=== PATIENT | female | born 1990 | race Caucasian/White ===

== ENCOUNTER 2020-08-09 17:37 | Inpatient (IN) | payer MEDICAID, SELFPAY ==
[2020-08-09 17:56] VITALS: PULSE 105; RESP 28; O2SAT 100; BMI 37.1
[2020-08-09] MEDS: OLANZapine 10 mg VIAL IM (18:12)
[2020-08-09 18:16] VITALS: PULSE 120; RESP 26
--- NOTE | 2020-08-09 18:25 | ED_ITS ---
HPI - Altered Mental Status General: Chief Complaint: Altered Mental Status Stated Complaint: AMS Time Seen by Provider: 08/09/20 17:56 History of Present Illness: HPI narrative: Unable to obtain a history from the patient. She is restless, not making sense when she is talking, appears intoxicated. Was brought in by EMS with concerns for altered mental status. The patient is very paranoid, saying she does not want her kids taken away from her and states she does not want to and asking also not to leave her. Immediately after that she then states that we are trying to kill her. complaint: altered mental status and intoxication Review of Systems General: Reports: ROS unobtainable due to mental status PFSH ED PFSH: Social History (Reviewed 08/09/20 @ 18:53 by Valentino Johnson MD, [facility] [place]) Current gender identity: Female Physical Exam Const: EXAM LIMITATIONS: altered mental status and behavioral limitations GENERAL APPEARANCE: anxious NUTRITIONAL APPEARANCE: obese HENMT: COMMON NORMALS: normocephalic and atraumatic HEAD & SCALP: normocephalic and atraumatic Eye: COMMON NORMALS: Equal, round and reactive pupils present, EOMs intact bilaterally, conjunctivae normal and no scleral icterus CONJUNCTIVA: Yes conjunctivae normal PUPIL: Yes Equal, round and reactive pupils present Resp: COMMON NORMALS: normal respiratory effort, No retractions, No use of accessory muscles and clear to auscultation bilaterally AUSCULTATION: clear to auscultation bilaterally Cardio: COMMON NORMALS: regular rhythm, S1 normal heart sound present and S2 normal heart sound present RATE: tachycardic RHYTHM: regular rhythm HEART SOUNDS: S1 normal heart sound present, S2 normal heart sound present and no murmurs GI: COMMON NORMALS: Normal to inspection, nondistended, normoactive bowel sounds present, Soft to palpation and non-tender PALPATION: Yes Soft to palpation Neuro: IBETH COMA SCALE: other (She is not oriented to time or place but she is to person) Psych: ATTITUDE: Yes bizarre and Yes uncooperative ACTIVITY/MOTOR BEHAVIOR: Yes psychomotor agitation SPEECH: Yes incoherent Course ED course: Patient who presented to the emergency department intoxicated and in psychosis secondary to meth use. She needed parenteral medication to get her to be cooperative enough for work up and evaluation. She was also noted to be hypokalemic. She is admitted to the NPU for further evaluation and management Vital Signs: Vital signs: Vital Signs Temperature 97.6 F 08/10/20 00:56 Pulse Rate 126 H 08/10/20 00:48 Respiratory Rate 17 08/10/20 00:48 Blood Pressure 191/117 08/10/20 00:48 Pulse Oximetry 95 08/10/20 00:48 MDM - Altered Mental Status MDM Narrative: Medical decision making narrative: Patient with acute psychosis secondary to stimulant use. She is admitted to the NPU for further evaluation and management. Medical Records: Attestation: I reviewed the patient's medical records. Lab Data: Attestation: I reviewed the patient's lab results. Labs: Lab Results 08/09/20 08/09/20 08/09/20 Range/Units 19:14 19:14 19:30 WBC 16.0 H (4.0-10.0) 10^3/ uL RBC 4.99 (4.1-5.3) 10^6/u L Hgb 14.8 (11.5-15.3) g/dL Hct 43.6 (37.0-47.0) % MCV 87.4 (81-99) fL MCH 29.7 (28.0-34.0) pg MCHC 33.9 (30.0-36.0) g/dL RDW 13.6 (12.1-15.1) % Plt Count 148 (130-400) 10^3/c mm MPV 11.0 H (7.4-10.4) fL Neut % (Auto) 89.5 % Lymph % (Auto) 5.7 % Barnes % (Auto) 4.1 % Eos % (Auto) 0.1 % Baso % (Auto) 0.2 % Neut # (Auto) 14.36 H (1.8-7.7) 10^3/u L Lymph # (Auto) 0.9 (0.8-4.8) 10^3/u L Barnes # (Auto) 0.7 (0.2-0.9) 10^3/u L Eos # (Auto) 0.0 (0.0-0.8) 10^3/u L Baso # (Auto) 0.0 (0.0-0.1) 10^3/u L Nucleated RBC % (a uto) 0 % Nucleated RBCs # 0.0 /100WBC Sodium 134 L (136-145) mmol/L Potassium 2.4 L* (3.5-5.1) mmol/L Chloride 91 L (98-107) mmol/L Carbon Dioxide 29 (22-29) mmol/L Anion Gap 16.4 (5-19) BUN 22 H (6-20) mg/dL Creatinine 1.2 H (0.5-0.9) mg/dL GFR Calculation 53.1 L (90-130) mL/min Glucose 149 H (65-115) mg/dL Calculated Osmolal ity 284 L (285-295) mOsm/k g Calcium 9.6 (8.5-10.5) mg/dL Total Bilirubin 1.6 H (0.15-1.2) mg/dL AST 77 H (0-32) U/L ALT 77 H (0-33) U/L Alkaline Phosphata se 121 H (35-105) IU/L Total Protein 8.5 (6.6-8.7) g/dL Albumin 4.2 (3.5-5.2) g/dL Globulin 4.3 (1.3-4.6) g/dL HCG, Qual Negative (Negative) Urine Color (Yellow) Urine Appearance (CLEAR) Urine pH (5-7) Ur Specific Gravit y (1.005-1.030) Urine Protein (Negative) Urine Glucose (UA) (Normal) Urine Ketones (Negative) Urine Blood (Negative) Urine Nitrate (Negative) Urine Bilirubin (Negative) Urine Urobilinogen (Negative) mg/dL Ur Leukocyte Maddie ase (Negative) Urine RBC (0-2) /hpf Urine WBC (0-5) /hpf Ur Squamous Epith Cells (0-5) /hpf Amorphous Sediment Urine Bacteria (NONE) /hpf Hyaline Casts /lpf Urine Mucus /hpf Salicylates < 0.3 L (3-10) mg/dL Urine Opiates Scre en (Negative) ng/mL Acetaminophen < 5.0 L (10-30) ug/mL Ur Barbiturates Sc reen (Negative) ng/mL Ur Phencyclidine S crn (Negative) ng/mL Ur Amphetamines Sc reen (Negative) ng/mL U Benzodiazepines Scrn (Negative) ng/mL Urine Cocaine Scre en (Negative) ng/mL U Marijuana (THC) Screen (Negative) ng/mL Ethyl Alcohol < 10 (0-10) mg/dL 08/09/20 08/09/20 Range/Units 19:30 19:30 WBC (4.0-10.0) 10^3/ uL RBC (4.1-5.3) 10^6/u L Hgb (11.5-15.3) g/dL Hct (37.0-47.0) % MCV (81-99) fL MCH (28.0-34.0) pg MCHC (30.0-36.0) g/dL RDW (12.1-15.1) % Plt Count (130-400) 10^3/c mm MPV (7.4-10.4) fL Neut % (Auto) % Lymph % (Auto) % Barnes % (Auto) % Eos % (Auto) % Baso % (Auto) % Neut # (Auto) (1.8-7.7) 10^3/u L Lymph # (Auto) (0.8-4.8) 10^3/u L Barnes # (Auto) (0.2-0.9) 10^3/u L Eos # (Auto) (0.0-0.8) 10^3/u L Baso # (Auto) (0.0-0.1) 10^3/u L Nucleated RBC % (a uto) % Nucleated RBCs # /100WBC Sodium (136-145) mmol/L Potassium (3.5-5.1) mmol/L Chloride (98-107) mmol/L Carbon Dioxide (22-29) mmol/L Anion Gap (5-19) BUN (6-20) mg/dL Creatinine (0.5-0.9) mg/dL GFR Calculation (90-130) mL/min Glucose (65-115) mg/dL Calculated Osmolal ity (285-295) mOsm/k g Calcium (8.5-10.5) mg/dL Total Bilirubin (0.15-1.2) mg/dL AST (0-32) U/L ALT (0-33) U/L Alkaline Phosphata se (35-105) IU/L Total Protein (6.6-8.7) g/dL Albumin (3.5-5.2) g/dL Globulin (1.3-4.6) g/dL HCG, Qual (Negative) Urine Color Yellow (Yellow) Urine Appearance Sl cloudy A (CLEAR) Urine pH 7 (5-7) Ur Specific Gravit y 1.010 (1.005-1.030) Urine Protein 3+ H (Negative) Urine Glucose (UA) Norm (Normal) Urine Ketones 1+ H (Negative) Urine Blood 3+ H (Negative) Urine Nitrate Negative (Negative) Urine Bilirubin Neg (Negative) Urine Urobilinogen 1 H (Negative) mg/dL Ur Leukocyte Maddie ase Trace H (Negative) Urine RBC Too numerous to c nt H (0-2) /hpf Urine WBC 15-25 H (0-5) /hpf Ur Squamous Epith Cells 25-40 H (0-5) /hpf Amorphous Sediment Not Reportable Urine Bacteria 1+ H (NONE) /hpf Hyaline Casts 0-4 H /lpf Urine Mucus 1+ /hpf Salicylates (3-10) mg/dL Urine Opiates Scre en Negative (Negative) ng/mL Acetaminophen (10-30) ug/mL Ur Barbiturates Sc reen Negative (Negative) ng/mL Ur Phencyclidine S crn Negative (Negative) ng/mL Ur Amphetamines Sc reen Positive H (Negative) ng/mL U Benzodiazepines Scrn Negative (Negative) ng/mL Urine Cocaine Scre en Negative (Negative) ng/mL U Marijuana (THC) Screen Negative (Negative) ng/mL Ethyl Alcohol (0-10) mg/dL EKG Data^: EKG 1: Attestation: I personally reviewed and interpreted this EKG as follows: EKG interpretation date: 08/09/20 EKG interpretation time: 19:31 Prior EKG tracings: not available for review Interpretation: Sinus tachycardia HR 102 LVH TWI in I,II Discharge Plan Discharge Patient Disposition: Admitted As Inpatient Admit Provider: Tobias Cota Clinical Impression: Acute psychosis, Substance abuse Condition: Stable Coding Level of Care Code ED Ecommerce Marketing Specialist for Chg Fwd Exam Comprehensive
[2020-08-09 19:25] LABS: Basophils % 0.2 %; Eosinophils % 0.1 %; Hematocrit 43.6 % (37.0-47.0); Hemoglobin 14.8 g/dL (11.5-15.3); Lymphocytes # 0.9 10^3/uL (0.8-4.8); Lymphocytes % 5.7 %; Mean Corpuscular HGB Conc 33.9 g/dL (30.0-36.0); Mean Corpuscular Hemoglobin 29.7 pg (28.0-34.0); Mean Corpuscular Volume 87.4 fL (81-99); Monocytes # 0.7 10^3/uL (0.2-0.9); Monocytes % 4.1 %; Neutrophils # 14.36 10^3/uL (1.8-7.7); Neutrophils % 89.5 %; Nucleated Red Blood Cells % 0 %; Platelet Count 148 10^3/cmm (130-400); Red Blood Count 4.99 10^6/uL (4.1-5.3); Red Cell Distribution Width 13.6 % (12.1-15.1)
[2020-08-09 19:45] LABS: Alanine Aminotransferase 77 U/L (0-33); Albumin Level 4.2 g/dL (3.5-5.2); Alkaline Phosphatase 121 IU/L (35-105); Anion Gap 16.4 (5-19); Aspartate Amino Transferase 77 U/L (0-32); Blood Urea Nitrogen 22 mg/dL (6-20); Calcium 9.6 mg/dL (8.5-10.5); Carbon Dioxide 29 mmol/L (22-29); Chloride 91 mmol/L (98-107); Globulin 4.3 g/dL (1.3-4.6); Glomerular Filtration Rate 53.1 mL/min (90-130); Glucose 149 mg/dL (65-115); Osmolality Calculated 284 mOsm/kg (285-295); Sodium 134 mmol/L (136-145); Total Bilirubin 1.6 mg/dL (0.15-1.2); Total Protein 8.5 g/dL (6.6-8.7)
[2020-08-09 19:59] LABS: Acetaminophen < 5.0 ug/mL (10-30); Alcohol Level < 10 mg/dL (0-10); Salicylate < 0.3 mg/dL (3-10)
[2020-08-09 20:00] VITALS: PULSE 76; RESP 17; O2SAT 94
[2020-08-09 20:02] LABS: Potassium 2.4 mmol/L (3.5-5.1)
[2020-08-09 20:14] LABS: HCG Qualitative Urine. Negative (Negative)
[2020-08-09] MEDS: LORazepam 2 mg/mL INJ 1 mL IM (20:15)
[2020-08-09 20:19] LABS: Amphetamines Screen Urine Positive (Negative); Barbiturates Screen Urine Negative (Negative); Benzodiazepines Screen Urine Negative (Negative); Cocaine Screen Urine Negative (Negative); Opiate Screen Urine Negative (Negative); PCP Screen Urine Negative (Negative); THC Screen Urine Negative (Negative)
[2020-08-09 20:21] LABS: Add Urine Microscopic? YES; Bilirubin Urine Neg (Negative); Blood Urine 3+ (Negative); Glucose Urine UA Norm (Normal); Ketones Urine 1+ (Negative); Leukocyte Esterase Urine Trace (Negative); Nitrate Urine Negative (Negative); Protein Urine 3+ (Negative); Urine Color Yellow (Yellow); Urobilinogen Urine 1 mg/dL (Negative); pH Urine 7 (5-7)
--- NOTE | 2020-08-09 20:21 | PC.NURSE ---
Patient resting in bed, until you try to ask her questions, get vitals or provide care. Patient then wakes up and starts moving around the bed and saying ouch. Patient has 1:1 sitter with her at bedside. Unable to get blood pressure because patient will not be still and tears the blood pressure cuff off when it gets tights.
[2020-08-09 20:27] LABS: Bacteria Urine 1+ /hpf; Hyaline Casts Urine 0-4 /lpf; Mucus Urine 1+ /hpf; RBC Urine TOO NUMEROUS TO CNT /hpf (0-2); Squamous Epithelial Cell Urine 25-40 /hpf (0-5); WBC Urine 15-25 /hpf (0-5)
[2020-08-09 20:28] LABS: Add Urine Culture? No
[2020-08-09] MEDS: potassium chloride oral liq 20 mEq/15 mL UDC 40 MEQ PO (20:39)
--- NOTE | 2020-08-09 21:09 | PC.NURSE ---
1:1 sitter with patient at bedside.
[2020-08-09 22:29] VITALS: BP 222/152
[2020-08-09] MEDS: hyDRALAzine 25 mg Tablet PO (23:49)
--- NOTE | 2020-08-09 23:53 | PC.NURSE ---
1:1 sitter at bedside
--- NOTE | 2020-08-09 23:54 | PC.NURSE ---
1:1 sitter at bedside
[2020-08-10] VITALS (8 sets, daily range): BP systolic 159–197; BP diastolic 99–143; PULSE 78–126; RESP 17–23; TEMP 36.4–37; O2SAT 95–98
--- NOTE | 2020-08-10 00:26 | PC.SOCIAL ---
Spoke with the patient, she gave this health technical writer permission to speak with her mother Saira Little [phone]. I called mother, she stated that her daughter has been sober from methamphetamines (Meth) for 6 months now. The patients toxicology report shows she was positive for meth, I did not disclose this with the mother. The patient is hard to wake but did talk to me a little. The mother stated that her daughter is not currently working and is not currently on disability and has not applied. She did see Dr. Wolfe when she was three years ago. She does not currently see a doctor (PCP). She is currently on probation. Her children are with the sister at this time, but the patients mother helps care for them. Patient needs Home Economics Extension Worker application Help Applying for [facility] (David Guidry has been emailed) PCP set up (Possibly Dr. Wolfe) Mother can get at [facility] possibly if patient will agree to go.
[2020-08-10] MEDS: nitroglycerin 1 gm/inch oint Pkt 1 INCH TOPICAL (00:27)
[2020-08-10] MEDS: metoprolol tartrate 50 mg Tablet PO (01:35)
--- NOTE | 2020-08-10 01:35 | PC.NURSE ---
1:1 sitter at bedside
--- NOTE | 2020-08-10 02:25 | PC.NURSE ---
1:1 sitter at bedside.
[2020-08-10] MEDS: cloNIDine 0.1 mg Tablet PO (02:37)
[2020-08-10] MEDS: nitroglycerin 0.4 mg sublingual Tablet SUBLINGUAL (02:42)
--- NOTE | 2020-08-10 05:43 | PC.NURSE ---
notified DR MONSALVE OF PATIENT HAVING TONGUE RING AND LIP RING THAT CAN NOT BE REMOVED.
--- NOTE | 2020-08-10 06:28 | PC.NURSE ---
UNABLE TO VERIFY ALLERGIES AND HOME MEDS WITH PATIENT DURING ADMISSION. PT WAS UNCOOPERATIVE AND KEPT FALLING ASLEEP. MESSAGE LEFT FOR DAY SHIFT TO VERIFY.
[2020-08-10] MEDS: potassium chloride ER 10 mEq Tablet 40 MEQ PO ×3 (10:20→20:29)
[2020-08-10] MEDS: amlodipine 10 mg Tablet PO (10:20)
[2020-08-10] MEDS: nicotine 2 mg Gum BUCCAL ×2 (11:11→20:29)
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
[2020-08-10] MEDS: trazodone 50 mg Tablet PO (20:29)
[2020-08-10] MEDS: hyDROXYzine 25 mg Capsule 50 MG PO (20:29)
[2020-08-11 06:00] VITALS: BP 190/115; PULSE 95; RESP 17; TEMP 36.8; O2SAT 93
[2020-08-11] MEDS: potassium chloride ER 10 mEq Tablet 40 MEQ PO (08:11)
[2020-08-11] MEDS: amlodipine 10 mg Tablet PO (08:12)
--- NOTE | 2020-08-11 10:00 | PC.NURSE ---
AMA Patient went into physician office to discuss hospital stay, patient came out to nurses station and states she wants to leave AMA. Dr. Ferreira explains to patient that she has to find clothing and a way to get home. Patient states she will walk home but has no clothing, and no one to bring her clothing. Her anger escalated and patient refused PO Ativan 2mg and PO Zyprexa 5mg. Patient called her mother yelling at her to get here to pick her up. Patient given clothing. Patient signed AMA waiver, she states she would never hurt herself because she has kids to live for. Patient mother at [facility] entrance to pick her up. Patient refused to wait for her belongings to be returned to her. Left $10 roll of quarters and some change, a towel, toe ring, an ear ring, and a ring.
--- NOTE | 2020-08-11 10:06 | PM.NDC ---
Diagnoses at Discharge Discharge Diagnosis (1) Acute psychosis: Status: Resolved (2) Substance abuse: Status: Chronic (3) Methamphetamine abuse: Status: Chronic Reason for Visit Reason for Visit: AMS Brief History: Was brought in by EMS with concerns for altered mental status. The patient is very paranoid, saying she does not want her kids taken away from her and states she does not want to and asking also not to leave her. Immediately after that she then states that we are trying to kill her. MD complaint: altered mental status and intoxication. She was admitted to the [facility] for definitive treatment of those issues. She presented to the unit with intermittent lethargy. Suggestive of a withdrawal syndrome. Each response came at the cost of multiple utterances of her name, and occasional shake or tapping of the bed. This comes after her being awake earlier and taking a shower. When her eyes opened they were clearly pinpoint and glassed over. Ultimately she was of limited effectiveness as a historian. 2 notes were identified in her record one from October 2013 and another from October 2019 and inpatient and outpatient note respectively. An excerpt of these notes are included below for historical assistance. Hospital Course Discharge Summary The patient was admitted to the adult psychiatric unit and entered into the form of individual and group therapies as part of the unit protocol. They were provided 24-hour access to medication supervision and therapeutic activities by trained psychiatric nursing. Over the first 24 hours, the patient was somewhat sedated from her experience in the emergency room. She was allowed her to rest and recuperate. On hospital day #3, she reported her desire to leave AGAINST MEDICAL ADVICE. She was a voluntary patient. There is no indication of imminent risk to self or others. However it is noted in her mental status that she was volatile, demanding, and exhibited poor problem-solving skills. In spite of efforts by staff to have her remain in the hospital for further assessment, she was allowed to leave AGAINST MEDICAL ADVICE.. Involuntary Hold Information 96 Hour Hold: 96 Hour Involuntary Admission: No Mental Status Exam MSE Comments: Discharge Mental Status Exam: Appearance: hygiene is good; no gross neurological deficits., gait is unremarkable; AIMS=0 Speech: Speech is of normal rate and rhythm and easily understood. Thought processes: Thought processes are concrete. Judgment is adequate for safety. Associations: intact Psychotic processes: There is no indication of guarding or paranoia. There is no attention to the internal stimuli. Auditory and visual hallucinations are denied. Judgment: Insight is fair. Problem solving skills are adequate for safety. Orientation: The patient is oriented to person, place time and situation. Memory: no deficits noted in immediate, intermediate, or remote spheres. Attention: The patient is alert and interpersonally engaged. Language: Verbalizations are coherent. Fund of knowledge: Fund of knowledge is adequate. Affect/Mood: Affect is labile with a euthymic mood. denied suicidal ideation Psychosis: perception unimpaired except through cognitive distortion and cognitive deficit; reality testing intact. Discharge Data Vitals: Last Vital Signs Temp 98.2 F 08/11/20 06:00 Pulse 95 08/11/20 06:00 Resp 17 08/11/20 06:00 BP 190/115 08/11/20 06:00 Pulse Ox 93 08/11/20 06:00 Discharge Plan Discharge Patient Disposition: Left Against Medical Advice Condition: Stable Prescriptions: No Action No Known Home Medications RF: 0 Referrals: [facility] [Outside] - 4-7 days ([facility]) provides individual therapy, case management and psychiatric medication management. Financial assistance is availabe if needed. ) [facility] [Outside] - 4-7 days (In needed and if wanted, [facility] ([facility]) provides substance abuse treatment. ) Discharge Date/Time: 08/11/20 10:00 Discharge Attestations N[facility] Time Spent in Discharge Care*: greater than 30 min Coding Level of Care Code Acute Turning Sander Tender for Guillermo Puente Diagnoses Acute psychosis F23 Substance abuse F19.10 Methamphetamine abuse F15.10
== END 2020-08-11 10:00 | disposition left against medical advice (07) | DRG 885 ==
LOC: ER 18:53 → NP 21:58
PROVIDERS: Family Medicine; Admitting Provider Psychiatry & Neurology Psychiatry; PCP Family Medicine; Visit Provider Psychiatry & Neurology Psychiatry
DX: F23 Brief psychotic disorder (principal); F15.10 Other stimulant abuse, uncomplicated; Z53.29 Procedure and treatment not carried out because of patient's decision for other reasons; F19.10 Other psychoactive substance abuse, uncomplicated
CPT/HCPCS: 12345; 80053; 80306; 80307; 81001; 81025; 85025; 96372; 99283; J2060; J3490

== ENCOUNTER 2020-09-22 09:50 | Inpatient (IN) | payer MEDICAID, SELFPAY ==
[2020-09-22] VITALS (10 sets, daily range): BP systolic 135–256; BP diastolic 78–156; PULSE 64–110; RESP 16–20; TEMP 36–36.9; O2SAT 93–99; BMI 39.3
--- NOTE | 2020-09-22 10:26 | PC.NURSE ---
At patients bedside to obtain urine sample and blood work. Patient starts crying and states I just wanna be honest with you there is meth in my system. I haven't used in a long time but I have felt so bad that I was trying to find something to give me the energy to clean the house. Patient educated that we are going to try to figure out what is going on and get her feeling better. Urine and blood obtained and sent to lab. Patient has no needs a this time. Will continue to monitor patient.
--- NOTE | 2020-09-22 10:37 | ED_ITS ---
HPI - Female Genitourinary General: Chief complaint: Urogenital-Female Stated complaint: ABD pain, Blood in Urine, Headache Time Seen by Provider: 09/22/20 09:51 History of Present Illness: HPI Narrative: 30-year-old female comes in complaining of abdominal pain predominantly in the right flank she has had this for several days now with nausea and vomiting and headache she notes her urine has been very dark as well. Said headache is been going on for almost a month. She has a known history of hypertension her blood pressure initially was extremely high however when I checked her cuff it was far too small for her arm and I do not believe that was an accurate blood pressure. MD elicited complaint: dysuria, flank pain and difficulty urinating Pertinent past history: recurrent UTIs Onset (ago): day(s) Location of symptoms: flank Severity: severe Female Urogenital Radiation: R Flank Quality of pain: cramping Consistency: constant Vaginal discharge: none Vaginal bleeding: none Urinary symptoms: Dysuria and Flank Pain Exacerbating factors: none Relieving factors: none Associated symptoms: Reports abdominal pain, fevers/chills, headache(s) and nausea; Deny short of breath, rash, seizures, syncope, vaginal bleeding, vaginal discharge or weakness Treatment prior to arrival: none Possible : unsure if Review of Systems Const: Reports: fever(s), chills, body aches, change in appetite, fatigue and malaise ENMT: Denies: throat pain, ear or mastoid pain, nasal discharge or nasal congestion Card: Denies: syncope Resp: Denies: dyspnea, productive cough or non-productive cough GI: Reports: abdominal pain and nausea : Denies: vaginal discharge Skin/Breast: Denies: rash or pruritus Neuro: Reports: headache(s) [facility] ED PFSH: Medical History (Updated 09/22/20 @ 13:07 by New Cassidy DO) Substance abuse Social History Current gender identity: Female Physical Exam Const: COMMON NORMALS: no acute distress GENERAL APPEARANCE: cooperative and comfortable ORIENTATION/CONSCIOUSNESS: Yes awake, Yes oriented to person, Yes oriented to place and Yes oriented to time HENMT: COMMON NORMALS: normocephalic, atraumatic and hearing grossly normal bilaterally HEAD & SCALP: normocephalic and atraumatic Neck/C-Spine: COMMON NORMALS: no JVD Resp: COMMON NORMALS: normal respiratory effort, No retractions, No use of accessory muscles and clear to auscultation bilaterally AUSCULTATION: clear to auscultation bilaterally Cardio: COMMON NORMALS: no JVD, regular rate, regular rhythm and No murmurs present (Cardio) RATE: regular rate RHYTHM: regular rhythm GI: COMMON NORMALS: Soft to palpation and No hepatosplenomegaly present AUSCULTATION: Yes normoactive bowel sounds PALPATION: Yes Soft to palpation, No Tenderness to palpation present (GI), No Guarding due to palpation present (GI) and Yes No hepatosplenomegaly present : SPECULUM EXAM - VAGINA: No vaginal bleeding OB/EXTERNAL & SPECULUM: No vaginal bleeding Extremity: COMMON NORMALS: normal to inspection, capillary refill normal, no clubbing, cyanosis or edema, no calf tenderness and no pedal edema Neuro: SENSORIUM/ORIENTATION: Yes oriented to person, Yes oriented to place and Yes oriented to time Skin: COMMON NORMALS: no rashes or lesions noted GENERAL SKIN EXAM: no rashes or lesions noted Course Vital Signs: Vital signs: Vital Signs Temperature 97.7 F 09/22/20 10:08 Pulse Rate 106 H 09/22/20 12:07 Respiratory Rate 17 09/22/20 12:07 Blood Pressure 225/140 09/22/20 12:07 Pulse Oximetry 97 09/22/20 12:07 MDM - Female MDM Narrative: Medical decision making narrative: CT showed abnormal gallbladder also significantly enlarged LVH. Echo has been ordered gallbladder ultrasound did not show any dilation the common bile duct did confirm cholelithiasis with no evidence of obstruction the gallbladder wall is thickened and contracted. Additionally there is evidence consistent with pyelonephritis on the ultrasound managing her other symptoms. Good admit patient replace her potassium start her on ceftriaxone order echocardiogram replace IV fluid discussed Dr. Campos. Orders have been written. Lab Data: Labs: Lab Results 09/22/20 09/22/20 09/22/20 Range/Units 10:26 10:26 10:26 WBC 12.7 H (4.0-10.0) 10^3/ uL RBC 3.55 L (4.1-5.3) 10^6/u L Hgb 10.7 L (11.5-15.3) g/dL Hct 32.5 L (37.0-47.0) % MCV 91.5 (81-99) fL MCH 30.1 (28.0-34.0) pg MCHC 32.9 (30.0-36.0) g/dL RDW 14.3 (12.1-15.1) % Plt Count 127 L (130-400) 10^3/c mm MPV 12.2 H (7.4-10.4) fL Neut % (Auto) 78.6 % Lymph % (Auto) 13.9 % Florence % (Auto) 5.3 % Eos % (Auto) 1.0 % Baso % (Auto) 0.5 % Neut # (Auto) 10.00 H (1.8-7.7) 10^3/u L Lymph # (Auto) 1.8 (0.8-4.8) 10^3/u L Florence # (Auto) 0.7 (0.2-0.9) 10^3/u L Eos # (Auto) 0.1 (0.0-0.8) 10^3/u L Baso # (Auto) 0.1 (0.0-0.1) 10^3/u L Nucleated RBC % (a uto) 0 % Nucleated RBCs # 0.0 /100WBC Sodium 135 L (136-145) mmol/L Potassium 2.2 L* (3.5-5.1) mmol/L Chloride 90 L (98-107) mmol/L Carbon Dioxide 31 H (22-29) mmol/L Anion Gap 16.2 (5-19) BUN 29 H (6-20) mg/dL Creatinine 4.0 H (0.5-0.9) mg/dL GFR Calculation 13.1 L (90-130) mL/min Glucose 151 H (65-115) mg/dL Calculated Osmolal ity 289 (285-295) mOsm/k g Lactic Acid (0.5-2.2) mmol/L Calcium 9.2 (8.5-10.5) mg/dL Total Bilirubin 0.6 (0.15-1.2) mg/dL AST 54 H (0-32) U/L ALT 37 H (0-33) U/L Alkaline Phosphata se 102 (35-105) IU/L Total Protein 6.9 (6.6-8.7) g/dL Albumin 3.4 L (3.5-5.2) g/dL Globulin 3.5 (1.3-4.6) g/dL HCG, Qual Negative (Negative) Urine Color (Yellow) Urine Appearance (CLEAR) Urine pH (5-7) Ur Specific Gravit y (1.005-1.030) Urine Protein (Negative) Urine Glucose (UA) (Normal) Urine Ketones (Negative) Urine Blood (Negative) Urine Nitrate (Negative) Urine Bilirubin (Negative) Urine Urobilinogen (Negative) mg/dL Ur Leukocyte Maddie ase (Negative) Urine RBC (0-2) /hpf Urine WBC (0-5) /hpf Ur Squamous Epith Cells (0-5) /hpf Amorphous Sediment Urine Bacteria (NONE) /hpf Urine Mucus /hpf 09/22/20 09/22/20 Range/Units 10:26 10:46 WBC (4.0-10.0) 10^3/ uL RBC (4.1-5.3) 10^6/u L Hgb (11.5-15.3) g/dL Hct (37.0-47.0) % MCV (81-99) fL MCH (28.0-34.0) pg MCHC (30.0-36.0) g/dL RDW (12.1-15.1) % Plt Count (130-400) 10^3/c mm MPV (7.4-10.4) fL Neut % (Auto) % Lymph % (Auto) % Florence % (Auto) % Eos % (Auto) % Baso % (Auto) % Neut # (Auto) (1.8-7.7) 10^3/u L Lymph # (Auto) (0.8-4.8) 10^3/u L Florence # (Auto) (0.2-0.9) 10^3/u L Eos # (Auto) (0.0-0.8) 10^3/u L Baso # (Auto) (0.0-0.1) 10^3/u L Nucleated RBC % (a uto) % Nucleated RBCs # /100WBC Sodium (136-145) mmol/L Potassium (3.5-5.1) mmol/L Chloride (98-107) mmol/L Carbon Dioxide (22-29) mmol/L Anion Gap (5-19) BUN (6-20) mg/dL Creatinine (0.5-0.9) mg/dL GFR Calculation (90-130) mL/min Glucose (65-115) mg/dL Calculated Osmolal ity (285-295) mOsm/k g Lactic Acid 1.8 (0.5-2.2) mmol/L Calcium (8.5-10.5) mg/dL Total Bilirubin (0.15-1.2) mg/dL AST (0-32) U/L ALT (0-33) U/L Alkaline Phosphata se (35-105) IU/L Total Protein (6.6-8.7) g/dL Albumin (3.5-5.2) g/dL Globulin (1.3-4.6) g/dL HCG, Qual (Negative) Urine Color Red (Yellow) Urine Appearance Bloody A (CLEAR) Urine pH 6.5 (5-7) Ur Specific Gravit y 1.010 (1.005-1.030) Urine Protein 3+ H (Negative) Urine Glucose (UA) Trace H (Normal) Urine Ketones Negative (Negative) Urine Blood 3+ H (Negative) Urine Nitrate Negative (Negative) Urine Bilirubin Neg (Negative) Urine Urobilinogen Norm (Negative) mg/dL Ur Leukocyte Maddie ase 1+ H (Negative) Urine RBC Too numerous to c nt H (0-2) /hpf Urine WBC >100 H (0-5) /hpf Ur Squamous Epith Cells 25-40 H (0-5) /hpf Amorphous Sediment Not Reportable Urine Bacteria 1+ H (NONE) /hpf Urine Mucus Trace /hpf Discharge Plan Discharge Patient Disposition: Admitted As Inpatient Clinical Impression: Pyelonephritis, Hypokalemia, LVH (left ventricular hypertrophy), Elevated transaminase level, Cholelithiasis, DENISA (acute kidney injury) Condition: Stable Coding Level of Care Code ED Dispatch Associate for [employer] Fwd Exam Comprehensive
[2020-09-22 10:40] LABS: Basophils # 0.1 10^3/uL (0.0-0.1); Basophils % 0.5 %; Eosinophils # 0.1 10^3/uL (0.0-0.8); Hematocrit 32.5 % (37.0-47.0); Hemoglobin 10.7 g/dL (11.5-15.3); Lymphocytes # 1.8 10^3/uL (0.8-4.8); Lymphocytes % 13.9 %; Mean Corpuscular HGB Conc 32.9 g/dL (30.0-36.0); Mean Corpuscular Hemoglobin 30.1 pg (28.0-34.0); Mean Corpuscular Volume 91.5 fL (81-99); Mean Platelet Volume 12.2 fL (7.4-10.4); Monocytes # 0.7 10^3/uL (0.2-0.9); Monocytes % 5.3 %; Neutrophils % 78.6 %; Nucleated Red Blood Cells % 0 %; Platelet Count 127 10^3/cmm (130-400); Red Blood Count 3.55 10^6/uL (4.1-5.3); Red Cell Distribution Width 14.3 % (12.1-15.1); White Blood Count 12.7 10^3/uL (4.0-10.0)
[2020-09-22] MEDS: sodium chloride 0.9% 1,000 ML 999 ML IV (10:50)
[2020-09-22] MEDS: ondansetron 2 mg/ML SDV 2 mL 4 MG IVP (10:50)
[2020-09-22] MEDS: ketorolac 30 mg/mL INJ IVP (10:51)
[2020-09-22 10:52] LABS: Alanine Aminotransferase 37 U/L (0-33); Albumin Level 3.4 g/dL (3.5-5.2); Alkaline Phosphatase 102 IU/L (35-105); Anion Gap 16.2 (5-19); Aspartate Amino Transferase 54 U/L (0-32); Blood Urea Nitrogen 29 mg/dL (6-20); Calcium 9.2 mg/dL (8.5-10.5); Carbon Dioxide 31 mmol/L (22-29); Chloride 90 mmol/L (98-107); Globulin 3.5 g/dL (1.3-4.6); Glomerular Filtration Rate 13.1 mL/min (90-130); Glucose 151 mg/dL (65-115); Osmolality Calculated 289 mOsm/kg (285-295); Sodium 135 mmol/L (136-145); Total Bilirubin 0.6 mg/dL (0.15-1.2); Total Protein 6.9 g/dL (6.6-8.7)
[2020-09-22 10:54] LABS: Potassium 2.2 mmol/L (3.5-5.1)
[2020-09-22 10:55] LABS: HCG Qualitative Urine. Negative (Negative)
[2020-09-22 11:05] LABS: Add Urine Microscopic? YES; Bilirubin Urine Neg (Negative); Blood Urine 3+ (Negative); Glucose Urine UA Trace (Normal); Ketones Urine Negative (Negative); Leukocyte Esterase Urine 1+ (Negative); Nitrate Urine Negative (Negative); Protein Urine 3+ (Negative); Urine Appearance Bloody (CLEAR); Urine Color Red (Yellow); Urobilinogen Urine Norm (Negative); pH Urine 6.5 (5-7)
[2020-09-22 11:06] LABS: Lactic Sepsis W/Reflex 1.8 mmol/L (0.5-2.2)
[2020-09-22 11:10] LABS: RBC Urine TOO NUMEROUS TO CNT /hpf (0-2)
[2020-09-22 11:11] LABS: Squamous Epithelial Cell Urine 25-40 /hpf (0-5); WBC Urine >100 /hpf (0-5)
[2020-09-22 11:12] LABS: Add Urine Culture? No; Bacteria Urine 1+ /hpf; Mucus Urine TRACE /hpf
--- NOTE | 2020-09-22 11:16 | CT_ITS ---
WS: [id number] CT ABDOMEN AND PELVIS WITH CONTRAST HISTORY: Right-sided abdominal pain with nausea. TECHNIQUE: Imaging performed of the abdomen and pelvis with IV contrast. Single phase imaging of the abdomen. Coronal and sagittal reformats are submitted. All CT scans at [facility] use at least one of these dose optimization techniques: automated exposure control; mA and/or kV adjustment per patient size (includes targeted exams where dose is matched to clinical indication); or iterativ e reconstruction. IV CONTRAST: Omnipaque 300; 95 mL IV. Oral contrast: No DLP: 1406.31 mGy.cm COMPARISON: 11/01/2011 Lower thorax: Significant change in appearance of the heart since the prior study from 2011. LEFT hea rt is enlarged with LEFT ventricular hypertrophy measuring up to 2 cm. No pericardial effusion. Mild compression of the RIGHT ventricle. No hiatal hernia. Liver/biliary system: Mild hepatic steatosis. No bile duct dilatation. Gallbladder: Gallbladder is moderately contracted. There is wall thickening and pericholecystic fluid . No definite stones identified. Pancreas: Normal. Spleen: Normal. Adrenal glands: Normal. Right kidney: Very slightly edematous but no obstruction or calcification. Left kidney: Mildly edematous with no obstruction or calcification. Aorta: Normal. Lymphadenopathy: None. Free fluid: None. GI tract: Normal appendix. No GI tract obstruction. Moderate constipation. Abdominal wall: Unremarkable abdominal wall. No hernia. Pelvis: Normal. Bones: Unremarkable. CT/CT abdomen pelvis w con* [id number] IMPRESSION: 1. Significantly contracted gallbladder with gallbladder wall thickening and s tones. Suspect acute cholecystitis versus nonfasting state. 2. Abnormal heart. Enlarged LEFT ventricle and LEFT ventricular hypertrophy. R ecommend evaluation by echocardiography. 3. Normal appendix.
[2020-09-22] MEDS: iohexol 300 mg/mL 100 mL Btl IV (11:33)
[2020-09-22] MEDS: amlodipine 10 mg Tablet PO (12:03)
[2020-09-22] MEDS: enalaprilat 1.25 mg/mL Inj IVP (12:03)
[2020-09-22] MEDS: cefTRIAXone 1,000 MG in sodium chloride 0.9% (plus) 50 ML 100 MG IV (12:05)
--- NOTE | 2020-09-22 12:20 | US_ITS ---
WS: [id number] Complete ABDOMINAL ULTRASOUND HISTORY: abd pain COMPARISON: CT 09/22/2020 Liver: 17.8 cm in length. Very slightly enlarged liver. No mass or bile duct dilatation. Gallbladder: Contracted gallbladder with diffuse wall thickening measuring up to 6 mm. No pericholecy stic fluid. Several stones in the lumen with the largest measuring 1.6 cm. Gallbladder wall thickness: 0.7 cm. Pancreas: Not visualized. CBD: 0.5 cm. Right kidney: 10.2 cm x 5.5 cm x 4.2 cm. Slight increased echogenicity of the kidney. No mass or obs truction. Left kidney: 9.0 cm x 5.6 cm x 4.3 cm. Increased echogenicity of the kidney. No mass or obstruction. Spleen: Normal size and echogenicity. Abdominal aorta and IVC are within normal limits. No ascites. US/US abdomen complete* [id number] IMPRESSION: 1. Cholelithiasis with a significantly contracted gallbladder and wall thicken ing. No pericholecystic fluid. 2. Echogenicity of each kidney. No hydronephrosis or mass identified. Correlat e for chronic medical renal disease.
[2020-09-22] MEDS: metoprolol tartrate 1 mg/1 mL SDV 5 mL 5 MG IV (13:38)
[2020-09-22] MEDS: metoprolol tartrate 50 mg Tablet PO (13:39)
[2020-09-22] MEDS: lidocaine 1% 5 ML in potassium chloride premix 100 ML 25 ML IV (13:42)
--- NOTE | 2020-09-22 15:29 | P.HP_ITS ---
Providers/Chief Complaint Admitting Physician: Camilo Mahmood MD Primary Care Provider: Laurent Wolfe MD Chief Complaint: ABD pain, Blood in Urine, Headache History of Present Illness Debo Little is a 30 year old female with past medical history of hypertension not on any medication, noncompliance, amphetamine abuse who presents to the ER today with right-sided flank pain getting worse for last 2 to 3 weeks, fever on and off for last 1 week, nausea. She states her urine has been getting more and more red, dark and concentrated for last 1 month getting worse for last 1 week. She states she has been having headache which is most likely secondary to her high blood pressures for last 1 to 2 months. Patient states she was diagnosed of high blood pressure when she was 20-year-old but has never taken any medications. She has been taking at least 3 ibuprofen/Tylenol every day for headaches for last 2 weeks. She has not checked her fever at home but does complain of subjective feeling of fever along with diaphoresis and chills. As per her last amphetamine abuse was a week ago and marijuana use was 3 weeks ago. In the ER white count shows 12.7, hemoglobin of 10.7, potassium of 2.2, sodium of 135, creatinine of 4, BUN of 29, AST/ALT of 54/37, UA which was bloody, 1+ leuk esterase, more than 100 WBCs, hCG negative. CT abdomen shows enlarged left ventricle with LVH, no renal obstruction, contracted gallbladder. Review of Systems General: Reports: 10 or more systems reviewed and unremarkable except in HPI and below Const: Denies: fever(s), chills, body aches, change in appetite, change in weight, malaise, night sweats, diaphoresis, change in sleep pattern, daytime sleepiness or snoring Eyes: Denies: change in vision, blurry vision, photophobia, eye discomfort or eye discharge ENMT: Denies: throat pain, enlarged tonsils, hoarseness, mouth pain, oral sores, dry mouth, tinnitus, nasal congestion or post nasal drip Card: Denies: chest pain, palpitations, irregular heart rhythm, edema, swelling of feet/ankles, lightheadedness, syncope, pre-syncope, dyspnea on exertion, orthopnea, leg pain with exertion or acrocyanosis Resp: Denies: dyspnea, productive cough, non-productive cough, wheezing, stridor, pain on inspiration, change in phlegm color, hemoptysis or chest con gestion GI: Denies: abdominal pain, nausea, vomiting, hematemesis, coffee ground emesis, dysphagia, heartburn, diarrhea, constipation, bloating, GI cramping, change in bowel habits, pain on defecation, hematochezia or melena : Denies: flank pain, dysuria, urinary frequency, urinary urgency, urinary hesitancy, nocturia or hematuria Musc: Denies: neck pain, back pain, extremity pain, joint pain, joint swelling, joint redness, joint stiffness or limited range of motion Neuro: Denies: headache(s), numbness in extremities, weakness in extremities, sensory changes, lack of coordination, difficulty walking, frequent falls, dizziness, vertigo, confusion, Slurred speech present, difficulty communicating thoughts or seizure-like activity Psych: Denies: anxiety, depression, mood swings, panic attacks, hopelessness or irritability Endo: Denies: polyuria, polydipsia, tired all the time, cold intolerance, excessive sweating, flushing or heat intolerance Bhavin/Lymph: Denies: easy bruising or easy bleeding All/Imm: Denies: tongue swelling, facial swelling or acute wheezing Medications/Allergies Home Medications Medication Instructions Recorded Confirmed Last Taken Type acetaminophen [Tylenol Extra 1,000 mg PO PRN 09/22/20 09/22/20 09/21/20 History Strength] Allergies Allergy/AdvReac Type Severity Reaction Status Date / Time No Known Allergies Allergy Verified 09/22/20 11:11 PFSH Acute PFSH: Medical History (Updated 09/22/20 @ 15:46 by Camilo Mahmood MD) Hypertension Methamphetamine abuse Substance abuse Family History (Updated 09/22/20 @ 15:30 by Camilo Mahmood MD) Other CAD (coronary artery disease) Hypertension Social History (Updated 09/22/20 @ 15:30 by Camilo Mahmood MD) Smoking and tobacco status: current every day smoker cigarettes Packs smoked per day: 0.5 Alcohol intake: never Substance/Drug Use: current Substance/Drug use type: Marijuana and Amphetamines Household members: family Housing: House Current gender identity: Female Female Reproductive History: Date of last menstrual period: 11/20/20 Vitals/I&O/Wt Last Vital Signs Temp 98.4 F 09/22/20 15:00 Pulse 66 09/22/20 15:00 Resp 16 09/22/20 15:00 BP 165/96 09/22/20 15:00 Pulse Ox 94 09/22/20 15:00 09/22/20 09/22/20 09/22/20 06:59 14:59 22:59 Intake Total 50 / 50 Balance 50 / 50 Weight last 48 hrs Weight 97.522 kg Physical Exam Narrative: EXAM NARRATIVE: General: No acute distress, AO x3, obese, tearful, anxious HEENT: PERRLA, pupils bilaterally equal and reactive Chest: Normal vesicular breath sounds, no added sounds, equal good air entry bilaterally CVS: S1-S2 regular, no murmurs, no tachycardia, S4 gallop, no rubs Abdomen: Soft, tender in right flank, renal angle tenderness on the right side, no organomegaly, bowel sounds present Neuro: No focal deficits, no facial deformity, AO x3, power 5/5 in all limbs Data : 09/22/20 10:26 09/22/20 10:26 Micro: Microbiology 09/22/20 13:50 Blood Culture - Preliminary Blood SPECIMEN COLLECTED 09/22/20 11:55 Blood Culture - Preliminary Blood SPECIMEN COLLECTED A&P Assessment and plan (1) Sepsis: Status: Acute (2) Pyelonephritis: Status: Acute (3) DENISA (acute kidney injury): Status: Acute (4) Hypertension: Status: Acute (5) LVH (left ventricular hypertrophy): Status: Acute (6) Methamphetamine abuse: Status: Chronic (7) Hypokalemia: Status: Acute (8) Hypertensive urgency: Status: Acute Additional A&P Information 30-year-old female who is noncompliant, possible history of hypertension since age of 20 presents to the hospital with right-sided flank pain, fever, decreased urine output for last 3 weeks found to have sepsis due to pyelonephritis, acute kidney injury. Sepsis: Evident from tachycardia, leukocytosis, fever. UA consistent with UTI and CT abdomen consistent with possible inflammation a round bilateral kidney suggestive of pyelonephritis. Pyelonephritis: Blood cultures sent in the ER. Urine culture, procalcitonin, MRSA swab, GC chlamydia, drug screen. For now start patient on Zosyn. Will de-escalate antibiotics as per the culture results. Follow-up urine culture. DENISA: Creatinine in 10.18. Currently 4. Medical reconciliation done for nephrotoxic drugs. Normal saline at 75 cc/h. Renal ultrasound, renal Doppler. Check urine lites, urine culture, urine eosinophils. Monitor urine output, BMP daily. Hypokalemia:We will replete potassium with 80 mEq oral. Hypertensive urgency/hypertension: Patient given multiple rounds of oral and IV antihypertensives in the ER. Currently blood pressure 160 systolic. Goal blood pressure less than 140/90 mmHg. Start patient on amlodipine 10 mg daily. Echocardiogram. We will add medications as per the blood pressures. Given the CT result showing LVH with left ventricular cardiomegaly, longstanding hypertension cannot rule out CAD cardiomyopathy. Will monitor echocardiogram. Will change medications as per the clinical scenario. Transaminitis: Most likely because of pain medications as an outpatient. Check hepatitis panel, HIV. Patient most likely require extensive follow-up as an outpatient. Patient counseled in detail. She verbalized understanding. Check iron panel, TSH, HbA1c, lipid panel. Full code. Renal diet. Heparin 5000 every 12 hourly. Attestations Medical Necessity Statement*: Admission for more than 2 midnights because of sepsis from pyelonephritis, acute kidney injury, hypertension. Time Spent in Patient Care: Greater than 35 minutes (>than 50% of time spent in counselling and/or direct pt care on unit) . Coding Level of Care Code Acute Seismic Engineer for Guillermo Puente Diagnoses Sepsis A41.9 Pyelonephritis N12 DENISA (acute kidney injury) N17.9 Hypertension I10 LVH (left ventricular hypertrophy) I51.7 Methamphetamine abuse F15.10 Hypokalemia E87.6 Hypertensive urgency I16.0
[2020-09-22 15:33] LABS: Amphetamines Screen Urine Positive (Negative); Barbiturates Screen Urine Negative (Negative); Benzodiazepines Screen Urine Negative (Negative); Cocaine Screen Urine Negative (Negative); Opiate Screen Urine Negative (Negative); PCP Screen Urine Negative (Negative); THC Screen Urine Negative (Negative)
[2020-09-22] MEDS: potassium chloride ER 20 mEq Tablet 80 MEQ PO (16:05)
[2020-09-22] MEDS: heparin 5,000 unit/mL INJ 1 mL 5000 UNIT SUBCUT (16:05)
[2020-09-22] MEDS: sodium chloride 0.9% 1,000 ML 75 ML IV (16:14)
[2020-09-22] MEDS: famotidine 20 mg Tablet PO (17:04)
[2020-09-22 17:12] LABS: Potassium, Radom Urine 25 mmol/L; Urine Random Chloride 41 mmol/L; Urine Random Sodium 53 mmol/L
[2020-09-22 17:29] LABS: Eosinophil Urine Eosinophils Seen; Urine Eosinophil Count 2 (0-0)
[2020-09-22 17:51] LABS: Creatinine Urine, Random 117 mg/dL (28-217)
[2020-09-22 17:53] LABS: Iron 71 ug/dL (37-145); Percent Saturation 21.7 % (20-50); Total Iron Binding Capacity 327 mcg/dl; Unsaturated Iron Binding 256 ug/dL (112-347)
[2020-09-22 18:19] LABS: Thyroid Stimulating Hormone 1.53 uIU/mL (0.27-4.20)
[2020-09-22] MEDS: piperacillin-tazobactam 3.375 GM in sodium chloride 0.9% (plus) 50 ML IV (19:02)
[2020-09-22] MEDS: lactulose oral liq 20 gm/30 mL UDC 10 GM PO (19:09)
[2020-09-22] MEDS: bisacodyl 5 mg Tablet 10 MG PO (19:09)
[2020-09-22 19:28] LABS: Hepatitis A Antibody IgM Non-Reactive (Nonreactive); Hepatitis B Core AB, Total Non-Reactive (Nonreactive); Hepatitis B Surface AB 222.8 (0-8.5); Hepatitis B Surface Antigen Non-Reactive (Nonreactive); Hepatitis C Virus Antibody Reactive (Nonreactive)
[2020-09-22 20:04] LABS: HIV 1 & 2 Antibody Non-Reactive (Non-Reactiv); HIV 1 & 2 Antigen Non-Reactive (Non-Reactiv)
[2020-09-22 23:46] LABS: Amphetamines Screen Urine Positive (Negative); Barbiturates Screen Urine Negative (Negative); Benzodiazepines Screen Urine Negative (Negative); Cocaine Screen Urine Negative (Negative); Opiate Screen Urine Negative (Negative); PCP Screen Urine Negative (Negative); THC Screen Urine Negative (Negative)
[2020-09-23] VITALS (11 sets, daily range): BP systolic 142–218; BP diastolic 82–130; PULSE 65–97; RESP 16–19; TEMP 36.3–36.7; O2SAT 92–95; BMI 39.3
--- NOTE | 2020-09-23 | US_ITS ---
WS: [id number] RENAL ULTRASOUND HISTORY: RENAL STENOSIS COMPARISON: 09/22/2020 TECHNIQUE: 2-D and color Doppler imaging of the kidney submitted. Right kidney: 11.7 cm x 6.4 cm x 7.5 cm. New since the prior examinations loss of the normal cortical medullary junction. Increasing echogenic ity throughout the kidney. No hydronephrosis. Again noted is the cyst in the upper pole of the RIGHT kidney which is probably a parapelvic cyst Left kidney: 10.2 cm x 6.4 cm x 6.1 cm. Increased echogenicity throughout the kidney with poor cortical medullary differentiation. Disc is di fficult to visualize due to body habitus. Aorta: Normal. Urinary Bladder: Nondistended. US/US renal BI* [id number] IMPRESSION: 1. No hydronephrosis. 2. Increased echogenicity of both kidneys since the study on 09/22/2020. Sugges t acute nephritis. There is no obstruction.
[2020-09-23] MEDS: morphine 4 mg/mL SDV 1 mL IVP (00:14)
[2020-09-23] MEDS: piperacillin-tazobactam 3.375 GM in sodium chloride 0.9% (plus) 50 ML IV ×2 (03:18→16:25)
[2020-09-23] MEDS: heparin 5,000 unit/mL INJ 1 mL 5000 UNIT SUBCUT ×2 (03:18→16:26)
--- NOTE | 2020-09-23 03:41 | PC.NURSE ---
Milk of Molasses Enema (300mls) administered by gravity enema bag and tube per rectum. Patient tolerated well. Patient educated to try to hold solution in for 20 minutes.
--- NOTE | 2020-09-23 05:00 | USCV_ITS ---
Debo Little Age: 30 Gender: F : 1990 Exam Date: 09/23/2020 06:24 Ordering Phys: Camilo Mahmood MD Technologist: Francia Kapoor Exam Location: [facility] Indication: STENOSIS Findings Normal aorta. Non visualization of the renal arteries from body habitus and bowel gas. Conclusions Nondiagnostic evaluation of the renal arteries due to body habitus. Dr. Leslye Eng DO (Electronically Signed) Final Date: 23 September 2020 08:08 S
[2020-09-23] MEDS: hyDRALAzine 20 mg/mL INJ 1 mL 10 MG IVP ×2 (05:06→11:14)
[2020-09-23 05:24] LABS: Basophils # 0.1 10^3/uL (0.0-0.1); Basophils % 0.6 %; Eosinophils # 0.2 10^3/uL (0.0-0.8); Eosinophils % 1.3 %; Hematocrit 28.8 % (37.0-47.0); Hemoglobin 9.3 g/dL (11.5-15.3); Lymphocytes # 1.9 10^3/uL (0.8-4.8); Mean Corpuscular HGB Conc 32.3 g/dL (30.0-36.0); Mean Corpuscular Hemoglobin 30.4 pg (28.0-34.0); Mean Corpuscular Volume 94.1 fL (81-99); Mean Platelet Volume 11.9 fL (7.4-10.4); Monocytes # 0.7 10^3/uL (0.2-0.9); Monocytes % 6.2 %; Neutrophils # 9.01 10^3/uL (1.8-7.7); Neutrophils % 75.1 %; Nucleated Red Blood Cells % 0 %; Platelet Count 130 10^3/cmm (130-400); Red Blood Count 3.06 10^6/uL (4.1-5.3)
[2020-09-23 05:50] LABS: Magnesium 2.2 mg/dL (1.7-2.3); Phosphorus 4.3 mg/dL (2.5-4.5)
[2020-09-23 05:51] LABS: Creatine Phosphokinase 56 U/L (26-192)
[2020-09-23 06:03] LABS: Alanine Aminotransferase 31 U/L (0-33); Albumin Level 3.1 g/dL (3.5-5.2); Alkaline Phosphatase 81 IU/L (35-105); Anion Gap 14.9 (5-19); Aspartate Amino Transferase 40 U/L (0-32); Blood Urea Nitrogen 34 mg/dL (6-20); Carbon Dioxide 27 mmol/L (22-29); Chloride 100 mmol/L (98-107); Glomerular Filtration Rate 11.2 mL/min (90-130); Glucose 111 mg/dL (65-115); Osmolality Calculated 296 mOsm/kg (285-295); Sodium 139 mmol/L (136-145); Total Bilirubin 0.4 mg/dL (0.15-1.2); Total Protein 6.1 g/dL (6.6-8.7)
[2020-09-23 06:06] LABS: Potassium 2.9 mmol/L (3.5-5.1)
[2020-09-23] MEDS: HYDROmorphone 1 mg/mL INJ 1 mL 2 MG IVP (06:24)
[2020-09-23] MEDS: potassium chloride ER 20 mEq Tablet 40 MEQ PO ×2 (06:25→13:52)
[2020-09-23] MEDS: sodium chloride 0.9% 1,000 ML 75 ML IV (08:21)
[2020-09-23] MEDS: famotidine 20 mg Tablet PO ×2 (08:22→17:39)
[2020-09-23] MEDS: amlodipine 10 mg Tablet PO (08:22)
[2020-09-23] MEDS: sennosides-docusate Tablet 1 TAB PO (08:22)
--- NOTE | 2020-09-23 08:54 | PC.CHAP ---
Pastoral Care Encounter/Spiritual Assessment Type of Contact [] Declined communication analyst visit [] Patient/Family/Request visit [] Outpatient visit [] Follow-up visit [] Physician referral [] Code/Alert [] Routine visit [] Staff referral [] Actively dying [x] Patient sleeping [] Family support [] [] Out of room [] Palliative care [] [] Receiving care in room [] Pre-surgical visit [] Trauma [] Long length of stay [] ICU visit [] Other: Relational/Emotional Strength [] Patient feels connected with others/family/visitors/staff [] Distress [] Loneliness/isolation [] Abandonment Spirituality of Patient [] Person of Edith [] Attends Yazidism of their Edith [] Believes in Prayer [] Reads Bible or Pentecostal materials [] There are Spiritual issues to be addressed Hotel Baggage Handler Interventions [] Prayer [] Active listening [] Non-anxious presence [] Spiritual/emotional support [] Crisis/trauma care [] Spiritual counseling [] Bereavement support [] Provided bereavement packet [] Provided Bible/devotional materials [] Provided toy/stuffed animal, coloring book to patient or family member [] Provided Communion [] Anointing/[place] [] Salvation [] Completed spiritual assessment [] Other: Impact on Illness or Injury [] Angry [] Fearful [] Anxious [] Often cries [] Exhaustion [] Unable to work [] Unable to attend buddhist [] Unable to walk/stand [] Unable to read [] Unable to drive [] Unable to eat/drink [] Unable to sleep [] Unable to be with family [] Patient intubated [] Other: Summary Time spent with patient
--- NOTE | 2020-09-23 09:59 | PC.RESP ---
SMOKING CESSATION INFORMATION SENT TO PATIENT.
[2020-09-23] MEDS: TRAMadol 50 mg Tablet PO (12:20)
--- NOTE | 2020-09-23 12:48 | PM.CONSULT ---
Providers/Reason For Consult Consulting Physican/Specialty*: Nephrology Reason for Consult*: Renal Failure Attending Physician: Camilo Mahmood MD Primary Care Provider: Laurent Wolfe MD History of Present Illness History of Present Illness Thank you for consultation, today at the pleasure of reviewing this 30-year-old female. She presents with abdominal pain, severe, diffuse. On admission she had a CT scan of the abdomen and pelvis which demonstrated slight edema of both kidneys subsequent kidney ultrasound scan demonstrated increased echogenicity of both kidneys suggestive of acute nephritis, admission urinalysis demonstrated microscopic hematuria, pyuria, bacteria. Blood cultures are sent and are pending. She received a diagnosis of pyelonephritis and is currently being treated with Zosyn. She is still in considerable pain, frequently asking for narcotic analgesics during my interview. She was diagnosed with high blood pressure 5 years ago following the of her child. She has not taken medication for this, on arrival her blood pressure was 220/149, today it is 170-180 systolic. In July creatinine was 1.2, yesterday was 4, today 4.6 mg/dL. No known prior history of acute or chronic kidney disease, she has never seen a kidney specialist or required hemodialysis. Her urine output may not be fully recorded, however, is noted to be 100 mL over the last 24 hours. Of note her U tox is positive for amphetamines. She denies other drugs of abuse. She is also noted to have hepatitis C antibody positivity Review of Systems Narrative: ROS - 12 point review of systems completed per HPI and subjective assessment, this includes Constitutional: Weakness, fatigue Respiratory: No SOB on exertion, comfortable at rest CardioVasc: No chest pain, palpitations Gastrointestinal: No nausea, no vomiting Neurological: No seizures, no AMS Derm: No new rashes, lesions or wounds Immunological: No seasonal and no food allergies Meds/Allergies Home Medications and Allergies Home Medications Medication Instructions Recorded Confirmed Last Taken Type acetaminophen [Tylenol Extra 1,000 mg PO PRN 09/22/20 09/22/20 09/21/20 History Strength] Allergies Allergy/AdvReac Type Severity Reaction Status Date / Time No Known Allergies Allergy Verified 09/22/20 11:11 Current Medications Current Medications Generic Name Dose Route Start Last Admin Trade Name Freq PRN Reason Stop Dose Admin Amlodipine Besylate 10 mg 09/23/20 09:00 09/23/20 08:22 Amlodipine 10 Mg Tablet PO 10 mg DAILY GENNY Administration Bisacodyl 10 mg 09/22/20 15:15 09/22/20 19:09 Bisacodyl 5 Mg Tablet PO 10 mg DAILY PRN Administration CONSTIPATION Famotidine 20 mg 09/22/20 18:00 09/23/20 08:22 Famotidine 20 Mg Tablet PO 20 mg BID GENNY Administration Heparin Sodium (Beef Lung) 5,000 unit 09/22/20 16:00 09/23/20 03:18 Heparin 5,000 Unit/Ml Inj 1 Ml SUBCUT 5,000 unit Q12H GENNY Administration Hydralazine HCl 10 mg 09/22/20 15:18 09/23/20 11:14 Hydralazine 20 Mg/Ml Inj 1 Ml IVP 10 mg Q4H PRN Administration SBP more than 150 mmhg Piperacillin Sod/Tazobactam 50 mls @ 12.5 mls/hr 09/22/20 16:00 09/23/20 07:18 Sod 3.375 gm/ Sodium Chloride IV Infused Q12H GENNY Infusion Protocol Sodium Chloride 1,000 mls @ 75 mls/hr 09/22/20 15:15 09/23/20 08:21 Sodium Chloride 0.9% IV 75 mls/hr .[id number] GENNY Administration Lactulose 10 gm 09/22/20 15:15 09/22/20 19:09 Lactulose Oral Liq 20 Gm/30 Ml Udc PO 10 gm DAILY PRN Administration CONSTIPA Senna/Docusate Sodium 1 tab 09/23/20 09:00 09/23/20 08:22 Sennosides-Docusate Tablet PO 1 tab DAILY GENNY Administration Tramadol HCl 50 mg 09/23/20 11:26 09/23/20 12:20 Tramadol 50 Mg Tablet PO 50 mg Q8H PRN Administration MODERATE PAIN PFSH Acute PFSH: Medical History (Updated 09/22/20 @ 15:46 by Camilo Mahmood MD) Hypertension Methamphetamine abuse Substance abuse Family History (Updated 09/22/20 @ 15:30 by Camilo Mahmood MD) Other CAD (coronary artery disease) Hypertension Social History (Updated 09/22/20 @ 15:30 by Camilo Mahmood MD) Smoking and tobacco status: current every day smoker cigarettes Packs smoked per day: 0.5 Alcohol intake: never Substance/Drug Use: current Substance/Drug use type: Marijuana and Amphetamines Household members: family Housing: House Current gender identity: Female Female Reproductive History: Date of last menstrual period: 09/05/20 Vitals/I&O/Wt Last Vital Signs Temp 97.4 F L 09/23/20 11:12 Pulse 93 09/23/20 11:12 Resp 18 09/23/20 11:12 BP 180/100 09/23/20 11:12 Pulse Ox 95 09/23/20 11:12 09/22/20 09/23/20 09/23/20 22:59 06:59 14:59 Intake Total 585 / 1635 1050 / 2685 50 / 50 Output Total 100 / 100 Balance 485 / 1535 1050 / 2585 50 / 50 Weight last 48 hrs Weight 97.522 kg Weight 97.522 kg Physical Exam Narrative: EXAM NARRATIVE: Constitutional: Awake, some distress HEENT: Wet mucosa, no jvp, non icteric Lungs: Bilaterally clear without discernible wheeze, rales in all lung zones CVS: S1 S2, no murmurs Abdo: Soft, BS ok, pain in the right flank Ext 4: Minimal edema, peripheral perfusion with no cyanosis Neurological: Grossly non-focal Data Micro: Micro: Microbiology 09/22/20 11:55 Blood Culture - Pr eliminary Blood NEGATIVE TO BHAVESH E 09/22/20 05:25 MRSA Culture - Fin al Nose 09/22/20 13:50 Blood Culture - Pr eliminary Blood SPECIMEN COLLEC JUNIOR A&P Additional A&P Information 1. DENISA Given the historically untreated and malignant hypertension seen on admission, this is the leading differential for the cause of her renal failure. Hopefully there is an element of reversibility following control of her blood pressure. It is noted that she has both pyuria and microscopic hematuria, and hence acute glomerulonephritis is not excluded in this specific case. We are currently treating her for pyelonephritis, and once we have completed this, she may be a candidate for kidney biopsy. Given that she has hepatitis C positivity this does raise the possibility of membranoproliferative glomerulonephritis and cryoglobulinemia. I requested a board and serological evaluation including LAURY, complement profile, cryoglobulin screen, hepatitis C serology At this time she does not require hemodialysis, however, she is certainly at high risk for requiring this over the next 24-48 hours. Avoid usual nephrotoxic medications, Dose medications for GFR less than 15. 2. Hypertension It is noted that she has a low potassium, admission bicarb was also elevated, this would be in keeping with a mineralocorticoid type effect. It is noted that the CT scan did not demonstrate any adrenal adenomas, however, other differentials for this picture include Felix syndrome, dexamethasone remedial hyperaldosteronism etc. Severe renal artery stenosis i.e. from fibromuscular dysplasia may also cause this. Renal Dopplers were attempted however given body habitus they were nondiagnostic. May consider MRI in the next few days when she settles down. In the meantime, agree with up titration of antihypertensive medications. She may benefit from spironolactone. 3. UTI Currently diagnosed with pyelonephritis, receiving antibiotics with Zosyn. Cultures currently pending. Thank you for consultation, as always it is a pleasure to follow these patients with you Cristino Crespo MD Nephrology [phone] Patient seen and examined via telemedicine, with the assistance of the bedside RN Consult Attestations Medical Necessity Statement: sunithaal for DENISA Coding Level of Care Code Acute Leadership Program Associate for Guillermo Puente
--- NOTE | 2020-09-23 13:25 | PM.PN ---
Subjective Subjective: Interval history: Acute events overnight. Lying comfortably in bed. Having occasional flank pains. Denies any nausea, vomiting. Blood pressure continues to remain high. Has remained afebrile. Documented urine output just 100 cc.seems incorrect. Vitals/I&O/Wt Last Vital Signs Temp 97.4 F L 09/23/20 11:12 Pulse 93 09/23/20 11:12 Resp 18 09/23/20 11:12 BP 180/100 09/23/20 11:12 Pulse Ox 95 09/23/20 11:12 09/22/20 09/23/20 09/23/20 22:59 06:59 14:59 Intake Total 585 / 1635 1050 / 2685 270 / 270 Output Total 100 / 100 300 / 300 Balance 485 / 1535 1050 / 2585 -30 / -30 Weight last 48 hrs Weight 97.522 kg Weight 97.522 kg Physical Exam Narrative: EXAM NARRATIVE: General: No acute distress, AO x3, obese, tearful, anxious HEENT: PERRLA, pupils bilaterally equal and reactive Chest: Normal vesicular breath sounds, no added sounds, equal good air entry bilaterally CVS: S1-S2 regular, no murmurs, no tachycardia, S4 gallop, no rubs Abdomen: Soft, tender in right flank, renal angle tenderness on the right side, no organomegaly, bowel sounds present Neuro: No focal deficits, no facial deformity, AO x3, power 5/5 in all limbs Data : 09/23/20 05:08 09/23/20 05:08 Micro: Microbiology 09/22/20 11:55 Blood Culture - Preliminary Blood NEGATIVE TO DATE 09/22/20 05:25 MRSA Culture - Final Nose 09/22/20 13:50 Blood Culture - Preliminary Blood SPECIMEN COLLECTED A&P Assessment and plan (1) Sepsis: Status: Acute (2) Pyelonephritis: Status: Acute (3) DENISA (acute kidney injury): Status: Acute (4) Hypertension: Status: Acute (5) LVH (left ventricular hypertrophy): Status: Acute (6) Methamphetamine abuse: Status: Chronic (7) Hypokalemia: Status: Acute (8) Hypertensive urgency: Status: Acute Additional A&P Information 30-year-old female who is noncompliant, possible history of hypertension since age of 20 presents to the hospital with right-sided flank pain, fever, decreased urine output for last 3 weeks found to have sepsis due to pyelonephritis, acute kidney injury. Sepsis: Evident from tachycardia, leukocytosis, fever. UA consistent with UTI and CT abdomen consistent with possible inflammation around bilateral kidney suggestive of pyelonephritis. Pyelonephritis: Blood cultures sent in the ER. Urine culture pending, MRSA swab negative, GC chlamydia pending, drug screen positive for amphetamines and marijuana. For now continue with Zosyn and will de-escalate antibiotics as per the culture results. We will ask micro lab to run of urine culture. Blood cultures have remained negative. DENISA: Creatinine trending up to 4.6 today. Fena?1.3 suggestive of intrinsic disease most likely secondary to chronic uncontrolled hypertension, chronic use of NSAIDs. Stop IV fluids as patient is taking orally well. Renal ultrasound results appreciated. Renal arteries not properly visualized. Will consult nephrology for further assessment. Strict urine output monitoring. LAURY profile has been sent results pending. Hypokalemia:We will replete potassium with 80 mEq oral. Hypertensive urgency/hypertension: Patient given multiple rounds of oral and IV antihypertensives in the ER. Currently blood pressure 160 systolic. Goal blood pressure less than 140/90 mmHg. Cardiogram pending. Patient is already on amlodipine 10 mg daily. Start patient on Coreg 6.25 mg twice daily, hydralazine 10 mg 3 times daily for now. Will uptitrate the medications as per the blood pressure. Given the CT result showing LVH with left ventricular cardiomegaly, longstanding hypertension cannot rule out CAD cardiomyopathy. Will monitor echocardiogram. Will change medications as per the clinical scenario. Transaminitis: Most likely because of pain medications as an outpatient. Hepatitis panel, HIV negative. Patient most likely require extensive follow-up as an outpatient. Patient counseled in detail. She verbalized understanding. Full code. Renal diet. Heparin 5000 every 12 hourly. Attestations Medical Necessity Statement*: Hospitalization for management of sepsis from pyelonephritis and DENISA with creatinine of 4.6 Time Spent in Patient Care: Greater than 35 minutes (>than 50% of time spent in counselling and/or direct pt care on unit). Coding Level of Care Code Acute Extension Service Supervisor for Guillermo Puente Diagnoses Sepsis A41.9 Pyelonephritis N12 DENISA (acute kidney injury) N17.9 Hypertension I10 LVH (left ventricular hypertrophy) I51.7 Methamphetamine abuse F15.10 Hypokalemia E87.6 Hypertensive urgency I16.0
[2020-09-23] MEDS: hyDRALAzine 10 mg Tablet PO ×2 (13:49→20:36)
[2020-09-23 14:23] LABS: Complement C3 136 mg/dL (90-180)
[2020-09-23 14:36] LABS: Urine Creatinine 113 mg/dL (28-217)
--- NOTE | 2020-09-23 14:54 | USCV_ITS ---
Debo Little Age: 30 Gender: F : 1990 Exam Date: 09/23/2020 06:34 Ordering Phys: New Cassidy DO Technologist: Francia Kapoor Exam Location: [facility] [place] Indication: LVH BP: 189 / 82 HR: 88 Rhythm: Sinus Technical Quality: Adequate MEASUREMENTS (Male / Female) Normal Values 2D ECHO LV Diastolic Diameter PLAX 4.8 cm 4.2 - 5.9 / 3.9 - 5.3 cm LV Systolic Diameter PLAX 4.0 cm LV Chamber Size 3.1 cm IVS Diastolic Thickness 1.6 cm 0.6 - 1.0 / 0.6 - 0.9 cm IVS Systolic Thickness 1.9 cm LVPW Diastolic Thickness 2.7 cm 0.6 - 1.0 / 0.6 - 0.9 cm LVPW Systolic Thickness 3.1 cm RV Chamber Size 3.1 cm LVOT Diameter 2.0 cm LV Ejection Fraction 2D Teich 37.1 % LV Ejection Fraction MOD 2C 48.4 % LV Ejection Fraction 2C AL 48.3 % LA Diameter 4.0 cm LA Width 3.9 cm LA Height 4.4 cm RA Width 2.5 cm RA Height 4.0 cm Aorta at Sinotubular Diameter 2.8 cm M-MODE LV Diastolic Diameter MM 6.4 cm 4.2 - 5.9 / 3.9 - 5.3 cm LV Systolic Diameter MM 4.6 cm LV Ejection Fraction MM Teich 54.3 % IVS Diastolic Thickness MM 1.3 cm 0.6 - 1.0 / 0.6 - 0.9 cm IVS Systolic Thickness MM 2.1 cm LVPW Diastolic Thickness MM 1.6 cm 0.6 - 1.0 / 0.6 - 0.9 cm LVPW Systolic Thickness MM 2.0 cm Aortic Annulus Diameter 3.0 cm LA Ao Ratio MM 1.4 MV E Point Septal Separation 1.4 cm DOPPLER AV Peak Velocity 192.0 cm/s LVOT Peak Velocity 126.0 cm/s AV Area Cont Eq vti 2.5 cm squared AV Area Cont Eq pk 2.1 cm squared MV Area PHT 8.5 cm squared Mitral E to A Ratio 4.1 MV E' Velocity 63.0 cm/s Mitral E to MV E' Ratio 11.5 Mitral E to LV E' Lateral Ratio 16.6 Mitral E to LV E' Septal Ratio 8.8 TR Peak Velocity 212.3 cm/s TR Peak Gradient 18.0 mmHg TV Peak E Velocity 71.0 cm/s Right Atrial Pressure 3.0 mmHg Pulmonary Artery Systolic Pressu 21.0 mmHg PV Peak Velocity 96.0 cm/s RV Acceleration Time 0.2 s RV Ejection Time 0.4 s RV AcT/ET 0.6 FINDINGS Left Ventricle Normal LV size with diminished ejection fraction of 48%. Mild diffuse hypokinesia of the left ventricle. Moderate concentric left renal hypertrophy Grade I/IV diastolic dysfunction (abnormal relaxation filling pattern), normal to mildly elevated filling pressures. Right Ventricle The right ventricle is normal in size and function. Right Atrium The right atrium is normal in size. Left Atrium Mildly increased left atrial size. Mitral Valve Mildly thickened mitral valve. Trace to mild mitral valve regurgitation. Aortic Valve No gross abnormalities noted. LVOT velocity was 1.26 m/s. Aortic valve peak velocity was 1.92 m/s. Valsalva maneuver was not performed Tricuspid Valve No gross abnormalities noted Pulmonic Valve No gross abnormalities noted Pericardium Normal pericardium without effusion. Aorta Normal ascending aorta dimension. CONCLUSIONS Normal LV size with diminished ejection fraction of 48%. Mild diffuse hypokinesia of the left ventricle. Moderate concentric left renal hypertrophy Grade I/IV diastolic dysfunction (abnormal relaxation filling pattern), normal to mildly elevated filling pressures. Mildly thickened mitral valve. Trace to mild mitral valve regurgitation. There is no pericardial effusion. There are no intracardiac masses. The above features may suggest hypertrophic cardiomyopathy with no significant resting outflow tract obstruction. No similar previous studies are available for comparison. Dr Zion Houston MD [facility] (Electronically Signed) Final Date: 24 September 2020 00:46 S
[2020-09-23 15:13] LABS: UPRO/UCREAT Ratio 7.65 mg/mg CR; Urine Protein Random 865 mg/dL
[2020-09-23 15:16] LABS: Estmated Average Glucose 74; Hemoglobin A1C 4.2 % (4.0-6.0)
[2020-09-23] MEDS: carvedilol 6.25 mg Tablet PO (16:25)
--- NOTE | 2020-09-23 19:23 | PC.NURSE ---
Report to Angel LEVIN at this time.
[2020-09-24] VITALS (9 sets, daily range): BP systolic 148–187; BP diastolic 81–100; PULSE 87–110; RESP 16–20; TEMP 36.4–37.2; O2SAT 93–99
[2020-09-24] MEDS: TRAMadol 50 mg Tablet PO ×2 (02:03→20:03)
[2020-09-24] MEDS: heparin 5,000 unit/mL INJ 1 mL 5000 UNIT SUBCUT ×2 (03:22→15:23)
[2020-09-24] MEDS: piperacillin-tazobactam 3.375 GM in sodium chloride 0.9% (plus) 50 ML IV ×2 (06:06→18:04)
[2020-09-24] MEDS: amlodipine 10 mg Tablet PO (08:55)
[2020-09-24] MEDS: carvedilol 6.25 mg Tablet PO ×2 (08:55→09:54)
[2020-09-24] MEDS: hyDRALAzine 10 mg Tablet PO (08:55)
[2020-09-24] MEDS: famotidine 20 mg Tablet PO ×2 (08:55→18:06)
[2020-09-24] MEDS: sennosides-docusate Tablet 1 TAB PO (08:55)
--- NOTE | 2020-09-24 09:21 | P.PN_ITS ---
Subjective Subjective: Interval history: No acute events overnight. Denies any nausea, vomiting, headache. Laying comfortably in bed. Getting out of bed to pass urine. Complaining of occasional headache. States back pain is better. Vitals/I&O/Wt Last Vital Signs Temp 98.2 F 09/24/20 07:48 Pulse 110 H 09/24/20 07:48 Resp 18 09/24/20 07:48 BP 180/100 09/24/20 07:48 Pulse Ox 93 09/24/20 07:48 09/23/20 09/24/20 09/24/20 22:59 06:59 14:59 Intake Total 290 / 560 200 / 200 Output Total 600 / 1300 900 / 900 Balance -310 / -740 -700 / -700 Weight last 48 hrs Weight 104.417 kg Weight 97.522 kg Weight 97.522 kg Physical Exam Narrative: EXAM NARRATIVE: General: No acute distress, AO x3, sleepy but wakes up to give appropriate complete answers HEENT: PERRLA, pupils bilaterally equal and reactive Chest: Normal vesicular breath sounds, no added sounds, equal good air entry bilaterally CVS: S1-S2 regular, no murmurs, no tachycardia, S4 gallop, no rubs Abdomen: Soft, tender in right flank, renal angle tenderness on the right side, no organomegaly, bowel sounds present Neuro: No focal deficits, no facial deformity, AO x3, power 5/5 in all limbs Data : 09/24/20 09:51 09/24/20 09:51 Micro: Microbiology 09/22/20 10:26 Urine Culture - Preliminary Urine,Clean Catch 09/22/20 23:25 Chlamydia trachomatis (ALEXANDREA) - Final Urine Random Neisseria gonorrhoeae (ALEXANDREA) - Final 09/22/20 13:50 Blood Culture - Preliminary Blood NEGATIVE TO DATE 09/22/20 11:55 Blood Culture - Preliminary Blood NEGATIVE TO DATE 09/22/20 05:25 MRSA Culture - Final Nose A&P Assessment and plan (1) Sepsis: Status: Acute (2) Pyelonephritis: Status: Acute (3) Chlamydia infection: Status: Acute (4) DENISA (acute kidney injury): Status: Acute (5) Hypertensive urgency: Status: Acute (6) Hypertension: Status: Acute (7) Cardiomyopathy: Status: Acute (8) LVH (left ventricular hypertrophy): Status: Acute (9) Hepatitis C: Status: Acute (10) Hypokalemia: Status: Acute (11) Methamphetamine abuse: Status: Chronic Additional A&P Information 30-year-old female who is noncompliant, possible history of hypertension since age of 20 presents to the hospital with right-sided flank pain, fever, decreased urine output for last 3 weeks found to have sepsis due to pyelonephritis, acute kidney injury. Sepsis: Evident from tachycardia, leukocytosis, fever. UA consistent with UTI and CT abdomen consistent with possible inflammation around bilateral kidney suggestive of pyelonephritis. Pyelonephritis: Continue with Zosyn at current dose. Will de-escalate antibiotics as per the culture results. Blood cultures, urine culture remain negative preliminary. MRSA negative. Neisseria gonorrhea negative, chlamydia positive lood cultures sent in the ER. Give patient azithromycin 1 g 1 dose. Discussed with patient in detail needing for her sexual partner to be treated as well. She states she does not have any sexual partner at present and her is in group home. HIV negative, hepatitis panel positive for hepatitis C. DENISA: Creatinine stable at 4.6 today. Fena?1.3 suggestive of intrinsic disease most likely secondary to chronic uncontrolled hypertension, chronic use of NSAIDs. Patient having good urine output with documented 2.2 L in last 24 hours. Renal ultrasound results appreciated. Renal arteries not properly visualized. Appreciate nephrology recommendations. LAURY profile has been sent results pending. Hypokalemia:We will replete potassium with 80 mEq oral. Hypertensive urgency/hypertension: Blood pressure is elevated going up to 180 systolics in between. Goal blood pressure less than 140/90 mmHg. Echocardiogram consistent with cardiomyopathy. Shows EF of 48% with global LV hypokinesia, moderate LVH, grade 1 diastolic dysfunction LVOT velocity of 1.26 m/s though Valsalva maneuver was not performed. Continue with amlodipine 10 mg daily. Increase to Coreg 12.5 mg twice daily and hydralazine 25 mg 3 times daily for now. We will continue to monitor and if possible will uptitrate. Add spironolactone 12.5 mg daily today as per nephrology recommendations for possible mineralocorticoid type effect given low potassium and elevated bicarb on admission. Hepatitis C: Hepatitis C RNA sent out and pending. Ultrasound abdomen negative for process but consistent with hepatomegaly. Patient most likely require extensive follow-up as an outpatient. Patient counseled in detail. She verbalized understanding. Full code. Renal diet. Heparin 5000 every 12 hourly. Attestations Medical Necessity Statement*: Patient requires further hospitalization for management of sepsis secondary to pyelonephritis, acute kidney injury with creat inine of 4.6 and hypertensive urgency requiring adjustment of antihypertensives. Time Spent in Patient Care: Greater than 35 minutes (>than 50% of time spent in counselling and/or direct pt care on unit) . Coding Level of Care Code Acute Soil Checker for Guillermo Fwd Diagnoses Sepsis A41.9 Pyelonephritis N12 Chlamydia infection A74.9 DENISA (acute kidney injury) N17.9 Hypertensive urgency I16.0 Hypertension I10 Cardiomyopathy I42.9 LVH (left ventricular hypertrophy) I51.7 Hepatitis C B19.20 Hypokalemia E87.6 Methamphetamine abuse F15.10
[2020-09-24] MEDS: spironolactone 25 mg Tablet 12.5 MG PO (09:54)
[2020-09-24] MEDS: azithromycin 250 mg Tablet 1000 MG PO (09:54)
[2020-09-24] MEDS: sodium chloride 0.9% 1,000 ML 75 ML IV ×2 (09:55→23:20)
[2020-09-24 10:10] LABS: Basophils % 0.3 %; Eosinophils # 0.2 10^3/uL (0.0-0.8); Eosinophils % 1.5 %; Hematocrit 24.8 % (37.0-47.0); Hemoglobin 8.1 g/dL (11.5-15.3); Lymphocytes # 1.4 10^3/uL (0.8-4.8); Lymphocytes % 14.1 %; Mean Corpuscular HGB Conc 32.7 g/dL (30.0-36.0); Mean Corpuscular Hemoglobin 30.3 pg (28.0-34.0); Mean Corpuscular Volume 92.9 fL (81-99); Mean Platelet Volume 11.9 fL (7.4-10.4); Monocytes # 0.6 10^3/uL (0.2-0.9); Monocytes % 6.5 %; Neutrophils # 7.48 10^3/uL (1.8-7.7); Neutrophils % 76.9 %; Nucleated Red Blood Cells % 0 %; Platelet Count 113 10^3/cmm (130-400); Red Blood Count 2.67 10^6/uL (4.1-5.3); White Blood Count 9.7 10^3/uL (4.0-10.0)
[2020-09-24 10:30] LABS: Alanine Aminotransferase 28 U/L (0-33); Alkaline Phosphatase 77 IU/L (35-105); Anion Gap 13.8 (5-19); Aspartate Amino Transferase 41 U/L (0-32); Blood Urea Nitrogen 32 mg/dL (6-20); Calcium 8.6 mg/dL (8.5-10.5); Carbon Dioxide 24 mmol/L (22-29); Chloride 97 mmol/L (98-107); Globulin 2.7 g/dL (1.3-4.6); Glomerular Filtration Rate 11.2 mL/min (90-130); Glucose 114 mg/dL (65-115); Osmolality Calculated 282 mOsm/kg (285-295); Sodium 132 mmol/L (136-145); Total Bilirubin 0.5 mg/dL (0.15-1.2); Total Protein 5.7 g/dL (6.6-8.7)
[2020-09-24 10:36] LABS: Potassium 2.8 mmol/L (3.5-5.1)
--- NOTE | 2020-09-24 11:24 | P.PN_ITS ---
Subjective Subjective: Interval history: She feels significantly better today than she did yesterday. The pain is much more manageable. No fever or chills overnight. She is passing 2.2 L of urine. No extremity edema. No uremic symptoms. Of note urine chlamydia is tested positive. Vitals/I&O/Wt Last Vital Signs Temp 97.6 F 09/24/20 11:02 Pulse 94 09/24/20 11:02 Resp 16 09/24/20 11:02 BP 187/100 09/24/20 11:02 Pulse Ox 93 09/24/20 11:02 09/23/20 09/24/20 09/24/20 22:59 06:59 14:59 Intake Total 290 / 560 200 / 200 Output Total 600 / 1300 900 / 900 Balance -310 / -740 -700 / -700 Weight last 48 hrs Weight 104.417 kg Weight 97.522 kg Physical Exam Narrative: EXAM NARRATIVE: Constitutional: Awake, mild distress HEENT: Wet mucosa, no jvp, non icteric Lungs: Bilaterally clear without discernible wheeze, rales in all lung zones CVS: S1 S2, no murmurs Abdo: Soft, BS ok, pain in the right flank Ext 4: Minimal edema, peripheral perfusion with no cyanosis Neurological: Grossly non-focal Data : 09/24/20 09:51 09/24/20 09:51 Micro: Microbiology 09/22/20 10:26 Urine Culture - Preliminary Urine,Clean Catch 09/22/20 23:25 Chlamydia trachomatis (ALEXANDREA) - Final Urine Random Neisseria gonorrhoeae (ALEXANDREA) - Final 09/22/20 13:50 Blood Culture - Preliminary Blood NEGATIVE TO DATE 09/22/20 11:55 Blood Culture - Preliminary Blood NEGATIVE TO DATE 09/22/20 05:25 MRSA Culture - Final Nose A&P Additional A&P Information 1. DENISA Given the historically untreated and malignant hypertension seen on admission, this is the leading differential for the cause of her renal failure Good improvement in creatinine today and robust urine output Avoid usual nephrotoxic medications, Dose medications for GFR less than 15. 2. Hypertension It is noted that she has a low potassium, admission bicarb was also elevated, this would be in keeping with a mineralocorticoid type effect. It is noted that the CT scan did not demonstrate any adrenal adenomas, however, other differentials for this picture include Felix syndrome, dexamethasone remedial hyperaldosteronism etc. Severe renal artery stenosis i.e. from fibromuscular dysplasia may also cause this. Renal Dopplers were attempted however given body habitus they were nondiagnostic. May consider MRI in the next few days when she settles down. In the meantime, agree with up titration of antihypertensive medications. Spironolactone on board today, will up-titrate over next few days 3. UTI Currently diagnosed with pyelonephritis, receiving antibiotics with Zosyn. Cultures currently pending. Chlamydia DNA positive Mgmt per primary team 4. HypoK being replaced; will give 40mEq po today (in addition to the Spironolactone) Thank you for consultation, as always it is a pleasure to follow these patients with you Cristino Crespo MD Nephrology [phone] Patient seen and examined via telemedicine, with the assistance of the bedside RN Attestations Medical Necessity Statement*: elke for DENISA Coding Level of Care Code Acute Sales And Marketing Intern for Guillermo Puente
[2020-09-24] MEDS: potassium chloride ER 20 mEq Tablet 120 MEQ PO (12:11)
[2020-09-24 13:09] LABS: Anti-Double Strand DNA AB <1 IU/mL; Jo-1 Antibody <1.0 NEG AI (<1.0 NEG); SM/RNP Antibodies <1.0 NEG AI (<1.0 NEG); SS-B/LA IGG <1.0 NEG AI (<1.0 NEG); Scleroderma Ab(Scl-70) Ab <1.0 NEG AI (<1.0 NEG); Ss-A/Ro Igg <1.0 NEG AI (<1.0 NEG)
[2020-09-24] MEDS: hyDRALAzine 25 mg Tablet PO ×2 (15:23→20:01)
[2020-09-24] MEDS: carvedilol 6.25 mg Tablet 12.5 MG PO (18:04)
--- NOTE | 2020-09-24 19:22 | PC.NURSE ---
Report to Hortencia STEPHEN
[2020-09-25 00:48] VITALS: BP 186/86; PULSE 86; RESP 18; TEMP 36.8; O2SAT 98
[2020-09-25] MEDS: LORazepam 2 mg/mL INJ 1 mL 1 MG IVP (02:27)
[2020-09-25] MEDS: hyDRALAzine 20 mg/mL INJ 1 mL 10 MG IVP ×4 (02:27→16:36)
[2020-09-25 05:12] VITALS: BP 180/76; PULSE 110; RESP 18; TEMP 36.7; O2SAT 96
[2020-09-25 05:41] LABS: Alanine Aminotransferase 31 U/L (0-33); Alkaline Phosphatase 84 IU/L (35-105); Blood Urea Nitrogen 33 mg/dL (6-20); Calcium 8.8 mg/dL (8.5-10.5); Carbon Dioxide 19 mmol/L (22-29); Chloride 101 mmol/L (98-107); Creatinine Clr Calc Pharmacy 19.8859; Globulin 3.5 g/dL (1.3-4.6); Glomerular Filtration Rate 10.9 mL/min (90-130); Glucose 84 mg/dL (65-115); Osmolality Calculated 282 mOsm/kg (285-295); Sodium 133 mmol/L (136-145); Total Bilirubin 0.9 mg/dL (0.15-1.2); Total Protein 6.5 g/dL (6.6-8.7)
[2020-09-25 05:46] LABS: Anion Gap 17.3 (5-19); Aspartate Amino Transferase 56 U/L (0-32); Potassium 4.3 mmol/L (3.5-5.1)
[2020-09-25] MEDS: piperacillin-tazobactam 3.375 GM in sodium chloride 0.9% (plus) 50 ML IV ×2 (06:00→18:11)
[2020-09-25 08:00] VITALS: BP 180/76; PULSE 110; RESP 18; TEMP 36.7; O2SAT 96
[2020-09-25] MEDS: spironolactone 25 mg Tablet 12.5 MG PO (08:13)
[2020-09-25] MEDS: doxycycline 100 mg Tablet PO ×2 (08:13→18:10)
[2020-09-25] MEDS: sennosides-docusate Tablet 1 TAB PO (08:13)
[2020-09-25] MEDS: hyDRALAzine 25 mg Tablet PO ×4 (08:13→21:03)
[2020-09-25] MEDS: famotidine 20 mg Tablet PO ×2 (08:14→18:10)
[2020-09-25] MEDS: amlodipine 10 mg Tablet PO (08:14)
[2020-09-25] MEDS: carvedilol 6.25 mg Tablet 12.5 MG PO (08:17)
--- NOTE | 2020-09-25 08:20 | PC.NURSE ---
Patient resting in bed with eyes closed, easily awakened, oriented X3, discussed plan of care, patients states, I just want to be left alone. Call light in reach, side rails up X2.
--- NOTE | 2020-09-25 09:27 | P.PN_ITS ---
Subjective Subjective: Interval history: per RN Debo had a panic attack earlier and received xanax. She is presently arousable but very lethargic. Medications: Reviewed: Yes Vitals/I&O/Wt Last Vital Signs Temp 98.0 F 09/25/20 08:00 Pulse 110 H 09/25/20 08:00 Resp 18 09/25/20 08:00 BP 180/76 09/25/20 08:00 Pulse Ox 96 09/25/20 08:00 09/24/20 09/25/20 09/25/20 22:59 06:59 14:59 Intake Total 50 / 500 1000 / 1500 Output Total 100 / 1900 950 / 2850 Balance -50 / -1400 50 / -1350 Weight last 48 hrs Weight 104.78 kg Weight 104.417 kg Physical Exam Skin: COMMON NORMALS: no rashes or lesions noted GENERAL SKIN EXAM: no rashes or lesions noted Data : 09/24/20 09:51 09/25/20 04:37 Other Labs: urine prot/Cr ratio > 7000 mg/g + urine eosinophils Micro: Microbiology 09/22/20 10:26 Urine Culture - Final Urine,Clean Catch US: Radiologist's impression: Right kidney: 11.7 cm x 6.4 cm x 7.5 cm. New since the prior examinations loss of the normal cortical medullary junction. Increasing echogenicity throughout the kidney. No hydronephrosis. Again noted is the cyst in the upper pole of the RIGHT kidney which is probably a parapelvic cyst Left kidney: 10.2 cm x 6.4 cm x 6.1 cm. Increased echogenicity throughout the kidney with poor cortical medullary differentiation. Disc is difficult to visualize due to body habitus. Aorta: Normal. Urinary Bladder: Nondistended. CT Abd/Pel: Radiologist's impression: Adrenal glands: Normal. Right kidney: Very slightly edematous but no obstruction or calcification. Left kidney: Mildly edematous with no obstruction or calcification. Aorta: Normal. Echo: Radiologist's impression: Normal LV size with diminished ejection fraction of 48%. Mild diffuse hypokinesia of the left ventricle. Moderate concentric left renal hypertrophy Grade I/IV diastolic dysfunction (abnormal relaxation filling pattern), normal to mildly elevated filling pressures. Mildly thickened mitral valve. Trace to mild mitral valve regurgitation. There is no pericardial effusion. There are no intracardiac masses. The above features may suggest hypertrophic cardiomyopathy with no significant resting outflow tract obstruction. No similar previous studies are available for comparison. A&P Additional A&P Information Impression: 1. Acute kidney injury with nephrotic range proteinuria and eosinophils seen in urine. Good urine output. Serologic workup unremarkable except Hepatitis C +. She may have Hep C related glomerular disease 2. Malignant hypertension, + amphetamines in urine 3. Questionable pyelonephritis, urine culture no growth 4. Anemia, thrombocytopenia 5. Hypokalemia - resolved Recommendation: Check cryoglobulins and ANCA. Agree with increasing carvedilol. repeat urinalysis. Transfer for renal biopsy. Will begin empiric steroid, prednisone [address] daily[address]iscuss[address] with Dr Tari Lee Medical Necessity Statement*: see above Time Spent in Patient Care: Greater than 35 minutes Coding Level of Care Code Acute Real Estate Branch Manager for Guillermo Puente Exam Problem Focused
[2020-09-25] MEDS: carvedilol 12.5 mg Tablet PO (09:58)
[2020-09-25] MEDS: ALPRAZolam 0.5 mg Tablet PO ×2 (10:15→23:35)
--- NOTE | 2020-09-25 10:16 | PC.NURSE ---
Patient anxious and jumps with slight movement or to voice of this nurse, Dr. Mahmood at bedside, new orders received for xanax and oxygen at 1L NC, see MAR for further details, placed on 1L NC.
[2020-09-25 10:43] VITALS: BP 174/113; PULSE 99; RESP 17; TEMP 36.7; O2SAT 98
[2020-09-25] MEDS: bisacodyl 5 mg Tablet 10 MG PO (11:22)
--- NOTE | 2020-09-25 11:27 | PC.NURSE ---
Patient drowsy after xanax administration, but awakens to voice and touch, falls asleep quickly. No further anxiety noted.
[2020-09-25 12:12] LABS: Basophils # 0.1 10^3/uL (0.0-0.1); Basophils % 0.5 %; Eosinophils # 0.1 10^3/uL (0.0-0.8); Eosinophils % 0.7 %; Hematocrit 25.5 % (37.0-47.0); Hemoglobin 8.2 g/dL (11.5-15.3); Lymphocytes # 1.1 10^3/uL (0.8-4.8); Lymphocytes % 8.8 %; Mean Corpuscular HGB Conc 32.2 g/dL (30.0-36.0); Mean Corpuscular Hemoglobin 30.5 pg (28.0-34.0); Mean Corpuscular Volume 94.8 fL (81-99); Mean Platelet Volume 12.3 fL (7.4-10.4); Monocytes # 0.6 10^3/uL (0.2-0.9); Monocytes % 4.7 %; Neutrophils # 10.84 10^3/uL (1.8-7.7); Neutrophils % 84.4 %; Nucleated Red Blood Cells % 0 %; Platelet Count 139 10^3/cmm (130-400); Red Blood Count 2.69 10^6/uL (4.1-5.3); Red Cell Distribution Width 15.3 % (12.1-15.1); White Blood Count 12.8 10^3/uL (4.0-10.0)
[2020-09-25] MEDS: predniSONE 20 mg Tablet 60 MG PO (12:27)
[2020-09-25] MEDS: heparin 5,000 unit/mL INJ 1 mL 5000 UNIT SUBCUT (15:04)
[2020-09-25 15:23] VITALS: BP 179/95; PULSE 93; RESP 17; TEMP 36.7; O2SAT 93
--- NOTE | 2020-09-25 16:07 | P.TS_ITS ---
Transfer Summary Providers Date of Admission: 09/22/20 13:04 Date of Discharge: 09/25/20 Attending Provider at Admission: Camilo Mahmood MD Attending Provider at Transfer: Camilo Mahmood MD Consults: Tele nephrology Primary Care Provider: Pablo Martinez MD Anticipated Date of Transfer: Anticipated date of transfer: 09/25/20 Receiving Facility & Provider: Receiving Provider: [Dr. Lee] Receiving facility: [facility] ] Diagnoses at Discharge Discharge Diagnosis (1) Sepsis: Status: Acute (2) Pyelonephritis: Status: Acute (3) Chlamydia infection: Status: Acute (4) DENISA (acute kidney injury): Status: Acute (5) Hypertensive urgency: Status: Acute (6) Hypertension: Status: Acute (7) Cardiomyopathy: Status: Acute Permanent problem details: EF- 48% with mod LVH, grade 1 diastolic dysfunction (8) LVH (left ventricular hypertrophy): Status: Acute (9) Hepatitis C: Status: Acute (10) Hypokalemia: Status: Acute (11) Methamphetamine abuse: Status: Chronic Reason for Visit Reason for Visit: ABD pain, Blood in Urine, Headache Hospital Course Hospital Course Debo Little is a 30 year old female with past medical history of hypertension not on any medication, noncompliance, amphetamine abuse who presents to the ER today with right-sided flank pain getting worse for last 2 to 3 weeks, fever on and off for last 1 week, nausea. She states her urine has been getting more and more red, dark and concentrated for last 1 month getting worse for last 1 week. She states she has been having headache which is most likely secondary to her high blood pressures for last 1 to 2 months. Patient states she was diagnosed of high blood pressure when she was 20-year-old but has never taken any medications. She has been taking at least 3 ibuprofen/Tylenol every day for headaches for last 2 weeks. She has not checked her fever at home but does complain of subjective feeling of fever along with diaphoresis and chills. As per her last amphetamine abuse was a week ago and marijuana use was 3 weeks ago. In the ER white count shows 12.7, hemoglobin of 10.7, potassium of 2.2, sodium of 135, creatinine of 4, BUN of 29, AST/ALT of 54/37, UA which was bloody, 1+ leuk esterase, more than 100 WBCs, hCG negative. CT abdomen shows enlarged left ventricle with LVH, no renal obstruction, contracted gallbladder. Urine drug screen is positive for methamphetamines. LAURY profile was negative, complement levels are within normal limits, serology was consistent only with hepatitis C though hepatitis C RNA levels are pending, serum cryoglobulin levels are pending. Echocardiogram was done which showed diminished EF 48% with diffuse gl obal LV hypokinesia, moderate LVH, grade 1 diastolic dysfunction with trace MR. Testing was done which showed no hydronephrosis but did show finding suggestive of acute nephritis without any obstruction. Renal Doppler was done as well but unfortunately renal arteries could not be assessed because of body habitus. Patient was admitted to the hospital for management of pyelonephritis and was started on broad-spectrum antibiotics. Her urine gonorrhea chlamydia was positive for chlamydia for which was treated by 1 g azithromycin 2 she was also started on doxycycline in view of possible PID. Plan is to continue doxycycline for overall 14 days. On admission patient was found to have a new creatinine of 4 which is most likely because of persistent malignant hypertension which has been untreated for many years, NSAID use as an outpatient. Her blood work was also consistent with hepatitis C. Her creatinine remained stable and patient continued to have good urine output. Urinalysis was consulted with elevated eosinophils. As even with hydration patient's creatinine was not improving nephrology suggested patient to have transfer to higher center for possible kidney biopsy for diagnosis of hepatitis C related glomerular disease/glomerulonephritis/membranous nephritis. Patient was started on empiric steroids with prednisone 60 mg daily with first dose on September 25, 2020. During hospitalization patient was found to have malignant hypertension for which she was started on multiple antihypertensives which have been uptitrated regularly and currently she is on Coreg 25 mg twice daily, amlodipine 10 mg daily, hydralazine 25 mg 4 times daily. Given the above concerns patient's transfer was sought to [facility] for further management and diagnosis. Dr. Mar has accepted to take over patient's care and patient has been discharged hemodynamically stable condition. Physical Exam Narrative: EXAM NARRATIVE: General: No acute distress, AO x3, sleepy but wakes up to give appropriate complete answers HEENT: PERRLA, pupils bilaterally equal and reactive Chest: Normal vesicular breath sounds, no added sounds, equal good air entry bilaterally CVS: S1-S2 regular, no murmurs, no tachycardia, S4 gallop, no rubs Abdomen: Soft, tender in right flank, renal angle tenderness on the right side, no organomegaly, bowel sounds present Neuro: No focal deficits, no facial deformity, AO x3, power 5/5 in all limbs TS Data Data Completed and Pending: Completed Studies During Hospitalization Category Date Time Status CT abdomen pelvis w con* [id number] Stat Cat Scan 09/22/20 11:16 Completed CV echo complete* [id number] Routine Ultrasound 09/23/20 14:54 Completed CV renal doppler [id number] Routine Ultrasound 09/23/20 05:00 Completed US abdomen comple te* [id number] Stat Ultrasound 09/22/20 12:20 Completed US renal BI* [id number] Routine Ultrasound 09/23/20 Completed Pending at discharge Category Date Time Status ANCA [Anti-Neutro porsha Cutoplasmic A B] Routine Lab 09/25/20 09:51 Received Blood Culture Sta t Lab 09/22/20 13:50 Results Complete Blood Co unt w/Auto AM LABS Lab 09/26/20 04:00 Ordered Comprehensive Met abolic Panel AM LA BS Lab 09/26/20 04:00 Ordered Creatinine Urine, Random Routine Lab 09/25/20 12:31 Ordered Cryoglobulins Dixon litative Routine Lab 09/25/20 11:56 Received Cryoglobulins Dixon litative Stat Lab 09/23/20 13:11 Received Hepatitis C RNA V iral Load Qnt Stat Lab 09/23/20 13:11 Received Urinalysis and Mi croscopic Stat Lab 09/25/20 12:31 Ordered Urine Protein Ran dom Routine Lab 09/25/20 12:31 Ordered Labs from last 24 hours 09/25/20 09/25/20 09/25/20 11:56 11:56 04:37 WBC 12.8 H RBC 2.69 L Hgb 8.2 L Hct 25.5 L MCV 94.8 MCH 30.5 MCHC 32.2 RDW 15.3 H Plt Count 139 MPV 12.3 H Neut % (Auto) 84.4 Lymph % (Auto) 8.8 [place] % (Auto) 4.7 Eos % (Auto) 0.7 Baso % (Auto) 0.5 Neut # (Auto) 10.84 H Lymph # (Auto) 1.1 [place] # (Auto) 0.6 Eos # (Auto) 0.1 Baso # (Auto) 0.1 Nucleated RBC % (a uto) 0 Nucleated RBCs # 0.0 Sodium 133 L Potassium 4.3 Chloride 101 Carbon Dioxide 19 L Anion Gap 17.3 BUN 33 H Creatinine 4.7 H GFR Calculation 10.9 L Glucose 84 Calculated Osmolal ity 282 L Calcium 8.8 Total Bilirubin 0.9 AST 56 H ALT 31 Alkaline Phosphata se 84 Total Protein 6.5 L Albumin 3.0 L Globulin 3.5 Serum Cryoglobulin s Pending Ref Test Comments 09/24/20 09:51 WBC RBC Hgb Hct MCV MCH MCHC RDW Plt Count MPV Neut % (Auto) Lymph % (Auto) [place] % (Auto) Eos % (Auto) Baso % (Auto) Neut # (Auto) Lymph # (Auto) [place] # (Auto) Eos # (Auto) Baso # (Auto) Nucleated RBC % (a uto) Nucleated RBCs # Sodium Potassium Chloride Carbon Dioxide Anion Gap BUN Creatinine GFR Calculation Glucose Calculated Osmolal ity Calcium Total Bilirubin AST ALT Alkaline Phosphata se Total Protein Albumin Globulin Serum Cryoglobulin s Ref Test Comments Pending Vitals: Last Vital Signs Temp 98.1 F 09/25/20 15:23 Pulse 93 09/25/20 15:23 Resp 17 09/25/20 15:23 BP 179/95 09/25/20 15:23 Pulse Ox 93 09/25/20 15:23 TS Medications Medications Home Medications acetaminophen [Tylenol Extra Strength] 1,000 mg PO PRN 09/22/20 [History Confirmed 09/22/20] Active Medications Alprazolam (Alprazolam 0.5 Mg Tablet) 0.5 mg PO BID PRN PRN Reason: ANXIETY Last Admin: 09/25/20 10:15 Dose: 0.5 mg Documented by: Amlodipine Besylate (Amlodipine 10 Mg Tablet) 10 mg PO DAILY GENNY Last Admin: 09/25/20 08:14 Dose: 10 mg Documented by: Bisacodyl (Bisacodyl 5 Mg Tablet) 10 mg PO DAILY PRN PRN Reason: CONSTIPATION Last Admin: 09/25/20 11:22 Dose: 10 mg Documented by: Carvedilol (Carvedilol 25 Mg Tablet) 25 mg PO BID [facility] Doxycycline Monohydrate (Doxycycline 100 Mg Tablet) 100 mg PO BID GENNY; Protocol Last Admin: 09/25/20 08:13 Dose: 100 mg Documented by: Famotidine (Famotidine 20 Mg Tablet) 20 mg PO BID [facility] Last Admin: 09/25/20 08:14 Dose: 20 mg Documented by: Glycerin (Glycerin Adult Supp) 1 each OK DAILY PRN PRN Reason: CONSTIPATION Heparin Sodium (Beef Lung) (Heparin 5,000 Unit/Ml Inj 1 Ml) 5,000 unit SUBCUT Q12H [facility] Last Admin: 09/25/20 15:04 Dose: 5,000 unit Documented by: Hydralazine HCl (Hydralazine 20 Mg/Ml Inj 1 Ml) 10 mg IVP Q4H PRN PRN Reason: SBP more than 150 mmhg Last Admin: 09/25/20 11:22 Dose: 10 mg Documented by: Hydralazine HCl (Hydralazine 25 Mg Tablet) 25 mg PO QID [facility] Last Admin: 09/25/20 12:39 Dose: 25 mg Documented by: Piperacillin Sod/Tazobactam (Sod 3.375 gm/ Sodium Chloride) 50 mls @ 12.5 mls/hr IV Q12H [facility]; Protocol Last Admin: 09/25/20 06:00 Dose: 12.5 mls/hr Documented by: Acetaminophen (Ofirmev) 1,000 mg in 100 mls @ 400 mls/hr IV Q8H PRN PRN Reason: FEVER Lactulose (Lactulose Oral Liq 20 Gm/30 Ml Udc) 10 gm PO DAILY PRN PRN Reason: CONSTIPA Last Admin: 09/22/20 19:09 Dose: 10 gm Documented by: Ondansetron HCl (Ondansetron 2 Mg/Ml Sdv 2 Ml) 4 mg IVP Q8H PRN PRN Reason: vomiting, or N/V if npo Prednisone (Prednisone 20 Mg Tablet) 60 mg PO DAILY [facility] Last Admin: 09/25/20 12:27 Dose: 60 mg Documented by: Senna/Docusate Sodium (Sennosides-Docusate Tablet) 1 tab PO DAILY [facility] Last Admin: 09/25/20 08:13 Dose: 1 tab Documented by: Tramadol HCl (Tramadol 50 Mg Tablet) 50 mg PO Q8H PRN PRN Reason: MODERATE PAIN Last Admin: 09/24/20 20:03 Dose: 50 mg Documented by: Discharge Plan Discharge Patient Disposition: Home Condition: Stable Prescriptions: No Action Tylenol Extra Strength 500 mg Tablet 1,000 mg PO PRN RF: 0 Discharge Orders: Transfer Out of Facility (Order); Ordered 09/25/20 Ordered By: Camilo Mahmood Referrals: Pablo Martinez MD [Primary Care Provider] - Transfer Attestations Time Spent in Transfer Care*: greater than 30 min Specific Discharge Activities: Specific discharge activities: educating patient, discussing with pcp/other providers, discussing with case supervisor/social workers/dc planners, documenting/other paperwork and evaluating patient/reviewing data Status at Transfer: Cognitive status at transfer: cognitively intact , Behavioral status at transfer: cooperative , Functional status at transfer: independent ambulation Overall status at transfer: patient is not back to baseline Quality Metrics Clinical Quality Measures: During this hospital stay, did patient experience: None Coding Level of Care Code Acute Automatic Shirring Machine Operator for Chg Fwd Diagnoses Sepsis A41.9 Pyelonephritis N12 Chlamydia infection A74.9 DENISA (acute kidney injury) N17.9 Hypertensive urgency I16.0 Hypertension I10 Cardiomyopathy I42.9 LVH (left ventricular hypertrophy) I51.7 Hepatitis C B19.20 Hypokalemia E87.6 Methamphetamine abuse F15.10
--- NOTE | 2020-09-25 16:47 | PC.NURSE ---
Addendum entered by Meg Winn RN 09/25/20 16:51: patient no longer on oxygen, oxygen saturation 93% on RA. Original Note: Patient resting in bed, denies pain or needs, awaiting bed availability at [facility] for pending transfer, call light in reach, side rails up X2.
--- NOTE | 2020-09-25 18:00 | PC.NURSE ---
Patient distraught and irritable over food delivered for supper, kitchen unable to make chicken for patient to have a chicken salad as requested earlier, patient yelling pacing in the room and slamming the bathroom door, code 10 called, cyber security systems engineer and several nurses present, after getting an order from Dr. Mahmood for nicotine patch and ativan patient agreed to stay in hospital for treatment and calmed, new tray provided, patient sitting on side of bed eating supper, no further agitation at this time.
[2020-09-25] MEDS: LORazepam 2 mg/mL INJ 1 mL (18:10)
[2020-09-25] MEDS: carvedilol 25 mg Tablet PO (18:10)
[2020-09-25] MEDS: nicotine 21 mg Patch 1 PATCH TRANSDERMA (18:10)
[2020-09-25 20:00] VITALS: BP 180/78; PULSE 95; RESP 18; TEMP 36.8; O2SAT 95
[2020-09-26] VITALS (9 sets, daily range): BP systolic 170–192; BP diastolic 83–105; PULSE 82–100; RESP 18–19; TEMP 36.4–36.9; O2SAT 93–99; BMI 42.8
[2020-09-26] MEDS: hyDRALAzine 20 mg/mL INJ 1 mL 10 MG IVP (00:53)
[2020-09-26] MEDS: TRAMadol 50 mg Tablet PO ×2 (03:51→14:13)
[2020-09-26] MEDS: heparin 5,000 unit/mL INJ 1 mL 5000 UNIT SUBCUT ×2 (03:57→17:53)
[2020-09-26 05:04] LABS: Basophils % 0.2 %; Hematocrit 24.4 % (37.0-47.0); Hemoglobin 7.8 g/dL (11.5-15.3); Lymphocytes # 0.8 10^3/uL (0.8-4.8); Lymphocytes % 6.8 %; Mean Corpuscular Hemoglobin 30.4 pg (28.0-34.0); Mean Corpuscular Volume 94.9 fL (81-99); Mean Platelet Volume 12.2 fL (7.4-10.4); Monocytes # 0.4 10^3/uL (0.2-0.9); Monocytes % 3.5 %; Neutrophils # 10.08 10^3/uL (1.8-7.7); Neutrophils % 88.3 %; Nucleated Red Blood Cells % 0 %; Platelet Count 159 10^3/cmm (130-400); Red Blood Count 2.57 10^6/uL (4.1-5.3); Red Cell Distribution Width 15.1 % (12.1-15.1); White Blood Count 11.4 10^3/uL (4.0-10.0)
[2020-09-26 05:31] LABS: Alanine Aminotransferase 26 U/L (0-33); Albumin Level 3.1 g/dL (3.5-5.2); Alkaline Phosphatase 81 IU/L (35-105); Anion Gap 15.6 (5-19); Aspartate Amino Transferase 33 U/L (0-32); Blood Urea Nitrogen 38 mg/dL (6-20); Carbon Dioxide 20 mmol/L (22-29); Chloride 100 mmol/L (98-107); Globulin 3.2 g/dL (1.3-4.6); Glomerular Filtration Rate 8.7 mL/min (90-130); Glucose 146 mg/dL (65-115); Osmolality Calculated 286 mOsm/kg (285-295); Potassium 3.6 mmol/L (3.5-5.1); Sodium 132 mmol/L (136-145); Total Bilirubin 0.8 mg/dL (0.15-1.2); Total Protein 6.3 g/dL (6.6-8.7)
[2020-09-26] MEDS: piperacillin-tazobactam 3.375 GM in sodium chloride 0.9% (plus) 50 ML IV (08:40)
[2020-09-26] MEDS: famotidine 20 mg Tablet PO ×2 (08:45→17:53)
[2020-09-26] MEDS: hyDRALAzine 25 mg Tablet PO ×3 (08:45→17:53)
[2020-09-26] MEDS: doxycycline 100 mg Tablet PO ×2 (08:46→17:53)
[2020-09-26] MEDS: carvedilol 25 mg Tablet PO ×2 (08:46→17:55)
[2020-09-26] MEDS: sennosides-docusate Tablet 1 TAB PO (08:46)
[2020-09-26] MEDS: amlodipine 10 mg Tablet PO (08:46)
[2020-09-26] MEDS: predniSONE 20 mg Tablet 60 MG PO (08:46)
[2020-09-26] MEDS: nicotine 21 mg Patch 1 PATCH TRANSDERMA (08:46)
--- NOTE | 2020-09-26 09:59 | P.PN_ITS ---
Subjective Subjective: Interval history: No acute events overnight. No agitation or confusion overnight. On examination patient complaining of mild abdominal pain. Denies any nausea, vomiting, headache. Vitals noted. Continues to remain hypotensive even though antihypertensives have been uptitrated. Labs noted. Transfer was sought yesterday to [facility] for possible renal biopsy and furt her management. Patient has been accepted by Dr. Mar though we are awaiting bed assignment. Vitals/I&O/Wt Last Vital Signs Temp 97.6 F 09/26/20 07:36 Pulse 95 09/26/20 07:36 Resp 18 09/26/20 07:36 BP 189/105 09/26/20 07:36 Pulse Ox 99 09/26/20 07:36 09/25/20 09/26/20 09/26/20 22:59 06:59 14:59 Intake Total 50 / 340 800 / 1140 Output Total 800 / 1800 845 / 2645 Balance -750 / -1460 -45 / -1505 Weight last 48 hrs Weight 106.231 kg Weight 104.78 kg Physical Exam Narrative: EXAM NARRATIVE: General: No acute distress, AO x3, sleepy but wakes up to give appropriate complete answers HEENT: PERRLA, pupils bilaterally equal and reactive Chest: Normal vesicular breath sounds, no added sounds, equal good air entry bilaterally CVS: S1-S2 regular, no murmurs, no tachycardia, S4 gallop, no rubs Abdomen: Soft, tender in right flank, renal angle tenderness on the right side, no organomegaly, bowel sounds present Neuro: No focal deficits, no facial deformity, AO x3, power 5/5 in all limbs Data : 09/26/20 04:07 09/26/20 04:07 Micro: Microbiology 09/22/20 10:26 Urine Culture - Final Urine,Clean Catch A&P Assessment and plan (1) Sepsis: Status: Acute (2) Pyelonephritis: Status: Acute (3) Chlamydia infection: Status: Acute (4) DENISA (acute kidney injury): Status: Acute (5) Hypertensive urgency: Status: Acute (6) Hypertension: Status: Acute (7) Cardiomyopathy: Status: Acute (8) LVH (left ventricular hypertrophy): Status: Acute (9) Hepatitis C: Status: Acute (10) Hypokalemia: Status: Acute (11) Methamphetamine abuse: Status: Chronic Additional A&P Information 30-year-old female who is noncompliant, possible history of hypertension since age of 20 presents to the hospital with right-sided flank pain, fever, decreased urine output for last 3 weeks found to have sepsis due to pyelonephritis, acute kidney injury. Sepsis: Evident from tachycardia, leukocytosis, fever. UA consistent with UTI and CT abdomen consistent with possible inflammation around bilateral kidney suggestive of pyelonephritis. Pyelonephritis: Urine culture, blood cultures remain negative. De-escalate from Zosyn to ceftriaxone. Will repeat urinalysis. For possible chlamydia PID continue with doxycycline 100 mg twice daily for overall 14-day course. Patient has already received azithromycin 1 g one-time dose. Discussed with patient in detail needing for her sexual partner to be treated as well. She states she does not have any sexual partner at present and her is in jail. HIV negative, hepatitis panel positive for hepatitis C. DENISA: Creatinine worsening today. Urine output appropriate for now. Fena?1.3 suggestive of intrinsic disease most likely secondary to chronic u ncontrolled hypertension, chronic use of NSAIDs. Nephrology recommendations appreciated. Complement levels, LAURY profile negative. Cryoglobulin levels pending. As per nephrology recommendations seeking transfer to higher center for possible renal biopsy. Patient is agreeable. Patient has been accepted at [facility] and we are awaiting bed assignment. Hypertensive urgency/hypertension: Blood pressure continues to remain elevated. Goal blood pressure less than 140/90 mmHg. Echocardiogram consistent with cardiomyopathy. Shows EF of 48% with global LV hypokinesia, moderate LVH, grade 1 diastolic dysfunction LVOT velocity of 1.26 m/s though Valsalva maneuver was not performed. Uptitrate medications further. For now continue with amlodipine 10 mg daily, Coreg 25 mg twice daily, hydralazine 25 mg 3 times a day. We will start patient on clonidine 0.1 mg twice daily. It is quite possible that patient blood pressures are elevated along with tachycardia as she is withdrawing from amphetamines and she uses amphetamines more frequently than she is reporting. For now we will start patient on Ativan 0.5 mg twice daily. Hepatitis C: Hepatitis C RNA sent out and pending. Ultrasound abdomen negative for process but consistent with hepatomegaly. Patient most likely require extensive follow-up as an outpatient. Patient counseled in detail. She verbalized understanding. Full code. Renal diet. Heparin 5000 every 12 hourly. Attestations Medical Necessity Statement*: Patient requires further hospitalization for management acute kidney injury with creatinine of 5.7, pyelonephritis, possible chlamydia PID Time Spent in Patient Care: Greater than 35 minutes (>than 50% of time spent in counselling and/or direct pt care on unit) . Coding Level of Care Code Acute Water Well Driller for [facility] Fwd Diagnoses Sepsis A41.9 Pyelonephritis N12 Chlamydia infection A74.9 DENISA (acute kidney injury) N17.9 Hypertensive urgency I16.0 Hypertension I10 Cardiomyopathy I42.9 LVH (left ventricular hypertrophy) I51.7 Hepatitis C B19.20 Hypokalemia E87.6 Methamphetamine abuse F15.10
[2020-09-26] MEDS: LORazepam 0.5 mg Tablet PO (11:29)
[2020-09-26] MEDS: cloNIDine 0.1 mg Tablet PO ×2 (11:29→17:53)
--- NOTE | 2020-09-26 12:22 | PC.CHAP ---
Pastoral Care Encounter/Spiritual Assessment Type of Contact [] Declined lower in supervisor visit [] Patient/Family/Request visit [] Outpatient visit [xx] Follow-up visit [] Physician referral [] Code/Alert [] Routine visit [] Staff referral [] Actively dying [xx] Patient sleeping [] Family support [] [] Out of room [] Palliative care [] [] Receiving care in room [] Pre-surgical visit [] Trauma [xx] Long length of stay [] ICU visit [] Other: Relational/Emotional Strength [] Patient feels connected with others/family/visitors/staff [] Distress [] Loneliness/isolation [] Abandonment Spirituality of Patient [] Person of Edith [] Attends Holiness of their Edith [] Believes in Prayer [] Reads Bible or Mormonism materials [] There are Spiritual issues to be addressed Court Deputy Interventions [] Prayer [] Active listening [] Non-anxious presence [] Spiritual/emotional support [] Crisis/trauma care [] Spiritual counseling [] Bereavement support [] Provided bereavement packet [] Provided Bible/devotional materials [] Provided toy/stuffed animal, coloring book to patient or family member [] Provided Communion [] Anointing/[place] [] Salvation [] Completed spiritual assessment [] Other: Impact on Illness or Injury [] Angry [] Fearful [] Anxious [] Often cries [] Exhaustion [] Unable to work [] Unable to attend yarsani [] Unable to walk/stand [] Unable to read [] Unable to drive [] Unable to eat/drink [] Unable to sleep [] Unable to be with family [] Patient intubated [] Other: Summary Follow up visit not completed as patient sedated. She has been in [facility] for 4 days with no lower in supervisor visit. Try again later. Time spent with patient
--- NOTE | 2020-09-26 13:29 | PM.PN ---
Subjective Subjective: Interval history: Complains of right sided abdomnal pain starting last evening. Reports normal BM today. Urine not resulted by lab from yesterday. Medications: Reviewed: Yes Vitals/I&O/Wt Last Vital Signs Temp 97.6 F 09/26/20 11:37 Pulse 92 09/26/20 11:37 Resp 18 09/26/20 11:37 BP 190/100 09/26/20 11:37 Pulse Ox 95 09/26/20 11:37 09/25/20 09/26/20 09/26/20 22:59 06:59 14:59 Intake Total 50 / 340 800 / 1140 360 / 360 Output Total 800 / 1800 845 / 2645 200 / 200 Balance -750 / -1460 -45 / -1505 160 / 160 Weight last 48 hrs Weight 106.231 kg Weight 104.78 kg Data : 09/26/20 04:07 09/26/20 04:07 Micro: Microbiology 09/22/20 10:26 Urine Culture - Final Urine,Clean Catch A&P Additional A&P Information Impression: 1. Acute kidney injury with nephrotic range proteinuria and eosinophils seen in urine. Good urine output. Serologic workup unremarkable except Hepatitis C +. She may have Hep C related glomerular disease. Prednisone 60 mg daily started yesterday 2. Malignant hypertension, + amphetamines in urine 3. Questionable pyelonephritis, urine culture no growth 4. Anemia Recommendation: Agree with adding hydralazine. She is being transfered to another hospital this afternoon. Possible renal biopsy. I told Debo she may also require dialysis. Attestations Medical Necessity Statement*: Awaiting hospital transfer Time Spent in Patient Care: 16 - 35 minutes Coding Level of Care Code Acute Tie Mill Operator for Guillermo Puente
[2020-09-26] MEDS: cefTRIAXone 1,000 MG in sodium chloride 0.9% (plus) 50 ML 100 MG IV (14:13)
[2020-09-26 16:27] LABS: Creatinine Urine, Random 37 mg/dL (28-217)
[2020-09-26 16:37] LABS: Urine Protein Random 92 mg/dL
[2020-09-26 17:42] LABS: Protein Urine 1+ (Negative); Specific Gravity, Urine 1.005 (1.005-1.030); Urine Appearance Hazy (CLEAR); Urine Color Yellow (Yellow); pH Urine 7 (5-7)
[2020-09-26 17:43] LABS: Bilirubin Urine Neg (Negative); Blood Urine 3+ (Negative); Glucose Urine UA Norm (Normal); Ketones Urine Negative (Negative); Nitrate Urine Negative (Negative)
[2020-09-26 17:44] LABS: Leukocyte Esterase Urine Trace (Negative); Urobilinogen Urine Norm (Negative)
[2020-09-26 17:48] LABS: Add Urine Culture? Yes; Bacteria Urine 2+ /hpf; RBC Urine 80-100 /hpf (0-2)
[2020-09-26] MEDS: ALPRAZolam 0.5 mg Tablet PO (17:53)
[2020-09-26] MEDS: HYDROmorphone 1 mg/mL INJ 1 mL 0.5 MG IVP (17:54)
[2020-09-30 20:39] LABS: Cryoglobulins Qualitative None Detected (None Detected)
[2020-10-01 12:12] LABS: ANCA Interp Negative (Negative)
[2020-10-02 04:22] LABS: Cryoglobulins Qualitative None Detected (None Detected)
== END 2020-09-26 18:15 | disposition short-term general hospital (02) | DRG 871 ==
LOC: ER 13:07 → MEDSURG 13:15
PROVIDERS: Internal Medicine; Internal Medicine Nephrology; Admitting Provider Student in an Organized Health Care Education/Training Program; Emergency Provider Family Medicine; PCP Family Medicine; Visit Provider Student in an Organized Health Care Education/Training Program
DX: A41.9 Sepsis, unspecified organism (principal); N00.9 Acute nephritic syndrome with unspecified morphologic changes; N17.9 Acute kidney failure, unspecified; N39.0 Urinary tract infection, site not specified; B17.10 Acute hepatitis C without hepatic coma; I42.9 Cardiomyopathy, unspecified; I10 Essential (primary) hypertension; Z91.14 Patient's other noncompliance with medication regimen; F15.10 Other stimulant abuse, uncomplicated; F12.90 Cannabis use, unspecified, uncomplicated; I51.7 Cardiomegaly; E87.6 Hypokalemia; I16.0 Hypertensive urgency; F17.210 Nicotine dependence, cigarettes, uncomplicated; A74.9 Chlamydial infection, unspecified; I95.9 Hypotension, unspecified; Z79.1 Long term (current) use of non-steroidal anti-inflammatories (NSAID)
CPT/HCPCS: 12345; 36415; 74177; 76700; 76770; 80053; 80306; 81001; 81025; 82436; 82550; 82570; 82575; 82595; 83036; 83516; 83540; 83550; 83605; 83735; 84100; 84133; 84145; 84156; 84300; 84443; 85025; 85999; 86160; 86225; 86235; 86705; 86706; 86709; 86803; 87040; 87086; 87340; 87491; 87522; 87591; 87641; 87806; 93306; 93975; 94664; 96372; 96375; 99283; J0360; J0696; J1170; J1644; J1885; J2060; J2270; J2405; J2543; J3480; J3490; J7030; J7512; Q0144; Q3014; Q9967

== ENCOUNTER 2021-05-08 13:00 | Inpatient (IN) | payer MEDICARE, MEDICAID, SELFPAY ==
[2021-05-08 14:11] VITALS: BP 136/74; PULSE 85; RESP 16; TEMP 36.7; O2SAT 98; BMI 34.7
--- NOTE | 2021-05-08 15:21 | XRR_ITS ---
PROCEDURE INFORMATION: Exam: XR Chest Exam date and time: 05/08/2021 3:21 PM Age: 30 years old Clinical indication: Fever; Prior surgery; Surgery type: Port TECHNIQUE: Imaging protocol: XR of the chest. Views: 1 view. COMPARISON: CT abdomen pelvis w con* [id number] 09/22/2020 11:22 AM FINDINGS: Tubes, catheters and devices: Right central line terminates within the proximal right atrium. Lungs: Peripheral opacity in the left lung base. Pleural spaces: Unremarkable. No pleural effusion. No pneumothorax. Heart/Mediastinum: Unremarkable. No cardiomegaly. Bones/joints: Unremarkable. XR/XR chest 1V portable [id number] IMPRESSION: Peripheral opacity in the left lung base, developing infection is not excluded.
--- NOTE | 2021-05-08 15:25 | ED_ITS ---
HPI - General Adult General: Chief complaint: General Medical Stated complaint: PROBLEMS WITH PORT Time Seen by Provider: 05/08/21 15:04 Source: patient, RN notes reviewed and old records reviewed Mode of arrival: ambulatory Limitations: no limitations History of Present Illness: HPI narrative: Patient is a 30-year-old female who states that she was on dialysis until about a month ago. She states that no one has flushed her port since then and the dressing had not been changed. She states that for about 2 weeks that she has been running a fever every 3 to 4 days, and she reports fatigue, chills, body aches. She was told that she needed to come to the emergency department for evaluation of infection of the port. Patient appears drowsy but is able to answer all my questions appropriately. Onset (ago): week(s) (2) Severity: moderate Associated symptoms: Reports fevers/chills, malaise and weakness; Deny chest pain, confusion, cough, diaphoresis, decreased appetite, dyspnea, headache(s), nausea, rash, palpitations, seizures, short of breath, syncope or vomiting Treatments prior to arrival: none Review of Systems General: Reports: 10 or more systems reviewed and unremarkable except in HPI and below Const: Reports: malaise; Denies: diaphoresis Card: Denies: chest pain, palpitations or syncope Resp: Denies: dyspnea GI: Denies: nausea or vomiting Skin/Breast: Denies: rash Neuro: Denies: headache(s) or confusion PFS ED PFSH: Medical History (Updated 05/08/21 @ 22:57 by Valentino Johnson MD, [facility]) Hypertension Methamphetamine abuse Substance abuse Surgical History (Updated 05/08/21 @ 21:50 by Neeraj Hernandez MD) S/P cholecystectomy Status post insertion of hemodialysis catheter Family History Other CAD (coronary artery disease) Hypertension Social History Smoking and tobacco status: current every day smoker cigarettes Packs smoked per day: 0.5 Alcohol intake: never Substance/Drug Use: unknown Other details last substance use: Reports of prior methamphetamine abuse per prior documentation. Curr zhang Household members: family and other Details: Lives with mother Housing: House Marital status: Single Current occupational status: unemployed Current gender identity: Female Female Reproductive History: Date of last menstrual period: 09/05/20 Physical Exam Const: COMMON NORMALS: no acute distress, average body habitus, patient oriented x3, no limitations, healthy appearing, alert and well nourished HENMT: COMMON NORMALS: normocephalic, atraumatic and moist oral mucous membranes HEAD & SCALP: normocephalic and atraumatic Eye: COMMON NORMALS: Equal, round and reactive pupils present, EOMs intact bilaterally, conjunctivae normal and no scleral icterus CONJUNCTIVA: Yes conjunctivae normal PUPIL: Yes Equal, round and reactive pupils present Neck/C-Spine: COMMON NORMALS: full ROM, supple, no meningeal signs, no JVD and No carotid bruits Chest: COMMONS NORMALS: normal inspection of the chest and normal palpation of entire chest wall OTHER: Dialysis catheter on the right upper chest wall, skin not erythematous, no drainage noted from it. No obvious infection signs. Resp: COMMON NORMALS: normal respiratory effort, No retractions, No use of accessory muscles, clear to auscultation bilaterally and percussion normal AUSCULTATION: clear to auscultation bilaterally PERCUSSION: percussion normal Cardio: COMMON NORMALS: no JVD, regular rate, regular rhythm, S1 normal heart sound present, S2 normal heart sound present, No gallops present (Cardio), No clicks present (Cardio), No murmurs present (Cardio), No rub (Cardio) and Peripheral pulses 2+ throughout RATE: regular rate RHYTHM: regular rhythm HEART SOUNDS: S1 normal heart sound present and S2 normal heart sound present PERIPHERAL PULSES: Peripheral pulses 2+ throughout GI: COMMON NORMALS: Normal to inspection, nondistended, normoactive bowel sounds present, Soft to palpation, non-tender, No hepatosplenomegaly present, no masses and no bruits PALPATION: Yes Soft to palpation and Yes No hepatosplenomegaly present Extremity: COMMON NORMALS: normal to inspection, full ROM, capillary refill normal, no calf tenderness and no pedal edema Neuro: COMMON NORMALS: patient oriented x3 SENSORIUM/ORIENTATION: Yes alert MENINGEAL SIGNS: Yes no meningeal signs Course ED course: 1526: Discussed this patient with Dr. Shoemaker, candle making supervisor from the dialysis clinic who sent her to the emergency department. I wanted to see what his concerns were so that I can address them properly. He states that the patient was on dialysis from September 2020 to about March 2021 and her creatinine came down to about 2.5. There was no much fluid overload so at that time he decided to hold dialysis. The plan was for her dialysis port to be taken out but apparently the surgeons tried to contact her but they were unable to reach her and her voicemail was not set up so she never had the port removed. She was at the clinic today to have her labs checked to see what her renal function was and in the clinic her blood pressure was 204/130 and she reported to him that she had been running fevers of up to 104 for a few weeks. He was concerned that she may have bacteremia from the port as he has not been cleaned and the dressing had not been changed in about a month. This is why he sent her to the emergency department to be evaluated. Consultations: Consultation #1: Discussed the patient with Dr. Carter, hospitalist and he kindly accepted the patient to his service. Time: 17:02 Consultation #2: Discussed the patient with Dr. Hernandez, general surgeon. He will evaluate the patient and remove her dialysis catheter while she is in the hospital. Time: 17:11 Vital Signs: Vital signs: Vital Signs Temperature 98.6 F 05/08/21 18:38 Pulse Rate 96 05/08/21 18:38 Respiratory Rate 18 05/08/21 18:38 Blood Pressure 178/104 05/08/21 18:38 Pulse Oximetry 98 05/08/21 18:38 MDM - General Adult MDM Narrative: Medical decision making narrative: 30-year-old female with a history of drug-induced psychotic behavior and acute renal failure requiring dialysis. She was on dialysis for about 6 months and creatinine stabilized at about 2.5. She has not had dialysis for about a month. When she went to the candle making supervisor office today for lab work to see if her renal function is stabilizing or improving she was significantly hypertensive and she had complained about frequent episodes of fever in the last 2 weeks. She had not had the dialysis catheter removed because they could not reach the patient and so the appointment could not be scheduled. She is at risk for bacteremia from an infection of the dialysis catheter. I also have concerns that the patient may have been using the dialysis catheter to inject methamphetamines, because of this she is being covered with broad- spectrum antibiotics-cefepime and vancomycin. She is admitted to the hospital for further evaluation and management. Blood cultures were drawn. Vital signs stable throughout her ED stay. Medical Records: Attestation: I reviewed the patient's medical records. Lab Data: Attestation: I reviewed the patient's lab results. Labs: Lab Results 05/08/21 05/08/21 05/08/21 Range/Units 16:25 16:25 16:25 WBC (4.0-10.0) 10^3/ uL RBC (4.1-5.3) 10^6/u L Hgb (11.5-15.3) g/dL Hct (37.0-47.0) % MCV (81-99) fL MCH (28.0-34.0) pg MCHC (30.0-36.0) g/dL RDW (12.1-15.1) % Plt Count (130-400) 10^3/c mm MPV (7.4-10.4) fL Neut % (Auto) % Lymph % (Auto) % [place] % (Auto) % Eos % (Auto) % Baso % (Auto) % Neut # (Auto) (1.8-7.7) 10^3/u L Lymph # (Auto) (0.8-4.8) 10^3/u L [place] # (Auto) (0.2-0.9) 10^3/u L Eos # (Auto) (0.0-0.8) 10^3/u L Baso # (Auto) (0.0-0.1) 10^3/u L Nucleated RBC % (a uto) % Nucleated RBCs # /100WBC Sodium (136-145) mmol/L Potassium (3.5-5.1) mmol/L Chloride (98-107) mmol/L Carbon Dioxide (22-29) mmol/L Anion Gap (5-19) BUN (6-20) mg/dL Creatinine (0.5-0.9) mg/dL GFR Calculation (90-130) mL/min Glucose (65-115) mg/dL Calculated Osmolal ity (285-295) mOsm/k g Lactate (0.5-2.2) mmol/L Calcium (8.5-10.5) mg/dL Total Bilirubin (0.15-1.2) mg/dL AST (0-32) U/L ALT (0-33) U/L Alkaline Phosphata se (35-105) IU/L Creatine Kinase (26-192) U/L C-Reactive Protein (0.0-4.9) mg/L Total Protein (6.6-8.7) g/dL Albumin (3.5-5.2) g/dL Globulin (1.3-4.6) g/dL Procalcitonin (0-0.5) ng/mL HCG, Qual Negative (Negative) Urine Color Yellow (Yellow) Urine Appearance Sl hazy (CLEAR) Urine pH 6.5 (5-7) Ur Specific Gravit y 1.010 (1.005-1.030) Urine Protein 1+ H (Negative) Urine Glucose (UA) Norm (Normal) Urine Ketones Negative (Negative) Urine Blood Neg (Negative) Urine Nitrate Negative (Negative) Urine Bilirubin Neg (Negative) Urine Urobilinogen Norm (Negative) mg/dL Ur Leukocyte Maddie ase Negative (Negative) Urine RBC None (0-2) /hpf Urine WBC 5-10 H (0-5) /hpf Ur Squamous Epith Cells 15-25 H (0-5) /hpf Amorphous Sediment Not Reportable Urine Bacteria 4+ H (NONE) /hpf Urine Opiates Scre en Negative (Negative) ng/mL Ur Barbiturates Sc reen Negative (Negative) ng/mL Ur Phencyclidine S crn Negative (Negative) ng/mL Ur Amphetamines Sc reen Positive H (Negative) ng/mL U Benzodiazepines Scrn Negative (Negative) ng/mL Urine Cocaine Scre en Negative (Negative) ng/mL U Marijuana (THC) Screen Negative (Negative) ng/mL Influenza Type A A g (Negative) Influenza Type B A g (Negative) SARS-CoV-2 Ag (Rap id) (Negative) 05/08/21 05/08/21 05/08/21 Range/Units 16:35 16:35 16:35 WBC 8.4 (4.0-10.0) 10^3/ uL RBC 3.83 L (4.1-5.3) 10^6/u L Hgb 11.6 (11.5-15.3) g/dL Hct 36.2 L (37.0-47.0) % MCV 94.5 (81-99) fL MCH 30.3 (28.0-34.0) pg MCHC 32.0 (30.0-36.0) g/dL RDW 13.2 (12.1-15.1) % Plt Count 249 (130-400) 10^3/c mm MPV 10.0 (7.4-10.4) fL Neut % (Auto) 72.7 % Lymph % (Auto) 15.2 % [place] % (Auto) 9.0 % Eos % (Auto) 1.5 % Baso % (Auto) 0.2 % Neut # (Auto) 6.10 (1.8-7.7) 10^3/u L Lymph # (Auto) 1.3 (0.8-4.8) 10^3/u L [place] # (Auto) 0.8 (0.2-0.9) 10^3/u L Eos # (Auto) 0.1 (0.0-0.8) 10^3/u L Baso # (Auto) 0.0 (0.0-0.1) 10^3/u L Nucleated RBC % (a uto) 0 % Nucleated RBCs # 0.0 /100WBC Sodium 138 (136-145) mmol/L Potassium 4.4 (3.5-5.1) mmol/L Chloride 105 (98-107) mmol/L Carbon Dioxide 22 (22-29) mmol/L Anion Gap 15.4 (5-19) BUN 31 H (6-20) mg/dL Creatinine 2.5 H (0.5-0.9) mg/dL GFR Calculation 22.6 L (90-130) mL/min Glucose 89 (65-115) mg/dL Calculated Osmolal ity 292 (285-295) mOsm/k g Lactate 0.5 (0.5-2.2) mmol/L Calcium 8.6 (8.5-10.5) mg/dL Total Bilirubin 0.2 (0.15-1.2) mg/dL AST 15 (0-32) U/L ALT 12 (0-33) U/L Alkaline Phosphata se 98 (35-105) IU/L Creatine Kinase 27 (26-192) U/L C-Reactive Protein 20.6 H (0.0-4.9) mg/L Total Protein 7.6 (6.6-8.7) g/dL Albumin 3.5 (3.5-5.2) g/dL Globulin 4.1 (1.3-4.6) g/dL Procalcitonin 0.81 H (0-0.5) ng/mL HCG, Qual (Negative) Urine Color (Yellow) Urine Appearance (CLEAR) Urine pH (5-7) Ur Specific Gravit y (1.005-1.030) Urine Protein (Negative) Urine Glucose (UA) (Normal) Urine Ketones (Negative) Urine Blood (Negative) Urine Nitrate (Negative) Urine Bilirubin (Negative) Urine Urobilinogen (Negative) mg/dL Ur Leukocyte Maddie ase (Negative) Urine RBC (0-2) /hpf Urine WBC (0-5) /hpf Ur Squamous Epith Cells (0-5) /hpf Amorphous Sediment Urine Bacteria (NONE) /hpf Urine Opiates Scre en (Negative) ng/mL Ur Barbiturates Sc reen (Negative) ng/mL Ur Phencyclidine S crn (Negative) ng/mL Ur Amphetamines Sc reen (Negative) ng/mL U Benzodiazepines Scrn (Negative) ng/mL Urine Cocaine Scre en (Negative) ng/mL U Marijuana (THC) Screen (Negative) ng/mL Influenza Type A A g (Negative) Influenza Type B A g (Negative) SARS-CoV-2 Ag (Rap id) (Negative) 05/08/21 05/08/21 Range/Units 16:50 20:50 WBC (4.0-10.0) 10^3/ uL RBC (4.1-5.3) 10^6/u L Hgb (11.5-15.3) g/dL Hct (37.0-47.0) % MCV (81-99) fL MCH (28.0-34.0) pg MCHC (30.0-36.0) g/dL RDW (12.1-15.1) % Plt Count (130-400) 10^3/c mm MPV (7.4-10.4) fL Neut % (Auto) % Lymph % (Auto) % [place] % (Auto) % Eos % (Auto) % Baso % (Auto) % Neut # (Auto) (1.8-7.7) 10^3/u L Lymph # (Auto) (0.8-4.8) 10^3/u L [place] # (Auto) (0.2-0.9) 10^3/u L Eos # (Auto) (0.0-0.8) 10^3/u L Baso # (Auto) (0.0-0.1) 10^3/u L Nucleated RBC % (a uto) % Nucleated RBCs # /100WBC Sodium (136-145) mmol/L Potassium (3.5-5.1) mmol/L Chloride (98-107) mmol/L Carbon Dioxide (22-29) mmol/L Anion Gap (5-19) BUN (6-20) mg/dL Creatinine (0.5-0.9) mg/dL GFR Calculation (90-130) mL/min Glucose (65-115) mg/dL Calculated Osmolal ity (285-295) mOsm/k g Lactate (0.5-2.2) mmol/L Calcium (8.5-10.5) mg/dL Total Bilirubin (0.15-1.2) mg/dL AST (0-32) U/L ALT (0-33) U/L Alkaline Phosphata se (35-105) IU/L Creatine Kinase (26-192) U/L C-Reactive Protein (0.0-4.9) mg/L Total Protein (6.6-8.7) g/dL Albumin (3.5-5.2) g/dL Globulin (1.3-4.6) g/dL Procalcitonin (0-0.5) ng/mL HCG, Qual (Negative) Urine Color (Yellow) Urine Appearance (CLEAR) Urine pH (5-7) Ur Specific Gravit y (1.005-1.030) Urine Protein (Negative) Urine Glucose (UA) (Normal) Urine Ketones (Negative) Urine Blood (Negative) Urine Nitrate (Negative) Urine Bilirubin (Negative) Urine Urobilinogen (Negative) mg/dL Ur Leukocyte Maddie ase (Negative) Urine RBC (0-2) /hpf Urine WBC (0-5) /hpf Ur Squamous Epith Cells (0-5) /hpf Amorphous Sediment Urine Bacteria (NONE) /hpf Urine Opiates Scre en (Negative) ng/mL Ur Barbiturates Sc reen (Negative) ng/mL Ur Phencyclidine S crn (Negative) ng/mL Ur Amphetamines Sc reen (Negative) ng/mL U Benzodiazepines Scrn (Negative) ng/mL Urine Cocaine Scre en (Negative) ng/mL U Marijuana (THC) Screen (Negative) ng/mL Influenza Type A A g Negative (Negative) Influenza Type B A g Negative (Negative) SARS-CoV-2 Ag (Rap id) Negative (Negative) Imaging Data^: CXR: Attestation: I personally reviewed and interpreted this imaging study as follows: Radiologist's impression: [address] [id number] ReportSigned Patient: Debo Little #: [id number]: 1990Acct#:[id number]/Sex: 30 / FADM Date: 05/08/21Loc: ERRoom/Bed:Attending Dr: Ordering Provider/Ordering MD: Valentino Johnson MD, [facility] Date of Service: 05/08/21 Procedure(s): XR chest 1V portable 20810 Accession Number(s): [id number] Report Number: [id number] PROCEDURE INFORMATION: Exam: XR Chest Exam date and time: 05/08/2021 3:21 PM Age: 30 years old Clinical indication: Fever; Prior surgery; Surgery type: Port TECHNIQUE: Imaging protocol: XR of the chest. Views: 1 view. COMPARISON: CT abdomen pelvis w con* [id number] 09/22/2020 11:22 AM FINDINGS: Tubes, catheters and devices: Right central line terminates within the proximal right atrium. Lungs: Peripheral opacity in the left lung base. Pleural spaces: Unremarkable. No pleural effusion. No pneumothorax. Heart/Mediastinum: Unremarkable. No cardiomegaly. Bones/joints: Unremarkable. XR/XR chest 1V portable [id number] IMPRESSION: Peripheral opacity in the left lung base, developing infection is not excluded. Dictated By:Alverto Mujica DOSigned By:Alverto Mujica DOSigned Date/Time:05/08/21 [id number]/ 1636 Discharge Plan Discharge Patient Disposition: Admitted As Inpatient Clinical Impression: Vascular dialysis catheter in place, Fever of unknown origin Left lower lobe pneumonia Qualifiers: Pneumonia type: due to unspecified organism Qualified Code(s): J18.9 - Pneumonia, unspecified organism Condition: Stable Coding Level of Care Code ED Batch Weigher for [facility] Fwd Exam Comprehensive
--- NOTE | 2021-05-08 15:54 | PC.PHAR ---
pt states she takes care of her own medications-pt states she has been taking lasixs everyday since she hasnt had dialysis in a month-rx filled for 1 tab two to three times a week not to take on dialysis days-ext med history shows hydralazine last filled on 04/20/21 30d/s for 100mg tid-pt states she just takes 3 tabs (=150mg) bid
[2021-05-08 16:47] LABS: HCG Qualitative Urine. Negative (Negative)
[2021-05-08 16:48] LABS: Basophils % 0.2 %; Eosinophils # 0.1 10^3/uL (0.0-0.8); Eosinophils % 1.5 %; Hematocrit 36.2 % (37.0-47.0); Hemoglobin 11.6 g/dL (11.5-15.3); Lymphocytes # 1.3 10^3/uL (0.8-4.8); Lymphocytes % 15.2 %; Mean Corpuscular Hemoglobin 30.3 pg (28.0-34.0); Mean Corpuscular Volume 94.5 fL (81-99); Monocytes # 0.8 10^3/uL (0.2-0.9); Neutrophils % 72.7 %; Nucleated Red Blood Cells % 0 %; Platelet Count 249 10^3/cmm (130-400); Red Blood Count 3.83 10^6/uL (4.1-5.3); Red Cell Distribution Width 13.2 % (12.1-15.1); White Blood Count 8.4 10^3/uL (4.0-10.0)
[2021-05-08 16:51] LABS: Add Urine Microscopic? YES; Bilirubin Urine Neg (Negative); Blood Urine Neg (Negative); Glucose Urine UA Norm (Normal); Ketones Urine Negative (Negative); Leukocyte Esterase Urine Negative (Negative); Nitrate Urine Negative (Negative); Protein Urine 1+ (Negative); Urine Appearance SL Hazy (CLEAR); Urine Color Yellow (Yellow); Urobilinogen Urine Norm (Negative); pH Urine 6.5 (5-7)
[2021-05-08 16:53] LABS: Add Urine Culture? No; Amphetamines Screen Urine Positive (Negative); Bacteria Urine 4+ /hpf; Barbiturates Screen Urine Negative (Negative); Benzodiazepines Screen Urine Negative (Negative); Cocaine Screen Urine Negative (Negative); Opiate Screen Urine Negative (Negative); PCP Screen Urine Negative (Negative); Squamous Epithelial Cell Urine 15-25 /hpf (0-5); THC Screen Urine Negative (Negative)
[2021-05-08 17:06] LABS: Lactate (Lactic Acid level) 0.5 mmol/L (0.5-2.2)
[2021-05-08 17:16] LABS: SARS Covid-2 Antigen Negative (Negative)
[2021-05-08 17:19] LABS: Procalcitonin 0.81 ng/mL (0-0.5)
[2021-05-08 17:30] LABS: Alanine Aminotransferase 12 U/L (0-33); Albumin Level 3.5 g/dL (3.5-5.2); Alkaline Phosphatase 98 IU/L (35-105); Anion Gap 15.4 (5-19); Aspartate Amino Transferase 15 U/L (0-32); Blood Urea Nitrogen 31 mg/dL (6-20); C Reactive Protein 20.6 mg/L (0.0-4.9); Calcium 8.6 mg/dL (8.5-10.5); Carbon Dioxide 22 mmol/L (22-29); Chloride 105 mmol/L (98-107); Creatine Phosphokinase 27 U/L (26-192); Creatinine Clr Calc Pharmacy 33.5214; Globulin 4.1 g/dL (1.3-4.6); Glomerular Filtration Rate 22.6 mL/min (90-130); Glucose 89 mg/dL (65-115); Osmolality Calculated 292 mOsm/kg (285-295); Potassium 4.4 mmol/L (3.5-5.1); Sodium 138 mmol/L (136-145); Total Bilirubin 0.2 mg/dL (0.15-1.2); Total Protein 7.6 g/dL (6.6-8.7)
--- NOTE | 2021-05-08 18:31 | P.HP_ITS ---
Providers/Chief Complaint Primary Care Provider: Laurent Wolfe MD Chief Complaint: PROBLEMS WITH PORT History of Present Illness 30 lady with history of hypertension, for which she says she currently takes 3 medications, history of methamphetamine abuse, acute kidney injury, recently transiently requiring hemodialysis between September 2020 and March 2021, currently with chronic kidney disease, presents to ER with 3-4 days of high f lindsey, productive 104, after referral from nephrology office where she was also noted to be hypertensive with blood pressure 200/130, after nephrology office could not reach her to schedule removal of hemodialysis catheter over about a month, with reported no dressing change for about a month. She reports appropriate fevers, which are accompanied by chills, she otherwise has been at baseline state of health. She has had mild cough. She otherwise denies any shortness of breath. Denies any headache, nausea vomiting or diarrhea. She has completed the series of COVID-19 vaccinations. Rapid COVID-19 was negative in ER. Here she is currently afebrile, no leukocytosis. Creatinine is noted 2.5, BUN 31. CRP 3.6. Chest x-ray with peripheral opacity in left lung base, developing infection cannot be excluded. UA with 5-10 WBC, 15-25 squamous epithelial cells. Urine drug screen was performed in ER. Positive for vitamins. She denies drug use. She states she has taken all her medications this morning. Blood pressure in ER is 136/74. Review of Systems Const: Reports: fever(s) and chills; Denies: body aches or malaise Eyes: Denies: change in vision or eye redness ENMT: Denies: throat pain, oral sores or ear or mastoid pain Card: Denies: chest pain, edema, pre-syncope or dyspnea on exertion Resp: Reports: non-productive cough (mild); Denies: dyspnea, productive cough, change in phlegm color or hemoptysis GI: Denies: abdominal pain, nausea, vomiting, diarrhea, constipation, hematochezia or melena : Denies: flank pain, urinary frequency or hematuria Musc: Denies: back pain, joint swelling or joint redness Skin/Breast: Denies: rash, sores or new lesions Neuro: Denies: headache(s), numbness in extremities, weakness in extremities, dizziness, confusion or seizure-like activity Endo: Denies: polyuria or polydipsia Bhavin/Lymph: Denies: easy bleeding or purpura All/Imm: Denies: urticaria, throat swelling or tongue swelling Medications/Allergies Home Medications Medication Instructions Recorded Confirmed Last Taken Type amlodipine 10 mg PO DAILY 05/08/21 05/08/21 05/08/21 12:00 History dicyclomine 10 mg PO TID PRN 05/08/21 05/08/21 05/08/21 History furosemide 20 mg PO . DIRECTED 05/08/21 05/08/21 05/08/21 History hydralazine 150 mg PO BID 05/08/21 05/08/21 05/08/21 12:00 History labetalol 300 mg PO BID 05/08/21 05/08/21 05/08/21 12:00 History minoxidil 10 mg PO BID 05/08/21 05/08/21 05/08/21 12:00 History Allergies Allergy/AdvReac Type Severity Reaction Status Date / Time No Known Allergies Allergy Verified 05/08/21 15:54 PFSH Acute PFSH: Medical History (Updated 05/08/21 @ 18:59 by Ralph Carter MD) Hypertension Methamphetamine abuse Substance abuse Surgical History (Updated 05/08/21 @ 18:32 by Ralph Carter MD) S/P cholecystectomy Family History Other CAD (coronary artery disease) Hypertension Social History Smoking and tobacco status: current every day smoker cigarettes Packs smoked per day: 0.5 Alcohol intake: never Substance/Drug Use: unknown Other details last substance use: Reports of prior methamphetamine abuse per prior documentation. Curr zhang Household members: family and other Details: Lives with mother Housing: House Marital status: Single Current occupational status: unemployed Current gender identity: Female Female Reproductive History: Date of last menstrual period: 09/05/20 Vitals/I&O/Wt Last Vital Signs Temp 98.1 F 05/08/21 14:11 Pulse 85 05/08/21 14:11 Resp 16 05/08/21 14:11 BP 136/74 05/08/21 14:11 Pulse Ox 98 05/08/21 14:11 Weight last 48 hrs Weight 86.183 kg Physical Exam Const: COMMON NORMALS: no acute distress and patient oriented x3 NUTRITIONAL APPEARANCE: obese HENMT: COMMON NORMALS: oropharynx normal Neck/C-Spine: COMMON NORMALS: no JVD Chest: OTHER: Right side chest tunneled hemodialysis catheter. Resp: COMMON NORMALS: normal respiratory effort and clear to auscultation bilaterally AUSCULTATION: clear to auscultation bilaterally Cardio: COMMON NORMALS: no JVD, regular rhythm, S1 normal heart sound present, S2 normal heart sound present and No murmurs present (Cardio) RHYTHM: regular rhythm HEART SOUNDS: S1 normal heart sound present and S2 normal heart sound present GI: COMMON NORMALS: Normal to inspection, nondistended, normoactive bowel so unds present, Soft to palpation and non-tender PALPATION: Yes Soft to palpation Extremity: COMMON NORMALS: no joint enlargement and no pedal edema Neuro: COMMON NORMALS: patient oriented x3 and moves all extremities Skin: COMMON NORMALS: no rashes or lesions noted GENERAL SKIN EXAM: no rashes or lesions noted Data : 05/08/21 16:35 05/08/21 16:35 Micro: Microbiology 05/08/21 16:30 Blood Culture - Preliminary Blood SPECIMEN COLLECTED 05/08/21 16:35 Blood Culture - Preliminary Blood SPECIMEN COLLECTED A&P Assessment and plan (1) Fever: Given hemodialysis catheter has stayed about a month longer than was meant to be, without any dressing change or reassessment, suspected at this time ca theter related infection. Blood cultures were collected. She is started on cefepime, vancomycin. She does have left lower lung opacification suggestive of possible pneumonia. Additionally follow-up blood cultures, discussed with her possible dissemination of infection, possible endocarditis, possible septic embolization. Surgery to see her for removal of tunneled catheter. Please send catheter tip for culture. She otherwise denies additional symptoms to suggest COVID-19 pneumonia. Rapid COVID-19 is negative. She has been vaccinated with a series of 2 vaccinations. Denies drug use. Status: Acute (2) Hypertension: Hypertensive urgency at nephrology clinic, blood pressure noted 204/130. Was referred to emergency department. Appears spontaneously blood pressure improved, and close to goal at emergency department. She states she did take all her medications this morning. Continue her usual medications. Monitor blood pressure. Status: Acute Additional A&P Information Possible PNA: Antibiotics as above. Assess TTE. CKD: No longer requiring dialysis. Continue follow-up with nephrology. Attestations Medical Necessity Statement*: Admission of over 2 midnights is going to be needed for assessment management of fevers with suspected catheter related infection, possible pneumonia. Coding Level of Care Code Acute Pharmacist In Charge for [facility] Fwd Exam Comprehensive Diagnoses Fever R50.9 Hypertension I10
[2021-05-08 18:38] VITALS: BP 178/104; PULSE 96; RESP 18; TEMP 37; O2SAT 98
[2021-05-08] MEDS: acetaminophen 500 mg Tablet 1000 MG PO (20:31)
[2021-05-08] MEDS: vancomycin 1,000 MG in sodium chloride 0.9% 250 ML 250 MG IV (20:32)
[2021-05-08 21:23] LABS: Influenza A by IFA Negative (Negative); Influenza B by IFA Negative (Negative)
[2021-05-08] MEDS: cefepime 2,000 MG in sodium chloride 0.9% (plus) 50 ML 100 MG IV (22:23)
[2021-05-09] VITALS (12 sets, daily range): BP systolic 146–194; BP diastolic 70–106; PULSE 60–91; RESP 14–20; TEMP 36.6–37.1; O2SAT 92–98; BMI 30.2
--- NOTE | 2021-05-09 00:57 | USCV_ITS ---
Debo Little Age: 30 Gender: F : 1990 Exam Date: 05/09/2021 08:40 Ordering Phys: Ralph Carter MD Technologist: Shawnee Seay [place] [facility] [place]: Fevers, catheter infection, PNA vs septic emboli BP: 157 / 83 HR: 65 Rhythm: Sinus Technical Quality: Adequate MEASUREMENTS (Male / Female) Normal Values 2D ECHO LV Diastolic Diameter PLAX 4.8 cm 4.2 - 5.9 / 3.9 - 5.3 cm LV Systolic Diameter PLAX 2.6 cm LV Chamber Size 3.3 cm IVS Diastolic Thickness 2.1 cm 0.6 - 1.0 / 0.6 - 0.9 cm IVS Systolic Thickness 3.0 cm LVPW Diastolic Thickness 2.4 cm 0.6 - 1.0 / 0.6 - 0.9 cm LVPW Systolic Thickness 3.3 cm RV Chamber Size 2.0 cm LVOT Diameter 1.9 cm LV Ejection Fraction 2D Teich 76.5 % LV Ejection Fraction MOD 2C 61.4 % LV Ejection Fraction 2C AL 62.8 % LA Diameter 3.3 cm LA Width 2.8 cm LA Height 5.4 cm RA Width 2.7 cm RA Height 4.4 cm Aorta at Sinotubular Diameter 1.9 cm M-MODE LV Diastolic Diameter MM 4.8 cm 4.2 - 5.9 / 3.9 - 5.3 cm LV Systolic Diameter MM 2.6 cm LV Ejection Fraction MM Teich 76.3 % IVS Diastolic Thickness MM 2.1 cm 0.6 - 1.0 / 0.6 - 0.9 cm IVS Systolic Thickness MM 2.4 cm LVPW Diastolic Thickness MM 2.4 cm 0.6 - 1.0 / 0.6 - 0.9 cm LVPW Systolic Thickness MM 3.2 cm RV Diastolic Diameter MM 2.6 cm Aortic Annulus Diameter 3.1 cm LA Ao Ratio MM 1.2 MV E Point Septal Separation 0.5 cm DOPPLER AV Peak Velocity 160.0 cm/s LVOT Peak Velocity 110.0 cm/s AV Area Cont Eq vti 2.7 cm squared AV Area Cont Eq pk 2.0 cm squared MV Area PHT 3.4 cm squared Mitral E to A Ratio 1.5 MV E' Velocity 55.5 cm/s Mitral E to MV E' Ratio 15.6 Mitral E to LV E' Lateral Ratio 13.2 Mitral E to LV E' Septal Ratio 19.0 TR Peak Velocity 263.0 cm/s TR Peak Gradient 27.7 mmHg TV Peak E Velocity 70.0 cm/s Right Atrial Pressure 3.0 mmHg Pulmonary Artery Systolic Pressu 30.7 mmHg PV Peak Velocity 91.0 cm/s RV Acceleration Time 0.1 s RV Ejection Time 0.3 s RV AcT/ET 0.4 FINDINGS Left Ventricle Normal left ventricular cavity size. Increased left ventricular wall thickness. Severe left ventricular hypertrophy. Normal left ventricular systolic function. Left ventricular ejection fraction is estimated at 65 %. No regional wall motion abnormalities. Grade II diastolic dysfunction, moderately elevated filling pressures. Right Ventricle Normal right ventricular size and systolic function. RVSP could not be calculated due to incomplete tricuspid regurgitation velocity profile. Right Atrium Normal right atrial size. Left Atrium Mildly increased left atrial size. Mitral Valve Mildly thickened mitral valve. No mitral valve stenosis. Trace mitral valve regurgitation. Aortic Valve Structurally normal trileaflet aortic valve. No aortic valve stenosis. No aortic valve regurgitation. Peak LVOT velocity of 1.6 m/s (10 mm Hg) that increased to 2.2 m/s (19 mm Hg) with valsalva. Tricuspid Valve Structurally normal tricuspid valve. No tricuspid valve stenosis. Trace tricuspid valve regurgitation. Pulmonic Valve Structurally normal pulmonic valve. No pulmonary valve stenosis. Trace pulmonary valve regurgitation. Pericardium Trivial to small pericardial effusionn located more along right ventricle. No evidence of hemodynamic compromise. Aorta Normal size aortic root and proximal ascending aorta. CONCLUSIONS 1. Normal left ventricular cavity size. Severe concentric left ventricular hypertrophy. Normal left ventricular systolic function. Left ventricular ejection fraction is estimated at 65 %. No regional wall motion abnormalities. Grade II diastolic dysfunction, moderately elevated filling pressures. 2. No significant LVOT gradient with valsalva. 3. Normal right ventricular size and systolic function. 4. Mildly increased left atrial size. 5. Trivial to small pericardial effusion located more along right ventricle. 6. No evidence of valvular vegetation based on this study. 7. Cardiac MRI is recommended for further evaluation of hypertrophy, if clinically indicated. 8. When compared to previous echocardiogram report dated 09/23/2020, left ventricular systolic function seems to have improved and there is pericardial effusion now. Lizzy Henderson MD (Electronically Signed) Final Date: 09 May 2021 11:38 Amended: 12 May 2021 17:12 C
--- NOTE | 2021-05-09 01:04 | PC.NURSE ---
pt last ate at 1:00 NPO since then
[2021-05-09 06:46] LABS: Basophils % 0.4 %; Eosinophils # 0.1 10^3/uL (0.0-0.8); Eosinophils % 0.8 %; Hematocrit 33.3 % (37.0-47.0); Hemoglobin 10.9 g/dL (11.5-15.3); Lymphocytes # 1.6 10^3/uL (0.8-4.8); Lymphocytes % 14.6 %; Mean Corpuscular HGB Conc 32.7 g/dL (30.0-36.0); Mean Corpuscular Hemoglobin 30.3 pg (28.0-34.0); Mean Corpuscular Volume 92.5 fL (81-99); Mean Platelet Volume 10.5 fL (7.4-10.4); Monocytes % 8.9 %; Neutrophils # 8.03 10^3/uL (1.8-7.7); Neutrophils % 74.8 %; Nucleated Red Blood Cells % 0 %; Platelet Count 246 10^3/cmm (130-400); Red Cell Distribution Width 13.2 % (12.1-15.1); White Blood Count 10.7 10^3/uL (4.0-10.0)
[2021-05-09 07:08] LABS: Alanine Aminotransferase 11 U/L (0-33); Albumin Level 3.3 g/dL (3.5-5.2); Alkaline Phosphatase 91 IU/L (35-105); Aspartate Amino Transferase 14 U/L (0-32); Blood Urea Nitrogen 31 mg/dL (6-20); Calcium 8.8 mg/dL (8.5-10.5); Carbon Dioxide 21 mmol/L (22-29); Chloride 106 mmol/L (98-107); Globulin 3.8 g/dL (1.3-4.6); Glomerular Filtration Rate 26.2 mL/min (90-130); Glucose 84 mg/dL (65-115); Osmolality Calculated 292 mOsm/kg (285-295); Sodium 138 mmol/L (136-145); Total Bilirubin 0.4 mg/dL (0.15-1.2); Total Protein 7.1 g/dL (6.6-8.7)
--- NOTE | 2021-05-09 08:38 | P.ANESASSM_ITS ---
Pre-Anesthetic Assessment Pre-Anesthetic Assessment: Height/Weight: Height 1.7 m Weight 87.589 kg Temp Pulse Resp BP Pulse Ox 98.5 F 70 14 181/83 92 05/09/21 07:39 05/09/21 07:39 05/09/21 07:39 05/09/21 07:39 05/09/21 07:39 Preop Diagnosis: HD catheter-related sepsis Proposed Procedure: Operation Date: 05/09/21 10:40 Proposed Procedures p Dialysis Catheter Removal Hemodialysis Catheter Removal(Right) - Neeraj Hernandez MD Familial anesthetic complications: None Was Beta Rosalinda taken within 24 hours: N/A Was Clonidine taken within 24 hours: N/A Last intake: Intake Last Liquid Date 05/09/21 Last Liquid Time 01:00 Last Solid Date 05/09/21 Last Solid Time 01:00 Social: Social History: Tobacco Comment: methamphetamine abuse Exam: Pre-Anes Outpt Exam: alert, oriented x 3, clear to auscultation bilaterally and regular rate & rhythm Airway: MP: 2 Dentition: Full Additional comments: Tongue ring Pulmonary: Comments: possible pneumonia (L lower lung) CV/HEM: CV/HEM: HTN (Hypertensive urgency ) Comments: Echo CONCLUSIONS Normal LV size with diminished ejection fraction of 48%. Mild diffuse hypokinesia of the left ventricle. Moderate concentric left renal hypertrophy Grade I/IV diastolic dysfunction (abnormal relaxation filling pattern), normal to mildly elevated filling pressures. Mildly thickened mitral valve. Trace to mild mitral valve regurgitation. There is no pericardial effusion. There are no intracardiac masses. The above features may suggest hypertrophic cardiomyopathy with no significant resting outflow tract obstruction. No similar previous studies are available for comparison. : : Chronic renal failure Comments: Received dialysis from Sep 2020 to March 2021. Kidney function stablized with Scr at 2.5 - was supposed to remove catheter over a month ago, but did not go for removal. Now, with infection d/t poor site care Hepatic: Hepatic: Hepatitis (C) Anesthetic Plan: ASA status: 4 Anesthesia: MAC Risk of > 500 ml blood loss (7ml/kg in children): No Other Pertinent Information: Methamphetamine abuse Meds/Allergies Current Medications: Current Medications Generic Name Dose Route Start Last Admin Trade Name Freq PRN Reason Stop Dose Admin Vancomycin HCl 1,0 00 mg/ 250 mls @ 250 mls /hr 05/08/21 19:30 05/08/21 21:59 Sodium Chloride IV Infused Q24H GENNY Infusion Protocol PFSH Anesthesia PFSH: Medical History (Updated 05/08/21 @ 22:57 by Valentino Johnson MD, MSM) Hypertension Methamphetamine abuse Substance abuse Surgical History (Updated 05/09/21 @ 09:14 by Neeraj Hernandez MD) S/P cholecystectomy Status post biopsy of kidney Status post insertion of hemodialysis catheter Family History Other CAD (coronary artery disease) Hypertension Social History Smoking and tobacco status: current every day smoker cigarettes Packs smoked per day: 0.5 Alcohol intake: never Substance/Drug Use: unknown Other details last substance use: Reports of prior methamphetamine abuse per prior documentation. Juan holcomb Household members: family and other Details: Lives with mother Housing: House Marital status: Single Current occupational status: unemployed Current gender identity: Female Female Reproductive History: Date of last menstrual period: 09/05/20 Data Anesthesia CBC & Chem 7: 05/09/21 06:16 05/09/21 06:16 Other Labs: Laboratory Results - last 48 hr 05/08/21 05/08/21 05/08/21 16:25 16:25 16:25 WBC RBC Hgb Hct MCV MCH MCHC RDW Plt Count MPV Neut % (Auto) Lymph % (Auto) [place] % (Auto) Eos % (Auto) Baso % (Auto) Neut # (Auto) Lymph # (Auto) [place] # (Auto) Eos # (Auto) Baso # (Auto) Nucleated RBC % (auto) Nucleated RBCs # Sodium Potassium Chloride Carbon Dioxide Anion Gap BUN Creatinine GFR Calculation Glucose Calculated Osmolality Lactate Calcium Total Bilirubin AST ALT Alkaline Phosphatase Creatine Kinase C-Reactive Protein Total Protein Albumin Globulin Procalcitonin HCG, Qual Negative Urine Color Yellow Urine Appearance Sl hazy Urine pH 6.5 Ur Specific [place] 1.010 Urine Protein 1+ H Urine Glucose (UA) Norm Urine Ketones Negative Urine Blood Neg Urine Nitrate Negative Urine Bilirubin Neg Urine Urobilinogen Norm Ur Leukocyte Esterase Negative Urine RBC None Urine WBC 5-10 H Ur Squamous Epith Cells 15-25 H Amorphous Sediment Not Reportable Urine Bacteria 4+ H Urine Opiates Screen Negative Ur Barbiturates Screen Negative Ur Phencyclidine Scrn Negative Ur Amphetamines Screen Positive H U Benzodiazepines Scrn Negative Urine Cocaine Screen Negative U Marijuana (THC) Screen Negative Influenza Type A Ag Influenza Type B Ag SARS-CoV-2 Ag (Rapid) 05/08/21 05/08/21 05/08/21 16:35 16:35 16:35 WBC 8.4 RBC 3.83 L Hgb 11.6 Hct 36.2 L MCV 94.5 MCH 30.3 MCHC 32.0 RDW 13.2 Plt Count 249 MPV 10.0 Neut % (Auto) 72.7 Lymph % (Auto) 15.2 [place] % (Auto) 9.0 Eos % (Auto) 1.5 Baso % (Auto) 0.2 Neut # (Auto) 6.10 Lymph # (Auto) 1.3 [place] # (Auto) 0.8 Eos # (Auto) 0.1 Baso # (Auto) 0.0 Nucleated RBC % (auto) 0 Nucleated RBCs # 0.0 Sodium 138 Potassium 4.4 Chloride 105 Carbon Dioxide 22 Anion Gap 15.4 BUN 31 H Creatinine 2.5 H GFR Calculation 22.6 L Glucose 89 Calculated Osmolality 292 Lactate 0.5 Calcium 8.6 Total Bilirubin 0.2 AST 15 ALT 12 Alkaline Phosphatase 98 Creatine Kinase 27 C-Reactive Protein 20.6 H Total Protein 7.6 Albumin 3.5 Globulin 4.1 Procalcitonin 0.81 H HCG, Qual Urine Color Urine Appearance Urine pH Ur Specific [place] Urine Protein Urine Glucose (UA) Urine Ketones Urine Blood Urine Nitrate Urine Bilirubin Urine Urobilinogen Ur Leukocyte Esterase Urine RBC Urine WBC Ur Squamous Epith Cells Amorphous Sediment Urine Bacteria Urine Opiates Screen Ur Barbiturates Screen Ur Phencyclidine Scrn Ur Amphetamines Screen U Benzodiazepines Scrn Urine Cocaine Screen U Marijuana (THC) Screen Influenza Type A Ag Influenza Type B Ag SARS-CoV-2 Ag (Rapid) 05/08/21 05/08/21 05/09/21 16:50 20:50 06:16 WBC 10.7 H RBC 3.60 L Hgb 10.9 L Hct 33.3 L MCV 92.5 MCH 30.3 MCHC 32.7 RDW 13.2 Plt Count 246 MPV 10.5 H Neut % (Auto) 74.8 Lymph % (Auto) 14.6 [place] % (Auto) 8.9 Eos % (Auto) 0.8 Baso % (Auto) 0.4 Neut # (Auto) 8.03 H Lymph # (Auto) 1.6 [place] # (Auto) 1.0 H Eos # (Auto) 0.1 Baso # (Auto) 0.0 Nucleated RBC % (auto) 0 Nucleated RBCs # 0.0 Sodium Potassium Chloride Carbon Dioxide Anion Gap BUN Creatinine GFR Calculation Glucose Calculated Osmolality Lactate Calcium Total Bilirubin AST ALT Alkaline Phosphatase Creatine Kinase C-Reactive Protein Total Protein Albumin Globulin Procalcitonin HCG, Qual Urine Color Urine Appearance Urine pH Ur Specific [place] Urine Protein Urine Glucose (UA) Urine Ketones Urine Blood Urine Nitrate Urine Bilirubin Urine Urobilinogen Ur Leukocyte Esterase Urine RBC Urine WBC Ur Squamous Epith Cells Amorphous Sediment Urine Bacteria Urine Opiates Screen Ur Barbiturates Screen Ur Phencyclidine Scrn Ur Amphetamines Screen U Benzodiazepines Scrn Urine Cocaine Screen U Marijuana (THC) Screen Influenza Type A Ag Negative Influenza Type B Ag Negative SARS-CoV-2 Ag (Rapid) Negative 05/09/21 06:16 WBC RBC Hgb Hct MCV MCH MCHC RDW Plt Count MPV Neut % (Auto) Lymph % (Auto) [place] % (Auto) Eos % (Auto) Baso % (Auto) Neut # (Auto) Lymph # (Auto) [place] # (Auto) Eos # (Auto) Baso # (Auto) Nucleated RBC % (auto) Nucleated RBCs # Sodium 138 Potassium 4.0 Chloride 106 Carbon Dioxide 21 L Anion Gap 15.0 BUN 31 H Creatinine 2.2 H GFR Calculation 26.2 L Glucose 84 Calculated Osmolality 292 Lactate Calcium 8.8 Total Bilirubin 0.4 AST 14 ALT 11 Alkaline Phosphatase 91 Creatine Kinase C-Reactive Protein Total Protein 7.1 Albumin 3.3 L Globulin 3.8 Procalcitonin HCG, Qual Urine Color Urine Appearance Urine pH Ur Specific [place] Urine Protein Urine Glucose (UA) Urine Ketones Urine Blood Urine Nitrate Urine Bilirubin Urine Urobilinogen Ur Leukocyte Esterase Urine RBC Urine WBC Ur Squamous Epith Cells Amorphous Sediment Urine Bacteria Urine Opiates Screen Ur Barbiturates Screen Ur Phencyclidine Scrn Ur Amphetamines Screen U Benzodiazepines Scrn Urine Cocaine Screen U Marijuana (THC) Screen Influenza Type A Ag Influenza Type B Ag SARS-CoV-2 Ag (Rapid) Micro: Microbiology 05/08/21 16:30 Blood Culture - Preliminary Blood Gram Negative Rods 05/08/21 16:35 Blood Culture - Preliminary Blood Gram Negative Rods Cardiac Studies: No Data to Display
--- NOTE | 2021-05-09 09:09 | PM.CONSULT ---
Providers/Reason For Consult Consulting Physician/Specialty*: General Surgery Neeraj Hernandez MD Reason for Consult*: Requesting removal of tunneled dialysis catheter. Attending Physician: Ralph Carter Primary Care Provider: Laurent Wolfe MD History of Present Illness History of Present Illness Debo Little is a 30 year old female who underwent placement of a tunneled dialysis back in September in [facility]) for an acute kidney injury requiring hemodialysis. She says the last time the catheter was used was reportedly 1 month ago. She was then told that the catheter could be removed but that has never happened. She says that she has been running intermittent fevers for the last month, every several days up to 103 or 104 degrees at times. She does not have any other symptoms associated with this. She is now in the hospital and removal of the catheter has been requested. Review of Systems Const: Reports: fever(s) and chills Meds/Allergies Home Medications and Allergies Home Medications Medication Instructions Recorded Confirmed Last Taken Type amlodipine 10 mg PO DAILY 05/08/21 05/08/21 05/08/21 12:00 History dicyclomine 10 mg PO TID PRN 05/08/21 05/08/21 05/08/21 History furosemide 20 mg PO . DIRECTED 05/08/21 05/08/21 05/08/21 History hydralazine 150 mg PO BID 05/08/21 05/08/21 05/08/21 12:00 History labetalol 300 mg PO BID 05/08/21 05/08/21 05/08/21 12:00 History minoxidil 10 mg PO BID 05/08/21 05/08/21 05/08/21 12:00 History Allergies Allergy/AdvReac Type Severity Reaction Status Date / Time No Known Allergies Allergy Verified 05/08/21 15:54 Current Medications Current Medications Generic Name Dose Route Start Last Admin Trade Name Freq PRN Reason Stop Dose Admin Vancomycin HCl 1,000 mg/ 250 mls @ 250 mls/hr 05/08/21 19:30 05/08/21 21:59 Sodium Chloride IV Infused Q24H GENNY Infusion Protocol PFSH Acute PFSH: Medical History (Updated 05/08/21 @ 22:57 by Valentino Johnson MD, [facility] [place]) Hypertension Methamphetamine abuse Substance abuse Surgical History (Updated 05/09/21 @ 09:14 by Neeraj Hernandez MD) S/P cholecystectomy Status post biopsy of kidney Status post insertion of hemodialysis catheter Family History Other CAD (coronary artery disease) Hypertension Social History Smoking and tobacco status: current every day smoker cigarettes Packs smoked per day: 0.5 Alcohol intake: never Substance/Drug Use: unknown Other details last substance use: Reports of prior methamphetamine abuse per prior documentation. Juan holcomb Household members: family and other Details: Lives with mother Housing: House Marital status: Single Current occupational status: unemployed Current gender identity: Female Female Reproductive History: Date of last menstrual period: 09/05/20 Vitals/I&O/Wt Last Vital Signs Temp 98.5 F 05/09/21 07:39 Pulse 70 05/09/21 07:39 Resp 14 05/09/21 07:39 BP 181/83 05/09/21 07:39 Pulse Ox 92 05/09/21 07:39 05/08/21 05/09/21 05/09/21 22:59 06:59 14:59 Intake Total 250 / 490 240 / 490 Balance 250 / 490 240 / 490 Weight last 48 hrs Weight 193 lb 1.6 oz Weight 190 lb Physical Exam Narrative: EXAM NARRATIVE: The patient was encountered in her hospital room. She does not appear to be in any distress. The pupils are equal. No carotid bruits are heard. The lungs are clear anteriorly. The heart is regular. The patient has a tunneled hemodialysis catheter in the right internal jugular vein that exits on the right side of the chest. The site itself is unremarkable. The abdomen is mildly obese but is soft and nontender. The extremities reveal no edema. Neurologically the patient appears to be grossly intact. Data Micro: Micro: Microbiology 05/08/21 16:30 Blood Culture - Pr eliminary Blood Gram Negative R ods 05/08/21 16:35 Blood Culture - Pr eliminary Blood Gram Negative R ods A&P Assessment and plan (1) Vascular dialysis catheter in place: The patient has not required hemodialysis in the past month. She has been running intermittent fevers and removal of the catheter has been requested. The patient has been n.p.o. since last night. I discussed details of the procedure including risks of further infection, bleeding, etc. The patient seems to understand and is agreeable to proceeding with removal of her catheter this morning. I will plan to send the tip of the catheter for culture following its removal. Status: Acute (2) Fever of unknown origin: Status: Acute Consult Attestations Medical Necessity Statement: See admitting service's notation. 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
[2021-05-09] MEDS: cefepime 2,000 MG in sodium chloride 0.9% (plus) 50 ML 100 MG IV (09:33)
[2021-05-09] MEDS: labetalol 5 mg/mL SDV 20mL 10 MG IVP (10:22)
[2021-05-09] MEDS: sodium chloride 0.9% 1,000 ML 30 ML IV (10:22)
--- NOTE | 2021-05-09 11:55 | PM.OP ---
Operative Report Date of procedure: May 09, 2021 Pre-op Diagnosis: Suspected hemodialysis catheter related bacteremia. Post-op diagnosis: same Procedure Done: Removal of hemodialysis catheter, tip sent for culture. Specimens removed/disposition: Catheter tip sent for culture. Surgeon: Neeraj Hernandez Anesthesia: MAC Estimated blood loss (mL): 1 Complications: None. Condition: stable Disposition: PACU Procedure: The patient was brought to the operating room and was placed in a supine position on the operating room table. A monitored anesthetic was induced. The hemodialysis catheter site on the right side of the chest was prepped and draped in a sterile fashion. A combination of 1% lidocaine with 1 to 100,000 parts epinephrine and 0.5% bupivacaine was used for local anesthesia throughout the procedure. The skin overlying the exit site of the catheter was incised in parallel with the catheter for for a short distance so the subcutaneous tissue could be dissected with a hemostat. The catheter cuff came into view and cautery was used to remove the fibrous tissue attached to the cuff. The hemodialysis catheter was then removed easily intact. The tip was removed and was sent in a sterile container for culture. The tract was irrigated with saline and then a pursestring suture of 3-0 Vicryl was placed near the skin opening to prevent any bleeding. The remainder of the wound was left open. This was covered with some triple antibiotic ointment and a sterile pressure dressing. The patient was taken to the recovery area in stable condition postoperatively.
--- NOTE | 2021-05-09 12:03 | P.PCN_ITS ---
PACU note PACU note: VSS, Good respiratory effort, report to RAND SEWER Post-Anesthesia Exam: awake
--- NOTE | 2021-05-09 12:03 | PM.PACU ---
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
[2021-05-09] MEDS: neomycin-poly-bacitracin oint 28 gm 1 APPLIC TOPICAL (12:12)
--- NOTE | 2021-05-09 12:30 | ANE.PACU2 ---
Inpatient post-anesthesia follow up: Airway intact: Yes Vital signs: Temperature 97.8 F Pulse Rate [Left R adial] 85 Pulse Rate 67 Respiratory Rate 18 Blood Pressure [Le ft Arm] 136/74 Blood Pressure 181/96 Pulse Oximetry 96 Oxygen Delivery Me thod Room Air Oxygen Flow Rate Fraction of Inspir ed Oxygen Hydration adequate: Yes Nausea and vomiting: No Pain level: 2 Mental status: Baseline
[2021-05-09] MEDS: amlodipine 10 mg Tablet PO (13:48)
[2021-05-09] MEDS: minoxidil 10 mg Tablet PO (13:50)
[2021-05-09] MEDS: hyDRALAzine 50 mg Tablet 150 MG PO (15:07)
[2021-05-09] MEDS: labetalol 200 mg Tablet 300 MG PO (15:07)
--- NOTE | 2021-05-09 15:18 | P.DS_ITS ---
Discharge Providers Date of Admission: 05/08/21 17:51 Date of Discharge: May 09, 2021 Attending Provider at Admission: Ralph Carter Attending Provider at Discharge: Ralph Carter Primary Care Provider: Laurent Wolfe MD Diagnoses at Discharge Discharge Diagnosis (1) Vascular dialysis catheter in place: Status: Acute (2) Fever of unknown origin: Status: Acute Reason for Visit Reason for Visit: PROBLEMS WITH PORT Hospital Course Hospital Course 30-year-old lady with history of hypertension, history of methamphetamine abuse, kidney injury, transiently needing hemodialysis between September 2020 and March 2021, currently with chronic kidney disease, has not required dialysis any longer, but could not be reached by her ring maker to either change the dressing and then remove the tunneled dialysis catheter in her right chest. She has experienced fevers of 103-104 Fahrenheit for the last 3-4 days. On reassessment in nephrology office noted additionally significantly hypertensive, blood pressure 200/130. Was referred to ER for evaluation. Blood cultures were collected. She has been empirically treated with vancomycin, cefepime. Was assessed by general surgery today with removal of catheter and tip sent for culture. Blood cultures today returned growing 3/4 bottles gram-negative elzbieta not yet identified and sensitivities not yet available. On presentation rapid COVID-19 was negative. Creatinine noted 2.5, BUN 31. CRP 3.6. Chest x-ray with peripheral opacity in the left lung base developing infection possible. UA with 5-10 WBC, 15-25 squamous epithelial cells. Urine drug screen done in ER tested positive for amphetamines. She has denied any recent drug use, however. We discussed with her concern regarding possible septic embolization at presentation. TTE was obtained. Showing normal ejection fraction, grade 2 diastolic dysfunction, trivial to small pericardial effusion located more along right ventricle. Just after returning from removal of the hemodialysis catheter she had requested to go home. On assessment she is being visited by a male visitor who was present during the discussion. Discussed with her regarding finding today of high-grade bacteremia with 3/4 bottles of blood culture positive for gram- negative rods of unknown source. The organism at this time also is not identified, with unknown sensitivities. Discussed with her we would like to perform additional diagnostic assessments and continue treatment with IV antibiotics. She requested that she would like to go home. Discussed with her that we could try to minimize the assessment and treatment footprint and consider revisiting tomorrow. She stated that she would like to have a cigarette and so would like to go home and smoke. I offered that we could provide nicotine patches and lozenges to help with nicotine replacement for cravings. She states that they do not work , declining either. Asks if she can smoke here. Discussed with her it is a non-smoking facility for the safety of hers and others. She has she would like to go home smoke there and come back. Asks what would happen if she just leaves. Discussed with her that she would not be kept here against her will, however, highly encouraged her to stay to continue assessment and treatment given very serious condition, which could progress or deteriorate including with worsening infection, sepsis, septic shock, spread of infection to other places, potentially disabling severe complications, possibly . Discussed with her that gram-negative elzbieta is not necessarily a common organism to infect a catheter. We do not yet have identification of the organism and not a clear understanding as to how the infection had gotten into her bloodstream. We do not have yet also a good idea of which antibiotic would be best to transition to oral therapy. She stated okay, and turned to her significant other. Shortly after I received notification from nurse that she had decided she would like to leave AGAINST MEDICAL ADVICE. She was against counseled by the nurse regarding the risks of doing so. She is encouraged to continue her hospitalization or return at any time given the seriousness of the condition. She is provided with a course of 14 days of Levaquin, although again as noted the organism identification and sensitivity are not yet available. She is encouraged to leave her phone number, as well as to otherwise follow-up with her primary provider at the soonest available appointment, and continue follow-up with the nephrology specialist. Physical Exam Const: COMMON NORMALS: no acute distress and patient oriented x3 NUTRITIONAL APPEARANCE: obese HENMT: COMMON NORMALS: oropharynx normal Neck/C-Spine: COMMON NORMALS: no JVD Chest: OTHER: Right side chest tunneled hemodialysis catheter removed. Clean dressing. Resp: COMMON NORMALS: normal respiratory effort and clear to auscultation bilaterally AUSCULTATION: clear to auscultation bilaterally Cardio: COMMON NORMALS: no JVD, regular rhythm, S1 normal heart sound present, S2 normal heart sound present and No murmurs present (Cardio) RHYTHM: regular rhythm HEART SOUNDS: S1 normal heart sound present and S2 normal heart sound present GI: COMMON NORMALS: Normal to inspection, nondistended, normoactive bowel sounds present, Soft to palpation and non-tender PALPATION: Yes Soft to palpation Extremity: COMMON NORMALS: no joint enlargement and no pedal edema Neuro: COMMON NORMALS: patient oriented x3 and moves all extremities Skin: COMMON NORMALS: no rashes or lesions noted GENERAL SKIN EXAM: no rashes or lesions noted Discharge Data Data Completed and Pending: Completed Studies During Hospitalization Category Date Time Status XR chest 1V elva ble [id number] Urgent Exams 05/08/21 15:21 Completed CV. echo complete * [id number] Routine Ultrasound 05/09/21 00:57 Completed Pending at discharge Category Date Time Status Blood Culture Sta t Lab 05/08/21 16:30 Results Catheter Tip Cult ure Routine Lab 05/09/21 12:00 Received Complete Blood Co unt w/Auto AM LABS Lab 05/10/21 04:00 Ordered Complete Blood Co unt w/Auto AM LABS Lab 05/11/21 04:00 Ordered Comprehensive Met abolic Panel AM LA BS Lab 05/10/21 04:00 Ordered Comprehensive Met abolic Panel AM LA BS Lab 05/11/21 04:00 Ordered Legionella Antige n STAT Routine Lab 05/09/21 09:55 Results Sputum Culture an d Gram Stain Routi ne Lab 05/09/21 08:55 Results Urine Culture Rou sakina Lab 05/09/21 09:55 Results Labs from last 24 hours 05/09/21 05/09/21 05/08/21 06:16 06:16 20:50 WBC 10.7 H RBC 3.60 L Hgb 10.9 L Hct 33.3 L MCV 92.5 MCH 30.3 MCHC 32.7 RDW 13.2 Plt Count 246 MPV 10.5 H Neut % (Auto) 74.8 Lymph % (Auto) 14.6 [place] % (Auto) 8.9 Eos % (Auto) 0.8 Baso % (Auto) 0.4 Neut # (Auto) 8.03 H Lymph # (Auto) 1.6 [place] # (Auto) 1.0 H Eos # (Auto) 0.1 Baso # (Auto) 0.0 Nucleated RBC % (a uto) 0 Nucleated RBCs # 0.0 Sodium 138 Potassium 4.0 Chloride 106 Carbon Dioxide 21 L Anion Gap 15.0 BUN 31 H Creatinine 2.2 H GFR Calculation 26.2 L Glucose 84 Calculated Osmolal ity 292 Lactate Calcium 8.8 Total Bilirubin 0.4 AST 14 ALT 11 Alkaline Phosphata se 91 Creatine Kinase C-Reactive Protein Total Protein 7.1 Albumin 3.3 L Globulin 3.8 Procalcitonin HCG, Qual Urine Color Urine Appearance Urine pH Ur Specific Gravit y Urine Protein Urine Glucose (UA) Urine Ketones Urine Blood Urine Nitrate Urine Bilirubin Urine Urobilinogen Ur Leukocyte Maddie ase Urine RBC Urine WBC Ur Squamous Epith Cells Amorphous Sediment Urine Bacteria Urine Opiates Scre en Ur Barbiturates Sc reen Ur Phencyclidine S crn Ur Amphetamines Sc reen U Benzodiazepines Scrn Urine Cocaine Scre en U Marijuana (THC) Screen Influenza Type A A g Negative Influenza Type B A g Negative SARS-CoV-2 Ag (Rap id) 05/08/21 05/08/21 05/08/21 16:50 16:35 16:35 WBC RBC Hgb Hct MCV MCH MCHC RDW Plt Count MPV Neut % (Auto) Lymph % (Auto) [place] % (Auto) Eos % (Auto) Baso % (Auto) Neut # (Auto) Lymph # (Auto) [place] # (Auto) Eos # (Auto) Baso # (Auto) Nucleated RBC % (a uto) Nucleated RBCs # Sodium 138 Potassium 4.4 Chloride 105 Carbon Dioxide 22 Anion Gap 15.4 BUN 31 H Creatinine 2.5 H GFR Calculation 22.6 L Glucose 89 Calculated Osmolal ity 292 Lactate 0.5 Calcium 8.6 Total Bilirubin 0.2 AST 15 ALT 12 Alkaline Phosphata se 98 Creatine Kinase 27 C-Reactive Protein 20.6 H Total Protein 7.6 Albumin 3.5 Globulin 4.1 Procalcitonin 0.81 H HCG, Qual Urine Color Urine Appearance Urine pH Ur Specific Gravit y Urine Protein Urine Glucose (UA) Urine Ketones Urine Blood Urine Nitrate Urine Bilirubin Urine Urobilinogen Ur Leukocyte Maddie ase Urine RBC Urine WBC Ur Squamous Epith Cells Amorphous Sediment Urine Bacteria Urine Opiates Scre en Ur Barbiturates Sc reen Ur Phencyclidine S crn Ur Amphetamines Sc reen U Benzodiazepines Scrn Urine Cocaine Scre en U Marijuana (THC) Screen Influenza Type A A g Influenza Type B A g SARS-CoV-2 Ag (Rap id) Negative 07/05/08/21 05/08/21 16:35 16:25 16:25 WBC 8.4 RBC 3.83 L Hgb 11.6 Hct 36.2 L MCV 94.5 MCH 30.3 MCHC 32.0 RDW 13.2 Plt Count 249 MPV 10.0 Neut % (Auto) 72.7 Lymph % (Auto) 15.2 [place] % (Auto) 9.0 Eos % (Auto) 1.5 Baso % (Auto) 0.2 Neut # (Auto) 6.10 Lymph # (Auto) 1.3 [place] # (Auto) 0.8 Eos # (Auto) 0.1 Baso # (Auto) 0.0 Nucleated RBC % (a uto) 0 Nucleated RBCs # 0.0 Sodium Potassium Chloride Carbon Dioxide Anion Gap BUN Creatinine GFR Calculation Glucose Calculated Osmolal ity Lactate Calcium Total Bilirubin AST ALT Alkaline Phosphata se Creatine Kinase C-Reactive Protein Total Protein Albumin Globulin Procalcitonin HCG, Qual Urine Color Yellow Urine Appearance Sl hazy Urine pH 6.5 Ur Specific Gravit y 1.010 Urine Protein 1+ H Urine Glucose (UA) Norm Urine Ketones Negative Urine Blood Neg Urine Nitrate Negative Urine Bilirubin Neg Urine Urobilinogen Norm Ur Leukocyte Maddie ase Negative Urine RBC None Urine WBC 5-10 H Ur Squamous Epith Cells 15-25 H Amorphous Sediment Not Reportable Urine Bacteria 4+ H Urine Opiates Scre en Negative Ur Barbiturates Sc reen Negative Ur Phencyclidine S crn Negative Ur Amphetamines Sc reen Positive H U Benzodiazepines Scrn Negative Urine Cocaine Scre en Negative U Marijuana (THC) Screen Negative Influenza Type A A g Influenza Type B A g SARS-CoV-2 Ag (Rap id) 05/08/21 16:25 WBC RBC Hgb Hct MCV MCH MCHC RDW Plt Count MPV Neut % (Auto) Lymph % (Auto) [place] % (Auto) Eos % (Auto) Baso % (Auto) Neut # (Auto) Lymph # (Auto) [place] # (Auto) Eos # (Auto) Baso # (Auto) Nucleated RBC % (a uto) Nucleated RBCs # Sodium Potassium Chloride Carbon Dioxide Anion Gap BUN Creatinine GFR Calculation Glucose Calculated Osmolal ity Lactate Calcium Total Bilirubin AST ALT Alkaline Phosphata se Creatine Kinase C-Reactive Protein Total Protein Albumin Globulin Procalcitonin HCG, Qual Negative Urine Color Urine Appearance Urine pH Ur Specific Gravit y Urine Protein Urine Glucose (UA) Urine Ketones Urine Blood Urine Nitrate Urine Bilirubin Urine Urobilinogen Ur Leukocyte Maddie ase Urine RBC Urine WBC Ur Squamous Epith Cells Amorphous Sediment Urine Bacteria Urine Opiates Scre en Ur Barbiturates Sc reen Ur Phencyclidine S crn Ur Amphetamines Sc reen U Benzodiazepines Scrn Urine Cocaine Scre en U Marijuana (THC) Screen Influenza Type A A g Influenza Type B A g SARS-CoV-2 Ag (Rap id) Vitals: Last Vital Signs Temp 97.8 F 05/09/21 13:54 Pulse 67 05/09/21 13:54 Resp 18 05/09/21 13:54 BP 181/96 05/09/21 13:54 Pulse Ox 96 05/09/21 13:54 Discharge Plan Discharge Patient Disposition: Left Against Medical Advice Condition: Serious Prescriptions: New levofloxacin 750 mg tablet 750 mg PO Q24H 14 Days Qty: 14 RF: 0 Continued amlodipine 10 mg tablet 10 mg PO DAILY RF: 0 minoxidil 10 mg tablet 10 mg PO BID RF: 0 hydralazine 50 mg tablet 150 mg PO BID RF: 0 furosemide 20 mg tablet 20 mg PO . DIRECTED RF: 0 labetalol 100 mg tablet 300 mg PO BID RF: 0 dicyclomine 10 mg capsule 10 mg PO TID PRN (Reason: Cramps) RF: 0 Discharge Orders: Discharge Order (Routine); Ordered 05/09/21 Ordered By: Ralph Carter Referrals: Laurent Wolfe MD [Primary Care Provider] - 1-3 days Christian Shoemaker MD [Referring] - 4-7 days Patient Instructions: Levofloxacin (By mouth) Activity Restrictions/Additional Instructions: Please note that you are leaving the hospital prematurely before your condition could be adequately diagnosed and treated. Please note that you have high-grade bacteremia with gram-negative rods found in 3 out of 4 bottles drawn from your blood. This organism is not yet identified. Final cultures are still pending. There could be other organisms as well. At this time we do not have the cause of the bacteremia identified. You also appear to have possible pneumonia, or po ssible spread of infection to your bloodstream by septic embolization to your lung. You are highly encouraged to stay in the hospital and continue treatment, or return to ER to resume assessment and treatment. Premature termination of treatment risks sepsis, septic shock, spread of infection to other organs, paralysis and loss of function, severe disability, . Please return to seek treatment at any time, or at least see your primary provider at the soonest available appointment. You are prescribed an antibiotic at this time empirically, however, this medication may not cover for the infection as we do not yet have identification of the organism. A different antibiotic may be needed, please leave a working phone number at which you can be reached. Please note you also have poorly controlled hypertension, and are at risk of stroke, heart attack, and other complications. Please continue to take your medications and monitor your blood pressure closely, seek reevaluation with your primary provider and nephrology specialist at soonest available appointment. Discharge Attestations Time Spent in Discharge Care*: greater than 30 min Status at Discharge: Cognitive status at discharge: cognitively intact , Behavioral status at discharge: cooperative , Quality Metrics Clinical Quality Measures During this hospital stay, did patient experience: None Coding Level of Care Code Acute Chg FW DC note Diagnoses Vascular dialysis catheter in place Z99.2 Fever of unknown origin R50.9
--- NOTE | 2021-05-11 16:59 | PC.RESP ---
Smoking Cessation information sent to patient.
== END 2021-05-09 15:27 | disposition left against medical advice (07) | DRG 316 ==
LOC: ER 22:57 → MEDSURG 05-09 04:47
PROVIDERS: Surgery; Admitting Provider Internal Medicine; Emergency Provider Family Medicine; PCP Family Medicine; Visit Provider Internal Medicine
PROC: 02PAX3Z Removal of Infusion Device from Heart, External Approach (ICD-10-PCS; principal; 2021-05-09 10:30)
DX: T82.7XXA Infection and inflammatory reaction due to other cardiac and vascular devices, implants and grafts, initial encounter (principal); Y81.1 Therapeutic (nonsurgical) and rehabilitative general- and plastic-surgery devices associated with adverse incidents; I12.9 Hypertensive chronic kidney disease with stage 1 through stage 4 chronic kidney disease, or unspecified chronic kidney disease; N18.9 Chronic kidney disease, unspecified; F15.10 Other stimulant abuse, uncomplicated; F17.210 Nicotine dependence, cigarettes, uncomplicated; Z53.29 Procedure and treatment not carried out because of patient's decision for other reasons
CPT/HCPCS: 36415; 71045; 80053; 80306; 81001; 81025; 82550; 83605; 84145; 85025; 86140; 86403; 87040; 87070; 87075; 87077; 87086; 87186; 87205; 87426; 87449; 87804; 93306; 96365; 96367; 96374; 96375; 99285; J0690; J0692; J2704; J3010; J3370; J3490; J7030; J7050

== ENCOUNTER 2021-08-25 12:47 | Emergency (ER) | payer MEDICARE, MEDICAID, SELFPAY ==
[2021-08-25 12:55] VITALS: BP 249/166; PULSE 123; RESP 18; TEMP 36.3; O2SAT 98; BMI 34.2
--- NOTE | 2021-08-25 13:16 | XRR_ITS ---
PROCEDURE INFORMATION: Exam: XR Abdomen Exam date and time: 08/25/2021 1:16 PM Age: 31 years old Clinical indication: Constipation and other: Abdominal pain; Patient HX: Severe abd pain; Has not had a bowel movement in 8 days. Hypertensive and tachycardic; Additional info: Abd papin TECHNIQUE: Imaging protocol: XR of the abdomen. Views: Frontal supine view of the abdomen. 1 View. COMPARISON: CT abdomen pelvis w con* [id number] 09/22/2020 11:22 AM FINDINGS: Gastrointestinal tract: There is multiple dilated bowel loops seen corresponding. Moderate ileus. Examination is negative for bowel obstruction. Intraperitoneal space: Metallic surgical clips are present in the right upper quadrant Bones/joints: Unremarkable. XR/XR KUB portable [id number] IMPRESSION: 1. Moderate ileus 2. Otherwise negative examination 3. Surgical clips right upper quadrant Radiation Dose CTDIVOL = (mGy): DLP = (mGy-cm)
[2021-08-25 13:53] VITALS: BP 245/197; PULSE 96; O2SAT 96
--- NOTE | 2021-08-25 13:55 | ED_ITS ---
HPI - Abdominal Pain General: Chief Complaint: Abdominal Pain Stated Complaint: Abdominal pain, no bowel movement for days Time Seen by Provider: 08/25/21 13:16 History of Present Illness: HPI narrative: 31-year-old female presents emergency room with severe abdominal pain and cramping. She states last 8 days she is not been able to have a bowel movement. She denies any vomiting but has had a lot of nausea and dry heaving. She does not feel like she has been able to get anything down which is why she not throwing anything out. She denies any medication melena hematemesis or coffee-ground emesis. Patient is also extremely hypertensive and tachycardic. She does have a history of methamphetamine use in the past. When questioned directly she admits to heavy recent methamphetamine use. MD elicited complaint: abdominal pain Pertinent past history: constipation Onset (ago): day(s) Pain Consistency: constant Location: Diffuse Quality: cramping Radiation: none Migration to: no migration Exacerbating factors: nothing Relieving factors: nothing Associated Symptoms: Reports bloating, constipation, GI cramping and poor appetite; Denies anorexia, belching, change in bowel habits, change in stool character, chills, coffee ground emesis, diarrhea, dyspepsia, dysuria, excessive flatus, fever(s), heartburn, hematochezia, hematuria, hematemesis, fecal incontinence, loose stools, melena, nausea, syncope and vomiting Related Data: Date of Last Menstrual Period: 09/05/20 Review of Systems Const: Denies: fever(s) or chills ENMT: Denies: throat pain, ear or mastoid pain, nasal discharge or nasal congestion Card: Denies: syncope Resp: Denies: dyspnea, productive cough or non-productive cough GI: Reports: constipation, bloating and GI cramping; Denies: nausea, vomiting, hematemesis, coffee ground emesis, heartburn, diarrhea, belching, excessive flatus, fecal incontinence, change in bowel habits , change in stool character, hematochezia or melena : Denies: dysuria or hematuria Skin/Breast: Denies: rash or pruritus PFSH ED PFSH: Medical History Hypertension Methamphetamine abuse Substance abuse Surgical History S/P cholecystectomy Status post biopsy of kidney Status post insertion of hemodialysis catheter Family History Other CAD (coronary artery disease) Hypertension Social History Smoking and tobacco status: current every day smoker cigarettes Packs smoked per day: 0.5 Alcohol intake: never Other details last substance use: Reports of prior methamphetamine abuse per prior documentation. Juan holcomb Household members: family and other Details: Lives with mother Housing: House Marital status: Single Current occupational status: unemployed Current gender identity: Female Female Reproductive History: Date of last menstrual period: 09/05/20 Physical Exam Const: COMMON NORMALS: no acute distress GENERAL APPEARANCE: cooperative and comfortable ORIENTATION/CONSCIOUSNESS: Yes awake, Yes oriented to person, Yes oriented to place and Yes oriented to time HENMT: COMMON NORMALS: normocephalic, atraumatic and hearing grossly normal bilaterally HEAD & SCALP: normocephalic and atraumatic Neck/C-Spine: COMMON NORMALS: no JVD Resp: COMMON NORMALS: normal respiratory effort, No retractions, No use of accessory muscles and clear to auscultation bilaterally AUSCULTATION: clear to auscultation bilaterally Cardio: COMMON NORMALS: no JVD, regular rate, regular rhythm and No murmurs present (Cardio) RATE: regular rate RHYTHM: regular rhythm GI: COMMON NORMALS: Soft to palpation and No hepatosplenomegaly present AUSCULTATION: Yes normoactive bowel sounds PALPATION: Yes Soft to palpation, No Tenderness to palpation present (GI), No Guarding due to palpation present (GI) and Yes No hepatosplenomegaly present Extremity: COMMON NORMALS: normal to inspection, capillary refill normal, no clubbing, cyanosis or edema, no calf tenderness and no pedal edema Neuro: SENSORIUM/ORIENTATION: Yes oriented to person, Yes oriented to place and Yes oriented to time Skin: COMMON NORMALS: no rashes or lesions noted GENERAL SKIN EXAM: no rashes or lesions noted Course Vital Signs: Vital signs: Vital Signs Temperature 97.4 F L 08/25/21 12:55 Pulse Rate 123 H 08/25/21 17:53 Respiratory Rate 18 08/25/21 12:55 Blood Pressure 217/144 08/25/21 17:53 Pulse Oximetry 98 08/25/21 17:53 MDM - Abdominal Pain MDM Narrative: Medical decision making narrative: Diffuse small bowel edema. Does not particularly look ischemic at this time but is suspicious for same. Dr. Eng was quite concerned with the findings. Her lactic acid is normal. I suspect she has significantly inhibited blood flow to her bowel due to methamphetamine use which would account for tachycardia and hypertension as well she does not appear to be septic at this time and there is no evidence of perforation of the bowel. However she is at very high risk for perforation of the bowel given this picture. Did discuss with her surgeon here we both agree we do not have the available facilities to manage this patient she is likely to rapidly worsen and require multiple specialties such as nephrology postsurgical ICU colorectal surgery and interventional radiology none of which are available at our facility. Discussed with the patient as well. 40 was started on Cipro and Flagyl we also started her on IV nitro to try to increase blood flow to her colon and small bowel. Dr. Castañeda also recommends that in patients such as this it is helpful to use start heparin. All of these interventions have been undertaken. Patient will be transferred to [facility] they have accepted and have available appropriate subspecialties. Lab Data: Labs: Lab Results 08/25/21 08/25/21 08/25/21 13:26 13:26 13:40 WBC Cancelled Corrected WBC Cancelled RBC Cancelled Hgb Cancelled Hct Cancelled MCV Cancelled MCH Cancelled MCHC Cancelled RDW Cancelled Plt Count Cancelled MPV Cancelled Gran % Cancelled Neut % (Auto) Cancelled Lymph % (Auto) Cancelled [place] % (Auto) Cancelled Eos % (Auto) Cancelled Baso % (Auto) Cancelled Neut # (Auto) Cancelled Lymph # (Auto) Cancelled [place] # (Auto) Cancelled Eos # (Auto) Cancelled Baso # (Auto) Cancelled Absolute Gran (aut o) Cancelled Nucleated RBC % (a uto) Cancelled Nucleated RBCs # Cancelled Specimen Type Sample Site ABG pH ABG pCO2 ABG pO2 ABG HCO3 ABG O2 Saturation ABG Base Excess Van Test A-a O2 Gradient Hematocrit Hgb O2 Saturation Carboxyhemoglobin Methemoglobin Total Hemoglobin Ionized Calcium O2 Delivery Device FiO2 Die Casting Machine Operator ID Sodium Cancelled Potassium Cancelled Chloride Cancelled Carbon Dioxide Cancelled Anion Gap Cancelled BUN Cancelled Creatinine Cancelled GFR Calculation Cancelled Glucose Cancelled Calculated Osmolal ity Cancelled Lactic Acid Calcium Cancelled Magnesium Total Bilirubin Cancelled AST Cancelled ALT Cancelled Alkaline Phosphata se Cancelled Creatine Kinase Total Protein Cancelled Albumin Cancelled Globulin Cancelled Lipase HCG, Qual Urine Color Urine Appearance Urine pH Ur Specific Gravit y Urine Protein Urine Glucose (UA) Urine Ketones Urine Blood Urine Nitrate Urine Bilirubin Urine Urobilinogen Ur Leukocyte Maddie ase Urine RBC Urine WBC Ur Squamous Epith Cells Amorphous Sediment Urine Bacteria Salicylates Urine Opiates Scre en Negative ng/mL ng /mL (Negative) Acetaminophen Ur Barbiturates Sc reen Negative ng/mL ng /mL (Negative) Ur Phencyclidine S crn Negative ng/mL ng /mL (Negative) Ur Amphetamines Sc reen Positive ng/mL H ng/mL (Negative) U Benzodiazepines Scrn Negative ng/mL ng /mL (Negative) Urine Cocaine Scre en Negative ng/mL ng /mL (Negative) U Marijuana (THC) Screen Negative ng/mL ng /mL (Negative) 08/25/21 08/25/21 08/25/21 13:45 14:40 14:40 WBC Corrected WBC RBC Hgb Hct MCV MCH MCHC RDW Plt Count MPV Gran % Neut % (Auto) Lymph % (Auto) [place] % (Auto) Eos % (Auto) Baso % (Auto) Neut # (Auto) Lymph # (Auto) [place] # (Auto) Eos # (Auto) Baso # (Auto) Absolute Gran (aut o) Nucleated RBC % (a uto) Nucleated RBCs # Specimen Type Sample Site ABG pH ABG pCO2 ABG pO2 ABG HCO3 ABG O2 Saturation ABG Base Excess Van Test A-a O2 Gradient Hematocrit Hgb O2 Saturation Carboxyhemoglobin Methemoglobin Total Hemoglobin Ionized Calcium O2 Delivery Device FiO2 Die Casting Machine Operator ID Sodium Potassium Chloride Carbon Dioxide Anion Gap BUN Creatinine GFR Calculation Glucose Calculated Osmolal ity Lactic Acid 0.7 mmol/L mmol/L (0.5-2.2) Calcium Magnesium 1.6 mg/dL L mg/dL (1.7-2.3) Total Bilirubin AST ALT Alkaline Phosphata se Creatine Kinase 86 U/L U/L (26-192) Total Protein Albumin Globulin Lipase 20 U/L U/L (13-60) HCG, Qual Urine Color Red (Yellow) Urine Appearance Cloudy (CLEAR) Urine pH 5 (5-7) Ur Specific Gravit y 1.020 (1.005-1.030) Urine Protein 3+ H (Negative) Urine Glucose (UA) Norm (Normal) Urine Ketones Negative (Negative) Urine Blood 3+ H (Negative) Urine Nitrate Negative (Negative) Urine Bilirubin 1+ H (Negative) Urine Urobilinogen Norm mg/dL mg/dL (Negative) Ur Leukocyte Maddie ase Trace H (Negative) Urine RBC Too numerous to c nt /hpf H /hpf (0-2) Urine WBC 0-4 /hpf H /hpf (0-5) Ur Squamous Epith Cells 0-4 /hpf H /hpf (0-5) Amorphous Sediment Not Reportable Urine Bacteria 4+ /hpf H /hpf (NONE) Salicylates Urine Opiates Scre en Acetaminophen Ur Barbiturates Sc reen Ur Phencyclidine S crn Ur Amphetamines Sc reen U Benzodiazepines Scrn Urine Cocaine Scre en U Marijuana (THC) Screen 08/25/21 08/25/21 08/25/21 14:40 14:40 14:40 WBC 21.1 10^3/uL H 10 ^3/uL (4.0-10.0) Corrected WBC RBC 5.84 10^6/uL H 10 ^6/uL (4.1-5.3) Hgb 17.8 g/dL H g/dL (11.5-15.3) Hct 51.6 % H % (37.0-47.0) MCV 88.4 fl fl (81-99) MCH 30.5 pg pg (28.0-34.0) MCHC 34.5 g/dL g/dL (30.0-36.0) RDW 13.2 % % (12.1-15.1) Plt Count 118 10^3/cmm L 10 ^3/cmm (130-400) MPV 12.4 fL H fL (7.4-10.4) Gran % Neut % (Auto) 83.4 % % Lymph % (Auto) 8.0 % % [place] % (Auto) 7.6 % % Eos % (Auto) 0.3 % % Baso % (Auto) 0.2 % % Neut # (Auto) 17.61 10^3/uL H 1 0^3/uL (1.8-7.7) Lymph # (Auto) 1.7 10^3/uL 10^3/ uL (0.8-4.8) [place] # (Auto) 1.6 10^3/uL H 10^ 3/uL (0.2-0.9) Eos # (Auto) 0.1 10^3/uL 10^3/ uL (0.0-0.8) Baso # (Auto) 0.1 10^3/uL 10^3/ uL (0.0-0.1) Absolute Gran (aut o) Nucleated RBC % (a uto) 0 % % Nucleated RBCs # 0.0 /100WBC /100W BC Specimen Type Sample Site ABG pH ABG pCO2 ABG pO2 ABG HCO3 ABG O2 Saturation ABG Base Excess Van Test A-a O2 Gradient Hematocrit Hgb O2 Saturation Carboxyhemoglobin Methemoglobin Total Hemoglobin Ionized Calcium O2 Delivery Device FiO2 Die Casting Machine Operator ID Sodium 133 mmol/L L mmol /L (136-145) Potassium 3.2 mmol/L L mmol /L (3.5-5.1) Chloride 98 mmol/L mmol/L (98-107) Carbon Dioxide 22 mmol/L mmol/L (22-29) Anion Gap 16.2 (5-19) BUN 34 mg/dL H mg/dL (6-20) Creatinine 2.0 mg/dL H mg/dL (0.5-0.9) GFR Calculation 29.1 mL/min L mL/ min (90-130) Glucose 104 mg/dL mg/dL (65-115) Calculated Osmolal ity 284 mOsm/kg L mOs m/kg (285-295) Lactic Acid Calcium 7.9 mg/dL L mg/dL (8.5-10.5) Magnesium Total Bilirubin 0.8 mg/dL mg/dL (0.15-1.2) AST 26 U/L U/L (0-32) ALT 23 U/L U/L (0-33) Alkaline Phosphata se 102 IU/L IU/L (35-105) Creatine Kinase Total Protein 5.4 g/dL L g/dL (6.6-8.7) Albumin 3.0 g/dL L g/dL (3.5-5.2) Globulin 2.4 g/dL g/dL (1.3-4.6) Lipase HCG, Qual Negative (Negative) Urine Color Urine Appearance Urine pH Ur Specific Gravit y Urine Protein Urine Glucose (UA) Urine Ketones Urine Blood Urine Nitrate Urine Bilirubin Urine Urobilinogen Ur Leukocyte Maddie ase Urine RBC Urine WBC Ur Squamous Epith Cells Amorphous Sediment Urine Bacteria Salicylates Urine Opiates Scre en Acetaminophen Ur Barbiturates Sc reen Ur Phencyclidine S crn Ur Amphetamines Sc reen U Benzodiazepines Scrn Urine Cocaine Scre en U Marijuana (THC) Screen 08/25/21 08/25/21 14:40 16:12 WBC Corrected WBC RBC Hgb Hct MCV MCH MCHC RDW Plt Count MPV Gran % Neut % (Auto) Lymph % (Auto) [place] % (Auto) Eos % (Auto) Baso % (Auto) Neut # (Auto) Lymph # (Auto) [place] # (Auto) Eos # (Auto) Baso # (Auto) Absolute Gran (aut o) Nucleated RBC % (a uto) Nucleated RBCs # Specimen Type Arterial Sample Site Radial, right ABG pH 7.45 (7.35-7.45) ABG pCO2 34.6 mmHg L mmHg (35-45) ABG pO2 80.4 mmHg mmHg (80.0-100.0) ABG HCO3 24.2 mmol/L mmol/ L (22-26) ABG O2 Saturation 95.2 ABG Base Excess 0.8 mmol/L mmol/L (-2.0-2.0) Van Test N/a A-a O2 Gradient 3.4 mmHg L mmHg (5-10) Hematocrit 54.9 % H % (37-47) Hgb O2 Saturation 93.6 % L % (95-100) Carboxyhemoglobin 1.0 %THgb %THgb (0.4-20.1) Methemoglobin 0.6 % % (0.4-1.5) Total Hemoglobin 17.9 g/dL H g/dL (12-16) Ionized Calcium 1.1 mmol/L mmol/L (1.1-1.4) O2 Delivery Device Room air FiO2 21.0 % % Die Casting Machine Operator ID Amh Sodium 132.0 mmol/L mmol /L (131-143) Potassium 3.2 mmol/L L mmol /L (3.5-5.0) Chloride Carbon Dioxide Anion Gap BUN Creatinine GFR Calculation Glucose 134.0 mg/dL H mg/ dL (70-115) Calculated Osmolal ity Lactic Acid Calcium Magnesium Total Bilirubin AST ALT Alkaline Phosphata se Creatine Kinase Total Protein Albumin Globulin Lipase HCG, Qual Urine Color Urine Appearance Urine pH Ur Specific Gravit y Urine Protein Urine Glucose (UA) Urine Ketones Urine Blood Urine Nitrate Urine Bilirubin Urine Urobilinogen Ur Leukocyte Maddie ase Urine RBC Urine WBC Ur Squamous Epith Cells Amorphous Sediment Urine Bacteria Salicylates < 0.3 mg/dL L mg/ dL (3-10) Urine Opiates Scre en Acetaminophen < 5.0 ug/mL L ug/ mL (10-30) Ur Barbiturates Sc reen Ur Phencyclidine S crn Ur Amphetamines Sc reen U Benzodiazepines Scrn Urine Cocaine Scre en U Marijuana (THC) Screen Discharge Plan Discharge Patient Disposition: Xfer Short-Term Hosp Clinical Impression: Acute diffuse ischemia of intestine, Methamphetamine abuse, Accelerated hypertension Referrals: Laurent Wolfe MD [Primary Care Provider] - Coding Level of Care Code ED Vice President Planning for Chg Fwd Exam Comprehensive
[2021-08-25] MEDS: amlodipine 10 mg Tablet PO (14:12)
[2021-08-25] MEDS: hyDRALAzine 20 mg/mL INJ 1 mL IVP (14:12)
--- NOTE | 2021-08-25 14:14 | CT_ITS ---
WS: [id number] CT ABDOMEN AND PELVIS WITH CONTRAST HISTORY: Severe abdominal pain. TECHNIQUE: Imaging performed of the abdomen and pelvis with IV contrast. Single phase imaging of the abdomen. Coronal and sagittal reformats are submitted. All CT scans at [facility] use at [facility] one of these dose optimization techniques: automated exposure control; mA and/or kV adjustment per patient size (includes targeted exams where dose is matched to clinical indication); or iterative re construction. IV CONTRAST: Visipaque 320; 95 mL IV. Oral contrast: No DLP: 1774.29 mGy.cm COMPARISON: 09/22/2020 Lower thorax: Moderate to large circumferential pericardial effusion measures up to 18 mm in diameter . LEFT ventricular hypertrophy. Small ventricular cavity. Lungs are clear. No hiatal hernia. Liver/biliary system: Normal size with no intrahepatic dilatation. Gallbladder: Status post cholecystectomy. Pancreas: Pancreatic duct and the common bile duct are normal. There is cystic mass measuring 13 mm n ear the uncinate process which has not been present on the prior studies. Spleen: Normal size spleen. No mass or infarct. Adrenal glands: Normal. Right kidney: Normal. Left kidney: Normal. Aorta: Normal. Small caliber flattened IVC. Lymphadenopathy: None. Free fluid: Small amount of free fluid within the abdomen and pelvis. Most significant amount of laye ring in the pelvis. GI tract: Abnormal appearance of the GI tract. Fluid distended stomach. There are numerous small cherie l loops greatest within the LEFT abdomen that are abnormal. Small bowel loops are hyperemic. Fluid-fi lled small bowel loops with mucosal thickening and edema. Colon is air filled and the distal colon is collapsed. The appendix is not definitely identified. Abdominal wall: Mild soft tissue anasarca. Pelvis: Free fluid in the pelvis. Small bowel loops are matted together and fluid-filled. Bones: Unremarkable. CT/CT abdomen pelvis w con* [id number] IMPRESSION: 1. Diffusely abnormal small bowel. Fluid-filled loops of small bowel with muco yvette thickening and there is also some very diffuse hyperemia. Suspicious for hy perperfusion complex/shock bowel and impending ischemic disease. No definite fr ee air but small foci of free air cannot be excluded. 2. Small amount of ascites of the abdomen and pelvis. 3. Moderate circumferential pericardial effusion. Notified [place] DO at 08/25/2021 3:46 PM.
[2021-08-25 14:19] LABS: Urine Appearance Cloudy (CLEAR)
[2021-08-25 14:20] LABS: Add Urine Culture? Yes; Add Urine Microscopic? YES; Bacteria Urine 4+ /hpf; Bilirubin Urine 1+ (Negative); Blood Urine 3+ (Negative); Glucose Urine UA Norm (Normal); Ketones Urine Negative (Negative); Leukocyte Esterase Urine Trace (Negative); Nitrate Urine Negative (Negative); Protein Urine 3+ (Negative); RBC Urine TOO NUMEROUS TO CNT /hpf (0-2); Squamous Epithelial Cell Urine 0-4 /hpf (0-5); Urine Color Red (Yellow); Urobilinogen Urine Norm (Negative); WBC Urine 0-4 /hpf (0-5); pH Urine 5 (5-7)
[2021-08-25] MEDS: ondansetron 2 mg/ML SDV 2 mL 4 MG IVP (14:28)
[2021-08-25 14:44] VITALS: BP 217/157; PULSE 130; O2SAT 98
[2021-08-25 15:02] LABS: Basophils # 0.1 10^3/uL (0.0-0.1); Basophils % 0.2 %; Eosinophils # 0.1 10^3/uL (0.0-0.8); Eosinophils % 0.3 %; Hematocrit 51.6 % (37.0-47.0); Hemoglobin 17.8 g/dL (11.5-15.3); Lymphocytes # 1.7 10^3/uL (0.8-4.8); Mean Corpuscular HGB Conc 34.5 g/dL (30.0-36.0); Mean Corpuscular Hemoglobin 30.5 pg (28.0-34.0); Mean Corpuscular Volume 88.4 fl (81-99); Mean Platelet Volume 12.4 fL (7.4-10.4); Monocytes # 1.6 10^3/uL (0.2-0.9); Monocytes % 7.6 %; Neutrophils # 17.61 10^3/uL (1.8-7.7); Neutrophils % 83.4 %; Nucleated Red Blood Cells % 0 %; Platelet Count 118 10^3/cmm (130-400); Red Blood Count 5.84 10^6/uL (4.1-5.3); Red Cell Distribution Width 13.2 % (12.1-15.1); White Blood Count 21.1 10^3/uL (4.0-10.0)
[2021-08-25 15:08] LABS: HCG, Serum Qual Negative (Negative)
[2021-08-25 15:15] LABS: Alanine Aminotransferase 23 U/L (0-33); Alkaline Phosphatase 102 IU/L (35-105); Anion Gap 16.2 (5-19); Aspartate Amino Transferase 26 U/L (0-32); Blood Urea Nitrogen 34 mg/dL (6-20); Calcium 7.9 mg/dL (8.5-10.5); Carbon Dioxide 22 mmol/L (22-29); Chloride 98 mmol/L (98-107); Creatine Phosphokinase 86 U/L (26-192); Globulin 2.4 g/dL (1.3-4.6); Glomerular Filtration Rate 29.1 mL/min (90-130); Glucose 104 mg/dL (65-115); Lactic Sepsis W/Reflex 0.7 mmol/L (0.5-2.2); Lipase 20 U/L (13-60); Magnesium 1.6 mg/dL (1.7-2.3); Osmolality Calculated 284 mOsm/kg (285-295); Potassium 3.2 mmol/L (3.5-5.1); Sodium 133 mmol/L (136-145); Total Bilirubin 0.8 mg/dL (0.15-1.2); Total Protein 5.4 g/dL (6.6-8.7)
[2021-08-25] MEDS: iodixanol 320 mg/mL 100mL Btl IV (15:18)
[2021-08-25 16:23] LABS: ABG PCO2 34.6 mmHg (35-45); ABG PH Result 7.45 (7.35-7.45); Alveolar-Arterial Oxygen Gradi 3.4 mmHg (5-10); Arterial Blood Gas Hematocrit 54.9 % (37-47); Base Excess ABG 0.8 mmol/L (-2.0-2.0); Blood Gas Operator Identificat AMH; Blood Gas Sample Site Radial, right; Blood Gas Sample Type Arterial; HCO3 ABG 24.2 mmol/L (22-26); HGB O2 Sat 93.6 % (95-100); Ionized Calcium Level - ABG 1.1 mmol/L (1.1-1.4); Methemoglobin 0.6 % (0.4-1.5); Oxygen Device ROOM AIR; Oxygen Saturation ABG 95.2; PO2 ABG 80.4 mmHg (80.0-100.0); Potassium Level - ABG 3.2 mmol/L (3.5-5.0); Total Hemoglobin 17.9 g/dL (12-16)
[2021-08-25 16:25] LABS: Acetaminophen < 5.0 ug/mL (10-30); Salicylate < 0.3 mg/dL (3-10)
[2021-08-25] MEDS: heparin 5,000 unit/mL INJ 1 mL IV (16:58)
[2021-08-25] MEDS: sodium chloride 0.9% 1,000 ML 999 ML IV (17:46)
[2021-08-25] MEDS: ciprofloxacin 400 MG/200 ML PREMIX 200 MG IV (17:46)
[2021-08-25] MEDS: LORazepam 2 mg/mL INJ 1 mL 1 MG IVP (17:46)
[2021-08-25] MEDS: metroNIDAZOLE IV 500 MG/100 ML PREMIX 100 MG IV (17:46)
[2021-08-25 17:53] VITALS: BP 217/144; PULSE 123; O2SAT 98
[2021-08-25 18:03] LABS: Amphetamines Screen Urine Positive (Negative); Barbiturates Screen Urine Negative (Negative); Benzodiazepines Screen Urine Negative (Negative); Cocaine Screen Urine Negative (Negative); Opiate Screen Urine Negative (Negative); PCP Screen Urine Negative (Negative); THC Screen Urine Negative (Negative)
--- NOTE | 2021-09-01 11:44 | PC.NURSE ---
Heprin and Nitro started in ER. Remaining IV medications (Cipro, Flagyl, and NS) sent with AirEv[facility].
== END 2021-08-25 17:56 | disposition short-term general hospital (02) ==
PROVIDERS: Emergency Provider Family Medicine; PCP Family Medicine
DX: K55.052 Diffuse acute (reversible) ischemia of intestine, part unspecified (principal); F15.10 Other stimulant abuse, uncomplicated; I10 Essential (primary) hypertension; F17.210 Nicotine dependence, cigarettes, uncomplicated
CPT/HCPCS: 36600; 51702; 74018; 74177; 80051; 80053; 80306; 80307; 81001; 82330; 82550; 82805; 83605; 83690; 83735; 84703; 85025; 87077; 87086; 87186; 96365; 96375; 99285; 99291; J0360; J0744; J1644; J2060; J2405; J7030; Q9967; S0030

== ENCOUNTER 2021-10-07 17:17 | Emergency (ER) | payer MEDICARE, MEDICAID, SELFPAY ==
[2021-10-07] VITALS (12 sets, daily range): BP systolic 167–235; BP diastolic 102–140; PULSE 82–107; RESP 18–20; TEMP 36.7–37.1; O2SAT 95–99; BMI 34.7
--- NOTE | 2021-10-07 17:53 | CTR_ITS ---
PROCEDURE INFORMATION: Exam: CT Head Without Contrast Exam date and time: 10/07/2021 5:53 PM Age: 31 years old Clinical indication: Pain; Headache; Migraine; Additional info: Severe migraine TECHNIQUE: Imaging protocol: Computed tomography of the head without contrast. Radiation optimization: All CT scans at this facility use at least one of these dose optimization techniques: automated exposure control; mA and/or kV adjustment per patient size (includes targeted exams where dose is matched to clinical indication); or iterative reconstruction. COMPARISON: No relevant prior studies available. RADIATION DOSE METRICS: Total DLP (mGy-cm): 1445.09 FINDINGS: Brain: Several periventricular and scattered white matter hypodense foci are noted. No hemorrhage or evidence of acute infarction. Cerebral ventricles: No ventriculomegaly. Paranasal sinuses: Mild left frontal sinusitis is appreciated. Mastoid air cells: Visualized mastoid air cells are well aerated. Bones/joints: Unremarkable. No acute fracture. Soft tissues: Unremarkable. CT/CT head wo con* [id number] IMPRESSION: 1. No acute intracranial abnormality. 2. White matter hypodensities may be secondary to chronic microvascular ischemic changes (atypical for patient's age), or possibly demyelinating process. Correlate clinically. Nonemergent MRI may allow further assessment. 3. Mild left frontal sinusitis.
--- NOTE | 2021-10-07 17:54 | ECG_ITS ---
[facility] Test Date: 2021-10-07 Pat Name: Debo Little Department: Room: Gender: Female Inside Sales Recruiter: : 1990 Requested By: Cristino Salazar Order Number: [id number] Candida MD: Nahid Ervin M.D. Measurements Intervals [place] Rate: 92 P: 60 OK: 144 QRS: 18 QRSD: 100 T: 136 QT: 406 QTc: 505 Interpretive Statements SINUS RHYTHM POSSIBLE LEFT ATRIAL ENLARGEMENT [-0.1mV P-WAVE IN V1/V2] MODERATE T-WAVE ABNORMALITY, CONSIDER LATERAL ISCHEMIA [-0.1+ mV T-WAVE IN I/aVL/V5/V6] No previous ECG available for comparison Electronically Signed On 10-08-2021 8:46:19 FACTORY LAY OUT ENGINEER by Nahid Ervin M.D. [id number]
--- NOTE | 2021-10-07 18:00 | ED_ITS ---
HPI - Headache General: Chief Complaint: Headache Stated Complaint: SEVERE H/A, THROWING UP Time Seen by Provider: 10/07/21 17:54 History of Present Illness: HPI Narrative: Patient is a 31-year-old female comes to the ED with a severe headache. Past medical history of hypertension, methamphetamine abuse, CKD, hep C and cardiomyopathy. Patient does take blood pressure medications and took her doses today like usual. Patient says headache started approximately 4 days ago. She denies any history of migraines. She is having nausea and vomiting, photophobia and some blurry vision. Migraine is rated a 10 out of 10 she states it feels like it is behind her eyes bilaterally. Denies any numbness tingling or weakness to 1 side of her body or face. 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 Pain scale (0-10): 10 Associated symptoms: Reports nausea and vomiting; Deny chest pain, fever(s) or rash Review of Systems Const: Denies: fever(s), chills or fatigue Eyes: Reports: blurry vision (Bilateral) and photophobia; Denies: change in vision or eye discomfort ENMT: Denies: throat pain, odynophagia, nasal discharge or nasal congestion Card: Denies: chest pain, palpitations, edema, swelling of feet/ankles, dyspnea on exertion or orthopnea Resp: Denies: dyspnea, productive cough or non-productive cough GI: Reports: nausea and vomiting; Denies: abdominal pain, diarrhea, constipation or hematochezia : Denies: flank pain, dysuria or hematuria Musc: Denies: neck pain, back pain or extremity swelling Skin/Breast: Denies: rash or new lesions Neuro: Reports: headache(s); Denies: numbness in extremities or weakness in extremities PFSH ED PFSH: Medical History Hypertension Methamphetamine abuse Substance abuse Surgical History S/P cholecystectomy Status post biopsy of kidney Status post insertion of hemodialysis catheter Family History Other CAD (coronary artery disease) Hypertension Social History Smoking and tobacco status: current every day smoker cigarettes Packs smoked per day: 0.5 Alcohol intake: never Other details last substance use: Reports of prior methamphetamine abuse per prior documentation. Juan holcomb Household members: family and other Details: Lives with mother Housing: House Marital status: Single Current occupational status: unemployed Current gender identity: Female Female Reproductive History: Date of last menstrual period: 09/05/20 Physical Exam Const: COMMON NORMALS: patient oriented x3 and alert GENERAL APPEARANCE: cooperative and in distress (Crying and saying her head hurts.) HENMT: COMMON NORMALS: normocephalic HEAD & SCALP: normocephalic MOUTH: Normal oral and palatal mucosa present THROAT: posterior oropharynx normal and uvula midline Eye: COMMON NORMALS: Equal, round and reactive pupils present, EOMs intact bilaterally and conjunctivae normal CONJUNCTIVA: Yes conjunctivae normal P UPIL: Yes Equal, round and reactive pupils present Neck/C-Spine: COMMON NORMALS: supple GENERAL: Yes normal visual inspection Resp: COMMON NORMALS: normal respiratory effort, No retractions, No use of accessory muscles and clear to auscultation bilaterally AUSCULTATION: clear to auscultation bilaterally Cardio: COMMON NORMALS: regular rate, regular rhythm, S1 normal heart sound present, S2 normal heart sound present, No gallops present (Cardio), No clicks present (Cardio), No murmurs present (Cardio) and Peripheral pulses 2+ throughout RATE: regular rate RHYTHM: regular rhythm HEART SOUNDS: S1 normal heart sound present and S2 normal heart sound present PERIPHERAL PULSES: Peripheral pulses 2+ throughout GI: COMMON NORMALS: Normal to inspection, nondistended, normoactive bowel sounds present, Soft to palpation, non-tender and no masses PALPATION: Yes Soft to palpation : COMMON NORMALS: Yes no CVA tenderness BLADDER/KIDNEY EXAM: Yes no CVA tenderness Back/Pelvis: COMMON NORMALS: no CVA tenderness Extremity: COMMON NORMALS: normal to inspection Neuro: COMMON NORMALS: patient oriented x3, CN's II-XII intact bilaterally, moves all extremities, no focal motor deficits and no sensory deficits noted SENSORIUM/ORIENTATION: Yes alert SENSORY EXAM: Yes extremities (intact) MOTOR EXAM: 5/5 motor strength present throughout Skin: GENERAL SKIN EXAM: dry skin Course Reevaluation(s): Reevaluation #1: After patient received IV migraine medications she said her symptoms improved. She says her migraine has improved a lot. Time: 19:45 Reevaluation #2: Patient's blood pressures remained elevated in spite of getting to 20 mg doses of labetalol while here in the ED. Her lowest blood pressure was 206/117 and patient says that is close to her normal baseline. Time: 22:46 Vital Signs: Vital signs: Vital Signs Temperature 98.4 F 10/07/21 23:46 Pulse Rate 107 H 10/07/21 23:46 Respiratory Rate 18 10/07/21 23:46 Blood Pressure 167/105 10/07/21 23:46 Pulse Oximetry 96 10/07/21 23:46 MDM - Headache MDM Narrative: Medical decision making narrative: Patient is a 31-year-old female comes to the ED with a migraine. Upon arrival patient had a blood pressure of 226/115. Patient is a past medical history of hypertension, CKD, methamphetamine abuse and hepatitis C. Patient has multiple blood pressure medications that she takes daily and says she has been taking them as prescribed. Denies any chest pain, shortness of breath or palpitations. Patient does not have a history of migraines. current headache symptoms of nausea/vomiting, photophobia. Exam benign. No neuro deficits. Talked with patient about her blood pressure and she said it is normally high and for her to be in the low 200s for a systolic is her normal baseline. Patient also said that she has an appointment with her supervisor stage carpentry tomorrow. CT of head was done showed no acute findings. CBC was unremarkable. Potassium 3.3 and she was given some p.o. potassium in the ED. Her creatinine was 2.5 but that seems to be at her normal creatinine level for her given her CKD history. After patient was given IV migraine medications her headache improved greatly and she felt a lot better. Her blood pressure was still elevated so patient was given 2 doses of 20 mg labetalol IV and then given p.o. dose of clonidine. Her blood pressure went down to 167/105 right before discharge. Patient diagnosed with migraine and hypertensive urgency. She has an appointment with her supervisor stage carpentry tomorrow and I told her to make sure she discusses blood pressure medication management with them. Return to ED precautions given. Patient understood and agree with plan. Lab Data: Attestation: I reviewed the patient's lab results. Labs: Lab Results 10/07/21 10/07/21 10/07/21 19:15 19:15 19:15 WBC 9.4 10^3/uL 10^3/ uL (4.0-10.0) RBC 4.50 10^6/uL 10^6 /uL (4.1-5.3) Hgb 13.5 g/dL g/dL (11.5-15.3) Hct 40.7 % % (37.0-47.0) MCV 90.4 fl fl (81-99) MCH 30.0 pg pg (28.0-34.0) MCHC 33.2 g/dL g/dL (30.0-36.0) RDW 12.6 % % (12.1-15.1) Plt Count 146 10^3/cmm 10^3 /cmm (130-400) MPV 11.6 fL H fL (7.4-10.4) Neut % (Auto) 80.9 % % Lymph % (Auto) 11.2 % % [place] % (Auto) 5.6 % % Eos % (Auto) 1.5 % % Baso % (Auto) 0.4 % % Neut # (Auto) 7.60 10^3/uL 10^3 /uL (1.8-7.7) Lymph # (Auto) 1.1 10^3/uL 10^3/ uL (0.8-4.8) [place] # (Auto) 0.5 10^3/uL 10^3/ uL (0.2-0.9) Eos # (Auto) 0.1 10^3/uL 10^3/ uL (0.0-0.8) Baso # (Auto) 0.0 10^3/uL 10^3/ uL (0.0-0.1) Nucleated RBC % (a uto) 0 % % Nucleated RBCs # 0.0 /100WBC /100W BC Sodium 137 mmol/L mmol/L (136-145) Potassium 3.3 mmol/L L mmol /L (3.5-5.1) Chloride 101 mmol/L mmol/L (98-107) Carbon Dioxide 19 mmol/L L mmol/ L (22-29) Anion Gap 20.3 H (5-19) BUN 22 mg/dL H mg/dL (6-20) Creatinine 2.5 mg/dL H mg/dL (0.5-0.9) GFR Calculation 22.5 mL/min L mL/ min (90-130) Glucose 94 mg/dL mg/dL (65-115) Calculated Osmolal ity 287 mOsm/kg mOsm/ kg (285-295) Calcium 8.7 mg/dL mg/dL (8.5-10.5) Total Bilirubin 0.6 mg/dL mg/dL (0.15-1.2) AST 26 U/L U/L (0-32) ALT 22 U/L U/L (0-33) Alkaline Phosphata se 103 IU/L IU/L (35-105) Total Protein 7.5 g/dL g/dL (6.6-8.7) Albumin 3.9 g/dL g/dL (3.5-5.2) Globulin 3.6 g/dL g/dL (1.3-4.6) HCG, Qual Negative (Negative) Imaging Data^: CT Head: Attestation: I personally reviewed and interpreted this imaging study as follows: Radiologist's impression: [place] [address] CT Scan Report Signed Patient: Debo Little Unit #: [id number] : 1990 Age/Sex: 31 / F ADM Date: 10/07/21 Loc: ER Room/Bed: Attending Dr: Ordering Provider/Ordering MD: Cristino Salazar Date of Service: 10/07/21 Procedure(s): CT head wo con* [id number] Accession Number(s): [id number] Report Number: [id number] PROCEDURE INFORMATION: Exam: CT Head Without Contrast Exam date and time: 10/07/2021 5:53 PM Age: 31 years old Clinical indication: Pain; Headache; Migraine; Additional info: Severe migraine TECHNIQUE: Imaging protocol: Computed tomography of the head without contrast. Radiation optimization: All CT scans at this facility use at least one of these dose optimization techniques: automated exposure control; mA and/or kV adjustment per patient size (includes targeted exams where dose is matched to clinical indication); or iterative reconstruction. COMPARISON: No relevant prior studies available. RADIATION DOSE METRICS: Total DLP (mGy-cm): 1445.09 FINDINGS: Brain: Several periventricular and scattered white matter hypodense foci are noted. No hemorrhage or evidence of acute infarction. Cerebral ventricles: No ventriculomegaly. Paranasal sinuses: Mild left frontal sinusitis is appreciated. Mastoid air cells: Visualized mastoid air cells are well aerated. Bones/joints: Unremarkable. No acute fracture. Soft tissues: Unremarkable. CT/CT head wo con* [id number] IMPRESSION: 1. No acute intracranial abnormality. 2. White matter hypodensities may be secondary to chronic microvascular ischemic changes (atypical for patient's age), or possibly demyelinating process. Correlate clinically. Nonemergent MRI may allow further assessment. 3. Mild left frontal sinusitis. Dictated By: Nikita Burns MD Signed By: Nikita Burns MD Signed Date/Time: 10/07/211902 DD/ 52 Discharge Plan Discharge Patient Disposition: Home Clinical Impression: Hypertensive urgency Migraine Qualifiers: Migraine type: without aura Status migrainosus presence: without status migrainosus Intractability: not intractable Qualified Code(s): G43.009 - Migraine without aura, not intractable, without status migrainosus Condition: Stable Prescriptions: No Action amlodipine 10 mg tablet 10 mg PO DAILY RF: 0 minoxidil 10 mg tablet 10 mg PO BID RF: 0 furosemide 20 mg tablet 20 mg PO . DIRECTED RF: 0 labetalol 100 mg tablet 300 mg PO BID RF: 0 dicyclomine 10 mg capsule 10 mg PO TID PRN (Reason: Cramps) RF: 0 hydralazine 50 mg tablet 150 mg PO TID RF: 0 Discharge Orders: Discharge ED (Routine); Ordered 10/07/21 Ordered By: Cristino Salazar Referrals: Laurent Wolfe MD [Primary Care Provider] - Discharge Diet: Regular Discharge Activity: Resume usual activity Patient Instructions: Migraine Headache (ED) Activity Restrictions/Additional Instructions: Follow-up with medical provider as directed. Go to your scheduled appointment with the supervisor stage carpentry tomorrow for further evaluation and discuss blood pressure medication management. Continue taking all home medications as previously prescribed. Return to the ER or your medical provider if condition worsens. Please read and understand discharge instructions. Thank you for choosing [facility] for your healthcare needs today. Please realize this is an emergency room and that we are providing you with a medical screening exam and this may not be complete and all inclusive of all the testing and or work up that you may need to determine your ailment or severity of your illness. It is very important that you follow up as instructed or that you return to the Emergency Department should you have concerns or if your condition changes or worsens in any way. Coding Level of Care Code ED Explosive Expert for Guillermo Puente Exam Comprehensive
[2021-10-07] MEDS: diphenhydrAMINE 50 mg/mL SDV 1mL 25 MG IVP (19:05)
[2021-10-07] MEDS: metoclopramide 5 mg/mL SDV 2 mL 10 MG IVP (19:06)
[2021-10-07] MEDS: ketorolac 30 mg/mL INJ IVP (19:06)
[2021-10-07] MEDS: dexamethasone 10 mg/mL INJ IVP (19:06)
[2021-10-07] MEDS: sodium chloride 0.9% 500 ML 999 ML IV (19:07)
[2021-10-07 19:32] LABS: Basophils % 0.4 %; Eosinophils # 0.1 10^3/uL (0.0-0.8); Eosinophils % 1.5 %; Hematocrit 40.7 % (37.0-47.0); Hemoglobin 13.5 g/dL (11.5-15.3); Lymphocytes # 1.1 10^3/uL (0.8-4.8); Lymphocytes % 11.2 %; Mean Corpuscular HGB Conc 33.2 g/dL (30.0-36.0); Mean Corpuscular Volume 90.4 fl (81-99); Mean Platelet Volume 11.6 fL (7.4-10.4); Monocytes # 0.5 10^3/uL (0.2-0.9); Monocytes % 5.6 %; Neutrophils % 80.9 %; Nucleated Red Blood Cells % 0 %; Platelet Count 146 10^3/cmm (130-400); Red Cell Distribution Width 12.6 % (12.1-15.1); White Blood Count 9.4 10^3/uL (4.0-10.0)
[2021-10-07 19:51] LABS: Alanine Aminotransferase 22 U/L (0-33); Albumin Level 3.9 g/dL (3.5-5.2); Alkaline Phosphatase 103 IU/L (35-105); Anion Gap 20.3 (5-19); Aspartate Amino Transferase 26 U/L (0-32); Blood Urea Nitrogen 22 mg/dL (6-20); Calcium 8.7 mg/dL (8.5-10.5); Carbon Dioxide 19 mmol/L (22-29); Chloride 101 mmol/L (98-107); Globulin 3.6 g/dL (1.3-4.6); Glomerular Filtration Rate 22.5 mL/min (90-130); Glucose 94 mg/dL (65-115); Osmolality Calculated 287 mOsm/kg (285-295); Potassium 3.3 mmol/L (3.5-5.1); Sodium 137 mmol/L (136-145); Total Bilirubin 0.6 mg/dL (0.15-1.2); Total Protein 7.5 g/dL (6.6-8.7)
[2021-10-07 19:55] LABS: HCG, Serum Qual Negative (Negative)
[2021-10-07] MEDS: potassium chloride ER 20 mEq Tablet PO (20:34)
[2021-10-07] MEDS: labetalol 5 mg/mL SDV 20mL 20 MG IVP ×2 (20:55→21:53)
--- NOTE | 2021-10-07 20:56 | PC.NURSE ---
patient sitting comfortably in bed sleeping at this time. patient with intermittent episode of opening eyes and then going back to sleep. patient alert to verbal stimuli. patient c/o worsening headache 8/10 on scale. patient states taking blood pressure medication at home this AM. patient in no obvious distress.
[2021-10-07] MEDS: cloNIDine 0.1 mg Tablet PO (22:54)
== END 2021-10-07 23:32 | disposition home or self-care (01) ==
PROVIDERS: Emergency Provider Physician Assistant; PCP Family Medicine
DX: G43.009 Migraine without aura, not intractable, without status migrainosus (principal); I16.0 Hypertensive urgency; I10 Essential (primary) hypertension; F17.210 Nicotine dependence, cigarettes, uncomplicated
CPT/HCPCS: 70450; 80053; 84703; 85025; 93005; 96361; 96374; 96375; 96376; 99284; J1100; J1200; J1885; J2765; J3490; J7040

== ENCOUNTER 2021-11-09 12:21 | Inpatient (IN) | payer MEDICARE, MEDICAID, SELFPAY ==
[2021-11-09] VITALS (7 sets, daily range): BP systolic 133–250; BP diastolic 67–154; PULSE 86–114; RESP 16–28; TEMP 36.8–38.2; O2SAT 90–97; BMI 37.8
--- NOTE | 2021-11-09 13:01 | CT_ITS ---
WS: [id number] CT CHEST, ABDOMEN AND PELVIS WITHOUT CONTRAST. HISTORY: hx of ischemic bowel TECHNIQUE: Contiguous 5 mm axial imaging performed through the chest, abdomen and pelvis without IV c ontrast, oral contrast has not been provided. Coronal and sagittal reformats chest. Coronal and sagit nida reformats through the abdomen and pelvis. All CT scans at [facility] use at least one of these dose optimization techniques: automated exposure control; mA and/or kV adjustment per patient s ize (includes targeted exams where dose is matched to clinical indication); or iterative reconstructi on. CONTRAST: None DLP: 1960.75 mGy.cm COMPARISON: 08/25/2021 Quality of this examination is significantly compromised by fluid overload and lack of contrast. Chest CT: Pulmonary edema. Perihilar dense opacifications throughout the RIGHT lung with mild sparing of the periphery. Lesser opacifications are scattered within the LEFT lung. There is mild edema and fluid overload. No pneumothorax. Very small layering RIGHT pleural effusion. Heart is markedly enlarg ed with a large pericardial effusion which has increased in size. This study is inadequate to exclude adenopathy. Pulmonary artery and aorta cannot be evaluated. Abdomen CT: There is extensive anasarca and soft tissue edema. Prior cholecystectomy. Visualized live r and spleen and pancreas, kidneys and adrenals are significantly limited. There is significant motio n artifact. Small focal areas of free air, lymph nodes or abscess would be obscured. Again noted is a cystic area previously described pancreatic head measuring 2.0 cm which is increased in size. Pelvic CT: Extensive anasarca. Urinary bladder is well distended. GI tract is not well evaluated. Mild thoracolumbar scoliosis. CT/CT chest abd pel wo con IMPRESSION: 1. Quality of this examination is significantly limited by motion artifact, la ck of contrast and body habitus. 2. Extensive soft tissue anasarca. 3. Marked cardiomegaly with a large pericardial effusion which has increased s adi the prior study. 4. Extensive opacification throughout the RIGHT lung may be due to pneumonia o r edema. Lesser opacifications in the LEFT lung. 5. Prior cholecystectomy. Otherwise significantly limited evaluation of the ab dominal pelvic structures.
--- NOTE | 2021-11-09 13:04 | W.ED.GENADLT ---
Documented by User: MARGIE Mcfadden 11/09/21 15:18 HPI - General Adult General: Chief complaint: ER Hold Stated complaint: HEART Time Seen by Provider: 11/09/21 13:01 History of Present Illness: HPI narrative: Patient states her bowels have moved for 6 days. She was seen cardiology for follow-up today. He found out she is hypertensive. Patient has not taking any medications today. Patient states she feels tired and says she has a hard time taking deep breaths because her bowels have not moved. She denies fever chills are cough. States that she has not done methamphetamines in a long time nor does drink alcohol anymore. Patient says he feels tired. Dr. Montgomery office sent over. Patient has had a 23 pound weight gain over the last few weeks. Has history of CHF cardiomyopathy hepatitis C ischemic bowel. [facility] ED PFSH: Medical History CHF (congestive heart failure), NYHA class III CKD (chronic kidney disease) Hypertension Methamphetamine abuse Substance abuse Surgical History S/P cholecystectomy Status post biopsy of kidney Status post insertion of hemodialysis catheter Family History Other CAD (coronary artery disease) Hypertension Social History Alcohol intake: never Other details last substance use: Reports of prior methamphetamine abuse per prior documentation. Juan holcomb Household members: family and other Details: Lives with mother Housing: House Marital status: Single Current occupational status: unemployed Current gender identity: Female Female Reproductive History: Date of last menstrual period: 09/05/20 Course Vital Signs: Vital signs: Vital Signs Temperature 100.7 F H 11/09/21 16:41 Pulse Rate 86 11/09/21 20:45 Respiratory Rate 16 11/09/21 20:45 Blood Pressure 133/67 11/09/21 20:45 Pulse Oximetry 95 11/09/21 20:45 MDM - General Adult MDM Narrative Medical decision making narrative: Patient presents from Dr. English's office with hypertension and history no bowel movement last 6 days. Patient does have some shortness of breath at times. Patient responds to questions appropriately. Laboratory studies CT were done showed large pericardial effusion increased BNP. Patient placed on oxygen due to sats in the 88 to 90% range while she was sleeping. Sats improved with waking. Dr. Romero notified of findings and patient transferred to his care. Lab Data Result diagrams: 11/10/21 03:23 11/10/21 03:23 Labs: Lab Results 11/09/21 11/09/21 11/09/21 13:30 13:30 13:30 WBC 13.0 10^3/uL H 10^3/uL (4.0-10.0) RBC 3.70 10^6/uL L 10^6/uL (4.1-5.3) Hgb 10.8 g/dL L g/dL (11.5-15.3) Hct 33.1 % L % (37.0-47.0) MCV 89.5 fl fl (81-99) MCH 29.2 pg pg (28.0-34.0) MCHC 32.6 g/dL g/dL (30.0-36.0) RDW 13.2 % % (12.1-15.1) Plt Count 236 10^3/cmm 10^3/cmm (130-400) MPV 11.2 fL H fL (7.4-10.4) Neut % (Auto) 78.2 % % Lymph % (Auto) 8.9 % % [place] % (Auto) 10.6 % % Eos % (Auto) 1.2 % % Baso % (Auto) 0.4 % % Neut # (Auto) 10.16 10^3/uL H 10^3/uL (1.8-7.7) Lymph # (Auto) 1.2 10^3/uL 10^3/uL (0.8-4.8) [place] # (Auto) 1.4 10^3/uL H 10^3/uL (0.2-0.9) Eos # (Auto) 0.2 10^3/uL 10^3/uL (0.0-0.8) Baso # (Auto) 0.1 10^3/uL 10^3/uL (0.0-0.1) Nucleated RBC % (auto) 0 % % Nucleated RBCs # 0.0 /100WBC /100WBC PT 13.20 SECONDS SECONDS (12.1-14.9) INR 0.97 (0.8-1.2) Sodium 137 mmol/L mmol/L (136-145) Potassium 3.3 mmol/L L mmol/L (3.5-5.1) Chloride 103 mmol/L mmol/L (98-107) Carbon Dioxide 19 mmol/L L mmol/L (22-29) Anion Gap 18.3 (5-19) BUN 30 mg/dL H mg/dL (6-20) Creatinine 2.8 mg/dL H mg/dL (0.5-0.9) GFR Calculation 19.7 mL/min L mL/min (90-130) Glucose 88 mg/dL mg/dL (65-115) Calculated Osmolality 290 mOsm/kg mOsm/kg (285-295) Lactate Calcium 8.3 mg/dL L mg/dL (8.5-10.5) Total Bilirubin 0.6 mg/dL mg/dL (0.15-1.2) AST 25 U/L U/L (0-32) ALT 19 U/L U/L (0-33) Alkaline Phosphatase 118 IU/L H IU/L (35-105) C-Reactive Protein 38.6 mg/L H mg/L (0.0-4.9) NT-Pro-B Natriuret Pep > 98309 pg/mL H pg/mL (0-125) Total Protein 6.8 g/dL g/dL (6.6-8.7) Albumin 3.6 g/dL g/dL (3.5-5.2) Globulin 3.2 g/dL g/dL (1.3-4.6) Lipase 20 U/L U/L (13-60) Urine Color Urine Appearance Urine pH Ur Specific [place] Urine Protein Urine Glucose (UA) Urine Ketones Urine Blood Urine Nitrate Urine Bilirubin Urine Urobilinogen Ur Leukocyte Esterase Urine RBC Urine WBC Ur Squamous Epith Cells Amorphous Sediment Urine Bacteria Urine Opiates Screen Ur Barbiturates Screen Ur Phencyclidine Scrn Ur Amphetamines Screen U Benzodiazepines Scrn Urine Cocaine Screen U Marijuana (THC) Screen 11/09/21 11/09/21 11/09/21 13:30 15:29 15:29 WBC RBC Hgb Hct MCV MCH MCHC RDW Plt Count MPV Neut % (Auto) Lymph % (Auto) [place] % (Auto) Eos % (Auto) Baso % (Auto) Neut # (Auto) Lymph # (Auto) [place] # (Auto) Eos # (Auto) Baso # (Auto) Nucleated RBC % (auto) Nucleated RBCs # PT INR Sodium Potassium Chloride Carbon Dioxide Anion Gap BUN Creatinine GFR Calculation Glucose Calculated Osmolality Lactate 0.6 mmol/L mmol/L (0.5-2.2) Calcium Total Bilirubin AST ALT Alkaline Phosphatase C-Reactive Protein NT-Pro-B Natriuret Pep Total Protein Albumin Globulin Lipase Urine Color Straw (Yellow) Urine Appearance Hazy A (CLEAR) Urine pH 5 (5-7) Ur Specific [place] 1.015 (1.005-1.030) Urine Protein 3+ H (Negative) Urine Glucose (UA) Norm (Normal) Urine Ketones Negative (Negative) Urine Blood 2+ H (Negative) Urine Nitrate Negative (Negative) Urine Bilirubin Neg (Negative) Urine Urobilinogen Norm mg/dL mg/dL (Negative) Ur Leukocyte Esterase Trace H (Negative) Urine RBC 5-10 /hpf H /hpf (0-2) Urine WBC 25-40 /hpf H /hpf (0-5) Ur Squamous Epith Cells 5-10 /hpf H /hpf (0-5) Amorphous Sediment Not Reportable Urine Bacteria 3+ /hpf H /hpf (NONE) Urine Opiates Screen Negative ng/mL ng/mL (Negative) Ur Barbiturates Screen Negative ng/mL ng/mL (Negative) Ur Phencyclidine Scrn Negative ng/mL ng/mL (Negative) Ur Amphetamines Screen Negative ng/mL ng/mL (Negative) U Benzodiazepines Scrn Negative ng/mL ng/mL (Negative) Urine Cocaine Screen Negative ng/mL ng/mL (Negative) U Marijuana (THC) Screen Negative ng/mL ng/mL (Negative) Discharge Plan Discharge Patient Disposition: Admitted As Inpatient Admit Provider: Camilo Mahmood Clinical Impression: Hypertensive crisis, CHF (congestive heart failure), NYHA class III, CKD (chronic kidney disease), Abdominal pain Condition: Stable Sign Out Sign Out Data: Patient Sign Out occurred on 11/09/21 at 17:31. Patient's care was discussed, and care was transferred from to New Cassidy DO. Coding Level of Care Code ED Claim Processing Specialist for Chg Fwd Documented by User: New Cassidy DO 11/10/21 06:32 HPI - General Adult General: Chief complaint: ER Hold Stated complaint: HEART Time Seen by Provider: 11/09/21 13:01 History of Present Illness: HPI narrative: 31-year-old female presents emergency room with complaint abdominal pain. Earlier today she was seen in Dr. Henderson's office with elevated blood pressure and complaints of abdominal pain. Additionally she not had any bowel movements for several days. We had seen her last fall there is concern of significant bowel ischemia related to methamphetamine use Dr. Henderson was worried that this was a recurring episode. She is tachycardic and hypertensive on arrival here. She also had a pericardial effusion associated with this last time. She denies any hematochezia melena hematemesis or coffee-ground emesis denies any fever sweats or chills at home. She has had some associated renal issues with the last episode her creatinine has never fully recovered to normal but states her urine output lately has been good. She is not noticed anything that improves the other than lying very still in any attempt to eat worsens her symptoms. Onset (ago): day(s) Location: abdomen Severity: severe Quality: aching Pain Consistency: constant Relieving factors: none Exacerbating factors: none Associated symptoms: Reports decreased appetite, malaise, nausea and weakness; Deny chest pain, confusion, cough, diaphoresis, dyspnea, fevers/chills, headache(s), rash, palpitations, seizures, short of breath, syncope or vomiting Treatments prior to arrival: none Review of Systems Const: Reports: malaise; Denies: diaphoresis Card: Denies: chest pain, palpitations or syncope Resp: Denies: dyspnea GI: Reports: nausea; Denies: vomiting Skin/Breast: Denies: rash Neuro: Denies: headache(s) or confusion PFS ED PFSH: Medical History CHF (congestive heart failure), NYHA class III CKD (chronic kidney disease) Hypertension Methamphetamine abuse Substance abuse Surgical History S/P cholecystectomy Status post biopsy of kidney Status post insertion of hemodialysis catheter Family History Other CAD (coronary artery disease) Hypertension Social History Alcohol intake: never Other details last substance use: Reports of prior methamphetamine abuse per prior documentation. Juan zhang Household members: family and other Details: Lives with mother Housing: House Marital status: Single Current occupational status: unemployed Current gender identity: Female Physical Exam Const: COMMON NORMALS: no acute distress GENERAL APPEARANCE: cooperative and comfortable ORIENTATION/CONSCIOUSNESS: Yes awake, Yes oriented to person, Yes oriented to place and Yes oriented to time HENMT: COMMON NORMALS: normocephalic, atraumatic and hearing grossly normal bilaterally HEAD & SCALP: normocephalic and atraumatic Resp: COMMON NORMALS: normal respiratory effort, No retractions, No use of accessory muscles and clear to auscultation bilaterally AUSCULTATION: clear to auscultation bilaterally Cardio: COMMON NORMALS: regular rate, regular rhythm and No murmurs present (Cardio) RATE: regular rate RHYTHM: regular rhythm GI: COMMON NORMALS: No hepatosplenomegaly present AUSCULTATION: Yes Hypoactive bowel sounds present PALPATION: Yes Tenderness to palpation present (GI) (Diffuse tenderness), No Guarding due to palpation present (GI) and Yes No hepatosplenomegaly present Extremity: COMMON NORMALS: normal to inspection, capillary refill normal, no clubbing, cyanosis or edema, no calf tenderness and no pedal edema Neuro: SENSORIUM/ORIENTATION: Yes oriented to person, Yes oriented to place and Yes oriented to time Skin: COMMON NORMALS: no rashes or lesions noted GENERAL SKIN EXAM: no rashes or lesions noted Course Vital Signs: Vital signs: Vital Signs Temperature 100.7 F H 11/09/21 16:41 Pulse Rate 86 11/09/21 20:45 Respiratory Rate 16 11/09/21 20:45 Blood Pressure 133/67 01/24/22 20:45 Pulse Oximetry 95 11/09/21 20:45 MDM - General Adult MDM Narrative Medical decision making narrative: Labs and imaging reviewed discussed with patient and with the hospitalist will admit consult cardiology. Echocardiogram does not show significant pericardial effusion. Patient started on a Cardene drip for blood pressure control. Lab Data Result diagrams: 11/10/21 03:23 11/10/21 03:23 Labs: Lab Results 11/09/21 11/09/21 11/09/21 13:30 13:30 13:30 WBC 13.0 10^3/uL H 10^3/uL (4.0-10.0) RBC 3.70 10^6/uL L 10^6/uL (4.1-5.3) Hgb 10.8 g/dL L g/dL (11.5-15.3) Hct 33.1 % L % (37.0-47.0) MCV 89.5 fl fl (81-99) MCH 29.2 pg pg (28.0-34.0) MCHC 32.6 g/dL g/dL (30.0-36.0) RDW 13.2 % % (12.1-15.1) Plt Count 236 10^3/cmm 10^3/cmm (130-400) MPV 11.2 fL H fL (7.4-10.4) Neut % (Auto) 78.2 % % Lymph % (Auto) 8.9 % % [place] % (Auto) 10.6 % % Eos % (Auto) 1.2 % % Baso % (Auto) 0.4 % % Neut # (Auto) 10.16 10^3/uL H 10^3/uL (1.8-7.7) Lymph # (Auto) 1.2 10^3/uL 10^3/uL (0.8-4.8) [place] # (Auto) 1.4 10^3/uL H 10^3/uL (0.2-0.9) Eos # (Auto) 0.2 10^3/uL 10^3/uL (0.0-0.8) Baso # (Auto) 0.1 10^3/uL 10^3/uL (0.0-0.1) Nucleated RBC % (auto) 0 % % Nucleated RBCs # 0.0 /100WBC /100WBC PT 13.20 SECONDS SECONDS (12.1-14.9) INR 0.97 (0.8-1.2) Sodium 137 mmol/L mmol/L (136-145) Potassium 3.3 mmol/L L mmol/L (3.5-5.1) Chloride 103 mmol/L mmol/L (98-107) Carbon Dioxide 19 mmol/L L mmol/L (22-29) Anion Gap 18.3 (5-19) BUN 30 mg/dL H mg/dL (6-20) Creatinine 2.8 mg/dL H mg/dL (0.5-0.9) GFR Calculation 19.7 mL/min L mL/min (90-130) Glucose 88 mg/dL mg/dL (65-115) Calculated Osmolality 290 mOsm/kg mOsm/kg (285-295) Lactate Calcium 8.3 mg/dL L mg/dL (8.5-10.5) Total Bilirubin 0.6 mg/dL mg/dL (0.15-1.2) AST 25 U/L U/L (0-32) ALT 19 U/L U/L (0-33) Alkaline Phosphatase 118 IU/L H IU/L (35-105) C-Reactive Protein 38.6 mg/L H mg/L (0.0-4.9) NT-Pro-B Natriuret Pep > 75917 pg/mL H pg/mL (0-125) Total Protein 6.8 g/dL g/dL (6.6-8.7) Albumin 3.6 g/dL g/dL (3.5-5.2) Globulin 3.2 g/dL g/dL (1.3-4.6) Lipase 20 U/L U/L (13-60) Urine Color Urine Appearance Urine pH Ur Specific [place] Urine Protein Urine Glucose (UA) Urine Ketones Urine Blood Urine Nitrate Urine Bilirubin Urine Urobilinogen Ur Leukocyte Esterase Urine RBC Urine WBC Ur Squamous Epith Cells Amorphous Sediment Urine Bacteria Urine Opiates Screen Ur Barbiturates Screen Ur Phencyclidine Scrn Ur Amphetamines Screen U Benzodiazepines Scrn Urine Cocaine Screen U Marijuana (THC) Screen 11/09/21 11/09/21 11/09/21 13:30 15:29 15:29 WBC RBC Hgb Hct MCV MCH MCHC RDW Plt Count MPV Neut % (Auto) Lymph % (Auto) [place] % (Auto) Eos % (Auto) Baso % (Auto) Neut # (Auto) Lymph # (Auto) [place] # (Auto) Eos # (Auto) Baso # (Auto) Nucleated RBC % (auto) Nucleated RBCs # PT INR Sodium Potassium Chloride Carbon Dioxide Anion Gap BUN Creatinine GFR Calculation Glucose Calculated Osmolality Lactate 0.6 mmol/L mmol/L (0.5-2.2) Calcium Total Bilirubin AST ALT Alkaline Phosphatase C-Reactive Protein NT-Pro-B Natriuret Pep Total Protein Albumin Globulin Lipase Urine Color Straw (Yellow) Urine Appearance Hazy A (CLEAR) Urine pH 5 (5-7) Ur Specific [place] 1.015 (1.005-1.030) Urine Protein 3+ H (Negative) Urine Glucose (UA) Norm (Normal) Urine Ketones Negative (Negative) Urine Blood 2+ H (Negative) Urine Nitrate Negative (Negative) Urine Bilirubin Neg (Negative) Urine Urobilinogen Norm mg/dL mg/dL (Negative) Ur Leukocyte Esterase Trace H (Negative) Urine RBC 5-10 /hpf H /hpf (0-2) Urine WBC 25-40 /hpf H /hpf (0-5) Ur Squamous Epith Cells 5-10 /hpf H /hpf (0-5) Amorphous Sediment Not Reportable Urine Bacteria 3+ /hpf H /hpf (NONE) Urine Opiates Screen Negative ng/mL ng/mL (Negative) Ur Barbiturates Screen Negative ng/mL ng/mL (Negative) Ur Phencyclidine Scrn Negative ng/mL ng/mL (Negative) Ur Amphetamines Screen Negative ng/mL ng/mL (Negative) U Benzodiazepines Scrn Negative ng/mL ng/mL (Negative) Urine Cocaine Screen Negative ng/mL ng/mL (Negative) U Marijuana (THC) Screen Negative ng/mL ng/mL (Negative) Discharge Plan Discharge Patient Disposition: Admitted As Inpatient Admit Provider: Camilo Mahmood Clinical Impression: Hypertensive crisis, CHF (congestive heart failure), NYHA class III, CKD (chronic kidney disease), Abdominal pain Condition: Stable Sign Out Sign Out Data: Patient Sign Out occurred on 11/09/21 at 17:31. Patient's care was discussed, and care was transferred from to New Cassidy DO. Coding Level of Care Code ED Claim Processing Specialist for Guillermo Puente
[2021-11-09] MEDS: cloNIDine 0.1 mg Tablet 0.2 MG PO (13:10)
--- NOTE | 2021-11-09 13:40 | PC.NURSE ---
pt oriented to vertical flow environment. pt c/o generalized fatigue and not feeling well. Pt states she has gained 23lb in less than 2 weeks due to her congestive heart failure. orders received for IV fluids. Spoke with ED provider (jesenia) who gave verbal orders to hold IV fluid at this time
[2021-11-09 13:50] LABS: Basophils # 0.1 10^3/uL (0.0-0.1); Basophils % 0.4 %; Eosinophils # 0.2 10^3/uL (0.0-0.8); Eosinophils % 1.2 %; Hematocrit 33.1 % (37.0-47.0); Hemoglobin 10.8 g/dL (11.5-15.3); Lymphocytes # 1.2 10^3/uL (0.8-4.8); Lymphocytes % 8.9 %; Mean Corpuscular HGB Conc 32.6 g/dL (30.0-36.0); Mean Corpuscular Hemoglobin 29.2 pg (28.0-34.0); Mean Corpuscular Volume 89.5 fl (81-99); Mean Platelet Volume 11.2 fL (7.4-10.4); Monocytes # 1.4 10^3/uL (0.2-0.9); Monocytes % 10.6 %; Neutrophils # 10.16 10^3/uL (1.8-7.7); Neutrophils % 78.2 %; Nucleated Red Blood Cells % 0 %; Platelet Count 236 10^3/cmm (130-400); Red Cell Distribution Width 13.2 % (12.1-15.1)
[2021-11-09 13:59] LABS: INR 0.97 (0.8-1.2)
[2021-11-09 14:04] LABS: Lactate (Lactic Acid level) 0.6 mmol/L (0.5-2.2)
[2021-11-09 14:13] LABS: Alanine Aminotransferase 19 U/L (0-33); Albumin Level 3.6 g/dL (3.5-5.2); Alkaline Phosphatase 118 IU/L (35-105); Anion Gap 18.3 (5-19); Aspartate Amino Transferase 25 U/L (0-32); Blood Urea Nitrogen 30 mg/dL (6-20); C Reactive Protein 38.6 mg/L (0.0-4.9); Calcium 8.3 mg/dL (8.5-10.5); Carbon Dioxide 19 mmol/L (22-29); Chloride 103 mmol/L (98-107); Globulin 3.2 g/dL (1.3-4.6); Glomerular Filtration Rate 19.7 mL/min (90-130); Glucose 88 mg/dL (65-115); Lipase 20 U/L (13-60); Osmolality Calculated 290 mOsm/kg (285-295); Potassium 3.3 mmol/L (3.5-5.1); Sodium 137 mmol/L (136-145); Total Bilirubin 0.6 mg/dL (0.15-1.2); Total Protein 6.8 g/dL (6.6-8.7)
--- NOTE | 2021-11-09 14:33 | PC.NURSE ---
pt states, i don't want to do that. i want to go home and sleep when asked to get up and give nurse a urine sample.
[2021-11-09 14:46] LABS: NT Pro B Type Natriuretic Pept > 70000 pg/mL (0-125)
[2021-11-09 14:54] LABS: Slide Review Slide Review Perform
--- NOTE | 2021-11-09 15:04 | PC.NURSE ---
upon assessment patient found to be spo2 of 86-88% on Room air. patient placed on 3 L NC and improved to 93%. Provider Guillermo aware of patients decreased in spo2. patinet lethargic and sleepy upon assessment.
--- NOTE | 2021-11-09 15:11 | USCV_ITS ---
Debo Little Age: 31 Gender: F : 1990 Exam Date: 11/09/2021 16:55 Ordering Phys: New Cassidy DO Technologist: ALLYSSA [place] [facility] [place]: LARGE PERICARDIAL EFFUSION BP: 270 / 128 HR: 113 Rhythm: Sinus Technical Quality: Adequate MEASUREMENTS (Male / Female) Normal Values 2D ECHO LV Diastolic Diameter PLAX 5.4 cm 4.2 - 5.9 / 3.9 - 5.3 cm LV Systolic Diameter PLAX 4.5 cm IVS Diastolic Thickness 1.5 cm 0.6 - 1.0 / 0.6 - 0.9 cm IVS Systolic Thickness 2.0 cm LVPW Diastolic Thickness 2.4 cm 0.6 - 1.0 / 0.6 - 0.9 cm LVPW Systolic Thickness 2.6 cm LVOT Diameter 2.0 cm LV Ejection Fraction 2D Teich 34.7 % LV Ejection Fraction MOD 2C 28.3 % LV Ejection Fraction 2C AL 26.3 % LA Diameter 4.2 cm Aorta at Sinotubular Diameter 2.3 cm M-MODE Aortic Annulus Diameter 2.7 cm LA Ao Ratio MM 1.4 MV E Point Septal Separation 0.9 cm FINDINGS Left Ventricle Normal left ventricular cavity size. Markedly increased left ventricular wall thickness. Severe concentric left ventricular hypertrophy. Normal left ventricular systolic function. Left ventricular ejection fraction is estimated at 55 %. No regional wall motion abnormalities. Right Ventricle Normal right ventricular size and mildly decreased systolic function. Right Atrium Normal right atrial size. Left Atrium Mildly increased left atrial size. Mitral Valve Structurally normal mitral valve. No mitral valve stenosis. Mild-moderate mitral valve regurgitation. Aortic Valve Structurally normal trileaflet aortic valve. No aortic valve stenosis. No aortic valve regurgitation. Tricuspid Valve Structurally normal tricuspid valve. No tricuspid valve stenosis. Trace to mild tricuspid valve regurgitation. Pulmonic Valve Pulmonic valve not well visualized. Pericardium Moderate to large circumferential pericardial effusion. No significant mitral or tricuspid valve respiratory variation. Right atrial diastolic collapse. Echocardiographic findings suggest a hemodynamically significant pericardial effusion. Aorta Normal size aortic root and proximal ascending aorta. IVC not well visualized. CONCLUSIONS 1. Normal left ventricular cavity size. Markedly increased left ventricular wall thickness. Severe concentric left ventricular hypertrophy. Normal left ventricular systolic function. Left ventricular ejection fraction is estimated at 55 %. No regional wall motion abnormalities. 2. Normal right ventricular size and mildly decreased systolic function. 3. Mild-moderate mitral valve regurgitation. 4. Moderate to large circumferential pericardial effusion. Right atrial diastolic collapse noted. Echocardiographic findings suggest a hemodynamically significant pericardial effusion. 5. When compared to previous study dated 05.06.21, percardial effusion has increased in size. Lizzy Henderson MD (Electronically Signed) Final Date: 09 November 2021 22:31 S
[2021-11-09 16:07] LABS: Amphetamines Screen Urine Negative (Negative); Barbiturates Screen Urine Negative (Negative); Benzodiazepines Screen Urine Negative (Negative); Cocaine Screen Urine Negative (Negative); Opiate Screen Urine Negative (Negative); PCP Screen Urine Negative (Negative); THC Screen Urine Negative (Negative)
[2021-11-09 16:10] LABS: Urine Appearance Hazy (CLEAR); Urine Color Straw (Yellow)
[2021-11-09 16:11] LABS: Add Urine Microscopic? YES; Bilirubin Urine Neg (Negative); Blood Urine 2+ (Negative); Glucose Urine UA Norm (Normal); Ketones Urine Negative (Negative); Leukocyte Esterase Urine Trace (Negative); Nitrate Urine Negative (Negative); Protein Urine 3+ (Negative); Specific Gravity, Urine 1.015 (1.005-1.030); Urobilinogen Urine Norm (Negative); pH Urine 5 (5-7)
[2021-11-09 16:12] LABS: Add Urine Culture? Yes; Bacteria Urine 3+ /hpf; WBC Urine 25-40 /hpf (0-5)
[2021-11-09] MEDS: piperacillin-tazobactam 3.375 GM in sodium chloride 0.9% (plus) 50 ML IV (16:39)
--- NOTE | 2021-11-09 17:40 | XRR_ITS ---
PROCEDURE INFORMATION: Exam: XR Chest Exam date and time: 11/09/2021 5:40 PM Age: 31 years old Clinical indication: Cough; Additional info: Dyspnea/cough TECHNIQUE: Imaging protocol: XR of the chest. Views: 1 view. COMPARISON: CT chest abd pel wo con 11/09/2021 2:40 PM FINDINGS: Lungs: Multifocal patchy parenchymal ground-glass opacities in the lungs. Pleural spaces: Query small volume bilateral pleural effusions. Heart/Mediastinum: Severe cardiomediastinal silhouette dilation. Bones/joints: Unremarkable. XR/XR chest 1V portable [id number] IMPRESSION: 1. Suspect multifocal pneumonia process. 2. Pleural effusions. 3. Combination of cardiomegaly and pericardial effusion.
[2021-11-09] MEDS: FUROsemide 10 mg/mL SDV 10mL 80 MG IVP (17:51)
[2021-11-09] MEDS: nicardipine 20 MG/200 ML PREMIX 50 MG IV (18:02)
[2021-11-09 20:42] LABS: Adenovirus Not Detected (NOT DETECT); Chlamydia Pneumoniae Not Detected (NOT DETECT); Coronavirus 229E,HKU1,NL63,OC4 Not Detected (NOT DETECT); Human Metapneumovirus Not Detected (NOT DETECT); Human Rhinovirus/Enterovirus Not Detected (NOT DETECT); Influenza A Not Detected (NOT DETECT); Influenza A H1 Not Detected (NOT DETECT); Influenza A H1-2009 Not Detected (NOT DETECT); Influenza A H3 Not Detected (NOT DETECT); Influenza B Not Detected (NOT DETECT); Mycoplasma Pneumoniae Not Detected (NOT DETECT); Parainfluenza Virus Type 1 Not Detected (NOT DETECT); Parainfluenza Virus Type 2 Not Detected (NOT DETECT); Parainfluenza Virus Type 3 Not Detected (NOT DETECT); Parainfluenza Virus Type 4 Not Detected (NOT DETECT); Respiratory Syncytial Virus A Not Detected (NOT DETECT); Respiratory Syncytial Virus B Not Detected (NOT DETECT); SARS-COV-2 Not Detected (NOT DETECT)
--- NOTE | 2021-11-09 20:42 | P.HP_ITS ---
Providers/Chief Complaint Admitting Physician: Camilo Mahmood MD Primary Care Provider: Laurent Wolfe MD Chief Complaint: HEART History of Present Illness Debo Little is a 31 year old female with a past medical history of IV meth use, she tells me that she has not used in many months, does report using oral Percocet a few days ago, history of chronic kidney disease, without dialysis for the last 6 months, history of hepatitis C, history of hypertension, history of. Cardial effusion, history of ischemic bowel, who presents to [facility] from cardiology's office due to increased weight gain up to 25 pounds, increased lower extremity edema, increased abdominal wall edema, constipation, decrease stooling, which he presented to cardiology office her blood pressure was 270/130. Currently patient is on a Cardene drip, her blood pressures are improving, last blood pressure 180/100, denies any chest pain, no headache, blurry vision, no shortness of breath, does complain of abdominal wall edema, and severe constipation, and lower extremity edema. She tells me that she has been increasingly short of breath, also has developed a cough, orthopnea, paroxy smal nocturnal dyspnea, she thought she might have a viral infection so she used amoxicillin from her friend. She also tells me that she rode in a car with her friend who tested positive for Covid, she did wear a mask. She reports to Covid vaccines. She has received pneumonia vaccine. Has received flu vaccine. Currently she is on 3 L, she had a T-max 100.7. Review of Systems Const: Reports: fever(s), fatigue and malaise; Denies: chills Eyes: Denies: change in vision or blurry vision ENMT: Denies: nasal congestion Resp: Reports: dyspnea and non-productive cough; Denies: productive cough or wheezing GI: Reports: abdominal pain and constipation; Denies: nausea, vomiting, hematemesis, coffee ground emesis, diarrhea, hematochezia or melena : Denies: flank pain, dysuria or urinary frequency Musc: Denies: neck pain or back pain Skin/Breast: Denies: rash Neuro: Denies: headache(s), dizziness or vertigo Psych: Denies: anxiety or depression Endo: Denies: polyuria or polydipsia Medications/Allergies Home Medications Medication Instructions Recorded Confirmed Last Taken Type amlodipine 10 mg PO DAILY 05/08/21 05/08/21 05/08/21 12:00 History dicyclomine 10 mg PO TID PRN 05/08/21 05/08/21 05/08/21 History furosemide 20 mg PO . DIRECTED 05/08/21 05/08/21 05/08/21 History minoxidil 10 mg PO BID 05/08/21 05/08/21 05/08/21 12:00 History hydralazine 100 mg tablet 100 mg PO TID #90 tab 10/08/21 10/08/21 Unknown Rx labetalol 300 mg tablet 300 mg PO BID #60 tab 10/08/21 10/08/21 Unknown Rx Allergies Allergy/AdvReac Type Severity Reaction Status Date / Time No Known Allergies Allergy Verified 11/09/21 11:45 PFSH Acute PFSH: Medical History CHF (congestive heart failure), NYHA class III CKD (chronic kidney disease) Hypertension Methamphetamine abuse Substance abuse Surgical History S/P cholecystectomy Status post biopsy of kidney Status post insertion of hemodialysis catheter Family History Other CAD (coronary artery disease) Hypertension Social History Alcohol intake: never Other details last substance use: Reports of prior methamphetamine abuse per prior documentation. Juan holcomb Household members: family and other Details: Lives with mother Housing: House Marital status: Single Current occupational status: unemployed Current gender identity: Female Female Reproductive History: Date of last menstrual period: 09/05/20 Vitals/I&O/Wt Last Vital Signs Temp 100.7 F H 11/09/21 16:41 Pulse 114 H 11/09/21 18:45 Resp 19 H 11/09/21 18:45 BP 216/122 11/09/21 18:45 Pulse Ox 97 11/09/21 18:45 11/09/21 11/09/21 11/09/21 06:59 14:59 22:59 Intake Total 105.000 / 105.000 Balance 105.000 / 105.000 Weight last 48 hrs Weight 93.894 kg Physical Exam Const: COMMON NORMALS: no acute distress and patient oriented x3 GENERAL APPEARANCE: cooperative and comfortable HENMT: COMMON NORMALS: normocephalic HEAD & SCALP: normocephalic Eye: COMMON NORMALS: Equal, round and reactive pupils present and EOMs intact bilaterally GENERAL EYE: appearance normal, both eyes and all related structures PUPIL: Yes Equal, round and reactive pupils present Neck/C-Spine: COMMON NORMALS: full ROM and no lymphadenopathy THYROID: Thyroid normal Lymph: LYMPHATIC: no lymphadenopathy noted Resp: COMMON NORMALS: normal respiratory effort, No retractions, No use of accessory muscles and clear to auscultation bilaterally AUSCULTATION: clear to auscultation bilaterally Cardio: COMMON NORMALS: regular rate, regular rhythm, S1 normal heart sound present, S2 normal heart sound present, No gallops present (Cardio), No clicks present (Cardio) and No murmurs present (Cardio) RATE: tachycardic RHYTHM: regular rhythm HEART SOUNDS: S1 normal heart sound present, S2 normal heart sound present and Murmur heart sound present systolic GI: COMMON NORMALS: Normal to inspection, nondistended, normoactive bowel sounds present, Soft to palpation, non-tender and No hepatosplenomegaly present INSPECTION: Yes Abdominal wall edema PALPATION: Yes Soft to palpation Extremity: COMMON NORMALS: normal to inspection and full ROM NARRATIVE EXTREMITY EXAM: 1+ pitting edema bilateral extremities Neuro: COMMON NORMALS: patient oriented x3, CN's II-XII intact bilaterally, moves all extremities and no focal motor deficits Psych: COMMON NORMALS: mental status grossly normal, Normal thought process present and cooperative THOUGHT PROCESS: Normal thought process present Data : 11/09/21 13:30 11/09/21 13:30 Micro: Microbiology 11/09/21 15:18 Blood Culture - Preliminary Blood SPECIMEN COLLECTED 11/09/21 15:16 Blood Culture - Preliminary Blood SPECIMEN COLLECTED A&P Assessment and plan (1) Hypertensive emergency: -Serial troponins, serial EKGs, telemetry monitoring, no chest pain complaint -We will do CT of the head, alert oriented x3, no focal neurologic deficits reported -Creatinine 2.8 -Currently on Cardene drip, weaning down, reduce MAP by 20%, the first hour, followed by 50% over the next 23 hours, and for systolic blood pressure less than 160, diastolic blood pressure less than 110 -Continue home labetalol 300 mg twice daily -Hydralazine 100 3 times daily -Minoxidil 10 twice daily -Full code -Heparin for DVT prophylaxis Status: Acute (2) CHF (congestive heart failure), NYHA class III: -Generalized anasarca, bilateral extremity edema, BNP over 70,000 -Has received 80 of Lasix in the ER, potassium 3.3, will replace potassium -Start Lasix 40 twice daily in the morning, recheck potassium in the morning Status: Acute (3) Abdominal pain: -Etiology unclear, likely anasarca, constipation, start MiraLAX, Colace -History of ischemic bowel, transfer to [facility], according to patient no interventions -CT of the abdomen pelvis no acute pathology Status: Acute (4) CKD (chronic kidney disease): -Baseline creatinine is 2.0, CKD 2.8 today, monitor creatinine as he is on Lasix, and blood pressure reduction -Monitor creatinine, monitor urine output -We will have to consult nephrology -Likely hypertensive nephropathy Status: Acute (5) Hepatitis C: -No history of treatment Status: Acute (6) Cardiomyopathy: Status: Acute (7) Methamphetamine abuse: -Methamphetamine abuse, denies current use Status: Chronic (8) LVH (left ventricular hypertrophy): Status: Acute (9) Pneumonia: -CT of the chest shows extensive opacification of right lung edema versus pneumonia -Febrile, tachycardic, requiring 3 L -Covid negative -We will do flu testing -CRP 38.6 -Sputum cultures, blood cultures, urine bacterial antigens, HIV, -History of pericardial effusion, will do transthoracic echocardiogram, evaluate for vegetations -On her admission April 2021, she had Pseudomonas positive dialysis catheter tip, which was removed, but she did have Pantoea agglomerans , bacteremia she left AMA, was sent home on antibiotics Levaquin for 14 days -Continue vancomycin, Zosyn, de-escalate based on clinical progress Status: Acute (10) Acute exacerbation of CHF (congestive heart failure): Status: Acute (11) Pericardial effusion: -History of pericardial effusion, moderate, suspicion for tamponade physiology, no history of any surgery or pericardial window as per patient this was at [facility] Status: Acute Attestations Medical Necessity Statement*: Patient requires hospitalization, inpatient, greater than 2 midnights, ICU for hypertensive emergency, CHF, pneumonia, abdominal pain, CKD Coding Level of Care Code Acute Grain Elevator Clerk for g Fwd Diagnoses Hypertensive emergency I16.1 CHF (congestive heart failure), NYHA class III I50.9 Abdominal pain R10.9 CKD (chronic kidney disease) N18.9 Hepatitis C B19.20 Cardiomyopathy I42.9 Methamphetamine abuse F15.10 LVH (left ventricular hypertrophy) I51.7 Pneumonia J18.9 Acute exacerbation of CHF (congestive heart failure) I50.9 Pericardial effusion I31.3
--- NOTE | 2021-11-09 20:45 | PC.NURSE ---
luis paused at this time. pt is normotensive. BP 133/67. Hospitalist notified
--- NOTE | 2021-11-09 20:49 | CTR_ITS ---
PROCEDURE INFORMATION: Exam: CT Head Without Contrast Exam date and time: 11/09/2021 8:49 PM Age: 31 years old Clinical indication: Other: HTN; Additional info: HTN urgency TECHNIQUE: Imaging protocol: Computed tomography of the head without contrast. Radiation optimization: All CT scans at this facility use at least one of these dose optimization techniques: automated exposure control; mA and/or kV adjustment per patient size (includes targeted exams where dose is matched to clinical indication); or iterative reconstruction. COMPARISON: CT head wo con* [id number] 10/07/2021 6:11 PM RADIATION DOSE METRICS: Total DLP (mGy-cm): 972.1 FINDINGS: Brain: Normal. No hemorrhage. Unremarkable white matter. No mass effect. Cerebral ventricles: No ventriculomegaly. Paranasal sinuses: Visualized sinuses are unremarkable. No fluid levels. Mastoid air cells: Visualized mastoid air cells are well aerated. Bones/joints: Unremarkable. No acute fracture. Soft tissues: Unremarkable. CT/CT head wo con* [id number] IMPRESSION: No acute intracranial abnormality.
--- NOTE | 2021-11-09 20:49 | ECG_ITS ---
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 Measurements Intervals [place] Rate: 79 P: 37 SC: 138 QRS: 54 QRSD: 103 T: 218 QT: 447 QTc: 513 Interpretive Statements SINUS RHYTHM ST DEVIATION AND MODERATE T-WAVE ABNORMALITY, CONSIDER ANTEROLATERAL ISCHEMIA [-0.1+ mV T-WAVE IN V3-V6] ST DEVIATION AND MODERATE T-WAVE ABNORMALITY, CONSIDER INFERIOR ISCHEMIA [-0.1+ mV T-WAVE IN II/aVF] Compared to ECG 10/07/2021 18:32:37 No significant changes Electronically Signed On 11-09-2021 23:57:22 SSRS DEVELOPER by Zion Houston M.D. [id number]
[2021-11-09 21:29] LABS: Magnesium 1.9 mg/dL (1.7-2.3); Troponin(5th) Baseline 77 ng/L (0-10)
--- NOTE | 2021-11-09 22:49 | ECG_ITS ---
[facility] Test Date: 2021-11-09 Pat Name: Debo Little Department: Room: [facility] Gender: Female Appliance Servicer: : 1990 Requested By: Arjun Person Order Number: [id number] Candida MD: Lizzy Henderson M.D. Measurements Intervals [place] Rate: 78 P: 48 IN: 127 QRS: 51 QRSD: 98 T: 196 QT: 478 QTc: 546 Interpretive Statements SINUS RHYTHM ST DEVIATION AND MODERATE T-WAVE ABNORMALITY, CONSIDER ANTEROLATERAL ISCHEMIA [-0.1+ mV T-WAVE IN V3-V6] ST DEVIATION AND MODERATE T-WAVE ABNORMALITY, CONSIDER INFERIOR ISCHEMIA [-0.1+ mV T-WAVE IN II/aVF] Compared to ECG 11/09/2021 21:16:45 No significant changes Electronically Signed On 11-10-2021 17:27:29 PAPER CAP MACHINE OPERATOR by Lizzy Henderson M.D. [id number]
--- NOTE | 2021-11-09 22:50 | P.CONIM_ITS ---
Providers/Reason For Consult Consulting Physician/Specialty*: aura gutierres md / telenephrology Reason for Consult*: htn, ckd Attending Physician: Arjun Person MD Primary Care Provider: Laurent Wolfe MD History of Present Illness History of Present Illness Debo Little is a 31 year old female with a past medical history of IV meth use, hep c+, oral Percocet use, chronic kidney disease- ws on HD from sep 2020 to April 2021- permacath removed for bacteremia. she has not required HD since April 2021, also h/o HTN. The pt presented to [facility] from cardiology's office due to increased weight gain up to 25 pounds, increased lower extremity edema, increased abdominal wall edema, constipation, and htn urgency. she is now off of cardene drip. she is urinating s/p lasix. She c/o increasing short of breath, cough, orthopnea, paroxysmal nocturnal dyspnea, she thought she might have a viral infection so she used amoxicillin from her friend. She also t=c/o low grade temps. Review of Systems General: Reports: 10 or more systems reviewed and unremarkable except in HPI and below Narrative: weak, temps, cough, nausea, sob, swollen, orthopnea, DUMONT, constipation. poor appetite, weight gain Medications/Allergies Home Medications Medication Instructions Recorded Confirmed Last Taken Type amlodipine 10 mg PO DAILY 05/08/21 05/08/21 05/08/21 12:00 History dicyclomine 10 mg PO TID PRN 05/08/21 05/08/21 05/08/21 History furosemide 20 mg PO . DIRECTED 05/08/21 05/08/21 05/08/21 History minoxidil 10 mg PO BID 05/08/21 05/08/21 05/08/21 12:00 History hydralazine 100 mg tablet 100 mg PO TID #90 tab 10/08/21 10/08/21 Unknown Rx labetalol 300 mg tablet 300 mg PO BID #60 tab 10/08/21 10/08/21 Unknown Rx Allergies Allergy/AdvReac Type Severity Reaction Status Date / Time No Known Allergies Allergy Verified 11/09/21 11:45 Current Medications Generic Name Dose Route Start Last Admin Trade Name Freq PRN Reason Stop Dose Admin Nicardipine/Sodium Chloride 20 mg in 200 mls @ 0 mls/hr 11/09/21 17:45 11/09/21 20:45 Cardene IV Infused .Q0M GENNY Titration Protocol Per Protocol PFSH Acute PFSH: Medical History CHF (congestive heart failure), NYHA class III CKD (chronic kidney disease) Hypertension Methamphetamine abuse Substance abuse Surgical History S/P cholecystectomy Status post biopsy of kidney Status post insertion of hemodialysis catheter Family History Other CAD (coronary artery disease) Hypertension Social History Alcohol intake: never Other details last substance use: Reports of prior methamphetamine abuse per prior documentation. Juan zhang Household members: family and other Details: Lives with mother Housing: House Marital status: Single Current occupational status: unemployed Current gender identity: Female Female Reproductive History: Date of last menstrual period: 09/05/20 Vitals/I&O/Wt Last Vital Signs Temp 100.7 F H 11/09/21 16:41 Pulse 86 11/09/21 20:45 Resp 16 11/09/21 20:45 BP 133/67 11/09/21 20:45 Pulse Ox 95 11/09/21 20:45 11/09/21 11/09/21 11/09/21 06:59 14:59 22:59 Intake Total 200.000 / 200.000 Balance 200.000 / 200.000 Weight last 48 hrs Weight 93.894 kg Physical Exam Narrative: EXAM NARRATIVE: sob, weak, swollen, weak, resp discomfort vs noted heent- nc/at, eomi, anicteric neck jvp lungs dull bases, crackles, wheezes heart distant abd soft, nt, distended ext 3+ b/l edema neuro a,a, o x 3 Data Micro: Micro: Microbiology 11/09/21 15:18 Blood Culture - Pr eliminary Blood SPECIMEN [facility]LE[facility] JUNIOR 11/09/21 15:16 Blood Culture - Pr eliminary Blood SPECIMEN [facility] JUNIOR A&P Additional A&P Information 31 year old female 1. echo- Normal left ventricular cavity size. Markedly increased left ventricular wall thickness. Severe concentric left ventricular hypertrophy. Normal left ventricular systolic function. Left ventricular ejection fraction is estimated at 55 %. No regional wall motion abnormalities. --Normal right ventricular size and mildly decreased systolic function. -- Mild-moderate mitral valve regurgitation. . Moderate to large circumferential pericardial effusion. Right atrial diastolic collapse noted. Echocardiographic findings suggest a hemodynamically significant pericardial effusion. When compared to previous study dated 05.06.21, percardial effusion has increased in size. 2. htn urgency- use lasix drip- see if fluid removal helps 3. stage 4 CKD + from htn. q if from HEp c+, from drugs, htn, or CRS -pt now w/ bhupinder- cr 2.8 from 2 mg/dl -monitor w/ diuresis and bp control -will discuss pericardial effusion w/ crdiologist in am 4. hgb okay 5. met acidosis from CKD 6. replace k check tsh meds reviewed seen and examined w/ RN- telehealth visit discussed w/ Dr. Benita Person Consult Attestations Medical Necessity Statement: bhupinder on ckd, diastolic dysfunction, htn, volume overload Time Spent in Patient Care: Greater than 35 minutes Coding Level of Care Code Acute Global Account Manager for Chg Kwame
[2021-11-09 23:17] LABS: Troponin 5 2HR 73.23 ng/L (0-10)
[2021-11-09 23:20] LABS: Troponin 5 2HR Delta -3.77 ABS# (0-10)
[2021-11-09 23:34] LABS: Uric Acid 6.2 mg/dL (2.4-5.7)
[2021-11-09] MEDS: FUROsemide 10 mg/mL SDV 4mL 40 MG IVP (23:56)
[2021-11-10] VITALS (31 sets, daily range): BP systolic 143–214; BP diastolic 64–134; PULSE 71–106; RESP 1–29; TEMP 36.6–36.8; O2SAT 89–98
--- NOTE | 2021-11-10 00:12 | PC.NURSE ---
pt took nightly meds already
[2021-11-10] MEDS: polyethylene glycol 3350 Pkt 17 gm PO ×3 (00:23→18:11)
[2021-11-10] MEDS: docusate sodium 100 mg Capsule PO ×3 (00:23→18:11)
--- NOTE | 2021-11-10 00:26 | PC.NURSE ---
pt cussing at nurse and mad because of diet order
[2021-11-10 01:03] LABS: Influenza A by IFA Negative (Negative); Influenza B by IFA Negative (Negative)
--- NOTE | 2021-11-10 01:07 | PC.PHAR ---
Pharmacokinetic dosing service Date: 11/10/21 Time: 99 Objective: Patient: Debo Little Floor: ED-5 Age: 31 yo Serum creatinine: 2.8 mg/dL Height: 62.0 Inches Weight (kg): 93.894 Diagnosis: Relevant medical/social history: Cultures and sensitivities: Other labs: Assessment: IBW (kg): 50.10 Dosing wt(kg): 93.894 Estimated Creatinine clearance (ml/min): 23.0 CRCL method: Cockcroft and Gault using ibw(default). Drug selected: Vancomycin Loading dose (mg): 0 Vd (liters): 84.5 (factor used: 0.9 L/kg) Tj (hr-1): 0.023 Half life (hrs): 30.14 Recommended dose: 1000 mg Interval: 24 hrs Infusion time (hrs): 1.5 Predicted peak (mcg/mL): 27.4 Predicted trough (mcg/mL): 16.33 Total body weight is being used for vancomycin dosing. Renal function is stable [ ] /unstable [ ] Recommendations: Give Vancomycin 1000 mg q 24 hrs with an expected Cpeak of 27.4 mcg/ml and an expected Ctrough of 16.33 mcg/ml Renal dosing of other antibiotics (review renal dosing of other medications and list guidelines here): Thank you for the consult, will continue to follow. Signature: Mckenna Monreal [facility]
[2021-11-10] MEDS: vancomycin 1,000 MG in sodium chloride 0.9% 250 ML 250 MG IV (01:41)
[2021-11-10] MEDS: lidocaine 1% 5 ML in potassium chloride premix 100 ML 25 ML IV (01:45)
[2021-11-10] MEDS: FUROsemide 100 MG in sodium chloride 0.9% 40 ML 20 MG IV (01:50)
[2021-11-10 02:00] LABS: Hepatitis A Antibody IgM Non-Reactive (Nonreactive); Hepatitis B Core IgM Non-Reactive (Nonreactive); Hepatitis B Surface Antigen Non-Reactive (Nonreactive); Hepatitis C Virus Antibody Reactive (Nonreactive)
[2021-11-10 02:35] LABS: Parathyroid Hormone 242.7 pg/mL (15-65)
[2021-11-10 02:37] LABS: Calcium 7.6 mg/dL (8.5-10.5)
--- NOTE | 2021-11-10 02:49 | ECG_ITS ---
[facility] Test Date: 2021-11-10 Pat Name: Debo Little Department: Room: ED Gender: Female Process Control Specialist: : 1990 Requested By: Arjun Person Order Number: [id number] Candida MD: Lizzy Henderson M.D. Measurements Intervals [place] Rate: 77 P: 62 MS: 139 QRS: 75 QRSD: 102 T: 221 QT: 469 QTc: 533 Interpretive Statements SINUS RHYTHM MODERATE T-WAVE ABNORMALITY, CONSIDER ANTEROLATERAL ISCHEMIA [-0.1+ mV T-WAVE IN V3-V6] MODERATE T-WAVE ABNORMALITY, CONSIDER INFERIOR ISCHEMIA [-0.1+ mV T-WAVE IN II/aVF] Compared to ECG 11/09/2021 23:08:39 No significant changes Electronically Signed On 11-10-2021 17:26:52 LANDSCAPE ARCHITECT by Lizzy Henderson M.D. [id number]
[2021-11-10] MEDS: piperacillin-tazobactam 3.375 GM in sodium chloride 0.9% (plus) 50 ML IV ×3 (02:55→18:12)
--- NOTE | 2021-11-10 02:59 | PC.NURSE ---
pt keeps pulling monitor off
[2021-11-10 05:20] LABS: 25 Hydroxy Vitamin D 22 ng/mL (30-100); Alanine Aminotransferase 15 U/L (0-33); Albumin Level 2.9 g/dL (3.5-5.2); Alkaline Phosphatase 93 IU/L (35-105); Anion Gap 17.5 (5-19); Aspartate Amino Transferase 20 U/L (0-32); Blood Urea Nitrogen 28 mg/dL (6-20); C Reactive Protein 53.3 mg/L (0.0-4.9); Calcium 8.4 mg/dL (8.5-10.5); Carbon Dioxide 18 mmol/L (22-29); Chloride 104 mmol/L (98-107); Ferritin 239 ng/mL (15-150); Globulin 3.1 g/dL (1.3-4.6); Glomerular Filtration Rate 21.5 mL/min (90-130); Glucose 87 mg/dL (65-115); Iron 19 ug/dL (37-145); Lactate Dehydrogenase 294 U/L (135-214); Magnesium 1.8 mg/dL (1.7-2.3); Osmolality Calculated 287 mOsm/kg (285-295); Percent Saturation 10.4 % (20-50); Phosphorus 3.6 mg/dL (2.5-4.5); Potassium 3.5 mmol/L (3.5-5.1); Procalcitonin 0.11 ng/mL (0-0.5); Sodium 136 mmol/L (136-145); Thyroid Stimulating Hormone 1.36 uIU/mL (0.27-4.20); Total Bilirubin 0.5 mg/dL (0.15-1.2); Total Iron Binding Capacity 182 mcg/dl; Unsaturated Iron Binding 163 ug/dL (112-347)
[2021-11-10 05:40] LABS: Basophils % 0.4 %; Eosinophils # 0.1 10^3/uL (0.0-0.8); Hematocrit 28.7 % (37.0-47.0); Hemoglobin 9.2 g/dL (11.5-15.3); Lymphocytes # 1.3 10^3/uL (0.8-4.8); Lymphocytes % 11.9 %; Mean Corpuscular HGB Conc 32.1 g/dL (30.0-36.0); Mean Corpuscular Hemoglobin 28.6 pg (28.0-34.0); Mean Corpuscular Volume 89.1 fl (81-99); Mean Platelet Volume 10.8 fL (7.4-10.4); Monocytes # 1.2 10^3/uL (0.2-0.9); Monocytes % 10.6 %; Neutrophils # 8.43 10^3/uL (1.8-7.7); Neutrophils % 75.6 %; Nucleated Red Blood Cells % 0 %; Platelet Count 220 10^3/cmm (130-400); Red Blood Count 3.22 10^6/uL (4.1-5.3); Red Cell Distribution Width 13.3 % (12.1-15.1); White Blood Count 11.2 10^3/uL (4.0-10.0)
[2021-11-10 05:47] LABS: Erythrocyte Sedimentation Rate 37 mm/hr (0-15); HIV 1 & 2 Antibody Non-Reactive (Non-Reactiv); HIV 1 & 2 Antigen Non-Reactive (Non-Reactiv)
[2021-11-10 05:51] LABS: Rapid Plasma Reagin Syphilis Nonreactive (Nonreactive)
[2021-11-10] MEDS: hyDRALAzine 50 mg Tablet 100 MG PO (05:51)
[2021-11-10] MEDS: FUROsemide 100 MG in sodium chloride 0.9% 40 ML 10 MG IV (05:55)
[2021-11-10 05:59] LABS: NT Pro B Type Natriuretic Pept > 70000 pg/mL (0-125); Troponin 5 6HR 74.38 ng/L (0-10); Troponin 5 6HR Delta -2.62 ng/L (0-12)
--- NOTE | 2021-11-10 06:17 | PC.NURSE ---
pt pulled monitor wires off again
--- NOTE | 2021-11-10 06:55 | PC.NURSE ---
Care handed to Leslye LEVIN
--- NOTE | 2021-11-10 08:00 | US_ITS ---
WS: [id number] RENAL ULTRASOUND HISTORY: bhupinder COMPARISON: 12 05/27/2020 TECHNIQUE: 2-D and color Doppler imaging of the kidney submitted. Right kidney: 10.3 cm x 5.3 cm x 4.2 cm. Kidney is normal size but there is increased echogenicity throughout the kidney with poor cortical me dullary differentiation. No hydronephrosis. Kidney is not enlarged. No mass. Left kidney: 13.3 cm x 5.5 cm x 5.3 cm. Kidneys normal size but there is severe increased echogenicity with poor cortical medullary different iation. No hydronephrosis or mass. Aorta: Normal. Urinary Bladder: Nondistended. Gabriel catheter in place. US/US renal BI* [id number] IMPRESSION: 1. Significant increased echogenicity within each kidney with no hydronephrosi s. Acute interstitial nephritis, glomerulonephritis and chronic medical renal d isease. 2. No renal atrophy.
--- NOTE | 2021-11-10 08:26 | PM.PN ---
Subjective Subjective: Interval history: feels better. still swollen. nausea. excellent uop Medications: Reviewed: Yes Medication Review Details: Current Medications Acetaminophen (Acetaminophen 325 Mg Tablet) 650 mg PO Q6H PRN PRN Reason: Mild/Mod Pain Or Temp >/= 101 Docusate Sodium (Docusate Sodium 100 Mg Capsule) 100 mg PO BID [facility] Last Admin: 11/10/21 00:23 Dose: 100 mg Documented by: Famotidine (Famotidine 20 Mg Tablet) 20 mg PO BID [facility] Furosemide (Furosemide 10 Mg/Ml Sdv 4ml) 40 mg IVP Q12H [facility] Heparin Sodium (Porcine) (Heparin 5,000 Unit/Ml Inj 1 Ml) 5,000 unit SUBCUT Q12H [facility] Last Admin: 11/10/21 00:24 Dose: Not Given Documented by: Hydralazine HCl (Hydralazine 50 Mg Tablet) 100 mg PO Q8H [facility] Last Admin: 11/10/21 05:51 Dose: 100 mg Documented by: Nicardipine/Sodium Chloride (Cardene) 20 mg in 200 mls @ 0 mls/hr IV .Q0M [facility]; Protocol Last Titration: 11/09/21 20:45 Dose: Infused Documented by: Furosemide 100 mg/ Sodium (Chloride) 50 mls @ 0 mls/hr IV .Q0M [facility]; Protocol Last Titration: 11/10/21 07:21 Dose: 20 mg/hr, 10 mls/hr Documented by: Piperacillin Sod/Tazobactam (Sod 3.375 gm/ Sodium Chloride) 50 mls @ 12.5 mls/hr IV Q8H [facility]; Protocol Last Infusion: 11/10/21 06:37 Dose: Infused Documented by: Vancomycin HCl 1,000 mg/ (Sodium Chloride) 250 mls @ 250 mls/hr IV Q24H [facility] Last Infusion: 11/10/21 02:44 Dose: Infused Documented by: Labetalol HCl (Labetalol 200 Mg Tablet) 300 mg PO Q12H [facility] Last Admin: 11/10/21 01:59 Dose: Not Given Documented by: Minoxidil (Minoxidil 10 Mg Tablet) 5 mg PO DAILY [facility] Multivitamins (L-Mstmrjt-Gpsxurf C Tablet) 1 each PO DAILY [facility] Ondansetron HCl (Ondansetron 2 Mg/Ml Sdv 2 Ml) 4 mg IVP Q8H PRN PRN Reason: vomiting, or N/V if npo Polyethylene Glycol (Polyethylene Glycol 3350 Pkt 17 Gm) 17 gm PO BID [facility] Last Admin: 11/10/21 00:23 Dose: 17 gm Documented by: Vitals/I&O/Wt Last Vital Signs Temp 100.7 F H 11/09/21 16:41 Pulse 71 11/10/21 07:29 Resp 21 H 11/10/21 07:29 BP 147/75 11/10/21 07:29 Pulse Ox 92 11/10/21 07:29 11/09/21 11/10/21 11/10/21 22:59 06:59 14:59 Intake Total 200.000 / 200.000 455 / 655.000 14.333 / 14.333 Output Total 2600 / 2600 700 / 700 Balance 200.000 / 200.000 -2145 / -1945.000 -685.667 / -685.667 Weight last 48 hrs Weight 93.894 kg Physical Exam Narrative: EXAM NARRATIVE: sob, weak, swollen, low grade temps vs noted heent- nc/at, eomi, anicteric neck supple lungs dull bases, crackles, heart distant abd soft, nt, distended ext 3+ b/l edema neuro a,a, o x 3 Data : 11/10/21 03:23 11/10/21 03:23 Micro: Microbiology 11/09/21 15:18 Blood Culture - Preliminary Blood SPECIMEN COLLECTED 11/09/21 15:16 Blood Culture - Preliminary Blood SPECIMEN COLLECTED A&P Assessment and plan (1) DENISA (acute kidney injury): 31 year old female 1. echo- Normal left ventricular cavity size. Markedly increased left ?ventricular wall thickness. Severe concentric left ventricular ?hypertrophy. Normal left ventricular systolic function. Left ?ventricular ejection fraction is estimated at 55 %. No regional ?wall motion abnormalities. ?--Normal right ventricular size and mildly decreased systolic ?function. ?-- Mild-moderate mitral valve regurgitation. . Moderate to large circumferential pericardial effusion. ?Right atrial diastolic collapse noted. Echocardiographic ?findings suggest a hemodynamically significant pericardial ?effusion.?When compared to previous study dated 05.06.21, percardial ?effusion has increased in size. 2. htn urgency- bp improving- wean down oral meds. dec lasix drip to 10 mgm/ hr and try to wean down 3. stage 4 CKD + from htn.? q if from HEp c+, from drugs, htn, or CRS -pt w/ denisa- cr 2.8 on dmission- from 2 mg/dl-overnight excellent diuresis and cr 2.6 mg/dl -monitor w/ diuresis and bp control -will discuss pericardial effusion w/ cradiologist - Dr. Henderson 4. hgb 9.2- check iron studies- 10%, ferritin 239- iv iron 5. met acidosis from CKD 6. replace k 7. replace vit d- repeat pth in 4- 6 weeks normal tsh meds reviewed seen and examined w/ RN- telehealth visit Status: Acute Plan see above Attestations Medical Necessity Statement*: volume overload, denisa, ckd, htn Time Spent in Patient Care: 16 - 35 minutes (>than 50% of time spent in counselling and/or direct pt care on unit). 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
[2021-11-10] MEDS: famotidine 20 mg Tablet PO ×2 (09:18→18:11)
[2021-11-10] MEDS: potassium chloride ER 20 mEq Tablet 40 MEQ PO (09:18)
[2021-11-10] MEDS: hyDRALAzine 50 mg Tablet PO ×2 (09:18→18:11)
[2021-11-10] MEDS: ergocalciferol (vitamin D2) 50,000 Unit Capsule 50000 UNIT PO (09:19)
[2021-11-10] MEDS: minoxidil 10 mg Tablet 5 MG PO (09:19)
[2021-11-10] MEDS: ferric gluconate 125 MG in sodium chloride 0.9% (100 ml) 100 ML 110 MG IV (09:20)
--- NOTE | 2021-11-10 09:45 | PC.NURSE ---
PATIENT INDWELLING CATHETER DRAINED. 2000 ML DRAINED. PATIENT PROVIDED EXTRA BLANKET. PATIENT RESTING IN BED.
[2021-11-10] MEDS: b-complex-vitamin c Tablet 1 EACH PO (10:08)
[2021-11-10] MEDS: heparin 5,000 unit/mL INJ 1 mL 5000 UNIT SUBCUT (11:39)
[2021-11-10] MEDS: FUROsemide 100 MG in sodium chloride 0.9% 40 ML IV (12:57)
[2021-11-10] MEDS: labetalol 200 mg Tablet 300 MG PO (13:00)
[2021-11-10 13:10] LABS: Alanine Aminotransferase 17 U/L (0-33); Albumin Level 3.2 g/dL (3.5-5.2); Alkaline Phosphatase 104 IU/L (35-105); Anion Gap 17.1 (5-19); Aspartate Amino Transferase 21 U/L (0-32); Blood Urea Nitrogen 29 mg/dL (6-20); Calcium 7.8 mg/dL (8.5-10.5); Carbon Dioxide 21 mmol/L (22-29); Chloride 100 mmol/L (98-107); Glomerular Filtration Rate 19.7 mL/min (90-130); Glucose 105 mg/dL (65-115); Osmolality Calculated 286 mOsm/kg (285-295); Potassium 3.1 mmol/L (3.5-5.1); Sodium 135 mmol/L (136-145); Total Bilirubin 0.4 mg/dL (0.15-1.2); Total Protein 6.2 g/dL (6.6-8.7)
--- NOTE | 2021-11-10 13:58 | PM.PN ---
Subjective Subjective: Interval history: Debo reports she feels better. She has been urinating quite a bit on the Lasix drip. She is less short of breath. Fever has been noted. Medications: Reviewed: Yes Vitals/I&O/Wt Last Vital Signs Temp 100.7 F H 11/09/21 16:41 Pulse 73 11/10/21 09:39 Resp 23 H 11/10/21 09:39 BP 172/85 11/10/21 09:39 Pulse Ox 97 11/10/21 12:39 11/09/21 11/10/21 11/10/21 22:59 06:59 14:59 Intake Total 200.000 / 200.000 455 / 655.000 160.000 / 160.000 Output Total 2600 / 2600 700 / 700 Balance 200.000 / 200.000 -2145 / -1945.000 -540.000 / -540.000 Weight last 48 hrs Weight 93.894 kg Physical Exam Narrative: EXAM NARRATIVE: General exam no distress Neck is supple Cardiovascular regular rate and rhythm Lungs clear Abdomen is soft Extremities no cyanosis clubbing. 1+ edema is noted. Data : 11/10/21 03:23 11/10/21 12:36 Micro: Microbiology 11/09/21 15:29 Urine Culture - Preliminary Urine,Clean Catch Gram Negative Rods 11/10/21 00:00 Legionella Urinary Antigen - Final Urine,Clean Catch 11/10/21 00:00 Bacterial Antigens - Final Urine,Clean Catch 11/09/21 15:18 Blood Culture - Preliminary Blood SPECIMEN COLLECTED 11/09/21 15:16 Blood Culture - Preliminary Blood SPECIMEN COLLECTED A&P Assessment and plan (1) Hypertensive emergency: Appreciate nephrology consultation. Currently on a nicardipine drip which is being tapered. Lasix drip, per nephrology. Continue hydralazine, labetalol, minoxidil Echo demonstrated severe LVH, preserved EF 55%, mild to moderate mitral regurgitation, moderate to large circumferential pericardial effusion Status: Acute (2) CHF (congestive heart failure), NYHA class III: Diuresis with Lasix drip Status: Acute (3) Abdominal pain: Improved with diuresis Status: Acute (4) CKD (chronic kidney disease): Continue to follow closely Renal ultrasound was performed which demonstrated no obstruction. Status: Acute (5) Hepatitis C: Status: Acute (6) Cardiomyopathy: Status: Acute (7) Methamphetamine abuse: Status: Chronic (8) LVH (left ventricular hypertrophy): Status: Acute (9) Pneumonia: IV antibiotics consisting of vancomycin and Zosyn Await sputum culture, blood culture Status: Acute (10) Acute exacerbation of CHF (congestive heart failure): Status: Acute (11) Pericardial effusion: Follow clinically currently. No evidence of tamponade clinically. Status: Acute Attestations Medical Necessity Statement*: Needs continued hospitalization for IV antibiotics secondary to acute hypertensive urgency, pneumonia requiring IV antibiotics Coding Level of Care Code Acute Ranch Hand Supervisor for [facility] Fwd Diagnoses Hypertensive emergency I16.1 CHF (congestive heart failure), NYHA class III I50.9 Abdominal pain R10.9 CKD (chronic kidney disease) N18.9 Hepatitis C B19.20 Cardiomyopathy I42.9 Methamphetamine abuse F15.10 LVH (left ventricular hypertrophy) I51.7 Pneumonia J18.9 Acute exacerbation of CHF (congestive heart failure) I50.9 Pericardial effusion I31.3
--- NOTE | 2021-11-10 14:33 | PC.NURSE ---
PATIENT WYATT CATHETER DRAINED. 2000 ML OUT. PATIENT RESTING IN BED.
--- NOTE | 2021-11-10 15:58 | PC.OT ---
OT EVALUATION HELD PATIENT IS STILL IN ER. WILL ATTEMPT AGAIN TOMORROW.
--- NOTE | 2021-11-10 16:28 | P.CONIM_ITS ---
Providers/Reason For Consult Consulting Physician/Specialty*: Dr. Henderson, Cardiology Reason for Consult*: Pericardial effusion Attending Physician: Mahendra Bowman MD Primary Care Provider: Laurent Wolfe MD History of Present Illness History of Present Illness Debo iLttle is a 31 year old female with h/o IV meth abuse (last use 6 weeks back per patient) , chronic kidney disease, h/o dialysis for 6 months in 2020, history of hepatitis C, uncontrolled HTN and paracardial effusion. She is a current smoker 1/2 PPD. EKG showed sinus rhythm, possible left atrial enlargement. T wave abnormality, consider lateral ischemia. She was hospitalized -August at [facility] in [facility].? She was transferred from [facility] ER with concern for ischemic bowel disease and pericardial effusion.? Patient had not moved her bowels and was having abdominal pain, nonbloody vomiting and decreased oral intake for 10 days prior to presentation.? CT scan showed thickened bowel wall with concern for large pericardial effusion she was started on nitroglycerin drip for elevated blood pressure, ciprofloxacin and Flagyl and was transferred to [facility].? Surgery and cardiology was consulted.? Echocardiogram revealed moderate circumferential pericardial effusion with suspicion for tamponade physiology.? However based on clinical picture and bedside echo no tamponade physiology was noted.? She was placed on clevidipine drip which was transitioned to amlodipine and labetalol.? She was also placed on clonidine patch.? Patient's lactate was normal and with improving abdominal pain decision was made for medical management and serial abdominal exams.? Autoimmune work-up was started and was negative at the time of disch arge.? On 28 August there was concern for smoking or vaping in patient room and she left AMA despite uncontrolled hypertension and pericardial effusion. She has gained 23-24 pounds since her last visit.? She complains of shortness of breath and swelling that as per patient happened overnight.? Patient states she has been compliant to her medications.? She states she has not moved her bowels for the last 6 days.? She has been passing gas.? Blood pressure here on arrival was 270/130.? She is actively coughing and complains of orthopnea and exertional dyspnea along with leg swelling.? She complains of decreased appetite and oral intake due to abdominal distention.? She was seen in office accompanied by Isaak and her daughter. She was sent to ER and subsequently hospitalized. She underwent CT chest/abdomen/pelvis and echo that showed moderate to large circumferential pericardial effusion with mild RA diastolic collapse. She was started on lasiix gtt and has responded well to that with good UO. 9 Medications/Allergies Home Medications Medication Instructions Recorded Confirmed Last Taken Type amlodipine 10 mg tablet 10 mg PO BEDTIME 05/08/21 11/10/21 05/08/21 12:00 History dicyclomine 10 mg capsule 10 mg PO TID PRN 05/08/21 11/10/21 05/08/21 History furosemide 20 mg tablet 20 mg PO DAILY PRN 05/08/21 11/10/21 05/08/21 History minoxidil 10 mg tablet 10 mg PO BID 05/08/21 11/10/21 05/08/21 12:00 History labetalol 300 mg tablet 300 mg PO BID #60 tab 10/08/21 11/10/21 Unknown Rx docusate sodium 100 mg capsule 100 mg PO BID 11/10/21 11/10/21 Unknown History hydralazine 100 mg tablet 100 mg PO TID 11/10/21 11/10/21 Unknown History Allergies Allergy/AdvReac Type Severity Reaction Status Date / Time No Known Allergies Allergy Verified 11/10/21 09:09 Current Medications Generic Name Dose Route Start Last Admin Trade Name Cheyanne PRN Reason Stop Dose Admin Docusate Sodium 100 mg 11/09/21 23:58 11/10/21 09:18 Docusate Sodium 100 Mg Capsule PO 100 mg BID [facility] Administration Ergocalciferol 50,000 unit 11/10/21 09:00 11/10/21 09:19 Ergocalciferol (Vitamin D2) 50,000 Unit Capsule PO 50,000 unit Q7D [facility] Administration Famotidine 20 mg 11/10/21 09:00 11/10/21 09:18 Famotidine 20 Mg Tablet PO 20 mg BID [facility] Administration Heparin Sodium (Porcine) 5,000 unit 11/09/21 23:58 11/10/21 11:39 Heparin 5,000 Unit/Ml Inj 1 Ml SUBCUT 5,000 unit Q12H [facility] Administration Hydralazine HCl 50 mg 11/10/21 09:00 11/10/21 09:18 Hydralazine 50 Mg Tablet PO 50 mg Q8H [facility] Administration Nicardipine/Sodium Chloride 20 mg in 200 mls @ 0 mls/hr 11/09/21 17:45 11/09/21 20:45 Cardene IV Infused .Q0M [facility] Titration Protocol Per Protocol Piperacillin Sod/Tazobactam 50 mls @ 12.5 mls/hr 11/10/21 03:00 11/10/21 11:40 Sod 3.375 gm/ Sodium Chloride IV 12.5 mls/hr Q8H [facility] Administration Protocol Vancomycin HCl 1,000 mg/ 250 mls @ 250 mls/hr 11/10/21 01:30 11/10/21 02:44 Sodium Chloride IV Infused Q24H [facility] Infusion Ferric Sodium Gluconate 125 mg 110 mls @ 110 mls/hr 11/10/21 09:30 11/10/21 11:19 / Sodium Chloride IV 11/17/21 10:29 Infused Q24H [facility] Infusion Furosemide 100 mg/ Sodium 50 mls @ 0 mls/hr 11/10/21 12:00 11/10/21 12:57 Chloride IV 5 mg/hr .Q0M [facility] 2.5 mls/hr Administration Protocol Per Protocol Labetalol HCl 300 mg 11/10/21 00:30 11/10/21 13:00 Labetalol 200 Mg Tablet PO 300 mg Q12H [facility] Administration Minoxidil 5 mg 11/10/21 09:00 11/10/21 09:19 Minoxidil 10 Mg Tablet PO 5 mg DAILY [facility] Administration Multivitamins 1 each 11/10/21 09:00 11/10/21 10:08 S-Bixcezr-Dmzloga C Tablet PO 1 each DAILY [facility] Administration Polyethylene Glycol 17 gm 11/09/21 23:58 11/10/21 09:19 Polyethylene Glycol 3350 Pkt 17 Gm PO 17 gm BID [facility] Administration PFSH Acute PFSH: Medical History CHF (congestive heart failure), NYHA class III CKD (chronic kidney disease) Hypertension Methamphetamine abuse Substance abuse Surgical History S/P cholecystectomy Status post biopsy of kidney Status post insertion of hemodialysis catheter Family History Other CAD (coronary artery disease) Hypertension Social History Alcohol intake: never Other details last substance use: Reports of prior methamphetamine abuse per prior documentation. Juan holcomb Household members: family and other Details: Lives with mother Housing: House Marital status: Single Current occupational status: unemployed Current gender identity: Female Female Reproductive History: Date of last menstrual period: 09/05/20 Vitals/I&O/Wt Last Vital Signs Temp 100.7 F H 11/09/21 16:41 Pulse 79 11/10/21 16:16 Resp 17 11/10/21 16:16 BP 201/100 11/10/21 16:16 Pulse Ox 98 11/10/21 16:16 11/10/21 11/10/21 11/10/21 06:59 14:59 22:59 Intake Total 455 / 655.000 160.000 / 160.000 Output Total 2600 / 2600 700 / 700 Balance -2145 / -1945.000 -540.000 / -540.000 Weight last 48 hrs Weight 207 lb Physical Exam 2 Narrative: EXAM NARRATIVE: Gen: sitting comfortable in bed in mild respiratory distress HEENT: mild pallor, no icterus RS: decreased breath sounds R>L, occasional rales, intermitent coughing CVS: S1, S2 +, No murmur or rub heard MOBILE HOME INSTALLER: AAOx3, No FND Ext: 2+ bilateral edema, no cyanosis Data : 11/10/21 03:23 11/10/21 12:36 Micro: Microbiology 11/09/21 23:49 Chlamydia trachomatis (ALEX[facility]REA) - Final Urine Random Neisseria gonorrhoeae (ALEXANDREA) - Final 11/10/21 00:09 MRSA Culture - Final Nose 11/09/21 15:18 Blood Culture - Preliminary Blood NEGATIVE TO DATE 11/09/21 15:16 Blood Culture - Preliminary Blood NEGATIVE TO DATE 11/09/21 15:29 Urine Culture - Preliminary Urine,Clean Catch Gram Negative Rods 11/10/21 00:00 Legionella Urinary Antigen - Final Urine,Clean Catch 11/10/21 00:00 Bacterial Antigens - Final Urine,Clean Catch Other data: #Echocardiogram?(08/26/21) severely increased left ventricular wall thickness, 24 mm concentric.? No regional wall motion abnormality.? LVEF of 55%.? Diastolic dysfunction.? Moderate circumferential pericardial effusion with evidence of hemodynamic compromise respiratory variation and RV collapse. #CT abdomen (08/25/21)? images were reinterpreted:?Moderate pericardial pleural effusion relative collapse of right heart concerning for tamponade physiology.? Diffuse long segment thickening and mucosal and mural hyperenhancement of small bowel with relative sparing of distal ileum and colon.? Findings are nonspecific but given history of methamphetamine use, splanchnic vasoconstriction and subsequent ischemic injury with reperfusion may have this appearance and is a primary diagnostic consideration.? Focal bladder wall thickening/edema and mucosal sloughing concerning for ischemic changes to bladder.? LVH.? Pancreatic head cystic lesion is indeterminate and may represent a simple pancreatic cyst or intraductal papillary neoplasm among other etiologies.? Further evaluation with MRI may be considered. #Renal ultrasound (Aug): Increased bilateral renal parenchymal echogenicity with loss of corticomedullary differentiation consistent with renal parenchymal disease.? No renal artery stenosis bilaterally.? Moderate pelvic free fluid.? Fluid distended bowel loops in pelvis. #Limited echocardiogram 28 August 2021:?Normal left ventricular size with severely increased left ventricular wall thickness.? Severe concentric left ventricular hypertrophy.? LVEF 55 to 60%.? No regional wall motion abnormality.? Mildly dilated left atrium.? Moderate circumferential echo-free pericardial effusion with mild compression of right atrium by effusion.? Possible RV diastolic compression. A&P Assessment and plan (1) CHF (congestive heart failure), NYHA class III: Decompensated HFpEF -Good UO with symptomatic improvement with lasix drip. Severe concentric LVH on echo. Status: Acute (2) Hypertensive emergency: On nicardipine gtt. -minoxidil, labetalol and hydralazine Status: Acute (3) Pericardial effusion: Clinically does not have tamponade physiology. -f/u echo in next few days to assess size. -continue to monitor closely for any clinical decompensation. Status: Acute (4) CKD (chronic kidney disease): DENISA on CKD -nephrology on board Status: Acute Plan DENISA Hypokalemia Pneumonia H/o methamphetamine abuse Anemia Thank you for allowing me to participate in patient's care. Please feel free to call with questions or concerns. 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
--- NOTE | 2021-11-10 17:00 | PC.NURSE ---
Arrived from ER alert, oriented. denies any chest pain or discomfort. Pt has IV drip running at 2.5 mls/hr. Pt has a Gabriel catheter. Call light provided. Instructed pt to bring her home meds back to her house. Pt stated her Boyfriend will bring it back home. Educated pt on treatments and tests ordered as well as doctor's prescribed meds. pt verbalizes understanding.
--- NOTE | 2021-11-10 18:30 | PC.NURSE ---
Nicardipine drip Pt systolic BP is in upper 200s. Nicardipine ordered started at 5 mg/hr per protocol.
[2021-11-10] MEDS: nicardipine 20 MG/200 ML PREMIX 50 MG IV ×2 (19:27→19:31)
[2021-11-10] MEDS: nicardipine 20 MG/200 ML PREMIX 100 MG IV (22:14)
[2021-11-11] VITALS (85 sets, daily range): BP systolic 136–180; BP diastolic 60–102; PULSE 68–101; RESP 8–34; TEMP 36.6–36.8; O2SAT 88–98
[2021-11-11] MEDS: nicardipine 20 MG/200 ML PREMIX 150 MG IV ×2 (00:07→01:35)
[2021-11-11] MEDS: heparin 5,000 unit/mL INJ 1 mL 5000 UNIT SUBCUT ×3 (00:54→23:16)
[2021-11-11] MEDS: labetalol 200 mg Tablet 300 MG PO ×3 (00:56→23:15)
[2021-11-11] MEDS: vancomycin 1,000 MG in sodium chloride 0.9% 250 ML 250 MG IV (01:27)
[2021-11-11] MEDS: hyDRALAzine 50 mg Tablet PO ×2 (01:41→09:25)
[2021-11-11 03:03] LABS: Basophils # 0.1 10^3/uL (0.0-0.1); Basophils % 0.8 %; Eosinophils # 0.4 10^3/uL (0.0-0.8); Eosinophils % 4.7 %; Hematocrit 29.3 % (37.0-47.0); Hemoglobin 9.6 g/dL (11.5-15.3); Lymphocytes # 1.5 10^3/uL (0.8-4.8); Lymphocytes % 17.2 %; Mean Corpuscular HGB Conc 32.8 g/dL (30.0-36.0); Mean Corpuscular Hemoglobin 29.6 pg (28.0-34.0); Mean Corpuscular Volume 90.4 fl (81-99); Monocytes % 11.4 %; Neutrophils % 65.3 %; Nucleated Red Blood Cells % 0 %; Platelet Count 249 10^3/cmm (130-400); Red Blood Count 3.24 10^6/uL (4.1-5.3); Red Cell Distribution Width 13.2 % (12.1-15.1); White Blood Count 8.6 10^3/uL (4.0-10.0)
[2021-11-11] MEDS: nicardipine 20 MG/200 ML PREMIX 30 MG IV ×2 (03:07→09:49)
[2021-11-11] MEDS: FUROsemide 100 MG in sodium chloride 0.9% 40 ML IV (03:26)
[2021-11-11 03:28] LABS: Alanine Aminotransferase 16 U/L (0-33); Alkaline Phosphatase 105 IU/L (35-105); Aspartate Amino Transferase 19 U/L (0-32); Blood Urea Nitrogen 31 mg/dL (6-20); Calcium 7.7 mg/dL (8.5-10.5); Carbon Dioxide 22 mmol/L (22-29); Chloride 103 mmol/L (98-107); Glomerular Filtration Rate 16.9 mL/min (90-130); Glucose 151 mg/dL (65-115); Magnesium 1.9 mg/dL (1.7-2.3); Osmolality Calculated 293 mOsm/kg (285-295); Phosphorus 3.8 mg/dL (2.5-4.5); Sodium 137 mmol/L (136-145); Total Bilirubin 0.3 mg/dL (0.15-1.2)
[2021-11-11] MEDS: piperacillin-tazobactam 3.375 GM in sodium chloride 0.9% (plus) 50 ML IV ×3 (03:30→17:39)
[2021-11-11] MEDS: potassium chloride ER 20 mEq Tablet 40 MEQ PO ×4 (05:45→20:14)
--- NOTE | 2021-11-11 08:08 | P.PN_ITS ---
Subjective Subjective: Interval history: feels better. dec edema. no nv/f/c/oliver/d Medications: Reviewed: Yes Medication Review Details: Current Medications Acetaminophen (Acetaminophen 325 Mg Tablet) 650 mg PO Q6H PRN PRN Reason: Mild/Mod Pain Or Temp >/= 101 Docusate Sodium (Docusate Sodium 100 Mg Capsule) 100 mg PO BID [facility] Last Admin: 11/10/21 18:11 Dose: 100 mg Documented by: Ergocalciferol (Ergocalciferol (Vitamin D2) 50,000 Unit Capsule) 50,000 unit PO Q7D [facility] Last Admin: 11/10/21 09:19 Dose: 50,000 unit Documented by: Famotidine (Famotidine 20 Mg Tablet) 20 mg PO BID [facility] Last Admin: 11/10/21 18:11 Dose: 20 mg Documented by: Heparin Sodium (Porcine) (Heparin 5,000 Unit/Ml Inj 1 Ml) 5,000 unit SUBCUT Q12H [facility] Last Admin: 11/11/21 00:54 Dose: 5,000 unit Documented by: Hydralazine HCl (Hydralazine 50 Mg Tablet) 50 mg PO Q8H [facility] Last Admin: 11/11/21 01:41 Dose: 50 mg Documented by: Nicardipine/Sodium Chloride (Cardene) 20 mg in 200 mls @ 0 mls/hr IV .Q0M [facility]; Protocol Last Admin: 11/11/21 03:07 Dose: 3 mg/hr, 30 mls/hr Documented by: Piperacillin Sod/Tazobactam (Sod 3.375 gm/ Sodium Chloride) 50 mls @ 12.5 mls/hr IV Q8H [facility]; Protocol Last Admin: 11/11/21 03:30 Dose: 12.5 mls/hr Documented by: Vancomycin HCl 1,000 mg/ (Sodium Chloride) 250 mls @ 250 mls/hr IV Q24H [facility] Last Infusion: 11/11/21 03:33 Dose: Infused Documented by: Ferric Sodium Gluconate 125 mg (/ Sodium Chloride) 110 mls @ 110 mls/hr IV Q24H [facility] Stop: 11/17/21 10:29 Last Infusion: 11/10/21 11:19 Dose: Infused Documented by: Furosemide 100 mg/ Sodium (Chloride) 50 mls @ 0 mls/hr IV .Q0M [facility]; Protocol Last Admin: 11/11/21 03:26 Dose: 5 mg/hr, 2.5 mls/hr Documented by: Labetalol HCl (Labetalol 200 Mg Tablet) 300 mg PO Q12H [facility] Last Admin: 11/11/21 00:56 Dose: 300 mg Documented by: Minoxidil (Minoxidil 10 Mg Tablet) 5 mg PO DAILY [facility] Last Admin: 11/10/21 09:19 Dose: 5 mg Documented by: Multivitamins (D-Diuisye-Drspxuz C Tablet) 1 each PO DAILY [facility] Last Admin: 11/10/21 10:08 Dose: 1 each Documented by: Ondansetron HCl (Ondansetron 2 Mg/Ml Sdv 2 Ml) 4 mg IVP Q8H PRN PRN Reason: vomiting, or N/V if npo Polyethylene Glycol (Polyethylene Glycol 3350 Pkt 17 Gm) 17 gm PO BID [facility] Last Admin: 11/10/21 18:11 Dose: 17 gm Documented by: Vitals/I&O/Wt Last Vital Signs Temp 98 F 11/11/21 03:47 Pulse 73 11/11/21 05:02 Resp 12 11/11/21 03:47 BP 146/64 11/11/21 03:47 Pulse Ox 90 11/11/21 03:47 11/10/21 11/11/21 11/11/21 22:59 06:59 14:59 Intake Total 228.750 / 188.162 1910.208 / 1684.958 Output Total 2800 / 3500 Balance 228.750 / -311.250 -1503.792 / -1815.042 Weight last 48 hrs Weight 93.894 kg Physical Exam Narrative: EXAM NARRATIVE: comfortbale in bed, NARD, afebrile vs noted heent- nc/at, eomi, anicteric neck supple lungs dull bases, dec crackles, heart reg abd soft, nt, ND, + bs ext 2+ b/l edema neuro a,a, o x 3 Data : 11/11/21 02:36 11/11/21 02:36 Micro: Microbiology 11/09/21 23:49 Chlamydia trachomatis (ALEXANDREA) - Final Urine Random Neisseria gonorrhoeae (ALEXANDREA) - Final 11/10/21 00:09 MRSA Culture - Final Nose 11/09/21 15:18 Blood Culture - Preliminary Blood NEGATIVE TO DATE 11/09/21 15:16 Blood Culture - Preliminary Blood NEGATIVE TO DATE 11/09/21 15:29 Urine Culture - Preliminary Urine,Clean Catch Gram Negative Rods 11/10/21 00:00 Legionella Urinary Antigen - Final Urine,Clean Catch 11/10/21 00:00 Bacterial Antigens - Final Urine,Clean Catch A&P Assessment and plan (1) DENISA (acute kidney injury): 31 year old female 1. echo- Normal left ventricular cavity size. Markedly increased left ?ventricular wall thickness. Severe concentric left ventricular ?hypertrophy. Normal left ventricular systolic function. Left ?ventricular ejection fraction is estimated at 55 %. No regional ?wall motion abnormalities. ?--Normal right ventricular size and mildly decreased systolic ?function. ?-- Mild-moderate mitral valve regurgitation. . Moderate to large circumferential pericardial effusion. ?Right atrial diastolic collapse noted. Echocardiographic ?findings suggest a hemodynamically significant pericardial ?effusion.?When compared to previous study dated 05.06.21, percardial ?effusion has increased in size. -inc lasix drip replace k and mag as needed 2. htn urgency- bp improving- wean down oral meds. 3. stage 4 CKD + from htn.? q if from HEp c+, from drugs, htn, or CRS -pt w/ denisa- cr 2.8 on admission- from 2 mg/dl-overnight excellent diuresis and cr 2.6 mg/dl- -monitor w/ diuresis and bp control -will discuss pericardial effusion w/ cradiologist - Dr. Henderson 4. hgb 9.2- check iron studies- 10%, ferritin 239- iv iron 5. met acidosis from CKD 6. replace k 7. replace vit d- repeat pth in 4- 6 weeks normal tsh meds reviewed seen and examined w/ RN- telehealth visit Status: Acute Plan see above Attestations Medical Necessity Statement*: chf, denisa, ckd stage 4, htn urgency Time Spent in Patient Care: 16 - 35 minutes (>than 50% of time spent in counselling and/or direct pt care on unit) . Coding Level of Care Code Acute Customer Support Analyst for [facility] Kwame Diagnoses DENISA (acute kidney injury) N17.9
[2021-11-11] MEDS: docusate sodium 100 mg Capsule PO ×2 (09:24→17:38)
[2021-11-11] MEDS: polyethylene glycol 3350 Pkt 17 gm PO ×2 (09:24→17:35)
[2021-11-11] MEDS: b-complex-vitamin c Tablet 1 EACH PO (09:25)
[2021-11-11] MEDS: famotidine 20 mg Tablet PO ×2 (09:25→17:38)
[2021-11-11] MEDS: ferric gluconate 125 MG in sodium chloride 0.9% (100 ml) 100 ML 110 MG IV (09:42)
[2021-11-11] MEDS: minoxidil 10 mg Tablet 5 MG PO (09:42)
--- NOTE | 2021-11-11 09:57 | PM.PN ---
Subjective Subjective: Interval history: She feels better. Episodes of bradycardia with heart rate running in the high 40s at night. Excellent urine output with Lasix drip; -6L Medications: Medication Review Details: Current Medications Acetaminophen (Acetaminophen 325 Mg Tablet) 650 mg PO Q6H PRN PRN Reason: Mild/Mod Pain Or Temp >/= 101 Docusate Sodium (Docusate Sodium 100 Mg Capsule) 100 mg PO BID [facility] Last Admin: 11/11/21 09:24 Dose: 100 mg Documented by: Ergocalciferol (Ergocalciferol (Vitamin D2) 50,000 Unit Capsule) 50,000 unit PO Q7D [facility] Last Admin: 11/10/21 09:19 Dose: 50,000 unit Documented by: Famotidine (Famotidine 20 Mg Tablet) 20 mg PO BID [facility] Last Admin: 11/11/21 09:25 Dose: 20 mg Documented by: Heparin Sodium (Porcine) (Heparin 5,000 Unit/Ml Inj 1 Ml) 5,000 unit SUBCUT Q12H [facility] Last Admin: 11/11/21 12:56 Dose: 5,000 unit Documented by: Hydralazine HCl (Hydralazine 50 Mg Tablet) 100 mg PO Q8H [facility] Nicardipine/Sodium Chloride (Cardene) 20 mg in 200 mls @ 0 mls/hr IV .Q0M [facility]; Protocol Last Admin: 11/11/21 13:49 Dose: 5.5 mg/hr, 55 mls/hr Documented by: Piperacillin Sod/Tazobactam (Sod 3.375 gm/ Sodium Chloride) 50 mls @ 12.5 mls/hr IV Q8H [facility]; Protocol Last Admin: 11/11/21 10:41 Dose: 12.5 mls/hr Documented by: Ferric Sodium Gluconate 125 mg (/ Sodium Chloride) 110 mls @ 110 mls/hr IV Q24H [facility] Stop: 11/17/21 10:29 Last Admin: 11/11/21 09:42 Dose: 110 mls/hr Documented by: Furosemide 100 mg/ Sodium (Chloride) 50 mls @ 0 mls/hr IV .Q0M [facility]; Protocol Last Titration: 11/11/21 10:46 Dose: 7.5 mg/hr, 3.75 mls/hr Documented by: Labetalol HCl (Labetalol 200 Mg Tablet) 300 mg PO Q12H [facility] Last Admin: 11/11/21 12:57 Dose: 300 mg Documented by: Minoxidil (Minoxidil 10 Mg Tablet) 5 mg PO DAILY [facility] Last Admin: 11/11/21 09:42 Dose: 5 mg Documented by: Multivitamins (H-Kfwgicg-Uionpnb C Tablet) 1 each PO DAILY [facility] Last Admin: 11/11/21 09:25 Dose: 1 each Documented by: Ondansetron HCl (Ondansetron 2 Mg/Ml Sdv 2 Ml) 4 mg IVP Q8H PRN PRN Reason: vomiting, or N/V if npo Polyethylene Glycol (Polyethylene Glycol 3350 Pkt 17 Gm) 17 gm PO BID [facility] Last Admin: 11/11/21 09:24 Dose: 17 gm Documented by: Vitals/I&O/Wt Last Vital Signs Temp 98 F 11/11/21 03:47 Pulse 73 11/11/21 05:02 Resp 12 11/11/21 03:47 BP 146/64 11/11/21 03:47 Pulse Ox 90 11/11/21 03:47 11/10/21 11/11/21 11/11/21 22:59 06:59 14:59 Intake Total 228.750 / 253.431 9525.208 / 1684.958 251 / 251 Output Total 2800 / 3500 1999 Balance 228.750 / -311.250 -1503.792 / -1815.042 -1749 / -1749 Weight last 48 hrs Weight 207 lb Physical Exam Narrative: EXAM NARRATIVE: Gen: sitting comfortable in bed in mild respiratory distress HEENT: mild pallor, no icterus RS: decreased breath sounds at bases. no rales PA: soft, NTND. 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 Ext: 2+ bilateral edema, no cyanosis Data : 11/11/21 02:36 11/11/21 02:36 Micro: Microbiology 11/09/21 23:49 Chlamydia trachomatis (ALEXANDREA) - Final Urine Random Neisseria gonorrhoeae (ALEXANDREA) - Final 11/10/21 00:09 MRSA Culture - Final Nose 11/09/21 15:18 Blood Culture - Preliminary Blood NEGATIVE TO DATE 11/09/21 15:16 Blood Culture - Preliminary Blood NEGATIVE TO DATE 11/09/21 15:29 Urine Culture - Preliminary Urine,Clean Catch Gram Negative Rods 11/10/21 00:00 Legionella Urinary Antigen - Final Urine,Clean Catch 11/10/21 00:00 Bacterial Antigens - Final Urine,Clean Catch A&P Assessment and plan (1) CHF (congestive heart failure), NYHA class III: Decompensated HFpEF -Good UO with symptomatic improvement with lasix drip. Severe concentric LVH on echo. Status: Acute (2) Hypertensive emergency: On nicardipine gtt. -minoxidil, labetalol and hydralazine -Increase hydralazine 200 mg 3 times daily Status: Acute (3) Pericardial effusion: Clinically does not have tamponade physiology. -f/u echo in next few days to assess size. -continue to monitor closely for any clinical decompensation. Status: Acute (4) CKD (chronic kidney disease): DENISA on CKD -nephrology on board Status: Acute Plan DENISA Hypokalemia Pneumonia H/o methamphetamine abuse Anemia Thank you for allowing me to participate in patient's care. Please feel free to call with questions or concerns. 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
[2021-11-11 11:54] LABS: COMPLEMENT COMPONENT C3C 134 mg/dL (83-193); COMPLEMENT COMPONENT C4C 18 mg/dL (15-57)
[2021-11-11 11:57] LABS: CENTROMERE B ANTIBODY <1.0 NEG AI (<1.0 NEG); JO-1 ANTIBODY <1.0 NEG AI (<1.0 NEG); RNP ANTIBODY <1.0 NEG AI (<1.0 NEG); SCL-70 ANTIBODY <1.0 NEG AI (<1.0 NEG); SJOGREN'S ANTIBODY (SS-A) <1.0 NEG AI (<1.0 NEG); SM ANTIBODY <1.0 NEG AI (<1.0 NEG); SS-B <1.0 NEG AI (<1.0 NEG)
[2021-11-11 13:04] LABS: COMPLEMENT, TOTAL (CH50) 25 U/mL (31-60)
--- NOTE | 2021-11-11 13:09 | P.PN_ITS ---
Subjective Subjective: Interval history: Feels better. Less short of breath. Significant diuresis over the last 24 hours. Medications: Reviewed: Yes Vitals/I&O/Wt Last Vital Signs Temp 98 F 11/11/21 03:47 Pulse 80 11/11/21 11:30 Resp 22 H 11/11/21 11:30 BP 164/98 11/11/21 11:30 Pulse Ox 93 11/11/21 11:30 11/10/21 11/11/21 11/11/21 22:59 06:59 14:59 Intake Total 228.750 / 473.790 4012.208 / 1684.958 629.333 / 629.333 Output Total 2800 / 3500 1999 / 1999 Balance 228.750 / -311.250 -1503.792 / -1815.042 -1370.667 / -1370.667 Physical Exam Narrative: EXAM NARRATIVE: General exam no distress Neck is supple Cardiovascular regular rate and rhythm Lungs clear Abdomen is soft Extremities no cyanosis clubbing. No significant edema Data : 11/11/21 02:36 11/11/21 02:36 Micro: Microbiology 11/09/21 23:49 Chlamydia trachomatis (ALEXANDREA) - Final Urine Random Neisseria gonorrhoeae (ALEXANDREA) - Final 11/10/21 00:09 MRSA Culture - Final Nose 11/09/21 15:18 Blood Culture - Preliminary Blood NEGATIVE TO DATE 11/09/21 15:16 Blood Culture - Preliminary Blood NEGATIVE TO DATE 11/09/21 15:29 Urine Culture - Preliminary Urine,Clean Catch Gram Negative Rods 11/10/21 00:00 Legionella Urinary Antigen - Final Urine,Clean Catch 11/10/21 00:00 Bacterial Antigens - Final Urine,Clean Catch A&P Assessment and plan (1) Hypertensive emergency: Appreciate nephrology consultation. Currently on a nicardipine drip which is being tapered. Lasix drip, per nephrology. This was increased this morning Creatinine has worsened slightly Continue hydralazine, labetalol, minoxidil Echo demonstrated severe LVH, preserved EF 55%, mild to moderate mitral regurgitation, moderate to large circumferential pericardial effusion. Appreciate cardiology consultation Status: Acute (2) CHF (congestive heart failure), NYHA class III: Diuresis with Lasix drip Status: Acute (3) Abdominal pain: Improved with diuresis Status: Acute (4) CKD (chronic kidney disease): Continue to follow closely Renal ultrasound was performed which demonstrated no obstruction. Status: Acute (5) Hepatitis C: Status: Acute (6) Cardiomyopathy: Status: Acute (7) Methamphetamine abuse: Status: Chronic (8) LVH (left ventricular hypertrophy): Status: Acute (9) Pneumonia: IV antibiotics consisting of vancomycin and Zosyn MRSA PCR negative. Urine culture growing gram-negative rods. Blood culture ne gative to date. Discontinue vancomycin. Status: Acute (10) Acute exacerbation of CHF (congestive heart failure): Status: Acute (11) Pericardial effusion: Follow clinically currently. No evidence of tamponade clinically. 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
[2021-11-11 13:47] LABS: PROTEIN, TOTAL 5.9 g/dL (6.1-8.1)
[2021-11-11 13:47] LABS: Creatinine, Random Urine 30 mg/dL (20-275); Protein, Total, Random 178 mg/dL (5-24); Protein/Creatinine Ratio 5.933 (0.021-0.161); Protein/Creatinine Ratio 5933 mg/g creat (21-161)
[2021-11-11] MEDS: nicardipine 20 MG/200 ML PREMIX 55 MG IV ×2 (13:49→17:35)
[2021-11-11 14:18] LABS: KAPPA LIGHT CHAIN, FREE, SERUM 148.7 mg/L (3.3-19.4); KAPPA/LAMBDA LIGHT CHAINS FREE 1.23 (0.26-1.65); LAMBDA LIGHT CHAIN, FREE, SERU 120.8 mg/L (5.7-26.3)
[2021-11-11 15:38] LABS: ALBUMIN 2.7 g/dL (3.8-4.8); ALPHA 1 GLOBULIN 0.5 g/dL (0.2-0.3); ALPHA 2 GLOBULIN 0.8 g/dL (0.5-0.9); BETA 1 GLOBULIN 0.4 g/dL (0.4-0.6); BETA 2 GLOBULIN 0.3 g/dL (0.2-0.5); GAMMA GLOBULIN 1.2 g/dL (0.8-1.7)
[2021-11-11 16:27] LABS: THYROID PEROXIDASE ANTIBODIES 2 IU/mL (<9)
[2021-11-11] MEDS: hyDRALAzine 50 mg Tablet 100 MG PO ×2 (17:39→23:15)
[2021-11-11 18:38] LABS: Alanine Aminotransferase 17 U/L (0-33); Alkaline Phosphatase 90 IU/L (35-105); Anion Gap 17.6 (5-19); Aspartate Amino Transferase 20 U/L (0-32); Blood Urea Nitrogen 27 mg/dL (6-20); Calcium 8.8 mg/dL (8.5-10.5); Carbon Dioxide 21 mmol/L (22-29); Chloride 101 mmol/L (98-107); Globulin 3.3 g/dL (1.3-4.6); Glomerular Filtration Rate 17.5 mL/min (90-130); Glucose 117 mg/dL (65-115); Osmolality Calculated 288 mOsm/kg (285-295); Phosphorus 3.1 mg/dL (2.5-4.5); Potassium 3.6 mmol/L (3.5-5.1); Sodium 136 mmol/L (136-145); Total Bilirubin 0.2 mg/dL (0.15-1.2); Total Protein 6.3 g/dL (6.6-8.7)
[2021-11-11] MEDS: acetaminophen 325 mg Tablet 650 MG PO (20:05)
[2021-11-11] MEDS: nicardipine 20 MG/200 ML PREMIX 75 MG IV ×2 (20:31→23:15)
[2021-11-11] MEDS: hyDROXYzine 25 mg Capsule PO (21:06)
--- NOTE | 2021-11-11 21:08 | PC.NURSE ---
Received report from POONAM Zambrano. Patient resting in bed watching TV. Patient c/o pain, burning and generalized discomfort to her private area. Will collect and complete a UA when 24 hour collection is complete this evening. Administered Tylenol as ordered and documented for discomfort. Patient requested something to help with sleep. Informed Dr Person and received onetime order for hydroxizine 25mg PO for sleep. Instructed patient on all medications. Patient verbalized complete understanding. Patient denies other needs presently. No other distresses observed. Cardene drip continues at 55ml/hr presently. BP as documented.
[2021-11-11 23:39] LABS: Add Urine Microscopic? YES; Bilirubin Urine Neg (Negative); Blood Urine Neg (Negative); Glucose Urine UA Norm (Normal); Ketones Urine Negative (Negative); Leukocyte Esterase Urine Negative (Negative); Nitrate Urine Negative (Negative); Protein Urine 1+ (Negative); Specific Gravity, Urine 1.005 (1.005-1.030); Urine Appearance Clear (CLEAR); Urine Color Straw (Yellow); Urobilinogen Urine Norm (Negative); pH Urine 7 (5-7)
[2021-11-11 23:45] LABS: Bacteria Urine TRACE /hpf
[2021-11-12] VITALS (66 sets, daily range): BP systolic 131–197; BP diastolic 51–107; PULSE 52–97; RESP 13–28; TEMP 36.4; O2SAT 57–98
[2021-11-12] MEDS: nicardipine 20 MG/200 ML PREMIX 55 MG IV ×2 (02:27→06:23)
[2021-11-12] MEDS: piperacillin-tazobactam 3.375 GM in sodium chloride 0.9% (plus) 50 ML IV ×3 (02:27→18:59)
[2021-11-12 03:45] LABS: Basophils # 0.1 10^3/uL (0.0-0.1); Basophils % 0.8 %; Eosinophils # 0.5 10^3/uL (0.0-0.8); Eosinophils % 5.4 %; Hematocrit 28.5 % (37.0-47.0); Lymphocytes # 1.5 10^3/uL (0.8-4.8); Lymphocytes % 16.6 %; Mean Corpuscular HGB Conc 31.6 g/dL (30.0-36.0); Mean Corpuscular Hemoglobin 28.7 pg (28.0-34.0); Mean Corpuscular Volume 90.8 fl (81-99); Mean Platelet Volume 10.8 fL (7.4-10.4); Monocytes % 11.4 %; Neutrophils # 5.77 10^3/uL (1.8-7.7); Neutrophils % 65.3 %; Nucleated Red Blood Cells % 0 %; Platelet Count 267 10^3/cmm (130-400); Red Blood Count 3.14 10^6/uL (4.1-5.3); Red Cell Distribution Width 13.4 % (12.1-15.1); White Blood Count 8.8 10^3/uL (4.0-10.0)
[2021-11-12 04:22] LABS: Alanine Aminotransferase 16 U/L (0-33); Albumin Level 2.8 g/dL (3.5-5.2); Alkaline Phosphatase 92 IU/L (35-105); Aspartate Amino Transferase 20 U/L (0-32); Blood Urea Nitrogen 27 mg/dL (6-20); Calcium 8.7 mg/dL (8.5-10.5); Carbon Dioxide 20 mmol/L (22-29); Chloride 104 mmol/L (98-107); Creatinine Clr Calc Pharmacy 29.0036; Globulin 3.2 g/dL (1.3-4.6); Glomerular Filtration Rate 18.2 mL/min (90-130); Glucose 90 mg/dL (65-115); Magnesium 1.9 mg/dL (1.7-2.3); Osmolality Calculated 291 mOsm/kg (285-295); Phosphorus 3.5 mg/dL (2.5-4.5); Sodium 138 mmol/L (136-145); Total Bilirubin 0.2 mg/dL (0.15-1.2)
--- NOTE | 2021-11-12 06:00 | USCV_ITS ---
Debo Little Age: 31 Gender: F : 1990 Exam Date: 11/12/2021 06:19 Ordering Phys: Lizzy Henderson MD ([email or web address]) Technologist: [email or web address] [place] [facility] [place]: Pericardial effusion BP: 227 / 128 HR: 71 Rhythm: Sinus Technical Quality: Adequate MEASUREMENTS (Male / Female) Normal Values 2D ECHO LV Diastolic Diameter PLAX 4.0 cm 4.2 - 5.9 / 3.9 - 5.3 cm LV Systolic Diameter PLAX 2.8 cm IVS Diastolic Thickness 2.2 cm 0.6 - 1.0 / 0.6 - 0.9 cm IVS Systolic Thickness 2.2 cm LVPW Diastolic Thickness 3.4 cm 0.6 - 1.0 / 0.6 - 0.9 cm LVPW Systolic Thickness 3.3 cm LVOT Diameter 2.2 cm LV Ejection Fraction 2D Teich 57.5 % LV Ejection Fraction MOD 2C 78.3 % LV Ejection Fraction 2C AL 78.1 % LA Diameter 3.5 cm Aorta at Sinotubular Diameter 2.1 cm M-MODE Aortic Annulus Diameter 2.9 cm LA Ao Ratio MM 1.3 MV E Point Septal Separation 0.6 cm DOPPLER MV Area PHT 3.0 cm squared Mitral E to A Ratio 1.4 MV E' Velocity 90.0 cm/s TR Peak Velocity 234.8 cm/s TR Peak Gradient 22.1 mmHg Right Atrial Pressure 8.0 mmHg Pulmonary Artery Systolic Pressu 30.1 mmHg FINDINGS Left Ventricle Normal left ventricular cavity size. Severely increased left ventricular wall thickness. Severe concentric left ventricular hypertrophy. Normal left ventricular systolic function. Left ventricular ejection fraction is estimated at 65 %. No regional wall motion abnormality. Right Ventricle Normal right ventricular size and systolic function. Right ventricular systolic pressure 42 mmHg. Right Atrium Normal right atrial size. Right atrial pressure estimated at 15 mmHg. Left Atrium Mildly increased left atrial size. Mitral Valve Moderately thickened mitral valve. Trace mitral valve regurgitation. Aortic Valve Structurally normal trileaflet aortic valve. Tricuspid Valve Structurally normal tricuspid valve. Trace to mild tricuspid valve regurgitation. Pulmonic Valve Structurally normal pulmonic valve. Trace pulmonary valve regurgitation. Pericardium Moderate to large circumferential pericardial effusion (1.4 cm along right ventricle free wall and 2.3 cm posteriorly along left ventricle. No evidence of hemodynamic compromise based on the study. Aorta Normal size aortic root and proximal ascending aorta. Mildly dilated inferior vena cava with <50%respiratory variation. CONCLUSIONS 1. Normal left ventricular cavity size and systolic function. Severe concentric left ventricular hypertrophy. Left ventricular ejection fraction is estimated at 65 %. No regional wall motion abnormality. 2. Right atrial pressure estimated at 15 mmHg. 3. Pulmonary artery pressure estimated at 42 mmHg. 4. Moderate to large circumferential pericardial effusion (1.4 cm along right ventricle free wall and 2.3 cm posteriorly along left ventricle. No evidence of hemodynamic compromise based on the study. 5. No significant change in size of effusion when compared to 11/09/2021. Lizzy Henderson MD (Electronically Signed) Final Date: 12 November 2021 17:51 S
--- NOTE | 2021-11-12 07:07 | PM.PN ---
Subjective Subjective: Interval history: She feels better. Episodes of bradycardia with heart rate running in the high 40s at night. Excellent urine output with Lasix drip; -4.7 L in last 24 hr and -8.4L LOS Medications: Reviewed: Yes Medication Review Details: Current Medications Acetaminophen (Acetaminophen 325 Mg Tablet) 650 mg PO Q6H PRN PRN Reason: Mild/Mod Pain Or Temp >/= 101 Last Admin: 11/11/21 20:05 Dose: 650 mg Documented by: Docusate Sodium (Docusate Sodium 100 Mg Capsule) 100 mg PO BID [facility] Last Admin: 11/11/21 17:38 Dose: 100 mg Documented by: Ergocalciferol (Ergocalciferol (Vitamin D2) 50,000 Unit Capsule) 50,000 unit PO Q7D [facility] Last Admin: 11/10/21 09:19 Dose: 50,000 unit Documented by: Famotidine (Famotidine 20 Mg Tablet) 20 mg PO BID [facility] Last Admin: 11/11/21 17:38 Dose: 20 mg Documented by: Heparin Sodium (Porcine) (Heparin 5,000 Unit/Ml Inj 1 Ml) 5,000 unit SUBCUT Q12H [facility] Last Admin: 11/11/21 23:16 Dose: 5,000 unit Documented by: Hydralazine HCl (Hydralazine 50 Mg Tablet) 100 mg PO Q8H [facility] Last Admin: 11/11/21 23:15 Dose: 100 mg Documented by: Hydroxyzine Pamoate (Hydroxyzine 25 Mg Capsule) 25 mg PO ONCE PRN PRN Reason: ANXIETY Last Admin: 11/11/21 21:06 Dose: 25 mg Documented by: Nicardipine/Sodium Chloride (Cardene) 20 mg in 200 mls @ 0 mls/hr IV .Q0M [facility]; Protocol Last Admin: 11/12/21 06:23 Dose: 5.5 mg/hr, 55 mls/hr Documented by: Piperacillin Sod/Tazobactam (Sod 3.375 gm/ Sodium Chloride) 50 mls @ 12.5 mls/hr IV Q8H [facility]; Protocol Last Infusion: 11/12/21 05:53 Dose: Infused Documented by: Ferric Sodium Gluconate 125 mg (/ Sodium Chloride) 110 mls @ 110 mls/hr IV Q24H [facility] Stop: 11/17/21 10:29 Last Infusion: 11/11/21 20:16 Dose: Infused Documented by: Labetalol HCl (Labetalol 200 Mg Tablet) 300 mg PO Q12H [facility] Last Admin: 11/11/21 23:15 Dose: 300 mg Documented by: Minoxidil (Minoxidil 10 Mg Tablet) 5 mg PO DAILY [facility] Last Admin: 11/11/21 09:42 Dose: 5 mg Documented by: Multivitamins (X-Thjxqbi-Pioqbdl C Tablet) 1 each PO DAILY [facility] Last Admin: 11/11/21 09:25 Dose: 1 each Documented by: Ondansetron HCl (Ondansetron 2 Mg/Ml Sdv 2 Ml) 4 mg IVP Q8H PRN PRN Reason: vomiting, or N/V if npo Polyethylene Glycol (Polyethylene Glycol 3350 Pkt 17 Gm) 17 gm PO BID [facility] Last Admin: 11/11/21 17:35 Dose: 17 gm Documented by: Vitals/I&O/Wt Last Vital Signs Temp 97.6 F 11/12/21 04:00 Pulse 72 11/12/21 06:00 Resp 21 H 11/12/21 06:00 BP 145/78 11/12/21 06:00 Pulse Ox 90 11/12/21 06:00 11/11/21 11/12/21 11/12/21 22:59 06:59 14:59 Intake Total 1071.667 / 2310.000 890.0 / 3200.000 Output Total 1650 / 5250 2650 / 7900 Balance -578.333 / -2940.000 -1760.0 / -4700.000 Physical Exam Narrative: EXAM NARRATIVE: Gen: sitting comfortable in bed in mild respiratory distress HEENT: mild pallor, no icterus RS: decreased breath sounds at bases. no rales PA: soft, NTND. 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 -transitioned to PO lasix per nephrology. Severe concentric LVH on echo. Status: Acute (2) Hypertensive emergency: On nicardipine gtt. -on labetalol and hydralazine to 100 mg 3 times daily -increase minoxidil to 5 mg BID -taper off cardene drip Status: Acute (3) Pericardial effusion: Clinically does not have tamponade physiology. -f/u echo with no change in size of pericardial effusion with no evidence of hemodynamic compromise. -continue to monitor closely for any clinical decompensation. Status: Acute (4) CKD (chronic kidney disease): DENISA on CKD -nephrology on board Status: Acute Plan DENISA Hypokalemia: Resolved Pneumonia: On antibiotics per primary team H/o methamphetamine abuse Anemia Thank you for allowing me to participate in patient's care. Please feel free to call with questions or concerns. 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
[2021-11-12 08:22] LABS: ANA SCREEN, IFA NEGATIVE (NEGATIVE)
[2021-11-12] MEDS: polyethylene glycol 3350 Pkt 17 gm PO ×2 (09:09→18:04)
[2021-11-12] MEDS: docusate sodium 100 mg Capsule PO ×2 (09:10→18:02)
[2021-11-12] MEDS: famotidine 20 mg Tablet PO ×2 (09:10→18:03)
[2021-11-12] MEDS: hyDRALAzine 50 mg Tablet 100 MG PO ×3 (09:10→20:57)
[2021-11-12] MEDS: minoxidil 10 mg Tablet 5 MG PO ×2 (09:10→18:02)
[2021-11-12] MEDS: b-complex-vitamin c Tablet 1 EACH PO (09:10)
--- NOTE | 2021-11-12 09:11 | P.PN_ITS ---
Subjective Subjective: Interval history: feels better. wants to go home. no n/v/f/c/oliver/d. still htn Medications: Reviewed: Yes Medication Review Details: Current Medications Acetaminophen (Acetaminophen 325 Mg Tablet) 650 mg PO Q6H PRN PRN Reason: Mild/Mod Pain Or Temp >/= 101 Last Admin: 11/11/21 20:05 Dose: 650 mg Documented by: Docusate Sodium (Docusate Sodium 100 Mg Capsule) 100 mg PO BID [facility] Last Admin: 11/11/21 17:38 Dose: 100 mg Documented by: Ergocalciferol (Ergocalciferol (Vitamin D2) 50,000 Unit Capsule) 50,000 unit PO Q7D [facility] Last Admin: 11/10/21 09:19 Dose: 50,000 unit Documented by: Famotidine (Famotidine 20 Mg Tablet) 20 mg PO BID [facility] Last Admin: 11/11/21 17:38 Dose: 20 mg Documented by: Heparin Sodium (Porcine) (Heparin 5,000 Unit/Ml Inj 1 Ml) 5,000 unit SUBCUT Q12H [facility] Last Admin: 11/11/21 23:16 Dose: 5,000 unit Documented by: Hydralazine HCl (Hydralazine 50 Mg Tablet) 100 mg PO Q8H [facility] Last Admin: 11/11/21 23:15 Dose: 100 mg Documented by: Hydroxyzine Pamoate (Hydroxyzine 25 Mg Capsule) 25 mg PO ONCE PRN PRN Reason: ANXIETY Last Admin: 11/11/21 21:06 Dose: 25 mg Documented by: Nicardipine/Sodium Chloride (Cardene) 20 mg in 200 mls @ 0 mls/hr IV .Q0M [facility]; Protocol Last Admin: 11/12/21 06:23 Dose: 5.5 mg/hr, 55 mls/hr Documented by: Piperacillin Sod/Tazobactam (Sod 3.375 gm/ Sodium Chloride) 50 mls @ 12.5 m ls/hr IV Q8H [facility]; Protocol Last Infusion: 11/12/21 05:53 Dose: Infused Documented by: Ferric Sodium Gluconate 125 mg (/ Sodium Chloride) 110 mls @ 110 mls/hr IV Q24H [facility] Stop: 11/17/21 10:29 Last Infusion: 11/11/21 20:16 Dose: Infused Documented by: Labetalol HCl (Labetalol 200 Mg Tablet) 300 mg PO Q12H [facility] Last Admin: 11/11/21 23:15 Dose: 300 mg Documented by: Minoxidil (Minoxidil 10 Mg Tablet) 5 mg PO DAILY [facility] Last Admin: 11/11/21 09:42 Dose: 5 mg Documented by: Multivitamins (X-Ybweajl-Hxjiped C Tablet) 1 each PO DAILY [facility] Last Admin: 11/11/21 09:25 Dose: 1 each Documented by: Ondansetron HCl (Ondansetron 2 Mg/Ml Sdv 2 Ml) 4 mg IVP Q8H PRN PRN Reason: vomiting, or N/V if npo Polyethylene Glycol (Polyethylene Glycol 3350 Pkt 17 Gm) 17 gm PO BID [facility] Last Admin: 11/11/21 17:35 Dose: 17 gm Documented by: Vitals/I&O/Wt Last Vital Signs Temp 97.6 F 11/12/21 04:00 Pulse 72 11/12/21 06:00 Resp 21 H 11/12/21 06:00 BP 145/78 11/12/21 06:00 Pulse Ox 90 11/12/21 06:00 11/11/21 11/12/21 11/12/21 22:59 06:59 14:59 Intake Total 1071.667 / 2310.000 890.0 / 3200.000 Output Total 1650 / 5250 2650 / 7900 Balance -578.333 / -2940.000 -1760.0 / -4700.000 Physical Exam Narrative: EXAM NARRATIVE: comfortbale in bed, NARD, afebrile vs noted -on cardene drip heent- nc/at, eomi, anicteric neck supple lungs improved air movement w/ dull bases b/l heart reg abd soft, nt, ND, + bs ext 2+ b/l edema neuro a,a, o x 3 Data : 11/12/21 02:40 11/12/21 02:40 Micro: Microbiology 11/09/21 15:29 Urine Culture - Final Urine,Clean Catch Escherichia coli A&P Assessment and plan (1) DENISA (acute kidney injury): 31 year old female 1. echo- Normal left ventricular cavity size. Markedly increased left ?ventricular wall thickness. Severe concentric left ventricular ?hypertrophy. Normal left ventricular systolic function. Left ?ventricular ejection fraction is estimated at 55 %. No regional ?wall motion abnormalities. ?--Normal right ventricular size and mildly decreased systolic ?function. ?-- Mild-moderate mitral valve regurgitation. . Moderate to large circumferential pericardial effusion. ?Right atrial diastolic collapse noted. Echocardiographic ?findings suggest a hemodynamically significant pericardial ?effusion.?When compared to previous study dated 05.06.21, percardial ?effusion has increased in size. -excellent uop- lasix on hold replace k and mag as needed 2. htn urgency- bp improving- wean down cardene drip. -check renal art duplex 3. stage 4 CKD + from htn.? q if from HEp c+, from drugs, htn, or CRS -pt w/ denisa- cr 2.8 on admission- from 2 mg/dl -cr peaked at 3.2 mg/dl. cr now stable at 3 mg /dl -monitor w/ diuresis and bp control -will discuss pericardial effusion w/ cradiologist - Dr. Henderson 4. hgb 9.0- iron sat- 10%, ferritin 239- iv iron -no MALGORZATA w/ htn 5. met acidosis from CKD 6. replace vit d- repeat pth in 4- 6 weeks =242 7. hep c per medicine 8. pna- monitor vanco level. keep trough under 19 normal tsh meds reviewed seen and examined w/ RN- telehealth visit Status: Acute Plan see above Attestations Medical Necessity Statement*: denisa, ckd stage 4, htn, pna, chf Time Spent in Patient Care: 16 - 35 minutes (>than 50% of time spent in counselling and/or direct pt care on unit) . Coding Level of Care Code Acute Psychologist Social for Guillermo Puente Diagnoses DENISA (acute kidney injury) N17.9
[2021-11-12 09:22] LABS: Albumin,Urine Random 63 %; Alpha-1-Globulins Urine Random 8 %; Alpha-2-Globulins Urine Random 8 %; Beta-Globulin,Urine Random 9 %; Gamma Globulin,Urine Random 12 %
--- NOTE | 2021-11-12 10:04 | P.PN_ITS ---
Subjective Subjective: Interval history: Debo reports she feels like she is breathing much easier. No significant discomfort. Occasional cough. Wondering when she might be going home. Medications: Reviewed: Yes Vitals/I&O/Wt Last Vital Signs Temp 97.6 F 11/12/21 04:00 Pulse 72 11/12/21 06:00 Resp 21 H 11/12/21 06:00 BP 145/78 11/12/21 06:00 Pulse Ox 90 11/12/21 06:00 11/11/21 11/12/21 11/12/21 22:59 06:59 14:59 Intake Total 1071.667 / 2310.000 890.0 / 3200.000 Output Total 1650 / 5250 2650 / 7900 Balance -578.333 / -2940.000 -1760.0 / -4700.000 Physical Exam Narrative: EXAM NARRATIVE: General exam no distress Neck is supple Cardiovascular regular rate and rhythm Lungs clear Abdomen is soft Extremities no cyanosis clubbing. No significant edema Data : 11/12/21 02:40 11/12/21 02:40 Micro: Microbiology 11/09/21 15:29 Urine Culture - Final Urine,Clean Catch Escherichia coli A&P Assessment and plan (1) Hypertensive emergency: Appreciate nephrology consultation. Currently on a nicardipine drip. Hopefully this can be tapered off today. Lasix drip has been discontinued Creatinine stable overnight Continue hydralazine, labetalol, minoxidil. Hydralazine increased by cardiology Echo demonstrated severe LVH, preserved EF 55%, mild to moderate mitral regurgitation, moderate to large circumferential pericardial effusion. Appreciate cardiology consultation. Likely will have repeat echocardiogram with in the next day or so. Status: Acute (2) CHF (congestive heart failure), NYHA class III: Diuresed excellently with Lasix drip. Transition to Lasix drip. Overall 8.4 L negative Status: Acute (3) Abdominal pain: Resolved Status: Acute (4) CKD (chronic kidney disease): Continue to follow closely Renal ultrasound was performed which demonstrated no obstruction. Status: Acute (5) Hepatitis C: Will need outpatient follow-up and evaluation, as well as treatment options. Status: Acute (6) Cardiomyopathy: Status: Acute (7) Methamphetamine abuse: Status: Chronic (8) LVH (left ventricular hypertrophy): Status: Acute (9) Pneumonia: IV antibiotics consisting of Zosyn MRSA PCR negative. Urine culture grew E. coli sensitive to Zosyn. Blood culture negative to date. Discontinue vancomycin. Status: Acute (10) Acute exacerbation of CHF (congestive heart failure): Status: Acute (11) Pericardial effusion: Follow clinically currently. No evidence of tamponade clinically. Suspect echocardiogram will be reevaluated soon. Status: Acute Plan Heparin for DVT prophylaxis Discontinue Gabriel Attestations Medical Necessity Statement*: Needs continued hospitalization, for treatment of hypertensive urgency. Still on nicardipine drip which hopefully can be discontinued today. Coding Level of Care Code Acute Mold Sander for [facility] Fwd Diagnoses Hypertensive emergency I16.1 CHF (congestive heart failure), NYHA class III I50.9 Abdominal pain R10.9 CKD (chronic kidney disease) N18.9 Hepatitis C B19.20 Cardiomyopathy I42.9 Methamphetamine abuse F15.10 LVH (left ventricular hypertrophy) I51.7 Pneumonia J18.9 Acute exacerbation of CHF (congestive heart failure) I50.9 Pericardial effusion I31.3
[2021-11-12] MEDS: nicardipine 20 MG/200 ML PREMIX 25 MG IV (10:11)
--- NOTE | 2021-11-12 11:29 | PC.SOCIAL ---
IMM update IMM updated with patient. Verbalized an understanding. Copy Pg 2 provided. Initialled, dated, timed, and placed in chart.
[2021-11-12] MEDS: labetalol 200 mg Tablet 300 MG PO ×2 (12:51→23:04)
[2021-11-12] MEDS: FUROsemide 40 mg Tablet PO (18:02)
--- NOTE | 2021-11-12 19:04 | PC.NURSE ---
Received report from POONAM Manuel. Patient resting in bed watching tv. Patient reports being upset with her boyfriend stating, he left here mad at her. Cardene drip stopped at this time. Gabriel catheter has been removed. Patient denies pain however is requesting something to help with sleep tonight. Informed Dr Person of patient request and received telephone order for hydroxizine 25mg PO onetime at bedtime. RBVO Patient denies other needs or complaints. No distress observed. Will continue to monitor.
[2021-11-12] MEDS: hyDROXYzine 25 mg Capsule PO (20:57)
[2021-11-12 21:28] LABS: HEP C RNA Viral Load Quant 2390000 IU/mL (NOT DETECTED); HEP C RNA Viral Load Quant 6.38 Log IU/mL (NOT DETECTED)
--- NOTE | 2021-11-12 23:11 | PC.NURSE ---
Patient NPO at this time. Instructed patient on not having anything to eat or drink the rest of the evening. Patient verbalized complete understanding. Removed all drinks and food from patient at this time. Patient denies other needs. No distress observed. Will continue to monitor.
[2021-11-13] MEDS: piperacillin-tazobactam 3.375 GM in sodium chloride 0.9% (plus) 50 ML IV ×2 (03:01→10:09)
[2021-11-13 03:27] VITALS: BP 137/97; PULSE 85; RESP 22
[2021-11-13 04:15] LABS: Basophils # 0.1 10^3/uL (0.0-0.1); Eosinophils # 0.5 10^3/uL (0.0-0.8); Eosinophils % 5.8 %; Hematocrit 30.2 % (37.0-47.0); Hemoglobin 9.3 g/dL (11.5-15.3); Lymphocytes # 1.5 10^3/uL (0.8-4.8); Lymphocytes % 18.8 %; Mean Corpuscular HGB Conc 30.8 g/dL (30.0-36.0); Mean Corpuscular Hemoglobin 28.9 pg (28.0-34.0); Mean Corpuscular Volume 93.8 fl (81-99); Mean Platelet Volume 10.4 fL (7.4-10.4); Monocytes # 0.9 10^3/uL (0.2-0.9); Monocytes % 10.7 %; Neutrophils # 4.98 10^3/uL (1.8-7.7); Neutrophils % 63.1 %; Nucleated Red Blood Cells % 0 %; Platelet Count 277 10^3/cmm (130-400); Red Blood Count 3.22 10^6/uL (4.1-5.3); Red Cell Distribution Width 13.4 % (12.1-15.1); White Blood Count 7.9 10^3/uL (4.0-10.0)
[2021-11-13 04:20] VITALS: PULSE 77
[2021-11-13 04:41] LABS: Alanine Aminotransferase 17 U/L (0-33); Alkaline Phosphatase 96 IU/L (35-105); Anion Gap 16.2 (5-19); Aspartate Amino Transferase 21 U/L (0-32); Blood Urea Nitrogen 28 mg/dL (6-20); Calcium 8.1 mg/dL (8.5-10.5); Carbon Dioxide 22 mmol/L (22-29); Chloride 104 mmol/L (98-107); Globulin 3.1 g/dL (1.3-4.6); Glomerular Filtration Rate 16.9 mL/min (90-130); Glucose 87 mg/dL (65-115); Magnesium 2.2 mg/dL (1.7-2.3); Osmolality Calculated 291 mOsm/kg (285-295); Potassium 4.2 mmol/L (3.5-5.1); Sodium 138 mmol/L (136-145); Total Bilirubin 0.2 mg/dL (0.15-1.2); Total Protein 6.1 g/dL (6.6-8.7)
[2021-11-13 04:58] LABS: Kappa Free Light Chains Urine 94.05 mg/L (<=32.90)
[2021-11-13 08:00] VITALS: BP 208/90; PULSE 85; RESP 19; TEMP 36.7; O2SAT 93
[2021-11-13] MEDS: hyDRALAzine 50 mg Tablet 100 MG PO (08:29)
[2021-11-13] MEDS: b-complex-vitamin c Tablet 1 EACH PO (08:29)
[2021-11-13] MEDS: famotidine 20 mg Tablet PO (08:30)
[2021-11-13] MEDS: FUROsemide 40 mg Tablet PO (08:30)
[2021-11-13] MEDS: docusate sodium 100 mg Capsule PO (08:30)
[2021-11-13] MEDS: polyethylene glycol 3350 Pkt 17 gm PO (08:30)
[2021-11-13] MEDS: minoxidil 10 mg Tablet 5 MG PO (08:30)
--- NOTE | 2021-11-13 09:13 | USCV_ITS ---
Debo Little Age: 31 Gender: F : 1990 Exam Date: 11/13/2021 06:33 Ordering Phys: Tom Lockwood MD Technologist: [place] [facility] [place]: [place]URE Aortic Velocity @ SMA (cm/s) 124 RIGHT KIDNEY LEFT KIDNEY Velocity (cm/s) Velocity (cm/s) Sys/Hu Sys/Hu Resistive Index Resistive Index 64.2 / 15.0 0.77 Proximal Renal Artery 117.9 / 15.3 0.87 46.1 / 6.5 0.86 Mid Renal Artery 86.1 / 13.0 0.85 62.0 / 12.3 0.80 Distal Renal Artery 94.3 / 9.4 0.90 57.0 / 6.5 0.89 Hilar 34.0 / 3.7 0.89 59.8 / 8.7 0.86 Upper Pole 26.1 / 26.1 0.00 27.4 / 7.2 0.74 Mid Pole 23.9 / 5.3 0.78 42.1 / 23.8 0.44 Lower Pole 31.4 / 1.6 0.95 0.50 Renal Aortic Ratio 0.95 Accleration Index (cm/sec2) 1907.0 Hilar 751.00 0 9500.0 Upper Pole 23.00 0 3733.0 Mid Pole 1936.0 0 0 1673.0 Lower Pole 346.00 0 94.0 Kidney Length (mm) 98.5 CONCLUSIONS Normal color flow Doppler, peak systolic velocities, Renal/Aortic peak systolic velocity ratio and resistive indices noted in bilateral main, segmental and interlobar renal arteries. Right Kidney measures 9.4cm Left Kidney measures 9.8cm Dilip Larios MD (Electronically Signed) Final Date: 13 November 2021 11:13 S
[2021-11-13 10:37] LABS: DNA AB (DS) CRITHIDIA,IFA NEGATIVE (NEGATIVE)
--- NOTE | 2021-11-13 10:47 | PC.NURSE ---
tele nephrology at bedside for assessment doctor mentioned she could get to go home however orders would have to come from Dr Bowman patient then called mother and became very agitated at mother and stated i just want to go the Fuck Home Get this out or I'm going to pull it out myself and walk the fuck home
--- NOTE | 2021-11-13 10:56 | P.DS_ITS ---
Discharge Providers Date of Admission: 11/09/21 18:02 Date of Discharge: November 13, 2021 Attending Provider at Admission: Camilo Mahmood MD Attending Provider at Discharge: Mahendra Bowman MD Primary Care Provider: Laurent Wolfe MD Diagnoses at Discharge Discharge Diagnosis (1) CHF (congestive heart failure), NYHA class III: Status: Acute (2) Hypertensive emergency: Status: Acute (3) Pericardial effusion: Status: Acute (4) CKD (chronic kidney disease): Status: Acute Reason for Visit Reason for Visit: HEART Hospital Course Hospital Course Debo presented with shortness of breath. She has significant fluid overload. She has a history of cardiomyopathy, mitral regurgitation, large pericardial effusion. She was placed on a Cardene drip, and multiple medicine adjustment started to occur. Labetalol, hydralazine, minoxidil were initiated. Nephrology consult was obtained. There was concern of pneumonia, and UTI and she was placed on IV antibiotics. Upon evaluation by nephrology she was placed on a Lasix drip. With Lasix drip she had excellent diuresis with improvement in her blood pressures. She ultimately diuresed 8.5 L. Cardene drip was eventually weaned off. Nephrology believes she was stable to be discharged on November 13 and this was arranged. We discussed her home medicine regimen and she will be taken off her minoxidil, and placed on nifedipine extended release 90 mg daily. Multiple other medicine changes occurred and are noted in her discharge summary. Pericardial effusion was rechecked while in the hospital, with no evidence clinically of tamponade. She will follow-up with cardiology regarding this in 2 weeks. She will also follow-up with nephrology within the next 7 days, and her primary care provider in 3 to 5 days with a BMP. She will also need referral for possible treatment of hepatitis C. This was put in discharge paperwork to her primary. The prescription printed for minoxidil was shredded. Renal artery duplex was done prior to discharge but will need to be followed up as an outpatient. Patient was adamant upon leaving prior to results being available. Physical Exam Narrative: EXAM NARRATIVE: General exam no distress Neck is supple Cardiovascular regular rate and rhythm Lungs clear Abdomen is soft Extremities no cyanosis clubbing or edema Discharge Data Studies Completed and Pending Completed Studies During Hospitalization Category Date Time Status CT chest abd pel wo con Stat Cat Scan 11/09/21 13:[address] head wo con* [id number] Routine Cat Scan 11/09/21 20:49 Completed XR chest 1V portable [id number] Stat Exams 11/09/21 17:40 Completed CV. echo lmt w color [id number]/ Routine Ultrasound 11/12/21 06:00 Completed CV. echo lmt w color [id number]/ Stat Ultrasound 11/09/21 15:11 Completed US renal BI* [id number] Routine Ultrasound 11/10/21 08:00 Completed Pending at discharge Category Date Time Status Anti-Neutrophil Cytoplasmic AB Routine Lab 11/09/21 23:06 Received Blood Culture Stat Lab 11/09/21 15:18 Results Fungitell Glucan Assay Routine Lab 11/09/21 23:06 Received Protein Electrophoresis, 24 HR Routine Lab 11/10/21 00:02 Received Sputum Culture and Gram Stain Stat Lab 11/09/21 20:41 Uncollected CV renal doppler [id number] Urgent Ultrasound 11/13/21 09:13 Taken Radiology Impressions Chest/Abdomen/Pelvis CT 11/09/21 13:01 IMPRESSION: 1. Quality of this examination is significantly limited by motion artifact, lack of contrast and body habitus. 2. Extensive soft tissue anasarca. 3. Marked cardiomegaly with a large pericardial effusion which has increased since the prior study. 4. Extensive opacification throughout the RIGHT lung may be due to pneumonia or edema. Lesser opacifications in the LEFT lung. 5. Prior cholecystectomy. Otherwise significantly limited evaluation of the abdominal pelvic structures. Chest X-Ray 11/09/21 17:40 IMPRESSION: 1. Suspect multifocal pneumonia process. 2. Pleural effusions. 3. Combination of cardiomegaly and pericardial effusion. Head CT 11/09/21 20:49 IMPRESSION: No acute intracranial abnormality. Renal Ultrasound 11/10/21 08:00 IMPRESSION: 1. Significant increased echogenicity within each kidney with no hydronephrosis. Acute interstitial nephritis, glomerulonephritis and chronic medical renal disease. 2. No renal atrophy. Laboratory Results WBC 7.9 10^3/uL (4.0-10.0) 11/13/21 03:28 RBC 3.22 10^6/uL (4.1-5.3) L 11/13/21 03:28 Hgb 9.3 g/dL (11.5-15.3) L 11/13/21 03:28 Hct 30.2 % (37.0-47.0) L 11/13/21 03: MCV 93.8 fl (81-99) 11/13/21 03: MCH 28.9 pg (28.0-34.0) 11/13/21 03: MCHC 30.8 g/dL (30.0-36.0) 11/13/21 03: RDW 13.4 % (12.1-15.1) 11/13/21 03: Plt Count 277 10^3/cmm (130-400) 11/13/21 03: MPV 10.4 fL (7.4-10.4) 11/13/21 03: Neut % (Auto) 63.1 % 11/13/21 03: Lymph % (Auto) 18.8 % 11/13/21 03: [place] % (Auto) 10.7 % 11/13/21 03: Eos % (Auto) 5.8 % 11/13/21 03: Baso % (Auto) 1.0 % 11/13/21 03: Neut # (Auto) 4.98 10^3/uL (1.8-7.7) 11/13/21 03: Lymph # (Auto) 1.5 10^3/uL (0.8-4.8) 11/13/21 03: [place] # (Auto) 0.9 10^3/uL (0.2-0.9) 11/13/21 03: Eos # (Auto) 0.5 10^3/uL (0.0-0.8) 11/13/21 03: Baso # (Auto) 0.1 10^3/uL (0.0-0.1) 11/13/21 03: Nucleated RBC % (auto) 0 % 11/13/21 03: Nucleated RBCs # 0.0 /100WBC 11/13/21 03: ESR 37 mm/hr (0-15) H 11/10/21 03:23 PT 13.20 SECONDS (12.1-14.9) 11/09/21 13:30 INR 0.97 (0.8-1.2) 11/09/21 13:30 Sodium 138 mmol/L (136-145) 01/28/22 03:28 Potassium 4.2 mmol/L (3.5-5.1) 11/13/21 03:28 Chloride 104 mmol/L (98-107) 11/13/21 03:28 Carbon Dioxide 22 mmol/L (22-29) 11/13/21 03:28 Anion Gap 16.2 (5-19) 11/13/21 03:28 BUN 28 mg/dL (6-20) H 11/13/21 03:28 Creatinine 3.2 mg/dL (0.5-0.9) H 11/13/21 03:28 GFR Calculation 16.9 mL/min (90-130) L 11/13/21 03:28 Glucose 87 mg/dL (65-115) 11/13/21 03:28 Calculated Osmolality 291 mOsm/kg (285-295) 11/13/21 03:28 Lactate 0.6 mmol/L (0.5-2.2) 11/09/21 13:30 Uric Acid 6.2 mg/dL (2.4-5.7) H 11/09/21 20:49 Calcium 8.1 mg/dL (8.5-10.5) L 11/13/21 03:28 Phosphorus 3.5 mg/dL (2.5-4.5) 11/12/21 02:40 Magnesium 2.2 mg/dL (1.7-2.3) 11/13/21 03:28 Iron 19 ug/dL (37-145) L 11/10/21 03:23 TIBC 182 mcg/dl 11/10/21 03:23 % Saturation 10.4 % (20-50) L 11/10/21 03:23 Unsat Iron Binding 163 ug/dL (112-347) 11/10/21 03:23 Ferritin 239 ng/mL (15-150) H 11/10/21 03:23 Total Bilirubin 0.2 mg/dL (0.15-1.2) 11/13/21 03:28 AST 21 U/L (0-32) 11/13/21 03:28 ALT 17 U/L (0-33) 11/13/21 03:28 Alkaline Phosphatase 96 IU/L (35-105) 11/13/21 03:28 Lactate Dehydrogenase 294 U/L (135-214) H 11/10/21 03:23 Troponin T Baseline 77 ng/L (0-10) H 11/09/21 20:49 Troponin T 120 Minute 73.23 ng/L (0-10) H 11/09/21 22:47 Delta Troponin T -3.77 ABS# (0-10) L 11/09/21 22:47 Troponin T Hi Sens 6Hr 74.38 ng/L (0-10) H 11/10/21 03:23 Troponin T Hi Sens 6Hr Delta -2.62 ng/L (0-12) L 11/10/21 03:23 C-Reactive Protein 53.3 mg/L (0.0-4.9) H 11/10/21 03:23 NT-Pro-B Natriuret Pep > 79376 pg/mL (0-125) H 11/10/21 03:23 Total Protein 6.1 g/dL (6.6-8.7) L 11/13/21 03:28 Albumin 3.0 g/dL (3.5-5.2) L 11/13/21 03:28 Globulin 3.1 g/dL (1.3-4.6) 11/13/21 03:28 Yestc-6-Xlvcuiwaa 0.5 g/dL (0.2-0.3) H 11/10/21 03:23 Gwrfv-2-Vsiblzqzt 0.8 g/dL (0.5-0.9) 11/10/21 03:23 [place]-0-[place] 0.4 g/dL (0.4-0.6) 11/10/21 03:23 Abac-5-Umnpdyde 0.3 g/dL (0.2-0.5) 11/10/21 03:23 Gamma Globulins 1.2 g/dL (0.8-1.7) 11/10/21 03:23 Abnorm Protein Band 1 Not Reportable 11/10/21 03:23 Lipase 20 U/L (13-60) 11/09/21 13:30 25-OH Vitamin D Total 22 ng/mL (30-100) L 11/10/21 03:23 Procalcitonin 0.11 ng/mL (0-0.5) 11/10/21 03:23 TSH 1.36 uIU/mL (0.27-4.20) 11/10/21 03:23 Ser , Semi-Qnt 0.50 mIU/mL 11/10/21 03:23 PTH Intact 242.7 pg/mL (15-65) H 11/09/21 23:39 Calcium (PTH Intact) 7.6 mg/dL (8.5-10.5) L 11/09/21 23:39 Urine Color Straw (Yellow) 11/11/21 23:20 Urine Appearance Clear (CLEAR) 11/11/21 23:20 Urine pH 7 (5-7) 11/11/21 23:20 Ur Specific [place] 1.005 (1.005-1.030) 11/11/21 23:20 Urine Protein 1+ (Negative) H 11/11/21 23:20 Urine Glucose (UA) Norm (Normal) 11/11/21 23:20 Urine Ketones Negative (Negative) 11/11/21 23:20 Urine Blood Neg (Negative) 11/11/21 23:20 Urine Nitrate Negative (Negative) 11/11/21 23:20 Urine Bilirubin Neg (Negative) 11/11/21 23:20 Urine Urobilinogen Norm mg/dL (Negative) 11/11/21 23:20 Ur Leukocyte Esterase Negative (Negative) 11/11/21 23:20 Urine RBC None /hpf (0-2) 11/11/21 23:20 Urine WBC None /hpf (0-5) 11/11/21 23:20 Ur Squamous Epith Cells None /hpf (0-5) 11/11/21 23:20 Amorphous Sediment Not Reportable 11/11/21 23:20 Urine Bacteria Trace /hpf (NONE) 11/11/21 23:20 Ur Random Creatinine 30 mg/dL (20-275) 11/10/21 00:00 Ur Random Albumin 63 % 11/10/21 00:00 U Random Total Protein 178 mg/dL (5-24) H 11/10/21 00:00 Protein/Creatinin Ratio 5933 mg/g creat (21-161) H 11/10/21 00:00 Protein/Creat Ratio 24h 5.933 (0.021-0.161) H 11/10/21 00:00 U Random c-5-Zfizlsey % 8 % 11/10/21 00:00 U Random m-0-Zawzhdmf % 8 % 11/10/21 00:00 U Random Beta Globulin 9 % 11/10/21 00:00 U Random Gamma Glob 12 % 11/10/21 00:00 U Free [place] Light Ch 94.05 mg/L (<=32.90) H 11/09/21 23:59 U Abnormal Prot Band 1 Not Reportable 11/10/21 00:00 U Abnormal Prot Band 2 Not Reportable 11/10/21 03:23 U Abnormal Prot Band 3 Not Reportable 11/10/21 03:23 Urine PEP Interpret See note 11/10/21 00:00 Urine Opiates Screen Negative ng/mL (Negative) 11/09/21 15:29 Ur Barbiturates Screen Negative ng/mL (Negative) 11/09/21 15:29 Ur Phencyclidine Scrn Negative ng/mL (Negative) 11/09/21 15:29 Ur Amphetamines Screen Negative ng/mL (Negative) 11/09/21 15:29 U Benzodiazepines Scrn Negative ng/mL (Negative) 11/09/21 15:29 Urine Cocaine Screen Negative ng/mL (Negative) 11/09/21 15:29 U Marijuana (THC) Screen Negative ng/mL (Negative) 11/09/21 15:29 Pro Electrophoresis Int See note 11/10/21 03:23 LAURY IFA Animal Tis Res Negative (NEGATIVE) 11/10/21 03:23 [place]-1 Antibody <1.0 neg AI (<1.0 NEG) 11/10/21 03:23 SS-A Antibody <1.0 neg AI (<1.0 NEG) 11/10/21 03:23 SS-B Antibody <1.0 neg AI (<1.0 NEG) 11/10/21 03:23 Sm (Gentile) Antibody <1.0 neg AI (<1.0 NEG) 11/10/21 03:23 LOGISTICS LEAD Antibody <1.0 neg AI (<1.0 NEG) 11/10/21 03:23 Scl-70 Antibody <1.0 neg AI (<1.0 NEG) 11/10/21 03:23 Anti-ds DNA IgG ([place]) Negative (NEGATIVE) 11/10/21 03:23 Centromere B Antibody <1.0 neg AI (<1.0 NEG) 11/10/21 03:23 Thyroid Peroxidase Ab 2 IU/mL (<9) 11/10/21 03:23 Complement C3c 134 mg/dL (83-193) 11/10/21 03:23 Complement C4c 18 mg/dL (15-57) 11/10/21 03:23 CH50 Classical Pathway 25 U/mL (31-60) L 11/10/21 03:23 Free [place] Light Chains 148.7 mg/L (3.3-19.4) H 11/10/21 03:23 Free Lambda Light Chain 120.8 mg/L (5.7-26.3) H 11/10/21 03:23 Free [place]/Lambda Ratio 1.23 (0.26-1.65) 11/10/21 03:23 RPR Nonreactive (Nonreactive) 11/10/21 03:23 Coronavirus 229E (PCR) Not detected (NOT DETECT) 11/09/21 Unknown Hepatitis A IgM Ab Non-reactive (Nonreactive) 11/09/21 23:39 Hep Bs Antigen Non-reactive (Nonreactive) 11/09/21 23:39 Hep B Core IgM Ab Non-reactive (Nonreactive) 11/09/21 23:39 Hepatitis C Antibody Cancelled 11/09/21 23:39 Hepatitis C Antibody Reactive (Nonreactive) H 11/09/21 23:39 HCV RNA Qnt PCR Amp&Det Cancelled 11/10/21 02:10 HCV RNA (PCR) IUs/ml Cancelled 11/10/21 02:10 HCV RNA (PCR) IU log10 Cancelled 11/10/21 02:10 HIV 1&2 Ab & HIV 1 Ag Non-reactive (Non-Reactiv) 11/10/21 03:23 HIV 1&2 Antibody Non-reactive (Non-Reactiv) 11/10/21 03:23 Influenza Type A Ag Negative (Negative) 11/10/21 00:05 Influenza Type B Ag Negative (Negative) 11/10/21 00:05 SARS-CoV-2 (PCR) Not detected (NOT DETECT) 11/09/21 Unknown Vitals Last Vital Signs Temp 98.0 F 11/13/21 08:00 Pulse 85 11/13/21 08:00 Resp 19 H 11/13/21 08:00 BP 208/90 11/13/21 08:00 Pulse Ox 93 11/13/21 08:00 Discharge Plan Discharge Patient Disposition: Home Condition: Stable Prescriptions: New furosemide 40 mg Tablet 40 mg PO BID@08,16 Qty: 60 0RF labetalol 200 mg Tablet 300 mg PO Q12H Qty: 90 0RF hydralazine 50 mg Tablet 100 mg PO Q8H Qty: 180 0RF cefdinir 300 mg capsule 300 mg PO DAILY 7 Days Qty: 7 0RF nifedipine 90 mg tablet extended release 24hr 90 mg PO DAILY Qty: 30 0RF Continued labetalol 300 mg tablet 300 mg PO BID Qty: 60 2RF hydralazine 100 mg tablet 100 mg PO TID 0RF docusate sodium 100 mg capsule 100 mg PO BID 0RF minoxidil 10 mg tablet 10 mg PO BID Qty: 60 0RF dicyclomine 10 mg capsule 10 mg PO TID PRN (Reason: Cramps) 0RF Discontinued amlodipine 10 mg tablet 10 mg PO BEDTIME 0RF furosemide 20 mg tablet 20 mg PO DAILY PRN (Reason: Edema) 0RF Discharge Orders: Discharge Order (Routine); Ordered 11/13/21 Ordered By: Mahendra Bowman Referrals: Laurent Wolfe MD [Primary Care Provider] - 11/18/21 10:00 am (BMP on follow-up Noted patient has hepatitis C positive. Consideration for referral for treatment.) Lizzy Henderson MD [Physician] - 11/27/21 10:00 am Discharge Activity: Increase activity as tolerated Patient Instructions: Labetalol (By mouth) (Normodyne, Trandate), Furosemide (By mouth) (Lasix), Hydralazine (By mouth) (Apresoline), Cefdinir (By mouth) (Omnicef), Opioid Safety Activity Restrictions/Additional Instructions: Renal diet Take all medicine as prescribed Keep follow-up Avoid any drug use. No anti-inflam matories. These will harm your kidney function. Renal diet Follow-up with nephrology in 1 week Stop minoxidil completely. Discharge Attestations Time Spent in Discharge Care*: greater than 30 min Status at Discharge: Cognitive status at discharge: cognitively intact , Behavioral status at discharge: cooperative , Quality Metrics Clinical Quality Measures [ No reported AMI, CVA or VTE this stay] Coding Level of Care Code Acute Chg [facility] note Diagnoses CHF (congestive heart failure), NYHA class III I50.9 Hypertensive emergency I16.1 Pericardial effusion I31.3 CKD (chronic kidney disease) N18.9
--- NOTE | 2021-11-13 10:57 | PM.PN ---
Subjective Subjective: Interval history: Debo feels well today and is very keen to go home. So much so that she has already called for her ride to come to pick her up. Of the nicardipine infusion since yesterday evening. Blood pressure very fluctuant, up to 6 systolic 200s but coming down to 130. Vitals/I&O/Wt Last Vital Signs Temp 98.0 F 11/13/21 08:00 Pulse 85 11/13/21 08:00 Resp 19 H 11/13/21 08:00 BP 208/90 11/13/21 08:00 Pulse Ox 93 11/13/21 08:00 11/12/21 11/13/21 11/13/21 22:59 06:59 14:59 Intake Total 340 / 1127.917 410 / 410 Balance 340 / -472.083 410 / 410 Physical Exam Narrative: EXAM NARRATIVE: Constitutional: Awake, comfortable HEENT: Wet mucosa, no jvp, non icteric Lungs: Bilaterally clear without discernible wheeze, rales in all lung zones CVS: S1 S2, no murmurs Abdo: Soft, BS ok Ext 4: Minimal edema, peripheral perfusion with no cyanosis Neurological: Grossly non-focal Data : 11/13/21 03:28 11/13/21 03:28 A&P Assessment and plan (1) Acute kidney failure: Status: Acute Plan 1. Acute kidney injury Renal function remains relatively stable at this time, likely nowadays stable, chronic kidney disease level. We will need to follow with Dr. Cintron in the local kidney clinic following discharge. General guidance given about chronic kidney disease, avoidance of potentially nephrotoxic agents etc. 2. Hypertension To be discharged on combination antihypertensives, of note minoxidil side effects do include pericardial effusion, and would switch this out to Nifedipine ER. Okay for discharge, would strongly recommend follow-up with cardiology and nephrology following discharge. Cristino Crespo MD Nephrology [phone] Patient seen and examined via telemedicine, with the assistance of the bedside RN > 25 min spent in evaluation and mgmt of patient Attestations Medical Necessity Statement*: mgmt of DENISA Coding Level of Care Code Acute [employer] Sales Professional for g Fwd Diagnoses Acute kidney failure N17.9
[2021-11-13] MEDS: labetalol 200 mg Tablet 300 MG PO (11:13)
[2021-11-13] MEDS: NIFEdipine ER (24 hr) 30 mg Tablet 90 MG PO (11:15)
--- NOTE | 2021-11-13 11:24 | PC.NURSE ---
Discharge Note Patient discharged to Home via private vehicle accompanied by Family. Discharge instructions reviewed with patient and/or manufacturer's service representative. Mobile pharmacy medications and/or prescriptions provided. Belongings/home medications returned.
[2021-11-13 12:12] LABS: CREATININE, 24 HOUR URINE 0.35 g/24 h (0.50-2.15); PROTEIN, TOTAL, 24 HR UR 1352 mg/24 h (<150); Protein/Creatinine Ratio 3.852 (< OR = 0.114); Protein/Creatinine Ratio 3852 mg/g creat (< OR = 114)
[2021-11-13 14:22] LABS: ANCA Screen NEGATIVE (NEGATIVE)
[2021-11-16 09:58] LABS: ALBUMIN 61 %; ALPHA-1-GLOBULINS 9 %; ALPHA-2-GLOBULINS 7 %; BETA GLOBULINS 11 %; GAMMA GLOBULINS 13 %
[2021-11-16 18:37] LABS: Fungitell 1-3-B Glucan Assay 35 pg/mL; Interpretation NEGATIVE
== END 2021-11-13 11:23 | disposition home or self-care (01) | DRG 291 ==
LOC: ER 18:00 → ER IP 18:43 → ICU 20:26 → ER IP 11-10 00:26 → CSU 11-10 17:06
PROVIDERS: Family Medicine; Internal Medicine Nephrology; Nurse Practitioner Family; Admitting Provider Student in an Organized Health Care Education/Training Program; Emergency Provider Family Medicine; PCP Family Medicine; Visit Provider Internal Medicine
DX: I13.0 Hypertensive heart and chronic kidney disease with heart failure and stage 1 through stage 4 chronic kidney disease, or unspecified chronic kidney disease (principal); I50.33 Acute on chronic diastolic (congestive) heart failure; J18.9 Pneumonia, unspecified organism; I16.1 Hypertensive emergency; N18.4 Chronic kidney disease, stage 4 (severe); N17.9 Acute kidney failure, unspecified; K55.9 Vascular disorder of intestine, unspecified; E87.2 Acidosis; E87.6 Hypokalemia; D63.1 Anemia in chronic kidney disease; B19.20 Unspecified viral hepatitis C without hepatic coma; I42.9 Cardiomyopathy, unspecified; F15.10 Other stimulant abuse, uncomplicated; K59.00 Constipation, unspecified; I34.0 Nonrheumatic mitral (valve) insufficiency; R50.9 Fever, unspecified; Z20.822 Contact with and (suspected) exposure to COVID-19
CPT/HCPCS: 36415; 70450; 71045; 71250; 74176; 76770; 80053; 80074; 80306; 81001; 82306; 82310; 82570; 82728; 83516; 83540; 83550; 83605; 83615; 83690; 83735; 83880; 83883; 83970; 84100; 84145; 84155; 84156; 84165; 84166; 84443; 84484; 84550; 84702; 85025; 85610; 85651; 86140; 86160; 86162; 86235; 86255; 86335; 86376; 86403; 86592; 86803; 87040; 87077; 87086; 87186; 87449; 87491; 87522; 87591; 87635; 87641; 87804; 87806; 93005; 93308; 93325; 93975; 94664; 96365; 96367; 96372; 96375; 96376; 97161; 97165; 97530; 99285; J1644; J1940; J2543; J2916; J3370; J3480; J7050; Q3014

== ENCOUNTER → 2021-12-21 08:52 | Outpatient (BNVA) | payer MEDICARE, MEDICAID, SELFPAY | PROVIDERS: PCP Family Medicine; Visit Provider Nurse Practitioner Family | DX: I11.0 Hypertensive heart disease with heart failure (principal); I50.9 Heart failure, unspecified; I42.9 Cardiomyopathy, unspecified; F17.210 Nicotine dependence, cigarettes, uncomplicated | CPT/HCPCS: 99214 ==

== ENCOUNTER → 2021-12-30 15:25 | Outpatient (BNVA) | payer MEDICARE, MEDICAID, SELFPAY | PROVIDERS: PCP Family Medicine; Visit Provider Internal Medicine | DX: N17.9 Acute kidney failure, unspecified; B18.2 Chronic viral hepatitis C; N12 Tubulo-interstitial nephritis, not specified as acute or chronic | CPT/HCPCS: 81003; 82105; 87077; 87086; 87184 ==

== ENCOUNTER 2022-01-09 08:15 | Emergency (ER) | payer MEDICARE, MEDICAID, SELFPAY ==
[2022-01-09 08:27] VITALS: BP 149/77; PULSE 64; RESP 17; TEMP 36.4; O2SAT 100; BMI 30.2
--- NOTE | 2022-01-09 08:46 | CTR_ITS ---
PROCEDURE INFORMATION: Exam: CT Head Without Contrast Exam date and time: 01/09/2022 9:15 AM Age: 31 years old Clinical indication: Pain; Headache not specified; Additional info: Complete bilateral vision loss TECHNIQUE: Imaging protocol: Computed tomography of the head without contrast. Total images: 188 Radiation optimization: All CT scans at this facility use at least one of these dose optimization techniques: automated exposure control; mA and/or kV adjustment per patient size (includes targeted exams where dose is matched to clinical indication); or iterative reconstruction. COMPARISON: CT head wo con* [id number] 11/09/2021 9:03 PM RADIATION DOSE METRICS: Total DLP (mGy-cm): 775.48 FINDINGS: Brain: Normal. No hemorrhage. Unremarkable white matter. No mass effect. Cerebral ventricles: No ventriculomegaly. Paranasal sinuses: Visualized sinuses are unremarkable. No fluid levels. Mastoid air cells: Visualized mastoid air cells are well aerated. Bones/joints: Unremarkable. No acute fracture. Soft tissues: Unremarkable. CT/CT head wo con* [id number] IMPRESSION: No acute intracranial abnormality.
--- NOTE | 2022-01-09 08:47 | W.ED.EYEPROB ---
Documented by User: FITZ Sinha 01/09/22 13:11 HPI - Eye Problem General: Chief complaint: Neuro Symptoms/Deficit Stated complaint: flu symptoms vision gone Time Seen by Provider: 01/09/22 08:20 Source: patient and family History of Present Illness: Patient is a 31-year-old female presents to ED today along with a family member for concern of bilateral complete vision loss. Patient tells me around 4 AM this morning she noticed she awoke that she had very blurry vision and could only see the outline of objects. She states when she got up this morning around 7 she could not see anything . History is somewhat hard to obtain. At first, when asked, patient tells me she has absolutely no perception to light then tells me she can see the outline of the door and the family member in the room. Patient has no eye pain/painful EOMs, discharge, or recent injury. Patient has an extensive medical history despite only being 31 years old. She is a known IV drug user. Family member states she has been off of her HTN meds-BP upon arrival 140s/70s which patient states is really good for her . She was recently diagnosed with gastroenteritis approximately 6 days ago but states symptoms from that have resolved. States a few days ago she did a line (clarified with patient and this was methamphetamine) in order to help her feel better so she could take care of her three kids. chief complaint: vision change Onset (ago): hour(s) Onset description: gradual Duration: constant Location: both eyes Place: home Mechanism: none Associated symptoms: Denies fever(s), headache(s), nausea, neck pain or vomiting Treatments Prior to Arrival: none Review of Systems Const: Denies: fever(s), chills, body aches, fatigue or malaise Eyes: Reports: change in vision (reporting bilateral complete vision loss); Denies: photophobia, eye discomfort, eye discharge, eye redness, yellow eyes, dry eyes or increased production of tears Card: Denies: chest pain or palpitations Resp: Denies: dyspnea GI: Denies: abdominal pain, nausea, vomiting or diarrhea Musc: Denies: neck pain or back pain Skin/Breast: Denies: rash Neuro: Denies: headache(s), numbness in extremities, weakness in extremities, sensory changes, dizziness, confusion, Slurred speech present or seizure-like activity [facility] ED PFS: Medical History (Updated 01/09/22 @ 17:26 by Camilo Singh MD) Acute kidney failure Cardiomyopathy EF- 48% with mod LVH, grade 1 diastolic dysfunction CHF (congestive heart failure), NYHA class III CKD (chronic kidney disease) Hypertension Ischemic bowel disease LVH (left ventricular hypertrophy) Methamphetamine abuse Pericardial effusion Resistant hypertension Substance abuse Surgical History S/P cholecystectomy Status post biopsy of kidney Status post insertion of hemodialysis catheter Family History Other CAD (coronary artery disease) Hypertension Social History Smoking and tobacco status: current every day smoker cigarettes Packs smoked per day: 0.5 Alcohol intake: never Other details last substance use: Reports of prior methamphetamine abuse per prior documentation. Juan zhang Household members: family and other Details: Lives with mother Housing: House Marital status: Single Current occupational status: unemployed Current gender identity: Female Female Reproductive History: Date of last menstrual period: 09/05/20 Physical Exam Const: COMMON NORMALS: average body habitus, patient oriented x3, alert and well nourished GENERAL APPEARANCE: cooperative and appears older than stated age ORIENTATION/CONSCIOUSNESS: Yes awake, Yes oriented to person, Yes oriented to place and Yes oriented to time HENMT: COMMON NORMALS: normocephalic, atraumatic, hearing grossly normal bilaterally, external ears normal, EAC's normal, TM's normal bilaterally, Normal nasal mucous membranes and turbinates present and moist oral mucous membranes HEAD & SCALP: normal to inspection, normocephalic and atraumatic FACE & SINUS: normal facial exam NOSE: Normal nasal mucous membranes and turbinates present EXTERNAL EAR: Yes external ears normal EXTERNAL AUDITORY CANAL: EAC's normal TYMPANIC MEMBRANE: TM's normal bilaterally Eye: COMMON NORMALS: EOMs intact bilaterally and conjunctivae normal VISUAL ACUITY: Yes complete vision loss VISUAL BURROUGHS: Yes central vision loss PERIORBITAL: periorbital findings normal EYELID: eyelids normal CONJUNCTIVA: Yes conjunctivae normal SCLERA: sclerae normal CORNEA: Yes corneas normal PUPIL: Yes Pupils not reactive Neck/C-Spine: COMMON NORMALS: full ROM, no lymphadenopathy and no meningeal signs Resp: COMMON NORMALS: normal respiratory effort and clear to auscultation bilaterally AUSCULTATION: clear to auscultation bilaterally Cardio: COMMON NORMALS: regular rate and regular rhythm RATE: regular rate RHYTHM: regular rhythm Neuro: BILL COMA SCALE: document GCS findings Bill coma scale eye opening: Spontaneous [place] coma scale verbal response: Orientated Bill coma scale motor response: Obey commands Bill coma scale total score: 15 COMMON NORMALS: patient oriented x3, moves all extremities, no focal motor deficits and no sensory deficits noted SENSORIUM/ORIENTATION: Yes alert, Yes oriented to person, Yes oriented to place and Yes oriented to time MENINGEAL SIGNS: Yes no meningeal signs SPEECH: speech normal Course ED course: DFS contacted in regards to admitted drug use with three children at home. Vital Signs: Vital signs: Vital Signs Temperature 97.6 F 01/09/22 17:17 Pulse Rate 75 01/09/22 17:19 Respiratory Rate 16 01/09/22 17:19 Blood Pressure 157/89 01/09/22 17:19 Pulse Oximetry 98 01/09/22 17:19 MDM - Eye Problem Medical Decision Making Patient is a 31-year-old female who presents to ED today with a complaint of binocular vision loss starting today around 7 AM. DDx for binocular vision loss could include migraine, seizure, vertebrobasilar ischemia, conversion disorder. Patient does not complain of a headache. She has no other neurologic complaints such as vertigo, aphasia, hemiparesis, slurred speech to suggest intracranial ischemia. Patient was noted to have acute renal injury in the setting of her CKD. US renal similar to previous exams. She has a critically low potassium at 2.5 with a normal magnesium. Sodium moderately low at 127. She does have elevations to her LFTs with a normal T bili. Patient does have diagnosed hep C. She does not complain of abdominal pain at this time. Patient has a history of CHF. CXR stable. BNP is over 70,000 which is consistent with previous lab values. She just had an echo on her last hospitalization. Dr. Cassidy will also evaluate patient speak to hospitalist for admission. Lab Data : 01/09/22 08:55 01/09/22 16:[address] 01/09/22 08:46 IMPRESSION: No acute intracranial abnormality. Chest X-Ray 01/09/22 10:07 IMPRESSION: 1. Heart is enlarged but stable when compared to the prior exam. 2. Trace atelectasis or scar noted in the left lung base. Renal Ultrasound 01/09/22 10:09 IMPRESSION: 1. Increased echogenicity of the kidneys bilaterally with the kidneys otherwise appearing unremarkable. 2. Unremarkable urinary bladder ADDENDUM: 01/09/22 1112 Findings appear similar to prior exam. Head MRI 01/09/22 12:54 IMPRESSION: 1. Supratentorial and infratentorial abnormal brain signal. This is likely multifactorial in etiology and please see discussion. 2. No restricted diffusion to suggest actual brain infarct. No acute or chronic hemorrhage is identified. Critical results: THIS REPORT CONTAINS FINDINGS THAT MAY BE CRITICAL / URGENT (stroke protocol) TO PATIENT CARE. The findings were verbally communicated via telephone conference with CAMILO SINGH at 4:32 PM CDT on 01/09/2022. The findings were acknowledged and understood. Laboratory Results WBC 13.2 10^3/uL (4.0-10.0) H 01/09/22 08:55 RBC 3.44 10^6/uL (4.1-5.3) L 01/09/22 08:55 Hgb 10.3 g/dL (11.5-15.3) L 01/09/22 08:55 Hct 30.8 % (37.0-47.0) L 01/09/22 08:55 MCV 89.5 fl (81-99) 01/09/22 08:55 MCH 29.9 pg (28.0-34.0) 01/09/22 08:55 MCHC 33.4 g/dL (30.0-36.0) 01/09/22 08:55 RDW 18.2 % (12.1-15.1) H 01/09/22 08:55 Plt Count 214 10^3/cmm (130-400) 01/09/22 08:55 MPV 12.0 fL (7.4-10.4) H 01/09/22 08:55 Neut % (Auto) 84.1 % 01/09/22 08:55 Lymph % (Auto) 8.0 % 01/09/22 08:55 [place] % (Auto) 6.1 % 01/09/22 08:55 Eos % (Auto) 0.6 % 01/09/22 08:55 Baso % (Auto) 0.2 % 01/09/22 08:55 Neut # (Auto) 11.11 10^3/uL (1.8-7.7) H 01/09/22 08:55 Lymph # (Auto) 1.1 10^3/uL (0.8-4.8) 01/09/22 08:55 [place] # (Auto) 0.8 10^3/uL (0.2-0.9) 01/09/22 08:55 Eos # (Auto) 0.1 10^3/uL (0.0-0.8) 01/09/22 08:55 Baso # (Auto) 0.0 10^3/uL (0.0-0.1) 01/09/22 08:55 Nucleated RBC % (auto) 0.2 % 01/09/22 08:55 Nucleated RBCs # 0.0 /100WBC 01/09/22 08:55 PT 14.30 SECONDS (12.1-14.9) 01/09/22 10:20 INR 1.08 (0.8-1.2) 01/09/22 10:20 Sodium 130 mmol/L (136-145) L 01/09/22 16:34 Potassium 2.6 mmol/L (3.5-5.1) L* 01/09/22 16:34 Chloride 91 mmol/L (98-107) L 01/09/22 16:34 Carbon Dioxide 25 mmol/L (22-29) 01/09/22 16:34 Anion Gap 16.6 (5-19) 01/09/22 16:34 BUN 69 mg/dL (6-20) H 01/09/22 16:34 Creatinine 4.0 mg/dL (0.5-0.9) H 01/09/22 16:34 GFR Calculation 13.1 mL/min (90-130) L 01/09/22 16:34 Glucose 122 mg/dL (65-115) H 01/09/22 16:34 Calculated Osmolality 291 mOsm/kg (285-295) 01/09/22 16:34 Calcium 8.2 mg/dL (8.5-10.5) L 01/09/22 16:34 Magnesium 2.3 mg/dL (1.7-2.3) 01/09/22 08:55 Iron 42 ug/dL (37-145) 01/09/22 08:55 TIBC 256 mcg/dl 01/09/22 08:55 % Saturation 16.4 % (20-50) L 01/09/22 08:55 Unsat Iron Binding 214 ug/dL (112-347) 01/09/22 08:55 Total Bilirubin 1.0 mg/dL (0.15-1.2) 01/09/22 08:55 AST 242 U/L (0-32) H 01/09/22 08:55 ALT 621 U/L (0-33) H 01/09/22 08:55 Alkaline Phosphatase 141 IU/L (35-105) H 01/09/22 08:55 Creatine Kinase 173 U/L (26-192) 01/09/22 08:55 C-Reactive Protein 21.5 mg/L (0.0-4.9) H 01/09/22 08:55 NT-Pro-B Natriuret Pep > 80476 pg/mL (0-125) H 01/09/22 08:55 Total Protein 6.8 g/dL (6.6-8.7) 01/09/22 08:55 Albumin 3.5 g/dL (3.5-5.2) 01/09/22 08:55 Globulin 3.3 g/dL (1.3-4.6) 01/09/22 08:55 Lipase 31 U/L (13-60) 01/09/22 08:55 Procalcitonin 0.38 ng/mL (0-0.5) 01/09/22 08:55 Urine Color Yellow (Yellow) 01/09/22 11:40 Urine Appearance Cloudy (CLEAR) 01/09/22 11:40 Urine pH 5 (5-7) 01/09/22 11:40 Ur Specific [place] 1.015 (1.005-1.030) 01/09/22 11:40 Urine Protein 3+ (Negative) H 01/09/22 11:40 Urine Glucose (UA) Norm (Normal) 01/09/22 11:40 Urine Ketones Negative (Negative) 01/09/22 11:40 Urine Blood Neg (Negative) 01/09/22 11:40 Urine Nitrate Negative (Negative) 01/09/22 11:40 Urine Bilirubin Neg (Negative) 01/09/22 11:40 Urine Urobilinogen Norm mg/dL (Negative) 01/09/22 11:40 Ur Leukocyte Esterase Trace (Negative) H 01/09/22 11:40 Urine RBC None /hpf (0-2) 01/09/22 11:40 Urine WBC 15-25 /hpf (0-5) H 01/09/22 11:40 Ur Squamous Epith Cells Rare /hpf (0-5) 01/09/22 11:40 Amorphous Sediment Not Reportable 01/09/22 11:40 Urine Bacteria 4+ /hpf (NONE) H 01/09/22 11:40 Ur Random Sodium 20 mmol/L 01/09/22 11:40 Ur Random Potassium 28 mmol/L 01/09/22 11:40 Ur Random Chloride 19 mmol/L 01/09/22 11:40 Urine Opiates Screen Negative ng/mL (Negative) 01/09/22 11:40 Ur Barbiturates Screen Negative ng/mL (Negative) 01/09/22 11:40 Ur Phencyclidine Scrn Negative ng/mL (Negative) 01/09/22 11:40 Ur Amphetamines Screen Positive ng/mL (Negative) H 01/09/22 11:40 U Benzodiazepines Scrn Negative ng/mL (Negative) 01/09/22 11:40 Urine Cocaine Screen Negative ng/mL (Negative) 01/09/22 11:40 U Marijuana (THC) Screen Negative ng/mL (Negative) 01/09/22 11:40 Discharge Plan Discharge Patient Disposition: Admitted As Inpatient Clinical Impression: Acute kidney injury superimposed on chronic kidney disease, Binocular vision loss, Acute hypokalemia, Acute hyponatremia, Elevated LFTs, Chronic CHF, Methamphetamine use Condition: Stable Coding Level of Care Code ED Scientific Software Developer for Chg Fwd Exam Detailed Documented by User: New Cassidy DO 01/12/22 08:22 HPI - Eye Problem General: Chief complaint: Neuro Symptoms/Deficit Stated complaint: flu symptoms vision gone Time Seen by Provider: 01/09/22 08:20 [facility] ED [facility]: Medical History (Updated 01/09/22 @ 17:26 by Camilo Singh MD) Acute kidney failure Cardiomyopathy EF- 48% with mod LVH, grade 1 diastolic dysfunction CHF (congestive heart failure), NYHA class III CKD (chronic kidney disease) Hypertension Ischemic bowel disease LVH (left ventricular hypertrophy) Methamphetamine abuse Pericardial effusion Resistant hypertension Substance abuse Surgical History S/P cholecystectomy Status post biopsy of kidney Status post insertion of hemodialysis catheter Family History Other CAD (coronary artery disease) Hypertension Social History Smoking and tobacco status: current every day smoker cigarettes Packs smoked per day: 0.5 Alcohol intake: never Other details last substance use: Reports of prior methamphetamine abuse per prior documentation. Juan zhang Household members: family and other Details: Lives with mother Housing: House Marital status: Single Current occupational status: unemployed Current gender identity: Female Physical Exam Neuro: BILL COMA SCALE: document GCS findings Bill coma scale total score: 15 Course Vital Signs: Vital signs: Vital Signs Temperature 97.6 F 01/09/22 17:17 Pulse Rate 75 01/09/22 17:19 Respiratory Rate 16 01/09/22 17:19 Blood Pressure 157/89 01/09/22 17:19 Pulse Oximetry 98 01/09/22 17:19 MDM - Eye Problem Medical Decision Making Patient is a 31-year-old female who presents to ED today with a complaint of binocular vision loss starting today around 7 AM. DDx for binocular vision loss could include migraine, seizure, vertebrobasilar ischemia, conversion disorder. Patient does not complain of a headache. She has no other neurologic complaints such as vertigo, aphasia, hemiparesis, slurred speech to suggest intracranial ischemia. Patient was noted to have acute renal injury in the setting of her CKD. US renal similar to previous exams. She has a critically low potassium at 2.5 with a normal magnesium. Sodium moderately low at 127. She does have elevations to her LFTs with a normal T bili. Patient does have diagnosed hep C. She does not complain of abdominal pain at this time. Patient has a history of CHF. CXR stable. BNP is over 70,000 which is consistent with previous lab values. She just had an echo on her last hospitalization. Dr. Cassidy will also evaluate patient speak to hospitalist for admission. Plans been made for hospitalization MRI was done as question of demyelinating disease do not have neurology available ordering to make transfer contacted [facility] they wanted to go ED to ED because it could get easier subspecialty evaluation in the ED. Additionally her hyponatremia has improved her hypokalemia has remained unchanged despite IV potassium supplement. She has acute kidney injury as well as a question of demyelinating disease on the MRI Dr. Zapata at the [facility] ER will takers direct transfer. Medical Records I reviewed the patient's medical records. Lab Data I reviewed the patient's lab results. : 01/09/22 08:55 01/09/22 16:[address] 01/09/22 08:46 IMPRESSION: No acute intracranial abnormality. Chest X-Ray 01/09/22 10:07 IMPRESSION: 1. Heart is enlarged but stable when compared to the prior exam. 2. Trace atelectasis or scar noted in the left lung base. Renal Ultrasound 01/09/22 10:09 IMPRESSION: 1. Increased echogenicity of the kidneys bilaterally with the kidneys otherwise appearing unremarkable. 2. Unremarkable urinary bladder ADDENDUM: 01/09/22 1112 Findings appear similar to prior exam. Head MRI 01/09/22 12:54 IMPRESSION: 1. Supratentorial and infratentorial abnormal brain signal. This is likely multifactorial in etiology and please see discussion. 2. No restricted diffusion to suggest actual brain infarct. No acute or chronic hemorrhage is identified. Critical results: THIS REPORT CONTAINS FINDINGS THAT MAY BE CRITICAL / URGENT (stroke protocol) TO PATIENT CARE. The findings were verbally communicated via telephone conference with CAMILO SINGH at 4:32 PM CDT on 01/09/2022. The findings were acknowledged and understood. Laboratory Results WBC 13.2 10^3/uL (4.0-10.0) H 01/09/22 08:55 RBC 3.44 10^6/uL (4.1-5.3) L 01/09/22 08:55 Hgb 10.3 g/dL (11.5-15.3) L 01/09/22 08:55 Hct 30.8 % (37.0-47.0) L 01/09/22 08:55 MCV 89.5 fl (81-99) 01/09/22 08:55 MCH 29.9 pg (28.0-34.0) 01/09/22 08:55 MCHC 33.4 g/dL (30.0-36.0) 01/09/22 08:55 RDW 18.2 % (12.1-15.1) H 01/09/22 08:55 Plt Count 214 10^3/cmm (130-400) 01/09/22 08:55 MPV 12.0 fL (7.4-10.4) H 01/09/22 08:55 Neut % (Auto) 84.1 % 01/09/22 08:55 Lymph % (Auto) 8.0 % 01/09/22 08:55 [place] % (Auto) 6.1 % 01/09/22 08:55 Eos % (Auto) 0.6 % 01/09/22 08:55 Baso % (Auto) 0.2 % 01/09/22 08:55 Neut # (Auto) 11.11 10^3/uL (1.8-7.7) H 01/09/22 08:55 Lymph # (Auto) 1.1 10^3/uL (0.8-4.8) 01/09/22 08:55 [place] # (Auto) 0.8 10^3/uL (0.2-0.9) 01/09/22 08:55 Eos # (Auto) 0.1 10^3/uL (0.0-0.8) 01/09/22 08:55 Baso # (Auto) 0.0 10^3/uL (0.0-0.1) 01/09/22 08:55 Nucleated RBC % (auto) 0.2 % 01/09/22 08:55 Nucleated RBCs # 0.0 /100WBC 01/09/22 08:55 PT 14.30 SECONDS (12.1-14.9) 01/09/22 10:20 INR 1.08 (0.8-1.2) 01/09/22 10:20 Sodium 130 mmol/L (136-145) L 01/09/22 16:34 Potassium 2.6 mmol/L (3.5-5.1) L* 01/09/22 16:34 Chloride 91 mmol/L (98-107) L 01/09/22 16:34 Carbon Dioxide 25 mmol/L (22-29) 01/09/22 16:34 Anion Gap 16.6 (5-19) 01/09/22 16:34 BUN 69 mg/dL (6-20) H 01/09/22 16:34 Creatinine 4.0 mg/dL (0.5-0.9) H 01/09/22 16:34 GFR Calculation 13.1 mL/min (90-130) L 01/09/22 16:34 Glucose 122 mg/dL (65-115) H 01/09/22 16:34 Calculated Osmolality 291 mOsm/kg (285-295) 01/09/22 16:34 Calcium 8.2 mg/dL (8.5-10.5) L 01/09/22 16:34 Magnesium 2.3 mg/dL (1.7-2.3) 01/09/22 08:55 Iron 42 ug/dL (37-145) 01/09/22 08:55 TIBC 256 mcg/dl 01/09/22 08:55 % Saturation 16.4 % (20-50) L 01/09/22 08:55 Unsat Iron Binding 214 ug/dL (112-347) 01/09/22 08:55 Total Bilirubin 1.0 mg/dL (0.15-1.2) 01/09/22 08:55 AST 242 U/L (0-32) H 01/09/22 08:55 ALT 621 U/L (0-33) H 01/09/22 08:55 Alkaline Phosphatase 141 IU/L (35-105) H 01/09/22 08:55 Creatine Kinase 173 U/L (26-192) 01/09/22 08:55 C-Reactive Protein 21.5 mg/L (0.0-4.9) H 01/09/22 08:55 NT-Pro-B Natriuret Pep > 04369 pg/mL (0-125) H 01/09/22 08:55 Total Protein 6.8 g/dL (6.6-8.7) 01/09/22 08:55 Albumin 3.5 g/dL (3.5-5.2) 01/09/22 08:55 Globulin 3.3 g/dL (1.3-4.6) 01/09/22 08:55 Lipase 31 U/L (13-60) 01/09/22 08:55 Procalcitonin 0.38 ng/mL (0-0.5) 01/09/22 08:55 Urine Color Yellow (Yellow) 01/09/22 11:40 Urine Appearance Cloudy (CLEAR) 01/09/22 11:40 Urine pH 5 (5-7) 01/09/22 11:40 Ur Specific [place] 1.015 (1.005-1.030) 01/09/22 11:40 Urine Protein 3+ (Negative) H 01/09/22 11:40 Urine Glucose (UA) Norm (Normal) 01/09/22 11:40 Urine Ketones Negative (Negative) 01/09/22 11:40 Urine Blood Neg (Negative) 01/09/22 11:40 Urine Nitrate Negative (Negative) 01/09/22 11:40 Urine Bilirubin Neg (Negative) 01/09/22 11:40 Urine Urobilinogen Norm mg/dL (Negative) 01/09/22 11:40 Ur Leukocyte Esterase Trace (Negative) H 01/09/22 11:40 Urine RBC None /hpf (0-2) 01/09/22 11:40 Urine WBC 15-25 /hpf (0-5) H 01/09/22 11:40 Ur Squamous Epith Cells Rare /hpf (0-5) 01/09/22 11:40 Amorphous Sediment Not Reportable 01/09/22 11:40 Urine Bacteria 4+ /hpf (NONE) H 01/09/22 11:40 Ur Random Sodium 20 mmol/L 01/09/22 11:40 Ur Random Potassium 28 mmol/L 01/09/22 11:40 Ur Random Chloride 19 mmol/L 01/09/22 11:40 Urine Opiates Screen Negative ng/mL (Negative) 01/09/22 11:40 Ur Barbiturates Screen Negative ng/mL (Negative) 01/09/22 11:40 Ur Phencyclidine Scrn Negative ng/mL (Negative) 01/09/22 11:40 Ur Amphetamines Screen Positive ng/mL (Negative) H 01/09/22 11:40 U Benzodiazepines Scrn Negative ng/mL (Negative) 01/09/22 11:40 Urine Cocaine Screen Negative ng/mL (Negative) 01/09/22 11:40 U Marijuana (THC) Screen Negative ng/mL (Negative) 01/09/22 11:40 Discharge Plan Discharge Patient Disposition: Admitted As Inpatient Clinical Impression: Acute kidney injury superimposed on chronic kidney disease, Binocular vision loss, Acute hypokalemia, Acute hyponatremia, Elevated LFTs, Chronic CHF, Methamphetamine use Condition: Stable Coding Level of Care Code ED Scientific Software Developer for Guillermo Fwd Exam Detailed
[2022-01-09 09:28] LABS: Basophils % 0.2 %; Eosinophils # 0.1 10^3/uL (0.0-0.8); Eosinophils % 0.6 %; Hematocrit 30.8 % (37.0-47.0); Hemoglobin 10.3 g/dL (11.5-15.3); Lymphocytes # 1.1 10^3/uL (0.8-4.8); Mean Corpuscular HGB Conc 33.4 g/dL (30.0-36.0); Mean Corpuscular Hemoglobin 29.9 pg (28.0-34.0); Mean Corpuscular Volume 89.5 fl (81-99); Monocytes # 0.8 10^3/uL (0.2-0.9); Monocytes % 6.1 %; Neutrophils # 11.11 10^3/uL (1.8-7.7); Neutrophils % 84.1 %; Nucleated Red Blood Cells % 0.2 %; Platelet Count 214 10^3/cmm (130-400); Red Blood Count 3.44 10^6/uL (4.1-5.3); Red Cell Distribution Width 18.2 % (12.1-15.1); White Blood Count 13.2 10^3/uL (4.0-10.0)
[2022-01-09 09:53] LABS: Alanine Aminotransferase 621 U/L (0-33); Albumin Level 3.5 g/dL (3.5-5.2); Alkaline Phosphatase 141 IU/L (35-105); Anion Gap 19.5 (5-19); Aspartate Amino Transferase 242 U/L (0-32); Blood Urea Nitrogen 73 mg/dL (6-20); Calcium 8.7 mg/dL (8.5-10.5); Carbon Dioxide 25 mmol/L (22-29); Chloride 85 mmol/L (98-107); Globulin 3.3 g/dL (1.3-4.6); Glomerular Filtration Rate 11.4 mL/min (90-130); Glucose 167 mg/dL (65-115); Osmolality Calculated 289 mOsm/kg (285-295); Sodium 127 mmol/L (136-145); Total Protein 6.8 g/dL (6.6-8.7)
[2022-01-09 09:54] LABS: Potassium 2.5 mmol/L (3.5-5.1)
--- NOTE | 2022-01-09 10:07 | XRR_ITS ---
PROCEDURE INFORMATION: Exam: XR Chest Exam date and time: 01/09/2022 10:52 AM Age: 31 years old Clinical indication: Dyspnea; Additional info: Chf TECHNIQUE: Imaging protocol: XR of the chest. Views: 1 view. Total images: 1 COMPARISON: CR (CHEST, ) 11/09/2021 5:47 PM FINDINGS: Lungs: Trace atelectasis or scar noted in the left lung base. Pleural spaces: Unremarkable. No pleural effusion. No pneumothorax. Heart/Mediastinum: Heart is enlarged but stable when compared to the prior exam. Bones/joints: Osseous structures are unchanged from the prior exam. XR/XR chest 1V portable [id number] IMPRESSION: 1. Heart is enlarged but stable when compared to the prior exam. 2. Trace atelectasis or scar noted in the left lung base.
--- NOTE | 2022-01-09 10:09 | USR_ITS ---
PROCEDURE INFORMATION: Exam: US Retroperitoneal; Complete; Kidneys and Bladder Exam date and time: 01/09/2022 10:25 AM Age: 31 years old Clinical indication: Other: Patient in renal failure; Additional info: Elevated kidney functions TECHNIQUE: Imaging protocol: Real-time ultrasound of the retroperitoneum with image documentation. Complete exam focused on the kidneys and bladder. Total images: 36 COMPARISON: US abdomen complete* [id number] 09/22/2020 12:27 PM FINDINGS: Liver: Increased echogenicity of the kidneys bilaterally with the kidneys otherwise appearing unremarkable. Right kidney: Increased echogenicity of the right kidney. No hydronephrosis, calculi nor masses. 10.9 cm length of right kidney. Left kidney: Increased echogenicity of the left kidney. No hydronephrosis, calculi, nor masses. 9.7 cm length of left kidney. Urinary bladder: The urinary bladder has a normal appearance. There is a normal wall thickness. No bladder calculi are detected.
[2022-01-09 10:21] LABS: Magnesium 2.3 mg/dL (1.7-2.3)
[2022-01-09] MEDS: potassium chloride ER 20 mEq Tablet 40 MEQ PO (10:25)
[2022-01-09] MEDS: sodium chloride 0.9% 1,000 ML 999 ML IV (10:26)
[2022-01-09] MEDS: lidocaine 1% 5 ML in potassium chloride premix 100 ML 50 ML IV (10:30)
[2022-01-09 10:37] LABS: INR 1.08 (0.8-1.2)
[2022-01-09 10:44] LABS: Lipase 31 U/L (13-60)
[2022-01-09 11:06] LABS: NT Pro B Type Natriuretic Pept > 70000 pg/mL (0-125)
[2022-01-09 12:25] LABS: Amphetamines Screen Urine Positive (Negative); Barbiturates Screen Urine Negative (Negative); Benzodiazepines Screen Urine Negative (Negative); Cocaine Screen Urine Negative (Negative); Opiate Screen Urine Negative (Negative); PCP Screen Urine Negative (Negative); THC Screen Urine Negative (Negative)
[2022-01-09 12:30] LABS: Creatine Phosphokinase 173 U/L (26-192)
[2022-01-09 12:37] LABS: Add Urine Microscopic? YES; Bilirubin Urine Neg (Negative); Blood Urine Neg (Negative); Glucose Urine UA Norm (Normal); Ketones Urine Negative (Negative); Leukocyte Esterase Urine Trace (Negative); Nitrate Urine Negative (Negative); Protein Urine 3+ (Negative); Specific Gravity, Urine 1.015 (1.005-1.030); Urine Appearance Cloudy (CLEAR); Urine Color Yellow (Yellow); Urobilinogen Urine Norm (Negative); pH Urine 5 (5-7)
[2022-01-09 12:38] LABS: Bacteria Urine 4+ /hpf; Squamous Epithelial Cell Urine RARE /hpf (0-5); WBC Urine 15-25 /hpf (0-5)
[2022-01-09 12:40] LABS: Add Urine Culture? Yes
--- NOTE | 2022-01-09 12:46 | PM.HP ---
Providers/Chief Complaint Primary Care Provider: Laurent Wolfe MD Chief Complaint: flu symptoms vision gone History of Present Illness Debo Little is a 31 year old female with a past medical history of IV meth use, she tells me that she has not used in many months, does report using oral Percocet a few days ago, history of chronic kidney disease, without dialysis for the last 6 months, history of hepatitis C, history of hypertension, history of.? Cardial effusion, history of ischemic bowel, Medications/Allergies Home Medications Medication Instructions Recorded Confirmed Last Taken Type dicyclomine 10 mg capsule 10 mg PO TID PRN 05/08/21 12/30/21 05/08/21 History labetalol 300 mg tablet 300 mg PO BID #60 tab 10/08/21 12/30/21 Unknown Rx docusate sodium 100 mg capsule 100 mg PO BID 11/10/21 12/30/21 Unknown History furosemide 40 mg tablet 40 mg PO BID@,16 #60 tab 11/13/21 12/30/21 Unknown Rx nifedipine 90 mg tablet,extended 90 mg PO DAILY #30 tab 11/13/21 12/30/21 Unknown Rx release 24 hr hydralazine 100 mg tablet 200 mg PO BID #336 tab 12/21/21 12/30/21 Unknown Rx glecaprevir 100 mg-pibrentasvir 40 3 tab PO DAILY 30 Days #84 tab 12/30/21 12/30/21 Unknown Rx mg tablet (Mavyret) Allergies Allergy/AdvReac Type Severity Reaction Status Date / Time No Known Allergies Allergy Verified 12/30/21 15:04 PFSH Acute PFSH: Medical History CHF (congestive heart failure), NYHA class III CKD (chronic kidney disease) Hypertension Methamphetamine abuse Substance abuse Surgical History S/P cholecystectomy Status post biopsy of kidney Status post insertion of hemodialysis catheter Family History Other CAD (coronary artery disease) Hypertension Social History Smoking and tobacco status: current every day smoker cigarettes Packs smoked per day: 0.5 Alcohol intake: never Other details last substance use: Reports of prior methamphetamine abuse per prior documentation. Juan zhang Household members: family and other Details: Lives with mother Housing: House Marital status: Single Current occupational status: unemployed Current gender identity: Female Female Reproductive History: Date of last menstrual period: 09/05/20 Vitals/I&O/Wt Last Vital Signs Temp 97.6 F 01/09/22 08:27 Pulse 64 01/09/22 08:27 Resp 17 01/09/22 08:27 BP 149/77 01/09/22 08:27 Pulse Ox 100 01/09/22 08:27 Weight last 48 hrs Weight 74.843 kg Physical Exam Urinary Catheter Management: Gabriel: Cath Placed During This Visit: yes Urinary Catheter Date of Insertion: 01/09/22 Urinary Catheter Time of Insertion: 11:40 Data : 01/09/22 08:55 01/09/22 08:55 Coding Level of Care Code Acute Information Systems Audit Manager for Guillermo Puente
--- NOTE | 2022-01-09 12:54 | USCV_ITS ---
Debo Little Age: 31 Gender: F : 1990 Exam Date: 01/09/2022 14:59 Ordering Phys: Camilo Mahmood MD Technologist: Exam Location: [facility] [place] Indication: per card effusion BP: 180 / 90 HR: 77 Rhythm: Sinus Technical Quality: Adequate MEASUREMENTS (Male / Female) Normal Values 2D ECHO LV Diastolic Diameter PLAX 5.0 cm 4.2 - 5.9 / 3.9 - 5.3 cm LV Systolic Diameter PLAX 3.5 cm IVS Diastolic Thickness 2.4 cm 0.6 - 1.0 / 0.6 - 0.9 cm IVS Systolic Thickness 2.6 cm LVPW Diastolic Thickness 2.1 cm 0.6 - 1.0 / 0.6 - 0.9 cm LVPW Systolic Thickness 3.0 cm LVOT Diameter 2.0 cm LV Ejection Fraction 2D Teich 55.3 % LV Ejection Fraction MOD 2C 52.6 % LV Ejection Fraction 2C AL 52.7 % LA Diameter 5.0 cm LA Width 6.4 cm M-MODE Aortic Annulus Diameter 3.2 cm LA Ao Ratio MM 1.8 MV E Point Septal Separation 1.5 cm FINDINGS Left Ventricle Severely increased left ventricular mass. Severely increased concentric wall thickness. Severely increased left ventricular diastolic volume. Severely increased left ventricular systolic volume. Mildly decreased left ventricular ejection fraction. Right Ventricle The right ventricle is normal in size and function. Right Atrium The right atrium is normal in size. Left Atrium The left atrium is mildly enlarged. Mitral Valve Structurally normal mitral valve without significant stenosis or prolapse. There is no mitral regurgitation or stenosis. Aortic Valve Structurally normal aortic valve without significant sclerosis or stenosis. There is no aortic regurgitation. Tricuspid Valve Structurally normal tricuspid valve without significant stenosis or regurgitation. Pulmonic Valve Structurally normal pulmonic valve Pericardium Trace to mild pericardial effusion Aorta Normal ascending aorta dimension. CONCLUSIONS Severely increased left ventricular mass. Severely increased concentric wall thickness. Severely increased left ventricular diastolic volume. Severely increased left ventricular systolic volume. Mildly decreased left ventricular ejection fraction. Trace to mild pericardial effusion Elaysed Neva ANSARI (Electronically Signed) Final Date: 10 January 2022 12:17 S
--- NOTE | 2022-01-09 12:54 | MRR_ITS ---
PROCEDURE INFORMATION: Exam: MR Head Without Contrast Exam date and time: 01/09/2022 2:06 PM Age: 31 years old Clinical indication: Visual disturbance; Additional info: Bilateral blurry vision, possible stroke, possible septic EM TECHNIQUE: Imaging protocol: MR of the head without contrast. COMPARISON: CT head wo con* [id number] 01/09/2022 9:15 AM FINDINGS: Brain: Patient has history of methamphetamine abuse. There is no evidence of restricted diffusion or acute infarct. There are cerebral white matter lesions which are elongated and some of which are perpendicular to lateral ventricles and demyelination and multiple sclerosis should be considered. These could also be microvascular white matter changes which could be associated also with basal spasm associated with drug usage. There is patchy and confluent increased signal within the cerebellum bilaterally. There is increased signal which is also patchy and confluent in bilateral brainstem extending from pontomesencephalic junction through upper visualized cervical cord. Some of these are also elongated such is in posterior home and left side of brainstem as well as several white matter lesions in cerebellum. This could also be demyelination. The more confluent areas is concerning for edema. This predominantly spares cortex. Posterior reversible encephalopathy syndrome should be considered. Patient blood pressure does reportedly run high. This however most commonly also involves the occipital lobes which is not present. There is patchy increased signal in the thalami bilaterally. Could also consider component of osmotic demyelination. Correlate with laboratory values. Other forms of encephalopathy including drug related, toxic metabolic, or infectious encephalopathy could also be considered. There is no evidence of acute or chronic intracranial hemorrhage. Cerebral ventricles: Normal. No ventriculomegaly. Bones/joints: Unremarkable as visualized. Paranasal sinuses: Mild mucosal sinus disease. No acute sinusitis. Mastoid air cells: No significant mastoid effusion. Orbital cavities: Unremarkable. Soft tissues: Unremarkable. MR/MR head wo con* [id number] IMPRESSION: 1. Supratentorial and infratentorial abnormal brain signal. This is likely multifactorial in etiology and please see discussion. 2. No restricted diffusion to suggest actual brain infarct. No acute or chronic hemorrhage is identified. Critical results: THIS REPORT CONTAINS FINDINGS THAT MAY BE CRITICAL / URGENT (stroke protocol) TO PATIENT CARE. The findings were verbally communicated via telephone conference with JASON SINGH at 4:32 PM CDT on 01/09/2022. The findings were acknowledged and understood.
[2022-01-09 13:32] LABS: Potassium, Radom Urine 28 mmol/L; Urine Random Sodium 20 mmol/L
[2022-01-09 13:35] LABS: Urine Random Chloride 19 mmol/L
[2022-01-09 13:37] LABS: C Reactive Protein 21.5 mg/L (0.0-4.9)
[2022-01-09 14:11] LABS: Procalcitonin 0.38 ng/mL (0-0.5)
[2022-01-09 14:47] LABS: Iron 42 ug/dL (37-145); Percent Saturation 16.4 % (20-50); Total Iron Binding Capacity 256 mcg/dl; Unsaturated Iron Binding 214 ug/dL (112-347)
[2022-01-09] MEDS: FUROsemide 10 mg/mL SDV 4mL 40 MG IVP (15:54)
[2022-01-09] MEDS: potassium chloride ER 20 mEq Tablet 80 MEQ PO (15:54)
--- NOTE | 2022-01-09 16:25 | PM.CONSULT ---
Providers/Reason For Consult Consulting Physician/Specialty*: Jyoti jN DO, telenephrology Reason for Consult*: DENISA, CKD, electrolyte imbalance Requesting Physician: Camilo Mahmood MD Attending Physician: Camilo Mahmood MD Primary Care Provider: Laurent Wolfe MD History of Present Illness History of Present Illness Debo Little is a 31 year old female presented to ER for evaluation sudden onset blindness. Could not eat or drink for 1 week due to flu symptoms Did not take BP meds x 4 days - resumed BP meds, shortly after reports loss of vision. Was taking aleve while sick Medications/Allergies Home Medications Medication Instructions Recorded Confirmed Last Taken Type dicyclomine 10 mg capsule 10 mg PO TID PRN 05/08/21 01/09/22 05/08/21 History labetalol 300 mg tablet 300 mg PO BID #60 tab 10/08/21 01/09/22 01/08/22 Rx docusate sodium 100 mg capsule 100 mg PO BID 11/10/21 01/09/22 01/08/22 History furosemide 40 mg tablet 40 mg PO BID@08,16 #60 tab 11/13/21 01/09/22 01/08/22 Rx nifedipine 90 mg tablet,extended 90 mg PO DAILY #30 tab 11/13/21 01/09/22 01/08/22 Rx release 24 hr hydralazine 100 mg tablet 200 mg PO BID #336 tab 12/21/21 01/09/22 01/08/22 Rx glecaprevir 100 mg-pibrentasvir 40 3 tab PO DAILY 30 Days #84 tab 12/30/21 01/09/22 Unknown Rx mg tablet (Mavyret) Allergies Allergy/AdvReac Type Severity Reaction Status Date / Time No Known Allergies Allergy Verified 12/30/21 15:04 Current Medications Generic Name Dose Route Start Last Admin Trade Name Freq PRN Reason Stop Dose Admin Furosemide 40 mg 01/09/22 13:00 01/09/22 15:54 Furosemide 10 Mg/Ml Sdv 4ml IVP 40 mg Q12H GENNY Administration PFSH Acute PFSH: Medical History CHF (congestive heart failure), NYHA class III CKD (chronic kidney disease) Hypertension Methamphetamine abuse Substance abuse Surgical History S/P cholecystectomy Status post biopsy of kidney Status post insertion of hemodialysis catheter Family History Other CAD (coronary artery disease) Hypertension Social History Smoking and tobacco status: current every day smoker cigarettes Packs smoked per day: 0.5 Alcohol intake: never Other details last substance use: Reports of prior methamphetamine abuse per prior documentation. Juan holcomb Household members: family and other Details: Lives with mother Housing: House Marital status: Single Current occupational status: unemployed Current gender identity: Female Female Reproductive History: Date of last menstrual period: 09/05/20 Vitals/I&O/Wt Last Vital Signs Temp 97.6 F 01/09/22 08:27 Pulse 64 01/09/22 08:27 Resp 17 01/09/22 08:27 BP 149/77 01/09/22 08:27 Pulse Ox 100 01/09/22 08:27 01/09/22 01/09/22 01/09/22 06:59 14:59 22:59 Intake Total 1105 / 1105 Balance 1105 / 1105 Weight last 48 hrs Weight 74.843 kg Physical Exam Const: OTHER: alert, answers questions and follows commands Extremity: NARRATIVE EXTREMITY EXAM: no edema Urinary Catheter Management: Gabriel: Cath Placed During This Visit: yes Urinary Catheter Date of Insertion: 01/09/22 Urinary Catheter Time of Insertion: 11:40 Data : 01/09/22 08:55 01/09/22 08:55 Other Labs: urine Na 20. calcium 8.7, TSAT 16% urinalysis 3+ protein, + WBC, CK normal urine drug screen + amphetamines Micro: Microbiology 01/09/22 13:12 Blood Culture - Preliminary Blood SPECIMEN COLLECTED 01/09/22 13:12 Blood Culture - Preliminary Blood SPECIMEN COLLECTED US: Radiologist's impression: Right kidney: Increased echogenicity of the right kidney. No hydronephrosis, calculi nor masses. 10.9 cm length of right kidney. Left kidney: Increased echogenicity of the left kidney. No hydronephrosis, calculi, nor masses. 9.7 cm length of left kidney. Urinary bladder: The urinary bladder has a normal appearance. There is a normal wall thickness. No bladder calculi are detected. Echo: Radiologist's impression: 10/2021: 1. Normal left ventricular cavity size and systolic function.??Severe concentric left ventricular hypertrophy.? Left?ventricular ejection fraction is estimated at 65 %.? No regional?wall motion abnormality. ?2. Right atrial pressure estimated at 15 mmHg. ?3. Pulmonary artery pressure estimated at 42 mmHg. ?4. Moderate to large circumferential pericardial effusion (1.4cm along right ventricle free wall and 2.3 cm posteriorly along left ventricle.? No evidence of hemodynamic compromise based on?the study. ?5. No significant change in size of effusion when compared to 11/09/2021. A&P Assessment and plan (1) Anemia: Status: Acute Plan Seen via telemedicine with assistance of RN at bedside. 1. Acute kidney injury with hyponatremia and hypokalemia, low urine sodium - likely prerenal. Received 1 L NSS, IV and oral K replacement 2. Stage 4 chronic kidney disease, baseline eGFR 16- 18 ml/min 3. Hypertension with history of severe LVH 4. Anemia, low TSAT, ferritin pending 5. Probable UTI 6. History of Hep C with increased LFTs 7. October echocardiogram with pericardial effusion Recommend: IVF hydration. Hold lasix. Cautious administration of antihypertensives. Repeat BMP pending Consult Attestations Medical Necessity Statement: see above Time Spent in Patient Care: 30 Coding Level of Care Code Acute Shooter'S Helper for Nomang Kwame Diagnoses Anemia D64.9
[2022-01-09 17:01] LABS: Anion Gap 16.6 (5-19); Blood Urea Nitrogen 69 mg/dL (6-20); Calcium 8.2 mg/dL (8.5-10.5); Carbon Dioxide 25 mmol/L (22-29); Chloride 91 mmol/L (98-107); Creatinine Clr Calc Pharmacy 19.3012; Glomerular Filtration Rate 13.1 mL/min (90-130); Glucose 122 mg/dL (65-115); Osmolality Calculated 291 mOsm/kg (285-295); Sodium 130 mmol/L (136-145)
--- NOTE | 2022-01-09 17:10 | P.CONIM_ITS ---
Providers/Reason For Consult Consulting Physician/Specialty*: Internal Medicine/Dr. Singh Reason for Consult*: Binocular vision loss, DENISA on CKA, uncontrolled HTN Requesting Physician: ER Attending Physician: Camilo Singh MD Primary Care Provider: Laurent Wolfe MD History of Present Illness History of Present Illness Debo Little is a 31 year old female with past medical history of meth abuse, CKD previously on dialysis(not on dialysis for last 6 to 7 months, hepatitis C, pericardial effusion, uncontrolled high blood pressure, ischemic bowel disease who presented to the ER today because of bilateral vision loss since today morning at 7 AM. As per the patient she had some blurry vision last night when she went to bed. Prior to that for last 5 days she has been fighting' abdominal flu' with which she was complaining of occasional episode of diarrhea, abdominal pain and nausea. She states she did not use amphetamine for many months until 4 days ago when she took amphetamine to feel better from the abdominal bug. She did not take her antihypertensives for a week until last night when she was able to keep her medicines down. Has not been checking her blood pressures at home. Otherwise denies any headache, nausea, vomiting, diarrhea, abdominal pain. Blood work in the ER showed a white count 13.2, hemoglobin of 10.3, platelet count of 214, INR 1.08, sodium of 127, potassium of 2.5, chloride of 85, creatinine of 4.5, so BUN of 73, AST/ALT of 242/621,-phosphatase of 141, proBNP of more than 70,[address] head negative for any acute abnormality, UA negative for nitrite, trace leuk esterase, drug screen positive for amphetamines. I requested for MRI brain, CRP pro-Jordy, iron panel. CRP came back at 21.5, MRI was reported concerning for possible demyelinating disorder versus multiple sclerosis versus generalized press syndrome versus possible infectious encephalopathy. On examination patient is lying comfortably in bed with lights off in the room. She states she is not able to see at all. On switching to lights on she does not complain of photophobia, does not blink, states she knows the lights are on but cannot make out any outlines, denies any black curtain in front of eyes. Review of Systems General: Reports: 10 or more systems reviewed and unremarkable except in HPI and below Const: Denies: fever(s), chills, body aches, change in appetite, change in weight, malaise, night sweats, diaphoresis, change in sleep pattern, daytime sleepiness or snoring Eyes: Denies: change in vision, blurry vision, photophobia, eye discomfort or eye discharge ENMT: Denies: throat pain, enlarged tonsils, hoarseness, mouth pain, oral sores, dry mouth, tinnitus, nasal congestion or post nasal drip Card: Denies: chest pain, palpitations, irregular heart rhythm, edema, swelling of feet/ankles, lightheadedness, syncope, pre-syncope, dyspnea on exertion, orthopnea, leg pain with exertion or acrocyanosis Resp: Denies: dyspnea, productive cough, non-productive cough, wheezing, stridor, pain on inspiration, change in phlegm color, hemoptysis or chest congestion GI: Denies: abdominal pain, nausea, vomiting, hematemesis, coffee ground emesis, dysphagia, heartburn, diarrhea, constipation, bloating, GI cramping, change in bowel habits, pain on defecation, hematochezia or melena : Denies: flank pain, dysuria, urinary frequency, urinary urgency, urinary hesitancy, nocturia or hematuria Musc: Denies: neck pain, back pain, extremity pain, joint pain, joint swelling, joint redness, joint stiffness or limited range of motion Neuro: Denies: headache(s), numbness in extremities, weakness in extremities, sensory changes, lack of coordination, difficulty walking, frequent falls, dizziness, vertigo, confusion, Slurred speech present, difficulty communicating thoughts or seizure-like activity Psych: Denies: anxiety, depression, mood swings, panic attacks, hopelessness or irritability Endo: Denies: polyuria, polydipsia, tired all the time, cold intolerance, excessive sweating, flushing or heat intolerance Bhavin/Lymph: Denies: easy bruising or easy bleeding All/Imm: Denies: tongue swelling, facial swelling or acute wheezing Medications/Allergies Home Medications Medication Instructions Recorded Confirmed Last Taken Type dicyclomine 10 mg capsule 10 mg PO TID PRN 05/08/21 01/09/22 05/08/21 History labetalol 300 mg tablet 300 mg PO BID #60 tab 10/08/21 01/09/22 01/08/22 Rx docusate sodium 100 mg capsule 100 mg PO BID 11/10/21 01/09/22 01/08/22 History furosemide 40 mg tablet 40 mg PO BID@,16 #60 tab 11/13/21 01/09/22 01/08/22 Rx nifedipine 90 mg tablet,extended 90 mg PO DAILY #30 tab 11/13/21 01/09/22 01/08/22 Rx release 24 hr hydralazine 100 mg tablet 200 mg PO BID #336 tab 12/21/21 01/09/22 01/08/22 Rx glecaprevir 100 mg-pibrentasvir 40 3 tab PO DAILY 30 Days #84 tab 12/30/21 01/09/22 Unknown Rx mg tablet (Mavyret) Allergies Allergy/AdvReac Type Severity Reaction Status Date / Time No Known Allergies Allergy Verified 12/30/21 15:04 PFSH Acute PFSH: Medical History (Updated 01/09/22 @ 17:26 by Camilo Singh MD) Acute kidney failure Cardiomyopathy EF- 48% with mod LVH, grade 1 diastolic dysfunction CHF (congestive heart failure), NYHA class III CKD (chronic kidney disease) Hypertension Ischemic bowel disease LVH (left ventricular hypertrophy) Methamphetamine abuse Pericardial effusion Resistant hypertension Substance abuse Surgical History S/P cholecystectomy Status post biopsy of kidney Status post insertion of hemodialysis catheter Family History Other CAD (coronary artery disease) Hypertension Social History Smoking and tobacco status: current every day smoker cigarettes Packs smoked per day: 0.5 Alcohol intake: never Other details last substance use: Reports of prior methamphetamine abuse per prior documentation. Juan holcomb Household members: family and other Details: Lives with mother Housing: House Marital status: Single Current occupational status: unemployed Current gender identity: Female Female Reproductive History: Date of last menstrual period: 09/05/20 Vitals/I&O/Wt Last Vital Signs Temp 97.6 F 01/09/22 08:27 Pulse 64 01/09/22 08:27 Resp 17 01/09/22 08:27 BP 149/77 01/09/22 08:27 Pulse Ox 100 01/09/22 08:27 01/09/22 01/09/22 01/09/22 06:59 14:59 22:59 Intake Total 1105 / 1105 Balance 1105 / 1105 Weight last 48 hrs Weight 74.843 kg Physical Exam Narrative: General: No acute distress, AO x3, anxious HEENT: PERRLA, pupils bilaterally equal and dilated, sluggishly reactive Chest: Normal vesicular breath sounds, no added sounds, equal good air entry bilaterally CVS: S1-S2 regular, no murmurs, no tachycardia, no gallops, no rubs Abdomen: Soft, nontender, no organomegaly, bowel sounds present Neuro: No focal deficits, no facial deformity, AO x3, power 5/5 in all limbs, Kernig's negative Urinary Catheter Management: Gabriel: Cath Placed During This Visit: yes Urinary Catheter Date of Insertion: 01/09/22 Urinary Catheter Time of Insertion: 11:40 Data : 01/09/22 08:55 01/09/22 16:34 Other Labs: Radiology Impressions Head CT 01/09/22 08:46 IMPRESSION: No acute intracranial abnormality. Chest X-Ray 01/09/22 10:07 IMPRESSION: 1. Heart is enlarged but stable when compared to the prior exam. 2. Trace atelectasis or scar noted in the left lung base. Renal Ultrasound 01/09/22 10:09 IMPRESSION: 1. Increased echogenicity of the kidneys bilaterally with the kidneys otherwise appearing unremarkable. 2. Unremarkable urinary bladder ADDENDUM: 01/09/22 1112 Findings appear similar to prior exam. Head MRI 01/09/22 12:54 FINDINGS: Brain: Patient has history of methamphetamine abuse. There is no evidence of restricted diffusion or acute infarct. There are cerebral white matter lesions which are elongated and some of which are perpendicular to lateral ventricles and demyelination and multiple sclerosis should be considered. These could also be microvascular white matter changes which could be associated also with basal spasm associated with drug usage. There is patchy and confluent increased signal within the cerebellum bilaterally. There is increased signal which is also patchy and confluent in bilateral brainstem extending from pontomesencephalic junction through upper visualized cervical cord. Some of these are also elongated such is in posterior home and left side of brainstem as well as several white matter lesions in cerebellum. This could also be demyelination. The more confluent areas is concerning for edema. This predominantly spares cortex. Posterior reversible encephalopathy syndrome should be considered. Patient blood pressure does reportedly run high. This however most commonly also involves the occipital lobes which is not present. There is patchy increased signal in the thalami bilaterally. Could also consider component of osmotic demyelination. Correlate with laboratory values. Other forms of encephalopathy including drug related, toxic metabolic, or infectious encephalopathy could also be considered. There is no evidence of acute or chronic intracranial hemorrhage. Cerebral ventricles: Normal. No ventriculomegaly. Bones/joints: Unremarkable as visualized. Paranasal sinuses:? Mild mucosal sinus disease. No acute sinusitis. Mastoid air cells: No significant mastoid effusion. Orbital cavities: Unremarkable. Soft tissues:? Unremarkable. IMPRESSION: 1. Supratentorial and infratentorial abnormal brain signal. This is likely multi factorial in etiology and please see discussion. 2. No restricted diffusion to suggest actual brain infarct. No acute or chronic hemorrhage is identified. Critical results: THIS REPORT CONTAINS FINDINGS THAT MAY BE CRITICAL / URGENT (stroke protocol) TO PATIENT CARE. The findings were verbally communicated via telephone conference with CAMILO SINGH at 4:32 PM CDT on 01/09/2022. The findings were acknowledged and understood. Laboratory Results WBC 13.2 10^3/uL (4.0-10.0) H 01/09/22 08:55 RBC 3.44 10^6/uL (4.1-5.3) L 01/09/22 08:55 Hgb 10.3 g/dL (11.5-15.3) L 01/09/22 08:55 Hct 30.8 % (37.0-47.0) L 01/09/22 08:55 MCV 89.5 fl (81-99) 01/09/22 08:55 MCH 29.9 pg (28.0-34.0) 01/09/22 08:55 MCHC 33.4 g/dL (30.0-36.0) 01/09/22 08:55 RDW 18.2 % (12.1-15.1) H 01/09/22 08:55 Plt Count 214 10^3/cmm (130-400) 01/09/22 08:55 MPV 12.0 fL (7.4-10.4) H 01/09/22 08:55 Neut % (Auto) 84.1 % 01/09/22 08:55 Lymph % (Auto) 8.0 % 01/09/22 08:55 Mineral % (Auto) 6.1 % 01/09/22 08:55 Eos % (Auto) 0.6 % 01/09/22 08:55 Baso % (Auto) 0.2 % 01/09/22 08:55 Neut # (Auto) 11.11 10^3/uL (1.8-7.7) H 01/09/22 08:55 Lymph # (Auto) 1.1 10^3/uL (0.8-4.8) 01/09/22 08:55 Mineral # (Auto) 0.8 10^3/uL (0.2-0.9) 01/09/22 08:55 Eos # (Auto) 0.1 10^3/uL (0.0-0.8) 01/09/22 08:55 Baso # (Auto) 0.0 10^3/uL (0.0-0.1) 01/09/22 08:55 Nucleated RBC % (auto) 0.2 % 01/09/22 08:55 Nucleated RBCs # 0.0 /100WBC 01/09/22 08:55 PT 14.30 SECONDS (12.1-14.9) 01/09/22 10:20 INR 1.08 (0.8-1.2) 01/09/22 10:20 Sodium 130 mmol/L (136-145) L 01/09/22 16:34 Potassium 2.6 mmol/L (3.5-5.1) L* 01/09/22 16:34 Chloride 91 mmol/L (98-107) L 01/09/22 16:34 Carbon Dioxide 25 mmol/L (22-29) 01/09/22 16:34 Anion Gap 16.6 (5-19) 01/09/22 16:34 BUN 69 mg/dL (6-20) H 01/09/22 16:34 Creatinine 4.0 mg/dL (0.5-0.9) H 01/09/22 16:34 GFR Calculation 13.1 mL/min (90-130) L 01/09/22 16:34 Glucose 122 mg/dL (65-115) H 01/09/22 16:34 Calculated Osmolality 291 mOsm/kg (285-295) 01/09/22 16:34 Calcium 8.2 mg/dL (8.5-10.5) L 01/09/22 16:34 Magnesium 2.3 mg/dL (1.7-2.3) 01/09/22 08:55 Iron 42 ug/dL (37-145) 01/09/22 08:55 TIBC 256 mcg/dl 01/09/22 08:55 % Saturation 16.4 % (20-50) L 01/09/22 08:55 Unsat Iron Binding 214 ug/dL (112-347) 01/09/22 08:55 Total Bilirubin 1.0 mg/dL (0.15-1.2) 01/09/22 08:55 AST 242 U/L (0-32) H 01/09/22 08:55 ALT 621 U/L (0-33) H 01/09/22 08:55 Alkaline Phosphatase 141 IU/L (35-105) H 01/09/22 08:55 Creatine Kinase 173 U/L (26-192) 01/09/22 08:55 C-Reactive Protein 21.5 mg/L (0.0-4.9) H 01/09/22 08:55 NT-Pro-B Natriuret Pep > 55514 pg/mL (0-125) H 01/09/22 08:55 Total Protein 6.8 g/dL (6.6-8.7) 01/09/22 08:55 Albumin 3.5 g/dL (3.5-5.2) 01/09/22 08:55 Globulin 3.3 g/dL (1.3-4.6) 01/09/22 08:55 Lipase 31 U/L (13-60) 01/09/22 08:55 Procalcitonin 0.38 ng/mL (0-0.5) 01/09/22 08:55 Urine Color Yellow (Yellow) 01/09/22 11:40 Urine Appearance Cloudy (CLEAR) 01/09/22 11:40 Urine pH 5 (5-7) 01/09/22 11:40 Ur Specific [place] 1.015 (1.005-1.030) 01/09/22 11:40 Urine Protein 3+ (Negative) H 01/09/22 11:40 Urine Glucose (UA) Norm (Normal) 01/09/22 11:40 Urine Ketones Negative (Negative) 01/09/22 11:40 Urine Blood Neg (Negative) 01/09/22 11:40 Urine Nitrate Negative (Negative) 01/09/22 11:40 Urine Bilirubin Neg (Negative) 01/09/22 11:40 Urine Urobilinogen Norm mg/dL (Negative) 01/09/22 11:40 Ur Leukocyte Esterase Trace (Negative) H 01/09/22 11:40 Urine RBC None /hpf (0-2) 01/09/22 11:40 Urine WBC 15-25 /hpf (0-5) H 01/09/22 11:40 Ur Squamous Epith Cells Rare /hpf (0-5) 01/09/22 11:40 Amorphous Sediment Not Reportable 01/09/22 11:40 Urine Bacteria 4+ /hpf (NONE) H 01/09/22 11:40 Ur Random Sodium 20 mmol/L 01/09/22 11:40 Ur Random Potassium 28 mmol/L 01/09/22 11:40 Ur Random Chloride 19 mmol/L 01/09/22 11:40 Urine Opiates Screen Negative ng/mL (Negative) 01/09/22 11:40 Ur Barbiturates Screen Negative ng/mL (Negative) 01/09/22 11:40 Ur Phencyclidine Scrn Negative ng/mL (Negative) 01/09/22 11:40 Ur Amphetamines Screen Positive ng/mL (Negative) H 01/09/22 11:40 U Benzodiazepines Scrn Negative ng/mL (Negative) 01/09/22 11:40 Urine Cocaine Screen Negative ng/mL (Negative) 01/09/22 11:40 U Marijuana (THC) Screen Negative ng/mL (Negative) 01/09/22 11:40 Micro: Microbiology 01/09/22 13:12 Blood Culture - Preliminary Blood SPECIMEN COLLECTED 01/09/22 13:12 Blood Culture - Preliminary Blood SPECIMEN COLLECTED A&P Assessment and plan (1) Binocular vision loss: Status: Acute (2) Acute kidney injury superimposed on chronic kidney disease: Status: Acute (3) Acute hypokalemia: Status: Acute (4) Acute hyponatremia: Status: Acute (5) Elevated LFTs: Status: Acute (6) Methamphetamine use: Status: Acute (7) Resistant hypertension: Status: Acute (8) Anemia: Status: Acute Plan Binocular vision loss: Uncertain etiology. Stroke ruled out with MRI brain. Unfortunately in Ms. Bertrand case this could be multifactorial. She does have hyponatremia and hypokalemia currently which can both lead to demyelinating disorder. She does have history of extremely high blood pressures with noncompliance to medication which could also lead to press syndrome. With her history of amphetamine abuse and recent use 4 days ago this could be secondary to occult sepsis though currently her vitals are stable and she is afebrile. Cannot rule out conversion disorder as well. Strict blood pressure control. Restart home dose of labetalol 300 twice daily, hydralazine 200 mg twice daily, nifedipine 90 mg daily. Unfortunately neurology is not available currently at the hospital and patient being 31-year-old with array of possibilities of neurological disorder including MS, demyelinating disorder patient needs to be at a facility where his neurology and ophthalmology is available. We will request for transfer to a higher center for further work-up and management. DENISA on CKD: Not on dialysis for last 7 to 8 months. Hyponatremia/hypokalemia: Most likely secondary to dehydration. Appreciate nephrology recommendation. Start on normal saline 50 cc/h. Repeat BMP in 4 hours if patient still not transferred out. Check blood cultures. Patient would require a lumbar puncture. History of congestive heart failure with pericardial effusion: Will need an echocardiogram. Compensated currently. Hold off on Lasix. Monitor blood pressures. Telemetry. Continue other chronic home medications. Start on oral iron supplementation. Full code. Protonix for PUD prophylaxis. Heparin 5000 every 12 for DVT prophylaxis. Care discussed in detail with Dr. Cassidy. He is agreeable to try transfer at a higher center. Consult Attestations Medical Necessity Statement: Patient requires transfer to a higher center for neurology and ophthalmology given binocular vision loss in a 31-year-old female with possibilities of multiple etiologies including MS, demyelinating disorder, possibility of infectious encephalopathy versus press versus possible conversion disorder. Time Spent in Patient Care: Greater than 35 minutes Coding Level of Care Code Acute [employer] History Comprehensive Exam Comprehensive Medical Decision Making High Complexity Diagnoses Binocular vision loss H54.3 Acute kidney injury superimposed on chronic kidney disease N17.9; N18.9 Acute hypokalemia E87.6 Acute hyponatremia E87.1 Elevated LFTs R79.89 Methamphetamine use F15.10 Resistant hypertension I10 Anemia D64.9
--- NOTE | 2022-01-09 17:16 | USR_ITS ---
NOTE: Report was unsigned for reason: Order was edited. Original Signature date and time was: 01/09/2022 1111 Ordering Provider/Ordering MD: Arleth Heaton Date of Service: 01/09/22 Procedure(s): US renal BI with PV bladder Accession Number(s): [id number] Report Number: [id number] ADDENDUM US/US renal BI with PV bladder Findings appear similar to prior exam. Addendum Dictated By: Raul Cota MD Addendum Signed By: Raul Cota MD Signed Date/Time: 01/09/22 1112 Addendum Cosigned By: PROCEDURE INFORMATION: Exam: US Retroperitoneal; Complete; Kidneys and Bladder Exam date and time: 01/09/2022 10:25 AM Age: 31 years old Clinical indication: Other: Patient in renal failure; Additional info: Elevated kidney functions TECHNIQUE: Imaging protocol: Real-time ultrasound of the retroperitoneum with image documentation. Complete exam focused on the kidneys and bladder. Total images: 36 COMPARISON: US abdomen complete* [id number] 09/22/2020 12:27 PM FINDINGS: Liver: Increased echogenicity of the kidneys bilaterally with the kidneys otherwise appearing unremarkable. Right kidney: Increased echogenicity of the right kidney. No hydronephrosis, calculi nor masses. 10.9 cm length of right kidney. Left kidney: Increased echogenicity of the left kidney. No hydronephrosis, calculi, nor masses. 9.7 cm length of left kidney. Urinary bladder: The urinary bladder has a normal appearance. There is a normal wall thickness. No bladder calculi are detected. US/US renal BI with PV bladder IMPRESSION: 1. Increased echogenicity of the kidneys bilaterally with the kidneys otherwise appearing unremarkable. 2. Unremarkable urinary bladder Dictated By: Raul Cota MD Signed By: Raul Cota MD Signed Date/Time: 01/09/22 1111 DD/ 1025 MTDD US/US renal BI* [id number] IMPRESSION: 1. Increased echogenicity of the kidneys bilaterally with the kidneys otherwise appearing unremarkable. 2. Unremarkable urinary bladder ADDENDUM: 01/09/22 1112 Findings appear similar to prior exam.
[2022-01-09 17:17] VITALS: BP 155/84; PULSE 68; RESP 17; TEMP 36.4; O2SAT 100
[2022-01-09 17:19] VITALS: BP 157/89; PULSE 75; RESP 16; O2SAT 98
[2022-01-09 17:26] LABS: Potassium 2.6 mmol/L (3.5-5.1)
[2022-01-09] MEDS: heparin 5,000 unit/mL INJ 1 mL 5000 UNIT SUBCUT (20:27)
[2022-01-09] MEDS: docusate sodium 100 mg Capsule PO (20:30)
[2022-01-09] MEDS: pantoprazole DR 40 mg Tablet PO (20:30)
[2022-01-09] MEDS: hyDRALAzine 50 mg Tablet 200 MG PO (20:31)
[2022-01-09] MEDS: ferrous gluconate 324 mg Tablet PO (20:31)
[2022-01-09] MEDS: potassium chloride premix 100 ML 25 MEQ IV (20:31)
[2022-01-09] MEDS: labetalol 200 mg Tablet 300 MG PO (20:31)
== END 2022-01-09 21:33 | disposition admitted as inpatient to this hospital (09) ==
PROVIDERS: Internal Medicine; Physician Assistant; Emergency Provider Family Medicine; PCP Family Medicine; Visit Provider Student in an Organized Health Care Education/Training Program
DX: H54.3 Unqualified visual loss, both eyes (principal); I13.0 Hypertensive heart and chronic kidney disease with heart failure and stage 1 through stage 4 chronic kidney disease, or unspecified chronic kidney disease; N18.9 Chronic kidney disease, unspecified; I50.9 Heart failure, unspecified; E87.6 Hypokalemia; E87.1 Hypo-osmolality and hyponatremia; F15.90 Other stimulant use, unspecified, uncomplicated; R79.89 Other specified abnormal findings of blood chemistry; F17.210 Nicotine dependence, cigarettes, uncomplicated
CPT/HCPCS: 36415; 51702; 70450; 70551; 71045; 76770; 76857; 80048; 80053; 80306; 81001; 82436; 82550; 83540; 83550; 83690; 83735; 83880; 84133; 84145; 84300; 85025; 85610; 86140; 87040; 87077; 87086; 87186; 87205; 87641; 93308; 96372; 99283; J1644; J1940; J3480; J7030; Q3014

== ENCOUNTER → 2022-02-02 14:30 | Outpatient (BNVA) | payer MEDICARE, MEDICAID, SELFPAY | PROVIDERS: PCP Family Medicine; Visit Provider Internal Medicine | DX: B19.20 Unspecified viral hepatitis C without hepatic coma (principal); N17.9 Acute kidney failure, unspecified | CPT/HCPCS: 87902 ==

== ENCOUNTER 2022-02-04 20:23 | Emergency (ER) | payer MEDICARE, MEDICAID, SELFPAY ==
[2022-02-04 20:32] VITALS: BP 153/101; PULSE 81; RESP 16; TEMP 36.4; O2SAT 98; BMI 28.3
[2022-02-04 20:42] VITALS: BP 145/89; PULSE 84; RESP 17; O2SAT 99
--- NOTE | 2022-02-04 20:44 | W.ED.WEAKNES ---
HPI - Weakness General: Chief complaint: Weakness Stated complaint: L side of face not moving Time Seen by Provider: 02/04/22 20:39 Source: patient Mode of arrival: ambulatory Limitations: no limitations History of Present Illness: 31-year-old female who states that over the last 2 days she has noticed facial droop does have a severe facial droop to the left side unable to wrinkle her eyebrows or close her eye completely she denies any headache denies any fever denies any worsening proving factors no history of Henderson's palsy before. Associated symptoms: Denies chest pain, chills, dysuria, easy bruising, fever(s), headache(s), nausea or vomiting Review of Systems Const: Denies: fever(s), chills, body aches or change in appetite Eyes: Denies: blurry vision or eye discomfort ENMT: Denies: throat pain or dental pain Card: Denies: chest pain Resp: Denies: dyspnea GI: Denies: abdominal pain, nausea, vomiting or diarrhea : Denies: dysuria Musc: Denies: neck pain or back pain Skin/Breast: Denies: rash Neuro: Denies: headache(s) Psych: Denies: depression Bhavin/Lymph: Denies: easy bruising All/Imm: Denies: urticaria PFSH ED PFSH: Medical History (Updated 02/04/22 @ 20:45 by Candy Yuan MD) Acute kidney failure Cardiomyopathy EF- 48% with mod LVH, grade 1 diastolic dysfunction CHF (congestive heart failure), NYHA class III CKD (chronic kidney disease) Hypertension Ischemic bowel disease LVH (left ventricular hypertrophy) Methamphetamine abuse Pericardial effusion Resistant hypertension Substance abuse Surgical History S/P cholecystectomy Status post biopsy of kidney Status post insertion of hemodialysis catheter Family History Other CAD (coronary artery disease) Hypertension Social History Smoking and tobacco status: current every day smoker cigarettes Packs smoked per day: 0.5 Alcohol intake: never Other details last substance use: Reports of prior methamphetamine abuse per prior documentation. Curr zhang Household members: family and other Details: Lives with mother Housing: House Marital status: Single Current occupational status: unemployed Current gender identity: Female Female Reproductive History: Date of last menstrual period: 09/05/20 Physical Exam Const: COMMON NORMALS: no acute distress, patient oriented x3 and healthy appearing HENMT: COMMON NORMALS: normocephalic and atraumatic HEAD & SCALP: normocephalic and atraumatic Eye: COMMON NORMALS: Equal, round and reactive pupils present and EOMs intact bilaterally PUPIL: Yes Equal, round and reactive pupils present Neck/C-Spine: COMMON NORMALS: full ROM and supple Chest: COMMONS NORMALS: normal inspection of the chest and normal palpation of entire chest wall Resp: COMMON NORMALS: normal respiratory effort, No retractions, No use of accessory muscles and clear to auscultation bilaterally AUSCULTATION: clear to auscultation bilaterally Cardio: COMMON NORMALS: regular rate, regular rhythm and No murmurs present (Cardio) RATE: regular rate RHYTHM: regular rhythm GI: COMMON NORMALS: Normal to inspection, nondistended, normoactive bowel sounds present, Soft to palpation, non-tender and no masses PALPATION: Yes Soft to palpation Extremity: COMMON NORMALS: normal to inspection and full ROM Neuro: COMMON NORMALS: patient oriented x3 and moves all extremities OTHER: Dense facial palsy to the left side of the face Psych: COMMON NORMALS: mental status grossly normal, Normal thought process present and cooperative THOUGHT PROCESS: Normal thought process present Skin: COMMON NORMALS: no rashes or lesions noted and no wounds GENERAL SKIN EXAM: no rashes or lesions noted Course Vital Signs: Vital signs: Vital Signs Temperature 97.5 F L 02/04/22 20:32 Pulse Rate 84 02/04/22 20:42 Respiratory Rate 17 02/04/22 20:42 Blood Pressure 145/89 02/04/22 20:42 Pulse Oximetry 99 02/04/22 20:42 MDM - Weakness Medical Decision Making Patient presents here with Henderson's palsy dense facial paralysis we will place her on acyclovir and prednisone informed her to use artificial tears and that left eye taper should eye shut at night. Discharge Plan Discharge Patient Disposition: Home Clinical Impression: Henderson's palsy Condition: Stable Prescriptions: New prednisone 50 mg tablet 50 mg PO DAILY Qty: 5 0RF acyclovir 400 mg tablet 400 mg PO 5XD 7 Days Qty: 35 0RF Rx Instructions: space evenly during waking hours No Action hydralazine 100 mg tablet 200 mg PO BID Qty: 336 1RF labetalol 300 mg tablet 300 mg PO BID Qty: 60 2RF Mavyret 100-40 mg tablet 3 tab PO DAILY 30 Days Qty: 84 2RF Rx Instructions: must administer with a meal/food docusate sodium 100 mg capsule 100 mg PO BID 0RF furosemide 40 mg Tablet 40 mg PO BID@08,16 Qty: 60 0RF nifedipine 90 mg tablet extended release 24hr 90 mg PO DAILY Qty: 30 0RF dicyclomine 10 mg capsule 10 mg PO TID PRN (Reason: Cramps) 0RF Discharge Orders: Discharge ED (Routine); Ordered 02/04/22 Ordered By: Candy Yuan Referrals: Laurent Wolfe MD [Primary Care Provider] - 1-3 days Discharge Diet: Advance as tolerated Discharge Activity: Resume usual activity Patient Instructions: Henderson Palsy (ED) Coding Level of Care Code ED [employer]iting [employer]
[2022-02-04 20:49] VITALS: PULSE 78; RESP 17; O2SAT 99
== END 2022-02-04 20:51 | disposition home or self-care (01) ==
PROVIDERS: Emergency Provider Emergency Medicine; PCP Family Medicine
DX: G51.0 Bell's palsy (principal); F17.210 Nicotine dependence, cigarettes, uncomplicated
CPT/HCPCS: 99281

== ENCOUNTER 2022-02-19 14:25 | Inpatient (IN) | payer MEDICARE, MEDICAID, SELFPAY ==
[2022-02-19] VITALS (13 sets, daily range): BP systolic 128–230; BP diastolic 76–135; PULSE 68–95; RESP 16–29; TEMP 36.6–37.2; O2SAT 90–98; BMI 25.0
--- NOTE | 2022-02-19 15:05 | ED_ITS ---
HPI - Nausea/Vomiting/Diarrhea General: Chief complaint: Nausea/Vomiting/Diarrhea Stated complaint: dehydration, vomiting Time Seen by Provider: 02/19/22 14:51 Source: patient and family (spouse) Mode of arrival: ambulatory Limitations: no limitations History of Present Illness: This patient was referred to the emergency department from her primary care office. According to the spouse who accompanies her she has been sick for approximately 5 days with nausea vomiting and diarrhea with poor oral intake. He states that she is particularly gotten worse over the past 48 hours with inability to drink and eat much. Patient states she has urinated today. She complains of abdominal cramping as well. She has had subjective fevers no documented temperature. She is also had a nonproductive cough. She has a significant history of methamphetamine abuse, acute kidney injury requiring dialysis, labile hypertension and has required admission for control. No one else is ill at home currently. No recent travel noes recent antibiotic use. He has had a prior cholecystectomy. MD elicited complaint: nausea, vomiting and diarrhea Associated nausea: Yes Location of pain: Periumbilical Severity: mild Quality: cramping Associated symtoms: Reports fatigue and nausea; Denies anxiety, change in vision, chest pain, dysuria, headache(s) or palpitations Review of Systems Const: Reports: body aches and fatigue; Denies: fever(s) or chills Eyes: Denies: change in vision, blurry vision or blind spots ENMT: Denies: throat pain, odynophagia or nasal congestion Card: Denies: chest pain, palpitations or irregular heart rhythm Resp: Reports: non-productive cough; Denies: dyspnea, productive cough, wheezing or stridor GI: Reports: abdominal pain, nausea, vomiting and dysphagia; Denies: hematemesis, coffee ground emesis or hematochezia : Denies: flank pain, difficulty voiding or dysuria Musc: Denies: neck pain, back pain, extremity pain or extremity swelling Skin/Breast: Denies: rash Neuro: Denies: headache(s), numbness in extremities or weakness in extremities Psych: Denies: anxiety or depression Endo: Denies: polyuria or polydipsia PFSH ED PFSH: Medical History Acute kidney failure Cardiomyopathy EF- 48% with mod LVH, grade 1 diastolic dysfunction CHF (congestive heart failure), NYHA class III CKD (chronic kidney disease) Hypertension Ischemic bowel disease LVH (left ventricular hypertrophy) Methamphetamine abuse Pericardial effusion Resistant hypertension Substance abuse Surgical History S/P cholecystectomy Status post biopsy of kidney Status post insertion of hemodialysis catheter Family History Other CAD (coronary artery disease) Hypertension Social History Smoking and tobacco status: current every day smoker cigarettes Packs smoked per day: 0.5 Alcohol intake: never Other details last substance use: Reports of prior methamphetamine abuse per prior documentation. Juan zhang Household members: family and other Details: Lives with mother Housing: House Marital status: Single Current occupational status: unemployed Current gender identity: Female Female Reproductive History: Date of last menstrual period: 09/05/20 Physical Exam Narrative: EXAM NARRATIVE: She is awake and will respond to loud questioning but appears ill. Const: COMMON NORMALS: average body habitus and alert GENERAL APPEARANCE: ill appearing HENMT: COMMON NORMALS: normocephalic, atraumatic and Normal nasal mucous membranes and turbinates present HEAD & SCALP: normocephalic and atraumatic NOSE: Normal nasal mucous membranes and turbinates present MOUTH: other (Dry mucous membranes.) Eye: COMMON NORMALS: Equal, round and reactive pupils present, EOMs intact bilaterally, conjunctivae normal and no scleral icterus CONJUNCTIVA: Yes conjunctivae normal PUPIL: Yes Equal, round and reactive pupils present Neck/C-Spine: COMMON NORMALS: full ROM, supple, no meningeal signs, no JVD and No carotid bruits Chest: COMMONS NORMALS: normal inspection of the chest and normal palpation of entire chest wall Resp: COMMON NORMALS: normal respiratory effort, No retractions, No use of accessory muscles and clear to auscultation bilaterally AUSCULTATION: clear to auscultation bilaterally Cardio: COMMON NORMALS: no JVD, regular rate, regular rhythm, No murmurs present (Cardio) and Peripheral pulses 2+ throughout RATE: regular rate RHYTHM: regular rhythm PERIPHERAL PULSES: Peripheral pulses 2+ throughout GI: COMMON NORMALS: Soft to palpation and No hepatosplenomegaly present PALPATION: Yes Soft to palpation, Yes No hepatosplenomegaly present, No Hernia present and No Rebound tenderness present RECTAL EXAM: tenderness (Generalized) : COMMON NORMALS: Yes no CVA tenderness BLADDER/KIDNEY EXAM: Yes no CVA tenderness EXTERNAL FEMALE EXAM: No Hernia present Back/Pelvis: COMMON NORMALS: no CVA tenderness, thoracic and lumbar spine normal to inspection, no thoracic nor lumbar tenderness and thoraco-lumbar ROM normal Extremity: COMMON NORMALS: normal to inspection, capillary refill normal, no calf tenderness and no pedal edema Neuro: SENSORIUM/ORIENTATION: Yes alert MENINGEAL SIGNS: Yes no meningeal signs Skin: COMMON NORMALS: no rashes or lesions noted GENERAL SKIN EXAM: no rashes or lesions noted and turgor decreased Course ED course: On intake she appears ill and is noted to be hypertensive. We will go ahead and initiate work-up start IV fluids and then reassess blood pressure determine what we need to do to control her blood pressure. Reevaluation(s): Reevaluation #1: Patient's EKG represents what it is likely ventricular strain against significant hypertensive urgency. We are initiating nicardipine infusion at this time. Time: 15:33 Reevaluation #2: Pressure is coming down with nicardipine. She still remains sleepy but arousable. She adamantly denies any narcotic or opiate use however she will only stay alert and awake for short periods of time. She states she is very tired and has not been sleeping well for the last few days. She is nonfocal in her exam at this time. She is getting fluid replacement as well as potassium replacement IV due to her somnolence. We will go ahead and proceed with fluid resuscitation as well as plan on CT scan and as well as a dose of Narcan to ensure that there is no opiates on board. Time: 17:01 Reevaluation #3: The patient is miraculously wide-awake and much more alert at this time. She did not receive any Narcan but apparently the urge to urinate woke her up. Clinically she is improved. She does admit that she was taking some Aleve recently when I talked to her about her kidney function. She could possibly have a urinary tract infection as a source of her leukocytosis given that she has bacteria of significance with a cath specimen. We will give her a loading dose of antibiotics at this time. Blood pressure is now improved as well on nicardipine. We will go ahead and start giving her oral labetalol near her usual dose and see if we can get her off the nicardipine drip. Time: 17:50 Additional Reevaluation(s): She still remains on 2.5 mg of nicardipine. She is received 300 mg of her oral labetalol. I think she would benefit from prolonged hydration and blood pressure control and observation status and she agrees to that plan. CT scan results were noted and she has had a recent MRI back in December as well. Certainly no evidence of acute intracranial hemorrhage or other concerning is sues today. Consultations: Consultation #1: Discussed with attending hospitalist. We will go ahead and continue to wean her off her nicardipine if possible and plan for admission for continued hydration and correction of her potassium. She is receiving IV antibiotics as well. Time: 19:21 Vital Signs: Vital signs: Vital Signs Temperature 98 F 02/19/22 14:50 Pulse Rate 94 02/19/22 18:27 Respiratory Rate 29 H 02/19/22 18:27 Blood Pressure 192/105 02/19/22 18:27 Pulse Oximetry 98 02/19/22 18:27 MDM - Nausea/Vomiting/Diarrhea Medical Decision Making This patient with a longstanding history of labile hypertension, methamphetamine use as well as chronic kidney injury comes in with a approximate 5-day history of GI illness with nausea and vomiting and abdominal cramping. He has not been taking her usual medications. Her evaluation here was remarkable for hypokalemia, significant hypertension as well as volume depletion. She has responded well to nicardipine infusion as well as volume but will need continued volume rehydration as well as weaning her off her nicardipine drip and transitioning back to her oral medication for blood pressure control. Her other imaging studies were reassuring and it does not appear that she has any acute encephalopathy at this time. Medical Records I reviewed the patient's medical records. Lab Data : 02/19/22 15:18 02/19/22 15:[address] 02/19/22 17:01 IMPRESSION: 1. Diffuse nonspecific white matter abnormalities as described above which may represent demyelinating disorders, including multiple sclerosis. Follow-up assessment by contrast-enhanced MRI may also be considered. Neurologic consultation should also be considered. 2. No acute intracranial findings otherwise. 3. Sinus findings as above. Laboratory Results WBC 21.5 10^3/uL (4.0-10.0) H 02/19/22 15:18 RBC 3.64 10^6/uL (4.1-5.3) L 02/19/22 15:18 Hgb 11.1 g/dL (11.5-15.3) L 02/19/22 15:18 Hct 33.1 % (37.0-47.0) L 02/19/22 15:18 MCV 90.9 fl (81-99) 02/19/22 15:18 MCH 30.5 pg (28.0-34.0) 02/19/22 15:18 MCHC 33.5 g/dL (30.0-36.0) 02/19/22 15:18 RDW 16.3 % (12.1-15.1) H 02/19/22 15:18 Plt Count 188 10^3/cmm (130-400) 02/19/22 15:18 MPV 11.6 fL (7.4-10.4) H 02/19/22 15:18 Neut % (Auto) 88.9 % 02/19/22 15:18 Lymph % (Auto) 4.6 % 02/19/22 15:18 [place] % (Auto) 5.4 % 02/19/22 15:18 Eos % (Auto) 0.0 % 02/19/22 15:18 Baso % (Auto) 0.1 % 02/19/22 15:18 Neut # (Auto) 19.07 10^3/uL (1.8-7.7) H 02/19/22 15:18 Lymph # (Auto) 1.0 10^3/uL (0.8-4.8) 02/19/22 15:18 [place] # (Auto) 1.2 10^3/uL (0.2-0.9) H 02/19/22 15:18 Eos # (Auto) 0.0 10^3/uL (0.0-0.8) 02/19/22 15:18 Baso # (Auto) 0.0 10^3/uL (0.0-0.1) 02/19/22 15:18 Nucleated RBC % (auto) 0.1 % 02/19/22 15:18 Nucleated RBCs # 0.0 /100WBC 02/19/22 15:18 Sodium 135 mmol/L (136-145) L 02/19/22 15:18 Potassium 2.8 mmol/L (3.5-5.1) L* 02/19/22 15:18 Chloride 89 mmol/L (98-107) L 02/19/22 15:18 Carbon Dioxide 29 mmol/L (22-29) 02/19/22 15:18 Anion Gap 19.8 (5-19) H 02/19/22 15:18 BUN 70 mg/dL (6-20) H 02/19/22 15:18 Creatinine 4.4 mg/dL (0.5-0.9) H 02/19/22 15:18 GFR Calculation 11.7 mL/min (90-130) L 02/19/22 15:18 Glucose 156 mg/dL (65-115) H 02/19/22 15:18 Calculated Osmolality 304 mOsm/kg (285-295) H 02/19/22 15:18 Lactate 1.8 mmol/L (0.5-2.2) 02/19/22 15:34 Calcium 9.5 mg/dL (8.5-10.5) 02/19/22 15:18 Total Bilirubin 1.2 mg/dL (0.15-1.2) 02/19/22 15:18 AST 28 U/L (0-32) 02/19/22 15:18 ALT 15 U/L (0-33) 02/19/22 15:18 Alkaline Phosphatase 115 IU/L (35-105) H 02/19/22 15:18 Total Protein 6.5 g/dL (6.6-8.7) L 02/19/22 15:18 Albumin 3.4 g/dL (3.5-5.2) L 02/19/22 15:18 Globulin 3.1 g/dL (1.3-4.6) 02/19/22 15:18 Lipase 22 U/L (13-60) 02/19/22 15:18 HCG, Qual Negative (Negative) 02/19/22 17:07 Urine Color Yellow (Yellow) 02/19/22 17:07 Urine Appearance Cloudy (CLEAR) 02/19/22 17:07 Urine pH 6 (5-7) 02/19/22 17:07 Ur Specific [place] 1.015 (1.005-1.030) 02/19/22 17:07 Urine Protein 3+ (Negative) H 02/19/22 17:07 Urine Glucose (UA) Norm (Normal) 02/19/22 17:07 Urine Ketones Negative (Negative) 02/19/22 17:07 Urine Blood 2+ (Negative) H 02/19/22 17:07 Urine Nitrate Negative (Negative) 02/19/22 17:07 Urine Bilirubin Neg (Negative) 02/19/22 17:07 Urine Urobilinogen Norm mg/dL (Negative) 02/19/22 17:07 Ur Leukocyte Esterase Negative (Negative) 02/19/22 17:07 Urine RBC 0-4 /hpf (0-2) H 02/19/22 17:07 Urine WBC 5-10 /hpf (0-5) H 02/19/22 17:07 Ur Squamous Epith Cells 0-4 /hpf (0-5) H 02/19/22 17:07 Amorphous Sediment Not Reportable 02/19/22 17:07 Urine Bacteria 3+ /hpf (NONE) H 02/19/22 17:07 Urine Opiates Screen Negative ng/mL (Negative) 02/19/22 17:07 Ur Barbiturates Screen Negative ng/mL (Negative) 02/19/22 17:07 Ur Phencyclidine Scrn Negative ng/mL (Negative) 02/19/22 17:07 Ur Amphetamines Screen Positive ng/mL (Negative) H 02/19/22 17:07 U Benzodiazepines Scrn Negative ng/mL (Negative) 02/19/22 17:07 Urine Cocaine Screen Negative ng/mL (Negative) 02/19/22 17:07 U Marijuana (THC) Screen Negative ng/mL (Negative) 02/19/22 17:07 EKG Data EKG 1: I personally reviewed and interpreted this EKG as follows: EKG interpretation time: 15:45 Interpretation: EKG reveals a resting rate of 92 bpm. She has evidence of left atrial enlargement she has normal intervals normal axis. She has a normal QTc interval. He does have some nonspecific ST-T wave changes noted in the precordial leads. Some of these changes were present in prior EKGs available within our system. Discharge Plan Discharge Patient Disposition: Admitted As Inpatient Clinical Impression: CKD (chronic kidney disease), Labile hypertension, Volume depletion, Urinary tract infection, Acute hypokalemia Condition: Stable Prescriptions: No Action hydralazine 100 mg tablet 200 mg PO BID Qty: 336 1RF labetalol 300 mg tablet 300 mg PO BID Qty: 60 2RF Mavyret 100-40 mg tablet 3 tab PO DAILY 30 Days Qty: 84 2RF Rx Instructions: must administer with a meal/food docusate sodium 100 mg capsule 100 mg PO BID 0RF furosemide 40 mg Tablet 40 mg PO BID@08,16 Qty: 60 0RF nifedipine 90 mg tablet extended release 24hr 90 mg PO DAILY Qty: 30 0RF dicyclomine 10 mg capsule 10 mg PO TID PRN (Reason: Cramps) 0RF prednisone 10 mg tablet See Rx Instructions .ROUTE .COMPLEX 0RF Rx Instructions: 40mg po daily for 3 days 30mg po daily for 3 days 20mg po daily for 3 days 10mg po daily for 3 days 5mg po daily for 3 days nicotine 21 mg/24 hr Patch 24 Hour 1 patch TRANSDERMAL DAILY 0RF potassium gluconate 595 mg (99 mg) Tablet 595 mg PO . DIRECTED 0RF clonidine HCl 0.1 mg tablet See Rx Instructions .ROUTE .COMPLEX 0RF Rx Instructions: 2 tabs po tid prn may take 2 more tabs bid up to tid prn for sbp greater than 180 doxycycline hyclate 100 mg capsule 100 mg PO BID 0RF aspirin 325 mg Tablet 325 mg PO . DIRECTED 0RF metolazone 5 mg tablet 5 mg PO EVERY OTHER DAY 0RF Tylenol Ex Str Rapid Release 500 mg Tablet 500 - 1,000 mg PO Q6H PRN (Reason: Pain) 0RF isosorbide mononitrate 120 mg tablet extended release 24 hr 120 mg PO DAILY 0RF amlodipine 10 mg tablet 10 mg PO DAILY 0RF clonidine 0.3 mg/24 hr patch weekly 0.3 mg transdermal Q7D 0RF ibuprofen 100 mg Tablet,Chewable See Rx Instructions .ROUTE .COMPLEX 0RF Rx Instructions: prn melatonin 10 mg Tablet 10 mg PO BEDTIME PRN (Reason: Sleep) 0RF Referrals: Laurent Wolfe MD [Primary Care Provider] - Patient Instructions: Opioid Safety Coding Level of Care Code ED Kindergarten Instructional Assistant for g Fwd Exam Comprehensive
--- NOTE | 2022-02-19 15:16 | ECG_ITS ---
[facility] Test Date: 2022-02-19 Pat Name: Debo Little Department: Room: Gender: Female [employer]: : 1990 Requested By: Brenton Burns Order Number: [id number] Candida MD: Zion Houston M.D. Measurements Intervals [place] Rate: 92 P: 57 GA: 120 QRS: 56 QRSD: 109 T: -72 QT: 444 QTc: 551 Interpretive Statements SINUS RHYTHM LEFT ATRIAL ENLARGEMENT [-0.15mV P-WAVE IN V1/V2] POSSIBLE LEFT VENTRICULAR HYPERTROPHY [VOLTAGE CRITERIA PLUS LAE OR QRS WIDENING] ST DEVIATION AND MODERATE T-WAVE ABNORMALITY, CONSIDER INFERIOR ISCHEMIA [-0.1+ mV T-WAVE IN II/aVF] Compared to ECG 11/10/2021 02:55:05 Atrial abnormality now present T-wave abnormality still present Possible ischemia still present Electronically Signed On 02-19-2022 20:27:06 CDT by Zion Houston M.D. [id number]
[2022-02-19] MEDS: sodium chloride 0.9% 1,000 ML 999 ML IV (15:28)
[2022-02-19 15:29] LABS: Basophils % 0.1 %; Hematocrit 33.1 % (37.0-47.0); Hemoglobin 11.1 g/dL (11.5-15.3); Lymphocytes % 4.6 %; Mean Corpuscular HGB Conc 33.5 g/dL (30.0-36.0); Mean Corpuscular Hemoglobin 30.5 pg (28.0-34.0); Mean Corpuscular Volume 90.9 fl (81-99); Mean Platelet Volume 11.6 fL (7.4-10.4); Monocytes # 1.2 10^3/uL (0.2-0.9); Monocytes % 5.4 %; Neutrophils # 19.07 10^3/uL (1.8-7.7); Neutrophils % 88.9 %; Nucleated Red Blood Cells % 0.1 %; Platelet Count 188 10^3/cmm (130-400); Red Blood Count 3.64 10^6/uL (4.1-5.3); Red Cell Distribution Width 16.3 % (12.1-15.1); White Blood Count 21.5 10^3/uL (4.0-10.0)
[2022-02-19] MEDS: ondansetron 2 mg/ML SDV 2 mL 4 MG IVP (15:30)
[2022-02-19] MEDS: nicardipine 20 MG/200 ML PREMIX 50 MG IV ×2 (15:56→23:29)
[2022-02-19 16:11] LABS: Lactate (Lactic Acid level) 1.8 mmol/L (0.5-2.2)
[2022-02-19 16:13] LABS: Alanine Aminotransferase 15 U/L (0-33); Albumin Level 3.4 g/dL (3.5-5.2); Alkaline Phosphatase 115 IU/L (35-105); Anion Gap 19.8 (5-19); Aspartate Amino Transferase 28 U/L (0-32); Blood Urea Nitrogen 70 mg/dL (6-20); Calcium 9.5 mg/dL (8.5-10.5); Carbon Dioxide 29 mmol/L (22-29); Chloride 89 mmol/L (98-107); Globulin 3.1 g/dL (1.3-4.6); Glomerular Filtration Rate 11.7 mL/min (90-130); Glucose 156 mg/dL (65-115); Lipase 22 U/L (13-60); Osmolality Calculated 304 mOsm/kg (285-295); Sodium 135 mmol/L (136-145); Total Bilirubin 1.2 mg/dL (0.15-1.2); Total Protein 6.5 g/dL (6.6-8.7)
[2022-02-19 16:24] LABS: Potassium 2.8 mmol/L (3.5-5.1)
--- NOTE | 2022-02-19 16:37 | PC.PHAR ---
pt unable to verify medications-pt brought in some medication bottles-acyclovir 400mg five times a day filled 02/05/22 7d/s pt didnt bring in med bottle-notes are made in the pharmacy comments-meds entered are from the med bottles the pt brought in and from what ext med history shows was last filled-
--- NOTE | 2022-02-19 17:01 | CTR_ITS ---
PROCEDURE INFORMATION: Exam: CT Head Without Contrast Exam date and time: 02/19/2022 5:27 PM Age: 31 years old Clinical indication: Altered mental status/memory loss; Additional info: AMS TECHNIQUE: Imaging protocol: Computed tomography of the head without contrast. Radiation optimization: All CT scans at this facility use at least one of these dose optimization techniques: automated exposure control; mA and/or kV adjustment per patient size (includes targeted exams where dose is matched to clinical indication); or iterative reconstruction. COMPARISON: MR head wo con* [id number] 01/09/2022 2:06 PM RADIATION DOSE METRICS: Total DLP (mGy-cm): 636.3 FINDINGS: Brain: Mild hypodense changes are noted in the bilateral periventricular/subcortical cerebral and cerebella regions, likely related to nonspecific diffuse white matter disease. Chronic microvascular ischemic disease is unlikely given patient's age. Please refer to recent MRI report for better assessment of the white matter. There is no parenchymal atrophy. No acute intracranial hemorrhage, mass effect or midline shift. Cerebral ventricles: No pathologic ventricular dilatation. Paranasal sinuses: Mucosal thickening and fluid in the right maxillary sinus, probably new since prior exam. Mastoid air cells: Visualized mastoid air cells are well aerated. Bones/joints: Unremarkable. No acute fracture. Soft tissues: Unremarkable. CT/CT head wo con* [id number] IMPRESSION: 1. Diffuse nonspecific white matter abnormalities as described above which may represent demyelinating disorders, including multiple sclerosis. Follow-up assessment by contrast-enhanced MRI may also be considered. Neurologic consultation should also be considered. 2. No acute intracranial findings otherwise. 3. Sinus findings as above.
--- NOTE | 2022-02-19 17:30 | PC.NURSE ---
Pt became responsive to pain with a groaning sound. Pt did not wake up to answer questions. SpO2 was 86% on RA. NRB at 15L placed to raise O2 sat and then pt placed on 3L via NC and SpO2 at 94%. MD notified and orders received.
[2022-02-19 17:45] LABS: Amphetamines Screen Urine Positive (Negative); Barbiturates Screen Urine Negative (Negative); Benzodiazepines Screen Urine Negative (Negative); Cocaine Screen Urine Negative (Negative); Opiate Screen Urine Negative (Negative); PCP Screen Urine Negative (Negative); THC Screen Urine Negative (Negative)
[2022-02-19 17:46] LABS: Add Urine Culture? Yes; Add Urine Microscopic? YES; Bacteria Urine 3+ /hpf; Bilirubin Urine Neg (Negative); Blood Urine 2+ (Negative); Glucose Urine UA Norm (Normal); HCG Qualitative Urine. Negative (Negative); Ketones Urine Negative (Negative); Leukocyte Esterase Urine Negative (Negative); Nitrate Urine Negative (Negative); Protein Urine 3+ (Negative); RBC Urine 0-4 /hpf (0-2); Specific Gravity, Urine 1.015 (1.005-1.030); Squamous Epithelial Cell Urine 0-4 /hpf (0-5); Urine Appearance Cloudy (CLEAR); Urine Color Yellow (Yellow); Urobilinogen Urine Norm (Negative); pH Urine 6 (5-7)
[2022-02-19] MEDS: potassium chloride ER 20 mEq Tablet 40 MEQ PO (18:16)
[2022-02-19] MEDS: labetalol 200 mg Tablet 300 MG PO (18:17)
[2022-02-19] MEDS: lactated ringers 1,000 ML 999 ML IV (18:18)
[2022-02-19] MEDS: cefTRIAXone 2,000 MG in sodium chloride 0.9% (plus) 50 ML 100 MG IV (18:19)
--- NOTE | 2022-02-19 18:28 | PC.NURSE ---
Pt became alert and acting her normal. GCS of 16. Received orders from provider to withold Narcan and IV potassium. New orders received.
--- NOTE | 2022-02-19 19:19 | PM.HP ---
Providers/Chief Complaint Primary Care Provider: Laurent Wolfe MD Chief Complaint: dehydration, vomiting History of Present Illness Debo Little is a 31 year old female with history of substance abuse, systolic congestive heart failure, abnormal head MRI which revealed supratentorial infratentorial abnormal brain signal consistent with her methamphetamine abuse, press syndrome, patient also history of chronic kidney disease she has been on dialysis for about 7 months in the past, hepatitis C, labile blood pressure, has been recently treated for Henderson's palsy with acyclovir and prednisone resented today with chief complaint of recurrent nausea and vomiting. Patient is stating that her symptoms started few days ago with abdominal pain nausea and vomiting. She has not noticed any fever, chest pain or shortness of breath. She is very drowsy, because excessive dehydration she decided to come to the hospital for further evaluation. She was very drowsy in the ER however able to answer my questions appropriately Is able to tell me her name, date of and name of her mother. She is able to tell me that she lives with her mom and her children. She is denying use of methamphetamine Diagnostic work-up in the ER revealed severe leukocytosis, signs of dehydration, abnormal UA, drug screen positive for methamphetamine, hypertensive emergency, currently on Cardene drip at 2.5 which has been turned off at the time of my evaluation blood pressure 128/86mmhg. Briefly, she is not showing signs of acute strokelike features. No signs of meningitis. She has been treated for hypokalemia, will check magnesium level, check stool studies, Review of Systems Const: Reports: fatigue Eyes: Denies: change in vision ENMT: Denies: throat pain Card: Denies: chest pain Resp: Denies: dyspnea GI: Reports: abdominal pain, nausea and vomiting : Denies: flank pain Skin/Breast: Denies: rash Neuro: Denies: headache(s) Psych: Reports: mood swings and sleeping more Endo: Denies: polyuria Bhavin/Lymph: Denies: easy bruising All/Imm: Denies: urticaria Medications/Allergies Home Medications Medication Instructions Recorded Confirmed Last Taken Type dicyclomine 10 mg capsule 10 mg PO TID PRN 05/08/21 02/19/22 05/08/21 History labetalol 300 mg tablet 300 mg PO BID #60 tab 10/08/21 02/19/22 01/08/22 Rx docusate sodium 100 mg capsule 100 mg PO BID 11/10/21 02/19/22 01/08/22 History furosemide 40 mg tablet 40 mg PO BID@08,16 #60 tab 11/13/21 02/19/22 01/08/22 Rx nifedipine 90 mg tablet,extended 90 mg PO DAILY #30 tab 11/13/21 02/19/22 01/08/22 Rx release 24 hr hydralazine 100 mg tablet 200 mg PO BID #336 tab 12/21/21 02/19/22 01/08/22 Rx glecaprevir 100 mg-pibrentasvir 40 3 tab PO DAILY 30 Days #84 tab 12/30/21 02/19/22 Unknown Rx mg tablet (Mavyret) acetaminophen 500 mg tablet 500 - 1,000 mg PO Q6H PRN 02/19/22 02/19/22 Unknown History amlodipine 10 mg tablet 10 mg PO DAILY 02/19/22 02/19/22 Unknown History aspirin 325 mg tablet 325 mg PO . DIRECTED 02/19/22 02/19/22 Unknown History clonidine 0.3 mg/24 hr weekly 0.3 mg TRANSDERMAL Q7D 02/19/22 02/19/22 Unknown History transdermal patch clonidine HCl 0.1 mg tablet See Rx Instructions .ROUTE .COMPLEX 02/19/22 02/19/22 Unknown History doxycycline hyclate 100 mg capsule 100 mg PO BID 02/19/22 02/19/22 Unknown History ibuprofen 100 mg chewable tablet See Rx Instructions .ROUTE .COMPLEX 02/19/22 02/19/22 Unknown History isosorbide mononitrate 120 mg 120 mg PO DAILY 02/19/22 02/19/22 Unknown History tablet,extended release 24 hr melatonin 10 mg tablet 10 mg PO BEDTIME PRN 02/19/22 02/19/22 Unknown History metolazone 5 mg tablet 5 mg PO EVERY OTHER DAY 02/19/22 02/19/22 Unknown History nicotine 21 mg/24 hr daily 1 patch TRANSDERMAL DAILY 02/19/22 02/19/22 Unknown History transdermal patch potassium gluconate 595 mg (99 mg) 595 mg PO . DIRECTED 02/19/22 02/19/22 Unknown History tablet prednisone 10 mg tablet See Rx Instructions .ROUTE .COMPLEX 02/19/22 02/19/22 Unknown History Allergies Allergy/AdvReac Type Severity Reaction Status Date / Time No Known Allergies Allergy Verified 02/02/22 13:54 PFSH Acute PFSH: Medical History Acute kidney failure Cardiomyopathy EF- 48% with mod LVH, grade 1 diastolic dysfunction CHF (congestive heart failure), NYHA class III CKD (chronic kidney disease) HCV (hepatitis C virus) on Hypertension Ischemic bowel disease LVH (left ventricular hypertrophy) Methamphetamine abuse Methamphetamine abuse Pericardial effusion Posterior reversible encephalopathy syndrome Resistant hypertension Substance abuse White matter disease Surgical History S/P cholecystectomy Status post biopsy of kidney Status post insertion of hemodialysis catheter Family History Other CAD (coronary artery disease) Hypertension Social History Smoking and tobacco status: current every day smoker cigarettes Packs smoked per day: 0.5 Alcohol intake: never Other details last substance use: Reports of prior methamphetamine abuse per prior documentation. Juan holcomb Household members: family and other Details: Lives with mother Housing: House Marital status: Single Current occupational status: unemployed Current gender identity: Female Female Reproductive History: Date of last menstrual period: 09/05/20 Vitals/I&O/Wt Last Vital Signs Temp 98 F 02/19/22 14:50 Pulse 94 02/19/22 18:27 Resp 29 H 02/19/22 18:27 BP 192/105 02/19/22 18:27 Pulse Ox 98 02/19/22 18:27 02/19/22 02/19/22 02/19/22 06:59 14:59 22:59 Intake Total 1088.750 / 1088.750 Balance 1088.750 / 1088.750 Weight last 48 hrs Weight 68.039 kg Physical Exam Narrative: Patient is very drowsy however able to answer my questions appropriately She is able to tell me her name, name of her mother, she is not disoriented Very fatigued and lethargic No signs of meningitis S1, S2 sinus tachycardia Abdomen soft Dehydrated Multiple bruises all over her body is No signs of guarding or rigidity of abdominal muscles No audible stridor or wheezing I do not appreciate any acute strokelike features Blood pressure 128/66 mmHg Data : 02/19/22 15:18 02/19/22 15:18 A&P Assessment and plan (1) Hypertensive emergency: Status: Acute (2) Volume depletion: Status: Acute (3) Urinary tract infection: Status: Acute (4) Acute hypokalemia: Status: Acute Plan Hypertensive emergency Signs of dehydration with severe leukocytosis, patient is afebrile Recurrent nausea and vomiting, check stool studies, nausea vomiting likely related to polysubstance abuse Abnormal UA noted She is denying symptoms of UTI For now I would keep her on IV fluids and ceftriaxone Check stool studies In case of recurrent nausea and vomiting request CT abdomen pelvis in the morning, she does have history of ischemic bowel symptoms in the past, no clinical signs of ischemic bowel, lactic acid is normal Cardene drip has been turned off, would continue clonidine patch along with p.o. antibiotics regimen MRI head reviewed, she does have features of press syndrome I would not like to decrease her blood pressure aggressively, target blood pressure range 1 30-1 40 millimeters Hg, systolic Dehydration related tachycardia: Improving with IV fluids Check urine culture Methamphetamine positive drug tox screen, no signs of serotonin syndrome Full code Full liquid diet DVT prophylaxis on board Severe leukocytosis most likely is due to steroid use which she was given for Henderson's Millie She also has history of hepatitis C continue hepatitis C treatment she follows up with Dr. Howe Hypokalemia: Repleted check magnesium level, Attestations Medical Necessity Statement*: Anticipating discharge within 48 hours will need treatment and management for hypertensive emergency IV fluid for dehydration Time Spent in Patient Care: 40mins Coding Level of Care Code Acute Bacteriologist [employer] for [facility] Diagnoses Hypertensive emergency I16.1 Volume depletion E86.9 Urinary tract infection N39.0 Acute hypokalemia E87.6
[2022-02-19] MEDS: cloNIDine 0.3 mg/24 hr Patch 1 PATCH TRANSDERMA (19:32)
[2022-02-19 19:59] LABS: Procalcitonin 0.35 ng/mL (0-0.5)
[2022-02-19] MEDS: lidocaine 1% 5 ML in potassium chloride premix 100 ML 25 ML IV (21:26)
[2022-02-19] MEDS: sodium chloride 0.9% 1,000 ML 75 ML IV (21:26)
[2022-02-19] MEDS: heparin 5,000 unit/mL INJ 1 mL 5000 UNIT SUBCUT (21:26)
--- NOTE | 2022-02-19 21:43 | PC.NURSE ---
Unable to complete admission assessment. Patient is drowsy. Patient arouses to touch, but quick falls back asleep Physician aware.
[2022-02-20] VITALS (40 sets, daily range): BP systolic 126–183; BP diastolic 58–114; PULSE 64–89; RESP 14–32; TEMP 36.5; O2SAT 90–100
[2022-02-20] MEDS: nicardipine 20 MG/200 ML PREMIX 50 MG IV ×2 (03:33→08:20)
--- NOTE | 2022-02-20 04:33 | PC.NURSE ---
Patient is more alert this morning. Patient is currently talking on the phone with her mother. Patient able to go to [facility] with one assist. Patient able to answer admission questions.
[2022-02-20 04:58] LABS: Basophils % 0.2 %; Hematocrit 29.1 % (37.0-47.0); Hemoglobin 9.2 g/dL (11.5-15.3); Mean Corpuscular HGB Conc 31.6 g/dL (30.0-36.0); Mean Corpuscular Hemoglobin 30.4 pg (28.0-34.0); Mean Platelet Volume 11.5 fL (7.4-10.4); Monocytes % 6.6 %; Neutrophils # 12.35 10^3/uL (1.8-7.7); Neutrophils % 85.5 %; Nucleated Red Blood Cells % 0.1 %; Platelet Count 151 10^3/cmm (130-400); Red Blood Count 3.03 10^6/uL (4.1-5.3); Red Cell Distribution Width 16.4 % (12.1-15.1); White Blood Count 14.5 10^3/uL (4.0-10.0)
[2022-02-20 05:29] LABS: Blood Urea Nitrogen 69 mg/dL (6-20); Calcium 8.6 mg/dL (8.5-10.5); Carbon Dioxide 27 mmol/L (22-29); Chloride 95 mmol/L (98-107); Glucose 132 mg/dL (65-115); Magnesium 2.1 mg/dL (1.7-2.3); Osmolality Calculated 302 mOsm/kg (285-295); Sodium 135 mmol/L (136-145)
[2022-02-20] MEDS: cefTRIAXone 1,000 MG in sodium chloride 0.9% (plus) 50 ML 100 MG IV (08:19)
[2022-02-20] MEDS: aspirin 325 mg Tablet PO (08:21)
[2022-02-20] MEDS: amlodipine 10 mg Tablet PO (08:21)
[2022-02-20] MEDS: isosorbide mononitrate ER 60 mg Tablet 120 MG PO (08:21)
[2022-02-20] MEDS: sennosides-docusate Tablet 1 TAB PO (08:21)
[2022-02-20] MEDS: hyDRALAzine 50 mg Tablet 200 MG PO ×2 (08:21→17:56)
[2022-02-20] MEDS: labetalol 200 mg Tablet 300 MG PO ×2 (08:21→17:57)
[2022-02-20] MEDS: NIFEdipine ER (24 hr) 30 mg Tablet 90 MG PO (08:22)
[2022-02-20] MEDS: docusate sodium 100 mg Capsule PO ×2 (08:22→17:57)
[2022-02-20] MEDS: heparin 5,000 unit/mL INJ 1 mL 5000 UNIT SUBCUT ×2 (08:23→20:51)
[2022-02-20] MEDS: nicotine 21 mg Patch 1 PATCH TRANSDERMA (08:23)
[2022-02-20 09:31] LABS: Glucose Point of Care 150 mg/dL (70-110)
[2022-02-20] MEDS: sodium chloride 0.9% 1,000 ML 75 ML IV ×2 (11:30→20:52)
--- NOTE | 2022-02-20 11:40 | P.PN_ITS ---
Subjective Subjective: 31-year-old female admitted for hypertensive emergency, dehydration, complicated UTI, acute hypokalemia. She reports feeling some better today. She has had no further nausea and vomiting. She reports that she is still using amphetamines. Denies any other problems with stooling or voiding. States that she has not had a bowel movement since admission. Vitals/I&O/Wt Last Vital Signs Temp 98.3 F 02/19/22 21:15 Pulse 77 02/20/22 09:16 Resp 16 02/20/22 09:16 BP 176/84 02/20/22 05:00 Pulse Ox 97 02/20/22 09:16 02/19/22 02/20/22 02/20/22 22:59 06:59 14:59 Intake Total 2250.000 / 2250.000 905 / 3155.000 716.667 / 716.667 Balance 2250.000 / 2250.000 905 / 3155.000 716.667 / 716.667 Weight last 48 hrs Weight 161 lb 12.8 oz Weight 150 lb Physical Exam Narrative: General: Cooperative patient in no apparent distress. Well developed. HEENT: Normocephalic, Atraumatic. PERRLA, left eye with abnormal extraocular movements. L sided facial weakness noted. External ears normal. Nasal p assages patent without drainage. MMM. Resp: Lungs clear to auscultation, no wheezes, rales or rhonchi. No respiratory distress, no use of accessory muscles. Heart: Regular rate and rhythm. There is a 2-3/6 systolic murmur heard best at the left sternal border. No other rubs or gallops. Abd: Soft, nontender, non-distended. Extremities: No edema. Skin: No rash or lesions on exposed areas. Data : 02/20/22 04:40 02/20/22 04:40 A&P Assessment and plan (1) Hypertensive emergency: Status: Acute (2) Volume depletion: Status: Acute (3) Urinary tract infection: Status: Acute (4) Acute hypokalemia: Status: Acute (5) Methamphetamine abuse: Status: Chronic (6) Hepatitis C: Status: Acute Qualifiers: Viral hepatitis chronicity: chronic Hepatic coma status: without hepatic coma Qualified Code(s): B18.2 - Chronic viral hepatitis C Plan 31-year-old female admitted for hypertensive emergency, dehydration, urinary tract infection, hypokalemia. Blood pressures have improved. Heart rate is now stable. She is still on a Nicardipine drip per protocol. We will continue titration goal of maintaining systolic pressures in the 130's-140's. Once blood pressure stablilizes, we will transition back to oral medication, and clonidine patch. White blood cell count has improved. Continue Rocephin. We will send urine for culture. Has not had stool sample collected, has not had a bowel movement. Will hold on this for now. Can reconsider if patient begins to have symptoms again. Nausea/vomiting likely related to urinary tract infection/pyelonephritis. Can advance diet as patient tolerates. Magnesium was 2.1, within normal range. Potassium remains low. Is up from 2.8- 3.0. We will continue to replace and recheck in the a.m. Continue NS at this time. Discussed at length the risks associated with continued methamphetamine use. Patient verbalizes understanding. Continue hepatitis C treatment. IVF: NS @ 75 DVT PPx: Heparin GI PPx: None O2: 2L Diet: ADAT. Attestations Medical Necessity Statement*: Patient being treated for hypertensive emergency, UTI, dehydration. Anticipate discharge within 48 hours after admission. Time Spent in Patient Care: 40mins Coding Level of Care Code Acute [employer] [facility] Diagnoses Hypertensive emergency I16.1 Volume depletion E86.9 Urinary tract infection N39.0 Acute hypokalemia E87.6 Methamphetamine abuse F15.10 Hepatitis C B18.2 Viral hepatitis chronicity: chronic Hepatic coma status: without hepatic coma
[2022-02-20] MEDS: potassium chloride ER 20 mEq Tablet 40 MEQ PO (12:56)
--- NOTE | 2022-02-20 15:01 | PC.NURSE ---
bp 137/70.cardene drip at [address] rain notified[address]he ordered to turn cardene drip off ,and restart if sbp >160.
--- NOTE | 2022-02-20 22:33 | PC.NURSE ---
Patient asking for something for heartburn/indigestion. Dr. Ferrera notified. GI cocktail ordered.
[2022-02-20] MEDS: lidocaine 2% viscous 15 ML, aluminum-mag hydrox-simethicon 30 ML, sucralfate oral liq 1 GM PO (23:19)
[2022-02-21] VITALS (12 sets, daily range): BP systolic 124–185; BP diastolic 56–99; PULSE 66–87; RESP 13–22; TEMP 36.3–37.2; O2SAT 94–97
[2022-02-21] MEDS: cefTRIAXone 1,000 MG in sodium chloride 0.9% (plus) 50 ML 100 MG IV (08:49)
[2022-02-21] MEDS: amlodipine 10 mg Tablet PO (08:50)
[2022-02-21] MEDS: NIFEdipine ER (24 hr) 30 mg Tablet 90 MG PO (08:50)
[2022-02-21] MEDS: sennosides-docusate Tablet 1 TAB PO (08:50)
[2022-02-21] MEDS: isosorbide mononitrate ER 60 mg Tablet 120 MG PO (08:50)
[2022-02-21] MEDS: hyDRALAzine 50 mg Tablet 200 MG PO ×2 (08:52→17:24)
[2022-02-21] MEDS: potassium chloride ER 20 mEq Tablet 40 MEQ PO (08:53)
[2022-02-21] MEDS: docusate sodium 100 mg Capsule PO ×2 (08:53→17:25)
[2022-02-21] MEDS: labetalol 200 mg Tablet 300 MG PO ×2 (08:53→17:25)
[2022-02-21] MEDS: nicotine 21 mg Patch 1 PATCH TRANSDERMA (08:54)
[2022-02-21] MEDS: heparin 5,000 unit/mL INJ 1 mL 5000 UNIT SUBCUT ×2 (08:54→20:54)
[2022-02-21] MEDS: aspirin 325 mg Tablet PO (08:54)
--- NOTE | 2022-02-21 11:59 | P.PN_ITS ---
Subjective Subjective: Reports feeling better today. Appetite has improved. Has not had bowel movement yet. Feels that urinary symptoms have also improved and she voiding without difficulty. Denies fevers or pain today. No other concerns. Medications: Reviewed: Yes Vitals/I&O/Wt Last Vital Signs Temp 97.4 F L 02/21/22 11:52 Pulse 72 02/21/22 11:52 Resp 18 02/21/22 11:52 BP 159/75 02/21/22 11:52 Pulse Ox 96 02/21/22 11:52 02/20/22 02/21/22 02/21/22 22:59 06:59 14:59 Intake Total 1035.833 / 3112.500 170 / 170 Output Total 300 / 300 Balance 1035.833 / 3112.500 -300 / 2812.500 170 / 170 Weight last 48 hrs Weight 161 lb 12.8 oz Weight 150 lb Physical Exam Narrative: General: Cooperative patient in no apparent distress. Well developed. HEENT: Normocephalic, Atraumatic. PERRLA, left eye with abnormal extraocular movements. L sided facial weakness noted. External ears normal. Nasal passages patent without drainage. MMM. Resp: Lungs clear to auscultation, no wheezes, rales or rhonchi. No respiratory distress, no use of accessory muscles. Heart: Regular rate and rhythm. There is a 2-3/6 systolic murmur heard best at the left sternal border. No other rubs or gallops. Abd: Soft, nontender, non-distended. Extremities: No edema. Skin: No rash or lesions on exposed areas. Data : 02/20/22 04:40 02/20/22 04:40 Micro: Microbiology 02/19/22 17:07 Urine Culture - Preliminary Urine,Clean Catch Gram Negative Rods A&P Assessment and plan (1) Hypertensive emergency: Status: Acute (2) Urinary tract infection: Status: Acute (3) Acute hypokalemia: Status: Acute (4) Pyelonephritis: Status: Acute (5) HCV (hepatitis C virus): Status: Acute Plan 31-year-old female admitted for hypertensive emergency, dehydration, urinary tract infection, hypokalemia. BP stable. Currently off drip and transitioned to home meds. PRN available if elevations continue. ? Continue Rocephin for UTI Rx. Cultures show GNR. Susceptibilities pending. C an de-escalate as indicated. Nausea/vomiting likely related to urinary tract infection/pyelonephritis.?No further episodes noted. Continue potassium replacement. Will recheck today. Continued discussion regarding risks of MAmp use. Maintain Hep C treatment while inpatient. IVF: NS @ 75ml/hr GI PPx: DVT PPx: Attestations Medical Necessity Statement*: Patient being treated for hypertensive emergency, UTI, dehydration. Anticipate discharge within 48 hours after admission. Time Spent in Patient Care: 40mins Coding Level of Care Code Acute [employer] [facility] for [facility] Diagnoses Hypertensive emergency I16.1 Urinary tract infection N39.0 Acute hypokalemia E87.6 Pyelonephritis N12 HCV (hepatitis C virus) B19.20
[2022-02-21 12:47] LABS: Basophils % 0.3 %; Eosinophils # 0.1 10^3/uL (0.0-0.8); Eosinophils % 1.3 %; Hematocrit 24.6 % (37.0-47.0); Hemoglobin 7.7 g/dL (11.5-15.3); Lymphocytes # 1.1 10^3/uL (0.8-4.8); Lymphocytes % 10.8 %; Mean Corpuscular HGB Conc 31.3 g/dL (30.0-36.0); Mean Corpuscular Hemoglobin 30.7 pg (28.0-34.0); Mean Platelet Volume 11.5 fL (7.4-10.4); Monocytes # 0.8 10^3/uL (0.2-0.9); Monocytes % 7.8 %; Neutrophils # 8.26 10^3/uL (1.8-7.7); Neutrophils % 78.8 %; Nucleated Red Blood Cells % 0 %; Platelet Count 172 10^3/cmm (130-400); Red Blood Count 2.51 10^6/uL (4.1-5.3); Red Cell Distribution Width 16.9 % (12.1-15.1); White Blood Count 10.5 10^3/uL (4.0-10.0)
[2022-02-21] MEDS: sodium chloride 0.9% 1,000 ML 75 ML IV (17:26)
[2022-02-22] VITALS (8 sets, daily range): BP systolic 128–179; BP diastolic 58–100; PULSE 68–77; RESP 17–21; TEMP 36.3–36.7; O2SAT 94–96
[2022-02-22 06:09] LABS: Alanine Aminotransferase 11 U/L (0-33); Albumin Level 2.9 g/dL (3.5-5.2); Alkaline Phosphatase 83 IU/L (35-105); Anion Gap 16.8 (5-19); Aspartate Amino Transferase 21 U/L (0-32); Blood Urea Nitrogen 58 mg/dL (6-20); Calcium 8.4 mg/dL (8.5-10.5); Carbon Dioxide 24 mmol/L (22-29); Chloride 95 mmol/L (98-107); Globulin 3.3 g/dL (1.3-4.6); Glomerular Filtration Rate 14.3 mL/min (90-130); Glucose 125 mg/dL (65-115); Osmolality Calculated 294 mOsm/kg (285-295); Sodium 133 mmol/L (136-145); Total Bilirubin 0.2 mg/dL (0.15-1.2); Total Protein 6.2 g/dL (6.6-8.7)
[2022-02-22 06:42] LABS: Potassium 2.8 mmol/L (3.5-5.1)
[2022-02-22] MEDS: nicotine 21 mg Patch 1 PATCH TRANSDERMA (08:18)
[2022-02-22] MEDS: hyDRALAzine 50 mg Tablet 200 MG PO (08:18)
[2022-02-22] MEDS: lidocaine 1% 5 ML in potassium chloride premix 100 ML 50 ML IV (08:18)
[2022-02-22] MEDS: docusate sodium 100 mg Capsule PO (08:19)
[2022-02-22] MEDS: NIFEdipine ER (24 hr) 30 mg Tablet 90 MG PO (08:19)
[2022-02-22] MEDS: labetalol 200 mg Tablet 300 MG PO (08:19)
[2022-02-22] MEDS: amlodipine 10 mg Tablet PO (08:19)
[2022-02-22] MEDS: sennosides-docusate Tablet 1 TAB PO (08:19)
[2022-02-22] MEDS: potassium chloride ER 20 mEq Tablet 40 MEQ PO (08:20)
[2022-02-22] MEDS: isosorbide mononitrate ER 60 mg Tablet 120 MG PO (08:20)
[2022-02-22 08:41] LABS: Ferritin 334 ng/mL (15-150); Iron 54 ug/dL (37-145); Total Iron Binding Capacity 234 mcg/dl; Unsaturated Iron Binding 180 ug/dL (112-347)
[2022-02-22] MEDS: aspirin 325 mg Tablet PO (09:19)
[2022-02-22] MEDS: cefTRIAXone 1,000 MG in sodium chloride 0.9% (plus) 50 ML 100 MG IV (09:19)
--- NOTE | 2022-02-22 10:49 | PC.NURSE ---
noted pt has a left facial droop. pt stated she has a hx of facial palsy and numbness on left face area. it comes and goes pt stated. pt had head ct during this admission.
--- NOTE | 2022-02-22 11:40 | PM.DCS ---
Discharge Providers Date of Admission: 02/20/22 17:05 Date of Discharge: February 22, 2022 Attending Provider at Admission: Lalitha Ferrera MD Attending Provider at Discharge: Ernestine Nobles MD Primary Care Provider: Laurent Wolfe MD Diagnoses at Discharge Discharge Diagnosis (1) Hypertensive emergency: Status: Acute (2) Urinary tract infection: Status: Acute (3) Acute hypokalemia: Status: Acute (4) Pyelonephritis: Status: Acute (5) HCV (hepatitis C virus): Status: Acute Permanent problem details: on Reason for Visit Reason for Visit: dehydration, vomiting Brief History: Debo Little is a 31 year old female with history of substance abuse, systolic congestive heart failure, abnormal head MRI which revealed supratentorial infratentorial abnormal brain signal consistent with her methamphetamine abuse, press syndrome, patient also history of chronic kidney disease she has been on dialysis for about 7 months in the past, hepatitis C, labile blood pressure, has been recently treated for Henderson's palsy with acyclovir and prednisone resented today with chief complaint of recurrent nausea and vomiting. Patient is stating that her symptoms started few days ago with abdominal pain nausea and vomiting.? She has not noticed any fever, chest pain or shortness of breath.? She is very drowsy, because excessive dehydration she decided to come to the hospital for further evaluation.? She was very drowsy in the ER however able to answer my questions appropriately Is able to tell me her name, date of and name of her mother.? She is able to tell me that she lives with her mom and her children.? She is denying use of methamphetamine Diagnostic work-up in the ER revealed severe leukocytosis, signs of dehydration, abnormal UA, drug screen positive for methamphetamine, hypertensive emergency, currently on Cardene drip at 2.5 which has been turned off at the time of my evaluation blood pressure 128/86mmhg.? Briefly, she is not showing signs of acute strokelike features.? No signs of meningitis. She has been treated for hypokalemia, will check magnesium level, check stool studies, Hospital Course Hospital Course 31-year-old with history of methamphetamine use, hepatitis C, CKD, heart murmur was admitted for hypertensive emergency and a UTI. She was treated with IV ceftriaxone which was transitioned to cefdinir at discharge. She did require nicardipine drip during hospital stay which was later on stopped. Her home antihypertensives were gradually added including a clonidine patch. Blood pressures have improved. She is feeling better. Urine culture grew gram-negative rods which was sensitive to ceftriaxone. Patient is getting treatment for hepatitis C as an outpatient and this was continued throughout her hospital stay. On day of discharge her hemoglobin was 7.7. Admission hemoglobin was 11. Patient did get IV fluids during hospital stay. She was initially dehydrated when she came in. Anemia can be dilutional as well. Patient does state that she has a history of hemorrhoids and does have bloody stool when she exerts herself too much when having a bowel movement. She says that she struggles with constipation. Stool softeners were added for her and she was given a dose of lactulose. Patient requested to go home. FOBT was ordered as well but patient did not want to wait for that. She stated she would like to have that work-up as an outpatient. She will see her primary care for that. She also states that she has longstanding iron deficiency anemia and every time she takes iron she gets further constipated. She denies any abdominal pain or blood in stool at other occasions when she is not constipated. Patient did get a prescription for CBC repeat in a couple of days as well. Patient blood pressure has been normal in the last 48 hours. She will be discharged home. After patient was given her discharge paperwork blood pressure was checked 1 last time and it was 179/100. Patient was advised to take her as needed clonidine and RN offered to give her a tablet but patient was in a hurry and she left. Patient does have a clonidine 0.3 transdermal patch weekly and she also has clonidine 0.1 mg tablet that she can take on a as needed basis if systolic blood pressure greater than 180. Patient did take all her morning meds today. After patient left RN called me and told me about this last blood pressure incident but patient was gone by then. Physical Exam Narrative: General: Cooperative patient in no apparent distress.? Well developed. HEENT:? Normocephalic, Atraumatic. Resp: Lungs clear to auscultation, no wheezes, rales or rhonchi.?. Heart: Regular rate and rhythm.? normal s1, s2? Abd: Soft, nontender, non-distended. Extremities:? No edema. Skin:? No rash or lesions on exposed areas. Discharge Data Studies Completed and Pending Completed Studies During Hospitalization Category Date Time Status CT head wo con* [id number] Urgent Cat Scan 02/19/22 17:01 Completed Pending at discharge Category Date Time Status Occult Blood Stool [Immunochemical Fecal OCB] Stat Lab 02/22/22 08:03 Uncollected Radiology Impressions Head CT 02/19/22 17:01 IMPRESSION: 1. Diffuse nonspecific white matter abnormalities as described above which may represent demyelinating disorders, including multiple sclerosis. Follow-up assessment by contrast-enhanced MRI may also be considered. Neurologic consultation should also be considered. 2. No acute intracranial findings otherwise. 3. Sinus findings as above. Laboratory Results WBC 10.5 10^3/uL (4.0-10.0) H 02/21/22 12:21 RBC 2.51 10^6/uL (4.1-5.3) L 02/21/22 12:21 Hgb 7.7 g/dL (11.5-15.3) L 02/21/22 12:21 Hct 24.6 % (37.0-47.0) L 02/21/22 12:21 MCV 98.0 fl (81-99) 02/21/22 12:21 MCH 30.7 pg (28.0-34.0) 02/21/22 12:21 MCHC 31.3 g/dL (30.0-36.0) 02/21/22 12:21 RDW 16.9 % (12.1-15.1) H 02/21/22 12:21 Plt Count 172 10^3/cmm (130-400) 02/21/22 12:21 MPV 11.5 fL (7.4-10.4) H 02/21/22 12:21 Neut % (Auto) 78.8 % 02/21/22 12:21 Lymph % (Auto) 10.8 % 02/21/22 12:21 [place] % (Auto) 7.8 % 02/21/22 12:21 Eos % (Auto) 1.3 % 02/21/22 12:21 Baso % (Auto) 0.3 % 02/21/22 12:21 Neut # (Auto) 8.26 10^3/uL (1.8-7.7) H 02/21/22 12:21 Lymph # (Auto) 1.1 10^3/uL (0.8-4.8) 02/21/22 12:21 [place] # (Auto) 0.8 10^3/uL (0.2-0.9) 02/21/22 12:21 Eos # (Auto) 0.1 10^3/uL (0.0-0.8) 02/21/22 12:21 Baso # (Auto) 0.0 10^3/uL (0.0-0.1) 02/21/22 12:21 Nucleated RBC % (auto) 0 % 02/21/22 12:21 Nucleated RBCs # 0.0 /100WBC 02/21/22 12:21 Sodium 133 mmol/L (136-145) L 02/22/22 04:38 Potassium 2.8 mmol/L (3.5-5.1) L* 02/22/22 04:38 Chloride 95 mmol/L (98-107) L 02/22/22 04:38 Carbon Dioxide 24 mmol/L (22-29) 02/22/22 04:38 Anion Gap 16.8 (5-19) 02/22/22 04:38 BUN 58 mg/dL (6-20) H 02/22/22 04:38 Creatinine 3.7 mg/dL (0.5-0.9) H 02/22/22 04:38 GFR Calculation 14.3 mL/min (90-130) L 02/22/22 04:38 Glucose 125 mg/dL (65-115) H 02/22/22 04:38 POC Glucose 150 mg/dL (70-110) H 02/19/22 15:17 Calculated Osmolality 294 mOsm/kg (285-295) 02/22/22 04:38 Lactate 1.8 mmol/L (0.5-2.2) 02/19/22 15:34 Calcium 8.4 mg/dL (8.5-10.5) L 02/22/22 04:38 Magnesium 2.1 mg/dL (1.7-2.3) 02/20/22 04:40 Iron 54 ug/dL (37-145) 02/22/22 04:38 TIBC 234 mcg/dl 02/22/22 04:38 % Saturation 23.0 % (20-50) 02/22/22 04:38 Unsat Iron Binding 180 ug/dL (112-347) 02/22/22 04:38 Ferritin 334 ng/mL (15-150) H 02/22/22 04:38 Total Bilirubin 0.2 mg/dL (0.15-1.2) 02/22/22 04:38 AST 21 U/L (0-32) 02/22/22 04:38 ALT 11 U/L (0-33) 02/22/22 04:38 Alkaline Phosphatase 83 IU/L (35-105) 02/22/22 04:38 Total Protein 6.2 g/dL (6.6-8.7) L 02/22/22 04:38 Albumin 2.9 g/dL (3.5-5.2) L 02/22/22 04:38 Globulin 3.3 g/dL (1.3-4.6) 02/22/22 04:38 Lipase 22 U/L (13-60) 02/19/22 15:18 Procalcitonin 0.35 ng/mL (0-0.5) 02/19/22 15:18 HCG, Qual Negative (Negative) 02/19/22 17:07 Urine Color Yellow (Yellow) 02/19/22 17:07 Urine Appearance Cloudy (CLEAR) 02/19/22 17:07 Urine pH 6 (5-7) 02/19/22 17:07 Ur Specific [place] 1.015 (1.005-1.030) 02/19/22 17:07 Urine Protein 3+ (Negative) H 02/19/22 17:07 Urine Glucose (UA) Norm (Normal) 02/19/22 17:07 Urine Ketones Negative (Negative) 02/19/22 17:07 Urine Blood 2+ (Negative) H 02/19/22 17:07 Urine Nitrate Negative (Negative) 02/19/22 17:07 Urine Bilirubin Neg (Negative) 02/19/22 17:07 Urine Urobilinogen Norm mg/dL (Negative) 02/19/22 17:07 Ur Leukocyte Esterase Negative (Negative) 02/19/22 17:07 Urine RBC 0-4 /hpf (0-2) H 02/19/22 17:07 Urine WBC 5-10 /hpf (0-5) H 02/19/22 17:07 Ur Squamous Epith Cells 0-4 /hpf (0-5) H 02/19/22 17:07 Amorphous Sediment Not Reportable 02/19/22 17:07 Urine Bacteria 3+ /hpf (NONE) H 02/19/22 17:07 Urine Opiates Screen Negative ng/mL (Negative) 02/19/22 17:07 Ur Barbiturates Screen Negative ng/mL (Negative) 02/19/22 17:07 Ur Phencyclidine Scrn Negative ng/mL (Negative) 02/19/22 17:07 Ur Amphetamines Screen Positive ng/mL (Negative) H 02/19/22 17:07 U Benzodiazepines Scrn Negative ng/mL (Negative) 02/19/22 17:07 Urine Cocaine Screen Negative ng/mL (Negative) 02/19/22 17:07 U Marijuana (THC) Screen Negative ng/mL (Negative) 02/19/22 17:07 Vitals Last Vital Signs Temp 97.4 F L 02/22/22 07:27 Pulse 76 02/22/22 07:39 Resp 17 02/22/22 07:39 BP 176/100 02/22/22 07:27 Pulse Ox 96 02/22/22 07:39 Discharge Plan Discharge Patient Disposition: Home Condition: Stable Prescriptions: New cefdinir 300 mg capsule 300 mg PO BID 7 Days Qty: 14 0RF Continued hydralazine 100 mg tablet 200 mg PO BID Qty: 336 1RF labetalol 300 mg tablet 300 mg PO BID Qty: 60 2RF Mavyret 100-40 mg tablet 3 tab PO DAILY 30 Days Qty: 84 2RF Rx Instructions: must administer with a meal/food docusate sodium 100 mg capsule 100 mg PO BID 0RF furosemide 40 mg Tablet 40 mg PO BID@08,16 Qty: 60 0RF nifedipine 90 mg tablet extended release 24hr 90 mg PO DAILY Qty: 30 0RF dicyclomine 10 mg capsule 10 mg PO TID PRN (Reason: Cramps) 0RF nicotine 21 mg/24 hr Patch 24 Hour 1 patch TRANSDERMAL DAILY 0RF potassium gluconate 595 mg (99 mg) Tablet 595 mg PO . DIRECTED 0RF clonidine HCl 0.1 mg tablet See Rx Instructions .ROUTE .COMPLEX 0RF Rx Instructions: 2 tabs po tid prn may take 2 more tabs bid up to tid prn for sbp greater than 180 doxycycline hyclate 100 mg capsule 100 mg PO BID 0RF aspirin 325 mg Tablet 325 mg PO . DIRECTED 0RF metolazone 5 mg tablet 5 mg PO EVERY OTHER DAY 0RF acetaminophen 500 mg Tablet 500 - 1,000 mg PO Q6H PRN (Reason: Pain) 0RF isosorbide mononitrate 120 mg tablet extended release 24 hr 120 mg PO DAILY 0RF amlodipine 10 mg tablet 10 mg PO DAILY 0RF clonidine 0.3 mg/24 hr patch weekly 0.3 mg transdermal Q7D 0RF ibuprofen 100 mg Tablet,Chewable See Rx Instructions .ROUTE .COMPLEX 0RF Rx Instructions: prn melatonin 10 mg Tablet 10 mg PO BEDTIME PRN (Reason: Sleep) 0RF Discontinued prednisone 10 mg tablet See Rx Instructions .ROUTE .COMPLEX 0RF Rx Instructions: 40mg po daily for 3 days 30mg po daily for 3 days 20mg po daily for 3 days 10mg po daily for 3 days 5mg po daily for 3 days Discharge Orders: Discharge Order (Routine); Ordered 02/22/22 Ordered By: Ernestine Nobles Other Ambulatory Orders: Basic Metabolic Panel (Routine) Timeframe: 3 Days Facility: [facility] - Location: Lab - Main Lab Ordered By: Ernestine Nobles Complete Blood Count w/Auto (Routine) Timeframe: 3 Days Location: Determined by Patient Ordered By: Ernestine Nobles Immunochemical Fecal OCB (Routine) Timeframe: 1 Day Facility: [facility] - Location: Lab - Main Lab Ordered By: Ernestine Nobles Referrals: Laurent Wolfe MD [Primary Care Provider] - 4-7 days (Please follow-up with Dr. Wolfe on Tuesday, March 01 at 9:15A.M. If you have any questions or need to reschedule. Please call ) Discharge Diet: Cardiac and Low Salt Discharge Activity: Resume usual activity Patient Instructions: Cefdinir (By mouth) (Omnicef), Hepatitis C, Urinary Tract Infection in Women (DC), Hypokalemia (DC), Hypertensive Crisis (DC), CHF Stoplight, Opioid Safety Activity Restrictions/Additional Instructions: Please return to ER if you experience dizziness, shortness of breath, chest pain, lightheadedness, blood in stool. Please follow up with your primary care doctor as soon as possible. Please ensure you complete your antibiotic course. Discharge Attestations Time Spent in Discharge Care*: less than 30 min Status at Discharge: Cognitive status at discharge: cognitively intact, Behavioral status at discharge: cooperative, Quality Metrics Clinical Quality Measures [ No reported AMI, CVA or VTE this stay] Coding Level of Care Code Acute Chg FW DC note Diagnoses Hypertensive emergency I16.1 Urinary tract infection N39.0 Acute hypokalemia E87.6 Pyelonephritis N12 HCV (hepatitis C virus) B19.20
--- NOTE | 2022-02-22 12:27 | PC.NURSE ---
Discharge instructions Pt BP is 170/90 when re-checked manually. Significant other is concerned about her BP but pt stated, Don't keep asking questions because i want to go home now. Discuss to pt to keep a log of her BP and the importance of taking her home meds and to take her Clonidine as ordered PRN when her BP goes above 180 mmhg per Rx bottle and as continued meds on discharge order. Educated on her outpatient labs and appointment to pcp. Pt stated she sees a emergency room physician assistant on the . Hospitalist is made aware of her home med clonidine and her statement that she sees a emergency room physician assistant. Pt left with her significant other.
== END 2022-02-22 12:30 | disposition home or self-care (01) | DRG 689 ==
LOC: ER 19:29 → CSU 20:35
PROVIDERS: Family Medicine; Admitting Provider Internal Medicine; Emergency Provider Emergency Medicine; PCP Family Medicine; Visit Provider Internal Medicine
DX: N39.0 Urinary tract infection, site not specified (principal); I67.83 Posterior reversible encephalopathy syndrome; I16.1 Hypertensive emergency; I13.0 Hypertensive heart and chronic kidney disease with heart failure and stage 1 through stage 4 chronic kidney disease, or unspecified chronic kidney disease; I50.22 Chronic systolic (congestive) heart failure; I42.9 Cardiomyopathy, unspecified; F15.10 Other stimulant abuse, uncomplicated; N18.9 Chronic kidney disease, unspecified; F17.210 Nicotine dependence, cigarettes, uncomplicated; E87.6 Hypokalemia; B18.2 Chronic viral hepatitis C; E86.0 Dehydration; K59.00 Constipation, unspecified; D63.1 Anemia in chronic kidney disease
CPT/HCPCS: 36415; 36416; 51701; 70450; 80048; 80053; 80306; 81001; 81025; 82728; 82962; 83540; 83550; 83605; 83690; 83735; 84145; 85025; 87077; 87086; 87186; 93005; 96365; 96366; 96367; 96372; 96375; 99285; G0378; J0696; J1644; J2405; J3480; J7030

== ENCOUNTER 2023-06-22 21:48 | Emergency (ER) | payer MEDICARE, MEDICAID, SELFPAY ==
[2023-06-22 21:55] VITALS: BP 245/133; PULSE 106; RESP 16; TEMP 36.6; O2SAT 100; BMI 32.9
--- NOTE | 2023-06-22 22:18 | ED_ITS ---
HPI - Eye Problem General: Chief complaint: Eye Problems Stated complaint: Left Eye Infection Time Seen by Provider: 06/22/23 22:04 History of Present Illness: Patient reports left eye swelling and styes in the eye for the last 2 days. Patient reports trying to squeeze the styes to release the contents as well as using a warm compress on the but they just keep getting worse. Patient is a dialysis patient does hemodialysis 3 times a week. Patient's been using cephalexin she has had at home for the last 2 days with minimal improvement. Patient has no known allergies. Review of Systems General: Reports: 10 or more systems reviewed and unremarkable except in HPI and below PFSH ED PFSH: Medical History Acute kidney failure Cardiomyopathy EF- 48% with mod LVH, grade 1 diastolic dysfunction CHF (congestive heart failure), NYHA class III CKD (chronic kidney disease) HCV (hepatitis C virus) on Hypertension Ischemic bowel disease LVH (left ventricular hypertrophy) Methamphetamine abuse Methamphetamine abuse Pericardial effusion Posterior reversible encephalopathy syndrome Resistant hypertension Substance abuse White matter disease Surgical History S/P cholecystectomy Status post biopsy of kidney Status post insertion of hemodialysis catheter Family History Other CAD (coronary artery disease) Hypertension Social History Smoking and tobacco status: current every day smoker cigarettes Packs smoked per day: 0.5 Alcohol intake: never Substance/Drug Use: former Date of last use: Quit using last year Other details last substance use: Reports of prior methamphetamine abuse per prior documentation. Juan holcomb Household members: family and other Details: Lives with mother Housing: House Marital status: Single Current occupational status: unemployed Current gender identity: Female Physical Exam Const: COMMON NORMALS: no acute distress, average body habitus, patient oriented x3, no limitations, healthy appearing, alert and well nourished HENMT: COMMON NORMALS: normocephalic, atraumatic, hearing grossly normal bilaterally, external ears normal, Normal external nose present and moist oral mucous membranes HEAD & SCALP: normocephalic and atraumatic NOSE: Normal external nose present EXTERNAL EAR: Yes external ears normal Eye: OTHER: Left eye periorbital eyelid region red irritated cellulitic looking very swollen to stye looking lesions noted. Globe is normal. Neck/C-Spine: COMMON NORMALS: full ROM, no lymphadenopathy, supple, no meni ngeal signs, no JVD and Thyroid normal THYROID: Thyroid normal Lymph: LYMPHATIC: no lymphadenopathy noted Chest: COMMONS NORMALS: normal inspection of the chest and normal palpation of entire chest wall Resp: COMMON NORMALS: normal respiratory effort, No retractions, No use of accessory muscles and clear to auscultation bilaterally AUSCULTATION: clear to auscultation bilaterally Cardio: COMMON NORMALS: no JVD, regular rate, regular rhythm, S1 normal heart sound present, S2 normal heart sound present, No gallops present (Cardio), No clicks present (Cardio), No murmurs present (Cardio) and No rub (Cardio) RATE: regular rate RHYTHM: regular rhythm HEART SOUNDS: S1 normal heart sound present and S2 normal heart sound present GI: COMMON NORMALS: Normal to inspection, nondistended, normoactive bowel sounds present, Soft to palpation, non-tender, No hepatosplenomegaly present, no masses and no bruits PALPATION: Yes Soft to palpation and Yes No hepatosplenomegaly present Neuro: COMMON NORMALS: patient oriented x3 SENSORIUM/ORIENTATION: Yes alert MENINGEAL SIGNS: Yes no meningeal signs Course Vital Signs: Vital signs: Vital Signs Temperature 97.9 F 06/22/23 21:55 Pulse Rate 106 H 06/22/23 21:55 Respiratory Rate 16 06/22/23 21:55 Blood Pressure 245/133 06/22/23 21:55 Pulse Oximetry 100 06/22/23 21:55 MDM - Eye Problem Medical Decision Making Patient presents with left infected stye in periorbital region. Patient's failed 2 days of outpatient cephalexin she had lying around her house. Patient will be placed on Bactrim DS to take 1 p.o. twice daily and on dialysis days to take it after dialysis. Patient should follow-up with her PCP and/or election judge in the next 7 days or sooner as needed. Differential Diagnosis Likely periorbital cellulitis; Unlikely corneal abrasion, conjunctivitis, acute iritis, hyphema, subconjunctival hemorrhage, glaucoma, corneal ulcer or ruptured globe Medical Records I reviewed the patient's medical records. Lab Data I reviewed the patient's lab results. Discharge Plan Discharge Patient Disposition: Home Clinical Impression: Hordeolum externum left lower eyelid, Periorbital cellulitis of left eye Condition: Stable Prescriptions: New sulfamethoxazole-trimethoprim [Bactrim DS] 800-160 mg tablet 1 tab PO BID 7 Days Qty: 14 0RF No Action hydralazine 100 mg tablet 200 mg PO BID Qty: 336 1RF labetalol 300 mg tablet 300 mg PO BID Qty: 60 2RF Mavyret 100-40 mg tablet 3 tab PO DAILY 30 Days Qty: 84 2RF Rx Instructions: must administer with a meal/food docusate sodium 100 mg capsule 100 mg PO BID furosemide 40 mg Tablet 40 mg PO BID@08,16 Qty: 60 0RF nifedipine 90 mg tablet extended release 24hr 90 mg PO DAILY Qty: 30 0RF dicyclomine 10 mg capsule 10 mg PO TID PRN (Reason: Cramps) nicotine 21 mg/24 hr Patch 24 Hour 1 patch TRANSDERMAL DAILY potassium gluconate 595 mg (99 mg) Tablet 595 mg PO . DIRECTED clonidine HCl 0.1 mg tablet See Rx Instructions .ROUTE .COMPLEX Rx Instructions: 2 tabs po tid prn may take 2 more tabs bid up to tid prn for sbp greater than 180 doxycycline hyclate 100 mg capsule 100 mg PO BID aspirin 325 mg Tablet 325 mg PO . DIRECTED metolazone 5 mg tablet 5 mg PO EVERY OTHER DAY acetaminophen 500 mg Tablet 500 - 1,000 mg PO Q6H PRN (Reason: Pain) isosorbide mononitrate 120 mg tablet extended release 24 hr 120 mg PO DAILY amlodipine 10 mg tablet 10 mg PO DAILY clonidine 0.3 mg/24 hr patch weekly 0.3 mg transdermal Q7D ibuprofen 100 mg Tablet,Chewable See Rx Instructions .ROUTE .COMPLEX Rx Instructions: prn melatonin 10 mg Tablet 10 mg PO BEDTIME PRN (Reason: Sleep) Discharge Orders: Discharge ED (Routine); Ordered 06/22/23 Ordered By: Mario Walsh Referrals: Laurent Wolfe MD [Primary Care Provider] - 1 week Patient Instructions: Periorbital Cellulitis (ED), Stye (Hordeolum) Activity Restrictions/Additional Instructions: Please take all your antibiotics as directed. On dialysis days these make sure you take at least 1 dose after dialysis. Please follow-up with your election judge and/or your family practice physician within the next 7 days or sooner as needed. If this worsens please return to the ER for further evaluation. Coding Level of Care Code ED Supervisor Accounts Receivable for Guillermo Puente
[2023-06-22 22:22] VITALS: BP 238/120
[2023-06-22] MEDS: cloNIDine 0.1 mg Tablet 0.2 MG PO (22:22)
[2023-06-22] MEDS: sulfamethoxazole-trimeth DS 160-800 mg Tablet 1 TAB PO (22:22)
== END 2023-06-22 22:31 | disposition home or self-care (01) ==
PROVIDERS: Emergency Provider Emergency Medicine; PCP Family Medicine
DX: H00.015 Hordeolum externum left lower eyelid (principal); L03.213 Periorbital cellulitis; F17.210 Nicotine dependence, cigarettes, uncomplicated; I13.0 Hypertensive heart and chronic kidney disease with heart failure and stage 1 through stage 4 chronic kidney disease, or unspecified chronic kidney disease; N18.9 Chronic kidney disease, unspecified; I50.9 Heart failure, unspecified; Z86.19 Personal history of other infectious and parasitic diseases
CPT/HCPCS: 99283

== ENCOUNTER 2023-11-12 18:34 | Emergency (ER) | payer MEDICARE, MEDICAID, SELFPAY ==
[2023-11-12 18:41] VITALS: BP 156/74; PULSE 106; RESP 20; TEMP 38.6; O2SAT 96; BMI 34.7
--- NOTE | 2023-11-12 19:06 | XRR_ITS ---
PROCEDURE INFORMATION: Exam: XR Chest Exam date and time: 11/12/2023 7:14 PM Age: 33 years old Clinical indication: Prior surgery; Surgery date: 6+ months; Surgery type: RT dialysis cath insertion/removal; Patient HX: Fever; Tachycardia; Weakness; PT had dialysis tx today TECHNIQUE: Imaging protocol: Radiologic exam of the chest. Views: 1 view. COMPARISON: CR XR chest 1V portable [id number] 01/09/2022 10:52 AM FINDINGS: Lungs: Atelectatic changes versus scarring in the left lung base laterally. No focal consolidation. Pleural spaces: Unremarkable. No pleural effusion. No pneumothorax. Heart/Mediastinum: Unremarkable. No cardiomegaly. Bones/joints: Unremarkable. XR/XR chest 1V portable [id number] IMPRESSION: No focal consolidation.
[2023-11-12 19:08] VITALS: BP 154/68; PULSE 103; RESP 20; O2SAT 94
[2023-11-12 19:47] LABS: Basophils # 0.1 10^3/uL (0.0-0.1); Basophils % 0.3 %; Eosinophils % 0.2 %; Hematocrit 28.8 % (36-47); Lymphocytes # 0.8 10^3/uL (0.8-4.8); Lymphocytes % 4.9 %; Mean Corpuscular Hemoglobin 32.3 pg (27-33); Mean Platelet Volume 10.7 fL (7.4-10.4); Monocytes # 1.9 10^3/uL (0.2-0.9); Monocytes % 12.2 %; Neutrophils # 12.58 10^3/uL (1.8-7.7); Neutrophils % 81.9 %; Nucleated Red Blood Cells % 0 %; Platelet Count 207 10^3/cmm (157-399); Red Blood Count 2.94 10^6/uL (3.85-5.65); Red Cell Distribution Width 12.8 % (12.1-15.1); White Blood Count 15.37 10^3/uL (3.29-11.43)
--- NOTE | 2023-11-12 19:55 | ED_ITS ---
HPI - Fever 2 General: Chief Complaint: Fever Stated Complaint: FEVER; WEAKNESS Time Seen by Provider: 11/12/23 19:06 History of Present Illness: Patient presents to the ER with complaints of feeling bad overall. Feeling heavy in her bones and having a fever. Patient did go to dialysis today and finished it but when she took a nap afterwards she woke up feeling horrible. Patient has no cough congestion shortness of breath chest pain nausea vomiting diarrhea has been around no sick contacts. No localizing symptoms. Review of Systems 2 General: Reports: 10 or more systems reviewed and unremarkable except in HPI and below PFSH ED 2 PFSH: Medical History Methamphetamine abuse Posterior reversible encephalopathy syndrome White matter disease HCV (hepatitis C virus) on Acute kidney failure Ischemic bowel disease CHF (congestive heart failure), NYHA class III Resistant hypertension Pericardial effusion CKD (chronic kidney disease) Cardiomyopathy EF- 48% with mod LVH, grade 1 diastolic dysfunction Hypertension LVH (left ventricular hypertrophy) Methamphetamine abuse Substance abuse Surgical History Status post biopsy of kidney Status post insertion of hemodialysis catheter S/P cholecystectomy Family History Other CAD (coronary artery disease) Hypertension Social History Smoking and tobacco/nicotine status: current every day tobacco/nicotine user cigarettes Packs smoked per day: 0.5 Alcohol intake: never Substance/Drug Use: former Date of last use: Quit using last year Household members: family and other Details: Lives with mother Housing: House Marital status: Single Current occupational status: unemployed Current gender identity: Female Physical Exam 2 Const: COMMON NORMALS: no acute distress, average body habitus, patient oriented x3, no limitations, healthy appearing, alert and well nourished HENMT: COMMON NORMALS: normocephalic, atraumatic, hearing grossly normal bilaterally, external ears normal, Normal external nose present, moist oral mucous membranes and oropharynx normal HEAD & SCALP: normocephalic and atraumatic NOSE: Normal external nose present EXTERNAL EAR: Yes external ears normal Neck/C-Spine: COMMON NORMALS: full ROM, no lymphadenopathy, supple, no meningeal signs, no JVD and Thyroid normal THYROID: Thyroid normal Chest: COMMONS NORMALS: normal inspection of the chest and normal palpation of entire chest wall Resp: COMMON NORMALS: normal respiratory effort, No retractions, No use of accessory muscles and clear to auscultation bilaterally AUSCULTATION: clear to auscultation bilaterally Cardio: COMMON NORMALS: no JVD, regular rhythm, S1 normal heart sound present, S2 normal heart sound present, No gallops present (Cardio), No clicks present (Cardio), No murmurs present (Cardio) and No rub (Cardio); negative for regular rate (Tachycardic) RATE: abnormal rate (Tachycardic) RHYTHM: regular rhythm HEART SOUNDS: S1 normal heart sound present and S2 normal heart sound present GI: COMMON NORMALS: Normal to inspection, nondistended, normoactive bowel sounds present, Soft to palpation, non-tender, No hepatosplenomegaly present and no masses PALPATION: Yes Soft to palpation and Yes No hepatosplenomegaly present Neuro: COMMON NORMALS: patient oriented x3 SENSORIUM/ORIENTATION: Yes alert MENINGEAL SIGNS: Yes no meningeal signs Course 2 Vital Signs: Vital signs: Vital Signs Temperature 101.4 F H 11/12/23 18:41 Pulse Rate 88 11/12/23 21:29 Respiratory Rate 18 11/12/23 21:29 Blood Pressure 169/83 11/12/23 21:29 Pulse Oximetry 98 11/12/23 21:29 Oxygen Delivery Me thod Room Air 11/12/23 18:41 MDM - Fever Medical Decision Making Lab work including blood cultures, influenza and COVID swab was obtained. Patient was given 1 g of IV Tylenol. Patient's fever broke patient felt much better patient states she wants to go home does not want a wait for any more testing. Patient was informed of blood cultures we will get the results of for 2 or 3 days when they call her if we need to change anything. Patient is okay with this. Patient be discharged home. Differential Diagnosis Unlikely abdominal pain, acute appendicitis, calculus of kidney, constipation, diverticulitis, endometriosis, gastroenteritis, pancreatitis or small bowel obstruction Medical Records I reviewed the patient's medical records. Lab Data I reviewed the patient's lab results. 11/12/23 19:25 11/12/23 19:25 Radiology Impressions Chest X-Ray 11/12/23 19:06 IMPRESSION: No focal consolidation. Laboratory Results WBC 15.37 10^3/uL (3.29-11.43) H 11/12/23 19:25 RBC 2.94 10^6/uL (3.85-5.65) L 11/12/23 19:25 Hgb 9.50 g/dL (11.27-16.99) L 11/12/23 19:25 Hct 28.8 % (36-47) L 11/12/23 19:25 MCV 98.0 fl (85-98) 11/12/23 19:25 MCH 32.3 pg (27-33) 11/12/23 19: MCHC 33.0 g/dL (30-55) 11/12/23 19: RDW 12.8 % (12.1-15.1) 11/12/23 19: Plt Count 207 10^3/cmm (157-399) 11/12/23 19: MPV 10.7 fL (7.4-10.4) H 11/12/23 19:25 Neut % (Auto) 81.9 % 11/12/23 19:25 Lymph % (Auto) 4.9 % 11/12/23 19:25 [place] % (Auto) 12.2 % 11/12/23 19:25 Eos % (Auto) 0.2 % 11/12/23 19:25 Baso % (Auto) 0.3 % 11/12/23 19: Neut # (Auto) 12.58 10^3/uL (1.8-7.7) H 11/12/23 19:25 Lymph # (Auto) 0.8 10^3/uL (0.8-4.8) 11/12/23 19:25 [place] # (Auto) 1.9 10^3/uL (0.2-0.9) H 11/12/23 19:25 Eos # (Auto) 0.0 10^3/uL (0.0-0.8) 11/12/23 19: Baso # (Auto) 0.1 10^3/uL (0.0-0.1) 11/12/23 19: Nucleated RBC % (auto) 0 % 11/12/23 19: Nucleated RBCs # 0.0 /100WBC 11/12/23 19:25 Sodium 133 mmol/L (136-145) L 11/12/23 19:25 Potassium 4.5 mmol/L (3.5-5.1) 11/12/23 19:25 Chloride 87 mmol/L (98-107) L 11/12/23 19:25 Carbon Dioxide 34 mmol/L (22-29) H 11/12/23 19:25 Anion Gap 16.5 (5-19) 11/12/23 19:25 BUN 28 mg/dL (6-20) H 11/12/23 19:25 Creatinine 5.2 mg/dL (0.5-0.9) H 11/12/23 19:25 GFR Calculation 9.5 mL/min (90-130) L 11/12/23 19:25 Glucose 112 mg/dL (65-115) 11/12/23 19:25 Calculated Osmolality 282 mOsm/kg (285-295) L 11/12/23 19:25 Lactic Acid 1.8 mmol/L (0.5-2.2) 11/12/23 19:25 Calcium 9.3 mg/dL (8.5-10.5) 11/12/23 19:25 Total Bilirubin 0.3 mg/dL (0.15-1.2) 11/12/23 19:25 AST 79 U/L (0-32) H 11/12/23 19:25 ALT 16 U/L (0-33) 11/12/23 19:25 Alkaline Phosphatase 95 U/L (35-105) 11/12/23 19:25 Total Protein 7.5 g/dL (6.6-8.7) 11/12/23 19:25 Albumin 3.9 g/dL (3.5-5.2) 11/12/23 19:25 Globulin 3.6 g/dL (1.3-4.6) 11/12/23 19:25 Procalcitonin 3.96 ng/mL (0-0.5) H 11/12/23 19:25 Influenza Type A Ag negative (Negative) 11/12/23 19:30 Influenza Type B Ag negative (Negative) 11/12/23 19:30 SARS-CoV-2 Ag (Rapid) negative (Negative) 11/12/23 19:30 All radiology interpretation(s) finalized by discharge Discharge Plan Discharge Patient Disposition: Home Clinical Impression: ESRD on dialysis Fever Qualifiers: Fever type: unspecified Qualified Code(s): R50.9 - Fever, unspecified Condition: Stable Prescriptions: No Action hydralazine 100 mg tablet 200 mg PO BID Qty: 336 1RF labetalol 300 mg tablet 300 mg PO BID Qty: 60 2RF Mavyret 100-40 mg tablet 3 tab PO DAILY 30 Days Qty: 84 2RF Rx Instructions: must administer with a meal/food docusate sodium 100 mg capsule 100 mg PO BID furosemide 40 mg Tablet 40 mg PO BID@08,16 Qty: 60 0RF nifedipine 90 mg tablet extended release 24hr 90 mg PO DAILY Qty: 30 0RF dicyclomine 10 mg capsule 10 mg PO TID PRN (Reason: Cramps) nicotine 21 mg/24 hr Patch 24 Hour 1 patch TRANSDERMAL DAILY potassium gluconate 595 mg (99 mg) Tablet 595 mg PO . DIRECTED clonidine HCl 0.1 mg tablet See Rx Instructions .ROUTE .COMPLEX Rx Instructions: 2 tabs po tid prn may take 2 more tabs bid up to tid prn for sbp greater than 180 doxycycline hyclate 100 mg capsule 100 mg PO BID aspirin 325 mg Tablet 325 mg PO . DIRECTED metolazone 5 mg tablet 5 mg PO EVERY OTHER DAY acetaminophen 500 mg Tablet 500 - 1,000 mg PO Q6H PRN (Reason: Pain) isosorbide mononitrate 120 mg tablet extended release 24 hr 120 mg PO DAILY amlodipine 10 mg tablet 10 mg PO DAILY clonidine 0.3 mg/24 hr patch weekly 0.3 mg transdermal Q7D ibuprofen 100 mg Tablet,Chewable See Rx Instructions .ROUTE .COMPLEX Rx Instructions: prn melatonin 10 mg Tablet 10 mg PO BEDTIME PRN (Reason: Sleep) Discharge Orders: Discharge ED (Routine); Ordered 11/12/23 Ordered By: Mario Walsh Referrals: Laurent Wolfe MD [Primary Care Provider] - 1 week Patient Instructions: Fever in Adults (ED) Activity Restrictions/Additional Instructions: Please continue use Tylenol as directed for fever control. Please follow-up with your family practice physician within 7 days for further evaluation and testing. If your symptoms worsen please return to the ER. Coding Level of Care Code ED Link Trainer Maintenance Man for Guillermo Puente
[2023-11-12 19:58] LABS: Influenza A by IFA negative (Negative); Influenza B by IFA negative (Negative)
[2023-11-12 19:59] LABS: SARS Covid-2 Antigen negative (Negative)
[2023-11-12 20:01] LABS: Lactic Sepsis W/Reflex 1.8 mmol/L (0.5-2.2)
[2023-11-12] MEDS: acetaminophen 1,000 MG/100 ML PIGGYBACK 400 MG IV (20:01)
[2023-11-12 20:02] LABS: Alanine Aminotransferase 16 U/L (0-33); Albumin Level 3.9 g/dL (3.5-5.2); Alkaline Phosphatase 95 U/L (35-105); Blood Urea Nitrogen 28 mg/dL (6-20); Calcium 9.3 mg/dL (8.5-10.5); Carbon Dioxide 34 mmol/L (22-29); Chloride 87 mmol/L (98-107); Globulin 3.6 g/dL (1.3-4.6); Glomerular Filtration Rate 9.5 mL/min (90-130); Glucose 112 mg/dL (65-115); Osmolality Calculated 282 mOsm/kg (285-295); Sodium 133 mmol/L (136-145); Total Bilirubin 0.3 mg/dL (0.15-1.2); Total Protein 7.5 g/dL (6.6-8.7)
[2023-11-12 20:03] LABS: Anion Gap 16.5 (5-19); Aspartate Amino Transferase 79 U/L (0-32); Potassium 4.5 mmol/L (3.5-5.1)
[2023-11-12 20:09] LABS: Procalcitonin 3.96 ng/mL (0-0.5)
[2023-11-12 21:29] VITALS: BP 169/83; PULSE 88; RESP 18; O2SAT 98
== END 2023-11-12 21:29 | disposition home or self-care (01) ==
PROVIDERS: Emergency Provider Emergency Medicine; PCP Family Medicine
DX: R50.9 Fever, unspecified (principal); I13.2 Hypertensive heart and chronic kidney disease with heart failure and with stage 5 chronic kidney disease, or end stage renal disease; N18.6 End stage renal disease; I50.9 Heart failure, unspecified; Z99.2 Dependence on renal dialysis; Z86.19 Personal history of other infectious and parasitic diseases; I43 Cardiomyopathy in diseases classified elsewhere; F17.210 Nicotine dependence, cigarettes, uncomplicated; Z79.82 Long term (current) use of aspirin; Z11.52 Encounter for screening for COVID-19
CPT/HCPCS: 36415; 71045; 80053; 83605; 84145; 85025; 87040; 87426; 87804; 96365; 99284; J0131

== ENCOUNTER 2024-05-05 11:35 | Inpatient (IN) | payer MEDICARE, MEDICAID, SELFPAY ==
[2024-05-05] VITALS (23 sets, daily range): BP systolic 104–178; BP diastolic 42–88; PULSE 91–132; RESP 16–25; TEMP 37.6–38.4; O2SAT 89–98; BMI 36.6; BMI 39.0
--- NOTE | 2024-05-05 12:05 | CTR_ITS ---
PROCEDURE INFORMATION: Exam: CT Abdomen And Pelvis With Contrast Exam date and time: 05/05/2024 1:28 PM Age: 33 years old Clinical indication: Abdominal pain; Generalized; Prior surgery; Surgery date: 6+ months; Surgery type: Gb; Additional info: Abd pain TECHNIQUE: Imaging protocol: Computed tomography of the abdomen and pelvis with contrast. Radiation optimization: All CT scans at this facility use at least one of these dose optimization techniques: automated exposure control; mA and/or kV adjustment per patient size (includes targeted exams where dose is matched to clinical indication); or iterative reconstruction. Contrast material: OMNI 350; Contrast volume: 100 ml; Contrast route: INTRAVENOUS (IV); COMPARISON: [place] [id number] 11/09/2021 2:40 PM RADIATION DOSE METRICS: Total DLP (mGy-cm): 840.2 FINDINGS: Lungs: Lung bases are clear. No pleural effusion. Heart: Mild cardiomegaly is noted. Liver: Normal. No mass. Gallbladder and biliary ducts: The gallbladder has been resected. Pancreas: Normal. No ductal dilation. Spleen: Normal. No splenomegaly. Adrenal glands: Normal. No mass. Kidneys and ureters: Normal. No hydronephrosis. Stomach and bowel: There are multiple loops of minimally distended, fluid-filled small bowel and liquid stool is noted throughout the colon. Appendix: No evidence of appendicitis. Intraperitoneal space: Unremarkable. No free air. No significant fluid collection. Vasculature: Unremarkable. No abdominal aortic aneurysm. Lymph nodes: Unremarkable. No enlarged lymph nodes. Urinary bladder: Unremarkable as visualized. Reproductive: Unremarkable as visualized. Bones/joints: Unremarkable. No acute fracture. Soft tissues: Unremarkable. CT/CT abdomen pelvis w con* [id number] IMPRESSION: Findings consistent with acute enterocolitis Stable cardiomegaly
--- NOTE | 2024-05-05 12:05 | XRR_ITS ---
PROCEDURE INFORMATION: Exam: XR Chest Exam date and time: 05/05/2024 12:34 PM Age: 33 years old Clinical indication: Cough and dyspnea; Additional info: Dyspnea/cough TECHNIQUE: Imaging protocol: Radiologic exam of the chest. Views: 1 view. COMPARISON: CR XR chest 1V portable [id number] 11/12/2023 7:14 PM FINDINGS: Lungs: Unremarkable. No consolidation or mass. Pleural spaces: Unremarkable. No pleural effusion. No pneumothorax. Heart/Mediastinum: Mild cardiomegaly is noted. Bones/joints: Unremarkable. XR/XR chest 1V portable [id number] IMPRESSION: No acute findings.
--- NOTE | 2024-05-05 12:14 | ED_ITS ---
HPI - General Adult 2 General: Chief complaint: General Medical Stated complaint: spider bite left ear, body aches Time Seen by Provider: 05/05/24 11:58 History of Present Illness: 33-year-old female history of end-stage renal disease is currently on dialysis. Patient presents to the emergency room tearful complaining of bodyaches she has a fever. States she has not felt well for the last week is headache nausea as well. She is complaining of dry heaving and generalized abdominal pain but nothing specific. She does still make small amounts of urine. She believes she had a spider bite in her left ear and got some antibiotics from her sisters from putting drops in her ear. There is no swelling in the ear no drainage at this time. She has a slight nonproductive cough. Denies any medic easy melena hematemesis coffee-ground emesis. Associated symptoms: Reports malaise; Deny chest pain, dyspnea or rash Review of Systems 2 Const: Reports: fever(s), chills, fatigue and malaise Card: Denies: chest pain Resp: Denies: dyspnea GI: Denies: abdominal pain : Denies: dysuria, urinary frequency or urinary urgency Musc: Denies: neck pain or back pain Skin/Breast: Denies: rash PFSH ED 2 PFSH: Medical History Methamphetamine abuse Posterior reversible encephalopathy syndrome White matter disease HCV (hepatitis C virus) on Acute kidney failure Ischemic bowel disease CHF (congestive heart failure), NYHA class III Resistant hypertension Pericardial effusion CKD (chronic kidney disease) Cardiomyopathy EF- 48% with mod LVH, grade 1 diastolic dysfunction Hypertension LVH (left ventricular hypertrophy) Methamphetamine abuse Substance abuse Surgical History Status post biopsy of kidney Status post insertion of hemodialysis catheter S/P cholecystectomy Family History Other CAD (coronary artery disease) Hypertension Social History Smoking and tobacco/nicotine status: current every day tobacco/nicotine user cigarettes Packs smoked per day: 0.5 Alcohol intake: never Substance/Drug Use: former Date of last use: Quit using last year Household members: family and other Details: Lives with mother Housing: House Marital status: Single Current occupational status: unemployed Current gender identity: Female Physical Exam 2 Const: COMMON NORMALS: no acute distress GENERAL APPEARANCE: cooperative ORIENTATION/CONSCIOUSNESS: Yes awake, Yes oriented to person, Yes oriented to place and Yes oriented to time HENMT: COMMON NORMALS: normocephalic, atraumatic and hearing grossly normal bilaterally HEAD & SCALP: normocephalic and atraumatic Resp: COMMON NORMALS: normal respiratory effort, No retractions, No use of accessory muscles and clear to auscultation bilaterally AUSCULTATION: clear to auscultation bilaterally Cardio: COMMON NORMALS: regular rate, regular rhythm and No murmurs present (Cardio) RATE: regular rate RHYTHM: regular rhythm GI: COMMON NORMALS: Soft to palpation and No hepatosplenomegaly present A USCULTATION: Yes normoactive bowel sounds PALPATION: Yes Soft to palpation, No Tenderness to palpation present (GI), No Guarding due to palpation present (GI) and Yes No hepatosplenomegaly present Extremity: COMMON NORMALS: normal to inspection, capillary refill normal, no clubbing, cyanosis or edema, no calf tenderness and no pedal edema Neuro: SENSORIUM/ORIENTATION: Yes oriented to person, Yes oriented to place and Yes oriented to time Skin: COMMON NORMALS: no rashes or lesions noted GENERAL SKIN EXAM: no rashes or lesions noted Course 2 Vital Signs: Vital signs: Vital Signs Temperature 101.1 F H 05/05/24 11:59 Pulse Rate 132 H 05/05/24 11:59 Respiratory Rate 22 H 05/05/24 11:59 Blood Pressure 178/88 05/05/24 11:59 Pulse Oximetry 98 05/05/24 11:59 Oxygen Delivery Me thod Room Air 05/05/24 11:59 MDM - General Adult Medical Decision Making Admit for sepsis. Concerned about IV drug use she is positive for methamphetamines. Has been off her medicines last few days and thinks some of her hypertension may be rebound particularly with the clonidine and labetalol. She was given amlodipine and labetalol and isosorbide in the emergency room her blood pressure did improve slightly think she may also be volume contracted despite not having gotten her dialysis yet today she was given some IV fluids. Will admit cover with Vanco and Zosyn to cover for MRSA. She has no recent culture showing any resistant ESBL. Urine also showed signs of infection. Will consult nephrology given multiple etiologies sepsis and end-stage renal disease will initially admit to ICU Lab Data 05/05/24 12:37 05/05/24 12:40 Radiology Impressions Abdomen/Pelvis CT 05/05/24 12:05 IMPRESSION: Findings consistent with acute enterocolitis Stable cardiomegaly Chest X-Ray 05/05/24 12:05 IMPRESSION: No acute findings. Laboratory Results WBC 17.37 10^3/uL (3.29-11.43) H 05/05/24 12:37 RBC 3.17 10^6/uL (3.85-5.65) L 05/05/24 12:37 Hgb 10.30 g/dL (11.27-16.99) L 05/05/24 12:37 Hct 30.9 % (36-47) L 05/05/24 12:37 MCV 97.5 fl (85-98) 05/05/24 12:37 MCH 32.5 pg (27-33) 05/05/24 12:37 MCHC 33.3 g/dL (30-55) 05/05/24 12:37 RDW 14.4 % (12.1-15.1) 05/05/24 12:37 Plt Count 126 10^3/cmm (157-399) L 05/05/24 12:37 MPV 11.0 fL (7.4-10.4) H 05/05/24 12:37 Neut % (Auto) 88.1 % 05/05/24 12:37 Lymph % (Auto) 3.6 % 05/05/24 12:37 [place] % (Auto) 7.4 % 05/05/24 12:37 Eos % (Auto) 0.0 % 05/05/24 12:37 Baso % (Auto) 0.2 % 05/05/24 12:37 Neut # (Auto) 15.31 10^3/uL (1.8-7.7) H 05/05/24 12:37 Lymph # (Auto) 0.6 10^3/uL (0.8-4.8) L 05/05/24 12:37 [place] # (Auto) 1.3 10^3/uL (0.2-0.9) H 05/05/24 12:37 Eos # (Auto) 0.0 10^3/uL (0.0-0.8) 05/05/24 12:37 Baso # (Auto) 0.0 10^3/uL (0.0-0.1) 05/05/24 12:37 Nucleated RBC % (auto) 0 % 05/05/24 12:37 Nucleated RBCs # 0.0 /100WBC 05/05/24 12:37 Sodium 129 mmol/L (136-145) L 05/05/24 12:40 Potassium 3.8 mmol/L (3.5-5.1) 05/05/24 12:40 Chloride 89 mmol/L (98-107) L 05/05/24 12:40 Carbon Dioxide 22 mmol/L (22-29) 05/05/24 12:40 Anion Gap 21.8 (5-19) H 05/05/24 12:40 BUN 31 mg/dL (6-20) H 05/05/24 12:40 Creatinine 9.4 mg/dL (0.5-0.9) H* 05/05/24 12:40 GFR Calculation 4.8 mL/min (90-130) L 05/05/24 12:40 Glucose 119 mg/dL (65-115) H 05/05/24 12:40 Calculated Osmolality 276 mOsm/kg (285-295) L 05/05/24 12:40 Lactic Acid 1.0 mmol/L (0.5-2.2) 05/05/24 12:37 Calcium 9.1 mg/dL (8.5-10.5) 05/05/24 12:40 Magnesium 1.6 mg/dL (1.7-2.3) L 05/05/24 12:40 Total Bilirubin 0.4 mg/dL (0.15-1.2) 05/05/24 12:40 AST 19 U/L (0-32) 05/05/24 12:40 ALT 18 U/L (0-33) 05/05/24 12:40 Alkaline Phosphatase 100 U/L (35-105) 05/05/24 12:40 Total Protein 7.3 g/dL (6.6-8.7) 05/05/24 12:40 Albumin 3.7 g/dL (3.5-5.2) 05/05/24 12:40 Globulin 3.6 g/dL (1.3-4.6) 05/05/24 12:40 Lipase 11 U/L (13-60) L 05/05/24 12:40 Urine Color Yellow (Yellow) 05/05/24 12:44 Urine Appearance Cloudy (CLEAR) A 05/05/24 12:44 Urine pH 8 (5-7) H 05/05/24 12:44 Ur Specific [place] 1.010 (1.005-1.030) 05/05/24 12:44 Urine Protein 2+ (Negative) H 05/05/24 12:44 Urine Glucose (UA) Norm (Normal) 05/05/24 12:44 Urine Ketones Negative (Negative) 05/05/24 12:44 Urine Blood 3+ (Negative) H 05/05/24 12:44 Urine Nitrate Negative (Negative) 05/05/24 12:44 Urine Bilirubin Neg (Negative) 05/05/24 12:44 Urine Urobilinogen Norm mg/dL (Negative) 05/05/24 12:44 Ur Leukocyte Esterase 2+ (Negative) H 05/05/24 12:44 Urine RBC 10-15 /hpf (0-2) H 05/05/24 12:44 Urine WBC >100 /hpf (0-5) H 05/05/24 12:44 Ur Squamous Epith Cells 5-10 /hpf (0-5) H 05/05/24 12:44 Amorphous Sediment Not Reportable 05/05/24 12:44 Urine Bacteria 4+ /hpf (NONE) H 05/05/24 12:44 Urine Opiates Screen Negative ng/mL (Negative) 05/05/24 12:44 Ur Barbiturates Screen Negative ng/mL (Negative) 05/05/24 12:44 Ur Phencyclidine Scrn Negative ng/mL (Negative) 05/05/24 12:44 Ur Amphetamines Screen Positive ng/mL (Negative) H 05/05/24 12:44 U Benzodiazepines Scrn Negative ng/mL (Negative) 05/05/24 12:44 Urine Cocaine Screen Negative ng/mL (Negative) 05/05/24 12:44 U Marijuana (THC) Screen Negative ng/mL (Negative) 05/05/24 12:44 All radiology interpretation(s) finalized by discharge Discharge Plan Discharge Patient Disposition: Admitted As Inpatient Clinical Impression: Sepsis, Methamphetamine abuse, Pyelonephritis, Labile hypertension, Urinary tract infection, Hepatitis C, Pneumonia Condition: Stable Coding Level of Care Code ED Counter Pocket Sewer for Guillermo Puente
[2024-05-05] MEDS: amlodipine 10 mg Tablet PO (12:19)
[2024-05-05] MEDS: labetalol 200 mg Tablet 300 MG PO ×2 (12:19→18:38)
[2024-05-05] MEDS: isosorbide mononitrate ER 60 mg Tablet 120 MG PO (12:20)
[2024-05-05 12:52] LABS: Basophils % 0.2 %; Hematocrit 30.9 % (36-47); Lymphocytes # 0.6 10^3/uL (0.8-4.8); Lymphocytes % 3.6 %; Mean Corpuscular HGB Conc 33.3 g/dL (30-55); Mean Corpuscular Hemoglobin 32.5 pg (27-33); Mean Corpuscular Volume 97.5 fl (85-98); Monocytes # 1.3 10^3/uL (0.2-0.9); Monocytes % 7.4 %; Neutrophils # 15.31 10^3/uL (1.8-7.7); Neutrophils % 88.1 %; Nucleated Red Blood Cells % 0 %; Platelet Count 126 10^3/cmm (157-399); Red Blood Count 3.17 10^6/uL (3.85-5.65); Red Cell Distribution Width 14.4 % (12.1-15.1); White Blood Count 17.37 10^3/uL (3.29-11.43)
[2024-05-05 13:09] LABS: Alanine Aminotransferase 18 U/L (0-33); Albumin Level 3.7 g/dL (3.5-5.2); Alkaline Phosphatase 100 U/L (35-105); Anion Gap 21.8 (5-19); Aspartate Amino Transferase 19 U/L (0-32); Blood Urea Nitrogen 31 mg/dL (6-20); Calcium 9.1 mg/dL (8.5-10.5); Carbon Dioxide 22 mmol/L (22-29); Chloride 89 mmol/L (98-107); Globulin 3.6 g/dL (1.3-4.6); Glomerular Filtration Rate 4.8 mL/min (90-130); Glucose 119 mg/dL (65-115); Lipase 11 U/L (13-60); Magnesium 1.6 mg/dL (1.7-2.3); Osmolality Calculated 276 mOsm/kg (285-295); Potassium 3.8 mmol/L (3.5-5.1); Sodium 129 mmol/L (136-145); Total Bilirubin 0.4 mg/dL (0.15-1.2); Total Protein 7.3 g/dL (6.6-8.7)
[2024-05-05 13:12] LABS: Creatinine Clr Calc Pharmacy 8.9159
[2024-05-05 13:19] LABS: Urine Appearance Cloudy (CLEAR); Urine Color Yellow (Yellow)
[2024-05-05 13:20] LABS: Add Urine Microscopic? YES; Bilirubin Urine Neg (Negative); Blood Urine 3+ (Negative); Glucose Urine UA Norm (Normal); Ketones Urine Negative (Negative); Leukocyte Esterase Urine 2+ (Negative); Nitrate Urine Negative (Negative); Protein Urine 2+ (Negative); Urobilinogen Urine Norm (Negative); WBC Urine >100 /hpf (0-5); pH Urine 8 (5-7)
[2024-05-05 13:21] LABS: Add Urine Culture? Yes; Bacteria Urine 4+ /hpf
[2024-05-05] MEDS: sodium chloride 0.9% 2,721.54 ML 2721.54 ML IV (13:32)
[2024-05-05] MEDS: iohexol 350 mg/mL 500 mL Btl (per mL) IV ×2 (13:36→15:56)
[2024-05-05 13:41] LABS: Amphetamines Screen Urine Positive (Negative); Barbiturates Screen Urine Negative (Negative); Benzodiazepines Screen Urine Negative (Negative); Cocaine Screen Urine Negative (Negative); Opiate Screen Urine Negative (Negative); PCP Screen Urine Negative (Negative); THC Screen Urine Negative (Negative)
[2024-05-05] MEDS: piperacillin-tazobactam 3.375 GM in sodium chloride 0.9% (plus) 50 ML IV (14:34)
--- NOTE | 2024-05-05 14:50 | CTR_ITS ---
PROCEDURE INFORMATION: Exam: CT Head With Contrast Exam date and time: 05/05/2024 3:49 PM Age: 33 years old Clinical indication: Pain; Headache; Additional info: Headache, fever, immunocompromise TECHNIQUE: Imaging protocol: Computed tomography of the head with intravenous contrast. Radiation optimization: All CT scans at this facility use at least one of these dose optimization techniques: automated exposure control; mA and/or kV adjustment per patient size (includes targeted exams where dose is matched to clinical indication); or iterative reconstruction. Contrast material: OMNI 350; Contrast volume: 60 ml; Contrast route: INTRAVENOUS (IV); COMPARISON: CT head wo con* [id number] 02/19/2022 5:27 PM RADIATION DOSE METRICS: Total DLP (mGy-cm): 1086.44 FINDINGS: Brain: Unremarkable white matter. No mass effect. No abnormal enhancing lesions. Cerebral ventricles: Unremarkable. No ventriculomegaly. Bones/joints: There is evidence right maxillary, ethmoid and frontal sinusitis. Paranasal sinuses: See Bones/joints finding. Mastoid air cells: Visualized mastoid air cells are well aerated. Soft tissues: Unremarkable. CT/CT head w con [id number] IMPRESSION: Right-sided sinusitis
[2024-05-05 14:59] LABS: Adenovirus Not Detected (NOT DETECT); Chlamydia Pneumoniae Not Detected (NOT DETECT); Coronavirus 229E,HKU1,NL63,OC4 Not Detected (NOT DETECT); Human Metapneumovirus Not Detected (NOT DETECT); Human Rhinovirus/Enterovirus Not Detected (NOT DETECT); Influenza A Not Detected (NOT DETECT); Influenza A H1 Not Detected (NOT DETECT); Influenza A H1-2009 Not Detected (NOT DETECT); Influenza A H3 Not Detected (NOT DETECT); Influenza B Not Detected (NOT DETECT); Mycoplasma Pneumoniae Not Detected (NOT DETECT); Parainfluenza Virus Type 1 Not Detected (NOT DETECT); Parainfluenza Virus Type 2 Not Detected (NOT DETECT); Parainfluenza Virus Type 3 Not Detected (NOT DETECT); Parainfluenza Virus Type 4 Not Detected (NOT DETECT); Respiratory Syncytial Virus A Not Detected (NOT DETECT); Respiratory Syncytial Virus B Not Detected (NOT DETECT); SARS-COV-2 Not Detected (NOT DETECT)
--- NOTE | 2024-05-05 14:59 | P.HP_ITS ---
Providers/Chief Complaint 2 Primary Care Provider: Laurent Wolfe MD Chief Complaint: spider bite left ear, body aches, fever, n/v History of Present Illness 33-year-old lady with history of ESRD on HD TTS, history of pericardial effusion, HCV, LVH, CHF, HTN, methamphetamine use disorder, she denies intravenous injection of methamphetamine, states that she was snorting it., smoking, presents after feeling unwell, with having a headache for several days, then in the last day also having some nausea and diarrhea. She has been having a fever. She did not have dialysis today but had dialysis 3 times on room Tuesday after coming back from vacation from [place]. She reported that she had a spider bite in her left ear, she states that her sister had given her 3 different antibiotics for her ear. In ER she is febrile 101.1, tachycardic 132, tachypneic 22, hypertensive 178/88. With leukocytosis 17.4, hemoglobin 10.3, platelets 126. Sodium 129, BUN 31, creatinine 9.4, glucose 119. Urine cloudy, 3+ blood, 10-15 RBC, more than 100 WBC, 5-10 squamous epithelial cells. 4+ bacteria. U tox positive for amphetamine. CT abdomen pelvis with findings of enterocolitis, stable cardiomegaly. Chest x-ray without acute findings. Review of Systems 2 Const: Denies: fever(s), chills, body aches or malaise Eyes: Denies: change in vision Card: Denies: chest pain, edema, pre-syncope or dyspnea on exertion Resp: Denies: dyspnea, productive cough, change in phlegm color or hemoptysis GI: Denies: abdominal pain, nausea, vomiting, diarrhea, constipation, hematochezia or melena : Denies: flank pain, urinary frequency or hematuria Musc: Denies: back pain, joint swelling or joint redness Skin/Breast: Denies: rash or new lesions Neuro: Denies: headache(s) Medications/Allergies Home Medications Medication Instructions Recorded Confirmed Last Taken Type dicyclomine 10 mg capsule 10 mg PO TID PRN Cramps 05/08/21 02/19/22 05/08/21 History labetalol 300 mg tablet 300 mg PO BID #60 tabs 10/08/21 02/19/22 01/08/22 Rx docusate sodium 100 mg capsule 100 mg PO BID 11/10/21 02/19/22 01/08/22 History furosemide 40 mg tablet 40 mg PO BID@08,16 #60 tabs 11/13/21 02/19/22 01/08/22 Rx nifedipine 90 mg tablet,extended 90 mg PO DAILY #30 tabs 11/13/21 02/19/22 01/08/22 Rx release 24 hr hydralazine 100 mg tablet 200 mg (2 x 100 mg) PO BID #336 12/21/21 02/19/22 01/08/22 Rx tabs glecaprevir 100 mg-pibrentasvir 40 3 tab PO DAILY 30 days #84 tabs 12/30/21 02/19/22 Unknown Rx mg tablet (Mavyret) acetaminophen 500 mg tablet 500 - 1,000 mg PO Q6H PRN Pain 02/19/22 02/19/22 Unknown History amlodipine 10 mg tablet 10 mg PO DAILY 02/19/22 02/19/22 Unknown History aspirin 325 mg tablet 325 mg PO . DIRECTED 02/19/22 02/19/22 Unknown History clonidine 0.3 mg/24 hr weekly 0.3 mg transdermal Q7D 02/19/22 02/19/22 Unknown History transdermal patch clonidine HCl 0.1 mg tablet See Rx Instructions .Route .COMPLEX 02/19/22 02/19/22 Unknown History doxycycline hyclate 100 mg capsule 100 mg PO BID 02/19/22 02/19/22 Unknown History ibuprofen 100 mg chewable tablet See Rx Instructions .Route .COMPLEX 02/19/22 02/19/22 Unknown History isosorbide mononitrate 120 mg 120 mg PO DAILY 02/19/22 02/19/22 Unknown History tablet,extended release 24 hr melatonin 10 mg tablet 10 mg PO BEDTIME PRN Sleep 02/19/22 02/19/22 Unknown History metolazone 5 mg tablet 5 mg PO EVERY OTHER DAY 02/19/22 02/19/22 Unknown History nicotine 21 mg/24 hr daily 1 patch transdermal DAILY 02/19/22 02/19/22 Unknown History transdermal patch potassium gluconate 595 mg (99 mg) 595 mg PO . DIRECTED 02/19/22 02/19/22 Unknown History tablet Allergies Allergy/AdvReac Type Severity Reaction Status Date / Time No Known Allergies Allergy Verified 02/02/22 13:54 PFSH Acute 2 PFSH: Medical History Methamphetamine abuse Posterior reversible encephalopathy syndrome White matter disease HCV (hepatitis C virus) on Acute kidney failure Ischemic bowel disease CHF (congestive heart failure), NYHA class III Resistant hypertension Pericardial effusion CKD (chronic kidney disease) Cardiomyopathy EF- 48% with mod LVH, grade 1 diastolic dysfunction Hypertension LVH (left ventricular hypertrophy) Methamphetamine abuse Substance abuse Surgical History Status post biopsy of kidney Status post insertion of hemodialysis catheter S/P cholecystectomy Family History Other CAD (coronary artery disease) Hypertension Social History Smoking and tobacco/nicotine status: current every day tobacco/nicotine user cigarettes Packs smoked per day: 0.5 Alcohol intake: never Substance/Drug Use: former Date of last use: Quit using last year Household members: family and other Details: Lives with mother Housing: House Marital status: Single Current occupational status: unemployed Current gender identity: Female Vitals/I&O/Wt Last Vital Signs Temp 101.1 F H 05/05/24 11:59 Pulse 132 H 05/05/24 11:59 Resp 22 H 05/05/24 11:59 BP 178/88 05/05/24 11:59 Pulse Ox 98 05/05/24 11:59 O2 Del Method Room Air 05/05/24 11:59 Weight last 48 hrs Weight 90.718 kg Physical Exam 2 Narrative: Somnolent but wakes up to voice. Const: COMMON NORMALS: patient oriented x3 NUTRITIONAL APPEARANCE: o verweight HENMT: COMMON NORMALS: oropharynx normal Neck/C-Spine: COMMON NORMALS: no JVD Resp: COMMON NORMALS: normal respiratory effort and clear to auscultation bilaterally AUSCULTATION: clear to auscultation bilaterally Cardio: COMMON NORMALS: no JVD, regular rhythm, S1 normal heart sound present, S2 normal heart sound present and No murmurs present (Cardio) RATE: t achycardic RHYTHM: regular rhythm HEART SOUNDS: S1 normal heart sound present and S2 normal heart sound present GI: COMMON NORMALS: Normal to inspection, nondistended, normoactive bowel sounds present, Soft to palpation and non-tender PALPATION: Yes Soft to palpation Extremity: COMMON NORMALS: no joint enlargement and no pedal edema Neuro: COMMON NORMALS: patient oriented x3 and moves all extremities S ENSORIUM/ORIENTATION: Yes alert Skin: COMMON NORMALS: no rashes or lesions noted GENERAL SKIN EXAM: no rashes or lesions noted Data 05/05/24 12:37 05/05/24 12:40 Micro: Microbiology 05/05/24 12:40 Blood Culture - Preliminary Blood SPECIMEN COLLECTED 05/05/24 12:37 Blood Culture - Preliminary Blood SPECIMEN COLLECTED A&P Assessment and plan (1) Sepsis: Reviewed vitals, CBC, CMP, lipase, magnesium, UA, UDS, respiratory viral panel, CT abdomen pelvis, chest x-ray, ER provider note, discussed with ER provider. Sepsis with fever one 1.1, tachycardia 108, respiratory rate 22, leukocytosis 17.37. Source urinary with UTI. Recently ear infection but does not have suggestion of otitis media. Does have headache, neck pain, possible meningitis. With nausea vomiting, diarrhea as well with findings suggestive of enterocolitis on CT. Immunocompromised with underlying ESRD. Additionally methamphetamine use disorder. Denies injection use. Blood cultures collected, started on vancomycin. Continue. Monitor vancomycin levels at risk for toxicity. Pharmacy to dose. Will switch antibiotics to ceftriaxone. Sepsis complicated by significant tachycardia, hypotension, acute encephalopathy with lethargy. With underlying ESRD, with labile hypertension, with severe tachycardia and underlying severe hypertrophic cardiomyopathy admission to intensive care unit. Received labetalol. Continue labetalol. Esmolol drip if lack of response. With headache, neck stiffness, sepsis, concern for possible meningitis, discussed with her and ER physician. Requesting CT head given immunocompromise, methamphetamine use disorder prior to lumbar puncture. (2) Hypertensive urgency: Hypertension tachycardia 178/88 blood pressure, heart rates 108-132. Received labetalol. At risk of hemodynamic compromise with severe underlying LVH. Mild cardiomegaly noted on review of chest x-ray, CT abdomen pelvis. Previously pericardial effusion, but I do not see [address] abdomen pelvis this time. Admission to intensive care unit given severe risk of hemodynamic compromise. Continue labetalol, resume clonidine. Esmolol drip if needed. (3) Urinary tract infection: Complicated urine tract infection with sepsis, encephalopathy. Recurrent urinary tract infection in the past mostly with E. coli. 1 pseudomonal. I do not see record of ESBL infection on review of cultures. Received Zosyn empirically for now. Follow-up urine culture, blood culture. (4) ESRD (end stage renal disease): Discussed with concrete mixer operator, she did have dialysis 3 days in a row Tuesday. Appreciate consultation regarding consideration of next dialysis. Normally gets it on TTS schedule. Plan Hyponatremia: Sodium 129. Appears of chronic hyponatremia, slightly worse today result. Continuing on hemodialysis. Hypomagnesemia: With severe underlying LVH, monitor on telemetry with risk of arrhythmia. Replace magnesium. Recheck. Methamphetamine use disorder: Reports snorting, denies injection use. Blood cultures obtained. LVH: Severe concentric LVH, resume beta-jin. Smoking: Encourage cessation. Attestations 2 Medical Necessity Statement*: Admission of over 2 midnights anticipated for assessment of management of sepsis, complicated UTI, possible meningitis, with acute encephalopathy, in a young lady with ESRD, methamphetamine use disorder. Coding Level of Care Code Critical Care >/= 30 minutes Critical care time (in minutes): 35 The high probability of a clinically significant, sudden or life threatening deterioration, as referenced in this documentation, required my full and direct attention, intervention and personal management. The critical care time shown is in addition to time spent performing any reported separately billable procedures and includes the following: [x] Data and vital sign review and interpretation [x ] Patient assessment, examination and intervention [x] Medication orders and management [x] Patient/Family updates as able [x] Care Coordination and Documentation. Diagnoses Sepsis A41.9 Hypertensive urgency I16.0 Urinary tract infection N39.0 ESRD (end stage renal disease) N18.6
[2024-05-05] MEDS: vancomycin 1,000 MG in sodium chloride 0.9% 250 ML 250 MG IV (15:04)
[2024-05-05] MEDS: cloNIDine 0.3 mg/24 hr Patch 1 PATCH TRANSDERMA (16:18)
[2024-05-05] MEDS: cefTRIAXone 2,000 mg SDV 2000 MG IVP (16:18)
[2024-05-05] MEDS: magnesium sulfate premix 2 GM/50 ML PIGGYBACK IV (16:31)
[2024-05-05] MEDS: sodium chloride 0.9% 1,000 ML 100 ML IV (20:46)
--- NOTE | 2024-05-05 22:09 | PC.NURSE ---
Headache Patient complaining of severe headache. Tylenol offered but refused. Dr. Nobles contacted; order received for 0.2 mg dilaudid IVP once one.
[2024-05-05] MEDS: HYDROmorphone 1 mg/mL INJ 1 mL 0.2 MG IVP (22:15)
[2024-05-06] VITALS (36 sets, daily range): BP systolic 104–182; BP diastolic 49–116; PULSE 68–98; RESP 3–30; TEMP 36.4–37.3; O2SAT 90–100; BMI 39.1
[2024-05-06 03:14] LABS: Bacillus cereus group Not Detected (NOT DETECT); Bacillus subtillis group Not Detected (NOT DETECT); Corynebacterium Not Detected (NOT DETECT); Cutibacterium acnes (P.acnes) Not Detected (NOT DETECT); Enterococcus Not Detected (NOT DETECT); Enterococcus faecalis Not Detected (NOT DETECT); Enterococcus faecium Not Detected (NOT DETECT); Lactobacillus species Not Detected (NOT DETECT); Listeria Not Detected (NOT DETECT); Listeria monocytogenes Not Detected (NOT DETECT); Micrococcus Not Detected (NOT DETECT); Pan Candida Not Detected (NOT DETECT); Pan Gram-Negative Not Detected (NOT DETECT); Staphylococcus epidermidis Not Detected (NOT DETECT); Staphylococcus lugdunensis Not Detected (NOT DETECT); Staphylococcus species Detected (NOT DETECT); Streptococcus agalactiae Not Detected (NOT DETECT); Streptococcus anginosus group Not Detected (NOT DETECT); Streptococcus pneumoniae Not Detected (NOT DETECT); Streptococcus pyogenes Not Detected (NOT DETECT); Streptococcus species Not Detected (NOT DETECT); mecA Detected (NOT DETECT); mecC Not Detected (NOT DETECT)
--- NOTE | 2024-05-06 03:15 | PC.NURSE ---
Fluids Patient received sepsis bolus in ED and maintenance fluid administering at 100 ml/hr. Dr. Nobles contacted and order received to discontinue NS maintenance fluid.
--- NOTE | 2024-05-06 03:21 | PC.NURSE ---
Blood Cultures Dr. Nobles notified of preliminary blood culture results; order received for vancomycin with pharmacy to dose.
[2024-05-06 04:14] LABS: Basophils # 0.1 10^3/uL (0.0-0.1); Basophils % 0.3 %; Eosinophils % 0.2 %; Hematocrit 26.1 % (36-47); Lymphocytes # 1.1 10^3/uL (0.8-4.8); Lymphocytes % 6.7 %; Mean Corpuscular Hemoglobin 32.8 pg (27-33); Mean Corpuscular Volume 99.6 fl (85-98); Mean Platelet Volume 11.6 fL (7.4-10.4); Monocytes # 2.1 10^3/uL (0.2-0.9); Monocytes % 13.1 %; Nucleated Red Blood Cells % 0 %; Platelet Count 115 10^3/cmm (157-399); Red Blood Count 2.62 10^6/uL (3.85-5.65); Red Cell Distribution Width 14.8 % (12.1-15.1); White Blood Count 15.59 10^3/uL (3.29-11.43)
[2024-05-06] MEDS: cefTRIAXone 2,000 mg SDV 2000 MG IVP ×2 (04:38→17:19)
[2024-05-06 04:39] LABS: Alanine Aminotransferase 14 U/L (0-33); Albumin Level 3.3 g/dL (3.5-5.2); Alkaline Phosphatase 90 U/L (35-105); Anion Gap 20.6 (5-19); Aspartate Amino Transferase 15 U/L (0-32); Blood Urea Nitrogen 38 mg/dL (6-20); Calcium 8.7 mg/dL (8.5-10.5); Carbon Dioxide 20 mmol/L (22-29); Chloride 94 mmol/L (98-107); Creatinine Clr Calc Pharmacy 8.5177; Glomerular Filtration Rate 4.4 mL/min (90-130); Glucose 93 mg/dL (65-115); Magnesium 2.2 mg/dL (1.7-2.3); Osmolality Calculated 281 mOsm/kg (285-295); Phosphorus 4.3 mg/dL (2.5-4.5); Potassium 3.6 mmol/L (3.5-5.1); Sodium 131 mmol/L (136-145); Total Bilirubin 0.2 mg/dL (0.15-1.2); Total Protein 6.3 g/dL (6.6-8.7)
[2024-05-06 07:46] LABS: Hepatitis B Core AB, Total Non-Reactive (Nonreactive); Hepatitis B Surface AB 218.6 (11.5-1000); Hepatitis B Surface Antigen Non-Reactive (Nonreactive)
--- NOTE | 2024-05-06 07:51 | P.CONIM_ITS ---
Providers/Reason For Consult 2 Consulting Physician/Specialty*: [facility]/Nephrology Reason for Consult*: ESRD Attending Physician: Ralph Carter Primary Care Provider: Laurent Wolfe MD History of Present Illness History of Present Illness Debo Little is a 33 year old female Patient is a 33-year-old female with past medical history of end-stage renal disease on TTS schedule for hemodialysis, history of hypertension, congestive cardiac failure history of methamphetamine use tobacco use presented to the emergency department due to headache nausea and diarrhea. In the ER patient was febrile up to 101 was tachycardic and tachypneic and hypertensive. Last dialysis was on . UA was consistent with possible UTI urine tox screen positive for amphetamines CT scan of the abdomen pelvis showed findings consistent with enterocolitis and stable cardiomegaly. Review of Systems 2 Narrative: Other review of systems negative Medications/Allergies Home Medications Medication Instructions Recorded Confirmed Last Taken Type dicyclomine 10 mg capsule 10 mg PO TID PRN Cramps 05/08/21 05/05/24 05/04/24 09:00 History labetalol 300 mg tablet 300 mg PO BID #60 tabs 10/08/21 02/19/22 01/08/22 Rx docusate sodium 100 mg capsule 100 mg PO BID 11/10/21 05/05/24 05/04/24 09:00 History furosemide 40 mg tablet 40 mg PO BID@08,16 #60 tabs 11/13/21 02/19/22 01/08/22 Rx nifedipine 90 mg tablet,extended 90 mg PO DAILY #30 tabs 11/13/21 02/19/22 01/08/22 Rx release 24 hr hydralazine 100 mg tablet 200 mg (2 x 100 mg) PO BID #336 12/21/21 02/19/22 01/08/22 Rx tabs glecaprevir 100 mg-pibrentasvir 40 3 tab PO DAILY 30 days #84 tabs 12/30/21 02/19/22 Unknown Rx mg tablet (Mavyret) acetaminophen 500 mg tablet 500 - 1,000 mg PO Q6H PRN Pain 02/19/22 02/19/22 Unknown History amlodipine 10 mg tablet 10 mg PO DAILY 02/19/22 02/19/22 Unknown History aspirin 325 mg tablet 325 mg PO . DIRECTED 02/19/22 02/19/22 Unknown History clonidine 0.3 mg/24 hr weekly 0.3 mg transdermal Q7D 02/19/22 02/19/22 Unknown History transdermal patch clonidine HCl 0.1 mg tablet See Rx Instructions .Route .COMPLEX 02/19/22 05/05/24 Unknown History doxycycline hyclate 100 mg capsule 100 mg PO BID 02/19/22 02/19/22 Unknown History ibuprofen 100 mg chewable tablet See Rx Instructions .Route .COMPLEX 02/19/22 02/19/22 Unknown History isosorbide mononitrate 120 mg 120 mg PO DAILY 02/19/22 05/05/24 05/04/24 09:00 History tablet,extended release 24 hr melatonin 10 mg tablet 10 mg PO BEDTIME PRN Sleep 02/19/22 02/19/22 Unknown History metolazone 5 mg tablet 5 mg PO EVERY OTHER DAY 02/19/22 02/19/22 Unknown History nicotine 21 mg/24 hr daily 1 patch transdermal DAILY 02/19/22 02/19/22 Unknown History transdermal patch potassium gluconate 595 mg (99 mg) 595 mg PO . DIRECTED 02/19/22 02/19/22 Unknown History tablet amlodipine 10 mg tablet 10 mg PO DAILY 05/05/24 05/05/24 05/04/24 09:00 History bumetanide 1 mg tablet 1 mg PO DIRECTED 05/05/24 05/05/24 05/04/24 09:00 History cholecalciferol (vitamin D3) 50 50 mcg PO DAILY 05/05/24 05/05/24 05/04/24 09:00 History mcg (2,000 unit) capsule labetalol 200 mg tablet 200 mg PO BID 05/05/24 05/05/24 05/04/24 09:00 History losartan 50 mg tablet 50 mg PO BEDTIME 05/05/24 05/05/24 Unknown History metolazone 5 mg tablet 5 mg PO EVERY OTHER DAY 05/05/24 05/05/24 Unknown History minoxidil 10 mg tablet 10 mg PO BID 05/05/24 05/05/24 05/04/24 09:00 History Allergies Allergy/AdvReac Type Severity Reaction Status Date / Time No Known Allergies Allergy Verified 02/02/22 13:54 Current Medications Generic Name Dose Route Start Last Admin Trade Name Freq PRN Reason Stop Dose Admin Ceftriaxone Sodium 2,000 mg 05/05/24 16:00 05/06/24 04:38 Ceftriaxone 2,000 Mg Sdv IVP 2,000 mg Q12H GENNY Administration Protocol Clonidine HCl 1 patch 05/05/24 16:00 05/05/24 16:18 Clonidine 0.3 Mg/24 Hr Patch TRANSDERMA 1 patch Q7D GENNY Administration Labetalol HCl 300 mg 05/05/24 18:00 05/05/24 18:38 Labetalol 200 Mg Tablet PO 300 mg BID GENNY Administration PFSH Acute 2 PFSH: Medical History Methamphetamine abuse Posterior reversible encephalopathy syndrome White matter disease HCV (hepatitis C virus) on Acute kidney failure Ischemic bowel disease CHF (congestive heart failure), NYHA class III Resistant hypertension Pericardial effusion CKD (chronic kidney disease) Cardiomyopathy EF- 48% with mod LVH, grade 1 diastolic dysfunction Hypertension LVH (left ventricular hypertrophy) Methamphetamine abuse Substance abuse Surgical History Status post biopsy of kidney Status post insertion of hemodialysis catheter S/P cholecystectomy Family History Other CAD (coronary artery disease) Hypertension Social History Smoking and tobacco/nicotine status: current every day tobacco/nicotine user cigarettes Packs smoked per day: 0.5 Alcohol intake: never Substance/Drug Use: former Date of last use: Quit using last year Household members: family and other Details: Lives with mother Housing: House Marital status: Single Current occupational status: unemployed Current gender identity: Female Vitals/I&O/Wt Last Vital Signs Temp 97.9 F 05/06/24 04:30 Pulse 70 05/06/24 06:30 Resp 21 H 05/06/24 06:30 BP 146/69 05/06/24 06:30 Pulse Ox 97 05/06/24 06:30 O2 Del Method Nasal Cannula 05/06/24 04:30 O2 Flow Rate 4 05/06/24 04:30 05/05/24 05/06/24 05/06/24 22:59 06:59 14:59 Intake Total 3071.54 / 3071.54 633.333 / 3704.873 Balance 3071.54 / 3071.54 633.333 / 3704.873 Weight last 48 hrs Weight 97.069 kg Weight 96.797 kg Weight 90.718 kg Physical Exam 2 Narrative: Patient is awake alert no distress HEENT S1-S2 regular rate and rhythm per report Lungs clear per report No pedal edema Data 05/06/24 03:53 05/06/24 03:53 Micro: Microbiology 05/05/24 12:40 Blood Culture - Preliminary Blood 05/05/24 12:37 Blood Culture - Preliminary Blood A&P Assessment and plan (1) ESRD (end stage renal disease): Plan 1. End-stage renal disease: On TTS schedule as outpatient, last dialysis was on -Plan for HD today and ultrafiltration as tolerated 2. History of hypertension: Blood pressure elevated, resume home medications, and should improve with ultrafiltration with HD 3. Anemia: Will order MALGORZATA with HD 4. Enterocolitis: Management per primary team 5. E. coli UTI 6. Amphetamine use history Patient evaluated using audiovisual cart. Time spent 40 minutes. Consult Attestations 2 Medical Necessity Statement: per silvestre Coding Level of Care Code Acute Code for Chg Fwd Diagnoses ESRD (end stage renal disease) N18.6
--- NOTE | 2024-05-06 08:43 | PC.NURSE ---
pt request no information provided to parents and her siblings except to her kids per pt verbalization.
[2024-05-06] MEDS: nicotine 21 mg Patch 1 PATCH TRANSDERMA (09:15)
[2024-05-06] MEDS: labetalol 200 mg Tablet 300 MG PO ×2 (09:15→17:33)
[2024-05-06] MEDS: ALPRAZolam 0.5 mg Tablet PO (12:04)
[2024-05-06] MEDS: ketorolac 30 mg/mL INJ 15 MG IVP ×2 (12:05→22:33)
--- NOTE | 2024-05-06 12:29 | PC.NURSE ---
doctor notified pt started to get anxious and agitated due to report of being in pain all over body, more on neck area. notified dr preciado and recieved orders for prn toradol, lidocaine patch and prn xanax.
--- NOTE | 2024-05-06 18:23 | PC.NURSE ---
transferred to med surg report called to jasmin flynn.
--- NOTE | 2024-05-06 18:24 | PC.NURSE ---
pt is okay to give information to her mother at bedside.
--- NOTE | 2024-05-06 20:05 | P.PN_ITS ---
Subjective 2 Subjective: She reports feeling better today. Headache with some improvement. Not entirely resolved. Lumbar puncture could not be obtained. Pending hemodialysis today. She is tolerating oral diet. So far no vomiting but some diarrhea still persist. Vitals/I&O/Wt Last Vital Signs Temp 97.9 F 05/06/24 17:38 Pulse 79 05/06/24 18:11 Resp 15 05/06/24 18:11 BP 156/116 05/06/24 18:11 Pulse Ox 98 05/06/24 14:30 O2 Del Method Room Air 05/06/24 08:30 O2 Flow Rate 4 05/06/24 04:30 05/06/24 05/06/24 05/06/24 06:59 14:59 22:59 Intake Total 633.333 / 3704.873 236 / 236 236 / 472 Balance 633.333 / 3704.873 236 / 236 236 / 472 Weight last 48 hrs Weight 97.069 kg Weight 96.797 kg Weight 90.718 kg Physical Exam 2 Narrative: Somnolent but wakes up to voice. Const: COMMON NORMALS: patient oriented x3 and alert NUTRITIONAL APPEARANCE: overweight HENMT: COMMON NORMALS: oropharynx normal Neck/C-Spine: COMMON NORMALS: no JVD Resp: COMMON NORMALS: normal respiratory effort and clear to auscultation bilaterally AUSCULTATION: clear to auscultation bilaterally Cardio: COMMON NORMALS: no JVD, regular rhythm, S1 normal heart sound present, S2 normal heart sound present and No murmurs present (Cardio) RATE: t achycardic RHYTHM: regular rhythm HEART SOUNDS: S1 normal heart sound present and S2 normal heart sound present GI: COMMON NORMALS: Normal to inspection, nondistended, normoactive bowel sounds present, Soft to palpation and non-tender PALPATION: Yes Soft to palpation Extremity: COMMON NORMALS: no joint enlargement and no pedal edema Neuro: COMMON NORMALS: patient oriented x3 and moves all extremities S ENSORIUM/ORIENTATION: Yes alert Skin: COMMON NORMALS: no rashes or lesions noted GENERAL SKIN EXAM: no rashes or lesions noted Data 05/06/24 03:53 05/06/24 03:53 Micro: Microbiology 05/05/24 12:40 Blood Culture - Preliminary Blood Staphylococcus aureus 05/05/24 12:37 Blood Culture - Preliminary Blood Staphylococcus aureus 05/05/24 12:44 Urine Culture - Preliminary Urine,Clean Catch Gram Negative Rods A&P Assessment and plan (1) Sepsis: Improving. Fever so far resolved. WBC down to 15.59 on review of CBC. Platelets are down to 115. Reviewed urine culture, so far growing 100,000 gram- negative rods. Blood culture with gram-positive cocci. 2/4 bottles. History of methamphetamine use disorder, ESRD on HD. Start with TTE. CT head with incidentally noted right sided sinusitis. Continue empiric antibiotic coverage with ceftriaxone, vancomycin, requesting pharmacy to dose given ESRD with hemodialysis. HD today. Discussed with pharmacist. Monitor for toxicity. Lumbar puncture was attempted last night by ER physician but could not be obtained. Sepsis complicated by significant tachycardia, hypotension, acute encephalopathy with lethargy. With underlying ESRD, with labile hypertension, with severe tachycardia and underlying severe hypertrophic cardiomyopathy admission to intensive care unit. With headache, neck stiffness, sepsis, concern for possible meningitis. R side sinusitis. (2) Hypertensive urgency: BP with improvement, but suboptimally controlled. Continue labetalol, clonidine. Resume amlodipine. Minoxidil. Hypertension tachycardia 178/88 blood pressure, heart rates 108-132. Received labetalol. At risk of hemodynamic compromise with severe underlying LVH. Mild cardiomegaly noted on review of chest x-ray, CT abdomen pelvis. Previously pericardial effusion, but I do not see [address] abdomen pelvis this time. Admission to intensive care unit given severe risk of hemodynamic compromise. Continue labetalol, resume clonidine. Esmolol drip if needed. (3) Urinary tract infection: Improving. Continue antibiotic coverage with ceftriaxone, follow-up urine culture, so far more than 100,000 gram-negative rods. Complicated urine tract infection with sepsis, encephalopathy. Recurrent urinary tract infection in the past mostly with E. coli. 1 pseudomonal. I do not see record of ESBL infection on review of cultures. Follow-up urine culture, blood culture. (4) ESRD (end stage renal disease): Discussed with chief digital media officer, reviewed note, dialysis today. Last week she did have dialysis 3 days in a row Tuesday. Appreciate consultation regarding consideration of next dialysis. Normally gets it on TTS schedule. Plan Hyponatremia: With improvement. No further vomiting. Tolerating oral intake. Sodium up to 131. Dialysis today. Reassess sodium. Appears of chronic hyponatremia, slightly worse today result. Continuing on hemodialysis. Hypomagnesemia: Replaced, reviewed magnesium today 2.2. Recheck level. With severe underlying LVH, monitor on telemetry with risk of arrhythmia. Methamphetamine use disorder: Reports snorting, denies injection use. Blood cultures obtained. Growing gram-positive cocci. Follow-up. LVH: Severe concentric LVH, resume beta-jin. Smoking: Encourage cessation. Attestations 2 Medical Necessity Statement*: Continue admission for assessment management following sepsis, complicated UTI, gram-positive cocci in blood culture in a lady with history of methamphetamine use disorder, ESRD. and High MDM includes amount and/or complexity of data reviewed/ordered [ resulted lab(s)/test(s), ordered lab(s)/test(s) and other healthcare professional discussion] and described risk of complication, morbidity or mortality of management as documented Diagnoses Sepsis A41.9 Hypertensive urgency I16.0 Urinary tract infection N39.0 ESRD (end stage renal disease) N18.6
[2024-05-06] MEDS: lidocaine 2% viscous 15 ML, aluminum-mag hydrox-simethicon 30 ML, sucralfate oral liq 1 GM PO (22:29)
[2024-05-07] VITALS (8 sets, daily range): BP systolic 134–187; BP diastolic 77–96; PULSE 77–89; RESP 15–20; TEMP 36.4–36.9; O2SAT 95–97
[2024-05-07] MEDS: vancomycin 1,000 MG in sodium chloride 0.9% 250 ML 250 MG IV (00:14)
[2024-05-07] MEDS: cefTRIAXone 2,000 mg SDV 2000 MG IVP ×2 (03:04→16:37)
[2024-05-07] MEDS: water for injection-sterile 20 ML (03:12)
[2024-05-07 04:51] LABS: Basophils % 0.4 %; Eosinophils # 0.2 10^3/uL (0.0-0.8); Eosinophils % 2.2 %; Hematocrit 27.4 % (36-47); Lymphocytes # 1.2 10^3/uL (0.8-4.8); Lymphocytes % 11.4 %; Mean Corpuscular HGB Conc 33.2 g/dL (30-55); Mean Corpuscular Hemoglobin 32.7 pg (27-33); Mean Corpuscular Volume 98.6 fl (85-98); Mean Platelet Volume 11.9 fL (7.4-10.4); Monocytes # 1.7 10^3/uL (0.2-0.9); Monocytes % 15.9 %; Neutrophils # 7.22 10^3/uL (1.8-7.7); Neutrophils % 69.6 %; Nucleated Red Blood Cells % 0 %; Platelet Count 98 10^3/cmm (157-399); Red Blood Count 2.78 10^6/uL (3.85-5.65); Red Cell Distribution Width 14.4 % (12.1-15.1); White Blood Count 10.37 10^3/uL (3.29-11.43)
[2024-05-07 05:03] LABS: Alanine Aminotransferase 15 U/L (0-33); Albumin Level 3.4 g/dL (3.5-5.2); Alkaline Phosphatase 114 U/L (35-105); Aspartate Amino Transferase 16 U/L (0-32); Blood Urea Nitrogen 30 mg/dL (6-20); Calcium 8.8 mg/dL (8.5-10.5); Carbon Dioxide 24 mmol/L (22-29); Chloride 100 mmol/L (98-107); Creatinine Clr Calc Pharmacy 11.9203; Globulin 3.3 g/dL (1.3-4.6); Glomerular Filtration Rate 6.4 mL/min (90-130); Glucose 94 mg/dL (65-115); Magnesium 2.4 mg/dL (1.7-2.3); Osmolality Calculated 294 mOsm/kg (285-295); Sodium 139 mmol/L (136-145); Total Bilirubin 0.2 mg/dL (0.15-1.2); Total Protein 6.7 g/dL (6.6-8.7)
[2024-05-07 08:43] LABS: Vancomycin Random 30.2 ug/mL (20.0-40.0)
--- NOTE | 2024-05-07 09:03 | P.PN_ITS ---
Subjective 2 Subjective: pt upset Medications: Reviewed: Yes Vitals/I&O/Wt Last Vital Signs Temp 98.1 F 05/07/24 08:00 Pulse 89 05/07/24 08:00 Resp 20 H 05/07/24 08:00 BP 134/87 05/07/24 08:00 Pulse Ox 97 05/07/24 08:00 O2 Del Method Room Air 05/07/24 08:00 O2 Flow Rate 4 05/06/24 04:30 05/06/24 05/07/24 05/07/24 22:59 06:59 14:59 Intake Total 596 / 832 510 / 1342 Balance 596 / 832 510 / 1342 Weight last 48 hrs Weight 96.797 kg Weight 97.069 kg Weight 96.797 kg Weight 90.718 kg Physical Exam 2 Narrative: Patient is awake alert no distress HEENT S1-S2 regular rate and rhythm per report Lungs clear per report No pedal edema Data 05/07/24 04:03 05/07/24 04:03 Micro: Microbiology 05/05/24 12:40 Blood Culture - Preliminary Blood Staphylococcus aureus 05/05/24 12:37 Blood Culture - Preliminary Blood Staphylococcus aureus 05/05/24 12:44 Urine Culture - Preliminary Urine,Clean Catch Gram Negative Rods A&P Assessment and plan (1) ESRD (end stage renal disease): Plan 1. End-stage renal disease: On TTS schedule as outpatient, s/p HD yesterday , next HD tomorrow 2. History of hypertension: Blood pressure elevated, resume home medications, and should improve with ultrafiltration with HD 3. Anemia: Will order MALGORZATA with HD 4. Enterocolitis: Management per primary team 5. E. coli UTI 6. Amphetamine use history Patient evaluated using audiovisual cart. Time spent 40 minutes. Attestations 2 Medical Necessity Statement*: per silvestre Coding Level of Care Code Acute Code for Chg Fwd Diagnoses ESRD (end stage renal disease) N18.6
[2024-05-07] MEDS: labetalol 200 mg Tablet 300 MG PO ×2 (09:08→16:36)
[2024-05-07] MEDS: diphenhydrAMINE 25 mg Capsule PO (09:09)
[2024-05-07] MEDS: lidocaine 5% Patch 1 PATCH TOPICAL (09:09)
[2024-05-07] MEDS: minoxidil 10 mg Tablet PO ×2 (09:09→16:36)
[2024-05-07] MEDS: amlodipine 10 mg Tablet PO (09:09)
[2024-05-07] MEDS: ALPRAZolam 0.5 mg Tablet PO ×2 (09:09→16:36)
[2024-05-07] MEDS: nicotine 21 mg Patch 1 PATCH TRANSDERMA (09:09)
[2024-05-07] MEDS: potassium chloride ER 20 mEq Tablet PO (09:09)
--- NOTE | 2024-05-07 10:22 | PC.SOCIAL ---
IMM Update pg 2 of IMM updated and reviewed w/ patient. Copy provided and copy dated, initialed and placed in chart.
--- NOTE | 2024-05-07 12:44 | P.PN_ITS ---
Subjective 2 Subjective: History and physical reviewed. Patient is distressed because she has so much to do at home. She does not admit any IV drug use. She states she uses methamphetamine but inhales it. Concerned about not producing as much urine here in the hospital. Recently was concerned with infection or spider bite left ear for which she was taking some antibiotics at home for from a friend. Medications: Reviewed: Yes Vitals/I&O/Wt Last Vital Signs Temp 98.1 F 05/07/24 08:00 Pulse 89 05/07/24 08:00 Resp 20 H 05/07/24 08:00 BP 134/87 05/07/24 08:00 Pulse Ox 97 05/07/24 08:00 O2 Del Method Room Air 05/07/24 08:00 O2 Flow Rate 4 05/06/24 04:30 05/06/24 05/07/24 05/07/24 22:59 06:59 14:59 Intake Total 596 / 832 510 / 1342 120 / 120 Balance 596 / 832 510 / 1342 120 / 120 Weight last 48 hrs Weight 96.797 kg Weight 97.069 kg Weight 96.797 kg Physical Exam 2 Narrative: General exam no distress. No evidence of abscess around the ear. Neck is supple Cardiovascular regular rate and rhythm Lungs clear Abdomen is soft Extremities no cyanosis clubbing or edema, graft or fistula left upper extremity with thrill and bruit, no overlying erythema. Data 05/07/24 04:03 05/07/24 04:03 Micro: Microbiology 05/05/24 12:44 Urine Culture - Final Urine,Clean Catch Escherichia coli 05/05/24 12:40 Blood Culture - Preliminary Blood Staphylococcus aureus 05/05/24 12:37 Blood Culture - Preliminary Blood Staphylococcus aureus A&P Assessment and plan (1) Sepsis: Resolved. White count normal. Blood is grown Staph aureus, on screen consistent with MRSA. Grew E. coli from urine, sensitive to ceftriaxone. Transthoracic echo pending Platelets 98,000 Has methamphetamine use disorder. CT head with incidentally noted right sided sinusitis. At this point continuing vancomycin and Rocephin. Vancomycin troughs, with dosing following dialysis, pharmacy as well as myself for follow-up on levels. Lumbar puncture was attempted last night by ER physician but could not be obtained. All neck pain and headache have gone away Sepsis complicated by significant tachycardia, hypotension, acute encephalopathy with lethargy. With underlying ESRD, with labile hypertension, with severe tachycardia and underlying severe hypertrophic cardiomyopathy admission to intensive care unit. Infectious disease consult secondary to bacteremia, potential need for 6 weeks of outpatient IV antibiotics. This might be coordinated with nephrology. Repeat blood cultures ordered (2) Hypertensive urgency: Significantly improved. Patient with history of significant hypertension at home. Certainly methamphetamine may play a role as well. At this point continue Norvasc, clonidine, labetalol, minoxidil (3) Urinary tract infection: Improving. As E. coli, sensitive to ceftriaxone Complicated urine tract infection with sepsis, encephalopathy. Currently improved (4) ESRD (end stage renal disease): Received dialysis yesterday. Planning hemodialysis tomorrow. Discontinue ketorolac Last week she did have dialysis 3 days in a row Tuesday. Appreciate consultation regarding consideration of next dialysis. Normally gets it on TTS schedule. Appreciate nephrology consultation Plan Hyponatremia: Resolved currently Hypomagnesemia: Resolved Hypokalemia, cautious replacement Methamphetamine use disorder: Reports snorting, denies injection use. Discharge planning to follow-up with outpatient resources. Encouraged stopping use LVH: Severe concentric LVH, continue beta-jin. Smoking: Encourage cessation. Attestations 2 Medical Necessity Statement*: Needs continued hospitalization secondary to bacteremia with Staph aureus. Diagnoses Sepsis A41.9 Hypertensive urgency I16.0 Urinary tract infection N39.0 ESRD (end stage renal disease) N18.6 Time Spent (min) 23
--- NOTE | 2024-05-07 20:25 | USCV_ITS ---
Debo Little Age: 33 Gender: F : 1990 Exam Date: 05/07/2024 13:59 Ordering Phys: Ralph Carter MD Technologist: Exam Location: [facility] [place]: ? veg htn BP: 145 / 87 HR: 77 Rhythm: Sinus Technical Quality: Adequate MEASUREMENTS (Male / Female) Normal Values 2D ECHO LV Diastolic Diameter PLAX 4.3 cm 4.2 - 5.9 / 3.9 - 5.3 cm IVS Diastolic Thickness 2.6 cm 0.6 - 1.0 / 0.6 - 0.9 cm IVS Systolic Thickness 3.0 cm LVPW Diastolic Thickness 2.1 cm 0.6 - 1.0 / 0.6 - 0.9 cm LVPW Systolic Thickness 2.7 cm LVOT Diameter 2.0 cm LV Ejection Fraction 2D Teich 81.4 % LV Ejection Fraction MOD 4C 59.8 % LV Ejection Fraction MOD 2C 78.0 % LV Ejection Fraction 2C AL 79.1 % LA Diameter 4.1 cm RA Systolic Volume 4C AL 122.1 ml RA Systolic Volume 4C MOD 117.3 ml IVC Diameter 1.5 cm M-MODE LA Ao Ratio MM 1.6 AV Cusp Separation MM 2.8 cm DOPPLER AV Peak Velocity 194.0 cm/s LVOT Peak Velocity 147.0 cm/s AV Area Cont Eq vti 3.1 cm squared AV Area Cont Eq pk 2.5 cm squared MV Peak Velocity 154.0 cm/s MV Area PHT 4.1 cm squared Mitral E to A Ratio 1.1 TR Peak Velocity 279.0 cm/s TR Peak Gradient 31.1 mmHg TV Peak E Velocity 133.0 cm/s Right Atrial Pressure 3.0 mmHg Pulmonary Artery Systolic Pressu 34.1 mmHg PV Peak Velocity 175.0 cm/s FINDINGS Left Ventricle Left ventricle is normal size. LV systolic function is normal with EF of 60-65%. No regional wall motion normalities are seen. Severe concentric left ventricular hypertrophy. Right Ventricle Normal in size and function Right Atrium Normal in size Left Atrium Dilated Mitral Valve Mild mitral annular calcification. Mild mitral regurgitation. Mild mitral stenosis with mean gradient of 5mmHg. Aortic Valve Structurally normal aortic valve. No significant stenosis or regurgitation. Tricuspid Valve Mild tricuspid regurgitation. RVSP is 35 to 40 mmHg. Mild pulmonary hypertension. Pulmonic Valve Not well visualized Pericardium Trace pericardial effusion. Aorta Normal IVC Appears to be normal CONCLUSIONS LV systolic function is normal with EF of 60-65% Severe concentric left ventricular hypertrophy Severely dilated left atrium Mild mitral annular calcification. Mild mitral regurgitation. Mild mitral stenosis with mean gradient of 5mmHg. Mild tricuspid regurgitation Mild pulmonary pretension Trace pericardial effusion Compared to prior echocardiogram from 2021, patient has mild mitral stenosis, LV EF has improved, mild pulmonary hypertension seen. Nahid Ervin MD (Electronically Signed) Final Date: 07 May 2024 17:06 S
[2024-05-07] MEDS: zolpidem 5 mg Tablet PO (21:57)
[2024-05-08] VITALS (8 sets, daily range): BP systolic 129–193; BP diastolic 66–113; PULSE 81–88; RESP 16–17; TEMP 36.5–37.1; O2SAT 93–98
[2024-05-08] MEDS: cefTRIAXone 2,000 mg SDV 2000 MG IVP (04:00)
[2024-05-08 05:14] LABS: Basophils # 0.1 10^3/uL (0.0-0.1); Basophils % 0.5 %; Eosinophils # 0.3 10^3/uL (0.0-0.8); Eosinophils % 3.7 %; Hematocrit 28.3 % (36-47); Lymphocytes # 1.5 10^3/uL (0.8-4.8); Lymphocytes % 15.8 %; Mean Corpuscular HGB Conc 32.9 g/dL (30-55); Mean Corpuscular Hemoglobin 32.5 pg (27-33); Mean Platelet Volume 11.1 fL (7.4-10.4); Monocytes # 1.2 10^3/uL (0.2-0.9); Monocytes % 13.2 %; Neutrophils # 6.01 10^3/uL (1.8-7.7); Neutrophils % 65.3 %; Nucleated Red Blood Cells % 0 %; Platelet Count 151 10^3/cmm (157-399); Red Blood Count 2.86 10^6/uL (3.85-5.65); Red Cell Distribution Width 14.2 % (12.1-15.1); White Blood Count 9.22 10^3/uL (3.29-11.43)
[2024-05-08 05:35] LABS: Alanine Aminotransferase 14 U/L (0-33); Albumin Level 3.3 g/dL (3.5-5.2); Alkaline Phosphatase 112 U/L (35-105); Anion Gap 18.2 (5-19); Aspartate Amino Transferase 12 U/L (0-32); Blood Urea Nitrogen 34 mg/dL (6-20); Calcium 8.8 mg/dL (8.5-10.5); Carbon Dioxide 19 mmol/L (22-29); Chloride 101 mmol/L (98-107); Creatinine Clr Calc Pharmacy 10.8601; Globulin 3.5 g/dL (1.3-4.6); Glomerular Filtration Rate 5.8 mL/min (90-130); Glucose 95 mg/dL (65-115); Osmolality Calculated 287 mOsm/kg (285-295); Potassium 3.2 mmol/L (3.5-5.1); Sodium 135 mmol/L (136-145); Total Bilirubin 0.2 mg/dL (0.15-1.2); Total Protein 6.8 g/dL (6.6-8.7)
--- NOTE | 2024-05-08 08:35 | PC.HD ---
Heparin 1000 units loading dose administered via venous needle of LAVG at 0820 per coroner's juror's orders. Patient at first refusing treatment; then agreed.
--- NOTE | 2024-05-08 09:08 | P.PN_ITS ---
Subjective 2 Subjective: getting hD Medications: Reviewed: Yes Vitals/I&O/Wt Last Vital Signs Temp 98.4 F 05/08/24 08:34 Pulse 85 05/08/24 08:34 Resp 16 05/08/24 08:34 BP 193/104 05/08/24 08:34 Pulse Ox 93 05/08/24 07:52 O2 Del Method Room Air 05/08/24 07:52 O2 Flow Rate 4 05/06/24 04:30 05/07/24 05/08/24 05/08/24 22:59 06:59 14:59 Intake Total 840 / 960 240 / 1200 Balance 840 / 960 240 / 1200 Weight last 48 hrs Weight 86.183 kg Weight 96.797 kg Physical Exam 2 Narrative: Patient is awake alert no distress HEENT S1-S2 regular rate and rhythm per report Lungs clear per report No pedal edema Data 05/08/24 05:04 05/08/24 05:04 Micro: Microbiology 05/07/24 14:25 Blood Culture - Preliminary Blood SPECIMEN COLLECTED 05/07/24 14:21 Blood Culture - Preliminary Blood SPECIMEN COLLECTED 05/05/24 12:44 Urine Culture - Final Urine,Clean Catch Escherichia coli A&P Assessment and plan (1) ESRD (end stage renal disease): Plan 1. End-stage renal disease: On TTS schedule as outpatient, HD today 2. History of hypertension: Blood pressure elevated, adjust medications- add losartan and Hydralazine ., and should improve with ultrafiltration with HD 3. Anemia: Will order MALGORZATA with HD 4. Enterocolitis: Management per primary team 5. E. coli UTI 6. Amphetamine use history Patient evaluated using audiovisual cart. Time spent 40 minutes. Attestations 2 Medical Necessity Statement*: per silvestre Coding Level of Care Code Acute Code for Chg Fwd Diagnoses ESRD (end stage renal disease) N18.6
[2024-05-08] MEDS: hyDRALAzine 20 mg/mL INJ 1 mL 10 MG IVP (09:24)
[2024-05-08] MEDS: amlodipine 10 mg Tablet PO (09:24)
[2024-05-08] MEDS: ALPRAZolam 0.5 mg Tablet PO ×2 (09:24→20:30)
[2024-05-08] MEDS: labetalol 200 mg Tablet 300 MG PO ×2 (09:24→16:57)
[2024-05-08] MEDS: nicotine 21 mg Patch 1 PATCH TRANSDERMA (09:24)
[2024-05-08] MEDS: minoxidil 10 mg Tablet PO ×2 (09:24→16:58)
[2024-05-08] MEDS: lidocaine 5% Patch 1 PATCH TOPICAL (09:25)
[2024-05-08] MEDS: heparin, porcine 1,000 unit/mL INJ 10 mL 10000 UNIT INTRACATH (09:30)
[2024-05-08] MEDS: diphenhydrAMINE 25 mg Capsule PO (09:38)
[2024-05-08] MEDS: losartan 50 mg Tablet PO (09:38)
[2024-05-08] MEDS: hyDRALAzine 50 mg Tablet PO ×3 (09:38→20:30)
[2024-05-08 10:36] LABS: Vancomycin Random 24.6 ug/mL (20.0-40.0)
--- NOTE | 2024-05-08 12:19 | P.PN_ITS ---
Subjective 2 Subjective: Reports she is doing okay. Wanting to go home relatively soon. No particular complaints. Medications: Reviewed: Yes Vitals/I&O/Wt Last Vital Signs Temp 98.4 F 05/08/24 08:34 Pulse 85 05/08/24 08:34 Resp 16 05/08/24 08:34 BP 174/113 05/08/24 09:38 Pulse Ox 93 05/08/24 07:52 O2 Del Method Room Air 05/08/24 07:52 O2 Flow Rate 4 05/06/24 04:30 05/07/24 05/08/24 05/08/24 22:59 06:59 14:59 Intake Total 840 / 960 240 / 1200 Balance 840 / 960 240 / 1200 Weight last 48 hrs Weight 86.183 kg Weight 96.797 kg Physical Exam 2 Narrative: General exam no distress. Neck is supple Cardiovascular regular rate and rhythm Lungs clear Abdomen is soft Extremities no cyanosis clubbing or edema, graft or fistula left upper extremity with thrill and bruit, no overlying erythema. Data 05/08/24 05:04 05/08/24 05:04 Micro: Microbiology 05/05/24 12:40 Blood Culture - Final Blood Methicillin Resis Staph Aureus 05/05/24 12:37 Blood Culture - Final Blood Methicillin Resis Staph Aureus 05/07/24 14:25 Blood Culture - Preliminary Blood SPECIMEN COLLECTED 05/07/24 14:21 Blood Culture - Preliminary Blood SPECIMEN COLLECTED 05/05/24 12:44 Urine Culture - Final Urine,Clean Catch Escherichia coli A&P Assessment and plan (1) Sepsis: Resolved. White count normal. Blood is grown Staph aureus, on screen consistent with MRSA. Grew E. coli from urine, sensitive to ceftriaxone. Transthoracic echo pending Platelets 98,000 Has methamphetamine use disorder. CT head with incidentally noted right sided sinusitis. At this point continuing vancomycin and Rocephin. Vancomycin troughs, with dosing following dialysis, pharmacy as well as myself for follow-up on levels. Lumbar puncture was attempted by ER physician but could not be obtained. All neck pain and headache have gone away Sepsis complicated by significant tachycardia, hypotension, acute encephalopathy with lethargy. With underlying ESRD, with labile hypertension, with severe tachycardia and underlying severe hypertrophic cardiomyopathy . Infectious disease consult secondary to bacteremia, potential need for 6 weeks of outpatient IV antibiotics. This might be coordinated with nephrology. Repeat blood cultures ordered Discussed briefly with ID. Arrange for transesophageal echo. Transthoracic demonstrated some mitral stenosis. This is new. LVH also noted. EF preserved. (2) Hypertensive urgency: Significantly improved. Patient with history of significant hypertension at home. Certainly methamphetamine may play a role as well. At this point continue Norvasc, clonidine, labetalol, minoxidil (3) Urinary tract infection: Improving. As E. coli, sensitive to ceftriaxone Complicated urine tract infection with sepsis, encephalopathy. Currently improved (4) ESRD (end stage renal disease): Receiving dialysis today Is on a Tuesday schedule Appreciate nephrology consultation Plan Hyponatremia: Resolved currently Hypomagnesemia: Resolved Hypokalemia Methamphetamine use disorder: Reports snorting, denies injection use. Discharge planning to follow-up with outpatient resources. Encouraged stopping use LVH: Severe concentric LVH, continue beta-jin. Smoking: Encourage cessation. Attestations 2 Medical Necessity Statement*: Needs continued hospital staff for further delineation of MRSA bacteremia with transesophageal echo likely which will be done tomorrow. Diagnoses Sepsis A41.9 Hypertensive urgency I16.0 Urinary tract infection N39.0 ESRD (end stage renal disease) N18.6 Time Spent (min) 24
[2024-05-08] MEDS: cefTRIAXone 1,000 mg SDV 1000 MG IVP (13:31)
[2024-05-08] MEDS: water for injection-sterile SDV 10 mL IVP (13:40)
--- NOTE | 2024-05-08 15:59 | P.CONIM_ITS ---
Providers/Reason For Consult 2 Consulting Physician/Specialty*: Shayla Clark MD/ Infectious Disease Reason for Consult*: MRSA bacteremia Requesting Physician: Mahendra Bowman MD Attending Physician: Mahendra Bowman MD Primary Care Provider: Laurent Wolfe MD History of Present Illness History of Present Illness Debo Little is a 33 year old female with end-stage renal disease currently undergoing hemodialysis Tuesday via left AV fistula/graft. Notable past medical history of substance abuse, systolic congestive heart failure, history of hepatitis C, history of pericardial effusion and ischemic bowel in 2020. Autoimmune workup was negative at the time at [facility]. She has had several visits to the hospital for hypertensive urgency. She denies any past history of endocarditis. She is currently admitted to the hospital since May 13, 2024 after presenting with generalized feeling of being unwell, headache, recent history of spider bite over the left ear. She was febrile to 101.1 Fahrenheit, tachycardic tachypneic and hypertensive. Leukocytosis of 17,000 and was admitted to the hospital for further care. U tox was positive for amphetamines. CT abdomen and pelvis showed possible enterocolitis, however no clinical compatible symptoms of the same. Eventually infectious workup returned with positive blood cultures from May 05, 2024. Subsequently blood cultures obtained on May 07 to a certain clearance. Patient denies any past history of endocarditis. No prior history of staph bacteremia. At the time of assessment today she is undergoing dialysis. Denies any specific complaints to me at this time. Denies any chest pain dyspnea palpitations. Denies any nausea vomiting or diarrhea at this time. Review of Systems 2 General: Reports: 10 or more systems reviewed and unremarkable except in HPI and below Const: Denies: fever(s), chills or body aches Eyes: Denies: change in vision, blurry vision or photophobia ENMT: Reports: hoarseness; Denies: throat pain, enlarged tonsils, odynophagia or nasal congestion Card: Denies: chest pain, palpitations, irregular heart rhythm, edema, swelling of feet/ankles, lightheadedness, pre-syncope, dyspnea on exertion or orthopnea Resp: Denies: dyspnea, productive cough, non-productive cough, wheezing, stridor, pain on inspiration, change in phlegm color, hemoptysis or chest congestion GI: Denies: abdominal pain, nausea, vomiting, hematemesis, coffee ground emesis, dysphagia, heartburn, diarrhea, constipation, GI cramping, change in stool character, hematochezia or melena : Denies: flank pain, difficulty voiding, dysuria, urinary frequency, urinary urgency, urinary hesitancy or hematuria Musc: Denies: neck pain, back pain, extremity pain, joint swelling, joint warmth or deformity Neuro: Denies: headache(s), numbness in extremities, weakness in extremities, sensory changes, difficulty walking, frequent falls, dizziness, vertigo, behavioral changes, Slurred speech present or seizure-like activity Psych: Denies: anxiety, depression, suicidal ideation or homicidal ideation Endo: Denies: polyuria, polydipsia, tired all the time, cold intolerance or hot flashes Bhavin/Lymph: Denies: easy bruising or easy bleeding Medications/Allergies Home Medications Medication Instructions Recorded Confirmed Last Taken Type dicyclomine 10 mg capsule 10 mg PO TID PRN Cramps 05/08/21 05/05/24 05/04/24 09:00 History docusate sodium 100 mg capsule 100 mg PO BID 11/10/21 05/05/24 05/04/24 09:00 History acetaminophen 500 mg tablet 500 - 1,000 mg PO Q6H PRN Pain 02/19/22 05/07/24 Unknown History aspirin 325 mg tablet 325 mg PO . DIRECTED 02/19/22 05/07/24 Unknown History clonidine HCl 0.1 mg tablet See Rx Instructions .Route .COMPLEX 02/19/22 05/05/24 Unknown History isosorbide mononitrate 120 mg 120 mg PO DAILY 02/19/22 05/05/24 05/04/24 09:00 History tablet,extended release 24 hr melatonin 10 mg tablet 10 mg PO BEDTIME PRN Sleep 02/19/22 05/07/24 Unknown History amlodipine 10 mg tablet 10 mg PO DAILY 05/05/24 05/05/24 05/04/24 09:00 History bumetanide 1 mg tablet 1 mg PO DIRECTED 05/05/24 05/05/24 05/04/24 09:00 History cholecalciferol (vitamin D3) 50 50 mcg PO DAILY 05/05/24 05/05/24 05/04/24 09:00 History mcg (2,000 unit) capsule labetalol 200 mg tablet 200 mg PO BID 05/05/24 05/05/24 05/04/24 09:00 History losartan 50 mg tablet 50 mg PO BEDTIME 05/05/24 05/05/24 Unknown History metolazone 5 mg tablet 5 mg PO EVERY OTHER DAY 05/05/24 05/05/24 Unknown History minoxidil 10 mg tablet 10 mg PO BID 05/05/24 05/05/24 05/04/24 09:00 History Allergies Allergy/AdvReac Type Severity Reaction Status Date / Time No Known Allergies Allergy Verified 02/02/22 13:54 Current Medications Generic Name Dose Route Start Last Admin Trade Name Freq PRN Reason Stop Dose Admin Alprazolam 0.5 mg 05/06/24 11:53 05/07/24 16:36 Alprazolam 0.5 Mg Tablet PO 0.5 mg TID PRN Administration ANXIETY Amlodipine Besylate 10 mg 05/07/24 09:00 05/07/24 09:09 Amlodipine 10 Mg Tablet PO 10 mg DAILY GENNY Administration Ceftriaxone Sodium 2,000 mg 05/05/24 16:00 05/07/24 16:37 Ceftriaxone 2,000 Mg Sdv IVP 2,000 mg Q12H GENNY Administration Protocol Clonidine HCl 1 patch 05/05/24 16:00 05/05/24 16:18 Clonidine 0.3 Mg/24 Hr Patch TRANSDERMA 1 patch Q7D GENNY Administration Labetalol HCl 300 mg 05/05/24 18:00 05/07/24 16:36 Labetalol 200 Mg Tablet PO 300 mg BID GENNY Administration Lidocaine 1 patch 05/06/24 11:59 05/07/24 09:09 Lidocaine 5% Patch TOPICAL 1 patch [id number] GENNY Administration Minoxidil 10 mg 05/07/24 09:00 05/07/24 16:36 Minoxidil 10 Mg Tablet PO 10 mg BID GENNY Administration Nicotine 1 patch 05/06/24 09:00 05/07/24 09:09 Nicotine 21 Mg Patch TRANSDERMA 1 patch DAILY GENNY Administration PFSH Acute 2 PFSH: Medical History Methamphetamine abuse Posterior reversible encephalopathy syndrome White matter disease HCV (hepatitis C virus) on mayvert Acute kidney failure Ischemic bowel disease CHF (congestive heart failure), NYHA class III Resistant hypertension Pericardial effusion CKD (chronic kidney disease) Cardiomyopathy EF- 48% with mod LVH, grade 1 diastolic dysfunction Hypertension LVH (left ventricular hypertrophy) Methamphetamine abuse Substance abuse Surgical History Status post biopsy of kidney Status post insertion of hemodialysis catheter S/P cholecystectomy Family History Other CAD (coronary artery disease) Hypertension Social History Smoking and tobacco/nicotine status: current every day tobacco/nicotine user cigarettes Packs smoked per day: 0.5 Alcohol intake: never Substance/Drug Use: former Date of last use: Quit using last year Household members: family and other Details: Lives with mother Housing: House Marital status: Single Current occupational status: unemployed Current gender identity: Female Vitals/I&O/Wt Last Vital Signs Temp 98.2 F 05/07/24 16:00 Pulse 79 05/07/24 16:00 Resp 17 05/07/24 16:00 BP 187/96 05/07/24 16:00 Pulse Ox 97 05/07/24 16:00 O2 Del Method Room Air 05/07/24 16:00 O2 Flow Rate 4 05/06/24 04:30 05/07/24 05/07/24 05/07/24 06:59 14:59 22:59 Intake Total 510 / 1342 120 / 120 Balance 510 / 1342 120 / 120 Weight last 48 hrs Weight 96.797 kg Weight 97.069 kg Weight 96.797 kg Physical Exam 2 Narrative: General: No acute distress, AO x3, prefers to sleep, she has just received Benadryl, however wakes up easily to calling name and able to have a conversation HEENT: PERRLA, pupils bilaterally equal and reactive, pallors not present Chest: Normal vesicular breath sounds, no added sounds, equal good air entry bilaterally CVS: S1-S2 regular, no murmurs, no tachycardia, no gallops, no rubs Abdomen: Soft, nontender, no organomegaly, bowel sounds present Neuro: No focal deficits, no facial deformity, AO x3, power 5/5 in all limbs Extremities: No obvious signs of cellulitis over left arm near site of AV fistula Data 05/08/24 05:04 05/08/24 05:04 Micro: Microbiology 05/07/24 14:25 Blood Culture - Preliminary Blood SPECIMEN COLLECTED 05/07/24 14:21 Blood Culture - Preliminary Blood SPECIMEN COLLECTED 05/05/24 12:44 Urine Culture - Final Urine,Clean Catch Escherichia coli Other data: [id number] LOC: [facility] #: [id number] AGE/SX: 33/F ROOM: 255 R E05/05/[address]: Mahendra Bowman MD : 1990 BED: 2 D IS: FAX #: STATUS: ADM IN OC: Spec #: [id number] Beth: 05/05/24-1244 Status: COMP Req #: [id number] Recd: 05/05/24-[address]: New Cassidy DO Src: Urine CC SpDesc: Ordered: Procedure Result Verified Site Urine Culture Final 05/07/24-1136 Organism 1 Escherichia coli [place] Count >100,000 CFU/ml DAY 2 E coli M.I.C. RX --------- ------ * Amikacin <=16 S * Amoxicillin/Clavulanate <=8/4 S * Ampicillin >16 R * Ampicillin/Sulbactam >16/8 R * Aztreonam <=4 S * Cefepime <=8 S * Ceftriaxone <=1 S * Cefuroxime 16 I * Ciprofloxacin <=1 S * Gentamicin <=2 S * Imipenem <=1 S * Levofloxacin <=2 S * Nitrofurantoin <=32 S * Tetracycline >8 R * Trimethoprim/Sulfamethoxazole >2/38 R * Piperacillin/Tazobactam <=16 S Urine Culture Preliminary (changed) 05/06/24-09 Organism 1 Gram Negative Rods [place] Count >100,000 CFU/ml DAY 1, RESULTS TO FOLLOW NAME: Debo Little LOC: [facility] U #: [id number] AGE/SX: 33/F ROOM: 255 R E05/05/[address]: Mahendra Bowman MD : 1990 BED: 2 D IS: FAX #: STATUS: ADM IN TLOC: Spec #: [id number] Beth: 05/07/24-5 Status: RES Req #: [id number] Recd: 05/07/24-[address]: Mahendra Bowman MD Src: Blood SpDesc: Ordered: Bcult Procedure Result Verified Site Blood Culture Preliminary 05/08/24 NEGATIVE TO DATE Blood Culture Preliminary (changed) 05/07/24-1437 SPECIMEN COLLECTED NAME: Debo Little [facility] #: [id number] LOC: [facility] #: [id number] AGE/SX: 33/F ROOM: [facility] R E05/05/[address]: Mahendra Bowman MD : 1990 BED: 2 D IS: FAX #: STATUS: ADM IN TLOC: Spec #: [id number] Beth: 05/05/24-1244 Status: COMP Req #: [id number] Recd: 05/05/24-[address]: New Cassidy DO Src: Urine CC SpDesc: Ordered: UC Procedure Result Verified Site Urine Culture Final 05/07/24-1136 Organism 1 Escherichia coli [place] Count >100,000 CFU/ml DAY 2 E coli M.I.C. RX --------- ------ * Amikacin <=16 S * Amoxicillin/Clavulanate <=8/4 S * Ampicillin >16 R * Ampicillin/Sulbactam >16/8 R * Aztreonam <=4 S * Cefepime <=8 S * Ceftriaxone <=1 S * Cefuroxime 16 I * Ciprofloxacin <=1 S * Gentamicin <=2 S * Imipenem <=1 S * Levofloxacin <=2 S * Nitrofurantoin <=32 S * Tetracycline >8 R * Trimethoprim/Sulfamethoxazole >2/38 R * Piperacillin/Tazobactam <=16 S Urine Culture Preliminary (changed) 05/06/24-48 Organism 1 Gram Negative Rods [place] Count >100,000 CFU/ml DAY 1, RESULTS TO FOLLOW NAME: Debo Little LOC: [facility] U #: [id number] AGE/SX: 33/F ROOM: 255 R E05/05/[address]: Mahendra Bowman MD : 1990 BED: 2 D IS: FAX #: STATUS: ADM IN TLOC: Spec #: [id number] Beth: 05/05/24 Status: COMP Req #: [id number] Recd: 05/05/24-[address]: New Cassidy DO Src: Blood SpDesc: Ordered: Bcult Procedure Result Verified Site Blood Culture Final 05/08/24-114 4 OF 4 BOTTLES POSITIVE GRAM STAIN: GRAM POS COCCI IN CLUSTERS SEEN IDENTIFICATION BY DIRECT PCR Detection of mecA indicates presence of Methicillin Resistant Staphylococcus spp. SENSITIVITIES ON [id number] Organism 1 Methicillin Resis Staph Aureus Growth 4 BOTTLES Gram Stain Charge Charge for Gram Stain CRITICAL RESULT YES/NO: YES CRITICAL CALLED BY: Jeromy HENLEY AND READ BACK BY: KANDIS DATE: 05/06/24 TIME: 312 Blood Culture Preliminary (changed) 05/06/24-1159 2 OF 4 BOTTLES POSITIVE GRAM STAIN: GRAM POS COCCI IN CLUSTERS SEEN IDENTIFICATION BY DIRECT PCR Detection of mecA indicates presence of Methicillin Resistant Staphylococcus spp. RESULTS TO FOLLOW Organism 1 Staphylococcus aureus Growth 2 BOTTLES Gram Stain Charge Charge for Gram Stain CRITICAL RESULT YES/NO: YES CRITICAL CALLED BY: V TO AND READ BACK BY: PALAM DATE: 05/06/24 TIME: 312 Blood Culture Preliminary (changed) 05/06/24-312 2 OF 4 BOTTLES POSITIVE GRAM STAIN: GRAM POS COCCI IN CLUSTERS SEEN RESULTS TO FOLLOW CRITICAL RESULT YES/NO: YES CRITICAL CALLED BY: V TO AND READ BACK BY: PALAM DATE: 05/06/24 TIME: 312 Blood Culture Preliminary (changed) 05/05/24-1254 SPECIMEN COLLECTED NAME: Debo Little LOC: [facility] U #: [id number] AGE/SX: 33/F ROOM: [facility] E05/05/[address]: Mahendra Bowman MD : 1990 BED: 2 D IS: FAX #: STATUS: ADM IN TLOC: Spec #: [id number] Beth: 05/05/24-1236 Status: COMP Req #: [id number] Recd: 05/05/24-[address]: New Cassidy DO Src: Blood SpDesc: Ordered: Bcult Procedure Result Verified Site Blood Culture Final 05/08/24-1143 4 OF 4 BOTTLES POSITIVE GRAM STAIN: GRAM POS COCCI IN CLUSTERS SEEN IDENTIFICATION BY DIRECT PCR Detection of mecA indicates presence of Methicillin Resistant Staphylococcus spp. Organism 1 Methicillin Resis Staph Aureus Growth 4 BOTTLES Gram Stain Charge Charge for Gram Stain CRITICAL RESULT YES/NO: YES CRITICAL CALLED BY: V TO AND READ BACK BY: PALAM DATE: 05/06/24 TIME: 310 2ND CRITICAL RES YES/NO: YES 2ND CRITICAL CALLED BY: KOLBY 2ND TO AND READ BACK BY: DEYA DATE: 05/06/24 2ND CRITICAL TIME: 1158 MRSA M.I.C. RX --------- ------ * Ampicillin >8 R * Ciprofloxacin <=1 S * Clindamycin <=0.5 S * Erythromycin <=0.5 S * Gentamicin <=4 S * Levofloxacin <=1 S * Linezolid 4 S * Oxacillin >2 R * Penicillin >8 R * Rifampin <=1 S * Tetracycline <=4 S * Trimethoprim/Sulfamethoxazole <=0.5/9.5 S Vancomycin 2 S Daptomycin 1 S Date of Service: 05/05/24 Procedure(s): CT abdomen pelvis w con* 73411 CT/CT abdomen pelvis w con* [id number] IMPRESSION: Findings consistent with acute enterocolitis Stable cardiomegaly Date of Service: 05/05/24 Procedure(s): XR chest 1V portable 08306 XR/XR chest 1V portable 82415 IMPRESSION: No acute findings. Date of Service: 05/05/24 Procedure(s): CT head w con 32133 CT/CT head w con 66262 IMPRESSION: Right-sided sinusitis Date of Service: 05/07/24 Procedure(s): CV. echo complete* [id number] CONCLUSIONS LV systolic function is normal with EF of 60-65% Severe concentric left ventricular hypertrophy Severely dilated left atrium Mild mitral annular calcification. Mild mitral regurgitation. Mild mitral stenosis with mean gradient of 5mmHg. Mild tricuspid regurgitation Mild pulmonary pretension Trace pericardial effusion Compared to prior echocardiogram from 2021, patient has mild mitral stenosis, LV EF has improved, mild pulmonary hypertension seen. Date of Service: 01/09/22 Procedure(s): CV. echo limited 71126 Mitral Valve Structurally normal mitral valve without significant stenosis or prolapse. There is no mitral regurgitation or stenosis. CONCLUSIONS Severely increased left ventricular mass. Severely increased concentric wall thickness. Severely increased left ventricular diastolic volume. Severely increased left ventricular systolic volume. Mildly decreased left ventricular ejection fraction. Trace to mild pericardial effusion Date of Service: 11/12/21 Procedure(s): CV. echo lmt w color 90916/25 CONCLUSIONS 1. Normal left ventricular cavity size and systolic function. Severe concentric left ventricular hypertrophy. Left ventricular ejection fraction is estimated at 65 %. No regional wall motion abnormality. 2. Right atrial pressure estimated at 15 mmHg. 3. Pulmonary artery pressure estimated at 42 mmHg. 4. Moderate to large circumferential pericardial effusion (1.4 cm along right ventricle free wall and 2.3 cm posteriorly along left ventricle. No evidence of hemodynamic compromise based on the study. 5. No significant change in size of effusion when compared to 11/09/2021. Date of Service: 11/09/21 Procedure(s): CV. echo lmt w color 92430/25 Mitral Valve Structurally normal mitral valve. No mitral valve stenosis. Mild-moderate mitral valve regurgitation. A&P Assessment and plan (1) MRSA bacteremia: Patient admitted to the hospital on May 13, 2024 with chief complaints of generalized weakness fever tachycardia and feeling unwell. Eventually investigations in the hospital have revealed MRSA bacteremia Suspect that this is related to patient's history of drug use. U tox positive for amphetamines. No obvious swelling tenderness or cellulitic changes around the AV fistula/graft site. Does not have any replaced valves or other hardware other than a possible AV graft through which she gets dialysis. Blood culture positive on May 05, repeat culture sent from May 07, currently pending Patient is currently on treatment with ceftriaxone 2 g IV every 12 hours and vancomycin renally dosed with dialysis. No current signs or symptoms of meningitis. Headache appears to be nonspecific perhaps related to elevated blood pressure, acute infection, fever etc. Plan: Continue IV vancomycin 1 g after dialysis on Tuesday. Vancomycin dose to be checked prior to dialysis to assess for possible dose adjustment. Pharmacy managing currently. TTE makes note of mitral stenosis which appears to be a new finding. Do not see this finding on prior echocardiograms dating back to 2020. Recommend DIANE to assess for possible endocarditis given several high risk factors. Will plan on treating patient with 6 weeks of IV vancomycin to be dosed with dialysis 3 times a week. Reduce ceftriaxone dose from 2 g IV every 12 hours to 1 g IV daily for UTI. Will follow (2) Urinary tract infection: Urine culture with E. coli susceptible to ceftriaxone Reduce ceftriaxone dose from 2 g IV every 12 hours to 1 g IV every 24 hours. Would aim for short course of treatment for UTI/acute cystitis of 5 days. Qualifiers: Urinary tract infection type: acute cystitis (3) Hepatitis C: Genotype 3, per past notes appears to have taken treatment with Mavyret. Check hep C PCR for SVR. Follow up as outpatient Qualifiers: Viral hepatitis chronicity: chronic Hepatic coma status: without hepatic coma Qualified Code(s): B18.2 - Chronic viral hepatitis C Plan will follow Consult Attestations 2 Medical Necessity Statement: per admitting, iv abx , HD Coding Level of Care Code Acute Code for Chg Fwd High MDM includes number and complexity of problems actively addressed during encounter, amount and/or complexity of data reviewed/ordered and described risk of complication, morbidity or mortality of management as documented Diagnoses MRSA bacteremia R78.81; B95.62 Urinary tract infection N39.0 Urinary tract infection type: acute cystitis Chronic hepatitis C without hepatic coma B18.2 Viral hepatitis chronicity: chronic Hepatic coma status: without hepatic coma
--- NOTE | 2024-05-08 16:49 | P.CONIM_ITS ---
Providers/Reason For Consult 2 Attending Physician: Mahendra Bowman MD Primary Care Provider: Laurent Wolfe MD History of Present Illness History of Present Illness Debo Little is a 33 year old female Medications/Allergies Home Medications Medication Instructions Recorded Confirmed Last Taken Type dicyclomine 10 mg capsule 10 mg PO TID PRN Cramps 05/08/21 05/05/24 05/04/24 09:00 History docusate sodium 100 mg capsule 100 mg PO BID 11/10/21 05/05/24 05/04/24 09:00 History acetaminophen 500 mg tablet 500 - 1,000 mg PO Q6H PRN Pain 02/19/22 05/07/24 Unknown History aspirin 325 mg tablet 325 mg PO . DIRECTED 02/19/22 05/07/24 Unknown History clonidine HCl 0.1 mg tablet See Rx Instructions .Route .COMPLEX 02/19/22 05/05/24 Unknown History isosorbide mononitrate 120 mg 120 mg PO DAILY 02/19/22 05/05/24 05/04/24 09:00 History tablet,extended release 24 hr melatonin 10 mg tablet 10 mg PO BEDTIME PRN Sleep 02/19/22 05/07/24 Unknown History amlodipine 10 mg tablet 10 mg PO DAILY 05/05/24 05/05/24 05/04/24 09:00 History bumetanide 1 mg tablet 1 mg PO DIRECTED 05/05/24 05/05/24 05/04/24 09:00 History cholecalciferol (vitamin D3) 50 50 mcg PO DAILY 05/05/24 05/05/24 05/04/24 09:00 History mcg (2,000 unit) capsule labetalol 200 mg tablet 200 mg PO BID 05/05/24 05/05/24 05/04/24 09:00 History losartan 50 mg tablet 50 mg PO BEDTIME 05/05/24 05/05/24 Unknown History metolazone 5 mg tablet 5 mg PO EVERY OTHER DAY 05/05/24 05/05/24 Unknown History minoxidil 10 mg tablet 10 mg PO BID 05/05/24 05/05/24 05/04/24 09:00 History Allergies Allergy/AdvReac Type Severity Reaction Status Date / Time No Known Allergies Allergy Verified 02/02/22 13:54 Current Medications Generic Name Dose Route Start Last Admin Trade Name Freq PRN Reason Stop Dose Admin Alprazolam 0.5 mg 05/06/24 11:53 05/08/24 09:24 Alprazolam 0.5 Mg Tablet PO 0.5 mg TID PRN Administration ANXIETY Amlodipine Besylate 10 mg 05/07/24 09:00 05/08/24 09:24 Amlodipine 10 Mg Tablet PO 10 mg DAILY GENNY Administration Ceftriaxone Sodium 1,000 mg 05/08/24 10:15 05/08/24 13:31 Ceftriaxone 1,000 Mg Sdv IVP 1,000 mg Q24H GENNY Administration Protocol Clonidine HCl 1 patch 05/05/24 16:00 05/05/24 16:18 Clonidine 0.3 Mg/24 Hr Patch TRANSDERMA 1 patch Q7D GENNY Administration Hydralazine HCl 10 mg 05/07/24 17:51 05/08/24 09:24 Hydralazine 20 Mg/Ml Inj 1 Ml IVP 10 mg Q4H PRN Administration HYPERTENSION Hydralazine HCl 50 mg 05/08/24 09:00 05/08/24 09:38 Hydralazine 50 Mg Tablet PO 50 mg TID GENNY Administration Labetalol HCl 300 mg 05/05/24 18:00 05/08/24 09:24 Labetalol 200 Mg Tablet PO 300 mg BID GENNY Administration Lidocaine 1 patch 05/06/24 11:59 05/08/24 09:25 Lidocaine 5% Patch TOPICAL 1 patch [id number] GENNY Administration Losartan Potassium 50 mg 05/08/24 09:00 05/08/24 09:38 Losartan 50 Mg Tablet PO 50 mg DAILY GENNY Administration Minoxidil 10 mg 05/07/24 09:00 05/08/24 09:24 Minoxidil 10 Mg Tablet PO 10 mg BID GENNY Administration Nicotine 1 patch 05/06/24 09:00 05/08/24 09:24 Nicotine 21 Mg Patch TRANSDERMA 1 patch DAILY GENNY Administration PFSH Acute 2 PFSH: Medical History Methamphetamine abuse Posterior reversible encephalopathy syndrome White matter disease HCV (hepatitis C virus) on Acute kidney failure Ischemic bowel disease CHF (congestive heart failure), NYHA class III Resistant hypertension Pericardial effusion CKD (chronic kidney disease) Cardiomyopathy EF- 48% with mod LVH, grade 1 diastolic dysfunction Hypertension LVH (left ventricular hypertrophy) Methamphetamine abuse Substance abuse Surgical History Status post biopsy of kidney Status post insertion of hemodialysis catheter S/P cholecystectomy Family History Other CAD (coronary artery disease) Hypertension Social History Smoking and tobacco/nicotine status: current every day tobacco/nicotine user cigarettes Packs smoked per day: 0.5 Alcohol intake: never Substance/Drug Use: former Date of last use: Quit using last year Household members: family and other Details: Lives with mother Housing: House Marital status: Single Current occupational status: unemployed Current gender identity: Female Vitals/I&O/Wt Last Vital Signs Temp 97.7 F 05/08/24 15:32 Pulse 86 05/08/24 15:32 Resp 17 05/08/24 15:32 BP 136/70 05/08/24 15:32 Pulse Ox 93 05/08/24 15:32 O2 Del Method Room Air 05/08/24 15:32 O2 Flow Rate 4 05/06/24 04:30 05/08/24 05/08/24 05/08/24 06:59 14:59 22:59 Intake Total 240 / 1200 618 / 618 Output Total 2500 / 2500 Balance 240 / 1200 -1882 / -1882 Weight last 48 hrs Weight 217 lb 2.485 oz Weight 190 lb Weight 213 lb 6.4 oz Data 05/08/24 05:04 05/08/24 05:04 Micro: Microbiology 05/07/24 14:25 Blood Culture - Preliminary Blood NEGATIVE TO DATE 05/07/24 14:21 Blood Culture - Preliminary Blood NEGATIVE TO DATE 05/05/24 12:40 Blood Culture - Final Blood Methicillin Resis Staph Aureus 05/05/24 12:37 Blood Culture - Final Blood Methicillin Resis Staph Aureus Coding Level of Care Code Acute Code for Chg Fwd
--- NOTE | 2024-05-08 20:35 | PC.NURSE ---
Went to remove lidocaine patch per order. Unable to locate lidocaine patch. Patient states I must have rubbed it off. Nicotine patch still present to left arm and Clonidine patch still present to right arm.
[2024-05-09] VITALS (11 sets, daily range): BP systolic 121–179; BP diastolic 46–98; PULSE 76–96; RESP 16–19; TEMP 36.2–36.7; O2SAT 92–96
[2024-05-09 05:01] LABS: Basophils # 0.1 10^3/uL (0.0-0.1); Basophils % 0.6 %; Eosinophils # 0.3 10^3/uL (0.0-0.8); Eosinophils % 2.7 %; Hematocrit 30.9 % (36-47); Lymphocytes # 1.5 10^3/uL (0.8-4.8); Mean Corpuscular HGB Conc 33.3 g/dL (30-55); Mean Corpuscular Hemoglobin 32.2 pg (27-33); Mean Corpuscular Volume 96.6 fl (85-98); Mean Platelet Volume 10.7 fL (7.4-10.4); Monocytes # 1.3 10^3/uL (0.2-0.9); Monocytes % 12.3 %; Neutrophils # 6.93 10^3/uL (1.8-7.7); Neutrophils % 67.9 %; Nucleated Red Blood Cells % 0 %; Platelet Count 183 10^3/cmm (157-399)
[2024-05-09 05:21] LABS: Anion Gap 16.3 (5-19); Blood Urea Nitrogen 22 mg/dL (6-20); Carbon Dioxide 24 mmol/L (22-29); Chloride 101 mmol/L (98-107); Creatinine Clr Calc Pharmacy 15.5513; Glomerular Filtration Rate 8.7 mL/min (90-130); Glucose 101 mg/dL (65-115); Osmolality Calculated 289 mOsm/kg (285-295); Potassium 3.3 mmol/L (3.5-5.1); Sodium 138 mmol/L (136-145)
[2024-05-09] MEDS: ALPRAZolam 0.5 mg Tablet PO (06:30)
[2024-05-09] MEDS: minoxidil 10 mg Tablet PO (07:40)
[2024-05-09] MEDS: losartan 50 mg Tablet PO (07:40)
[2024-05-09] MEDS: hyDRALAzine 50 mg Tablet PO (07:41)
[2024-05-09] MEDS: labetalol 200 mg Tablet 300 MG PO (07:41)
[2024-05-09] MEDS: lidocaine 5% Patch 1 PATCH TOPICAL (07:41)
[2024-05-09] MEDS: amlodipine 10 mg Tablet PO (07:41)
[2024-05-09] MEDS: nicotine 21 mg Patch 1 PATCH TRANSDERMA (07:43)
--- NOTE | 2024-05-09 08:45 | P.ANESASSM_ITS ---
Pre-Anesthetic Assessment Height/Weight: Height 1.57 m Weight 97.205 kg Temp Pulse Resp BP Pulse Ox O2 Del Method O2 Flow Rate 98.1 F 92 16 166/72 94 Room Air 4 05/09/24 08:00 05/09/24 08:00 05/09/24 08:00 05/09/24 08:00 05/09/24 08:00 05/09/24 08:00 05/06/24 04:30 Operation Date: 05/09/24 13:15 Proposed Procedures p DIANE(Not Applicable) - Nahid Ervin M.D Familial anesthetic complications: none Was Beta Rosalinda taken within 24 hours: Yes Was Clonidine taken within 24 hours: N/A Last intake: Intake Last Liquid Date 05/08/24 Last Liquid Time 21:00 Last Solid Date 05/08/24 Last Solid Time 18:00 Social Tobacco and No alcohol meth Exam alert, oriented x 3, clear to auscultation bilaterally and regular rate & rhythm Airway Mallampati: Class III Dentition: chipped and other (poor dentition) Pulmonary pneumonia CV/HEM Congestive Heart Failure and Hypertension echo CONCLUSIONS LV systolic function is normal with EF of 60-65% Severe concentric left ventricular hypertrophy Severely dilated left atrium Mild mitral annular calcification. Mild mitral regurgitation. Mild mitral stenosis with mean gradient of 5mmHg. Mild tricuspid regurgitation Mild pulmonary pretension Trace pericardial effusion Compared to prior echocardiogram from 2021, patient has mild mitral stenosis, LV EF has improved, mild pulmonary hypertension seen Chronic Renal Failure (dialysis for 3 years) Hepatic Hepatitis (C) Metabolic sepsis Anesthetic Plan ASA status: 4 Anesthesia: MAC Risk of > 500 ml blood loss (7ml/kg in children): No Medications/Allergies Home Medications Medication Instructions Recorded Confirmed Last Taken Type dicyclomine 10 mg capsule 10 mg PO TID PRN Cramps 05/08/21 05/05/24 05/04/24 09:00 History docusate sodium 100 mg capsule 100 mg PO BID 11/10/21 05/05/24 05/04/24 09:00 History acetaminophen 500 mg tablet 500 - 1,000 mg PO Q6H PRN Pain 02/19/22 05/07/24 Unknown History aspirin 325 mg tablet 325 mg PO . DIRECTED 02/19/22 05/07/24 Unknown History clonidine HCl 0.1 mg tablet See Rx Instructions .Route .COMPLEX 02/19/22 05/05/24 Unknown History isosorbide mononitrate 120 mg 120 mg PO DAILY 02/19/22 05/05/24 05/04/24 09:00 History tablet,extended release 24 hr melatonin 10 mg tablet 10 mg PO BEDTIME PRN Sleep 02/19/22 05/07/24 Unknown History amlodipine 10 mg tablet 10 mg PO DAILY 05/05/24 05/05/24 05/04/24 09:00 History bumetanide 1 mg tablet 1 mg PO DIRECTED 05/05/24 05/05/24 05/04/24 09:00 History cholecalciferol (vitamin D3) 50 50 mcg PO DAILY 05/05/24 05/05/24 05/04/24 09:00 History mcg (2,000 unit) capsule labetalol 200 mg tablet 200 mg PO BID 05/05/24 05/05/24 05/04/24 09:00 History losartan 50 mg tablet 50 mg PO BEDTIME 05/05/24 05/05/24 Unknown History metolazone 5 mg tablet 5 mg PO EVERY OTHER DAY 05/05/24 05/05/24 Unknown History minoxidil 10 mg tablet 10 mg PO BID 05/05/24 05/05/24 05/04/24 09:00 History Allergies Allergy/AdvReac Type Severity Reaction Status Date / Time No Known Allergies Allergy Verified 02/02/22 13:54 Current Medications Generic Name Dose Route Start Last Admin Trade Name Freq PRN Reason Stop Dose Admin Alprazolam 0.5 mg 05/06/24 11:53 05/09/24 06:30 Alprazolam 0.5 Mg Tablet PO 0.5 mg TID PRN Administration ANXIETY Amlodipine Besylate 10 mg 05/07/24 09:00 05/09/24 07:41 Amlodipine 10 Mg Tablet PO 10 mg DAILY GENNY Administration Ceftriaxone Sodium 1,000 mg 05/08/24 10:15 05/08/24 13:31 Ceftriaxone 1,000 Mg Sdv IVP 1,000 mg Q24H GENNY Administration Protocol Clonidine HCl 1 patch 05/05/24 16:00 05/05/24 16:18 Clonidine 0.3 Mg/24 Hr Patch TRANSDERMA 1 patch Q7D GENNY Administration Hydralazine HCl 10 mg 05/07/24 17:51 05/08/24 09:24 Hydralazine 20 Mg/Ml Inj 1 Ml IVP 10 mg Q4H PRN Administration HYPERTENSION Hydralazine HCl 50 mg 05/08/24 09:00 05/09/24 07:41 Hydralazine 50 Mg Tablet PO 50 mg TID GENNY Administration Labetalol HCl 300 mg 05/05/24 18:00 05/09/24 07:41 Labetalol 200 Mg Tablet PO 300 mg BID GENNY Administration Lidocaine 1 patch 05/06/24 11:59 05/09/24 07:41 Lidocaine 5% Patch TOPICAL 1 patch [id number] GENNY Administration Losartan Potassium 50 mg 05/08/24 09:00 05/09/24 07:40 Losartan 50 Mg Tablet PO 50 mg DAILY GENNY Administration Minoxidil 10 mg 05/07/24 09:00 05/09/24 07:40 Minoxidil 10 Mg Tablet PO 10 mg BID GENNY Administration Nicotine 1 patch 05/06/24 09:00 05/09/24 07:43 Nicotine 21 Mg Patch TRANSDERMA 1 patch DAILY GENNY Administration [facility] Anesthesia Medical History Methamphetamine abuse Posterior reversible encephalopathy syndrome White matter disease HCV (hepatitis C virus) on Acute kidney failure Ischemic bowel disease CHF (congestive heart failure), NYHA class III Resistant hypertension Pericardial effusion CKD (chronic kidney disease) Cardiomyopathy EF- 48% with mod LVH, grade 1 diastolic dysfunction Hypertension LVH (left ventricular hypertrophy) Methamphetamine abuse Substance abuse Surgical History Status post biopsy of kidney Status post insertion of hemodialysis catheter S/P cholecystectomy Family History Other CAD (coronary artery disease) Hypertension Social History Smoking and tobacco/nicotine status: current every day tobacco/nicotine user cigarettes Packs smoked per day: 0.5 Alcohol intake: never Substance/Drug Use: former Date of last use: Quit using last year Household members: family and other Details: Lives with mother Housing: House Marital status: Single Current occupational status: unemployed Current gender identity: Female Data Anesthesia 05/09/24 04:50 05/09/24 04:50 Short CBC 05/08/24 05/09/24 Range/Units 05:04 04:50 WBC 9.22 10.20 (3.29-11.43) 10^3/uL Hgb 9.30 L 10.30 L (11.27-16.99) g/dL Hct 28.3 L 30.9 L (36-47) % MCV 99.0 H 96.6 (85-98) fl Plt Count 151 L D 183 (157-399) 10^3/cmm Neut % (Auto) 65.3 67.9 % Neut # (Auto) 6.01 6.93 (1.8-7.7) 10^3/uL BMP 05/08/24 05/09/24 05:04 04:50 Sodium 135 L 138 Potassium 3.2 L 3.3 L Chloride 101 101 Carbon Dioxide 19 L 24 BUN 34 H 22 H Creatinine 8.0 H* 5.6 H* Glucose 95 101 Calcium 8.8 9.0 Liver Function 05/08/24 Range/Units 05:04 Total Bilirubin 0.2 (0.15-1.2) mg/dL AST 12 (0-32) U/L ALT 14 (0-33) U/L Alkaline Phosphatase 112 H (35-105) U/L Albumin 3.3 L (3.5-5.2) g/dL Microbiology 05/07/24 14:25 Blood Culture - Preliminary Blood NEGATIVE TO DATE 05/07/24 14:21 Blood Culture - Preliminary Blood NEGATIVE TO DATE 05/05/24 12:40 Blood Culture - Final Blood Methicillin Resis Staph Aureus 05/05/24 12:37 Blood Culture - Final Blood Methicillin Resis Staph Aureus Cardiac Studies: 2 Echocardiogram 05/07/24 Echocardiogram Limited Views 01/09/22 Echocardiogram Ultrasound 09/23/20
[2024-05-09] MEDS: sodium chloride 0.9% 1,000 ML 30 ML IV (09:00)
[2024-05-09 09:05] LABS: OR HCG Qualitative Urine Negative (Negative)
--- NOTE | 2024-05-09 09:08 | USCV_ITS ---
Little, Debo Age: 33 Gender: F : 1990 Exam Date: 05/09/2024 09:35 Ordering Phys: Nahid Ervin M.D ([email or web address]) Technologist: Exam Location: [facility] [place] Indication: veg BP: / HR: Rhythm: Sinus Technical Quality: Good MEASUREMENTS (Male / Female) Normal Values Medications Per anesthesia team Complications None Proc. Components After anesthesia team sedated patient, we proceeded with advancing DIANE probe FINDINGS Left Ventricle Severe concentric left ventricular hypertrophy. LV systolic function is normal with EF 55 to 60%. No regional wall abnormalities are seen. Right Ventricle Normal in size and function Right Atrium Normal in size Left Atrium Normal in size LA Appendage No left atrial appendage thrombus IA Septum Grossly normal Mitral Valve Structurally normal mitral valve. There is a 7x5mm echogenic structure seen at base of atrial side of posterior mitral valve leaflet consistent with vegetation. Aortic Valve Structurally normal aortic valve. No evidence of vegetation Tricuspid Valve Structurally normal tricuspid valve. Pulmonic Valve Grossly normal Pericardium Normal Aorta No significant atherosclerotic plaque CONCLUSIONS Severe concentric left ventricular hypertrophy. LV systolic function is normal with EF 55 to 60%. No regional wall abnormalities are seen. No left atrial appendage thrombus Structurally normal mitral valve. There is a 7x5mm echogenic structure seen at base of atrial side of posterior mitral valve leaflet consistent with vegetation. Nahid Ervin MD (Electronically Signed) Final Date: 09 May 2024 17:50 S
--- NOTE | 2024-05-09 09:23 | W.PM.OPSUD ---
Surgery/Procedure H&P Update DATE OF PROCEDURE: May 09, 2024 DATE H&P PERFORMED: 05/08/24 H&P UPDATE INFORMATION: I have reviewed H&P completed within last 30 days, I have examined patient prior to procedure and No changes to prior documentation PREOP DIAGNOSIS: MRSA bacteremia PRIMARY INDICATION FOR PROCEDURE: MRSA bacteremia PLANNED PROCEDURE: Operation Date: 05/09/24 13:15 Proposed Procedures p DIANE(Not Applicable) - Nahid Ervin M.D Anesthesia team available for sedation
--- NOTE | 2024-05-09 10:25 | ANE.PACU2 ---
Inpatient post-anesthesia follow up: Airway intact: Yes Vital signs: Temperature 97.8 F Pulse Rate 84 Respiratory Rate 17 Blood Pressure 151/68 Pulse Oximetry 94 Oxygen Delivery Me thod Room Air Oxygen Flow Rate 2 Fraction of Inspir ed Oxygen Hydration adequate: Yes Nausea and vomiting: No Pain level: 1 Mental status: Baseline
--- NOTE | 2024-05-09 10:50 | P.DS_ITS ---
Discharge Providers Date of Admission: 05/05/24 18:31 Date of Discharge: May 09, 2024 Attending Provider at Admission: Ralph Carter Attending Provider at Discharge: Mahendra Bowman MD Primary Care Provider: Laurent Wolfe MD Diagnoses at Discharge Discharge Diagnosis (1) MRSA bacteremia: Status: Acute (2) Urinary tract infection: Status: Acute Qualifiers: Urinary tract infection type: acute cystitis (3) Hepatitis C: Status: Acute Qualifiers: Viral hepatitis chronicity: chronic Hepatic coma status: without hepatic coma Qualified Code(s): B18.2 - Chronic viral hepatitis C Reason for Visit Reason for Visit: spider bite left ear, body aches, fever, n/v Hospital Course Hospital Course Debo is a 33-year-old white female with end-stage renal disease who presented to the hospital with sepsis. CT showed possible enterocolitis. She had significant fever and leukocytosis. Presentation was also complicated by tachycardia, hypotension, acute encephalopathy. She was diagnosed with sepsis and placed on broad-spectrum antibiotics. Nephrology was consulted for dialysis needs. Appropriate cultures were obtained. She was not given significant amounts of fluids secondary to her dialysis state. With treatment she improved rapidly. Blood cultures came back positive for MRSA. A transthoracic echo was concerning for mitral stenosis. A DIANE was ultimately obtained on 05/09 which demonstrated a mitral valve vegetation of 6 to 7 mm. Infectious disease consultation was obtained, confirming to continue vancomycin for endocarditis. It was recommended she have at least 6 weeks of vancomycin, and have follow-up DIANE and infectious disease follow-up as an outpatient. By 05/09 the patient was afebrile, white count was normal, repeat cultures were holding negative, and she wished to go home. It was thought reasonable to have her go home. She was given opportunity ask questions and agreed with the plan. Multiple medication changes were made secondary to her hypertension and are reflected in the discharge. She should follow-up for her regular dialysis tomorrow, and vancomycin for the next 6 weeks is being arranged through her dialysis center at [facility]. Physical Exam Narrative: General exam no distress Neck is supple Cardiovascular regular rate and rhythm with a 2/6 systolic murmur Lungs clear Abdomen is soft Extremities no cyanosis clubbing edema, AV graft without evidence of overlying erythema. Bruits noted. Discharge Data Studies Completed and Pending Completed Studies During Hospitalization Category Date Time Status CT abdomen pelvis w con* [id number] Stat Cat Scan 05/05/24 12:[address] head w con [id number] Stat Cat Scan 05/05/24 14:50 Completed XR chest 1V portable [id number] Stat Exams 05/05/24 12:05 Completed CV. echo complete* [id number] Routine Ultrasound 05/07/24 20:25 Completed Pending at discharge Category Date Time Status Blood Culture Stat Lab 05/07/24 14:25 Results HEP C RNA Viral Load Qnt [Hepatitis C RNA Viral Load Lab 05/09/24 04:50 Received Qnt] AM LABS Stool Culture - Enteric [Salmonella / Shigella / Campy] Lab 05/06/24 21:55 Received Routine CV echo transesophageal [id number] Routine Ultrasound 05/09/24 09:08 Taken Radiology Impressions Abdomen/Pelvis CT 05/05/24 12:05 IMPRESSION: Findings consistent with acute enterocolitis Stable cardiomegaly Chest X-Ray 05/05/24 12:05 IMPRESSION: No acute findings. Head CT 05/05/24 14:50 IMPRESSION: Right-sided sinusitis Laboratory Results WBC 10.20 10^3/uL (3.29-11.43) 05/09/24 04:50 RBC 3.20 10^6/uL (3.85-5.65) L 05/09/24 04:50 Hgb 10.30 g/dL (11.27-16.99) L 05/09/24 04:50 Hct 30.9 % (36-47) L 05/09/24 04:50 MCV 96.6 fl (85-98) 05/09/24 04:50 MCH 32.2 pg (27-33) 05/09/24 04:50 MCHC 33.3 g/dL (30-55) 05/09/24 04:50 RDW 14.0 % (12.1-15.1) 05/09/24 04:50 Plt Count 183 10^3/cmm (157-399) 05/09/24 04:50 MPV 10.7 fL (7.4-10.4) H 05/09/24 04:50 Neut % (Auto) 67.9 % 05/09/24 04:50 Lymph % (Auto) 15.0 % 05/09/24 04:50 [place] % (Auto) 12.3 % 05/09/24 04:50 Eos % (Auto) 2.7 % 05/09/24 04:50 Baso % (Auto) 0.6 % 05/09/24 04:50 Neut # (Auto) 6.93 10^3/uL (1.8-7.7) 05/09/24 04:50 Lymph # (Auto) 1.5 10^3/uL (0.8-4.8) 05/09/24 04:50 [place] # (Auto) 1.3 10^3/uL (0.2-0.9) H 05/09/24 04:50 Eos # (Auto) 0.3 10^3/uL (0.0-0.8) 05/09/24 04:50 Baso # (Auto) 0.1 10^3/uL (0.0-0.1) 05/09/24 04:50 Nucleated RBC % (auto) 0 % 05/09/24 04:50 Nucleated RBCs # 0.0 /100WBC 05/09/24 04:50 Sodium 138 mmol/L (136-145) 05/09/24 04:50 Potassium 3.3 mmol/L (3.5-5.1) L 05/09/24 04:50 Chloride 101 mmol/L (98-107) 05/09/24 04:50 Carbon Dioxide 24 mmol/L (22-29) 05/09/24 04:50 Anion Gap 16.3 (5-19) 05/09/24 04:50 BUN 22 mg/dL (6-20) H 05/09/24 04:50 Creatinine 5.6 mg/dL (0.5-0.9) H* 05/09/24 04:50 GFR Calculation 8.7 mL/min (90-130) L 05/09/24 04:50 Glucose 101 mg/dL (65-115) 05/09/24 04:50 Calculated Osmolality 289 mOsm/kg (285-295) 05/09/24 04:50 Lactic Acid 1.0 mmol/L (0.5-2.2) 05/05/24 12:37 Calcium 9.0 mg/dL (8.5-10.5) 05/09/24 04:50 Phosphorus 4.3 mg/dL (2.5-4.5) 05/06/24 03:53 Magnesium 2.4 mg/dL (1.7-2.3) H 05/07/24 04:03 Total Bilirubin 0.2 mg/dL (0.15-1.2) 05/08/24 05:04 AST 12 U/L (0-32) 05/08/24 05:04 ALT 14 U/L (0-33) 05/08/24 05:04 Alkaline Phosphatase 112 U/L (35-105) H 05/08/24 05:04 Total Protein 6.8 g/dL (6.6-8.7) 05/08/24 05:04 Albumin 3.3 g/dL (3.5-5.2) L 05/08/24 05:04 Globulin 3.5 g/dL (1.3-4.6) 05/08/24 05:04 Lipase 11 U/L (13-60) L 05/05/24 12:40 Urine Color Yellow (Yellow) 05/05/24 12:44 Urine Appearance Cloudy (CLEAR) A 05/05/24 12:44 Urine pH 8 (5-7) H 05/05/24 12:44 Ur Specific Chambers 1.010 (1.005-1.030) 05/05/24 12:44 Urine Protein 2+ (Negative) H 05/05/24 12:44 Urine Glucose (UA) Norm (Normal) 05/05/24 12:44 Urine Ketones Negative (Negative) 05/05/24 12:44 Urine Blood 3+ (Negative) H 05/05/24 12:44 Urine Nitrate Negative (Negative) 05/05/24 12:44 Urine Bilirubin Neg (Negative) 05/05/24 12:44 Urine Urobilinogen Norm mg/dL (Negative) 05/05/24 12:44 Ur Leukocyte Esterase 2+ (Negative) H 05/05/24 12:44 Urine RBC 10-15 /hpf (0-2) H 05/05/24 12:44 Urine WBC >100 /hpf (0-5) H 05/05/24 12:44 Ur Squamous Epith Cells 5-10 /hpf (0-5) H 05/05/24 12:44 Amorphous Sediment Not Reportable 05/05/24 12:44 Urine Bacteria 4+ /hpf (NONE) H 05/05/24 12:44 Urine HCG, Qual Negative (Negative) 05/09/24 09:03 Random Vancomycin 24.6 ug/mL (20.0-40.0) 05/08/24 05:04 Urine Opiates Screen Negative ng/mL (Negative) 05/05/24 12:44 Ur Barbiturates Screen Negative ng/mL (Negative) 05/05/24 12:44 Ur Phencyclidine Scrn Negative ng/mL (Negative) 05/05/24 12:44 Ur Amphetamines Screen Positive ng/mL (Negative) H 05/05/24 12:44 U Benzodiazepines Scrn Negative ng/mL (Negative) 05/05/24 12:44 Urine Cocaine Screen Negative ng/mL (Negative) 05/05/24 12:44 U Marijuana (THC) Screen Negative ng/mL (Negative) 05/05/24 12:44 Adenovirus (PCR) Not detected (NOT DETECT) 05/05/24 12:50 C. pneumoniae DNA (PCR) Not detected (NOT DETECT) 05/05/24 12:50 Coronavirus 229E (PCR) Not detected (NOT DETECT) 05/05/24 12:50 Hep Bs Antigen Non-reactive (Nonreactive) 05/06/24 06:56 Hep Bs Antibody 218.6 (11.5-1000) 05/06/24 06:56 Hep B Core Total Ab Non-reactive (Nonreactive) 05/06/24 06:56 Human Metapneumovir PCR Not detected (NOT DETECT) 05/05/24 12:50 Influenza A (H1) PCR Not detected (NOT DETECT) 05/05/24 12:50 Influ A (H1/09) PCR Not detected (NOT DETECT) 05/05/24 12:50 Influenza A (H3) PCR Not detected (NOT DETECT) 05/05/24 12:50 Influenza Type A (PCR) Not detected (NOT DETECT) 05/05/24 12:50 Influenza Type B (PCR) Not detected (NOT DETECT) 05/05/24 12:50 M. pneumoniae (PCR) Not detected (NOT DETECT) 05/05/24 12:50 Parainfluenza 1 (PCR) Not detected (NOT DETECT) 05/05/24 12:50 Parainfluenza 2 (PCR) Not detected (NOT DETECT) 05/05/24 12:50 Parainfluenza 3 (PCR) Not detected (NOT DETECT) 05/05/24 12:50 Parainfluenza 4 (PCR) Not detected (NOT DETECT) 05/05/24 12:50 RSV Type A (PCR) Not detected (NOT DETECT) 05/05/24 12:50 RSV Type B (PCR) Not detected (NOT DETECT) 05/05/24 12:50 Entero/Rhino (PCR) Not detected (NOT DETECT) 05/05/24 12:50 SARS-CoV-2 (PCR) Not detected (NOT DETECT) 05/05/24 12:50 Vitals Last Vital Signs Temp 97.1 F L 05/09/24 09:54 Pulse 77 05/09/24 10:18 Resp 18 05/09/24 10:18 BP 130/51 05/09/24 10:18 Pulse Ox 93 05/09/24 10:18 O2 Del Method Room Air 05/09/24 10:18 O2 Flow Rate 2 05/09/24 10:04 Discharge Plan Discharge Patient Disposition: Home Condition: Stable Prescriptions: New clonidine 0.3 mg/24 hr Patch Weekly 1 patch transdermal Q7D Qty: 4 0RF labetalol 200 mg Tablet 300 mg PO BID Qty: 90 0RF hydralazine 50 mg Tablet 50 mg PO TID Qty: 90 0RF cefdinir 300 mg capsule 300 mg PO BID 5 Days Qty: 10 0RF isosorbide mononitrate 60 mg tablet extended release 24 hr 60 mg PO DAILY Qty: 30 0RF Continued docusate sodium 100 mg capsule 100 mg PO BID dicyclomine 10 mg capsule 10 mg PO TID PRN (Reason: Cramps) aspirin 325 mg Tablet 325 mg PO . DIRECTED acetaminophen 500 mg Tablet 500 - 1,000 mg PO Q6H PRN (Reason: Pain) melatonin 10 mg Tablet 10 mg PO BEDTIME PRN (Reason: Sleep) amlodipine 10 mg tablet 10 mg PO DAILY bumetanide 1 mg tablet 1 mg PO DIRECTED cholecalciferol (vitamin D3) 50 mcg (2,000 unit) capsule 50 mcg PO DAILY losartan 50 mg tablet 50 mg PO BEDTIME minoxidil 10 mg tablet 10 mg PO BID metolazone 5 mg tablet 5 mg PO EVERY OTHER DAY Discontinued clonidine HCl 0.1 mg tablet See Rx Instructions .ROUTE .COMPLEX Rx Instructions: 2 tabs po tid prn may take 2 more tabs bid up to tid prn for sbp greater than 180 isosorbide mononitrate 120 mg tablet extended release 24 hr 120 mg PO DAILY labetalol 200 mg tablet 200 mg PO BID Discharge Orders: Discharge Order (Routine); Ordered 05/09/24 Ordered By: Mahendra Bowman Referrals: Crisis Stabilization [Other] (7 days/week 8am-6pm) [facility] [Outside] (? Follow up as a walk in at [facility], walk in hours are Tuesday-Tuesday from 7:30AM-3:00PM, first come, first seen. Once you do this assessment you will be referred for appropriate services.) Laurent Wolfe MD [Primary Care Provider] - 4-7 days Shayla Clark MD [Hospitalist] - (Should be seen June 12 at 9:30 AM) Discharge Activity: Increase activity as tolerated Patient Instructions: Endocarditis (DC), Dialysis Diet (DC), Hemodialysis (DC), Post Anesthesia Instructions - Basic, Opioid Safety Activity Restrictions/Additional Instructions: Renal diet. Vancomycin to be administered with your dialysis for the next 6 weeks. Follow-up with Dr. Clark, infectious disease, 06/12 at 9:30 AM in the morning. Please stop alcohol, drug, tobacco use Return for any concerns Follow-up at [facility] to coordinate with discharge planning to make sure vancomycin has been arranged outpatient dialysis prior to discharge. 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 This is the reason for the extended IV antibiotic course. Renal diet Discharge Attestations Time Spent in Discharge Care*: greater than 30 min Status at Discharge: Cognitive status at discharge: cognitively intact , Behavioral status at discharge: cooperative , Quality Metrics Clinical Quality Measures [ No reported AMI, CVA or VTE this stay] Coding Level of Care Code 54313 Total time (in minutes) for Discharge: 37 Diagnoses MRSA bacteremia R78.81; B95.62 Urinary tract infection N39.0 Urinary tract infection type: acute cystitis Chronic hepatitis C without hepatic coma B18.2 Viral hepatitis chronicity: chronic Hepatic coma status: without hepatic coma
--- NOTE | 2024-05-09 11:02 | PC.SOCIAL ---
IMM Update pg 2 of IMM updated and reviewed w/ patient. Copy provided and copy dated, initialed and placed in chart.
--- NOTE | 2024-05-09 17:51 | PM.PN ---
Vitals/I&O/Wt Last Vital Signs Temp 97.8 F 05/09/24 11:30 Pulse 84 05/09/24 11:30 Resp 17 05/09/24 11:30 BP 151/68 05/09/24 11:30 Pulse Ox 94 05/09/24 11:30 O2 Del Method Room Air 05/09/24 11:30 O2 Flow Rate 2 05/09/24 10:04 05/09/24 05/09/24 05/09/24 06:59 14:59 22:59 Intake Total 0 / 1428 250 / 250 Balance 0 / -1072 250 / 250 Weight last 48 hrs Weight 214 lb 4.8 oz Weight 217 lb 2.485 oz Weight 190 lb Data 05/09/24 04:50 05/09/24 04:50 Micro: Microbiology 05/07/24 14:25 Blood Culture - Preliminary Blood NEGATIVE TO DATE 05/07/24 14:21 Blood Culture - Preliminary Blood NEGATIVE TO DATE Coding Level of Care Code Acute Code for Chg Fwd
--- NOTE | 2024-05-09 17:59 | P.PN_ITS ---
Subjective 2 Subjective: Infectious disease progress note. Blood culture remains negative from May 07, 2024 so far. DIANE showed 7 x 5 mm echogenic structure at the base of the atrial side of posterior mitral valve consistent with vegetation. Medications: Reviewed: Yes Vitals/I&O/Wt Last Vital Signs Temp 97.8 F 05/09/24 11:30 Pulse 84 05/09/24 11:30 Resp 17 05/09/24 11:30 BP 151/68 05/09/24 11:30 Pulse Ox 94 05/09/24 11:30 O2 Del Method Room Air 05/09/24 11:30 O2 Flow Rate 2 05/09/24 10:04 05/09/24 05/09/24 05/09/24 06:59 14:59 22:59 Intake Total 0 / 1428 250 / 250 Balance 0 / -1072 250 / 250 Weight last 48 hrs Weight 97.205 kg Weight 98.5 kg Weight 86.183 kg Physical Exam 2 Narrative: General: No acute distress, AO x3 HEENT: PERRLA, pupils bilaterally equal and reactive, pallors not present Chest: Normal vesicular breath sounds, no added sounds, equal good air entry bilaterally CVS: S1-S2 regular, no murmurs, no tachycardia, no gallops, no rubs Abdomen: Soft, nontender, no organomegaly, bowel sounds present Neuro: No focal deficits, no facial deformity, AO x3, power 5/5 in all limbs Data 05/09/24 04:50 05/09/24 04:50 Micro: Microbiology 05/07/24 14:25 Blood Culture - Preliminary Blood NEGATIVE TO DATE 05/07/24 14:21 Blood Culture - Preliminary Blood NEGATIVE TO DATE A&P Assessment and plan (1) Endocarditis: (2) Endocarditis of mitral valve: Patient admitted to the hospital on May 13, 2024 with chief complaints of generalized weakness fever tachycardia and feeling unwell. Eventually investigations in the hospital have revealed MRSA positive blood cultures from admission DIANE today showing 7 mm vegetation over the mitral valve. 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 Suspect that this is related to patient's history of drug use. U tox positive for amphetamines. Blood cultures from May 07 thus far negative to date Plan: Continue IV vancomycin 1 g after dialysis on Tuesday. Vancomycin dose to be checked prior to dialysis to assess for possible dose adjustment. Total duration of therapy to be at least 6 weeks (05/07/24-05/18/24) Follow-up in ID clinic on June 12 at 9:30 AM. Counseled to discontinue IV drug use, patient states that she only snorts, denies any IV drug use to me. (3) Urinary tract infection: Urine culture with E. coli susceptible to ceftriaxone Agree with change to cefdinir at discharge Qualifiers: Urinary tract infection type: acute cystitis (4) Hepatitis C: Genotype 3, per past notes appears to have taken treatment with Mavyret. Check hep C PCR for SVR. Follow up as outpatient Qualifiers: Viral hepatitis chronicity: chronic Hepatic coma status: without hepatic coma Qualified Code(s): B18.2 - Chronic viral hepatitis C (5) MRSA infection: Attestations 2 Medical Necessity Statement*: Per admitting stable for discharge from ID standpoint Coding Level of Care Code Acute Code for Chg Fwd High MDM includes number and complexity of problems actively addressed during encounter, amount and/or complexity of data reviewed/ordered and described risk of complication, morbidity or mortality of management as documented Diagnoses Endocarditis I38 Endocarditis of mitral valve I05.9 Urinary tract infection N39.0 Urinary tract infection type: acute cystitis Chronic hepatitis C without hepatic coma B18.2 Viral hepatitis chronicity: chronic Hepatic coma status: without hepatic coma MRSA infection A49.02
[2024-05-11 15:23] LABS: HEP C RNA Viral Load Quant <1.18 NOT DETECTED Log IU/mL (NOT DETECTED); HEP C RNA Viral Load Quant <15 NOT DETECTED IU/mL (NOT DETECTED)
== END 2024-05-09 12:02 | disposition home or self-care (01) | DRG 871 ==
LOC: ER 14:14 → ICU 18:33 → MEDSURG 05-06 19:11
PROVIDERS: Hospitalist; Internal Medicine; Student in an Organized Health Care Education/Training Program; Admitting Provider Internal Medicine; Emergency Provider Family Medicine; PCP Family Medicine; Visit Provider Internal Medicine
PROC: B24BZZ4 Ultrasonography of Heart with Aorta, Transesophageal (ICD-10-PCS; CPT 93312; principal; 2024-05-09 13:15)
DX: A41.02 Sepsis due to Methicillin resistant Staphylococcus aureus (principal); G93.41 Metabolic encephalopathy; N18.6 End stage renal disease; I13.2 Hypertensive heart and chronic kidney disease with heart failure and with stage 5 chronic kidney disease, or end stage renal disease; I50.22 Chronic systolic (congestive) heart failure; I42.2 Other hypertrophic cardiomyopathy; E87.1 Hypo-osmolality and hyponatremia; N30.00 Acute cystitis without hematuria; D84.9 Immunodeficiency, unspecified; Z53.29 Procedure and treatment not carried out because of patient's decision for other reasons; R65.20 Severe sepsis without septic shock; Z56.0 Unemployment, unspecified; F17.210 Nicotine dependence, cigarettes, uncomplicated; Z99.2 Dependence on renal dialysis; I16.0 Hypertensive urgency; F15.10 Other stimulant abuse, uncomplicated; B18.2 Chronic viral hepatitis C; E83.42 Hypomagnesemia; D64.9 Anemia, unspecified; K52.9 Noninfective gastroenteritis and colitis, unspecified; E87.6 Hypokalemia; B96.20 Unspecified Escherichia coli [E. coli] as the cause of diseases classified elsewhere; I34.89 Other nonrheumatic mitral valve disorders; J32.8 Other chronic sinusitis
CPT/HCPCS: 36415; 43251; 70460; 71045; 74177; 80048; 80053; 80202; 80306; 81001; 81025; 83605; 83690; 83735; 84100; 85025; 86705; 86706; 87040; 87045; 87077; 87086; 87150; 87186; 87205; 87340; 87427; 87449; 87486; 87522; 87581; 87633; 90935; 93306; 93312; 93320; 93325; 96365; 96367; 96374; 96375; 96376; 99285; J0360; J0696; J1170; J1644; J1885; J2250; J2543; J2704; J3370; J3475; J7030; J7050; Q3014; Q9967

== ENCOUNTER 2024-05-25 03:20 | Emergency (ER) | payer MEDICARE, MEDICAID, SELFPAY ==
[2024-05-25 03:22] VITALS: BP 185/151; PULSE 100; RESP 18; TEMP 36.8; O2SAT 98; BMI 36.6
--- NOTE | 2024-05-25 03:30 | W.ED.EXTPRO ---
HPI - Extremity Problem General: Chief complaint: Extremity Problem,Nontraumatic Stated complaint: dialisys port open, bleeding Time Seen by Provider: 05/25/24 03:24 History of Present Illness: Patient presents to the ER with complaints of bleeding out of her dialysis fistula which is in her left arm. She states she woke up about 10 minutes ago to get something to drink and looked down at her arm because she felt something wet and she had just had blood pouring out of her fistula site. Patient held pressure on this with a towel and then came to the ER. By time she arrived in the ER bleeding was controlled. Blood pressure was noted to be 185/151 Review of Systems General: Reports: 10 or more systems reviewed and unremarkable except in HPI and below PFSH ED PFSH: Medical History Hepatitis C Methamphetamine abuse Posterior reversible encephalopathy syndrome White matter disease HCV (hepatitis C virus) on Acute kidney failure Ischemic bowel disease CHF (congestive heart failure), NYHA class III Resistant hypertension Pericardial effusion CKD (chronic kidney disease) Cardiomyopathy EF- 48% with mod LVH, grade 1 diastolic dysfunction Hypertension LVH (left ventricular hypertrophy) Methamphetamine abuse Substance abuse Surgical History Status post biopsy of kidney Status post insertion of hemodialysis catheter S/P cholecystectomy Family History Other CAD (coronary artery disease) Hypertension Social History Smoking and tobacco/nicotine status: current every day tobacco/nicotine user cigarettes Packs smoked per day: 0.5 Alcohol intake: never Substance/Drug Use: former Date of last use: Quit using last year Household members: family and other Details: Lives with mother Housing: House Marital status: Single Current occupational status: unemployed Current gender identity: Female Physical Exam Const: COMMON NORMALS: no acute distress, average body habitus, patient oriented x3, no limitations, healthy appearing, alert and well nourished Neck/C-Spine: COMMON NORMALS: no JVD Chest: COMMONS NORMALS: normal inspection of the chest and normal palpation of entire chest wall Resp: COMMON NORMALS: normal respiratory effort, No retractions, No use of accessory muscles and clear to auscultation bilaterally AUSCULTATION: clear to auscultation bilaterally Cardio: COMMON NORMALS: no JVD, regular rate, regular rhythm, S1 normal heart sound present, S2 normal heart sound present, No gallops present (Cardio), No clicks present (Cardio), No murmurs present (Cardio) and No rub (Cardio) RATE: regular rate RHYTHM: regular rhythm HEART SOUNDS: S1 normal heart sound present and S2 normal heart sound present GI: COMMON NORMALS: Normal to inspection, nondistended, normoactive bowel sounds present, Soft to palpation, non-tender, No hepatosplenomegaly present and no masses PALPATION: Yes Soft to palpation and Yes No hepatosplenomegaly present Extremity: NARRATIVE EXTREMITY EXAM: Excoriated area over left forearm fistula site bleeding is controlled. There are also multiple other sites that look very similar over the fistula and the other veins in the forearm. Neuro: COMMON NORMALS: patient oriented x3 SENSORIUM/ORIENTATION: Yes alert Course Vital Signs: Vital signs: Vital Signs Temperature 98.2 F 05/25/24 03:22 Pulse Rate 76 05/25/24 05:05 Respiratory Rate 18 05/25/24 03:22 Blood Pressure 186/95 05/25/24 05:05 Pulse Oximetry 95 05/25/24 05:05 Oxygen Delivery Me thod Room Air 05/25/24 03:22 MDM - Extremity (Nontraumatic) Medical Decision Making Bleeding was controlled by time patient arrived here. We will redress and bandaged the wound and keep her here for observation. Will give her 50 mg of hydralazine orally to see if this lowers her blood pressure from 1 85-1 51. We also gave patient 0.2 mg clonidine for blood pressure. We kept patient around here an hour and a half and she fistula did not bleed anymore. We will be discharging her home. Medical Records I reviewed the patient's medical records. Lab Data I reviewed the patient's lab results. No radiology studies performed this visit Discharge Plan Discharge Patient Disposition: Home Clinical Impression: Labile hypertension Complication of AV dialysis fistula Qualifiers: Encounter type: initial encounter Qualified Code(s): T82.9XXA - Unspecified complication of cardiac and vascular prosthetic device, implant and graft, initial encounter Condition: Stable Prescriptions: No Action docusate sodium 100 mg capsule 100 mg PO BID dicyclomine 10 mg capsule 10 mg PO TID PRN (Reason: Cramps) aspirin 325 mg Tablet 325 mg PO . DIRECTED acetaminophen 500 mg Tablet 500 - 1,000 mg PO Q6H PRN (Reason: Pain) melatonin 10 mg Tablet 10 mg PO BEDTIME PRN (Reason: Sleep) amlodipine 10 mg tablet 10 mg PO DAILY bumetanide 1 mg tablet 1 mg PO DIRECTED cholecalciferol (vitamin D3) 50 mcg (2,000 unit) capsule 50 mcg PO DAILY losartan 50 mg tablet 50 mg PO BEDTIME minoxidil 10 mg tablet 10 mg PO BID metolazone 5 mg tablet 5 mg PO EVERY OTHER DAY labetalol 200 mg Tablet 300 mg PO BID Qty: 90 0RF hydralazine 50 mg Tablet 50 mg PO TID Qty: 90 0RF clonidine 0.3 mg/24 hr Patch Weekly 1 patch transdermal Q7D Qty: 4 0RF isosorbide mononitrate 60 mg tablet extended release 24 hr 60 mg PO DAILY Qty: 30 0RF Discharge Orders: Discharge ED (Routine); Ordered 05/25/24 Ordered By: Mario Walsh Referrals: Laurent Wolfe MD [Primary Care Provider] - 1 week Patient Instructions: AV Fistula Care, Hypertension (ED) Activity Restrictions/Additional Instructions: Please take all your medicine as directed especially for your blood pressure. Please keep the dialysis fistula covered with a pressure dressing until seen by the dialysis nurse. If it starts rebleeding please feel free to return to the ER for further evaluation and treatment. Coding Level of Care Code ED Machine Stitcher for Guillermo Puente
[2024-05-25 03:45] VITALS: BP 179/120; PULSE 90; O2SAT 98
[2024-05-25] MEDS: hyDRALAzine 25 mg Tablet 50 MG PO (03:48)
[2024-05-25 04:30] VITALS: BP 190/90; PULSE 78
[2024-05-25] MEDS: cloNIDine 0.1 mg Tablet 0.2 MG PO (04:30)
[2024-05-25 05:05] VITALS: BP 186/95; PULSE 76; O2SAT 95
[2024-05-25 05:21] VITALS: BP 186/132; PULSE 81; O2SAT 94
== END 2024-05-25 05:25 | disposition home or self-care (01) ==
PROVIDERS: Emergency Provider Emergency Medicine; PCP Family Medicine
DX: T82.838A Hemorrhage due to vascular prosthetic devices, implants and grafts, initial encounter (principal); Y71.1 Therapeutic (nonsurgical) and rehabilitative cardiovascular devices associated with adverse incidents; F17.210 Nicotine dependence, cigarettes, uncomplicated; Z86.19 Personal history of other infectious and parasitic diseases; I13.0 Hypertensive heart and chronic kidney disease with heart failure and stage 1 through stage 4 chronic kidney disease, or unspecified chronic kidney disease; N18.9 Chronic kidney disease, unspecified; I50.9 Heart failure, unspecified; I43 Cardiomyopathy in diseases classified elsewhere; Z99.2 Dependence on renal dialysis
CPT/HCPCS: 99283

== ENCOUNTER 2024-12-27 05:11 | Emergency (ER) | payer MEDICARE, MEDICAID, SELFPAY ==
[2024-12-27 05:15] VITALS: BP 202/119; PULSE 119; RESP 24; TEMP 36.3; O2SAT 94; BMI 34.7
[2024-12-27 05:30] VITALS: BP 202/119; PULSE 119; RESP 24; TEMP 36.3; O2SAT 94
[2024-12-27 06:00] VITALS: BP 231/101; PULSE 133; RESP 18; O2SAT 92
[2024-12-27 06:29] LABS: Basophils % 0.3 %; Eosinophils # 0.1 10^3/uL (0.0-0.8); Eosinophils % 0.4 %; Hematocrit 35.1 % (36-47); Lymphocytes # 0.4 10^3/uL (0.8-4.8); Lymphocytes % 3.1 %; Mean Corpuscular HGB Conc 33.3 g/dL (30-55); Mean Corpuscular Volume 98.9 fl (85-98); Mean Platelet Volume 11.2 fL (7.4-10.4); Monocytes # 0.4 10^3/uL (0.2-0.9); Monocytes % 2.8 %; Nucleated Red Blood Cells % 0 %; Platelet Count 160 10^3/cmm (157-399); Red Blood Count 3.55 10^6/uL (3.85-5.65); Red Cell Distribution Width 13.6 % (12.1-15.1); White Blood Count 13.34 10^3/uL (3.29-11.43)
--- NOTE | 2024-12-27 06:43 | W.ED.SKABFB ---
HPI - Skin/Abscess/Foreign Bdy General: Chief complaint: Skin/Abscess/Foreign Body Stated complaint: In kidney Failer,n/v,not feeling good Time Seen by Provider: 12/27/24 06:13 History of Present Illness: 34-year-old female who presents to the emergency room with Complaints of an infection. She said she had a pimple on her right cheek and she is worried that since she manipulated it it has spread to the right subclavian tunneled dialysis catheter. Patient is verbosely profane and refuses to provide history. She is extremely angry as soon as I entered the room. She begins threatening to bring lawsuits against this the nurses and myself. She refuses to allow blood pressure measurement. She had previously had a fistula in the left arm that has been removed 1 point offered to take blood pressure in the right arm she refused that as well. Patient previously was admitted in April of last year at that time she was septic and very concerned about endocarditis she also had a bladder infection. Patient has end-stage renal disease and has been on dialysis for some time. Related Data Home Medications ?Medication ?Instructions ?Recorded ?Confirmed dicyclomine 10 mg capsule 10 mg PO TID PRN Cramps 05/08/21 05/05/24 docusate sodium 100 mg capsule 100 mg PO BID 11/10/21 05/05/24 acetaminophen 500 mg tablet 500 - 1,000 mg PO Q6H PRN Pain 02/19/22 05/07/24 aspirin 325 mg tablet 325 mg PO . DIRECTED 02/19/22 05/07/24 melatonin 10 mg tablet 10 mg PO BEDTIME PRN Sleep 02/19/22 05/07/24 amlodipine 10 mg tablet 10 mg PO DAILY 05/05/24 05/05/24 bumetanide 1 mg tablet 1 mg PO DIRECTED 05/05/24 05/05/24 cholecalciferol (vitamin D3) 50 50 mcg PO DAILY 05/05/24 05/05/24 mcg (2,000 unit) capsule losartan 50 mg tablet 50 mg PO BEDTIME 05/05/24 05/05/24 metolazone 5 mg tablet 5 mg PO EVERY OTHER DAY 05/05/24 05/05/24 minoxidil 10 mg tablet 10 mg PO BID 05/05/24 05/05/24 Previous Rx's ?Medication ?Instructions ?Recorded clonidine 0.3 mg/24 hr weekly 1 patch transdermal Q7D #4 ea 05/09/24 transdermal patch hydralazine 50 mg tablet 50 mg PO TID #90 tabs 05/09/24 isosorbide mononitrate 60 mg 60 mg PO DAILY #30 tabs 05/09/24 tablet,extended release 24 hr labetalol 200 mg tablet 300 mg (1.5 x 200 mg) PO BID #90 05/09/24 tabs Allergies Allergy/AdvReac Type Severity Reaction Status Date / Time No Known Allergies Allergy Verified 12/27/24 05:22 Review of Systems General: Reports: Other Narrative: Limited due to patient's behavior and mental status Complains of pain all over complains of having fever at home. PFSH ED PFSH: Medical History Hepatitis C Methamphetamine abuse Posterior reversible encephalopathy syndrome White matter disease HCV (hepatitis C virus) on Acute kidney failure Ischemic bowel disease CHF (congestive heart failure), NYHA class III Resistant hypertension Pericardial effusion CKD (chronic kidney disease) Cardiomyopathy EF- 48% with mod LVH, grade 1 diastolic dysfunction Hypertension LVH (left ventricular hypertrophy) Methamphetamine abuse Substance abuse Surgical History Status post biopsy of kidney Status post insertion of hemodialysis catheter S/P cholecystectomy Family History Other CAD (coronary artery disease) Hypertension Social History Smoking and tobacco/nicotine status: current every day tobacco/nicotine user cigarettes Packs smoked per day: 0.5 Alcohol intake: never Substance/Drug Use: former Date of last use: Quit using last year Household members: family and other Details: Lives with mother Housing: House Marital status: Single Current occupational status: unemployed Current gender identity: Female Female Reproductive History: Date of last menstrual period: 12/19/24 Physical Exam Const: ORIENTATION/CONSCIOUSNESS: Yes awake HENMT: COMMON NORMALS: normocephalic, atraumatic and hearing grossly normal bilaterally HEAD & SCALP: normocephalic and atraumatic OTHER: Eschar on the right cheek from manipulation of a comedone. Minimal localized thickening no active drainage no erythema no induration Resp: COMMON NORMALS: normal respiratory effort, No retractions, No use of accessory muscles and clear to auscultation bilaterally AUSCULTATION: clear to auscultation bilaterally Cardio: COMMON NORMALS: regular rhythm and No murmurs present (Cardio) RATE: tachycardic RHYTHM: regular rhythm Extremity: COMMON NORMALS: normal to inspection, capillary refill normal, no clubbing, cyanosis or edema, no calf tenderness and no pedal edema Course Vital Signs: Vital signs: Vital Signs Temperature 97.3 F L 12/27/24 05:30 Pulse Rate 133 H 12/27/24 06:00 Respiratory Rate 18 12/27/24 06:00 Blood Pressure 231/101 12/27/24 06:00 Pulse Oximetry 92 12/27/24 06:00 Oxygen Delivery Me thod Room Air 12/27/24 06:00 MDM - Skin/Abscess/Foreign Bdy Medicial Decision Making Patient was continuously verbally abusive and physically aggressive. At point even threatening physical violence against myself and the staff. Shortly after I came in the room due to her behavior brought one of the nurses into be a witness while I was in the room she continued to escalate we left the room to allow her some time to settle down. Shortly after she came out of the room was yelling and screaming at the staff. She demanded to leave she refused to allow us to remove the IV initially then did allow the nurse to remove the IV in the hallway. She was told that we would be happy to see her and take care of her her response indicated that she did not wish to stay. We also told her that she was welcome to return at any time and we would be happy to care for her. Based on her behavior suspect that she is under the influence of methamphetamine. Security was present with the patient as she left the department. Medical Records I reviewed the patient's medical records. Lab Data I reviewed the patient's lab results. 12/27/24 05:45 12/27/24 05:45 Laboratory Results WBC 13.34 10^3/uL (3.29-11.43) H 12/27/24 05:45 RBC 3.55 10^6/uL (3.85-5.65) L 12/27/24 05:45 Hgb 11.70 g/dL (11.27-16.99) 12/27/24 05:45 Hct 35.1 % (36-47) L 12/27/24 05:45 MCV 98.9 fl (85-98) H 12/27/24 05:45 MCH 33.0 pg (27-33) 12/27/24 05:45 MCHC 33.3 g/dL (30-55) 12/27/24 05:45 RDW 13.6 % (12.1-15.1) 12/27/24 05:45 Plt Count 160 10^3/cmm (157-399) 12/27/24 05:45 MPV 11.2 fL (7.4-10.4) H 12/27/24 05:45 Neut % (Auto) 93.0 % 12/27/24 05:45 Lymph % (Auto) 3.1 % 12/27/24 05:45 [place] % (Auto) 2.8 % 12/27/24 05:45 Eos % (Auto) 0.4 % 12/27/24 05:45 Baso % (Auto) 0.3 % 12/27/24 05:45 Neut # (Auto) 12.40 10^3/uL (1.8-7.7) H 12/27/24 05:45 Lymph # (Auto) 0.4 10^3/uL (0.8-4.8) L 12/27/24 05:45 [place] # (Auto) 0.4 10^3/uL (0.2-0.9) 12/27/24 05:45 Eos # (Auto) 0.1 10^3/uL (0.0-0.8) 12/27/24 05:45 Baso # (Auto) 0.0 10^3/uL (0.0-0.1) 12/27/24 05:45 Nucleated RBC % (auto) 0 % 12/27/24 05:45 Nucleated RBCs # 0.0 /100WBC 12/27/24 05:45 No radiology studies performed this visit Discharge Plan Discharge Patient Disposition: Left Against Medical Advice Clinical Impression: ESRD (end stage renal disease), Hypertension, Hx of bacterial endocarditis, History of methamphetamine use Condition: Stable Prescriptions: No Action docusate sodium 100 mg capsule 100 mg PO BID dicyclomine 10 mg capsule 10 mg PO TID PRN (Reason: Cramps) aspirin 325 mg Tablet 325 mg PO . DIRECTED acetaminophen 500 mg Tablet 500 - 1,000 mg PO Q6H PRN (Reason: Pain) melatonin 10 mg Tablet 10 mg PO BEDTIME PRN (Reason: Sleep) amlodipine 10 mg tablet 10 mg PO DAILY bumetanide 1 mg tablet 1 mg PO DIRECTED cholecalciferol (vitamin D3) 50 mcg (2,000 unit) capsule 50 mcg PO DAILY losartan 50 mg tablet 50 mg PO BEDTIME minoxidil 10 mg tablet 10 mg PO BID metolazone 5 mg tablet 5 mg PO EVERY OTHER DAY labetalol 200 mg Tablet 300 mg PO BID Qty: 90 0RF hydralazine 50 mg Tablet 50 mg PO TID Qty: 90 0RF clonidine 0.3 mg/24 hr Patch Weekly 1 patch transdermal Q7D Qty: 4 0RF isosorbide mononitrate 60 mg tablet extended release 24 hr 60 mg PO DAILY Qty: 30 0RF Referrals: Laurent Wolfe MD [Primary Care Provider] - Print Language: Ecuadorean Coding Level of Care Code ED Stockroom Clerk for Guillermo Puente
[2024-12-27 06:45] LABS: Alanine Aminotransferase 11 U/L (0-33); Albumin Level 4.3 g/dL (3.5-5.2); Alkaline Phosphatase 98 U/L (35-105); Anion Gap 22.5 (5-19); Aspartate Amino Transferase 17 U/L (0-32); Blood Urea Nitrogen 59 mg/dL (6-20); Carbon Dioxide 23 mmol/L (22-29); Chloride 95 mmol/L (98-107); Creatinine Clr Calc Pharmacy 9.3902; Globulin 3.1 g/dL (1.3-4.6); Glomerular Filtration Rate 5.3 mL/min (90-130); Glucose 118 mg/dL (65-115); Lactic Sepsis W/Reflex 2.3 mmol/L (0.5-2.2); Osmolality Calculated 300 mOsm/kg (285-295); Potassium 4.5 mmol/L (3.5-5.1); Sodium 136 mmol/L (136-145); Total Bilirubin 0.3 mg/dL (0.15-1.2); Total Protein 7.4 g/dL (6.6-8.7)
[2024-12-27 07:08] LABS: Erythrocyte Sedimentation Rate 8 mm/hr (0-15)
[2024-12-27 07:22] LABS: Acetaminophen < 5.0 ug/mL (10-30); Alcohol Level < 10 mg/dL (0-10); Salicylate < 0.3 mg/dL (3-10)
[2024-12-27 08:06] LABS: Reflex Lactate Order REFLEX LACTIC ORDERD
== END 2024-12-27 07:26 | disposition left against medical advice (07) ==
PROVIDERS: Emergency Provider Family Medicine; PCP Family Medicine
DX: I13.2 Hypertensive heart and chronic kidney disease with heart failure and with stage 5 chronic kidney disease, or end stage renal disease (principal); N18.6 End stage renal disease; I50.9 Heart failure, unspecified; Z79.82 Long term (current) use of aspirin; F17.210 Nicotine dependence, cigarettes, uncomplicated
CPT/HCPCS: 36415; 80053; 80307; 83605; 85025; 85651; 86140; 87040; 87077; 87150; 87186; 87205; 99284

== ENCOUNTER 2025-05-17 15:37 | Emergency (ER) | payer OTHER, MEDICAID, SELFPAY ==
--- OUTSIDE RECORDS SUMMARY | 2003-10-16 19:00 | XMS_ITS | Continuity of Care Document ---
Author Name [facility] Address [address] [place] [address] Organization [facility] Care Team Providers Care Model Making Supervisor Name Role Phone [facility] Unavailable Unavailable Problems Problem Status Onset [...]
--- OUTSIDE RECORDS SUMMARY | 2025-05-17 15:41 | XMS_ITS ---
Author Organization Unknown TREATMENT PLAN [facility] Start Date Provider Encounter for Check-up [id number] Xu farrar [facility]
--- OUTSIDE RECORDS SUMMARY | 2025-05-17 15:41 | XMS_ITS | Encounter Summary ---
Author Organization [facility] Address [address] [facility] [address] [place] [address] Phone Care Team Providers Care Tank Filler Name Role Phone Laurent Wolfe MD Primary Care Provider Reason for Visit * Reason Comments Med Refill Encounter Details Date Type Department Care Team (Late st Contact Info) Description 06/24/2024 Refill [facility] [address] [facility] [address] [place] [address] Sarah Freeman MD [address] [facility] [address] [place] [address] Social History Tobacco Use Types Packs/Day Years Used Date Smoking Tobacco: Every Day Cigarettes Smokeless Tobacco: Never Alcohol Use Standard Drinks/Week Comments Not Currently 0 (1 standard drink = 0.6 oz pur e alcohol) Comments Unknown Sex and Gender Information Value Date Recorded Sex Assigned at Not on file Legal Sex Female 10:21 AM EST Gender Identity Not on file Sexual Orientation Not on file documented as of this encounter Plan of Treatment Not on file documented as of this encounter Visit Diagnoses Not on filedocumented in this encounter Care Teams Tank Filler Relationship Specialty Start Date End Date Laurent Wolfe MD PCP - General Family Medicine 11/16/21 documented as of this encounter
--- OUTSIDE RECORDS SUMMARY | 2025-05-17 15:41 | XMS_ITS | Encounter Summary ---
Author Organization [facility] Address [address] [place] [address] Care Team Providers Care Pipeline Integrity Engineer Name Role Phone Laurent Wolfe MD Primary Care Provider [phone] Reason for Visit * Reason Onset Date Comments Appointment Notification 04/05/2025 Encounter Details Date Type Department Care Team (Late st Contact Info) Description 04/05/2025 Telephone [facility] [place] [address] [facility] [address] [place] [address] Meg Glaser MD [address] [facility] [address] [place] [address] Appointment Notification Social History Tobacco Use Types Packs/Day Years Used Date Smoking Tobacco: Every Day Cigarettes 0.2 22.6 Started: 2002 Smokeless Tobacco: Never Alcohol Use Standard Drinks/Week Comments Never 0 (1 standard drink = 0.6 oz pur e alcohol) Comments No Sex and Gender Information Value Date Recorded Sex Assigned at Not on file Legal Sex Female 5:36 PM CDT Gender Identity Not on file Sexual Orientation Not on file documented as of this encounter Miscellaneous Notes * Telephone Encounter - Clem Hunt - 04/05/2025 9:15 AM CDT Jailyn (Provider) Caller: [facility] Relation to Patient: mother PHI (Y/N): y MESSAGE Pt needs to cancel all 3 appts today Pt was lifelined to [facility] now in ICU documented in this encounter Plan of Treatment Not on file documented as of this encounter Visit Diagnoses Not on filedocumented in this encounter Additional Health Concerns Infection Onset Date Last Indicated Resolved Time R/O GI Pathogen 04/04/2025 04/04/2025 04/05/2025 3 :50 PM CDT documented as of this encounter Care Teams Pipeline Integrity Engineer Relationship Specialty Start Date End Date Laurent Wolfe MD [address] [address] PCP - General Family Practice 01/10/22 documented as of this encounter
--- OUTSIDE RECORDS SUMMARY | 2025-05-17 15:41 | XMS_ITS | Encounter Summary ---
Author Organization [facility] Address [address] [facility] [address] [place] [address] Phone Care Team Providers Care Musical String Maker Name Role Phone Laurent Wolfe MD Primary Care Provider [phone] Reason for Visit * Reason Comments Med Refill Encounter Details Date Type Department Care Team (Late st Contact Info) Description 10/23/2024 Refill [facility] [address] [facility] [address] [place] [address] Sarah Freeman MD [address] [address] [address] [facility] [address] [place] [address] Social History Tobacco Use Types [...] on filedocumented in this encounter Care Teams Musical String Maker Relationship Specialty Start Date End Date Laurent Wolfe MD PCP - General Family Medicine 11/16/21 documented as of this encounter
--- OUTSIDE RECORDS SUMMARY | 2025-05-17 15:41 | XMS_ITS | Encounter Summary ---
Author Organization [facility] Address [address] [facility] [address] [place] [address] Phone Care Team Providers Care Computer Technology Teacher Name Role Phone Laurent Wolfe MD Primary Care Provider [phone] Reason for Visit * Reason Comments Med Refill Encounter Details Date Type Department Care Team (Late st Contact Info) Description 11/18/2024 Refill [facility] [address] [facility] [address] [place] [address] Sarah Freeman MD [address] [facility] [address] [facility] [address] [place] [address] Social History Tobacco Use Types [...] on filedocumented in this encounter Care Teams Computer Technology Teacher Relationship Specialty Start Date End Date Laurent Wolfe MD PCP - General Family Medicine 11/16/21 documented as of this encounter
--- OUTSIDE RECORDS SUMMARY | 2025-05-17 15:41 | XMS_ITS | Encounter Summary ---
Author Organization [facility] Address [address] [facility] [address] [place] [address] Phone Care Team Providers Care Rehabilitation Counselor Name Role Phone Laurent Wolfe MD Primary Care Provider [phone] Reason for Visit * Reason Comments Med Refill Encounter Details Date Type Department Care Team (Late st Contact Info) Description 11/13/2024 Refill [facility] [address] [facility] [address] [place] [address] Sarah Freeman MD [address] [facility] [address] [place] [address] Social History Tobacco Use Types [...] on filedocumented in this encounter Care Teams Rehabilitation Counselor Relationship Specialty Start Date End Date Laurent Wolfe MD PCP - General Family Medicine 11/16/21 documented as of this encounter
--- OUTSIDE RECORDS SUMMARY | 2025-05-17 15:41 | XMS_ITS | Encounter Summary ---
Author Organization [facility] Address [address] [facility] [address] [place] [address] Phone Care Team Providers Care Entry Level Staff Accountant Name Role Phone Laurent Wolfe MD Primary Care Provider [phone] Reason for Visit * Reason Comments Med Refill Encounter Details Date Type Department Care Team (Late st Contact Info) Description 11/15/2024 Refill [facility] [address] [facility] [place] [address] [address] Sarah Freeman MD [address] [facility] [address] [facility] [address] [place] [address] Social History Tobacco Use Types [...] on file documented as of this encounter Procedures Procedure Name Priority Date/Time Associated Diagnosis Comments HEMATOLOGY Routine 11/15/2024 documented in this encounter Results * (ABNORMAL) HEMATOLOGY (11/15/2024) Hemoglobin 11.4(L) 12.0 - 16.0 g/dL [facility] Hemoglobin x 3 34.2(L) 36.0 - 48.0 % [facility] 11/15/2024 11/16/2024 9:4 8 AM DROP PIT WORKER Narrative JASON - 11/16/2024 Unless otherwise specified, test(s) performed at: [facility], [address] [place] [address] SECTION SUPERVISOR: Robby Hartley M.D. For any questions, please call customer service at FREQUENCY:OTHER Resulting Agency Comment Specimen source: Blood us Sarah Freeman MD LAB BLOOD ORDERABLES Final Re sult [facility] See order comments or contact performing lab Unknown, [place] documented in this encounter Visit Diagnoses Not on filedocumented in this encounter Care Teams Entry Level Staff Accountant Relationship Specialty Start Date End Date Laurent Wolfe MD PCP - General Family Medicine 11/16/21 documented as of this encounter
--- OUTSIDE RECORDS SUMMARY | 2025-05-17 15:41 | XMS_ITS | Encounter Summary ---
Author Organization [facility] Address [address] [facility] [address] [place] [address] Phone Care Team Providers Care Shipping Helper Name Role Phone Laurent Wolfe MD Primary Care Provider [phone] Encounter Details Date Type Department Care Team ([facility] st Contact Info) Description 11/16/2021 Orders Only [facility] [address] [place] [address] Stage 3 chronic kidney disease, not otherwise specified (HCC); Acute injury of kidney (HCC) Social History Tobacco Use Types Packs/Day Years Used Date Smoking Tobacco: Never Assessed Comments Unknown Sex and Gender Information Value Date Recorded Sex Assigned at Not on file Legal Sex Female 10:21 AM EST Gender Identity Not on file Sexual Orientation Not on file documented as of this encounter Plan of Treatment Not on file documented as of this encounter Visit Diagnoses Diagnosis Stage 3 chronic kidney disease, not otherwise specified (HCC) Acute injury of kidney documented in this encounter Care Teams Shipping Helper Relationship Specialty Start Date End Date Laurent Wolfe MD PCP - General Family Medicine 11/16/21 documented as of this encounter
--- OUTSIDE RECORDS SUMMARY | 2025-05-17 15:41 | XMS_ITS | Encounter Summary ---
Author Organization [facility] Address [address] [facility] [address] [place] [address] Phone Care Team Providers Care Group Home Manager Name Role Phone Laurent Wolfe MD Primary Care Provider [phone] Reason for Visit * Reason Comments Med Refill Encounter Details Date Type Department Care Team (Late st Contact Info) Description 12/21/2024 Refill [facility] [address] [facility] [address] [place] [address] Sarah Freeman MD [address] [facility] [address] [facility] [address] [place] [address] Social History Tobacco Use Types [...] on filedocumented in this encounter Care Teams Group Home Manager Relationship Specialty Start Date End Date Laurent Wolfe MD PCP - General Family Medicine 11/16/21 documented as of this encounter
--- OUTSIDE RECORDS SUMMARY | 2025-05-17 15:41 | XMS_ITS | Encounter Summary ---
Author Organization [facility] Address [address] [facility] [address] [place] [address] Phone Care Team Providers Care Screen Making Technician Name Role Phone Laurent Wolfe MD Primary Care Provider [phone] Reason for Visit * Reason Comments Med Refill Encounter Details Date Type Department Care Team (Late st Contact Info) Description 10/15/2024 Refill [facility] [address] [facility] [address] [place] [address] Sarah Freeman MD [address] [facility] [address] [place] [address] Social History Tobacco Use Types [...] on filedocumented in this encounter Care Teams Screen Making Technician Relationship Specialty Start Date End Date Laurent Wolfe MD PCP - General Family Medicine 11/16/21 documented as of this encounter
--- OUTSIDE RECORDS SUMMARY | 2025-05-17 15:41 | XMS_ITS | Encounter Summary ---
Author Organization [facility] Address [address] [facility] [address] [place] [address] Phone Care Team Providers Care Packer Name Role Phone Laurent Wolfe MD Primary Care Provider [phone] Reason for Visit * Reason Comments Med Refill Encounter Details Date Type Department Care Team (Late st Contact Info) Description 02/17/2024 Refill [facility] [address] [facility] [address] [place] [address] Sarah Freeman MD [address] [facility] [address] [place] [address] Social History Tobacco Use Types [...] on filedocumented in this encounter Care Teams Packer Relationship Specialty Start Date End Date Laurent Wolfe MD PCP - General Family Medicine 11/16/21 documented as of this encounter
--- OUTSIDE RECORDS SUMMARY | 2025-05-17 15:41 | XMS_ITS | Encounter Summary ---
Author Organization [facility] Address [address] [place] [address] Care Team Providers Care Professor Of Marketing Name Role Phone Laurent Wolfe MD Primary Care Provider [phone] Encounter Details Date Type Department Care Team (Late st Contact Info) Description 04/05/2025 Results Follow-Up [facility] Emergency Medicine [address] [place] [id number] Sunita Tinoco, RN BLOOD CULTURE, BLOOD CULTURE Social History Tobacco Use Types Packs/Day Years [...] documented as of this encounter Care Teams Professor Of Marketing Relationship Specialty Start Date End Date Laurent Wolfe MD [address] [id number] PCP - General Family Practice 01/10/22 documented as of this encounter
--- OUTSIDE RECORDS SUMMARY | 2025-05-17 15:41 | XMS_ITS | Encounter Summary ---
Author Organization [facility] Address [address] [facility] [address] [place] [address] Phone Care Team Providers Care Social Work Program Coordinator Name Role Phone Laurent Wolfe MD Primary Care Provider [phone] Reason for Visit * Reason Comments Med Refill Encounter Details Date Type Department Care Team (Late st Contact Info) Description 12/13/2024 Refill [facility] [address] [facility] [address] [address] Sarah Freeman MD [address] [facility] [address] [email or web address] [address] [place] [address] Social History Tobacco Use [...] Priority Date/Time Associated Diagnosis Comments HEMATOLOGY Routine 12/13/2024 documented in this encounter Results * (ABNORMAL) HEMATOLOGY (12/13/2024) Hemoglobin 11.9(L) 12.0 - 16.0 g/dL [facility] Hemoglobin x 3 35.7(L) 36.0 - 48.0 % [facility] 12/13/2024 12/14/2024 9:2 0 AM FORMS EXAMINER Narrative [facility] - 12/14/2024 Unless otherwise specified, test(s) performed at: [facility], [address] [place] [address] COTTON HEADER: Robby Hartley M.D. For any questions, please call customer service at FREQUENCY:OTHER Resulting Agency Comment Specimen source: Blood us Sarah Freeman MD LAB BLOOD ORDERABLES Final Re sult [facility] See order comments or contact performing lab Unknown, [place] documented in this encounter Visit Diagnoses Not on filedocumented in this encounter Care Teams Social Work Program Coordinator Relationship Specialty Start Date End Date Laurent Wolfe MD PCP - General Family Medicine 11/16/21 documented as of this encounter
--- OUTSIDE RECORDS SUMMARY | 2025-05-17 15:41 | XMS_ITS | Clinical Summary ---
Author Organization [facility], [facility] Address [address] [facility] [address] [place] [address] Phone Care Team Providers Care Network Security Engineer Name Role Phone Laurent Wolfe MD Primary Care Provider [phone] Allergies No known active allergies Medications docusate sodium (COLACE) 100 MG capsule Take 100 mg by mouth in the morning and 100 mg in the evening. Active dicyclomine (BENTYL) 10 MG capsule Take 10 mg by mouth in the morning and 10 mg at noon and 10 mg in the evening. Active acetaminophen (TYLENOL) 325 MG tablet Take 650 mg by mouth every 6 (six) hours if needed for mild pain Active ergocalciferol 1.25 MG (15562 UT) capsule Take 50,000 Units by mouth 1 (one) time per week Active famotidine (PEPCID) 20 MG tablet Take 20 mg by mouth in the morning and 20 mg in the evening. Active isosorbide mononitrate (IMDUR) 120 MG 24 hr tablet Take 120 mg by mouth in the morning. 01/14/2022 Active cloNIDine (CATAPRES) 0.1 MG tablet Take 0.2 mg by mouth 1 (one) time each day if needed 01/13/2022 Active aspirin (ST DINA) 81 MG EC tablet Take 81 mg by mouth in the morning. 01/14/2022 Active furosemide (LASIX) 80 MG tablet Take 0.5 tablets (40 mg total) by mouth in the morning and 0.5 tablets (40 mg total) in the evening. 180 tablet 3 01/20/2022 Active labetalol (NORMODYNE) 200 MG tablet Take 1 tablet (200 mg total) by mouth in the morning and 1 tablet (200 mg total) in the evening. 180 tablet 3 04/14/2022 Active metOLazone 5 MG tablet Take 1 tablet (5 mg total) by mouth every other day 45 tablet 3 04/14/2022 Active amLODIPine (NORVASC) 10 MG tablet Take 10 mg by mouth 1 (one) time each day 02/06/2022 Active cloNIDine (Vjkcppcv-SPS-0) 0.3 MG/24HR patch weekly Place 1 patch on the skin 1 (one) time per week 12 patch 3 04/14/2022 Active Active Problems Problem Noted Date Diagnosed Date Encounter for removal of dialysis catheter 08/11 Chronic kidney disease, Stage V 12/18/2021 Proteinuria 12/18/2021 Essential (primary) hypertension 12/18/2021 Encounters Date Type Department Care Team Description 05/16/2025 Orders Only [facility], [facility] [address] [place] [address] Sarah Freeman MD 05/14/2025 Orders Only [facility], [facility] [address] [place] [address] Sarah Freeman MD 05/09/2025 Orders Only [facility], [facility] [address] [place] [address] Sarah Freeman MD 04/23/2025 Documentation Only [address] [place] [address], [facility] [address] [place] [address] Candie Herman NP 04/15/[address] [facility], [facility] [address] [place] [address] Sarah Freeman MD 03/28/2025 Orders Only [facility], [facility] [address] [place] [address] Sarah Freeman MD 03/26/2025 Treatment [facility], [facility] [address] [place] [address] Meme Cagle, MÓNICA End stage renal disease; Dependence on renal dialysis 03/23/[address] [facility], [facility] [address] [place] [address] Sarah Freeman MD 03/19/[address] [place] [address], [facility] [address] [place] [address] Meme Cagle NP End stage renal disease; Dependence on renal dialysis 03/14/[address] [facility], [facility] [address] [place] [address] Sarah Freeman MD 03/14/[address] [place] [address], [facility] [address] [place] [address] Sarah Freeman MD End stage renal disease; Dependence on renal dialysis 03/07/2025 Orders Only [facility], [facility] [address] [place] [address] Sarah Freeman MD 03/05/[address] [facility], [facility] [address] [place] [address] Sarah Freeman MD 03/05/[address] [place] [address], [facility] [address] [place] [address] Candie Herman NP End stage renal disease; Dependence on renal dialysis 02/28/[address] [facility], [facility] [address] [place] [address] Sarah Freeman MD 02/26/2025 Orders Only [facility], [facility] [address] [place] [address] Sarah Freeman MD 02/26/[address] [place], [place] [address]rology [facility], [facility] [address] [place] [address] Mmee Cagle NP End stage renal disease; Dependence on renal dialysis 02/21/2025 Orders Only [facility], [facility] [address] [place] [address] Sarah Freeman MD 02/19/2025 Orders Only [facility], [facility] [address] [place] [address] Sarah Freeman MD 02/19/2025 Treatment [facility], [facility] [address] [place] [address] Candie Herman NP End stage renal disease; Dependence on renal dialysis 02/14/2025 Orders Only [facility], [facility] [address] [place] [address] Sarah Freeman MD from Last 3 Months Family History Medical History Relation Comments Heart disease Father Hypertension Father Heart disease Mother Hypertension Mother Kidney disease Paternal Grandfather No Known Problems Sister Relation Status Comments Father Mother Alive Paternal Grandfather Sister Alive Social History Tobacco Use Types Packs/Day Years [...] on file Sexual Orientation Not on file Last Filed Vital Signs Vital Sign Reading Time Taken Comments Blood Pressure 210/120 05/18/2022 1:23 PM CDT Pulse 86 05/18/2022 1:23 PM CDT Temperature - - Respiratory Rate - - Oxygen Saturation - - Inhaled Oxygen Concentration - - Weight 70.5 kg (155 lb 6.4 oz) 05/18/2022 1:23 P M CDT Height 157.5 cm (5' 2 ) 05/18/2022 1:23 PM CDT Body Mass Index 28.42 05/18/2022 1:23 PM CDT Plan of Treatment Health Maintenance Due Date Last Done Comments Hepatitis B Vaccine (1 of 1 - Risk Dialysis 4-dose series) 03/05/1997 03/05/1996, 08/04/1995, 06/09/1995 Pneumococcal Vaccine: Peds ( 0 to 5 Years) and At-Risk Patients (6 to 49 Years) (2 of 2 - PCV) 10/29/2021 10/29/2020 Influenza Vaccine (#1) 2025 10/29/2020 Procedures Procedure Name Priority Date/Time Associated Diagnosis Comments HEMATOLOGY Routine 05/16/2025 THERAPEUTIC DRUGS Routine 05/14/2025 [facility] RESULTS Routine 05/09/2025 HD KINETICS Routine 05/09/2025 POST CHEMISTRY Routine 05/09/2025 CHEMISTRY Routine 05/09/2025 HEMATOLOGY Routine 05/09/2025 CHEMISTRY Routine 03/28/2025 HEMATOLOGY Routine 03/28/2025 [facility] RESULTS Routine 03/23/2025 HD KINETICS Routine 03/23/2025 POST CHEMISTRY Routine 03/23/2025 CHEMISTRY Routine 03/23/2025 HEMATOLOGY Routine 03/23/2025 CHEMISTRY Routine 03/23/2025 HEMATOLOGY Routine 03/14/2025 HEMATOLOGY Routine 03/07/2025 THERAPEUTIC DRUGS Routine 03/05/2025 HEMATOLOGY Routine 02/28/2025 THERAPEUTIC DRUGS Routine 02/26/2025 [facility] RESULTS Routine 02/21/2025 HD KINETICS Routine 02/21/2025 POST CHEMISTRY Routine 02/21/2025 CHEMISTRY Routine 02/21/2025 HEMATOLOGY Routine 02/21/2025 THERAPEUTIC DRUGS Routine 02/19/2025 HEMATOLOGY Routine 02/14/2025 from Last 3 Months Results * (ABNORMAL) HEMATOLOGY (05/16/2025) Only the most recent of9 resultswithin the time period is included. Hemoglobin 6.6(L) 12.0 - 16.0 g/dL [facility] Hemoglobin x 3 19.8(L) 36.0 - 48.0 % [facility] 05/16/2025 05/17/2025 9:3 8 AM CDT Narrative [facility] - 05/17/2025 Unless otherwise specified, test(s) performed at: [facility], [address] [place] [address] AMBULANCE DISPATCHER: Robby Hartley M.D. For any questions, please call customer service at FREQUENCY:OTHER Resulting Agency Comment Specimen source: Blood Sarah Freeman MD LAB BLOOD ORDERABLES Final Re sult [facility] See order comments or contact performing lab Unknown, [place] * THERAPEUTIC DRUGS (05/14/2025) Only the most recent of4 resultswithin the time period is included. Pathologist [facility] Vancomycin Tr 18.0 10.0 - 20.0 mcg/mL [facility] Comment: Verified by repeat analysis. Test performed at [facility], [address] [place] [address]. Telephone . Rn Residential: Cuauhtemoc Brenner MD., PhD. 05/14/2025 05/16/2025 8:0 6 AM CDT Narrative [facility] - 05/16/2025 Unless otherwise specified, test(s) performed at: [facility], [address] [place], [place] [id number] AMBULANCE DISPATCHER: Robby Hartley M.D. For any questions, please call customer service at FREQUENCY:OTHER Resulting Agency Comment Specimen source: Serum us Sarah Freeman MD LAB BLOOD ORDERABLES Final Re sult Performing Organization Address [facility] de Phone Number [facility] See order comments or contact performing lab Unknown, [place] * HD KINETICS (05/09/2025) Only the most recent of3 resultswithin the time period is included. % Urea Reduction 78 65 - 80 % [facility] 05/09/2025 05/10/2025 8:4 9 AM CDT Narrative Resulting Agency Comment Specimen source: Plasma us Sarah Freeman MD LAB BLOOD ORDERABLES Final Re sult Performing Organization Address [facility] de Phone Number [facility] See order comments or contact performing lab Unknown, [place] * POST CHEMISTRY (05/09/2025) Only the most recent of3 resultswithin the time period is included. BUN Post Dialysis 11 6 - 19 mg/dL [facility] 05/09/2025 05/10/2025 8:4 9 AM CDT Narrative [facility] - 05/10/2025 Unless otherwise specified, test(s) performed at: [facility], [address] [place] [id number] AMBULANCE DISPATCHER: Robby Hartley M.D. For any questions, please call customer service at FREQUENCY:MONTHLY Resulting Agency Comment Specimen source: Plasma us Sarah Freeman MD LAB BLOOD ORDERABLES Final Re sult Performing Organization Address [facility] de Phone Number [facility] See order comments or contact performing lab Unknown, [place] * (ABNORMAL) [facility] (05/09/2025) Only the most recent of5 resultswithin the time period is included. BUN 50(H) 6 - 19 mg/dL [facility] Creatinine 7.16(H) 0.60 - 1.30 mg/dL [facility] BUN/Creatinine Ratio 7.0(L) 10.0 - 20.0 [facility] Sodium 131(L) 136 - 145 mEq/L [facility] Potassium 5.1 3.5 - 5.1 mEq/L [facility] Chloride 91(L) 96 - 108 mEq/L [facility] Bicarbonate (CO2) 25 22 - 29 mEq/L [facility] Calcium 10.0 8.4 - 10.2 mg/dL [facility] Corrected Calcium 10.5(H) 8.4 - 10.2 mg/dL [facility] Comment: Corrected Calcium is not equivalent to measured Ionized Calcium. Phosphorus 8.0(H) 2.6 - 4.5 mg/dL [facility] Calcium Phosphorus Product 80(H) 0 - 54 [facility] Calcium Phosporus Product, Cor 84(H) 0 - 54 [facility] Total Protein 7.2 6.0 - 8.5 g/dL [facility] Albumin 3.4(L) 3.5 - 5.2 g/dL [facility] Globulin, Total 3.8 2.0 - 4.0 g/dL [facility] A/G Ratio 0.9(L) 1.0 - 2.0 [facility] Iron 78 30 - 160 mcg/dL [facility] UIBC 103(L) 155 - 355 mcg/dL [facility] TIBC 181(L) 185 - 515 mcg/dL [facility] Iron Saturation (TSat) 43 20 - 55 % [facility] 05/09/2025 05/10/2025 8:4 9 AM CDT Narrative [facility] - 05/10/2025 Unless otherwise specified, test(s) performed at: [facility], [address] [place] [id number] AMBULANCE DISPATCHER: Robby Hartley M.D. For any questions, please call customer service at FREQUENCY:MONTHLY Resulting Agency Comment Specimen source: Serum Sarah Freeman MD LAB BLOOD ORDERABLES Final Re sult [facility] See order comments or contact performing lab Unknown, [place] * [facility] Results (05/09/2025) Only the most recent of3 resultswithin the time period is included. eKt/V (Tattersall) 1.49 [facility] Center spKt/V (Daugirdas II) 1.74 [facility] Center WSTDKT/V 0.8 [facility] 05/09/2025 05/09/2025 [facility] Order[facility] Provider LAB BLOOD ORDERABLES Final Result [facility] Contact Performing lab Unknown, [place] from Last 3 Months Insurance Medicaid [place] ([id number]) [facility] Medicare Care Teams Network Security Engineer Relationship Specialty Start Date End Date Laurent Wolfe MD PCP - General Family Medicine 11/16/21
--- OUTSIDE RECORDS SUMMARY | 2025-05-17 15:41 | XMS_ITS | Encounter Summary ---
Author Organization [facility] Address [address] [facility] [address] [place] [address] Phone Care Team Providers Care Donor Services Team Leader Name Role Phone Laurent Wolfe MD Primary Care Provider [phone] Reason for Visit * Reason Comments Med Refill Encounter Details Date Type Department Care Team (Late st Contact Info) Description 09/14/2024 Refill [facility] [address] [facility] [address] [place] [address] Sarah Freeman MD [address] [facility] [address] [place] [address] Social History Tobacco Use Types [...] on filedocumented in this encounter Care Teams Donor Services Team Leader Relationship Specialty Start Date End Date Laurent Wolfe MD PCP - General Family Medicine 11/16/21 documented as of this encounter
--- OUTSIDE RECORDS SUMMARY | 2025-05-17 15:41 | XMS_ITS | Encounter Summary ---
Author Organization [facility] Address [address] [facility] [address] [place] [address] Phone Care Team Providers Care Herb Doctor Name Role Phone Laurent Wolfe MD Primary Care Provider [phone] Reason for Visit * Reason Comments Med Refill Encounter Details Date Type Department Care Team (Late st Contact Info) Description 01/26/2024 Refill [facility] [address] [facility] [address] [place] [address] Sarah Freeman MD [address] [facility] [address] [facility] [address] [place] [address] Social History Tobacco Use Types [...] Priority Date/Time Associated Diagnosis Comments HEMATOLOGY Routine 01/26/2024 documented in this encounter Results * (ABNORMAL) HEMATOLOGY (01/26/2024) Hemoglobin 11.0(L) 12.0 - 16.0 g/dL [facility] Hemoglobin x 3 33.0(L) 36.0 - 48.0 % [facility] 01/26/2024 01/27/2024 11: 31 AM CDT Narrative [facility]PS [facility] - 01/27/2024 Unless otherwise specified, test(s) performed at: [facility], [address] [place], [place] [id number] DIPPER AND BAKER: Robby Hartley M.D. For any questions, please call customer service at FREQUENCY:OTHER Resulting Agency Comment Specimen source: Blood us Sarah Freeman MD LAB BLOOD ORDERABLES Final Re sult [facility] See order comments or contact performing lab Unknown, [place] documented in this encounter Visit Diagnoses Not on filedocumented in this encounter Care Teams Herb Doctor Relationship Specialty Start Date End Date Laurent Wolfe MD PCP - General Family Medicine 11/16/21 documented as of this encounter
--- OUTSIDE RECORDS SUMMARY | 2025-05-17 15:42 | XMS_ITS | Encounter Summary ---
Author Organization [email or web address], [facility] Address [address] [place] [address] Phone Care Team Providers Care Chipping Machine Operator Name Role Phone Laurent Wolfe MD Primary Care Provider [phone] Encounter Details Date Type Department Care Team ([facility] Contact Info) Description 05/09/2025 Orders Only [email or web address], [facility] [address] [facility] [address] [place] [address] Sarah Freeman MD [address] [place] [address] Social History Tobacco Use [...] Procedure Name Priority Date/Time Associated Diagnosis Comments HD KINETICS Routine 05/09/2025 POST CHEMISTRY Routine 05/09/2025 HEMATOLOGY Routine 05/09/2025 CHEMISTRY Routine 05/09/2025 [facility] RESULTS Routine 05/09/2025 documented in this encounter Results * [facility] Results (05/09/2025) eKt/V ([place]) 1.49 [facility] spKt/V (Daugirdas II) 1.74 [facility] WSTDKT/V 0.8 [facility] 05/09/2025 05/09/2025 [facility] Ordering Provider LAB BLOOD ORDERABLES Final Result [facility] Contact Performing lab Unknown, [place] * HD KINETICS (05/09/2025) Pathologist [facility] % Urea Reduction 78 65 - 80 % [facility] 05/09/2025 05/10/2025 8:4 9 AM CDT Narrative Resulting Agency Comment Specimen source: Plasma Sarah Freeman MD LAB BLOOD ORDERABLES Final Re sult Performing Organization Address City/[facility] Co de Phone Number [facility] See order comments or contact performing lab Unknown, [place] * POST CHEMISTRY (05/09/2025) BUN Post Dialysis 11 6 - 19 mg/dL [facility] 05/09/2025 05/10/2025 8:4 9 AM CDT Narrative [facility] - 05/10/2025 Unless otherwise specified, test(s) performed at: [facility], [address] [place] [address] SERVICE ORDER DISPATCHER CHIEF: Robby Hartley M.D. For any questions, please call customer service at FREQUENCY:MONTHLY Resulting Agency Comment Specimen source: Plasma Sarah Freeman MD LAB BLOOD ORDERABLES Final Re sult Performing Organization Address City/[facility]/ZIP Co de Phone Number [facility] See order comments or contact performing lab Unknown, [place] * (ABNORMAL) [facility] Chemistry (05/09/2025) BUN 50(H) 6 - 19 mg/dL [facility] [...] 05/09/2025 05/10/2025 8:4 9 AM CDT Narrative [facility] - 05/10/2025 Unless otherwise specified, test(s) performed at: [facility], [address] [place] [address] SERVICE ORDER DISPATCHER CHIEF: Robby Hartley M.D. For any questions, please call customer service at FREQUENCY:MONTHLY Resulting Agency Comment Specimen source: Serum us Sarah Freeman MD LAB BLOOD ORDERABLES Final Re sult [email or web address] See order comments or contact performing lab Unknown, [place] * (ABNORMAL) HEMATOLOGY (05/09/2025) Neutrophils 71.0 40.0 - 75.0 % [facility] Lymphocytes Relative 12.0(L) 19.0 - 48.0 % [facility] Monocytes 7.5 3.0 - 10.0 % [facility] Eosinophils Relative 5.6 0.0 - 7.0 % [facility] Basophils Relative 0.9 0.0 - 1.5 % [facility] KAYLA 3.0 0.0 - 4.0 % [facility] WBC 10.93(H) 4.80 - 10.80 1000/mcL [facility] RBC 2.69(L) 4.20 - 5.40 mill/mcL [facility] Hematocrit 25.7(L) 37.0 - 47.0 % [facility] MCV 96 80 - 100 fl [facility] MCH 30.4 27.0 - 31.0 pg [facility] MCHC 31.8 30.0 - 36.0 g/dL [facility] RDW 15.8(H) 11.5 - 14.5 % [facility] Hemoglobin 8.2(L) 12.0 - 16.0 g/dL [facility] Hemoglobin x 3 24.6(L) 36.0 - 48.0 % [facility] Platelets 262 130 - 400 1000/mcL [facility] 05/09/2025 05/10/2025 8:1 5 AM CDT Narrative [facility] - 05/10/2025 Unless otherwise specified, test(s) performed at: [facility], [address] [place], [place] [id number] SERVICE ORDER DISPATCHER CHIEF: Robby Hartley M.D. For any questions, please call customer service at FREQUENCY:MONTHLY Resulting Agency Comment Specimen source: Blood Sarah Freeman MD LAB BLOOD ORDERABLES Final Re sult [facility] See order comments or contact performing lab Unknown, [place] documented in this encounter Visit Diagnoses Not on filedocumented in this encounter Care Teams Chipping Machine Operator Relationship Specialty Start Date End Date Laurent Wolfe MD PCP - General Family Medicine 11/16/21 documented as of this encounter
--- OUTSIDE RECORDS SUMMARY | 2025-05-17 15:42 | XMS_ITS | Encounter Summary ---
Author Organization [facility] Address [address] [facility] [address] [place] [address] Phone Care Team Providers Care Beef Cattle Grazier Name Role Phone Laurent Wolfe MD Primary Care Provider [phone] Reason for Visit * Reason Comments Med Refill Encounter Details Date Type Department Care Team (Late st Contact Info) Description 07/25/2024 Refill [facility] [address] [facility] [address] [place] [address] Sarah Freeman MD [address] [facility] [address] [place] [address] Social History Tobacco Use Types [...] on filedocumented in this encounter Care Teams Beef Cattle Grazier Relationship Specialty Start Date End Date Laurent Wolfe MD PCP - General Family Medicine 11/16/21 documented as of this encounter
--- OUTSIDE RECORDS SUMMARY | 2025-05-17 15:42 | XMS_ITS | Encounter Summary ---
Author Organization [facility] Address [address] [place] [address] Phone Care Team Providers Care Lumber Tripper Name Role Phone Laurent Wolfe MD Primary Care Provider [phone] Encounter Details Date Type Department Care Team (Late st Contact Info) Description 05/14/2025 Orders Only [facility] [address] [facility] [address] [place] [address] Sarah Freeman MD [address] [facility] [address] [place] [address] Social History Tobacco Use Types [...] Procedure Name Priority Date/Time Associated Diagnosis Comments THERAPEUTIC DRUGS Routine 05/14/2025 documented in this encounter Results * THERAPEUTIC DRUGS (05/14/2025) Vancomycin Tr 18.0 10.0 - 20.0 mcg/mL [facility] Comment: Verified by repeat analysis. Test performed at [facility], [address] [place] [id number]. Telephone . Pathology Laboratory Technologist: Cuauhtemoc Brenner MD., PhD. 05/14/2025 05/16/2025 8:0 6 AM CDT Narrative [facility] - 05/16/2025 Unless otherwise specified, test(s) performed at: [facility], [address] [place] [address] STRIPPER PRINTED CIRCUIT BOARDS: Robby Hartley M.D. For any questions, please call customer service at FREQUENCY:OTHER Resulting Agency Comment Specimen source: Serum us Sarah Freeman MD LAB BLOOD ORDERABLES Final Re sult [facility] See order comments or contact performing lab Unknown, [place] documented in this encounter Visit Diagnoses Not on filedocumented in this encounter Care Teams Lumber Tripper Relationship Specialty Start Date End Date Laurent Wolfe MD PCP - General Family Medicine 11/16/21 documented as of this encounter
--- OUTSIDE RECORDS SUMMARY | 2025-05-17 15:42 | XMS_ITS | Encounter Summary ---
Author Organization [facility] Address [address] [place] [address] Care Team Providers Care Social Media Senior Associate Name Role Phone Laurent Wolfe MD Primary Care Provider [phone] Reason for Visit * Reason Comments Med Refill Encounter Details Date Type Department Care Team ([facility] st Contact Info) Description 06/15/[address] [facility] [address] [place] [address] Hamzah Moon MD [address] [place] [address] Social History Tobacco Use Types Packs/Day Years Used Date Smoking Tobacco: Every Day Smokeless Tobacco: Never Alcohol Use Standard Drinks/Week Comments Never 0 (1 standard drink = 0.6 oz pur e alcohol) Comments No Sex and Gender Information Value Date Recorded Sex Assigned at Not on file Legal Sex Female 5:36 PM CDT Gender Identity Not on file Sexual Orientation Not on file COVID-19 Exposure Response Date Recorded In the last 10 days, have yo u been in contact with someone who was confirmed or suspected to have Coronavirus/COVID-19? No / Unsure 05/28/2022 9:11 AM CDT documented as of this encounter Plan of Treatment Not on file documented as of this encounter Visit Diagnoses Not on filedocumented in this encounter Additional Health Concerns Infection Onset Date Last Indicated Resolved Time MRSA Comment:Resolved per Type and Duration of Precautions Recommended for Selected Infections and Conditions document 2023 update 05/26/2024 05/27/2024 07/02/20 11:38 AM CDT R/O COVID-19 12/28/2024 12/28/2024 12/28/2024 12:0 8 PM CDT R/O Respiratory 12/28/2024 12/28/2024 12/28/2024 1 :57 PM CDT MRSA 12/28/2024 01/03/2025 02/02/2025 1:16 AM CDT R/O Respiratory 04/04/2025 04/04/2025 04/04/2025 5 :25 PM CDT R/O GI Pathogen 04/04/2025 04/04/2025 04/05/2025 3 :50 PM CDT documented as of this encounter Care Teams Social Media Senior Associate Relationship Specialty Start Date End Date Laurent Wolfe MD [address] [place] [id number] PCP - General Family Practice 01/10/22 documented as of this encounter
--- OUTSIDE RECORDS SUMMARY | 2025-05-17 15:42 | XMS_ITS | Encounter Summary ---
Author Organization [facility] Address [address] [facility] [address] [place] [address] Phone Care Team Providers Care Program Planner Name Role Phone Laurent Wolfe MD Primary Care Provider [phone] Reason for Visit * Reason Comments Med Refill Encounter Details Date Type Department Care Team (Late st Contact Info) Description 07/16/2024 Refill [facility] [address] [facility] [address] [place] [address] Sarah Freeman MD [address] [facility] [address] [place] [address] Social History Tobacco Use Types [...] on filedocumented in this encounter Care Teams Program Planner Relationship Specialty Start Date End Date Laurent Wolfe MD PCP - General Family Medicine 11/16/21 documented as of this encounter
--- OUTSIDE RECORDS SUMMARY | 2025-05-17 15:42 | XMS_ITS | Encounter Summary ---
Author Organization [facility] Address [address] [address] Phone Care Team Providers Care Block Trimmer Name Role Phone Laurent Wolfe MD Primary Care Provider Reason for Visit * Reason Comments Med Refill Encounter Details Date Type Department Care Team (Late st Contact Info) Description 03/29/2024 Refill [facility] [address] [place] [address] Candie Herman, ROBOTIC WELD TECHNICIAN [address] [address] Social History Tobacco Use Types Packs/Day [...] Priority Date/Time Associated Diagnosis Comments HEMATOLOGY Routine 03/29/2024 documented in this encounter Results * (ABNORMAL) HEMATOLOGY (03/29/2024) Hemoglobin 11.7(L) 12.0 - 16.0 g/dL [facility] Hemoglobin x 3 35.1(L) 36.0 - 48.0 % [facility] Reticulocyte Hemoglobin 35.0(H) 25.4 - 31.8 pg [facility] 03/29/2024 03/30/2024 11: 40 AM CDT Narrative [facility] - 03/30/2024 Unless otherwise specified, test(s) performed at: [facility], [address] [place] [address] MALTER OPERATOR: Robby Hartley M.D. For any questions, please call customer service at FREQUENCY:OTHER Resulting Agency Comment Specimen source: Blood Sarah Freeman MD LAB BLOOD ORDERABLES Final Re sult [facility] See order comments or contact performing lab Unknown, [place] documented in this encounter Visit Diagnoses Not on filedocumented in this encounter Care Teams Block Trimmer Relationship Specialty Start Date End Date Laurent Wolfe MD PCP - General Family Medicine 11/16/21 documented as of this encounter
--- OUTSIDE RECORDS SUMMARY | 2025-05-17 15:42 | XMS_ITS | Encounter Summary ---
Author Organization [facility], [facility] Address [address] [place] [address] Phone Care Team Providers Care Advisor Consultant Name Role Phone Laurent Wolfe MD Primary Care Provider [phone] Encounter Details Date Type Department Care Team (Late st Contact Info) Description 05/16/2025 Orders Only [facility] [address] [facility] [address] [place] [address] Sarah Freeman MD [address] [facility] [address] [place] [address] Social History Tobacco Use Types [...] Date/Time Associated Diagnosis Comments HEMATOLOGY Routine 05/16/2025 documented in this encounter Results * (ABNORMAL) HEMATOLOGY (05/16/2025) Hemoglobin 6.6(L) 12.0 - 16.0 g/dL [facility] Hemoglobin x 3 19.8(L) 36.0 - 48.0 % [facility] 05/16/2025 05/17/2025 9:3 8 AM CDT Narrative [facility] - 05/17/2025 Unless otherwise specified, test(s) performed at: [facility], [address] [place], [place] [id number] TRIM CREW SUPERVISOR: Robby Hartley M.D. For any questions, please call customer service at FREQUENCY:OTHER Resulting Agency Comment Specimen source: Blood us Sarah Freeman MD LAB BLOOD ORDERABLES Final Re sult [facility] See order comments or contact performing lab Unknown, [place] documented in this encounter Visit Diagnoses Not on filedocumented in this encounter Care Teams Advisor Consultant Relationship Specialty Start Date End Date Laurent Wolfe MD PCP - General Family Medicine 11/16/21 documented as of this encounter
--- OUTSIDE RECORDS SUMMARY | 2025-05-17 15:42 | XMS_ITS ---
Author Name [facility] Address [address] [place] [id number] Phone [phone] Organization [facility] e, NA DOCUMENT DISCLAIMER Multiple document versions may exist, please be sure you review the latest version. The information in the [facility] [place] Continuity of Care Document represents a summary of certain health and medical information. It may not contain the complete medical history for the patient and should be independently verified. The represented time in the document is Eastern Time. 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 Active May 09, 2025 Presence of other heart-valve replacement Z95.4 Active May 08, 2025 Anemia, unspecified D64.9 Active May 08, 2025 Endocarditis, valve unspecified I38 Active May 08, 2025 Hypertensive emergency I16.1 Active April 04, 2025 Acute and subacute endocarditis, unspecified I33.9 Active July 10, 2024 Hypertensive chronic kidney disease with stage 5 chronic kidney disease or end stage renal disease I12.0 Active July 10, 2024 Hyperkalemia E87.5 Active June 16, 2024 Bacteremia R78.81 Active June 16, 2024 Methicillin resistant Staphy lococcus aureus infection, unspecified site A49.02 Active June 16 024 Endocarditis, valve unspecified I38 Active June 15, 2024 Other infectious disease B99.8 Active May Acute and subacute infective endocarditis I33.0 Active June 12, 2024 Bacteremia R78.81 Active May 09, 2024 Other disorders of plasma-pr otein metabolism, not elsewhere classified E88.09 Active March 25, 2024 Chills (without fever) R68.83 Active Febru johnnie 2023 Chronic viral hepatitis C B18.2 Active Oc tober 2022 Diarrhea, unspecified R19.7 Active Januar y 2022 Unspecified viral hepatitis C without hepatic coma B19 .20 Active June 12, 2022 Allergy, unspecified, subsequent encounter T78.40XD Active June 07, 2022 Shortness of breath R06.02 Active May 182021 Cramp and spasm R25.2 Active June 07 Hypotension of hemodialysis I95.3 Active June 07, 2022 Nausea R11.0 Active June 07, 2022 Chest pain, unspecified R07.9 Active 2021 Fever, unspecified R50.9 Active May Pain, unspecified R52 Active June 07, 2022 Encounter for screening for respiratory tuberculosis Z11.1 Active June 07, 2022 Encounter for immunization Z23 Active A ugust 2021 Secondary hyperparathyroidism of renal origin N25.81 Active June 07, 2022 Iron deficiency anemia, unspecified D50.9 Activ e June 07, 2022 Anemia in chronic kidney disease D63.1 Active June 07, 2022 Essential (primary) hypertension I10 Active June 07, 2022 Coagulation defect, unspecified D68.9 Active June 07, 2022 Encounter for fitting and ad justment of extracorporeal dialysis catheter Z49.01 Active June 07, 2022 Hypertensive chronic kidney disease with stage 1 through stage 4 chronic kidney disease, or unspecified chronic kidney disease I12.9 Active 2021 End stage renal disease N18.6 Active 2021 ALLERGIES AND ADVERSE REACTIONS No Known Allergies SOCIAL HISTORY Tobacco Use Status Tobacco Type Unknown if ever consumed tobacco - Caregiver Characteristics Need Level ADL Type Relationship of Caregiver Independent N/A N/A Characteristics of Home environment Housing Status 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 [facility] Gender and Sex Information Gender Identity Sexual Orientation Female Decline to answer MEDICATIONS Prescribed Medications for Dialysis Treatments Medication Instructions Dosage Route Start Date End Date Stat us Cefepime Post Dialysis, Every Treatment 2000 mg Intravenous May 11, 2025 May 18, 2025 Active Cinacalcet (Sensipar) 3X Week 30 mg Oral June 28, 2024 June 27, 2025 Active Clonidine HCl PRN-may repeat x1 systolic > 180 or dystolic > 100 0.2 mg Oral October 30, 2024 October 29, 2025 Active Diphenhydramine PRN-may repeat x2 Itching 50 mg Intravenous - push May 15, 2024 May 14, 2025 Active Diphenhydramine PRN-may repeat x2 Itching 50 mg Intravenous - push May 16, 2025 May 15, 2026 Active Heparin Sodium (Porcine) 1,000 Units/mL Catheter Lock Arterial Post Dialysis, 3X Week 2400 units Arterial Red Port May 11, 2025 May 10, 2026 Active Heparin Sodium (Porcine) 1,000 Units/mL Catheter Lock Venous Post Dialysis, 3X Week 2500 units Venous Blue Port May 11, 2025 May 10, 2026 Active Heparin Sodium (Porcine) 1,000 Units/mL Systemic Bolus, Every Treatment, Total treatment minutes 210 3000 units Intravenous - push November 17, 2024 November 16, 2025 Active Mircera During Dialysis, Every 2 weeks 200 mcg Intravenous - push May 14, 2025 May 13, 2026 Active Vancomycin HCl During Dialysis, Every Treatment 1000 mg Intravenous May 11, 2025 May 18, 2025 Active Heparin Sodium (Porcine) 1,000 Units/mL Catheter Lock Arterial Post Dialysis, Every Treatment 1800 units Arterial Red Port June 05, 2024 June 04, 2025 Discontinued Heparin Sodium (Porcine) 1,000 Units/mL Catheter Lock Venous Post Dialysis, Every Treatment 1800 units Venous Blue Port June 05, 2024 June 04, 2025 Discontinued Home Medications Medication Instructions Dosage Route Start Date End Date Stat alprazolam 0.5 mg Take by mouth twice a day as needed 1 tablet ORAL May 17, 2024 Active amlodipine 10 mg Take by mouth once a day 1 tablet ORAL April 11, 2025 Active aspirin 325 mg Take by mouth once a day 1 capsule ORAL May 09, 2025 Active bisacodyl 10 mg Insert into rectum once a day as needed 1 suppository RECTAL May 09, 2025 Active bumetanide 1 mg Take by mouth every other day 1 tablet ORAL September 29, 2024 Active clonidine HCl 0.1 mg Take by mouth three times a day as needed 2 tablet ORAL February 05, 2025 Active clonidine HCl 0.1 mg Take by mouth three times a day as directed 3 tablet ORAL February 05, 2025 Active dicyclomine 10 mg Take by mouth three times a day 1 capsule ORAL November 19, 2023 Active docusate sodium 100 mg Take by mouth twice a day 1 tablet ORAL May 17, 2024 Active Eliquis 5 mg Take by mouth once a day 1 tablet ORAL May 09, 2025 Active fluoxetine 40 mg Take by mouth once a day 1 capsule ORAL September 29, 2024 Active gabapentin 100 mg Take by mouth three times a day as needed 1 capsule ORAL May 09, 2025 Active hydralazine 25 mg Take by mouth three times a day 1 tablet ORAL February 05, 2025 Active isosorbide mononitrate 120 mg Take by mouth once a day 1 tablet ORAL June 04, 2024 Active losartan 100 mg Take by mouth every evening 1 tablet ORAL August 15, 2024 Active methocarbamol 750 mg Take by mouth three times a day 1 tablet ORAL May 09, 2025 Active metolazone 5 mg Take by mouth once a day 1 tablet ORAL May 09, 2025 Active metoprolol tartrate 100 mg Take by mouth three times a day 1 tablet ORAL February 05, 2025 Active minoxidil 10 mg Take by mouth twice a day 1 tablet ORAL June 04, 2024 Active oxycodone 10 mg Take by mouth three times a day as needed for pain 1 tablet ORAL May 09, 2025 Active pantoprazole 40 mg Take by mouth once a day 1 tablet ORAL May 09, 2025 Active Renal Plex D Take by mouth every evening 1 tablet by mouth July 29, 2022 Active Sevelamer Carbonate Tablet 800 mg Take By Mouth Every 24 hours With Meals 11 Tablet By Mouth October 25, 2024 October 22, 2025 Active Vitamin D3 50 mcg (2,000 unit) Take by mouth once a day 1 capsule ORAL June 08, 2022 Active VITAL SIGNS Post-Treatment Vital Signs Vital Sign Value Date / Time Blood Pressure-sitting 141/86 mmHg May 16, 2025 05:57 AM Blood Pressure-standing 146/88 mmHg May 16, 2025 05:57 AM Heart Rate 74 beats per minute May 16 05:57 AM Respiratory Rate 18 breaths per minute May 16, 2025 05:57 AM Temperature 98.1 deg. F May 16, 2025 05 :57 AM Weight Vital Sign Value Date / Time Estimated Dry Weight 72 kg May 11 11:59 PM Pre-Dialysis 75.40 kg May 16, 2025 05 :57 AM Post-Dialysis 73.20 kg May 16, 2025 05 :57 AM Other Other Value Date / Time Height 157 cm September 02 12:00 AM Body Mass Index 29.82 kg/m2 May 09, 2025 03 :15 PM HEALTH CONCERNS Tuberculosis Testing TST Date Administered TST Date Read TST Result 06/08/2022 06/10/2022 Negative (<5) mm LAB RESULTS Hematology Result Type Result Value Relevant Referen ce Range Interpretation Date WBC (No Diff) 13.29 1000/mcL 4.80 - 10.80 1000/mcL High November 29, 2024 Neutrophils 69.4 % 40.0 - 75.0 % - November 172024 TIBC (Calc) 252 mcg/dL 185 - 515 mcg/dL - uar y 2024 Transferrin Sat. (Calc) 54 % 20 - 55 % - November 29 UIBC/TIBC 116 mcg/dL 155 - 355 mcg/dL Low November 29, 2024 Platelets 212 1000/mcL 130 - 400 1000/mcL - Febr uary 2024 Platelets 213 1000/mcL 130 - 400 1000/mcL - Bautista h 2024 WBC (No Diff) 9.27 1000/mcL 4.80 - 10.80 1000/mcL - December 20, 2024 Neutrophils 66.4 % 40.0 - 75.0 % - December 20, 2024 TIBC (Calc) 220 mcg/dL 185 - 515 mcg/dL - December UIBC/TIBC 140 mcg/dL 155 - 355 mcg/dL Low December Transferrin Sat. (Calc) 36 % 20 - 55 % - December 20, 2024 Folate, Serum 6.5 ng/mL No Reference Ran ge Provided - December 20, 2024 Ferritin 875 ng/mL 10 - 291 ng/mL High December 20, 2024 TIBC (Calc) 222 mcg/dL 185 - 515 mcg/dL - January 152024 UIBC/TIBC 157 mcg/dL 155 - 355 mcg/dL - January Transferrin Sat. (Calc) 29 % 20 - 55 % - January 24, 2025 WBC (No Diff) 15.31 1000/mcL 4.80 - 10.80 1000/mcL High January 24, 2025 Platelets 298 1000/mcL 130 - 400 1000/mcL - Apri l 2024 Neutrophils 78.3 % 40.0 - 75.0 % High January 24, 2025 Hemoglobin x 3 24.6 % 36.0 - 48.0 % Low February 21, 2025 Platelets 239 1000/mcL 130 - 400 1000/mcL - February 21, 2025 KAYLA 2.1 % 0.0 - 4.0 % - February 21, 2025 WBC (No Diff) 9.03 1000/mcL 4.80 - 10.80 1000/mcL - February 21, 2025 Basophils 0.4 % 0.0 - 1.5 % - February 21, 2025 MCH 31.2 pg 27.0 - 31.0 pg High February 21 MCHC 32.8 g/dL 30.0 - 36.0 g/dL - February 21, 2025 RDW 13.9 % 11.5 - 14.5 % - February 21 Monocytes 6.7 % 3.0 - 10.0 % - February 21, 2025 Eosinophil 2.7 % 0.0 - 7.0 % - February 21, 2025 Neutrophils 62.6 % 40.0 - 75.0 % - February 21 Lymphocytes 25.5 % 19.0 - 48.0 % - February 21 TIBC (Calc) 217 mcg/dL 185 - 515 mcg/dL - February 21, 2025 UIBC/TIBC 160 mcg/dL 155 - 355 mcg/dL - February 21, 2025 Transferrin Sat. (Calc) 26 % 20 - 55 % - February 21, 2025 Iron 57 mcg/dL 30 - 160 mcg/dL - February 21 Hemoglobin x 3 24.6 % 36.0 - 48.0 % Low February 28, 2025 Hemoglobin x 3 25.5 % 36.0 - 48.0 % Low March 07, 2025 Hemoglobin x 3 24.6 % 36.0 - 48.0 % Low March 14, 2025 Transferrin Sat. (Calc) 27 % 20 - 55 % - March 23, 2025 Iron 60 mcg/dL 30 - 160 mcg/dL - March 23, 2025 TIBC (Calc) 220 mcg/dL 185 - 515 mcg/dL - March UIBC/TIBC 160 mcg/dL 155 - 355 mcg/dL - March 23, 2025 MCHC 31.3 g/dL 30.0 - 36.0 g/dL - March 23, 2025 MCH 31.2 pg 27.0 - 31.0 pg High March 23 RDW 20.7 % 11.5 - 14.5 % High March 23 Platelets 177 1000/mcL 130 - 400 1000/mcL - March 23, 2025 Hemoglobin x 3 27.3 % 36.0 - 48.0 % Low March Ferritin 930 ng/mL 10 - 291 ng/mL High March 23 Neutrophils 70.2 % 40.0 - 75.0 % - March 23 Monocytes 6.4 % 3.0 - 10.0 % - March 23 Lymphocytes 14.8 % 19.0 - 48.0 % Low March 23 025 Basophils 2.0 % 0.0 - 1.5 % High March 23, 2025 Eosinophil 4.4 % 0.0 - 7.0 % - March 23, 2025 WBC (No Diff) 8.76 1000/mcL 4.80 - 10.80 1000/mcL - March 23, 2025 KAYLA 2.2 % 0.0 - 4.0 % - March 23, 2025 Hemoglobin x 3 27.3 % 36.0 - 48.0 % Low March Ferritin 1174 ng/mL 10 - 291 ng/mL High March 28 Eosinophil 5.6 % 0.0 - 7.0 % - May 09, 2025 Monocytes 7.5 % 3.0 - 10.0 % - May 09 Lymphocytes 12.0 % 19.0 - 48.0 % Low May 09 Neutrophils 71.0 % 40.0 - 75.0 % - May 09 KAYLA 3.0 % 0.0 - 4.0 % - May 09, 2025 Basophils 0.9 % 0.0 - 1.5 % - May 09, 2025 Iron 78 mcg/dL 30 - 160 mcg/dL - May 09, 2025 TIBC (Calc) 181 mcg/dL 185 - 515 mcg/dL Low April UIBC/TIBC 103 mcg/dL 155 - 355 mcg/dL Low May 09, 2025 Transferrin Sat. (Calc) 43 % 20 - 55 % - May 09, 2025 MCHC 31.8 g/dL 30.0 - 36.0 g/dL - May 09, 2025 MCH 30.4 pg 27.0 - 31.0 pg - May 09 HCT 25.7 % 37.0 - 47.0 % Low May 09 Platelets 262 1000/mcL 130 - 400 1000/mcL - May 09, 2025 Hemoglobin x 3 24.6 % 36.0 - 48.0 % Low April HGB 8.2 g/dL 12.0 - 16.0 g/dL Low May 09, 2025 RDW 15.8 % 11.5 - 14.5 % High May 09 25 RBC 2.69 mill/mcL 4.20 - 5.40 mill/mcL Low May 09, 2025 WBC (No Diff) 10.93 1000/mcL 4.80 - 10.80 1000/mcL High May 09, 2025 Hemoglobin x 3 19.8 % 36.0 - 48.0 % Low April HGB 6.6 g/dL 12.0 - 16.0 g/dL Critically low May 16, 2025 Metabolic/Renal Result Type Result Value Relevant Reference Range Interpre tation Date Vitamin B12 414 pg/mL 30 - 100 pg/mL High December 20, 2024 BUN, Post 6 mg/dL 6 - 19 mg/dL - February 21, 2025 URR, Calc 79 % 65 - 80 % - February 21, 2025 BUN 29 mg/dL 6 - 19 mg/dL High February 21, 2025 BUN/Creat Ratio 3.8 10.0 - 20.0 Low February 21, 2025 Creatinine, Serum 7.57 mg/dL 0.60 - 1.30 mg/dL High February 21, 2025 Potassium 3.8 mEq/L 3.5 - 5.1 mEq/L - February 21, 025 Sodium 137 mEq/L 136 - 145 mEq/L - February 21, 025 Bicarbonate 30 mEq/L 22 - 29 mEq/L High February 21 Chloride 95 mEq/L 96 - 108 mEq/L Low February 21 Sodium 138 mEq/L 136 - 145 mEq/L - March 23, 2025 Bicarbonate 23 mEq/L 22 - 29 mEq/L - March 23, 025 Chloride 102 mEq/L 96 - 108 mEq/L - March 23, 025 Potassium 5.1 mEq/L 3.5 - 5.1 mEq/L - March 23, 2025 BUN, Post 12 mg/dL 6 - 19 mg/dL - March 23 URR, Calc 70 % 65 - 80 % - March 23, 2025 BUN 40 mg/dL 6 - 19 mg/dL High March 23 BUN/Creat Ratio 5.4 10.0 - 20.0 Low March 23, 2025 Creatinine, Serum 7.36 mg/dL 0.60 - 1.30 mg/dL High March 23, 2025 BUN 50 mg/dL 6 - 19 mg/dL High May 09 BUN/Creat Ratio 7.0 10.0 - 20.0 Low May 09, 2025 Creatinine, Serum 7.16 mg/dL 0.60 - 1.30 mg/dL High May 09, 2025 Sodium 131 mEq/L 136 - 145 mEq/L Low May 09, 2025 Chloride 91 mEq/L 96 - 108 mEq/L Low May 09, 025 Potassium 5.1 mEq/L 3.5 - 5.1 mEq/L - May 09, 2025 Bicarbonate 25 mEq/L 22 - 29 mEq/L - May 09 025 URR, Calc 78 % 65 - 80 % - May 09, 2025 BUN, Post 11 mg/dL 6 - 19 mg/dL - May 09 HD Adequacy Result Type Result Value Relevant Referen ce Range Interpretation Date Krt/V 0.00 No Reference Ran ge Provided - November 29, 2024 Krt/V 0.00 No Reference Ran ge Provided - December 20, 2024 wstdKt/V, residual 0.0 No Reference Range Provided - February 21, 2025 spKt/V Gotch 1.76 No Reference Ran ge Provided - February 21, 2025 Krt/V 0.00 No Reference Ran ge Provided - February 21, 2025 wstdKt/V 2.6 No Reference Ran ge Provided - February 21, 2025 eKt/V ([place]) 1.50 No Reference Range Provided - February 21, 2025 spKt/V (Daugirdas II) 1.75 No Reference Range Provided - February 21, 2025 wstdKt/V without residual 2.6 No Reference Range Provided - February 21, 2025 spKt/V Gotch 1.47 No Reference Ran ge Provided - March 23, 2025 wstdKt/V without residual 2.3 No Reference Range Provided - March 23, 2025 eKt/V ([place]) 1.22 No Reference Range Provided - March 23, 2025 spKt/V (Daugirdas II) 1.42 No Reference Range Provided - March 23, 2025 wstdKt/V 2.3 No Reference Ran ge Provided - March 23, 2025 wstdKt/V, residual 0.0 No Reference Range Provided - March 23, 2025 Krt/V 0.00 No Reference Ran ge Provided - March 23, 2025 spKt/V (Daugirdas II) 1.74 No Reference Range Provided - May 09, 2025 eKt/V ([place]) 1.49 No Reference Range Provided - May 09, 2025 wstdKt/V, residual 0.0 No Reference Range Provided - May 09, 2025 wstdKt/V 0.8 No Reference Ran ge Provided - May 09, 2025 wstdKt/V without residual 0.8 No Reference Range Provided - May 09, 2025 Bone/Mineral Result Type Result Value Relevant Referen ce Range Interpretation Date Magnesium 2.5 mg/dL 1.6 - 2.6 mg/dL - June 21, 2024 Magnesium 3.6 mg/dL 1.6 - 2.6 mg/dL High September 20, 2024 Magnesium 2.4 mg/dL 1.6 - 2.6 mg/dL - December 20, 2024 PTH-Intact, Plasma 655 pg/mL 16 - 80 pg/mL High Dec Vitamin D 25 Hydroxy 44.1 ng/mL 30.0 - 100.0 ng/mL - December 20, 2024 Phosphorus 4.9 mg/dL 2.6 - 4.5 mg/dL High February 21 025 Calcium, Total 10.0 mg/dL 8.4 - 10.2 mg/dL - February 21, 2025 Ca x P Product 49 0 - 54 - February 21 25 Corrected Ca x P Product 50 0 - 54 - February 21, 2025 Corrected Ca x P Product 64 0 - 54 High March 23, 2025 Magnesium 2.3 mg/dL 1.6 - 2.6 mg/dL - March 23, 2025 Alkaline Phosphatase 64 U/L 35 - 104 U/L - 2024 Ca x P Product 63 0 - 54 High March 23 025 Phosphorus 6.2 mg/dL 2.6 - 4.5 mg/dL High March 23, 2025 Calcium, Total 10.2 mg/dL 8.4 - 10.2 mg/dL - March 23, 2025 PTH-Intact, Plasma 49 pg/mL 16 - 80 pg/mL - Mar Calcium, Total 10.0 mg/dL 8.4 - 10.2 mg/dL - May 09, 2025 Ca x P Product 80 0 - 54 High Adelita 24, 2 025 Phosphorus 8.0 mg/dL 2.6 - 4.5 mg/dL High May 09, 2025 Corrected Ca x P Product 84 0 - 54 High May 09, 2025 Liver/Nutrition Result Type Result Value Relevant Reference Range Interpre tation Date eNPCR 0.57 No Reference Range Provided - February 21, 2025 Total Protein 7.6 g/dL 6.0 - 8.5 g/dL - February 21, 2025 Albumin (BCG) 3.8 g/dL 3.5 - 5.2 g/dL - February 21, 2025 Globulin (Calc) 3.8 g/dL 2.0 - 4.0 g/dL - February A/G Ratio 1.0 1.0 - 2.0 - February 21, 2025 Globulin (Calc) 2.7 g/dL 2.0 - 4.0 g/dL - March 23, 2025 A/G Ratio 1.4 1.0 - 2.0 - March 23, 2025 Total Protein 6.6 g/dL 6.0 - 8.5 g/dL - March Albumin (BCG) 3.9 g/dL 3.5 - 5.2 g/dL - March eNPCR 0.74 No Reference Range Provided - March 23, 2025 Albumin (BCG) 3.4 g/dL 3.5 - 5.2 g/dL Low April Total Protein 7.2 g/dL 6.0 - 8.5 g/dL - April Globulin (Calc) 3.8 g/dL 2.0 - 4.0 g/dL - May 09, 2025 A/G Ratio 0.9 1.0 - 2.0 Low May 09, 2025 Immunochemistry Result Type Result Value Relevant Referen ce Range Interpretation Date HCV s/co ratio > 11.00 0.00 - 0.79 High June 21, 2024 HCV s/co ratio > 11.00 0.00 - 0.79 High December 20, 2024 Therapeutic Drugs Result Type Result Value Relevant Referen ce Range Interpretation Date Vancomycin, Trough 11.4 mcg/mL 10.0 - 20.0 mcg/mL - June 19, 2024 Vancomycin, Trough 12.8 mcg/mL 10.0 - 20.0 mcg/mL - June 26, 2024 Vancomycin, Trough 11.8 mcg/mL 10.0 - 20.0 mcg/mL - July 03, 2024 Vancomycin, Trough 12.4 mcg/mL 10.0 - 20.0 mcg/mL - July 10, 2024 Vancomycin, Trough 9.7 mcg/mL 10.0 - 20.0 mcg/mL Low July 17, 024 Vancomycin, Trough < 3.0 mcg/mL 10.0 - 20.0 mcg/mL Low July 24 024 Vancomycin, Trough 22.8 mcg/mL 10.0 - 20.0 mcg/mL Critically high January 24 5 Vancomycin, Trough 26.9 mcg/mL 10.0 - 20.0 mcg/mL Critically high January 29 5 Vancomycin, Trough 20.4 mcg/mL 10.0 - 20.0 mcg/mL Critically high January 31 5 Vancomycin, Trough 6.4 mcg/mL 10.0 - 20.0 mcg/mL Low February 05 5 Vancomycin, Trough 21.1 mcg/mL 10.0 - 20.0 mcg/mL Critically high February 12 5 Vancomycin, Trough 18.2 mcg/mL 10.0 - 20.0 mcg/mL - February 19, 2025 Vancomycin, Trough 21.6 mcg/mL 10.0 - 20.0 mcg/mL Critically high February 26, 2025 Vancomycin, Trough 20.4 mcg/mL 10.0 - 20.0 mcg/mL Critically high March 05, 2025 Vancomycin, Trough 18.0 mcg/mL 10.0 - 20.0 mcg/mL - May 14, 2025 Trace Elements Result Type Result Value Relevant Reference Range Interpre tation Date Aluminum 5 mcg/L 0 - 10 mcg/L - June Aluminum < 5 mcg/L 0 - 10 mcg/L - December 20 Infectious Diseases Result Type Result Value Relevant Referen ce Range Interpretation Date HCV Ab (anti-HCV) Reactive No Reference R ahsan Provided Abnormal December 20, 2024 Hep B Surface Ab (anti-HBs) 262 mIU/mL No Reference Range Provided - December 20, 2024 Hep B Surface Ag (HBsAg) Negative No Reference Range Provided - December 20, 2024 DIALYSIS PRESCRIPTION Conventional Hemodialysis Data Element Value Order Date/Time May 11, 2025 Frequency 3X Week Treatment Days TueThuSat Dialyzer [id number] Optiflux Treatment Time (Total Minutes) 210 min Blood Flow Rate (mL/min) 450 mL/min Dialysate Flow Rate Manual 800 Estimated Dry Weight 72 kg Dialysate Concentrate 2.0 K, 2.5 Ca, 1.0 Mg, 100 Dextrose (G2251) Sodium (mEq/L) 138 mEq/L Bicarb Machine Setting (mEq/L) 34 mEq/L Dialysis Access Hemodialysis-CV Cath eter-Tunneled, Chest, Right Jugular Access Placed on June 01, 2024 IMMUNIZATIONS Vaccine Date Dose Route Status Flu Vaccine - Flublok Trivalent August 04, 2024 0.5 mL Intramuscular Completed Flu Vaccine - Flublok Quadrivalent August 02, 2023 0.5 mL Intramuscular Completed PREVNAR 20 June 22, 2022 0.5 mL Intramuscular Com pleted TRANSPLANT WAITLIST STATUS No Information on Transplant Waitlist Status ADVANCE DIRECTIVES Directive Description Ordered By Effective Date Resuscitation status Full Code Sarah Freeman Oct DIALYSIS TREATMENTS Conventional Hemodialysis Date Pre-Treatment Vitals Post-Treatment Stephanie ls Duration (hr) BFR (mL/min) Dialysate Dialyzer Dialysis Access Meds Admin May 11, 2025 Weight 74.00 kg Weight 71.90 kg 03:30:00 450 3.0 K, 2.5 Ca, 1.0 Mg, 100 Dextrose (G3251) 180nre Optifl ux Blood Pressure-sitting 146/95 mmHg Blood Pressure-sit ting 159/84 mmHg Heart Rate 99 beats per minute Heart Rate 93 beats per minute Respiratory Rate 20 breaths per minute Respiratory Rate 18 breaths per minute Temperature 97.2 deg. F Temperature 98.2 deg. F May 14, 2025 Weight 75.70 kg Weight 73.00 kg 03:32:00 460 2.0 K, 2.5 Ca, 1.0 Mg, 100 Dextrose (G2251) 180nre Optiflux Hemodialysis-CV Catheter-Tunneled, Chest, Right Jugular Access Placed on June 01, 2024 Cefepime; 2000mg,Intravenous Cinacalcet (Sensipar); 30mg,Oral Clonidine HCl; 0.2mg,Oral Diphenhydramine; 50mg,Intravenous - push Heparin Sodium (Porcine) 1,000 Units/mL Catheter Lock Arterial; 2400units,Arterial Red Port Heparin Sodium (Porcine) 1,000 Units/mL Catheter Lock Venous; 2500units,Venous Blue Port Heparin Sodium (Porcine) 1,000 Units/mL Systemic; 3000units,Intravenous - push Mircera; 200mcg,Intravenous - push Vancomycin HCl; 1000mg,Intravenous Blood Pressure-sitting 191/122 mmHg Blood Pressure-sit ting 126/79 mmHg Blood Pressure-standing 176/121 mmHg Blood Pressure-st anding 147/93 mmHg Heart Rate 111 beats per minute Heart Rate 98 beats per minute Respiratory Rate 19 breaths per minute Respiratory Rate 19 breaths per minute Temperature 97.7 deg. F Temperature 97.2 deg. F May 16, 2025 Weight 75.40 kg Weight 73.20 kg 03:33:00 460 2.0 K, 2.5 Ca, 1.0 Mg, 100 Dextrose (G2251) 180nre Optiflux Hemodialysis-CV Catheter-Tunneled, Chest, Right Jugular Access Placed on June 01, 2024 Cefepime; 2000mg,Intravenous Cinacalcet (Sensipar); 30mg,Oral Diphenhydramine; 50mg,Intravenous - push Heparin Sodium (Porcine) 1,000 Units/mL Catheter Lock Arterial; 2400units,Arterial Red Port Heparin Sodium (Porcine) 1,000 Units/mL Catheter Lock Venous; 2500units,Venous Blue Port Heparin Sodium (Porcine) 1,000 Units/mL Systemic; 3000units,Intravenous - push Vancomycin HCl; 1000mg,Intravenous Blood Pressure-sitting 161/113 mmHg Blood Pressure-sit ting 141/86 mmHg Blood Pressure-standing 156/119 mmHg Blood Pressure-st anding 146/88 mmHg Heart Rate 91 beats per minute Heart Rate 74 beats per minute Respiratory Rate 18 breaths per minute Respiratory Rate 18 breaths per minute Temperature 97.1 deg. F Temperature 98.1 deg. F
--- OUTSIDE RECORDS SUMMARY | 2025-05-17 15:42 | XMS_ITS | Encounter Summary ---
Author Organization [facility] Address [address] [address] Phone Care Team Providers Care Retail Services Professional Name Role Phone Laurent Wolfe MD Primary Care Provider [phone] Reason for Visit * Reason Comments Med Refill Encounter Details Date Type Department Care Team (Late st Contact Info) Description 04/17/2024 Refill [facility] [address] [place] [address] Candie Herman [employer]RI[employer] SCI[employer]ACTITIONER [address] [address] Social History Tobacco Use Types [...] on filedocumented in this encounter Care Teams Retail Services Professional Relationship Specialty Start Date End Date Laurent Wolfe MD PCP - General Family Medicine 11/16/21 documented as of this encounter
--- OUTSIDE RECORDS SUMMARY | 2025-05-17 15:42 | XMS_ITS | Clinical Summary ---
Author Organization [facility] Address [address] [place] [address] Phone Care Team Providers Care Blind Eyeletter Name Role Phone Laurent Wolfe MD Primary Care Provider [phone] Allergies Active Allergy Reactions Criticality Noted Date Comments Adhesive Itching Low 05/26/2024 Latex 07/09/2022 Added based on information entered during case entry, please review and add reactions, type, and severity as needed Medications famotidine (PEPCID) 20 mg tablet Take 20 mg by mouth 1 time daily as needed. Active dicyclomine (BENTYL) 10 mg capsule Take 10 mg by mouth. Active amLODIPine (NORVASC) 10 mg tablet Take 1 Tablet (10 mg) by mouth daily. 30 Tablet 01/15/20 22 Active cloNIDine (OPDLFHMX-KFJ-1 ) 0.3 mg/24 hr patch Apply 1 Patch to skin as directed every 7 days. 4 Patch 01/20/20 22 Active isosorbide mononitrate (IMDUR) 120 mg Extended Release 24 hour tablet Take 1 Tablet (120 mg) by mouth daily. 30 Tablet 2 01/15/20 22 Active cloNIDine HCL (CATAPRES) 0.1 mg tablet Take 2 Tablets (0.2 mg) by mouth 3 times daily as needed for Blood Pressure (BP above 200 systolic). 30 Tablet 01/14/20 22 Active furosemide (Lasix) 20 mg tablet Take 1 Tablet (20 mg) by mouth daily. 30 Tablet 01/14/20 22 Active minoxidiL (LONITEN) 10 mg tablet Take 10 mg by mouth 2 times daily. 05/27/20 23 Active naloxone (NARCAN) 4 mg/spray Hewitt, Non-Aerosol EMERGENCY USE ONLY: Administer 1 spray (4 mg) in one nostril one time. May repeat in alternating nostrils every 2-3 min until responsive or EMS arrives. 2 Each 3 09/19/20 Active lactulose (ENULOSE) 10 gram/15 mL 10 gram/15 mL solution Take 30 mL by mouth 4 times daily as needed for Constipation. Active mupirocin (BACTROBAN) 2 % Ointment Apply to affected area see administration instructions. 08/26/20 Active acetaminophen (TYLENOL) 500 mg tablet Take 500-1,000 mg by mouth every 6 hours as needed for Pain, Pain, Mild or Pain, Mild / Temperature. 02/20/20 Active docusate sodium (COLACE) 50 mg capsule Take 100 mg by mouth 2 times daily. 11/10/19 Active metoprolol tartrate (LOPRESSOR) 50 mg tablet Take 1 Tablet (50 mg) by mouth 2 times daily. 01/04/20 Active cefePIME (MAXIPIME) 1,000 mg for home infusion Inject 1 Dose by intravenous injection every 24 hours for 7 days. 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 Acute pulmonary edema 04/06/2025 Acute respiratory failure with hypoxia Urinary tract infection due to Proteus Protein-calorie malnutrition, severe 04/05/2025 Acute metabolic encephalopathy 04/05/2025 Methamphetamine abuse 04/05/2025 Elevated troponin 04/05/2025 Severe sepsis without septic shock 04/04/2025 Transaminitis 04/04/2025 Hypervolemia 04/04/2025 Anemia 04/04/2025 S/P MVR (mitral valve replacement) 04/04/2025 MRSA (methicillin resistant staph aureus) cultur e positive 01/03/2025 Overview (04/04/2025): Hx 05/2024 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 Bacteremia 12/31/2024 Hemodialysis catheter infection 12/28/2024 Sepsis 12/28/2024 Dependence on renal dialysis 12/28/2024 History of bacteremia 12/28/2024 History of MRSA infection 12/28/2024 MRSA bacteremia 05/27/2024 Infection of AV graft for dialysis 05/27/2024 Cellulitis 05/26/2024 AV fistula infection 05/26/2024 ESRD on hemodialysis 05/26/2024 Hyperkalemia 05/26/2024 Prolonged Q-T interval on ECG 05/26/2024 CKD (chronic kidney disease) stage 5, GFR less than 15 ml/min 07/05/2022 suspected Retrobulbar neuritis of both eyes 12/16 Suspected 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 01/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 Acute loss of vision, bilateral 01/10/2022 Hypertensive emergency 01/10/2022 CHF (congestive heart failure) 01/10/2022 Hypokalemia 01/10/2022 Chronic kidney disease, stage 4 (severe) 022 Essential hypertension 12/18/2021 Substance abuse 10/17/2020 Overview (04/04/2025): Methamphetamine Hyponatremia Acute kidney injury superimposed on CKD Encounters Date Type Department Care Team Description 05/07/2025 External Device Data [facility] ABSTRACTION Provider, Abstract 05/01/2025 External Device Data [facility] ABSTRACTION Provider, Abstract 04/29/2025 Telephone [facility] V[facility] [place] [address] [place] [address] Meg Glaser MD Referral 04/11/2025 12:05 PM CDT - 04/11/2025 11:59 PM CDT Hospital Encounter [facility] Emergency Medical Services [place] [address] [place] [address] Ambulance, [facility] Geoffrey Rasmussen MD Discharge Disposition: [facility] 04/09/2025 External Device Data [facility] ABSTRACTION Provider, Abstract 04/09/2025 External Device Data [facility] ABSTRACTION Provider, Abstract 04/05/2025 Results Follow-Up [facility] Emergency Medicine [address] [place] [address] Tinoco, Sunita L, RN BLOOD CULTURE, BLOOD CULTURE 04/05/2025 Telephone [facility] Vascular Surgery [place] [address] [place] [address] Meg Glaser MD Appointment Notification 04/04/2025 4:02 PM CDT - 04/11/2025 7:25 PM CDT Hospital Encounter [facility] 6A Medical Intensive Care [address] [place] [address] Shikha Blankenship MD Lohia, MD Camacho Mendez Ammar, MD Meyer III, [place] O, DO Rasmussen, Geoffrey Lopez MD Hypertensive emergency Discharge Disposition: [facility] 04/04/2025 11:28 AM CDT - 04/04/2025 3:09 PM CDT Emergency [facility] Emergency Medicine [address] [place] [id number] Lupe Reardon MD Symptomatic anemia (Primary Dx); Other hypervolemia; Transaminitis; Severe sepsis without septic shock ([facility]) Discharge Disposition: [facility] 04/04/2025 - 04/04/2025 11:59 PM CDT Hospital Encounter [facility] [address] [place] [address] Ambulance, [facility] Discharge Disposition: [facility] 04/04/2025 Travel 03/26/2025 External Device Data [facility] ABSTRACTION Provider, Abstract 03/26/2025 External Device Data [facility] ABSTRACTION Provider, Abstract 03/19/2025 External Device Data [facility] ABSTRACTION Provider, Abstract 03/06/2025 External Device Data [facility] ABSTRACTION Provider, Abstract from Last 3 Months Social History Tobacco Use Types Packs/Day Years Used Date Smoking Tobacco: Every Day Cigarettes 0.2 22.6 Started: 2002 Smokeless Tobacco: Never Tobacco Cessation:Ready to Q uit: Not Asked; Counseling Given: Not Answered Alcohol Use Standard Drinks/Week Comments Never 0 (1 standard drink = 0.6 oz pur e alcohol) Comments No Sex and Gender Information Value Date Recorded Sex Assigned at Not on file Legal Sex Female 5:36 PM CDT Gender Identity Not on file Sexual Orientation Not on file Last Filed Vital Signs Vital Sign Reading Time Taken Comments Blood Pressure 157/134 04/11/2025 7:00 PM CDT Pulse 88 04/11/2025 7:15 PM CDT Temperature 36.6 C (97.9 F) 04/11/2025 3:00 PM CDT Respiratory Rate 16 04/11/2025 10:46 AM CDT Oxygen Saturation 99% 04/11/2025 7:15 PM CDT Inhaled Oxygen Concentration - - Weight 73.3 kg (161 lb 9.6 oz) 04/11/2025 10:46 AM CDT Height 157.5 cm (5' 2 ) 04/04/2025 4:00 PM CDT Body Mass Index 29.56 04/04/2025 4:00 PM CDT Plan of Treatment Health Maintenance Due Date Last Done Comments HEPATITIS B VACCINES (1 of 1 - Risk Dialysis 4-dose series) 03/05/1997 03/05/1996, 08/04/1995, 06/09/1995 HPV VACCINES (3 - 3-dose series) 12/12/2008 08/12/20 08, 06/11/2008 HPV/Cotest (21-29) 2011 DTAP/TDAP/TD VACCINES (7 - T d or Tdap) 05/31/2016 05/31/2006, 03/05/1996, 05/23/1992, Additional history exists CERVICAL CANCER SCREENING 2020 HPV/Cotest (30-65) 2020 PAP SMEAR 2020 INFLUENZA VACCINE (#1) 2025 10/29/2020 Medical Devices Implanted Type Area Artist Blacksmith Device Identifier Shelf Expiration Date Model / Serial / Lot Cath Dialysis Glidepath 14.5fr 24cm Std [id number] - [id number] Implanted:Qty: 1 on 06/01/2024 by Diego Salazar MD at [facility] Catheter Right: Chest BARD JD VASC 12/14/2025 [id number] / / [id number] Trialysis-01/02 Implanted:Qty: 1 on 01/02/2025 by Irineo Shah MD Catheter Right: Neck 10/16/2025 [id number] / / Clip Ligating [facility] [id number] - Csc - [id number] Implanted:Qty: 1 on 05/30/2024 by Leroy Devi MD at [facility] Clip Left: Arm TELEFLEX- WECK CLOSURE SYS [id number] 07/19/2028 [id number] / / [id number] Clip Ligating Horizon Red [id number] - - [id number] Implanted:Qty: 1 on 05/30/2024 by Leroy Devi MD at [facility] Clip Left: Arm TELEFLEX INC [id number] 06/06/2028 [id number] / / [id number] Hemostatic Surgiflo 8ml W/ Thrombin 299 - [id number] Implanted:Qty: 1 on 05/30/2024 by Leroy Devi MD at [facility] Hemostatic Left: Arm J&J- [employer] INC [id number] 07/16/2025 [id number] / / [id number] Hemostatic Surgifoam Sz100 1973 - [id number] Implanted:Qty: 1 on 05/30/2024 by Leroy Devi MD at [facility] Hemostatic Left: Arm J&J- ETHICON ENDO[employer] INC [id number] 02/16/2028 1974 / / [id number] Explanted Type Area Artist Blacksmith Device Identifier Shelf Expiration Date Model / Serial / Lot Cath Pd Ludwig Padilla 2cuf 32906-204 - [id number] Implanted:Qty : 1 on 08/12/2022 by Ron Zaragoza DO at [facility] Explanted:Qty : 1 on 10/22/2022 by Ron Zaragoza DO at [facility] Catheter Left: Abdomen MEDTRONIC - COVIDIEN [id number] 01/20/2027 [id number] / / [id number] Description:catheter intact 14.5fr X 23cm Glidepath Dialysis Catheter-05/28 Implanted:Qty : 1 on 05/28/2022 by Edmar Smiley MD Explanted:Qty : 1 on 08/12/2023 by Ángel Polo S Catheter Right: Chest Wall [id number] 12/15/2023 [id number] / / [id number] Description:14.5fr x 23cm Gl idePath Dialysis Catheter implanted right chest Cath Dialysis Power Trialysis Str 13fr [id number] - [id number] Implanted:Qty : 1 on 05/28/2024 by Edmar Smiley MD at [facility] Explanted:Qty : 1 on 06/01/2024 by Diego Salazar MD Catheter Right: Groin CR BARD- ACCESS SYS [id number] 02/13/2025 [id number] / / [id number] Procedures Procedure Name Priority Date/Time Associated Diagnosis Comments TELEMETRY REPORT 04/12/2025 2:46 PM CDT POC GLUCOSE Routine 04/11/2025 5:25 PM CDT HEMOGLOBIN AND HEMATOCRIT Routine 04/11/2025 5:25 PM CDT HEMOGLOBIN AND HEMATOCRIT Routine 04/11/2025 12:11 PM CDT POC GLUCOSE Routine 04/11/2025 12:10 PM CDT HEMODIALYSIS Routine 04/11/2025 11:50 AM CDT POC GLUCOSE Routine 04/11/2025 6:04 AM CDT POC GLUCOSE Routine 04/11/2025 5:19 AM CDT CBC WITH DIFFERENTIAL Routine 04/11/2025 4:05 AM CDT BASIC METABOLIC PANEL Routine 04/11/2025 4:05 AM CDT HEMOGLOBIN AND HEMATOCRIT Routine 04/10/2025 11:53 PM CDT POC GLUCOSE Routine 04/10/2025 11:34 PM CDT POC GLUCOSE Routine 04/10/2025 6:17 PM CDT HEMOGLOBIN AND HEMATOCRIT Routine 04/10/2025 6:13 PM CDT HEMOGLOBIN AND HEMATOCRIT Routine 04/10/2025 12:15 PM CDT POC GLUCOSE Routine 04/10/2025 12:12 PM CDT POC GLUCOSE Routine 04/10/2025 5:44 AM CDT BASIC METABOLIC PANEL Routine 04/10/2025 5:13 AM CDT CBC WITH DIFFERENTIAL Routine 04/10/2025 5:13 AM CDT HEMOGLOBIN AND HEMATOCRIT Routine 04/09/2025 11:26 PM CDT POC GLUCOSE Routine 04/09/2025 11:25 PM CDT HEMOGLOBIN AND HEMATOCRIT Routine 04/09/2025 5:36 PM CDT POC GLUCOSE Routine 04/09/2025 5:33 PM CDT HEMOGLOBIN AND HEMATOCRIT Routine 04/09/2025 1:08 PM CDT VANCOMYCIN LEVEL RANDOM Routine 04/09/2025 4:02 AM CDT COMPREHENSIVE METABOLIC PANEL Routine 04/09/2025 4:02 AM CDT CBC WITH DIFFERENTIAL Routine 04/09/2025 4:02 AM CDT TRANSFUSE PACKED RED BLOOD CELLS Routine 04/08/2025 8:54 PM CDT TYPE AND SCREEN Routine 04/08/2025 7:00 PM CDT PREPARE RED BLOOD CELLS Routine 04/08/2025 6:17 PM CDT HEMOGLOBIN AND HEMATOCRIT Routine 04/08/2025 5:37 PM CDT HEMOGLOBIN AND HEMATOCRIT Routine 04/08/2025 12:10 PM CDT POC GLUCOSE Routine 04/08/2025 4:05 AM CDT PROTIME-INR Routine 04/08/2025 4:03 AM CDT HAPTOGLOBIN Routine 04/08/2025 4:03 AM CDT COMPREHENSIVE METABOLIC PANEL Routine 04/08/2025 4:03 AM CDT CBC WITH DIFFERENTIAL Routine 04/08/2025 4:03 AM CDT POC GLUCOSE Routine 04/07/2025 11:58 PM CDT HEMOGLOBIN AND HEMATOCRIT Routine 04/07/2025 11:56 PM CDT HEMOGLOBIN AND HEMATOCRIT Routine 04/07/2025 5:38 PM CDT POC GLUCOSE Routine 04/07/2025 5:15 PM CDT HEMOGLOBIN AND HEMATOCRIT Routine 04/07/2025 2:02 PM CDT POC GLUCOSE Routine 04/07/2025 6:15 AM CDT DIFFERENTIAL, MANUAL Routine 04/07/2025 6:06 AM CDT PROTIME-INR Routine 04/07/2025 6:06 AM CDT HAPTOGLOBIN Routine 04/07/2025 6:06 AM CDT COMPREHENSIVE METABOLIC PANEL Routine 04/07/2025 6:06 AM CDT CBC WITH DIFFERENTIAL Routine 04/07/2025 6:06 AM CDT HEMOGLOBIN AND HEMATOCRIT Routine 04/07/2025 12:31 AM CDT POC GLUCOSE Routine 04/07/2025 12:30 AM CDT POC GLUCOSE Routine 04/06/2025 8:41 PM CDT HEMOGLOBIN AND HEMATOCRIT Routine 04/06/2025 4:38 PM CDT POC GLUCOSE Routine 04/06/2025 4:37 PM CDT POC GLUCOSE Routine 04/06/2025 8:10 AM CDT CK Routine 04/06/2025 3:14 AM CDT DIFFERENTIAL, MANUAL Routine 04/06/2025 3:14 AM CDT HAPTOGLOBIN Routine 04/06/2025 3:14 AM CDT VANCOMYCIN LEVEL RANDOM Timed Study 04/06/2025 3:14 AM CDT COMPREHENSIVE METABOLIC PANEL Routine 04/06/2025 3:14 AM CDT CBC WITH DIFFERENTIAL Routine 04/06/2025 3:14 AM CDT PROTIME-INR Routine 04/06/2025 3:14 AM CDT POC GLUCOSE Routine 04/06/2025 3:13 AM CDT HEMOGLOBIN AND HEMATOCRIT Routine 04/05/2025 11:22 PM CDT POC GLUCOSE Routine 04/05/2025 11:21 PM CDT POC GLUCOSE Routine 04/05/2025 8:38 PM CDT HEMOGLOBIN AND HEMATOCRIT Routine 04/05/2025 5:32 PM CDT POC GLUCOSE Routine 04/05/2025 5:24 PM CDT GC/CHLAMYDIA, UROGENITAL Routine 04/05/2025 4:21 PM CDT POC GLUCOSE Routine 04/05/2025 12:31 PM CDT POTASSIUM LEVEL Routine 04/05/2025 12:30 PM CDT Hypokalemia HEMOGLOBIN AND HEMATOCRIT Routine 04/05/2025 12:30 PM CDT HAPTOGLOBIN Stat 04/05/2025 12:30 PM CDT EXTRA TUBE (URINE IRAHETA) Routine 04/05/2025 10:41 AM CDT URINALYSIS W/REFLEX MICROSCOPIC Routine 04/05/2025 10:41 AM CDT URINE CULTURE Routine 04/05/2025 10:41 AM CDT DRUG SCREEN, URINE Routine 04/05/2025 10 :39 AM CDT EKG 12-LEAD Routine 04/05/2025 9:10 AM CDT ECHO COMPLETE Routine 04/05/2025 8:53 AM CDT POC GLUCOSE Routine 04/05/2025 8:50 AM CDT AMMONIA LEVEL Routine 04/05/2025 7:26 AM CDT TRANSFUSE PACKED RED BLOOD CELLS Routine 04/05/2025 5:46 AM CDT PREPARE RED BLOOD CELLS Stat 04/05/2025 3:55 AM CDT POC GLUCOSE Routine 04/05/2025 3:28 AM CDT PERIPHERAL BLOOD SMEAR PATHOLOGY INTERP Routine 04/05/2025 3:24 AM CDT DIFFERENTIAL, MANUAL Routine 04/05/2025 3:24 AM CDT PROTIME-INR Routine 04/05/2025 3:24 AM CDT COMPREHENSIVE METABOLIC PANEL Routine 04/05/2025 3:24 AM CDT CBC WITH DIFFERENTIAL Routine 04/05/2025 3:24 AM CDT LACTATE DEHYDROGENASE Routine 04/05/2025 3:24 AM CDT POC GLUCOSE Routine 04/05/2025 12:10 AM CDT POC GLUCOSE Routine 04/04/2025 11:19 PM CDT VANCOMYCIN LEVEL RANDOM Routine 04/04/2025 10:52 PM CDT HEMOGLOBIN AND HEMATOCRIT Routine 04/04/2025 10:52 PM CDT TROPONIN 6 HR, 5TH GEN Timed Study 04/04/2025 10:52 PM CDT LACTIC ACID Routine 04/04/2025 10:42 PM CDT ETHANOL LEVEL Routine 04/04/2025 10:42 PM CDT COMPREHENSIVE METABOLIC PANEL Routine 04/04/2025 10:42 PM CDT POC LACTIC ACID Routine 04/04/2025 10:40 PM CDT BLOOD GAS ARTERIAL Routine 04/04/2025 10 :40 PM CDT US ABDOMEN COMPLETE Routine 04/04/2025 9 :03 PM CDT US PELVIS COMPLETE Routine 04/04/2025 8: 59 PM CDT HEPATITIS C RNA PCR, QUANTITATIVE Routine 04/04/2025 8:44 PM CDT ACUTE HEPATITIS PANEL Routine 04/04/2025 8:44 PM CDT TROPONIN 2 HR, 5TH GEN Timed Study 04/04/2025 8:44 PM CDT TRANSFUSE PACKED RED BLOOD CELLS Routine 04/04/2025 7:57 PM CDT XR CHEST PA OR AP 1 VW Stat 04/04/2025 6:28 PM CDT PREPARE RED BLOOD CELLS Routine 04/04/2025 5:55 PM CDT TYPE AND SCREEN Routine 04/04/2025 5:53 PM CDT POC GLUCOSE Routine 04/04/2025 5:29 PM CDT DIFFERENTIAL, MANUAL Routine 04/04/2025 5:27 PM CDT RETICULOCYTES Routine 04/04/2025 5:27 PM CDT TROPONIN BASELINE, 5TH GEN Stat 04/04/2025 5:27 PM CDT HCG QUANTITATIVE, BLOOD Routine 04/04/2025 5:27 PM CDT PROCALCITONIN Routine 04/04/2025 5:27 PM CDT PROTIME-INR Routine 04/04/2025 5:27 PM CDT PHOSPHORUS Routine 04/04/2025 5:27 PM CDT MAGNESIUM LEVEL Routine 04/04/2025 5:27 PM CDT LACTIC ACID Stat 04/04/2025 5:27 PM CDT CBC WITH DIFFERENTIAL Routine 04/04/2025 5:27 PM CDT EKG 12-LEAD Routine 04/04/2025 5:03 PM CDT MRSA PCR RAPID SCREEN Routine 04/04/2025 4:24 PM CDT RESPIRATORY PATHOGEN PCR PANEL Stat 04/04/2025 4:24 PM CDT BLOOD CULTURE Stat 04/04/2025 1:30 PM CDT BLOOD CULTURE Stat 04/04/2025 1:30 PM CDT TYPE AND SCREEN Stat 04/04/2025 1:25 PM CDT BLOOD CULTURE Stat 04/04/2025 1:25 PM CDT BLOOD CULTURE Stat 04/04/2025 1:[address] ABDOMEN PELVIS WO CONTRAST Stat 04/04/2025 12:59 PM CDT PREPARE RED BLOOD CELLS Stat 04/04/2025 12:38 PM CDT VERIFICATION BLOOD GROUP Stat 04/04/2025 11:28 AM CDT DIFFERENTIAL, MANUAL Stat 04/04/2025 11:28 AM CDT MAGNESIUM LEVEL Stat 04/04/2025 11:28 AM CDT C-REACTIVE PROTEIN Stat 04/04/2025 11 :28 AM CDT LACTIC ACID Stat 04/04/2025 11:28 AM CDT BRAIN NATRIURETIC PEPTIDE, BNP OR PROBNP Stat 04/04/2025 11:28 AM CDT SEDIMENTATION RATE Stat 04/04/2025 11 :28 AM CDT COMPREHENSIVE METABOLIC PANEL Stat 04/04/2025 11:28 AM CDT CBC WITH DIFFERENTIAL Stat 04/04/2025 11:28 AM CDT from Last 3 Months Results * TELEMETRY REPORT (04/12/2025 2:46 PM CDT) us Provider Scanning ECG ORDERABLES Final Result * POC GLUCOSE (04/11/2025 5:25 PM CDT) Only the most recent of28 resultswithin the time period is included. GLUCOSE POC 99 74 - 99 mg/dL 04/11/2025 5:25 PM CDT [facility] SPECIMEN SOURCE, GLUCOSE POC Venous 04/11/2025 5:25 PM CDT [facility] Blood, whole 04/11/2025 5:25 PM CDT 04/11/2025 5:33 PM CDT Geoffrey Rasmussen MD POINT OF CARE TESTING Final Result Performing Organization Address City/[facility]/ZIP Co de Phone Number [facility] CLIA # [id number] [facility] [phone] * (ABNORMAL) HEMOGLOBIN AND HEMATOCRIT (04/11/2025 5:25 PM CDT) Only the most recent of19 resultswithin the time period is included. Pathologist [facility] HEMOGLOBIN 7.8(L) 12.0 - 16.0 g/dL 04/11/2025 6:04 PM CDT [facility] HEMATOCRIT 24.6(L) 36.0 - 46.0 % 04/11/2025 6:04 PM CDT [facility] Blood Venipuncture / Unknown 04/11/2025 5:25 PM CDT 04/11/2025 5:46 PM CDT Marlen Saure MD HEMATOLOGY ORDERABLES Final Resu lt [facility] CLIA # [id number] [facility] [id number] * HEMODIALYSIS (04/11/2025 11:50 AM CDT) Narrative Mayelin Zayas MD - 04/11/2025 11:50 AM CDT Mayelin Zayas MD 04/11/2025 11:52 AM [facility] - Procedure Note Primary Shared Services And Outsourcing Manager: Dr. Sarah Freeman PROCEDURE: Intermittent Hemodialysis INDICATION: end stage renal disease Procedure: Utilizing the patient's hemodialysis line as a vascular access, the patient was initiated on hemodialysis. Dialysis is planned for 4 hours. Blood flow of 400 ml per minute and Dialysate flow of 800 ml per minute were prescribed. The bath used was 3 mEq/L potassium, 2.5 mEq/L calcium, 140 mEq/L sodium and 35 mEq/L bicarbonate. UF goal: 2.0 L, BP stable. Revaclear 300 hollow fiber dialyzer was used. No heparin was used for anticoagulation. No complications have been encountered to this point. I was present during dialysis, and was available for the entirety of the dialysis treatment. # Compliant with frequency and duration of dialysis: yes Physical Exam: BP (!) 157/85 Pulse 84 Temp 98.1 F (36.7 C) (Axillary) Resp 16 Ht 5' 2 (1.575 m) Wt 73.3 kg (161 lb 9.6 oz) LMP 04/01/2025 SpO2 95% BMI 29.56 kg/m On 2 L NC oxygen, normal RR, NAD Assesment and Plan: End stage renal disease - continue hemodialysis Tuesday, and Tuesday Mayelin Zayas MD [facility] 04/11/25, 11:50 AM us Simon Salazar MD DIALYSIS ORDERABLES Final Re sult * (ABNORMAL) CBC WITH DIFFERENTIAL (04/11/2025 4:05 AM CDT) Only the most recent of9 resultswithin the time period is included. WBC 12.2(H) 4.5 - 11.0 K/uL 04/11/2025 4:31 AM T [facility] RBC 2.53(L) 4.20 - 5.40 M/uL 04/11/2025 4:31 AM CDT [facility] HEMOGLOBIN 7.7(L) 12.0 - 16.0 g/dL 04/11/2025 4:31 AM T [facility] HEMATOCRIT 23.8(L) 36.0 - 46.0 % 04/11/2025 4:31 AM [facility] MCV 94.1 84.0 - 103.0 fL 04/11/2025 4:31 AM [facility] MCH 30.4 27.0 - 34.0 pg 04/11/2025 4:31 AM [facility] MCHC 32.4 30.0 - 35.0 g/dL 04/11/2025 4:31 AM [facility] PLATELETS 110(L) 140 - 440 K/uL 04/11/2025 4:31 AM [facility] MPV 11.5 8.9 - 12.8 fL 04/11/2025 4:31 AM [facility] RDW 18.3(H) 11.0 - 14.5 % 04/11/2025 4:31 AM [facility] RDW-STDEV 61.3(H) 37.0 - 54.0 fL 04/11/2025 4:31 AM [facility] NEUTROPHILS 70 42 - 75 % 04/11/2025 4:31 AM [facility] LYMPHOCYTES 16(L) 24 - 44 % 04/11/2025 4:31 AM [facility] MONOCYTES 10 2 - 10 % 04/11/2025 4:31 AM [facility] EOSINOPHILS 4 0 - 7 % 04/11/2025 4:31 AM [facility] BASOPHILS 0 0 - 1 % 04/11/2025 4:31 AM [facility] IMMATURE GRANULOCYTES 1 0 - 2 % 04/11/2025 4:31 AM [facility] NEUTROPHIL ABSOLUTE 8.60(H) 2.00 - 8.00 K/uL 04/11/2025 4:31 AM [facility] LYMPHOCYTE ABSOLUTE 1.91 1.20 - 4.00 K/uL 04/11/2025 4:31 AM [facility] MONOCYTE ABSOLUTE 1.20(H) 0.10 - 0.60 K/uL 04/11/2025 4:31 AM CDT [facility] EOSINOPHIL ABSOLUTE 0.43 0.00 - 0.70 K/uL 04/11/2025 4:31 AM CDT [facility] BASOPHILS ABSOLUTE 0.01 0.00 - 0.20 K/uL 04/11/2025 4:31 AM CDT [facility] IMMATURE GRANULOCYTES ABSOLUTE 0.07 0.00 - 0.10 K/uL 04/11/2025 4:31 AM T [facility] SMEAR REVIEWED: NA - Not Applicable 04/11/2025 4:31 AM [facility] Blood Venipuncture / Unknown 04/11/2025 4:05 AM CDT 04/11/2025 4:16 AM CDT us Toya BYRNES HEMATOLOGY ORDERABLES Final Res ult [facility] CLIA # [id number] [address] [place] [id number] * (ABNORMAL) BASIC METABOLIC PANEL (04/11/2025 4:05 AM CDT) Only the most recent of2 resultswithin the time period is included. SODIUM 132(L) 136 - 145 mmol/L 04/11/2025 5:00 AM [facility] POTASSIUM 4.1 3.5 - 5.1 mmol/L 04/11/2025 5:00 AM [facility] CHLORIDE 96(L) 98 - 107 mmol/L 04/11/2025 5:00 AM [facility] CO2 24 22 - 29 mmol/L 04/11/2025 5:00 AM [facility] CALCIUM 9.1 8.6 - 10.0 mg/dL 04/11/2025 5:00 AM [facility] BUN 41(H) 6 - 20 mg/dL 04/11/2025 5:00 AM [facility] CREATININE 5.57(H) 0.51 - 0.95 mg/dL 04/11/2025 5:00 AM CDT [facility] GLUCOSE 93 74 - 99 mg/dL 04/11/2025 5:00 AM CDT [facility] GFR 10(L) >=60 mL/min/1. 73 sq meter 04/11/2025 5:00 AM CDT [facility] Comment:eGFR calculated with 2020 CKD-EPI equation. Vegetarian diet, extremely high or low muscle mass, and may affect results. Cystatin C with Glomerular Filtration Rate is a suitable alternative for these patients. ANION GAP 12 9 - 20 mmol/L 04/11/2025 5:00 AM CDT [facility] Blood Venipuncture / Unknown 04/11/2025 4:05 AM CDT 04/11/2025 4:16 AM CDT us Mary Kate Reed NP CHEMISTRY ORDERABLES Final Re sult Performing Organization Address [facility] de Phone Number [facility] CLIA # [id number] [address] [place] [id number] * VANCOMYCIN LEVEL RANDOM (04/09/2025 4:02 AM CDT) Only the most recent of3 resultswithin the time period is included. VANCOMYCIN, RANDOM 14.7 5.0 - 50.0 ug/mL 04/09/2025 4:44 AM CDT [facility] Blood Venipuncture / Unknown 04/09/2025 4:02 AM CDT 04/09/2025 4:12 AM CDT Narrative [facility] - 04/09/2025 4:44 AM CDT Vancomycin Therapeutic Ranges: Vancomycin Trough: 10 - 20 mcg/mL Vancomycin Peak: 25 - 50 mcg/mL Marlen Sauer MD CHEMISTRY ORDERABLES Final Resul t Performing Organization Address [facility]/ZIP Co de Phone Number [facility] CLIA # [id number] [address] [address] [place] [address] * (ABNORMAL) COMPREHENSIVE METABOLIC PANEL (04/09/2025 4:02 AM CDT) Only the most recent of7 resultswithin the time period is included. SODIUM 132(L) 136 - 145 mmol/L 04/09/2025 4:45 AM T [facility] POTASSIUM 4.3 3.5 - 5.1 mmol/L 04/09/2025 4:45 AM T [facility] CHLORIDE 97(L) 98 - 107 mmol/L 04/09/2025 4:45 AM [facility] CO2 20(L) 22 - 29 mmol/L 04/09/2025 4:45 AM [facility] CALCIUM 8.6 8.6 - 10.0 mg/dL 04/09/2025 4:45 AM [facility] BUN 62(H) 6 - 20 mg/dL 04/09/2025 4:45 AM [facility] CREATININE 6.81(H) 0.51 - 0.95 mg/dL 04/09/2025 4:45 AM [facility] GLUCOSE 88 74 - 99 mg/dL 04/09/2025 4:45 AM [facility] TOTAL PROTEIN 6.0(L) 6.4 - 8.3 g/dL 04/09/2025 4:45 AM [facility] ALBUMIN 3.0(L) 3.5 - 5.2 g/dL 04/09/2025 4:45 AM [facility] BILIRUBIN TOTAL 1.0 0.0 - 1.0 mg/dL 04/09/2025 4:45 AM [facility] ALKALINE PHOSPHATASE 105(H) 35 - 104 U/L 04/09/2025 4:45 AM [facility] AST 139(H) 10 - 35 U/L 04/09/2025 4:45 AM [facility] ALT 383(H) <=35 U/L 04/09/2025 4:45 AM T [facility] GFR 8(L) >=60 mL/min/1. 73 sq meter 04/09/2025 4:45 AM T [facility] Comment:eGFR calculated with 2020 CKD-EPI equation. Vegetarian diet, extremely high or low muscle mass, and may affect results. Cystatin C with Glomerular Filtration Rate is a suitable alternative for these patients. ANION GAP 15 9 - 20 mmol/L 04/09/2025 4:45 AM CDT [facility] Blood Venipuncture / Unknown 04/09/2025 4:02 AM CDT 04/09/2025 4:12 AM CDT us Marlen Sauer MD CHEMISTRY ORDERABLES Final Resul t [facility] # [id number] [address] [place] [id number] * TRANSFUSE RED BLOOD CELLS (04/09/2025 12:54 AM CDT) Only the most recent of4 resultswithin the time period is included. us Boston Chung III, DO BLOOD TRANSFUSION ORDERAB LES Final Result * TYPE AND SCREEN (04/08/2025 7:00 PM CDT) Only the most recent of3 resultswithin the time period is included. ABO GROUP O 04/08/2025 7:57 PM CDT [facility] RH (D) TYPE Negative 04/08/2025 7:57 PM CDT [facility] ANTIBODY SCREEN Negative 04/08/2025 7:57 PM CDT [facility] Blood Venipuncture / Unknown 04/08/2025 7:00 PM CDT 04/08/2025 7:08 PM CDT us Boston O Chung III, DO BLOOD BANK ORDERABLES Sheldon jamaica Result - Final Performing Organization Address [facility]/ZIP Co de Phone Number [facility] [place] CLIA#[id number] [address] [place] [address], * PREPARE RED BLOOD CELLS (04/08/2025 6:17 PM CDT) Only the most recent of4 resultswithin the time period is included. COMPONENT TYPE [id number] [facility] [place] COMPONENT IDENTIFICATION [id number] [facility] [place] UNIT ABO O [facility] [place] UNIT RH NEG [facility] [place] CROSSMATCH Compatible [facility] [place] COMPONENT STATUS Transfused ME [facility] [place] COMPONENT EXPIRATION DATE/TIME [id number] [facility] [place] COMPONENT CODING SYSTEM 9500 [facility] [place] VOLUME, BLOOD PRODUCT 350 [facility] [place] Other, specify 04/08/2025 6: 17 PM CDT us Boston Chung III, DO LAB TRANSFUSION ORDERABLE S Edited Result - Final Performing Organization Address [facility] Co de Phone Number [facility] [place] CLIA#[id number] [address] [place] [address], * (ABNORMAL) PROTIME-INR (04/08/2025 4:03 AM CDT) Only the most recent of5 resultswithin the time period is included. PROTIME 15.8(H) 12.7 - 14.9 Seconds 04/08/2025 4:22 AM CDT [facility] INR 1.2 0.8 - 1.2 04/08/2025 4:22 AM CDT [facility] Blood Venipuncture / Unknown 04/08/2025 4:03 AM CDT 04/08/2025 4:10 AM CDT Narrative [facility] - 04/08/2025 4:22 AM CDT Expected Values for INR: DVT/PE Goal INR 2.5; range 2.0 - 3.0 Valve Replacement Tissue Goal INR 2.5; range 2.0 - 3.0 Valve Replacement Mechanical Goal INR 3.0; range 2.5 - 3.5 POST-FL Goal INR 2.5; range 2.0 - 3.0 or Goal INR 3.0; range 2.5 - 3.5 Atrial Fibrillation Goal INR 2.5; range 2.0 - 3.0 Ischemic Stroke Goal INR 2.5; range 2.0 - 3.0 Marlen Sauer MD HEMATOLOGY ORDERABLES Final Resu lt Performing Organization Address [facility] Co de Phone Number [facility] CLIA # [id number] [address] [address] [place], [place] [id number] * (ABNORMAL) HAPTOGLOBIN (04/08/2025 4:03 AM CDT) Only the most recent of4 resultswithin the time period is included. HAPTOGLOBIN <10(L) 30 - 200 mg/dL 04/08/2025 5:04 AM CDT [facility] Blood Venipuncture / Unknown 04/08/2025 4:03 AM CDT 04/08/2025 4:11 AM CDT Marlen Sauer MD CHEMISTRY ORDERABLES Final Resul t Performing Organization Address [facility]/ZIP Co de Phone Number [facility] CLIA # [id number] [address] [address] [place] [address] * (ABNORMAL) MANUAL DIFFERENTIAL (04/07/2025 6:06 AM CDT) Only the most recent of5 resultswithin the time period is included. SEGMENTED NEUTROPHILS 73(H) 36 - 66 % 04/07/2025 6:49 AM [facility] LYMPHOCYTES RELATIVE 9(L) 24 - 44 % 04/07/2025 6:49 AM [facility] MONOCYTES RELATIVE 7 4 - 10 % 2024 6:49 AM [facility] EOSINOPHILS RELATIVE 1 0 - 3 % 04/07/2025 6:49 AM [facility] METAMYELOCYTES RELATIVE 5(H) 0 - 1 % 04/07/2025 6:49 AM [facility] MYELOCYTES - REL (DIFF) 5(H) 0 - 1 % 04/07/2025 6:49 AM [facility] PLATELET EST. Decreased 04/07/2025 6:49 AM [facility] NEUTROPHILS ABSOLUTE COUNT 11.17(H) 2.00 - 8.00 K/uL 04/07/2025 6:49 AM [facility] LYMPHOCYTES ABSOLUTE 1.38 1.20 - 4.00 K/uL 04/07/2025 6:49 AM [facility] ATYPICAL LYMPHS ABSOLUTE 04/07/2025 6:49 AM [facility] MONOCYTES ABSOLUTE 1.07(H) 0.10 - 0.60 K/uL 04/07/2025 6:49 AM [facility] EOSINOPHILS ABSOLUTE 0.15 0.00 - 0.70 K/uL 04/07/2025 6:49 AM [facility] ANISOCYTOSIS 2+ /hpf 04/07/2025 6:49 AM [facility] POIKILOCYTES 2+ /hpf 04/07/2025 6:49 AM [facility] POLYCHROMASIA 2+ /hpf 04/07/2025 6:49 AM [facility] TOTAL CELLS COUNTED IN DIFF 100 04/07/2025 6:49 AM [facility] Blood Venipuncture / Unknown 04/07/2025 6:06 AM CDT 04/07/2025 6:22 AM CDT Marlen Sauer MD HEMATOLOGY ORDERABLES COM Final Result Performing Organization Address [facility] Co de Phone Number [facility] CLIA # [id number] [address] [address] [place] [address] * (ABNORMAL) CK (04/06/2025 3:14 AM CDT) [facility] CK 3,001(H) 26 - 192 U/L 04/06/2025 10:21 AM CDT [facility] Blood Venipuncture / Unknown 04/06/2025 3:14 AM CDT 04/06/2025 3:29 AM CDT us Simon Salazar MD CHEMISTRY ORDERABLES Final R esult Performing Organization Address [facility] de Phone Number [facility] CLIA # [id number] [facility] [address] * GC/CHLAMYDIA, UROGENITAL (04/05/2025 4:21 PM CDT) [facility] CHLAMYDIA DNA AMPLIFICATION NOT DETECTED Not Detected 04/05/2025 6:02 PM CDT [facility] GC DNA AMPLIFICATION NOT DETECTED Not Detected 04/05/2025 6:02 PM CDT [facility] Genital SPECIMEN FROM VAGINA / Unknown Collection / Unknown 04/05/2025 4:21 PM CDT 04/05/2025 4:29 PM CDT Narrative [facility] - 04/05/2025 6:02 PM CDT Results should not be used for the evaluation of suspected sexual abuse or for other medico-legal indications. The only legally accepted results are from culture. Results cannot be used to assess therapeutic success or failure since nucleic acids may persist following antimicrobial therapy. us Marlen Sauer MD MICROBIOLOGY - GENERAL ORDERABLE S Final Result Performing Organization Address City/[facility]/ZIP Co de Phone Number [facility] CLIA # [id number] [address] [address] [place] [address] * POTASSIUM LEVEL (04/05/2025 12:30 PM CDT) Pathologist [facility] POTASSIUM 3.9 3.5 - 5.1 mmol/L 04/05/2025 1:07 PM CDT [facility] Blood Venipuncture / Unknown 04/05/2025 12:30 PM CDT 04/05/2025 12:39 PM CDT Marlen Sauer MD CHEMISTRY ORDERABLES Final Resul t Performing Organization Address City/[facility] Co de Phone Number [facility] CLIA # [id number] [address] [address] [place] [address] * EXTRA TUBE (URINE IRAHETA) (04/05/2025 10:41 AM CDT) Urine (Urine, straight in/out catheter) Collection / Unknown 04/05/2025 10:41 AM CDT 04/05/2025 10:47 AM CDT Marlen Sauer MD URINE ORDERABLES Final Result Performing Organization Address [facility] Co de Phone Number [facility] CLIA # [id number] [address] [address] * (ABNORMAL) URINALYSIS WITH REFLEX MICROSCOPIC (04/05/2025 10:41 AM CDT) COLOR UA Brown(A) Pale to Dark Yellow 04/05/2025 11:02 AM CDT [facility] CLARITY UA Turbid(A) Clear 04/05/2025 11:02 AM CDT [facility] SPECIFIC GRAVITY UA 1.014 1.003 - 1.035 04/05/2025 11:02 AM [facility] PH UA 7.5 5.0 - 8.0 04/05/2025 11:02 AM [facility] LEUKOCYTE ESTERASE UA 3+(A) Negative 04/05/2025 11:02 AM [facility] NITRITE UA Negative Negative 04/05/2025 11:02 AM [facility] PROTEIN UA 2+(A) Negative 04/05/2025 11:02 AM [facility] GLUCOSE UA Negative Negative 04/05/2025 11:02 AM [facility] KETONES UA Unable to Evaluate(A) Negative 04/05/2025 11:02 AM [facility] Comment:MEDICATION/COLOR INT ERFERENCE UROBILINOGEN UA Unable to Evaluate(A) <2.0 mg/dL 04/05/2025 11:02 AM [facility] Comment:MEDICATION/COLOR INT ERFERENCE BILIRUBIN UA Unable to Evaluate(A) Negative 04/05/2025 11:02 AM [facility] Comment:MEDICATION/COLOR INT ERFERENCE BLOOD UA Unable to Evaluate(A) Negative 04/05/2025 11:02 AM [facility] Comment:MEDICATION/COLOR INT ERFERENCE WBC UA >100(A) 0 - 2 /hpf 04/05/2025 11:02 AM [facility] RBC UA >100(A) 0 - 2 /hpf 04/05/2025 11:02 AM [facility] BACTERIA UA 4+(A) Negative /hpf 04/05/2025 11:02 AM [facility] EPITHELIAL CELLS, URINE >25(A) 0 - 5 /hpf 04/05/2025 11:02 AM [facility] WBC CLUMPS Present(A) Absent 04/05/2025 11:02 AM [facility] Urine (Urine, straight in/out catheter) Collection / Unknown 04/05/2025 10:41 AM CDT 04/05/2025 10:47 AM CDT us Marlen Sauer MD URINE ORDERABLES Final Result [facility] CLIA # [id number] [facility] [address] [place] [address] * (ABNORMAL) URINE CULTURE (04/05/2025 10:41 AM CDT) CULTURE PROTEUS MIRABILIS(A) JORGE LUIS MCG/ML 04/07/2025 7:12 AM CDT [facility] Urine (Urine, straight in/out catheter) Collection / Unknown 04/05/2025 10:41 AM CDT 04/05/2025 10:47 AM CDT Narrative Organism Antibiotic Method Susceptibility Proteus mirabilis CEFAZOLIN JORGE LUIS MCG/ML <=4 mcg/mL: Susceptible Comment:Cefazolin phillips sceptible interpretation applies to uncomplicated urinary tract infections (UTI) only. If patient has a complicated UTI consider either using a 3rd generation cephalosporin (ie- ceftriaxone). If cefazolin susceptibility testing is necessary for treatment of this patient, contact Microbiology for additional testing. Proteus mirabilis CEFTRIAXONE JORGE LUIS MCG/ML <=1 mcg/mL: Susceptible Proteus mirabilis GENTAMICIN JORGE LUIS MCG/ML <=1 mcg/mL: Susceptible Proteus mirabilis TOBRAMYCIN JORGE LUIS MCG/ML <=1 mcg/mL: Susceptible Proteus mirabilis CIPROFLOXACIN JORGE LUIS MCG/ML <=0.25 mcg/mL: Susceptible Proteus mirabilis LEVOFLOXACIN JORGE LUIS MCG/ML <=0.12 mcg/mL: Susceptible Proteus mirabilis TRIMETHOPRIM/ SULFAMETHOXAZOLE JORGE LUIS MCG/ML <=20 mcg/mL: Susceptible Proteus mirabilis NITROFURANTOIN JORGE LUIS MCG/ML 128 mcg/mL: Resistant Proteus mirabilis AMPICILLIN JORGE LUIS MCG/ML <=2 mcg/mL: Susceptible Proteus mirabilis AMPICILLIN/ SULBACTAM JORGE LUIS MCG/ML <=2 mcg/mL: Susceptible Proteus mirabilis PIPERACILLIN/ TAZOBACTAM JORGE LUIS MCG/ML <=4 mcg/mL: Susceptible Comment:Aminoglycosides shou ld not be used as monotherapy for infections outside the urinary tract. Consultation with an infectious diseases specialist is recommended. Marlen Sauer MD MICROBIOLOGY - GENERAL ORDERABLE S Final Result [facility] CLIA # [id number] [address] [address] [place] [address] * (ABNORMAL) DRUG SCREEN, URINE (04/05/2025 10:39 AM CDT) [facility] AMPHETAMINE QUAL, URINE Presumptive Positive(A) Negative 04/05/2025 11:30 AM CDT [facility] BARBITURATE QUAL, URINE Negative Negative 04/05/2025 11:30 AM CDT [facility] BENZODIAZEPINE QUAL, URINE Presumptive Positive(A) Negative 04/05/2025 11:30 AM CDT [facility] COCAINE QUAL URINE Negative Negative 04/05/2025 11:30 AM CDT [facility] OPIATE QUAL, URINE Negative Negative 04/05/2025 11:30 AM CDT [facility] CANNABINOIDS QUAL, URINE Presumptive Positive(A) Negative 04/05/2025 11:30 AM CDT [facility] OXYCODONE QUAL, URINE Negative Negative 04/05/2025 11:30 AM CDT [facility] METHADONE QUAL, URINE Negative Negative 04/05/2025 11:30 AM CDT [facility] FENTANYL QUAL, URINE Negative Negative 04/05/2025 11:30 AM CDT [facility] CREATININE, URINE 24.8(L) 29.0 - 226.0 mg/dL 04/05/2025 11:30 AM T [facility] Comment:Reference Range vari es with fluid intake and diet. Urine (Urine, straight in/out catheter) Collection / Unknown 04/05/2025 10:39 AM CDT 04/05/2025 10:47 AM CDT Narrative [facility] - 04/05/2025 11:30 AM CDT This test is a qualitative screen. The presumptive positive results should not be used for legal purposes. If confirmation of results is desired, the lab must be contacted without delay. Drug Ref. Range Screening Threshold Amphetamines Negative 500 ng/mL Barbiturates Negative 200 ng/mL Benzodiazepines Negative 100 ng/mL Cannabinoids Negative 50 ng/mL Cocaine Metabolite Negative 300 ng/mL Opiate Negative 300 ng/mL Oxycodone Negative 100 ng/mL Methadone Negative 300 ng/mL Fentanyl Negative 5 ng/mL Marlen Sauer MD URINE ORDERABLES Final Result [facility] CLIA # [id number] [facility] [place] [address] * EKG 12-LEAD (04/05/2025 9:10 AM CDT) Only the most recent of2 resultswithin the time period is included. 04/05/2025 9:10 AM CDT Narrative INTERFACE SYSTEM - 04/05/2025 6:24 PM [address]T [address] [address] Test Date: 2025-04-05 Pat Name: SERA LITTLE Department: 12 Room: [address] [place] [address] Gender: Female [employer]: [id number] : 1990 Requested By: Order Number: [id number] Reading MD: Christina Campos Measurements Intervals [place]ays Rate: 82 P: 55 VA: 132 QRS: 63 QRSD: 104 T: 93 QT: 454 QTc: 530 Interpretive Statements Normal sinus rhythm Possible Left atrial enlargement Nonspecific ST abnormality Prolonged QT Abnormal ECG Electronically Signed On 04-05-2025 18:24:13 CDT by Christina Campos Procedure Note Christina Campos, - 04/05/[address] [address] Test Date: 2025-04-05 Pat Name: SERA SIDNEY Department: 12 Room: [address] [place] [address] Gender: Female [employer]: [id number] : 1990 Requested By: Order Number: [id number] Reading MD: Christina Campos Measurements Intervals [place] Rate: 82 P: 55 VA: 132 QRS: 63 QRSD: 104 T: 93 QT: 454 QTc: 530 Interpretive Statements Normal sinus rhythm Possible Left atrial enlargement Nonspecific ST abnormality Prolonged QT Abnormal ECG Electronically Signed On 04-05-2025 18:24:13 CDT by Christina Campos us Marlen Sauer MD ECG ORDERABLES Final Result INTERFACE SYSTEM Refer to clinic/hospital department * ECHO COMPLETE - CONTRAST AND STRAIN IF INDICATED (04/05/2025 8:53 AM CDT) EJECTION FRACTION 65 INTERFACE SYSTEM 04/05/2025 8:05 AM CDT Narrative INTERFACE SYSTEM - 04/05/2025 9:04 AM CDT [facility] Echocardiography Laboratory [address] [place] [id number] Transthoracic Echocardiography Patient: Sera Little Study ID: ECHO COMPLETE Jemal Yoo Gender: F : 1990 Age: 34 Room: [facility] Study 04/05/2025 Pt Inpatient Date: Status: Study 08:05:11 AM [facility] #: [id number] Time: Ordering:Vale Ballard Word Processing Operator: Jillian Chaves [facility] Indications and History: Endocarditis Acute/subacute bacterial. Summary and Conclusion: - Left ventricle: The cavity size is normal. Wall thickness is increased in a pattern of moderate to severe LVH. There is concentric hypertrophy. Global systolic function is normal. The estimated ejection fraction is 60-65%. For Epic reporting: the left ventricular ejection fraction is 65% No diagnostic regional wall motion abnormality identified. Findings consistent with left ventricular diastolic dysfunction. The global longitudinal strain is -10% (Normal range is -18 to -25). - Right ventricle: The cavity size is normal. Systolic function is normal. Systolic pressure is within the normal range. - Left atrium: The atrium is mildly dilated. - Aortic valve: Not well visualized. The mean systolic gradient is 10mm Hg. - Mitral valve: Not well visualized. A bioprosthesis is present. There is moderate to severe regurgitation. Regurgitation might be severe. The regurgitation might be paravalvular. - Tricuspid valve: There is moderate regurgitation. - Pulmonic valve: There is mild regurgitation. Comparison: Compared to the prior study, prosthetic mitral valve as above. Previou study had shown presence of vegetation. Procedure information: Comparison is made to the study of 02/20/2025. Study status: Routine. Procedure: A transthoracic echocardiogram was performed. Image quality was adequate. Scanning was performed from the parasternal, apical, subcostal, and suprasternal notch acoustic windows. Study components: M-mode, 2D, complete spectral Doppler, and color Doppler. Height: 157.5cm. Height: 62in. Weight: 72.5kg. Weight: 159.8lb. BMI: 29.2kg/m^2. BSA: 1.8m^2. Blood pressure: 159/90 Study date: 04/05/2025. Study time: 08:05 AM. Location: ICU/CCU Cardiac Anatomy: LEFT VENTRICLE: The cavity size is normal. Wall thickness is increased in a pattern of moderate to severe LVH. There is concentric hypertrophy. Global systolic function is normal. The estimated ejection fraction is 60-65%. For Epic reporting: the left ventricular ejection fraction is 65% No diagnostic regional wall motion abnormality identified. The longitudinal strain is -10.2% (Normal range is -18 to -25).. The global longitudinal strain is -10% (Normal range is -18 to -25). Findings consistent with left ventricular diastolic dysfunction. RIGHT VENTRICLE: The cavity size is normal. Systolic function is normal. Systolic pressure is within the normal range. LEFT ATRIUM: The atrium is mildly dilated. RIGHT ATRIUM: The atrium is normal in size. ATRIAL SEPTUM: No obvious PFO or ASD identified by 2D imaging and color Doppler. AORTIC VALVE: Not well visualized. There is no stenosis. There is no significant regurgitation. MITRAL VALVE: Not well visualized. A bioprosthesis is present. Mobility is not restricted. No evidence for prolapse. There is no evidence for stenosis. There is moderate to severe regurgitation. Regurgitation might be severe. The regurgitation might be paravalvular. TRICUSPID VALVE: Structurally normal valve. Mobility is unrestricted. There is no evidence for stenosis. There is moderate regurgitation. PULMONIC VALVE: Not well visualized. The valve appears to be grossly normal. There is no evidence for stenosis. There is mild regurgitation. PERICARDIUM: There is no pericardial effusion. AORTA: Aortic root: The root is not dilated. Aortic arch: The vessel is not dilated. INTRACARDIAC MASS THROMBUS: No apparent intracavitary masses or thrombi detected. Measurements Left ventricle Value LVOT continued Value GLS, 2D -10.2 % Mean ryan, S 64.4 cm/sec IVS, ED, LAX 2.2 cm VTI, S 22.0 cm ESD, LAX 2.4 cm Peak grad, S 5 mm Hg ESD/bsa, LAX 1.3 cm/m^2 SV 55 ml FS, LAX 40 % SV/bsa 30 ml/m^2 FS, LAX chord 40 % ESD major ax, A4C 8.1 cm Right ventricle Value ESD/bsa major ax, A4C 4.5 cm/m^2 SHEKHAR, LAX 3.3 cm SHEKHAR minor ax, A4C 8.1 cm SHEKHAR minor ax, A4C base 3.7 cm SHEKHAR/bsa minor ax, A4C 4.5 cm/m^2 SHEKHAR minor ax, A4C mid 2.8 cm KHADRA, A4C 35.0 cm^2 SHEKHAR 3.3 cm MALGORZATA, A4C 19.5 cm^2 TAPSE, 2D 1.1 cm FAC, A4C 44 % TAPSE, MM 1.1 cm SHEKHAR major ax, A2C 10.5 cm S' lateral 7.0 cm/sec SHEKHAR/bsa major ax, A2C 5.8 cm/m^2 KHADRA, A2C 30.9 cm^2 Left atrium Value MALGORZATA, A2C 21.5 cm^2 AP dim, ES 4.0 cm FAC, A2C 30 % AP dim index, ES 2.2 cm/m^2 IVS, ED 1.6 cm Area ES, A4C 22 cm^2 PW, ED 1.9 cm SI dim, A2C 5.7 cm IVS/PW, ED 0.88 Vol, ES, 1-p A4C 70 ml EDV 70 ml Vol/bsa, ES, 1-p A4C 39 ml/m^2 ESV 21 ml Vol, ES, 1-p A2C 95 ml EF 71 % Vol/bsa, ES, 1-p A2C 53 ml/m^2 SV 55 ml Vol, ES, 2-p 82 ml EDV/bsa 39 ml/m^2 Vol/bsa, ES, 2-p 46 ml/m^2 ESV/bsa 11 ml/m^2 SV/bsa 30 ml/m^2 Right atrium Value EDV, 1-p A2C 88 ml Area, ES, A4C 9 cm^2 ESV, 1-p A2C 36 ml EF, 1-p A2C 41 % Aortic valve Value SV, 1-p A2C 50 ml Mean v, S 144 cm/sec EDV/bsa, 1-p A2C 49 ml/m^2 VTI, S 37.9 cm ESV/bsa, 1-p A2C 20 ml/m^2 Mean grad, S 10 mm Hg SV/bsa, 1-p A2C 27.6 ml/m^2 LVOT/AV, VTI ratio 0.58 EDV, 1-p A4C 99 ml BROOKE, VTI 1.46 cm^2 ESV, 1-p A4C 40 ml BROOKE/bsa, VTI 0.81 cm^2/m^2 EF, 1-p A4C 60 % LVOT/AV, Vmean ratio 0.45 SV, 1-p A4C 50 ml BROOKE, Vmean 1.1 cm^2 EDV/bsa, 1-p A4C 55 ml/m^2 BROOKE/bsa, Vmean 0.62 cm^2/m^2 ESV/bsa, 1-p A4C 22 ml/m^2 SV/bsa, 1-p A4C 28 ml/m^2 Mitral valve Value EDV, 2-p 100 ml Peak E 220 cm/sec ESV, 2-p 46 ml Peak A 139 cm/sec EF, 2-p 54 % Decel time 331 ms SV, 2-p 54 ml Peak grad, D 19 mm Hg EDV/bsa, 2-p 55 ml/m^2 Peak E/A ratio 1.6 ESV/bsa, 2-p 25 ml/m^2 Vena contracta width 3.3 cm SV/bsa, 2-p 34.4 ml/m^2 EDV, MM Teich. 70 ml Tricuspid valve Value EF, MM Teich. 71 % TR vena contracta width 1.8 cm EDV/bsa, MM Teich. 39 ml/m^2 Peak RV-RA grad, S 46 mm Hg EF, MM on 2D Teich. 71 % Descending aorta Value LVOT Value Brad diam 2.8 cm Diam, S 1.8 cm Area 2.5 cm^2 Inferior vena cava Value Peak ryan, S 113 cm/sec Diam 2.2 cm Legend: (L) and (H) sully values outside specified reference range. [facility] are accredited with the Intersocietal Accreditation Commission - Echocardiography. Prepared and Electronically Authenticated Deyvi Sanchez MD Confirmed 04/05/2025 09:04 Procedure Note Deyvi Sanchez MD - 04/05/2025 [facility] Echocardiography Laboratory [address] [place] [id number] Transthoracic Echocardiography Patient: Sera Little Study ID: [id number] Gender: F : 1990 Age: 34 Room: [facility] HOSPITAL Study 04/05/2025 Pt Inpatient Date: Status: Study 08:05:11 AM [facility] #: [id number] Time: Ordering:Vale Ballard Word Processing Operator: Jillian Chaves [facility] Indications and History: Endocarditis Acute/subacute bacterial. Summary and Conclusion: - Left ventricle: The cavity size is normal. Wall thickness is increasedin a pattern of moderate to severe LVH. There is concentric hypertrophy.Global systolic function is normal. The estimated ejection fraction is 60-65%.For Epic reporting: the left ventricular ejection fraction is 65% Nodiagnostic regional wall motion abnormality identified. Findings consistent withleft ventricular diastolic dysfunction. The global longitudinal strain is-10% (Normal range is -18 to -25). - Right ventricle: The cavity size is normal. Systolic function isnormal. Systolic pressure is within the normal range. - Left atrium: The atrium is mildly dilated. - Aortic valve: Not well visualized. The mean systolic gradient is 10mmHg. - Mitral valve: Not well visualized. A bioprosthesis is present. Thereis moderate to severe regurgitation. Regurgitation might be severe. The regurgitation might be paravalvular. - Tricuspid valve: There is moderate regurgitation. - Pulmonic valve: There is mild regurgitation. Comparison: Compared to the prior study, prosthetic mitral valve asabove. Previou study had shown presence of vegetation. Procedure information: Comparison is made to the study of 02/20/2025.Study status: Routine. Procedure: A transthoracic echocardiogram wasperformed. Image quality was adequate. Scanning was performed from the parasternal, apical, subcostal, and suprasternal notch acoustic windows.Study components: M-mode, 2D, complete spectral Doppler, and color Doppler. Height: 157.5cm. Height: 62in. Weight: 72.5kg. Weight: 159.8lb.BMI: 29.2kg/m^2. BSA: 1.8m^2. Blood pressure: 159/90 Study date: 04/05/2025. Study time: 08:05 AM. Location: ICU/CCU Cardiac Anatomy: LEFT VENTRICLE: The cavity size is normal. Wall thickness is increased emeli pattern of moderate to severe LVH. There is concentric hypertrophy.Global systolic function is normal. The estimated ejection fraction is 60-65%.For Epic reporting: the left ventricular ejection fraction is 65% Nodiagnostic regional wall motion abnormality identified. The longitudinal strain is-10.2% (Normal range is -18 to -25).. The global longitudinal strain is -10%(Normal range is -18 to -25). Findings consistent with left ventriculardiastolic dysfunction. RIGHT VENTRICLE: The cavity size is normal. Systolic function isnormal. Systolic pressure is within the normal range. LEFT ATRIUM: The atrium is mildly dilated. RIGHT ATRIUM: The atrium is normal in size. ATRIAL SEPTUM: No obvious PFO or ASD identified by 2D imaging and color Doppler. AORTIC VALVE: Not well visualized. There is no stenosis. There is no significant regurgitation. MITRAL VALVE: Not well visualized. A bioprosthesis is present. Mobilityis not restricted. No evidence for prolapse. There is no evidence forstenosis. There is moderate to severe regurgitation. Regurgitation might be severe.The regurgitation might be paravalvular. TRICUSPID VALVE: Structurally normal valve. Mobility isunrestricted. There is no evidence for stenosis. There is moderate regurgitation. PULMONIC VALVE: Not well visualized. The valve appears to be grosslynormal. There is no evidence for stenosis. There is mild regurgitation. PERICARDIUM: There is no pericardial effusion. AORTA: Aortic root: The root is not dilated. Aortic arch: The vessel is not dilated. INTRACARDIAC MASS THROMBUS: No apparent intracavitary masses or thrombi detected. Measurements Left ventricle Value LVOT continued Value GLS, 2D -10.2 % Mean ryan, S 64.4cm/sec IVS, ED, LAX 2.2 cm VTI, S 22.0 cm ESD, LAX 2.4 cm Peak grad, S 5 mmHg ESD/bsa, LAX 1.3 cm/m^2 SV 55 ml FS, LAX 40 % SV/bsa 30ml/m^2 FS, LAX chord 40 % ESD major ax, A4C 8.1 cm Right ventricle Value ESD/bsa major ax, A4C 4.5 cm/m^2 SHEKHAR, LAX 3.3 cm SHEKHAR minor ax, A4C 8.1 cm SHEKHAR minor ax, A4C base 3.7 cm SHEKHAR/bsa minor ax, A4C 4.5 cm/m^2 SHEKHAR minor ax, A4C mid 2.8 cm KHADRA, A4C 35.0 cm^2 SHEKHAR 3.3 cm MALGORZATA, A4C 19.5 cm^2 TAPSE, 2D 1.1 cm FAC, A4C 44 % TAPSE, MM 1.1 cm SHEKHAR major ax, A2C 10.5 cm S' lateral 7.0cm/sec SHEKHAR/bsa major ax, A2C 5.8 cm/m^2 KHADRA, A2C 30.9 cm^2 Left atrium Value MALGORZATA, A2C 21.5 cm^2 AP dim, ES 4.0 cm FAC, A2C 30 % AP dim index, ES 2.2cm/m^2 IVS, ED 1.6 cm Area ES, A4C 22cm^2 PW, ED 1.9 cm SI dim, A2C 5.7 cm IVS/PW, ED 0.88 Vol, ES, 1-p A4C 70 ml EDV 70 ml Vol/bsa, ES, 1-p A4C 39ml/m^2 ESV 21 ml Vol, ES, 1-p A2C 95 ml EF 71 % Vol/bsa, ES, 1-p A2C 53ml/m^2 SV 55 ml Vol, ES, 2-p 82 ml EDV/bsa 39 ml/m^2 Vol/bsa, ES, 2-p 46ml/m^2 ESV/bsa 11 ml/m^2 SV/bsa 30 ml/m^2 Right atrium Value EDV, 1-p A2C 88 ml Area, ES, A4C 9cm^2 ESV, 1-p A2C 36 ml EF, 1-p A2C 41 % Aortic valve Value SV, 1-p A2C 50 ml Mean v, S 144cm/sec EDV/bsa, 1-p A2C 49 ml/m^2 VTI, S 37.9 cm ESV/bsa, 1-p A2C 20 ml/m^2 Mean grad, S 10 mmHg SV/bsa, 1-p A2C 27.6 ml/m^2 LVOT/AV, VTI ratio 0.58 EDV, 1-p A4C 99 ml BROOKE, VTI 1.46cm^2 ESV, 1-p A4C 40 ml BROOKE/bsa, VTI 0.81cm^2/m^2 EF, 1-p A4C 60 % LVOT/AV, Vmean ratio 0.45 SV, 1-p A4C 50 ml BROOKE, Vmean 1.1cm^2 EDV/bsa, 1-p A4C 55 ml/m^2 BROOKE/bsa, Vmean 0.62cm^2/m^2 ESV/bsa, 1-p A4C 22 ml/m^2 SV/bsa, 1-p A4C 28 ml/m^2 Mitral valve Value EDV, 2-p 100 ml Peak E 220cm/sec ESV, 2-p 46 ml Peak A 139cm/sec EF, 2-p 54 % Decel time 331 ms SV, 2-p 54 ml Peak grad, D 19 mmHg EDV/bsa, 2-p 55 ml/m^2 Peak E/A ratio 1.6 ESV/bsa, 2-p 25 ml/m^2 Vena contracta width 3.3 cm SV/bsa, 2-p 34.4 ml/m^2 EDV, MM Teich. 70 ml Tricuspid valve Value EF, MM Teich. 71 % TR vena contracta width 1.8 cm EDV/bsa, MM Teich. 39 ml/m^2 Peak RV-RA grad, S 46 mmHg EF, MM on 2D Teich. 71 % Descending aorta Value LVOT Value Brad diam 2.8 cm Diam, S 1.8 cm Area 2.5 cm^2 Inferior vena cava Value Peak ryan, S 113 cm/sec Diam 2.2 cm Legend: (L) and (H) sully values outside specified reference range. [facility] are accredited with theIntersocietal Accreditation Commission - Echocardiography. Prepared and Electronically Authenticated Deyvi Sanchez MD Confirmed 04/05/2025 09:04 us Vale Ballard NP US ORDERABLES Final Result INTERFACE SYSTEM Refer to clinic/hospital department * AMMONIA LEVEL (04/05/2025 7:26 AM CDT) Pathologist [facility] AMMONIA 26.4 11.0 - 51.0 umol/L 04/05/2025 8:03 AM CDT [facility] Blood, venous Venipuncture / Unknown 04/05/2025 7:26 AM CDT 04/05/2025 7:30 AM CDT Vale [facility] Elio SALES CHEMISTRY ORDERABLES Final Result [facility] CLIA # [id number] [address] [address] [place] [address] * PERIPHERAL BLOOD SMEAR PATHOLOGY INTERP (04/05/2025 3:24 AM CDT) PERIPHERAL BLOOD SMEAR INTERP See Interpretation Below 04/08/2025 1:35 PM CDT [facility] INTERPRETED BY: Freddie Qiu MD 04/08/2025 1:35 PM CDT [facility] Blood Venipuncture / Unknown 04/05/2025 3:24 AM CDT 04/05/2025 3:34 AM CDT Narrative [facility] - 04/08/2025 1:35 PM CDT CLINICAL INFORMATION: 34-year-old female with ESRD, abdominal pain, vomiting, and diarrhea, and anemia; evaluate for hemolysis or dyscrasia. WBCs: Leukocytosis with absolute neutrophilia, absolute monocytosis, and marked left shift of granulocytes. Overt dysplastic features or blasts are not identified. RBCs: Marked normocytic normochromic anemia with anisocytosis, prominent polychromasia, and numerous nucleated RBCs. Small numbers of schistocytes are noted (up to 2 per 100X high-power field). PLATELETS: Adequate, with unremarkable morphology. COMMENT: In summary, the smear shows leukocytosis with marked granulocyte left shift, and marked anemia with numerous nucleated RBCs and small numbers of schistocytes. Possible causes of circulating nucleated red blood cells include recent hemorrhage, shock, hemolysis, asplenia or hyposplenism, leukemoid reactions, myelodysplasia, or megaloblastic anemia. Schistocytes can be seen in several conditions including sepsis/DIC, severe hypertension, thrombotic thrombocytopenia purpura (TTP), hemolytic uremic syndrome (HUS), valvular heart disease or prosthetic heart valves (due to mechanical hemolysis), or metastatic carcinoma. The lack of thrombocytopenia or higher numbers of schistocytes in the current smear argues against a severe microangiopathic hemolytic process such as TTP. Correlation with clinical and other laboratory data is required. Reviewed by Tom Qiu MD us Marlen Sauer MD HEMATOLOGY ORDERABLES Final Resu lt Performing Organization Address [facility] Co de Phone Number [facility] CLIA # [id number] [address] [address] [place] [address] * (ABNORMAL) LACTATE DEHYDROGENASE (04/05/2025 3:24 AM CDT) [facility] LD (LACTATE DEHYDROGENASE) >2,500(H) 135 - 214 U/L 04/05/2025 4:37 AM CDT [facility] Comment:Slight hemolysis pre sent. Result may be falsely elevated. Blood Venipuncture / Unknown 04/05/2025 3:24 AM CDT 04/05/2025 3:34 AM CDT us Enio Wadsworth MD CHEMISTRY ORDERABLES Final Resu lt Performing Organization Address [facility] de Phone Number [facility] CLIA # [id number] [address] [place] [address] * (ABNORMAL) TROPONIN 6 HR, 5TH GEN (04/04/2025 10:52 PM CDT) [facility] TROPONIN T, 6 HR 5TH GEN 280(HH) <11 ng/L 04/04/2025 11:34 PM CDT [facility] Comment:Hemolysis can falsel y decrease Troponin quantitation. DELTA 6HR TROPONIN T % -20(LL) See Interp. % 04/04/2025 11:34 PM CDT [facility] Blood Venipuncture / Unknown 04/04/2025 10:52 PM CDT 04/04/2025 10:55 PM CDT Narrative [facility] - 04/04/2025 11:34 PM CDT Troponin elevated. Delta significant change. Vale Ballard WEB PRODUCTION ARTIST CHEMISTRY ORDERABLES Final Result [facility] CLIA # [id number] [address] [place] [address] * LACTIC ACID (04/04/2025 10:42 PM CDT) Only the most recent of3 resultswithin the time period is included. LACTIC ACID 1.6 <=2.0 mmol/L 04/04/2025 11:08 PM CDT [facility] Blood Venipuncture / Unknown 04/04/2025 10:42 PM CDT 04/04/2025 10:46 PM CDT Enio Wadsworth MD CHEMISTRY ORDERABLES Final Resu lt Performing Organization Address [facility]/ZIP Co de Phone Number [facility] CLIA # [id number] [address] [place] [address] * ETHANOL LEVEL (04/04/2025 10:42 PM CDT) ETHANOL <10.10 <10.10 mg/dL 04/04/2025 11:22 PM CDT [facility] ETHANOL % <0.01 <=0.01 %w/v 04/04/2025 11:22 PM CDT [facility] Blood Venipuncture / Unknown 04/04/2025 10:42 PM CDT 04/04/2025 10:48 PM CDT Vale Ballard WEB PRODUCTION ARTIST CHEMISTRY ORDERABLES Final Result Performing Organization Address City/[facility]/ZIP Co de Phone Number [facility] CLIA # [id number] [address] [address] * POC LACTIC ACID (04/04/2025 10:40 PM CDT) [facility] LACTIC ACID POC 1.5 <=2.0 mmol/L 04/04/2025 10:40 PM CDT [facility] SPECIMEN SOURCE, GASES POC Arterial 04/04/2025 10:40 PM CDT [facility] PUNC SITE POC ART PUNCT 04/04/2025 10:40 PM CDT [facility] Blood 04/04/2025 10:4 0 PM CDT 04/04/2025 10:42 PM CDT Narrative [facility] - 04/04/2025 10:40 PM CDT References ranges displayed are for Arterial samples. us Enio Wadsworth MD POINT OF CARE TESTING Final Res ult [facility] CLIA # [id number] [address] [place] [address] * (ABNORMAL) BLOOD GAS ARTERIAL (04/04/2025 10:40 PM CDT) [facility] PH BLOOD POC 7.52(H) 7.35 - 7.45 04/04/2025 10:40 PM CDT [facility] PCO2 POC 37 35 - 45 mm Hg 04/04/2025 10:40 PM CDT [facility] PO2 POC 68(L) 80 - 105 mm Hg 04/04/2025 10:40 PM CDT [facility] HCO3 (CALC) POC 30(H) 22 - 26 mmol/L 04/04/2025 10:40 PM CDT [facility] HEMOGLOBIN POC 8.0(L) 12.0 - 18.0 g/dL 04/04/2025 10:40 PM CDT [facility] BASE EXCESS POC 7(H) -2 - 3 mmol/L 04/04/2025 10:40 PM CDT [facility] O2 SATURATION POC 99(H) 95 - 98 % 04/04/2025 10:40 PM CDT [facility] SODIUM POC 133(L) 138 - 146 mmol/L 04/04/2025 10:40 PM T [facility] POTASSIUM POC 3.1(L) 3.5 - 4.9 mmol/L 04/04/2025 10:40 PM T [facility] HEMATOCRIT POC 24(L) 38 - 51 % 04/04/2025 10:40 PM T [facility] PH TEMP CORRECT 7.52(H) 7.35 - 7.45 04/04/20 10:40 PM CDT [facility] PCO2 TEMP CORRECT 37 35 - 45 mm Hg 04/04/2025 10:40 PM CDT [facility] PO2 TEMP CORRECT 68(L) 80 - 105 mm Hg 04/04/2025 10:40 PM CDT [facility] SPECIMEN SOURCE, GASES POC Arterial 04/04/2025 10:40 PM T [facility] CALCIUM IONIZED POC 4.0(L) 4.8 - 5.2 mg/dL 04/04/2025 10:40 PM T [facility] TCO2 (CALC) POC 31(H) 23 - 27 mmol/L 04/04/2025 10:40 PM T [facility] PUNC SITE POC ART PUNCT 04/04/2025 10:40 PM CDT [facility] PATIENT'S TEMPERATURE POC 37.0 degrees 04/04/2025 10:40 PM T [facility] Blood, arterial 04/04/2025 1 0:40 PM CDT 04/04/2025 10:42 PM CDT us Enio Wadsworth MD ABG ORDERABLES Final Result [facility] CLIA # [id number] [facility] [address] [address] [facility] [place] [address] * US ABDOMEN COMPLETE (04/04/2025 9:03 PM CDT) Anatomical Region Laterality Modality Abdomen Ultrasound 04/04/2025 9:03 PM CDT Impressions 04/04/2025 10:39 PM CDT IMPRESSION: Please see below. Exam: US ABDOMEN COMPLETE Date/Time of Exam: 04/04/2025 9:03 PM Reason For Exam: Elevated LFT's. Diagnosis: See Reason for Exam. Findings:Comparison is made to the CT of earlier the same day and the ultrasound of 01/10/2022. Pancreas: Unremarkable. Liver: Remarkable. The liver is normal in size and smooth in contour. The liver is slightly increased in echo content. No focal liver abnormality is noted. The intrahepatic bile ducts are not dilated. Common bile duct: The common bile duct is normal measuring 4.0 mm. Gallbladder: Surgically Absent. The gallbladder fossa is unremarkable. Right kidney: Remarkable.The right kidney measures 6.3 cm in length. There is mild to moderate cortical thinning. The cortex is increased in echo content. Left kidney: The left kidney could not be visualized. IVC/Aorta: Unremarkable. Spleen: Unremarkable. The spleen measures 10.0 x 3.8 x 7.5 cm with a volume of 151.0 mL. Ascites: None. IMPRESSION: 1. The liver parenchyma is slightly increased in echo content. This is a nonspecific finding usually associated with infiltrative liver disorders such as hepatic steatosis. 2. Mild to moderate thinning of the right renal cortex. 3. The right renal cortex is increased in echo content. This is a nonspecific finding usually associated with chronic medical renal disease. 4. Nonvisualization of the left kidney. 5. Prior cholecystectomy. Narrative Procedure Note Afsaneh Martinez MD - 04/04/2025 IMPRESSION: Please see below. Exam: US ABDOMEN COMPLETE Date/Time of Exam: 04/04/2025 9:03 PM Reason For Exam: Elevated LFT's. Diagnosis: See Reason for Exam. Findings:Comparison is made to the CT of earlier the same day and the ultrasound of 01/10/2022. Pancreas: Unremarkable. Liver: Remarkable. The liver is normal in size and smooth in contour. The liver is slightly increased in echo content. No focal liver abnormality is noted. The intrahepatic bile ducts are not dilated. Common bile duct: The common bile duct is normal measuring 4.0 mm. Gallbladder: Surgically Absent. The gallbladder fossa is unremarkable. Right kidney: Remarkable.The right kidney measures 6.3 cm in length. There is mild to moderate cortical thinning. The cortex is increased in echo content. Left kidney: The left kidney could not be visualized. IVC/Aorta: Unremarkable. Spleen: Unremarkable. The spleen measures 10.0 x 3.8 x 7.5 cm with a volume of 151.0 mL. Ascites: None. IMPRESSION: 1. The liver parenchyma is slightly increased in echo content. This is a nonspecific finding usually associated with infiltrative liver disorders such as hepatic steatosis. 2. Mild to moderate thinning of the right renal cortex. 3. The right renal cortex is increased in echo content. This is a nonspecific finding usually associated with chronic medical renal disease. 4. Nonvisualization of the left kidney. 5. Prior cholecystectomy. us Enio Wadsworth MD US ORDERABLES Final Result * US PELVIS COMPLETE (04/04/2025 8:59 PM CDT) Anatomical Region Laterality Modality Pelvis Ultrasound 04/04/2025 8:59 PM CDT Impressions 04/04/2025 10:33 PM CDT IMPRESSION: Please see below. Exam: US PELVIS COMPLETE Date/Time of Exam: 04/04/2025 8:59 PM Reason For Exam: Ovarian Cyst. Diagnosis: See Reason for Exam. Findings: There are no prior ultrasounds. There is a CT from earlier today. LMP: Unknown. Uterus: Remarkable. The uterus measures 4.2 x 5.1 x 6.7 cm. The uterus is smooth in contour. The myometrium is heterogeneous without focal lesion. There is a trace amount of fluid in the endometrial canal. The endometrium is 5.3 mm in thickness. Free pelvic Fluid: No. Right Ovary: Unremarkable. The ovary measures 3.1 x 2.0 x 2.5 cm with a volume of 8.1 ml. There is a 1.2 x 1.3 x 1.2 cm follicular cyst in the right ovary. Left Ovary: Unremarkable. The left ovary measures 1.8 x 2.2 x 2.6 cm with a volume of 5.4 ml. The left ovary is nearly entirely composed of a follicular cyst. IMPRESSION: 1. Trace amount of fluid in the endometrial canal. 2. Nonspecific heterogeneity of the myometrium without focal lesion. 3. 1.3 cm follicular cyst in the right ovary. 4. Physiologic poorly defined follicular cyst in the left ovary. 5. No concerning abnormality noted. Narrative Procedure Note Afsaneh Martinez MD - 04/04/2025 IMPRESSION: Please see below. Exam: US PELVIS COMPLETE Date/Time of Exam: 04/04/2025 8:59 PM Reason For Exam: Ovarian Cyst. Diagnosis: See Reason for Exam. Findings: There are no prior ultrasounds. There is a CT from earlier today. LMP: Unknown. Uterus: Remarkable. The uterus measures 4.2 x 5.1 x 6.7 cm. The uterus is smooth in contour. The myometrium is heterogeneous without focal lesion. There is a trace amount of fluid in the endometrial canal. The endometrium is 5.3 mm in thickness. Free pelvic Fluid: No. Right Ovary: Unremarkable. The ovary measures 3.1 x 2.0 x 2.5 cm with a volume of 8.1 ml. There is a 1.2 x 1.3 x 1.2 cm follicular cyst in the right ovary. Left Ovary: Unremarkable. The left ovary measures 1.8 x 2.2 x 2.6 cm with a volume of 5.4 ml. The left ovary is nearly entirely composed of a follicular cyst. IMPRESSION: 1. Trace amount of fluid in the endometrial canal. 2. Nonspecific heterogeneity of the myometrium without focal lesion. 3. 1.3 cm follicular cyst in the right ovary. 4. Physiologic poorly defined follicular cyst in the left ovary. 5. No concerning abnormality noted. us Enio Wadsworth MD US ORDERABLES Final Result * (ABNORMAL) TROPONIN 2 HR, 5TH GEN (04/04/2025 8:44 PM CDT) TROPONIN T, 2 HR 5TH GEN 297(HH) <=10 ng/L 04/04/2025 9:44 PM CDT [facility] Comment:Hemolysis can falsel y decrease Troponin quantitation. DELTA 2HR TROPONIN T % -16 See Interp. % 04/04/2025 9:44 PM CDT [facility] Blood Venipuncture / Unknown 04/04/2025 8:44 PM CDT 04/04/2025 8:55 PM CDT Narrative [facility] - 04/04/2025 9:44 PM CDT Troponin elevated. Delay in collection of timed specimen beyond recommended collection interval. Results must be interpreted in clinical context. Delta not changing. Vale Ballard NP CHEMISTRY ORDERABLES Final Result [facility] CLIA # [id number] [address] [place] [address] * (ABNORMAL) ACUTE HEPATITIS PANEL (04/04/2025 8:44 PM CDT) HEPATITIS B SURFACE AG NON-REACT GARY Non-react gary 04/04/2025 10:07 PM CDT [facility] Comment:A non-reactive test result does not exclude the possibility of exposure to or infection with hepatitis B. HEPATITIS B CORE IGM NON-REACT GARY Non-react gary 04/04/2025 10:07 PM CDT [facility] Comment:IgM antibodies to HB c were not detected; does not exclude the possibility of exposure to HBV. HEPATITIS A IGM Non-react gary Non-react gary 04/04/2025 10:07 PM CDT [facility] Comment:A negative test resu lt does not exclude the possibility of exposure to Hepatitis A virus. HEPATITIS C AB REACTIVE( A) Non-react gary 04/04/2025 10:07 PM CDT [facility] Blood Venipuncture / Unknown 04/04/2025 8:44 PM CDT 04/04/2025 9:14 PM CDT Narrative [facility] - 04/04/2025 10:07 PM CDT Confirmatory testing by HCV_RNA by PCR will be automatically reflexed on reactive results. us Leroy Talley MD CHEMISTRY ORDERABLES Fin al Result Performing Organization Address [facility] Co de Phone Number [facility] # [id number] [address] [place] [address] * HEPATITIS C RNA PCR, QUANTITATIVE (04/04/2025 8:44 PM CDT) [facility] HCV RNA, QUANT REAL TIME PCR <15 NOT DETECTED NOT DETECTED IU/mL 04/08/2025 3:53 PM CDT [facility] HCV RNA QUANT PCR COPIES IU/ML <1.18 NOT DETECTED NOT DETECTED Log IU/mL 04/08/2025 3:53 PM CDT [facility] Comment: For additional information, please refer to http://education.[employer]/faq/NGA93p0 (This link is being provided for informational/ educational purposes only.) Blood Venipuncture / Unknown 04/04/2025 8:44 PM CDT 04/04/2025 10:07 PM CDT Narrative [facility] - 04/08/2025 3:53 PM CDT Performing Organization Information: Site ID: CT Name: [id number] Address: [address] [place] [address] Director: Nikolai Blank MD us Leroy Talley MD CHEMISTRY ORDERABLES Fin al Result Performing Organization Address [facility]/ZIP Co de Phone Number [facility] * XR CHEST PA OR AP 1 VW (04/04/2025 6:28 PM CDT) Anatomical Region Laterality Modality Chest Computed Radiogr aphy 04/04/2025 6:29 PM CDT Impressions 04/04/2025 8:09 PM CDT IMPRESSION: Please see below. Exam: XR CHEST PA OR AP 1 VW Date/Time of Exam: 04/04/2025 6:28 PM Reason For Exam: Altered Mental Status. Diagnosis: See Reason for Exam. Findings: The AP upright study is compared to the exam of 12/28/2024. The right IJ tunneled dialysis catheter tip overlies the right atrium. Postsurgical changes of sternotomy are now present. Lung volumes are adequate. There is no pneumothorax. There is patchy mild hazy opacity throughout the right lung. The left lung is clear. The cardiac silhouette is large. The pulmonary vessels are unremarkable. The bony thorax is grossly intact. IMPRESSION: There is patchy mild hazy opacity in the right lung suspicious for multifocal pneumonia. Narrative Procedure Note Afsaneh Martinez MD - 04/04/2025 IMPRESSION: Please see below. Exam: XR CHEST PA OR AP 1 VW Date/Time of Exam: 04/04/2025 6:28 PM Reason For Exam: Altered Mental Status. Diagnosis: See Reason for Exam. Findings: The AP upright study is compared to the exam of 12/28/2024. The right IJ tunneled dialysis catheter tip overlies the right atrium. Postsurgical changes of sternotomy are now present. Lung volumes are adequate. There is no pneumothorax. There is patchy mild hazy opacity throughout the right lung. The left lung is clear. The cardiac silhouette is large. The pulmonary vessels are unremarkable. The bony thorax is grossly intact. IMPRESSION: There is patchy mild hazy opacity in the right lung suspicious for multifocal pneumonia. Enio Wadsworth MD DIAGNOSTIC IMAGING ORDERABLES F inal Result * (ABNORMAL) TROPONIN BASELINE, 5TH GEN (04/04/2025 5:27 PM CDT) TROPONIN T, BASELINE 5TH GEN 352(HH) <=10 ng/L 04/04/2025 6:27 PM CDT [facility] Comment:Hemolysis can falsel y decrease Troponin quantitation. Blood Venipuncture / Unknown 04/04/2025 5:27 PM CDT 04/04/2025 5:41 PM CDT Narrative [facility] - 04/04/2025 6:27 PM CDT Troponin elevated. Vale Ballard NP CHEMISTRY ORDERABLES Final Result [facility] CLIA # [id number] [facility] [address] [address] * (ABNORMAL) PROCALCITONIN (04/04/2025 5:27 PM CDT) PROCALCITONIN 6.61(H) <=0.08 ng/mL 04/04/2025 6:39 PM CDT [facility] Blood Venipuncture / Unknown 04/04/2025 5:27 PM CDT 04/04/2025 5:42 PM CDT Narrative [facility] - 04/04/2025 6:39 PM CDT The utility of procalcitonin is limited/NOT recommended in certain populations (e.g. newborns, dialysis/ESRD, patients with recent major surgery/trauma/wright, liver cirrhosis, viral hepatitis, certain cancers, etc.). Procalcitonin levels MUST be interpreted in the context of the patient's clinical condition and CANNOT be solely relied upon for diagnosis of infection. <0.25 ng/mL: Bacterial infection unlikely, particularly lower respiratory tract infections. <0.5 ng/mL: Low risk for progression to severe sepsis/septic shock. Localized infection possible. Measurements done early (<6 hours) after systemic process starts may still be low. 0.5-2 ng/mL: Moderate risk for progression to severe sepsis/septic shock. >2 ng/mL: High risk for progression to severe sepsis/septic shock. If antibiotics ARE administered, repeat testing is recommended every 2-3 days to help guide antibiotic cessation. Once a decrease of 80% or more has occurred from baseline, discontinuation of antibiotics should strongly be considered in clinically stable patients. Procalcitonin is produced in the setting of systemic inflammation, particularly bacterial infections. It is detectable within 2-4 hours and peaks within 6-24 hours. Vale Ballard NP CHEMISTRY ORDERABLES Final Result Performing Organization Address [facility] Co de Phone Number [facility] CLIA # [id number] [address] [address] * (ABNORMAL) RETICULOCYTES (04/04/2025 5:27 PM CDT) [facility] RETICULOCYTES 6.0(H) 0.9 - 2.2 % 04/04/2025 5:52 PM CDT [facility] IMMATURE RETIC FRACTION 62.9(H) 3.3 - 13.6 % 04/04/2025 5:52 PM CDT [facility] RETICULOCYTE, ABSOLUTE 0.1100(H) 0.0160 - 0.0700 10e6/uL 04/04/2025 5:52 PM CDT [facility] RETICULOCYTE HEMOGLOBIN CONTENT 33.7 27.8 - 37.7 pg 04/04/2025 5:52 PM CDT [facility] Blood Venipuncture / Unknown 04/04/2025 5:27 PM CDT 04/04/2025 5:40 PM CDT us Enio Wadsworth MD HEMATOLOGY ORDERABLES Final Res ult [facility] CLIA # [id number] [address] [place] [address] * HCG QUANTITATIVE, BLOOD (04/04/2025 5:27 PM CDT) [facility] HCG QUANT, BLOOD 0.6 0.0 - 1.0 mIU/mL 04/04/2025 6:39 PM CDT [facility] Comment: HCG Quantitative Reference Range Male <= 2 mIU/mL Female Non premenopausal <= 1 mIU/mL Non postmenopausal <= 7 mIU/mL Gestational Age HCG Concentration 3 Weeks 5.8 - 71.2 mIU/mL 4 Weeks 9.5 - 750 mIU/mL 5 Weeks 217 - 7138 mIU/mL 6 Weeks 158 - 31,795 mIU/mL 7 Weeks 3697 - 163,563 mIU/mL 8 Weeks 32,065 - 149,571 mIU/mL 9 Weeks 63,803 - 151,410 mIU/mL 10 Weeks 46,509 - 186,977 mIU/mL 12 Weeks 27,832 - 210,612 mIU/mL 14 Weeks 13,950 - 62,530 mIU/mL 15 Weeks 12,039 - 70,971 mIU/mL 16 Weeks 9040 - 56,451 mIU/mL 17 Weeks 8175 - 55,868 mIU/mL 18 Weeks 8099 - 58,176 mIU/mL Blood Venipuncture / Unknown 04/04/2025 5:27 PM CDT 04/04/2025 5:42 PM CDT Vale Ballard WEB [employer]ODUCTION ARTIST CHEMISTRY ORDERABLES Final Result Performing Organization Address [facility] de Phone Number [facility] CLIA # [id number] [address] [address] * (ABNORMAL) PHOSPHORUS (04/04/2025 5:27 PM CDT) PHOSPHORUS 9.2(H) 2.5 - 4.5 mg/dL 04/04/2025 6:41 PM CDT [facility] Blood Venipuncture / Unknown 04/04/2025 5:27 PM CDT 04/04/2025 5:42 PM CDT us Enio Wadsworth MD CHEMISTRY ORDERABLES Final Resu lt Performing Organization Address [facility] Co de Phone Number [facility] CLIA # [id number] [address] [id number] * (ABNORMAL) MAGNESIUM LEVEL (04/04/2025 5:27 PM CDT) Only the most recent of2 resultswithin the time period is included. MAGNESIUM 2.8(H) 1.6 - 2.6 mg/dL 04/04/2025 6:41 PM CDT [facility] Blood Venipuncture / Unknown 04/04/2025 5:27 PM CDT 04/04/2025 5:42 PM CDT Enio Wadsworth MD CHEMISTRY ORDERABLES Final Resu lt Performing Organization Address City/[facility]/ZIP Co de Phone Number [id number] [address] [place] [address] * (ABNORMAL) MRSA PCR RAPID SCREEN (04/04/2025 4:24 PM CDT) [facility] MRSA PCR RESULT MRSA detected( A) MRSA not detected 04/04/2025 5:47 PM CDT [facility] Surveillance ANTERIOR NARES SWAB / Unknown Collection / Unknown 04/04/2025 4:24 PM CDT 04/04/2025 4:27 PM CDT Narrative [facility] - 04/04/2025 5:47 PM CDT Positive MRSA called to POONAM Stroud on 6A by Darya Diez on 04/04/2025 at 5:47 PM with verbal readback. This assay is used to detect Methicillin-Resistant S. aureus (MRSA) colonization of the nares. PLEASE NOTE: This test has not been approved to monitor effectiveness of MRSA decolonization. Residual DNA may temporarily be present after successful decolonization. This test was performed using an FDA approved screening methodology. Enio Wadsworth MD MICROBIOLOGY - GENERAL ORDERABL ES Final Result Performing Organization Address [facility]/ZIP Co de Phone Number [facility] [id number] [address] [place] [address] * RESPIRATORY PATHOGEN PCR PANEL (04/04/2025 4:24 PM CDT) Respiratory Pathogen PCR Panel NOT DETECTED No respiratory pathogen nucleic acids detected. 04/04/2025 5:25 PM CDT [facility] COVID-19 PCR NOT DETECTED Not Detected 04/04/2025 5:25 PM CDT [facility] Upper Respiratory ENTIRE NASOPHARYNX / Unknown Collection / Unknown 04/04/2025 4:24 PM CDT 04/04/2025 4:27 PM CDT Narrative [facility] - 04/04/2025 5:25 PM CDT The Film Array Respiratory Panel (RP2.1) is a multiplex nucleic acid detection test for 22 targets. Viruses: Adenovirus Coronavirus HKU1, NL63, 229E, and OC43 COVID-19/Severe Acute Respiratory Syndrome Coronavirus 2 Influenza A with the following subtypes: H1, H1-2009, and H3 Influenza B Human Metapneumovirus Parainfluenza virus 1, 2, 3, and 4 Respiratory Syncytial virus (RSV) Rhinovirus/Enterovirus (cannot differentiate due to genetic similarities) Bacteria: Bordetella pertussis Bordetella parapertussis Chlamydophila pneumoniae Mycoplasma pneumoniae Enio Wadsworth MD MICROBIOLOGY - GENERAL ORDERABL ES Final Result Performing Organization Address City/[facility]/ZIP Co de Phone Number [facility] [id number] [address] [place] [address] * BLOOD CULTURE (04/04/2025 1:30 PM CDT) Only the most recent of2 resultswithin the time period is included. BLOOD CULTURE No growth 04/09/2025 7:45 PM CDT [facility] Blood (Peripheral) Venipuncture / Unknown 04/04/2025 1:30 PM CDT 04/04/2025 1:50 PM CDT Lupe Reardon MD MICROBIOLOGY - GENERAL ORDERABL ES Final Result Performing Organization Address City/[facility]/ZIP Co de Phone Number [facility] # [id number] [address] [place] [address] * CT ABDOMEN PELVIS WO CONTRAST (04/04/2025 12:59 PM CDT) Anatomical Region Laterality Modality Abdomen Computed Tomogra phy 04/04/2025 12:3 9 PM CDT Impressions 04/04/2025 1:45 PM CDT IMPRESSION: 1. Small 1.8 cm left ovarian cyst. 2. Small amount of free fluid in the cul-de-sac. 3. Shrunken and atrophic kidneys. Narrative 04/04/2025 1:45 PM CDT Exam: CT ABDOMEN PELVIS WO CONTRAST Date/Time of Exam: 04/04/2025 12:59 PM Reason For Exam: Abdominal pain, acute, nonlocalized. Contiguous axial images were obtained through the abdomen and pelvis. Sagittal and coronal reformatted images are included. The study was performed without IV contrast. The appendix is visualized and is unremarkable in appearance. A small amount of free fluid is seen in the cul-de-sac. A 1.8 cm left ovarian cyst is present. There is no evidence of any ureteral stones or any dilatation of the ureters or collecting systems. The kidneys appear shrunken and atrophic. There is no evidence of any abdominal aortic aneurysm. The liver, spleen, pancreas, and adrenals are unremarkable. There is no evidence of abnormal soft tissue masses, abnormal fluid collections or adenopathy in the abdomen or pelvis. Bowel loops are nondilated. There is no evidence of any free intraperitoneal air. Procedure Note Emiliano Gomez MD - 04/04/2025 Exam: CT ABDOMEN PELVIS WO CONTRAST Date/Time of Exam: 04/04/2025 12:59 PM Reason For Exam: Abdominal pain, acute, nonlocalized. Contiguous axial images were obtained through the abdomen and pelvis. Sagittal and coronal reformatted images are included. The study was performed without IV contrast. The appendix is visualized and is unremarkable in appearance. A small amount of free fluid is seen in the cul-de-sac. A 1.8 cm left ovarian cyst is present. There is no evidence of any ureteral stones or any dilatation of the ureters or collecting systems. The kidneys appear shrunken and atrophic. There is no evidence of any abdominal aortic aneurysm. The liver, spleen, pancreas, and adrenals are unremarkable. There is no evidence of abnormal soft tissue masses, abnormal fluid collections or adenopathy in the abdomen or pelvis. Bowel loops are nondilated. There is no evidence of any free intraperitoneal air. IMPRESSION: 1. Small 1.8 cm left ovarian cyst. 2. Small amount of free fluid in the cul-de-sac. 3. Shrunken and atrophic kidneys. us Lupe Reardon MD CT ORDERABLES Final Result * VERIFICATION BLOOD GROUP (04/04/2025 11:28 AM CDT) ABO/RH TYPE O NEG 04/04/2025 2:38 PM CDT [facility] Blood BLOOD SPECIMEN / Unknown Venipuncture / Unknown 04/04/2025 11:28 AM CDT 04/04/2025 2:38 PM CDT us Lupe Reardon MD BLOOD BANK ORDERABLES Final Res ult [facility] CLIA # [id number] [address] [place] [address] * (ABNORMAL) SEDIMENTATION RATE (04/04/2025 11:28 AM CDT) ESR (SEDIMENTATION RATE) 83(H) 0 - 20 mm/Hr 04/04/2025 12:22 PM CDT [facility] Blood Venipuncture / Unknown 04/04/2025 11:28 AM CDT 04/04/2025 12:02 PM CDT Narrative [facility] - 04/04/2025 12:22 PM CDT Tube Lot: [id number] Exp Date: 07/16/2026 SR 0125-1 EXP. 04/20/25 SR 0125-2 EXP. 04/20/25 us Lupe Reardon MD HEMATOLOGY ORDERABLES Final Res ult [facility] # [id number] [address] [place] [address] * (ABNORMAL) C-REACTIVE PROTEIN (04/04/2025 11:28 AM CDT) CRP 165.0(H) <5.0 mg/L 04/04/2025 12:20 PM CDT [facility] Blood Venipuncture / Unknown 04/04/2025 11:28 AM CDT 04/04/2025 12:02 PM CDT us Lupe Reardon MD CHEMISTRY ORDERABLES Final Resu lt Performing Organization Address [facility] Phone Number [facility] # [id number] [address] [place] [address] * (ABNORMAL) BRAIN NATRIURETIC PEPTIDE, BNP OR PROBNP (04/04/2025 11:28 AM CDT) PROBNP, N TERMINAL >70,000(H ) 0 - 125 pg/mL 04/04/2025 12:35 PM CDT [facility] Comment: INTERPRETIVE COMMENT based on diagnosis: Diagnostic NT pro-BNP cutoffs for Heart Failure in the absence of renal failure is suggested for the following ranges <75 years: <125 pg/mL >=75 years: <450 pg/mL Exclusionary rule out cut-point for Acute Decompensated Heart Failure(ADHF) All ages: <300 pg/mL Diagnostic NT pro-BNP cutoffs for Acute Decompensated Heart Failure(ADHF) in the absence of renal failure is suggested for the following ages <50 years: > 450 pg/mL 50-75 years: > 900 pg/mL >75 years: >1800 pg/mL Blood Venipuncture / Unknown 04/04/2025 11:28 AM CDT 04/04/2025 12:02 PM CDT us Lupe Reardon MD CHEMISTRY ORDERABLES Final Resu lt Performing Organization Address [facility]/ZIP Co de Phone Number [facility] CLIA # [id number] [address] [place] [address] from Last 3 Months Insurance MEDICAID [facility] DUAL COMPLETE HMO [facility] [id number] Advance Directives For more information, please contact: [phone] * Full Code (Latest Code Status on File) Date Activated Date Inactivated Comments 04/04/2025 4:53 PM 04/11/2025 9:44 PM * Full Code Date Activated Date Inactivated Comments 01/01/2025 4:12 PM 01/04/2025 11:03 AM * Default Full Code - Needs Discussion Date Activated Date Inactivated Comments 12/28/2024 7:36 PM 01/01/2025 4:12 PM * Full Code Date Activated Date Inactivated Comments 05/26/2024 3:19 PM 06/04/2024 3:18 PM * Full Code Date Activated Date Inactivated Comments 10/22/2022 2:25 PM 10/22/2022 4:47 PM Care Teams Blind Eyeletter Relationship Specialty Start Date End Date Laurent Wolfe MD [address] [place] [id number] PCP - General Family Practice 01/10/22
[2025-05-17 15:47] VITALS: BP 163/105; PULSE 88; RESP 16; TEMP 36.7; O2SAT 100; BMI 28.3
--- NOTE | 2025-05-17 16:10 | W.ED.RECABL ---
HPI - Recheck/Abnormal Lab/Rx General: Chief Complaint: Recheck/Abnormal Lab/Rx Stated Complaint: abn labs (5wks postop/[facility] sent) Time Seen by Provider: 05/17/25 16:06 History of Present Illness: 34-year-old female who presents to the emergency room with complaints of needing blood transfusion. Patient is on hemodialysis and was at dialysis today hemoglobin was very low. Was directed here for transfusion. No chest pain no shortness of breath no obvious signs of blood loss she does not have she denies any medic easier not hematemesis or coffee-ground emesis. Related Data Home Medications ?Medication ?Instructions ?Recorded ?Confirmed dicyclomine 10 mg capsule 10 mg PO TID PRN Cramps 05/08/21 05/05/24 docusate sodium 100 mg capsule 100 mg PO BID 11/10/21 05/05/24 acetaminophen 500 mg tablet 500 - 1,000 mg PO Q6H PRN Pain 02/19/22 05/07/24 aspirin 325 mg tablet 325 mg PO . DIRECTED 02/19/22 05/07/24 melatonin 10 mg tablet 10 mg PO BEDTIME PRN Sleep 02/19/22 05/07/24 amlodipine 10 mg tablet 10 mg PO DAILY 05/05/24 05/05/24 bumetanide 1 mg tablet 1 mg PO DIRECTED 05/05/24 05/05/24 cholecalciferol (vitamin D3) 50 50 mcg PO DAILY 05/05/24 05/05/24 mcg (2,000 unit) capsule losartan 50 mg tablet 50 mg PO BEDTIME 05/05/24 05/05/24 metolazone 5 mg tablet 5 mg PO EVERY OTHER DAY 05/05/24 05/05/24 minoxidil 10 mg tablet 10 mg PO BID 05/05/24 05/05/24 Previous Rx's ?Medication ?Instructions ?Recorded clonidine 0.3 mg/24 hr weekly 1 patch transdermal Q7D #4 ea 05/09/24 transdermal patch hydralazine 50 mg tablet 50 mg PO TID #90 tabs 05/09/24 isosorbide mononitrate 60 mg 60 mg PO DAILY #30 tabs 05/09/24 tablet,extended release 24 hr labetalol 200 mg tablet 300 mg (1.5 x 200 mg) PO BID #90 05/09/24 tabs Allergies Allergy/AdvReac Type Severity Reaction Status Date / Time No Known Allergies Allergy Verified 05/17/25 15:49 Review of Systems Const: Denies: fever(s) or chills Card: Denies: chest pain Resp: Denies: dyspnea GI: Denies: abdominal pain : Denies: dysuria, urinary frequency or urinary urgency Musc: Denies: neck pain or back pain Skin/Breast: Denies: rash PFSH ED PFSH: Medical History Hepatitis C Methamphetamine abuse Posterior reversible encephalopathy syndrome White matter disease HCV (hepatitis C virus) on Acute kidney failure Ischemic bowel disease CHF (congestive heart failure), NYHA class III Resistant hypertension Pericardial effusion CKD (chronic kidney disease) Cardiomyopathy EF- 48% with mod LVH, grade 1 diastolic dysfunction Hypertension LVH (left ventricular hypertrophy) Methamphetamine abuse Substance abuse Surgical History Status post biopsy of kidney Status post insertion of hemodialysis catheter S/P cholecystectomy Family History Other CAD (coronary artery disease) Hypertension Social History Smoking and tobacco/nicotine status: current every day tobacco/nicotine user cigarettes Packs smoked per day: 0.5 Alcohol intake: never Substance/Drug Use: former Date of last use: Quit using last year Household members: family and other Details: Lives with mother Housing: House Marital status: Single Current occupational status: unemployed Current gender identity: Female Female Reproductive History: Date of last menstrual period: 04/06/25 Physical Exam Const: COMMON NORMALS: no acute distress GENERAL APPEARANCE: cooperative and comfortable ORIENTATION/CONSCIOUSNESS: Yes awake, Yes oriented to person, Yes oriented to place and Yes oriented to time HENMT: COMMON NORMALS: normocephalic, atraumatic and hearing grossly normal bilaterally HEAD & SCALP: normocephalic and atraumatic Resp: COMMON NORMALS: normal respiratory effort, No retractions, No use of accessory muscles and clear to auscultation bilaterally AUSCULTATION: clear to auscultation bilaterally Cardio: COMMON NORMALS: regular rate, regular rhythm and No murmurs present (Cardio) RATE: regular rate RHYTHM: regular rhythm GI: COMMON NORMALS: Soft to palpation and No hepatosplenomegaly present AUSCULTATION: Yes normoactive bowel sounds PALPATION: Yes Soft to palpation, No Tenderness to palpation present (GI), No Guarding due to palpation present (GI) and Yes No hepatosplenomegaly present Extremity: COMMON NORMALS: normal to inspection, capillary refill normal, no clubbing, cyanosis or edema, no calf tenderness and no pedal edema Neuro: SENSORIUM/ORIENTATION: Yes oriented to person, Yes oriented to place and Yes oriented to time Skin: COMMON NORMALS: no rashes or lesions noted GENERAL SKIN EXAM: no rashes or lesions noted Course Vital Signs: Vital signs: Vital Signs Temperature 98.1 F 05/17/25 15:47 Pulse Rate 79 05/17/25 17:33 Respiratory Rate 14 05/17/25 17:33 Blood Pressure 151/97 05/17/25 17:33 Pulse Oximetry 97 05/17/25 17:33 Oxygen Delivery Me thod Room Air 05/17/25 16:50 MDM - Recheck/Abnormal Lab/Rx Medical Decision Making Hemoglobin 7 5 is chronic her MCV is 102 vital signs are all stable she is not tachycardic or hypotensive. Not need emergent blood at this time we will schedule her for an outpatient transfusion in the transfusion center and [facility] for in the morning. supervisor treating and pumping is setting up for her to come and have a type and screen done that morning and then be transfused later in the day. We verified that she gets her dialysis on Tuesdays and Saturdays so Tuesday should not conflict with her dialysis schedule. Medical Records I reviewed the patient's medical records. Lab Data I reviewed the patient's lab results. 05/17/25 16:12 05/17/25 16:12 Laboratory Results WBC 8.98 10^3/uL (3.29-11.43) 05/17/25 16:12 RBC 2.47 10^6/uL (3.85-5.65) L 05/17/25 16:12 Hgb 7.50 g/dL (11.27-16.99) L 05/17/25 16:12 Hct 25.2 % (36-47) L 05/17/25 16:12 MCV 102.0 fl (85-98) H 05/17/25 16:12 MCH 30.4 pg (27-33) 05/17/25 16:12 MCHC 29.8 g/dL (30-55) L 05/17/25 16:12 RDW 16.1 % (12.1-15.1) H 05/17/25 16:12 Plt Count 154 10^3/cmm (157-399) L 05/17/25 16:12 MPV 10.7 fL (7.4-10.4) H 05/17/25 16:12 Neut % (Auto) 65.1 % 05/17/25 16:12 Lymph % (Auto) 17.8 % 05/17/25 16:12 [place] % (Auto) 9.1 % 05/17/25 16:12 Eos % (Auto) 6.9 % 05/17/25 16:12 Baso % (Auto) 0.7 % 05/17/25 16:12 Neut # (Auto) 5.84 10^3/uL (1.8-7.7) 05/17/25 16:12 Lymph # (Auto) 1.6 10^3/uL (0.8-4.8) 05/17/25 16:12 [place] # (Auto) 0.8 10^3/uL (0.2-0.9) 05/17/25 16:12 Eos # (Auto) 0.6 10^3/uL (0.0-0.8) 05/17/25 16:12 Baso # (Auto) 0.1 10^3/uL (0.0-0.1) 05/17/25 16:12 Nucleated RBC % (auto) 0 % 05/17/25 16:12 Nucleated RBCs # 0.0 /100WBC 05/17/25 16:12 Sodium 137 mmol/L (136-145) 05/17/25 16:12 Potassium 4.1 mmol/L (3.5-5.1) 05/17/25 16:12 Chloride 94 mmol/L (98-107) L 05/17/25 16:12 Carbon Dioxide 28 mmol/L (22-29) 05/17/25 16:12 Anion Gap 19.1 (5-19) H 05/17/25 16:12 BUN 22 mg/dL (6-20) H 05/17/25 16:12 Creatinine 4.7 mg/dL (0.5-0.9) H 05/17/25 16:12 GFR Calculation 10.6 mL/min (90-130) L 05/17/25 16:12 Glucose 130 mg/dL (65-115) H 05/17/25 16:12 Calculated Osmolality 289 mOsm/kg (285-295) 05/17/25 16:12 Calcium 8.9 mg/dL (8.5-10.5) 05/17/25 16:12 Total Bilirubin 0.2 mg/dL (0.15-1.2) 05/17/25 16:12 AST 16 U/L (0-32) 05/17/25 16:12 ALT 8 U/L (0-33) 05/17/25 16:12 Alkaline Phosphatase 123 U/L (35-105) H 05/17/25 16:12 Total Protein 6.8 g/dL (6.6-8.7) 05/17/25 16:12 Albumin 3.3 g/dL (3.5-5.2) L 05/17/25 16:12 Globulin 3.5 g/dL (1.3-4.6) 05/17/25 16:12 HCG, Qual Negative (Negative) 05/17/25 16:12 Blood Type O Negative 05/17/25 16:12 Rho(D) Type Rh negative 05/17/25 16:12 Antibody Screen Negative 05/17/25 16:12 No radiology studies performed this visit Discharge Plan Discharge Patient Disposition: Home Clinical Impression: Anemia, chronic renal failure, End-stage renal disease on hemodialysis Condition: Stable Prescriptions: No Action docusate sodium 100 mg capsule 100 mg PO BID dicyclomine 10 mg capsule 10 mg PO TID PRN (Reason: Cramps) aspirin 325 mg Tablet 325 mg PO . DIRECTED acetaminophen 500 mg Tablet 500 - 1,000 mg PO Q6H PRN (Reason: Pain) melatonin 10 mg Tablet 10 mg PO BEDTIME PRN (Reason: Sleep) amlodipine 10 mg tablet 10 mg PO DAILY bumetanide 1 mg tablet 1 mg PO DIRECTED cholecalciferol (vitamin D3) 50 mcg (2,000 unit) capsule 50 mcg PO DAILY losartan 50 mg tablet 50 mg PO BEDTIME minoxidil 10 mg tablet 10 mg PO BID metolazone 5 mg tablet 5 mg PO EVERY OTHER DAY labetalol 200 mg Tablet 300 mg PO BID Qty: 90 0RF hydralazine 50 mg Tablet 50 mg PO TID Qty: 90 0RF clonidine 0.3 mg/24 hr Patch Weekly 1 patch transdermal Q7D Qty: 4 0RF isosorbide mononitrate 60 mg tablet extended release 24 hr 60 mg PO DAILY Qty: 30 0RF Discharge Orders: Discharge ED (Routine); Ordered 05/17/25 Ordered By: New Cassidy Referrals: Laurent Wolfe MD [Primary Care Provider, Family Practice] Discharge Diet: Usual diet Discharge Activity: Resume usual activity Patient Instructions: Opioid Safety, Pain Management, Patient Portal & Kunal Instructions Activity Restrictions/Additional Instructions: Thank you for choosing [facility] for your healthcare needs today. It is very important that you follow up as instructed or that you return to the Emergency Department should you have concerns or if your condition changes or worsens in any way. You were seen in the emergency room with concerns of anemia. Your anemia appears chronic. Your hemoglobin today was 7.5. Your vital signs are stable. Will set you up for an outpatient transfusion on May 20. Print Language: Armenian Coding Level of Care Code ED Sheep Boner for Guillermo Puente
[2025-05-17 16:28] LABS: Hematocrit 25.2 % (36-47); Hemoglobin 7.50 g/dL (11.27-16.99); Mean Corpuscular HGB Conc 29.8 g/dL (30-55); Mean Corpuscular Hemoglobin 30.4 pg (27-33); Mean Corpuscular Volume 102.0 fl (85-98); Nucleated Red Blood Cells % 0 %; Platelet Count 154 10^3/cmm (157-399); Red Blood Count 2.47 10^6/uL (3.85-5.65); White Blood Count 8.98 10^3/uL (3.29-11.43)
[2025-05-17 16:40] LABS: HCG, Serum Qual Negative (Negative)
[2025-05-17 16:49] LABS: Alanine Aminotransferase 8 U/L (0-33); Albumin Level 3.3 g/dL (3.5-5.2); Alkaline Phosphatase 123 U/L (35-105); Anion Gap 19.1 (5-19); Aspartate Amino Transferase 16 U/L (0-32); Blood Urea Nitrogen 22 mg/dL (6-20); Calcium 8.9 mg/dL (8.5-10.5); Carbon Dioxide 28 mmol/L (22-29); Chloride 94 mmol/L (98-107); Creatinine Clr Calc Pharmacy 15.4913; Globulin 3.5 g/dL (1.3-4.6); Glucose 130 mg/dL (65-115); Osmolality Calculated 289 mOsm/kg (285-295); Potassium 4.1 mmol/L (3.5-5.1); Sodium 137 mmol/L (136-145); Total Protein 6.8 g/dL (6.6-8.7)
[2025-05-17 16:50] VITALS: BP 160/113; PULSE 84; RESP 13; O2SAT 97
[2025-05-17 17:33] VITALS: BP 151/97; PULSE 79; RESP 14; O2SAT 97
== END 2025-05-17 17:38 | disposition home or self-care (01) ==
PROVIDERS: Physician Assistant; Emergency Provider Family Medicine; PCP Family Medicine
DX: D64.9 Anemia, unspecified (principal); I13.2 Hypertensive heart and chronic kidney disease with heart failure and with stage 5 chronic kidney disease, or end stage renal disease; N18.6 End stage renal disease; I50.9 Heart failure, unspecified; F17.210 Nicotine dependence, cigarettes, uncomplicated; Z99.2 Dependence on renal dialysis; Z79.82 Long term (current) use of aspirin
CPT/HCPCS: 36415; 80053; 84703; 85025; 86850; 86900; 86920; 99283

== ENCOUNTER 2025-05-23 10:27 | Oncology outpatient (recurring) (ONCR) | payer OTHER, MEDICAID, SELFPAY ==
[2025-05-23 11:25] LABS: Hematocrit 26.3 % (36-47); Hemoglobin 8.20 g/dL (11.27-16.99)
--- NOTE | 2025-05-23 16:09 | PC.NURSE ---
[address] Richmond HGb 82 no blood needed per MD
== END 2025-06-16 23:59 | disposition home or self-care (01) ==
PROVIDERS: Family Medicine; PCP Family Medicine; Visit Provider Internal Medicine
DX: N18.9 Chronic kidney disease, unspecified (principal); D63.1 Anemia in chronic kidney disease
CPT/HCPCS: 36415; 85014; 85018; 86850; 86900

== ENCOUNTER 2025-06-11 10:04 | Emergency (ER) | payer OTHER, MEDICAID, SELFPAY ==
--- OUTSIDE RECORDS SUMMARY | 2003-10-16 19:00 | XMS_ITS | Continuity of Care Document ---
Author Name [facility] Address [address] [place] [address] Organization [facility] Care Team Providers Care Sinker Winder Name Role Phone [facility] Unavailable Unavailable Problems Problem Status Onset Date Problem Type Date of Resolution Comments Source Body mass index 30+ - obesity (finding) Active Condition Added by Discern Rule PROB_MOD_BMI Obesity (disorder) Active Condition A dded by Discern Rule PROB_MOD_BMI Mixed acid-base balance disorder (disorder) Diagnosis Stimulant abuse (disorder) Diagnosis Chronic kidney disease due to hypertension (disorder) Diagnosis Chronic kidney disease (disorder) Diagnosis Blood in urine (finding) Diagnosis Exposure to 2019 novel coronavirus Diagnosis Thrombocytopenic disorder (disorder) Diagnosis Hypokalemia (disorder) Diagnosis Obesity (disorder) Diagnosis Refused procedure - parent's wish (context-dependent category) Diagnosis Obese class I (finding) Diagnosis
--- OUTSIDE RECORDS SUMMARY | 2025-06-03 19:00 | XMS_ITS ---
Author Name Sarah Freeman Address [address] [place] [address] Phone [phone] Organization [facility] e, NA DOCUMENT DISCLAIMER Multiple document versions may exist, please be sure you review the latest version. The information in the [facility] Progress Note Document represents a providers documented clinical note containing certain health and medical information. It may not contain the complete medical history for the patient and should be independently verified. The represented time in the document is Eastern Time PROVIDER ROUNDING NOTE COMPREHENSIVE Patient:?Debo?Sidney,?1990,?34y,?F Dialysis?Location:?[facility] Attending?Meter Maker:?Omid Service?Date:?06/04/2025 Service?Provider:?Sarah?Pete,? I?met?face?to?face?with?the?patient?today. 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 disease?with?stage?1?through?stage?4?chronic?kidney?dis ease,?or?unspecified?chronic?kidney?disease Comments:?VSS,?blood?pressure?and?goal. She?is?feeling?stronger?and?appetite?increasing. Medications?and?labs?reviewed. 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 BP?Stand?Pre ??06/01/2025:?161/122 ??05/30/2025:?148/98 BP?Sit?Pre ??06/04/2025:?153/100 ??06/01/2025:?188/172 ??05/30/2025:?136/105 BP?Stand?Post ??06/04/2025:?125/88 ??06/01/2025:?143/87 ??05/30/2025:?117/73 BP?Sit?Post ??06/04/2025:?140/86 ??06/01/2025:?151/83 ??05/30/2025:?118/62 Tx?Duration ??06/04/2025:?3:43 ??06/01/2025:?3:30 ??05/30/2025:?3:41 Missed?Treatments 0?-?last?30?days 0?-?last?60?days FLUID?ASSESSMENT Comments:?Did?lose?weight?with?recent?hospitalization?however&#16 0;has?gained?some?back?now.?Increased?EDW EDW?(kg) ??06/04/2025:?76.5 ??06/01/2025:?76.5 ??05/30/2025:?73.0 Weight?Pre?(kg) ??06/04/2025:?78.3 ??06/01/2025:?77.5 ??05/30/2025:?79.3 Weight?Post?(kg) ??06/04/2025:?76.5 ??06/01/2025:?75.1 ??05/30/2025:?76.0 PWV?(kg) ??06/04/2025:?0.0 ??06/01/2025:?-1.4 ??05/30/2025:?3.0 UF?Rate?(mL/kg/hr) ??06/04/2025:?6.3 ??06/01/2025:?9.1 ??05/30/2025:?11.8 ADEQUACY?ASSESSMENT Comments:?Stable?trend spKt/V,?URR ??05/23/2025:?1.66,?77.0 ??05/09/2025:?1.74,?78.0 ??03/23/2025:?1.42,?70.0 ACCESS?ASSESSMENT ??Access?Type:?CVCatheter ??Access?SubType:?Tunneled ??Access?Status:?Active?(In?Use)?-?06/01/2024 ??Access?Location:?Chest ??Placed:?06/01/2024 Vascular?access?reviewed.?Current?access?is?permanent?and?functioning?well. ANEMIA?ASSESSMENT Comments:?On?IV?iron?and?MALGORZATA?protocol. ?Improving?after?recent?hospital?stay. HGB,?TSAT ??05/30/2025:?8.4,?- ??05/23/2025:?8.4,?23.0 ??05/16/2025:?6.6,?- ?? Ferritin ??03/28/2025:?1174.0 ??03/23/2025:?930.0 ??12/20/2024:?875.0 Mircera,?IVP?(mcg) ??05/28/2025:?200 ??05/14/2025:?200 ??03/26/2025:?150 Iron?Sucrose?(Venofer)?(mg) ??06/01/2025:?100 ??05/30/2025:?100 ??05/28/2025:?100 BMM?ASSESSMENT Comments:?Stopped?calcitriol. On?Sensipar Phos?is?at?goal. PTH,?Intact ??03/23/2025:?49.0 ??12/20/2024:?655.0 ?? Calcium,?Phosphorus ??05/23/2025:?8.9,?4.3 ??05/09/2025:?10.0,?8.0 ??03/23/2025:?10.2,?6.2 Vitamin?D?(Calcitriol)?Oral?(mcg) ??03/30/2025:?1.5 ??03/28/2025:?1.5 ??03/26/2025:?1.5 Cinacalcet?(Sensipar)?(mg) ??06/01/2025:?30 ??05/30/2025:?30 ??05/28/2025:?30 NUTRITION?ASSESSMENT Comments:?Recent?illness?and?hospitalization. Ed?to?increase?protein?in?diet. Potassium,?Albumin ??05/23/2025:?4.1,?3.4 ??05/09/2025:?5.1,?3.4 ??03/23/2025:?5.1,?3.9 ?? eNPCR ??05/23/2025:?0.53 ??03/23/2025:?0.74 ??02/21/2025:?0.57 PHYSICAL?EXAM Exam?Performed.?Vital?Signs?Reviewed.?CV?-?Blood?pressure&#1 60;noted.?EXT?-?No?edema.?EXT?-?No?ulcers. DIAGNOSIS Chief?Complaint:?N18.6?End?stage?renal?disease Patient?is?stable. Patient?data?updated?06/04/2025?at?11:08?AM Signed?By:?Pete,?Sarah???on?06/04/2025?11:17:18?AM END OF DOCUMENT
--- OUTSIDE RECORDS SUMMARY | 2025-06-10 19:00 | XMS_ITS ---
Author Name Meme Cagle Address [address] [place] [address] Phone [phone] Organization [facility] e, NA DOCUMENT DISCLAIMER Multiple document versions may exist, please be sure you review the latest version. The information in the [facility] Progress Note Document represents a providers documented clinical note containing certain health and medical information. It may not contain the complete medical history for the patient and should be independently verified. The represented time in the document is Eastern Time PROVIDER ROUNDING NOTE BASIC Patient:?Debo?Sidney,?1990,?34y,?F Dialysis?Location:[place] Attending?Tar Roofer:?Omid Service?Date:?06/11/2025 Service?Provider:?Meme?Gurjit,?FINANCE ASSOCIATE I?met?face?to?face?with?the?patient?today. 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 She?is?not?on?a?BB.?may?need?t?consider?if?HR?is?still?elevated Medications?and?labs?reviewed. 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 Blood?pressure?controlled.?No?changes?indicated.? BP?Stand?Pre ??06/08/2025:?151/101 ??06/06/2025:?150/103 BP?Sit?Pre ??06/08/2025:?139/93 ??06/06/2025:?137/82 ??06/04/2025:?153/100 BP?Stand?Post ??06/08/2025:?131/80 ??06/06/2025:?101/54 ??06/04/2025:?125/88 BP?Sit?Post ??06/08/2025:?120/83 ??06/06/2025:?101/52 ??06/04/2025:?140/86 Tx?Duration ??06/08/2025:?3:33 ??06/06/2025:?3:34 ??06/04/2025:?3:43 Missed?Treatments 0?-?last?30?days 0?-?last?60?days FLUID?ASSESSMENT Comments:?Did?lose?weight?with?recent?hospitalization?however&#16 0;has?gained?some?back?now.?Increased?EDW EDW?(kg) ??06/08/2025:?76.5 ??06/06/2025:?76.5 ??06/04/2025:?76.5 Weight?Pre?(kg) ??06/08/2025:?81.5 ??06/06/2025:?77.7 ??06/04/2025:?78.3 Weight?Post?(kg) ??06/08/2025:?79.2 ??06/06/2025:?77.7 ??06/04/2025:?76.5 PWV?(kg) ??06/08/2025:?2.7 ??06/06/2025:?1.2 ??06/04/2025:?0.0 UF?Rate?(mL/kg/hr) ??06/08/2025:?8.2 ??06/06/2025:?0 ??06/04/2025:?6.3 ADEQUACY?ASSESSMENT Comments:?Stable?trend spKt/V,?URR ??05/23/2025:?1.66,?77.0 ??05/09/2025:?1.74,?78.0 ??03/23/2025:?1.42,?70.0 ACCESS?ASSESSMENT ??Access?Type:?CVCatheter ??Access?SubType:?Tunneled ??Access?Status:?Active?(In?Use)?-?06/01/2024 ??Access?Location:?Chest ??Placed:?06/01/2024 Vascular?access?reviewed. ANEMIA?ASSESSMENT Comments:?On?IV?iron?and?MALGORZATA?protocol. ?Improving?after?recent?hospital?stay. HGB,?TSAT ??06/06/2025:?8.6,?- ??05/30/2025:?8.4,?- ??05/23/2025:?8.4,?23.0 ?? Ferritin ??06/06/2025:?1389.0 ??03/28/2025:?1174.0 ??03/23/2025:?930.0 Mircera,?IVP?(mcg) ??05/28/2025:?200 ??05/14/2025:?200 ??03/26/2025:?150 Iron?Sucrose?(Venofer)?(mg) ??06/06/2025:?100 ??06/04/2025:?100 ??06/01/2025:?100 BMM?ASSESSMENT Comments:?Stopped?calcitriol. On?Sensipar Phos?is?at?goal. PTH,?Intact ??03/23/2025:?49.0 ??12/20/2024:?655.0 ?? Calcium,?Phosphorus ??05/23/2025:?8.9,?4.3 ??05/09/2025:?10.0,?8.0 ??03/23/2025:?10.2,?6.2 Vitamin?D?(Calcitriol)?Oral?(mcg) ??03/30/2025:?1.5 ??03/28/2025:?1.5 ??03/26/2025:?1.5 Cinacalcet?(Sensipar)?(mg) ??06/08/2025:?30 ??06/06/2025:?30 ??06/04/2025:?30 NUTRITION?ASSESSMENT Comments:?Recent?illness?and?hospitalization. Ed?to?increase?protein?in?diet. Potassium,?Albumin ??05/23/2025:?4.1,?3.4 ??05/09/2025:?5.1,?3.4 ??03/23/2025:?5.1,?3.9 ?? eNPCR ??05/23/2025:?0.53 ??03/23/2025:?0.74 ??02/21/2025:?0.57 DIAGNOSIS Chief?Complaint:?N18.6?End?stage?renal?disease Patient?data?updated?06/11/2025?at?8:44?AM Signed?By:?Gurjit,?Meme,?FINANCE ASSOCIATE??on?06/11/2025?8:47:21?AM END OF DOCUMENT
[2025-06-11 10:05] VITALS: BP 173/127; PULSE 125; RESP 19; TEMP 36.4; O2SAT 98
--- NOTE | 2025-06-11 10:10 | XR_ITS ---
WS: [id number] Exam: XR chest 1V portable [id number] Date/Time of Exam: 06/11/2025 10:13 AM Reason For Exam: htn Comparison 05/05/2024. Mild plaque atelectasis in the LEFT base. Remaining lung king are clear no pneumothorax or pleural effusion. Heart size top limits normal. The mediastinum is not widened. Status post median sternotomy. A right-sided double-lumen dialysis catheter extends into the RIGHT atrium. Bony structures are intact. XR/XR chest 1V portable [id number] IMPRESSION: 1. LEFT basal plaque atelectasis. No acute process.
--- OUTSIDE RECORDS SUMMARY | 2025-06-11 10:14 | XMS_ITS | Encounter Summary ---
Author Organization [facility] Address [address] [facility] [address] [place] [address] Phone Care Team Providers Care Oil Field Pipeline Supervisor Name Role Phone Laurent Wolfe MD Primary Care Provider [phone] Reason for Visit * Reason Comments Med Refill Encounter Details Date Type Department Care Team (Late st Contact Info) Description 12/21/2024 Refill [facility] [address] [facility] [address] [place] [address] Sarah Freeman MD [address] [facility] [address] [place] [address] Social History Tobacco Use Types [...] on filedocumented in this encounter Care Teams Oil Field Pipeline Supervisor Relationship Specialty Start Date End Date Laurent Wolfe MD [address] [place] [address] PCP - General Family Medicine 11/16/21 documented as of this encounter
--- OUTSIDE RECORDS SUMMARY | 2025-06-11 10:14 | XMS_ITS | Encounter Summary ---
Author Organization [facility] Address [address] [facility] [address] [place] [address] Phone Care Team Providers Care Mold Capper Name Role Phone Laurent Wolfe MD Primary Care Provider [phone] Reason for Visit * Reason Comments Med Refill Encounter Details Date Type Department Care Team (Late st Contact Info) Description 01/26/2024 Refill [facility] [address] [facility] [address] [place] [address] Sarah Freeman MD [address] [facility] [address] [place] [address] Social History Tobacco Use Types [...] 01/27/2024 Unless otherwise specified, test(s) performed at: [facility], [address] [place], [place] [id number] STERILIZATION SPECIALIST: Robby Hartley M.D. For any questions, please call customer service at FREQUENCY:OTHER Resulting Agency Comment Specimen source: Blood us Sarah Freeman MD LAB BLOOD ORDERABLES Final Re sult [facility] See order comments or contact performing lab Unknown, [place] documented in this encounter Visit Diagnoses Not on filedocumented in this encounter Care Teams Mold Capper Relationship Specialty Start Date End Date Laurent Wolfe MD [address] [place] [address] PCP - General Family Medicine 11/16/21 documented as of this encounter
--- OUTSIDE RECORDS SUMMARY | 2025-06-11 10:14 | XMS_ITS | Encounter Summary ---
Author Organization [facility] Address [address] [facility] [address] [place] [address] Phone Care Team Providers Care Cinder Pitman Name Role Phone Laurent Wolfe MD Primary Care Provider [phone] Encounter Details Date Type Department Care Team (Late st Contact Info) Description 11/16/2021 Orders Only [facility] [address] [place] [address] Stage 3 chronic kidney disease, [...] kidney documented in this encounter Care Teams Cinder Pitman Relationship Specialty Start Date End Date Laurent Wolfe MD [address] [place] [address] PCP - General Family Medicine 11/16/21 documented as of this encounter
--- OUTSIDE RECORDS SUMMARY | 2025-06-11 10:14 | XMS_ITS | Encounter Summary ---
Author Organization [facility] Address [address] [place] [address] Care Team Providers Care Door Builder Name Role Phone Laurent Wolfe MD Primary Care Provider [phone] Encounter Details Date Type Department Care Team ([facility] Contact Info) Description 04/05/2025 Results Follow-Up [facility] Emergency Medicine [address] [place] [phone] Sunita Tinoco RN BLOOD CULTURE, BLOOD CULTURE Social History Tobacco Use Types Packs/Day Years Used Date Smoking Tobacco: Every Day Cigarettes 0.2 22.6 Started: 2002 Smokeless Tobacco: Never Alcohol Use Standard Drinks/Week Comments Never 0 (1 standard drink = 0.6 oz pur e alcohol) Feeling Safe Answer Date Recorded Are you in a relationship wi th someone who hurts you emotionally and/or physically? No 04/04/2025 Food Insecurity Answer Date Recorded Patient needs follow up regardin 02/06/2025 Transportation Needs Answer Date Record ed Patient needs follow up regardin 02/06/2025 Housing Stability Answer Date Recorded Social/Environmental Concerns No concerns Utility Needs Answer Date Recorded Patient needs follow up regardin 02/06/2025 Comments No Sex and Gender Information Value [...] documented as of this encounter Care Teams Door Builder Relationship Specialty Start Date End Date Laurent Wolfe MD [address] [address] PCP - General Family Practice 01/10/22 documented as of this encounter
--- OUTSIDE RECORDS SUMMARY | 2025-06-11 10:14 | XMS_ITS | Encounter Summary ---
Author Organization [facility] Address [address] [facility] [address] [place] [address] Phone Care Team Providers Care Restaurant Mgr Name Role Phone Laurent Wolfe MD Primary Care Provider [phone] Reason for Visit * Reason Comments Med Refill Encounter Details Date Type Department Care Team (Late st Contact Info) Description 02/17/2024 Refill [facility] [address] [facility] [address] [place] [address] Sarah Freeman MD [address] [facility] [address] [place] [address] Social History Tobacco Use Types [...] on filedocumented in this encounter Care Teams Restaurant Mgr Relationship Specialty Start Date End Date Laurent Wolfe MD [address] [place] [address] PCP - General Family Medicine 11/16/21 documented as of this encounter
--- OUTSIDE RECORDS SUMMARY | 2025-06-11 10:14 | XMS_ITS | Encounter Summary ---
Author Organization [facility] Address [address] [facility] [address] [place] [address] Phone Care Team Providers Care Phytochemistry Professor Name Role Phone Laurent Wolfe MD Primary Care Provider [phone] Reason for Visit * Reason Comments Med Refill Encounter Details Date Type Department Care Team (Late st Contact Info) Description 09/14/2024 Refill [facility] [address] [facility] [address] [place] [address] Sarah Freeman MD [address] [facility] [address] [place] [address] Social History Tobacco Use Types [...] on filedocumented in this encounter Care Teams Phytochemistry Professor Relationship Specialty Start Date End Date Laurent Wolfe MD [address] [place] [address] PCP - General Family Medicine 11/16/21 documented as of this encounter
--- OUTSIDE RECORDS SUMMARY | 2025-06-11 10:14 | XMS_ITS | Encounter Summary ---
Author Organization [facility] Address [address] [facility] [address] [place] [address] Phone Care Team Providers Care Clay Thrower Name Role Phone Laurent Wolfe MD Primary Care Provider Reason for Visit * Reason Comments Med Refill Encounter Details Date Type Department Care Team (Late st Contact Info) Description 12/13/2024 Refill [facility] [address] [facility] [address] [address] Sarah Freeman MD [address] [facility] [address] [facility] [address] [place] [address] Social History Tobacco Use Types [...] [facility] 12/13/2024 12/14/2024 9:2 0 AM SIDING INSTALLER Narrative JASON - 12/14/2024 Unless otherwise specified, test(s) performed at: [facility], [address] [place] [id number] LANDSCAPER: Robby Hartley M.D. For any questions, please call customer service at FREQUENCY:OTHER Resulting Agency Comment Specimen source: Blood us Sarah Freeman MD LAB BLOOD ORDERABLES Final Re sult [facility] See order comments or contact performing lab Unknown, [place] documented in this encounter Visit Diagnoses Not on filedocumented in this encounter Care Teams Clay Thrower Relationship Specialty Start Date End Date Laurent Wolfe MD [address] [place] [address] PCP - General Family Medicine 11/16/21 documented as of this encounter
--- OUTSIDE RECORDS SUMMARY | 2025-06-11 10:14 | XMS_ITS | Encounter Summary ---
Author Organization [facility] Address [address] [facility] [address] [place] [address] Phone Care Team Providers Care Media Relations Intern Name Role Phone Laurent Wolfe MD Primary Care Provider [phone] Reason for Visit * Reason Comments Med Refill Encounter Details Date Type Department Care Team (Late st Contact Info) Description 11/15/2024 Refill [facility] [address] [facility] [address] [address] Sarah Freeman MD [address] [facility] [address] [facility] [address] [place] [address] Social History Tobacco Use Types [...] [facility] 11/15/2024 11/16/2024 9:4 8 AM LEAD PRINCIPAL TECHNICAL ARCHITECT Narrative JASON - 11/16/2024 Unless otherwise specified, test(s) performed at: [facility], [address] [place] [address] COMMERCIAL LEASING AGENT: Robby Hartley M.D. For any questions, please call customer service at FREQUENCY:OTHER Resulting Agency Comment Specimen source: Blood us Sarah Freeman MD LAB BLOOD ORDERABLES Final Re sult [facility] See order comments or contact performing lab Unknown, [place] documented in this encounter Visit Diagnoses Not on filedocumented in this encounter Care Teams Media Relations Intern Relationship Specialty Start Date End Date Laurent Wolfe MD [address] [place] [address] PCP - General Family Medicine 11/16/21 documented as of this encounter
--- OUTSIDE RECORDS SUMMARY | 2025-06-11 10:14 | XMS_ITS | Encounter Summary ---
Author Organization [facility] Address [address] [facility] [address] [place] [address] Phone Care Team Providers Care Pool Manager Name Role Phone Laurent Wolfe MD Primary Care Provider [phone] Reason for Visit * Reason Comments Med Refill Encounter Details Date Type Department Care Team (Late st Contact Info) Description 11/13/2024 Refill [facility] [address] [facility] [address] [place] [address] Sarah Freeman MD [address] [facility] [address] [place] [address] Social History Tobacco Use Types [...] on filedocumented in this encounter Care Teams Pool Manager Relationship Specialty Start Date End Date Laurent Wolfe MD [address] [place] [address] PCP - General Family Medicine 11/16/21 documented as of this encounter
--- OUTSIDE RECORDS SUMMARY | 2025-06-11 10:14 | XMS_ITS | Encounter Summary ---
Author Organization [facility] Address [address] [facility] [address] [place] [address] Phone Care Team Providers Care Licensed Appraiser Name Role Phone Laurent Wolfe MD Primary Care Provider [phone] Reason for Visit * Reason Comments Med Refill Encounter Details Date Type Department Care Team (Late st Contact Info) Description 10/23/2024 Refill [facility] [address] [facility] [address] [place] [address] Sarah Freeman MD [address] [facility] [address] [place] [address] Social History Tobacco Use Types [...] on filedocumented in this encounter Care Teams Licensed Appraiser Relationship Specialty Start Date End Date Laurent Wolfe MD [address] [place] [address] PCP - General Family Medicine 11/16/21 documented as of this encounter
--- OUTSIDE RECORDS SUMMARY | 2025-06-11 10:14 | XMS_ITS | Encounter Summary ---
Author Organization [facility] Address [address] [facility] [address] [place] [address] Phone Care Team Providers Care Assistant Program Director Name Role Phone Laurent Wolfe MD Primary Care Provider [phone] Reason for Visit * Reason Comments Med Refill Encounter Details Date Type Department Care Team (Late st Contact Info) Description 11/18/2024 Refill [facility] [address] [facility] [address] [place] [address] Sarah Freeman MD [address] [facility] [address] [place] [address] Social History Tobacco Use Types [...] on filedocumented in this encounter Care Teams Assistant Program Director Relationship Specialty Start Date End Date Laurent Wolfe MD [address] [place] [address] PCP - General Family Medicine 11/16/21 documented as of this encounter
--- OUTSIDE RECORDS SUMMARY | 2025-06-11 10:14 | XMS_ITS | Encounter Summary ---
Author Organization [facility] Address [address] [facility] [address] [place] [address] Phone Care Team Providers Care Yard Pilot Name Role Phone Laurent Wolfe MD Primary Care Provider [phone] Reason for Visit * Reason Comments Med Refill Encounter Details Date Type Department Care Team (Late st Contact Info) Description 06/24/2024 Refill [facility] [address] [facility] [address] [place] [address] Sarah Freeman MD [address] [facility] [address] [place] [address] Social History Tobacco Use Types [...] on filedocumented in this encounter Care Teams Yard Pilot Relationship Specialty Start Date End Date Laurent Wolfe MD [address] [place] [address] PCP - General Family Medicine 11/16/21 documented as of this encounter
--- OUTSIDE RECORDS SUMMARY | 2025-06-11 10:14 | XMS_ITS | Encounter Summary ---
Author Organization [facility] Address [address] [facility] [address] [place] [address] Phone Care Team Providers Care Case Investigator Name Role Phone Laurent Wolfe MD Primary Care Provider Reason for Visit * Reason Comments Med Refill Encounter Details Date Type Department Care Team (Late st Contact Info) Description 10/15/2024 Refill [facility] [address] [facility] [address] [place] [address] Sarah Freeman MD [address] [facility] [address] [place] [address] Social History Tobacco Use Types [...] on filedocumented in this encounter Care Teams Case Investigator Relationship Specialty Start Date End Date Laurent Wolfe MD [address] [place] [address] PCP - General Family Medicine 11/16/21 documented as of this encounter
--- NOTE | 2025-06-11 10:15 | W.ED.GENADLT ---
HPI - General Adult General: Chief complaint: General Medical Stated complaint: Hypertension, Tachy Time Seen by Provider: 06/11/25 10:06 History of Present Illness: 34-year-old female with a history of end-stage renal disease on dialysis, hepatitis C, congestive heart failure, hypertension, and recent valve replacement who presents to the emergency room from dialysis by ambulance with tachycardia and hypertension. Says for the last week she has just felt cold and today it was worse and she was shivering. No fever. Heart rate is in the 120s. Blood pressure is quite elevated at 173/127. She says she is not really symptomatic other than feeling cold. No chest pain. She does not notice the palpitations. Says her heart does funny things and she had multiple surgeries recently. No cough. No abdominal pain. No vomiting. Related Data Home Medications ?Medication ?Instructions ?Recorded ?Confirmed dicyclomine 10 mg capsule 10 mg PO TID PRN Cramps 05/08/21 05/05/24 docusate sodium 100 mg capsule 100 mg PO BID 11/10/21 05/05/24 acetaminophen 500 mg tablet 500 - 1,000 mg PO Q6H PRN Pain 02/19/22 05/07/24 aspirin 325 mg tablet 325 mg PO . DIRECTED 02/19/22 05/07/24 melatonin 10 mg tablet 10 mg PO BEDTIME PRN Sleep 02/19/22 05/07/24 amlodipine 10 mg tablet 10 mg PO DAILY 05/05/24 05/05/24 bumetanide 1 mg tablet 1 mg PO DIRECTED 05/05/24 05/05/24 cholecalciferol (vitamin D3) 50 50 mcg PO DAILY 05/05/24 05/05/24 mcg (2,000 unit) capsule losartan 50 mg tablet 50 mg PO BEDTIME 05/05/24 05/05/24 metolazone 5 mg tablet 5 mg PO EVERY OTHER DAY 05/05/24 05/05/24 minoxidil 10 mg tablet 10 mg PO BID 05/05/24 05/05/24 Previous Rx's ?Medication ?Instructions ?Recorded clonidine 0.3 mg/24 hr weekly 1 patch transdermal Q7D #4 ea 05/09/24 transdermal patch hydralazine 50 mg tablet 50 mg PO TID #90 tabs 05/09/24 isosorbide mononitrate 60 mg 60 mg PO DAILY #30 tabs 05/09/24 tablet,extended release 24 hr labetalol 200 mg tablet 300 mg (1.5 x 200 mg) PO BID #90 05/09/24 tabs Allergies Allergy/AdvReac Type Severity Reaction Status Date / Time adhesive Allergy Unknown Unknown Verified 06/11/25 10:14 Review of Systems Narrative: Constitutional symptoms: Negative except as documented in HPI. Skin symptoms: Negative except as documented in HPI. Eye symptoms: Negative except as documented in HPI. ENMT symptoms: Negative except as documented in HPI. Respiratory symptoms: Negative except as documented in HPI. Cardiovascular symptoms: Negative except as documented in HPI. Gastrointestinal symptoms: Negative except as documented in HPI. Genitourinary symptoms: Negative except as documented in HPI. Musculoskeletal symptoms: Negative except as documented in HPI. Neurologic symptoms: Negative except as documented in HPI. Psychiatric symptoms: Negative except as documented in HPI. Endocrine symptoms: Negative except as documented in HPI. PFSH ED PFSH: Medical History (Updated 06/11/25 @ 13:58 by Mely Haines MD) Hepatitis C Methamphetamine abuse Posterior reversible encephalopathy syndrome White matter disease HCV (hepatitis C virus) on Acute kidney failure Ischemic bowel disease CHF (congestive heart failure), NYHA class III Resistant hypertension Pericardial effusion CKD (chronic kidney disease) Cardiomyopathy EF- 48% with mod LVH, grade 1 diastolic dysfunction Hypertension LVH (left ventricular hypertrophy) Methamphetamine abuse Substance abuse Surgical History Status post biopsy of kidney Status post insertion of hemodialysis catheter S/P cholecystectomy Family History Other CAD (coronary artery disease) Hypertension Social History Smoking and tobacco/nicotine status: current every day tobacco/nicotine user cigarettes Packs smoked per day: 0.5 Alcohol intake: never Substance/Drug Use: former Date of last use: Quit using last year Household members: family and other Details: Lives with mother Housing: House Marital status: Single Current occupational status: unemployed Current gender identity: Female Physical Exam Narrative: EXAM NARRATIVE: General: Alert, no acute distress. Skin: Warm, dry. Head: Normocephalic, atraumatic. Neck: Supple, trachea midline. Eye: Extraocular movements are intact. Ears, nose, mouth and throat: mucosa moist. Cardiovascular: Regular, tachycardic, normal peripheral perfusion. Large well-healed scar the center of her chest. Respiratory: Lungs are clear to auscultation, respirations are non-labored, breath sounds are equal, Symmetrical chest wall expansion. Gastrointestinal: Soft, Nontender, Non distended Musculoskeletal: Normal ROM, no deformity. Neurological: Alert and oriented, No focal neurological deficit observed. Psychiatric: Cooperative, appropriate mood & affect. Course Vital Signs: Vital signs: Vital Signs Temperature 97.6 F 06/11/25 10:05 Pulse Rate 116 H 06/11/25 13:39 Respiratory Rate 19 H 06/11/25 10:05 Blood Pressure 118/73 06/11/25 13:39 Pulse Oximetry 98 06/11/25 13:39 Oxygen Delivery Me thod Room Air 06/11/25 13:39 MDM - General Adult Medical Decision Making Medical decision making: Differential diagnosis including but not limited to and based on the above HPI, review of systems and physical exam: Patient presents with hypertension: Essential hypertension. Stroke. acute coronary syndrome. kidney failure. congestive heart failure. anxiety. Orders placed to evaluate differential diagnosis based on the above differential, HPI and physical exam EKG: Time 1103. Rate 117. Sinus tachycardia with short OK, No ST-T changes, no ectopy, This was reviewed and interpreted by myself the ER physician at 1106 Chest x-ray: No acute process. Borderline cardiomegaly. Mild atelectasis. New sternotomy wires and a right sided central catheter. No infiltrate. No pneumothorax. This was reviewed and interpreted by myself the emergency room physician. I also reviewed the radiology report. Lab Review: Laboratory results were reviewed and interpreted by myself the emergency room physician. No leukocytosis. No anemia. Creatinine is 2.8 which would be expected in this dialysis patient. Serial troponins are 226 and 227 respectively which would indicate this is just her baseline given her renal failure. She has remained asymptomatic. No chest pain. I reviewed the patient's medical record. Reexamination: Patient remained stable. No increased work of breathing. No altered mental status. No focal motor deficits. Patient remains mildly tachycardic but asymptomatic. Will have her follow with her PCP Assessment and plan: Hypertension Tachycardia - Discharged home - Discussed plan with patient. Answered any questions. - Evaluation and treatment of this problem were appropriate in the emergency setting. Lab Data 06/11/25 10:40 06/11/25 10:40 Radiology Impressions Chest X-Ray 06/11/25 10:10 IMPRESSION: 1. LEFT basal plaque atelectasis. No acute process. Laboratory Results WBC 7.10 10^3/uL (3.29-11.43) 06/11/25 10:40 RBC 3.63 10^6/uL (3.85-5.65) L 06/11/25 10:40 Hgb 11.00 g/dL (11.27-16.99) L 06/11/25 10:40 Hct 35.6 % (36-47) L 06/11/25 10:40 MCV 98.1 fl (85-98) H 06/11/25 10:40 MCH 30.3 pg (27-33) 06/11/25 10:40 MCHC 30.9 g/dL (30-55) 06/11/25 10:40 RDW 14.7 % (12.1-15.1) 06/11/25 10:40 Plt Count 158 10^3/cmm (157-399) 06/11/25 10:40 MPV 11.0 fL (7.4-10.4) H 06/11/25 10:40 Neut % (Auto) 66.9 % 06/11/25 10:40 Lymph % (Auto) 17.7 % 06/11/25 10:40 [place] % (Auto) 8.9 % 06/11/25 10:40 Eos % (Auto) 5.1 % 06/11/25 10:40 Baso % (Auto) 0.7 % 06/11/25 10:40 Neut # (Auto) 4.75 10^3/uL (1.8-7.7) 06/11/25 10:40 Lymph # (Auto) 1.3 10^3/uL (0.8-4.8) 06/11/25 10:40 [place] # (Auto) 0.6 10^3/uL (0.2-0.9) 06/11/25 10:40 Eos # (Auto) 0.4 10^3/uL (0.0-0.8) 06/11/25 10:40 Baso # (Auto) 0.1 10^3/uL (0.0-0.1) 06/11/25 10:40 Nucleated RBC % (auto) 0 % 06/11/25 10:40 Nucleated RBCs # 0.0 /100WBC 06/11/25 10:40 Sodium 138 mmol/L (136-145) 06/11/25 10:40 Potassium 3.5 mmol/L (3.5-5.1) 06/11/25 10:40 Chloride 97 mmol/L (98-107) L 06/11/25 10:40 Carbon Dioxide 30 mmol/L (22-29) H 06/11/25 10:40 Anion Gap 14.5 (5-19) 06/11/25 10:40 BUN 6 mg/dL (6-20) 06/11/25 10:40 Creatinine 2.8 mg/dL (0.5-0.9) H 06/11/25 10:40 GFR Calculation 19.3 mL/min (90-130) L 06/11/25 10:40 Glucose 80 mg/dL (65-115) 06/11/25 10:40 Calculated Osmolality 283 mOsm/kg (285-295) L 06/11/25 10:40 Lactic Acid 0.8 mmol/L (0.5-2.2) 06/11/25 10:40 Calcium 9.3 mg/dL (8.5-10.5) 06/11/25 10:40 Total Bilirubin 0.3 mg/dL (0.15-1.2) 06/11/25 10:40 AST 13 U/L (0-32) 06/11/25 10:40 ALT 6 U/L (0-33) 06/11/25 10:40 Alkaline Phosphatase 135 U/L (35-105) H 06/11/25 10:40 Troponin T Baseline 227 ng/L (0-10) H* 06/11/25 10:40 Troponin T 120 Minute 226.3 ng/L (0-10) H 06/11/25 13:14 Delta Troponin T -0.7 ABS# (0-10) L 06/11/25 13:14 Total Protein 7.0 g/dL (6.6-8.7) 06/11/25 10:40 Albumin 4.0 g/dL (3.5-5.2) 06/11/25 10:40 Globulin 3.0 g/dL (1.3-4.6) 06/11/25 10:40 All radiology interpretation(s) finalized by discharge Discharge Plan Discharge Patient Disposition: Home Clinical Impression: Accelerated hypertension Condition: Stable Prescriptions: No Action docusate sodium 100 mg capsule 100 mg PO BID dicyclomine 10 mg capsule 10 mg PO TID PRN (Reason: Cramps) aspirin 325 mg Tablet 325 mg PO . DIRECTED acetaminophen 500 mg Tablet 500 - 1,000 mg PO Q6H PRN (Reason: Pain) melatonin 10 mg Tablet 10 mg PO BEDTIME PRN (Reason: Sleep) amlodipine 10 mg tablet 10 mg PO DAILY bumetanide 1 mg tablet 1 mg PO DIRECTED cholecalciferol (vitamin D3) 50 mcg (2,000 unit) capsule 50 mcg PO DAILY losartan 50 mg tablet 50 mg PO BEDTIME minoxidil 10 mg tablet 10 mg PO BID metolazone 5 mg tablet 5 mg PO EVERY OTHER DAY labetalol 200 mg Tablet 300 mg PO BID Qty: 90 0RF hydralazine 50 mg Tablet 50 mg PO TID Qty: 90 0RF clonidine 0.3 mg/24 hr Patch Weekly 1 patch transdermal Q7D Qty: 4 0RF isosorbide mononitrate 60 mg tablet extended release 24 hr 60 mg PO DAILY Qty: 30 0RF Discharge Orders: Discharge ED (Routine); Ordered 06/11/25 Ordered By: Mely Haines Referrals: Laurent Wolfe MD [Primary Care Provider, Family Practice] Discharge Diet: Usual diet Discharge Activity: Increase activity as tolerated Patient Instructions: Hypertension (ED), Opioid Safety, Pain Management, Patient Portal & Kunal Instructions Activity Restrictions/Additional Instructions: Thank you for choosing [facility] for your healthcare needs today. You have been screened and evaluated and felt safe for discharge. Health conditions do change or evolve sometimes and as such it is important that you follow up with your Primary Doctor to be re checked, 3-5 days is a general good time frame for follow up. You are always welcome to return to the ED for re assessment if your symptoms are worsening or you have new concerns Print Language: Tamazight Coding Level of Care Code ED Press Operator Heavy Duty for Guillermo Puente
--- OUTSIDE RECORDS SUMMARY | 2025-06-11 10:15 | XMS_ITS | Encounter Summary ---
Author Organization [facility] Address [address] [facility] [address] [place] [address] Phone Care Team Providers Care Administrative Hearing Officer Name Role Phone Laurent Wolfe MD Primary Care Provider [phone] Reason for Visit * Reason Comments Med Refill Encounter Details Date Type Department Care Team (Late st Contact Info) Description 07/16/2024 Refill [facility] [address] [facility] [address] [place] [address] Sarah Freeman MD [address] [facility] [address] [place] [address] Social History Tobacco Use Types [...] on filedocumented in this encounter Care Teams Administrative Hearing Officer Relationship Specialty Start Date End Date Laurent Wolfe MD [address] [place] [address] PCP - General Family Medicine 11/16/21 documented as of this encounter
--- OUTSIDE RECORDS SUMMARY | 2025-06-11 10:15 | XMS_ITS ---
Author Name [facility] Address [address] [place] [address] Phone [phone] Organization [facility] e, NA DOCUMENT DISCLAIMER Multiple document versions may exist, please be sure you review the latest version. The information in the [facility] Continuity of Care Document represents a summary of certain health and medical information. It may not contain the complete medical history for the patient and should be independently verified. The represented time in the document is Eastern Time. PROBLEMS Problem Code Status Onset Date Generalized anxiety disorder F41.1 Active May 25, 2025 Nonrheumatic mitral valve disorder, unspecified I34.9 Active [...] 2022 Diarrhea, unspecified R19.7 Active Januar y 2023 Unspecified viral hepatitis C without hepatic coma [...] SOCIAL HISTORY Tobacco Use Status Tobacco Type Light tobacco smoker Cigarettes Caregiver Characteristics Need Level ADL Type Relationship of Caregiver Independent N/A N/A Characteristics of Home environment Housing Status Patient Resides With [facility] Gender and Sex Information Gender Identity Sexual Orientation Female Decline to answer MEDICATIONS Prescribed Medications for Dialysis Treatments Medication Instructions Dosage Route Start Date End Date Stat us Cinacalcet (Sensipar) 3X Week 30 mg Oral June 28, 2024 June 27, 2025 Active Clonidine HCl PRN-may repeat x1 systolic > 180 or dystolic > 100 0.2 mg Oral October 30, 2024 October 29, 2025 Active Diphenhydramine PRN-may repeat x2 Itching 50 mg Intravenous - push May 15, 2024 May 14, 2025 Active Diphenhydramine PRN-may repeat x1 anxiety 25 mg Intravenous - push May 25, 2025 May 24, 2026 Active Heparin Sodium (Porcine) 1,000 Units/mL [...] November 17, 2024 November 16, 2025 Active Ondansetron HCl (Zofran) PRN-may repeat x1 nausea 4 mg Intravenous - push May 30, 2025 May 29, 2026 Active Cefepime Post Dialysis, Every Treatment 2000 mg Intravenous May 11, 2025 May 18, 2025 Discontinued Diphenhydramine PRN-may repeat x2 Itching 50 mg Intravenous - push May 16, 2025 May 15, 2026 Discontinued Iron Sucrose (Venofer) During Dialysis, 3X Week 100 mg Intravenous - push May 28, 2025 June 06, 2025 Discontinued Mircera During Dialysis, Every 2 weeks 200 mcg Intravenous - push May 14, 2025 May 13, 2026 Discontinued Vancomycin HCl During Dialysis, Every Treatment 1000 mg Intravenous May 11, 2025 May 18, 2025 Discontinued Home Medications Medication Instructions Dosage Route Start Date End Date Status alprazolam 0.5 mg Take by mouth twice a day as needed 1 tablet ORAL May 17, 2024 Active aspirin 325 mg Take by mouth once a day 1 capsule ORAL May 09, 2025 Active bisacodyl 10 mg Insert into rectum once a day as needed 1 suppository RECTAL May 09, 2025 Active clonidine HCl 0.1 mg Take by mouth three times a day as needed 2 tablet ORAL February 05, 2025 Active clonidine HCl 0.1 mg Take by mouth three times a day as directed 2 tablet ORAL May 23, 2025 Active Eliquis 5 mg Take by mouth twice a day 1 tablet ORAL May 23, 2025 Active folic acid 1 mg Take by mouth once a day 1 tablet ORAL May 23, 2025 Active gabapentin 100 mg Take by mouth [...] Active metolazone 5 mg Take by mouth every other day 1 tablet ORAL May 23, 2025 Active oxycodone 10 mg Take by mouth three times a day as needed for pain 1 tablet ORAL May 09, 2025 Active pantoprazole 40 mg Take by mouth once a day 1 tablet ORAL May 09, 2025 Active Renal Plex D Take by mouth every evening 1 tablet by mouth July 29, 2022 Active senna 8.6 mg Take by mouth once a day ORAL May 23, 2025 Active Sevelamer Carbonate Tablet 800 mg Take By Mouth Every 24 hours With Meals 11 Tablet By Mouth October 25, 2024 October 22, 2025 Active Vitamin D3 50 mcg (2,000 unit) Take by mouth once a day 1 capsule ORAL June 08, 2022 Active amlodipine 10 mg Take by mouth once a day 1 tablet ORAL April 11, 2025 May 23, 2025 Discontinued bumetanide 1 mg Take by mouth every other day 1 tablet ORAL May 23, 2025 Discontinued dicyclomine 10 mg Take by mouth three times a day 1 capsule ORAL May 23, 2025 Discontinued docusate sodium 100 mg Take by mouth twice a day 1 tablet ORAL May 23, 2025 Discontinued fluoxetine 40 mg Take by mouth once a day 1 capsule ORAL May 23, 2025 Discontinued metoprolol tartrate 100 mg Take by mouth three times a day 1 tablet ORAL May 23, 2025 Discontinued minoxidil 10 mg Take by mouth twice a day 1 tablet ORAL May 28, 2025 Discontinued VITAL SIGNS Post-Treatment Vital Signs Vital Sign Value Date / Time Blood Pressure-sitting 120/83 mmHg May 01:43 PM Blood Pressure-standing 131/80 mmHg May 182024 01:43 PM Heart Rate 120 beats per minute June 08, 2025 01:43 PM Respiratory Rate 18 breaths per minute May 01:43 PM Temperature 97.7 deg. F June 08, 2025 01:43 PM Weight Vital Sign Value Date / Time Estimated Dry Weight 76.5 kg June 04, 2025 11:59 PM Pre-Dialysis 81.50 kg June 08, 2025 01:43 PM Post-Dialysis 79.20 kg June 08, 2025 01:43 PM Other Other Value Date / Time Height 157 cm September 02 12:00 AM Body Mass Index 29.62 kg/m2 May 30, 2025 12:33 PM HEALTH CONCERNS Tuberculosis Testing TST Date Administered TST Date Read TST Result 06/08/2022 06/10/2022 Negative (<5) mm LAB RESULTS Hematology Result Type Result Value Relevant Referen ce Range Interpretation Date Platelets 213 1000/mcL 130 - 400 1000/mcL - Bautista 2024 WBC (No Diff) 9.27 1000/mcL 4.80 [...] 1000/mcL 130 - 400 1000/mcL - Apri 2024 Neutrophils 78.3 % 40.0 - 75.0 % High January 24, 2025 Platelets 239 1000/mcL 130 - 400 1000/mcL - February 21, 2025 WBC (No Diff) 9.03 1000/mcL 4.80 - 10.80 1000/mcL - February 21, 2025 Neutrophils 62.6 % 40.0 - 75.0 % - February 21 TIBC (Calc) 217 mcg/dL 185 - 515 mcg/dL - February 21, 2025 UIBC/TIBC 160 mcg/dL 155 - 355 mcg/dL - February 21, 2025 Transferrin Sat. (Calc) 26 % 20 - 55 % - February 21, 2025 Hemoglobin x 3 24.6 % 36.0 [...] 19.0 - 48.0 % Low March 23 Basophils 2.0 % 0.0 - 1.5 % [...] pg 27.0 - 31.0 pg - May 09, 025 Platelets 262 1000/mcL 130 - 400 1000/mcL - May 09, 2025 Hemoglobin x 3 24.6 % 36.0 - 48.0 % Low April RDW 15.8 % 11.5 - 14.5 % High May 09 WBC (No Diff) 10.93 1000/mcL 4.80 - 10.80 1000/mcL High May 09, 2025 Hemoglobin x 3 19.8 % 36.0 - 48.0 % Low April HGB 6.6 g/dL 12.0 - 16.0 g/dL Critically low May 16, 2025 Basophils 0.8 % 0.0 - 1.5 % - May 23 25 KAYLA 2.1 % 0.0 - 4.0 % - May 23 WBC (No Diff) 8.48 1000/mcL 4.80 - 10.80 1000/mcL - May 23, 2025 RBC 2.73 mill/mcL 4.20 - 5.40 mill/mcL Low May 23, 2025 HCT 27.4 % 37.0 - 47.0 % Low May 23, 2025 MCH 30.9 pg 27.0 - 31.0 pg - May 23, 2025 MCHC 30.8 g/dL 30.0 - 36.0 g/dL - May RDW 18.9 % 11.5 - 14.5 % High May 23, 2025 HGB 8.4 g/dL 12.0 - 16.0 g/dL Low May Hemoglobin x 3 25.2 % 36.0 - 48.0 % Low May 23, 2025 Platelets 185 1000/mcL 130 - 400 1000/mcL - 2024 Iron 42 mcg/dL 30 - 160 mcg/dL - May UIBC/TIBC 140 mcg/dL 155 - 355 mcg/dL Low May TIBC (Calc) 182 mcg/dL 185 - 515 mcg/dL Low May 23, 2025 Transferrin Sat. (Calc) 23 % 20 - 55 % - May 23, 2025 Eosinophil 7.9 % 0.0 - 7.0 % High May 23 25 Neutrophils 59.6 % 40.0 - 75.0 % - May 23, 2025 Lymphocytes 21.1 % 19.0 - 48.0 % - May 23, 2025 Monocytes 8.6 % 3.0 - 10.0 % - May 23 Hemoglobin x 3 25.2 % 36.0 - 48.0 % Low May 30, 2025 HGB 8.4 g/dL 12.0 - 16.0 g/dL Low May 172024 Ferritin 1389 ng/mL 10 - 291 ng/mL High June 06, 2025 Hemoglobin x 3 25.8 % 36.0 - 48.0 % Low June 06, 2025 HGB 8.6 g/dL 12.0 - 16.0 g/dL Low May 182024 Metabolic/Renal Result Type Result Value Relevant Referen ce Range Interpretation Date Vitamin B12 414 pg/mL 30 - 100 pg/mL High December 20, 2024 Sodium 138 mEq/L 136 - 145 mEq/L - March 23, 2025 Bicarbonate 23 mEq/L 22 - 29 mEq/L - March 23, Chloride 102 mEq/L 96 - 108 mEq/L - March 23 025 Potassium 5.1 mEq/L 3.5 - 5.1 [...] mEq/L 96 - 108 mEq/L Low May 09 025 Potassium 5.1 mEq/L 3.5 - 5.1 mEq/L - May 09, 2025 Bicarbonate 25 mEq/L 22 - 29 mEq/L - May 09 URR, Calc 78 % 65 - 80 % - May 09, 2025 BUN, Post 11 mg/dL 6 - 19 mg/dL - May 09 Potassium 4.1 mEq/L 3.5 - 5.1 mEq/L - May Chloride 92 mEq/L 96 - 108 mEq/L Low May 23, 2025 Bicarbonate 31 mEq/L 22 - 29 mEq/L High May 23, 2025 Creatinine, Serum 6.16 mg/dL 0.60 - 1.30 mg/dL High May 23, 2025 BUN/Creat Ratio 4.2 10.0 - 20.0 Low May Sodium 132 mEq/L 136 - 145 mEq/L Low May BUN, Post 6 mg/dL 6 - 19 mg/dL - May 23 025 URR, Calc 77 % 65 - 80 % - May 23 BUN 26 mg/dL 6 - 19 mg/dL High May 23 025 HD Adequacy Result Type Result Value Relevant Referen ce Range Interpretation Date Krt/V 0.00 No Reference Ran ge Provided - December 20, 2024 Krt/V 0.00 No Reference Ran ge Provided - February 21, 2025 spKt/V Gotch [...] Reference Range Provided - May 09, 2025 spKt/V Gotch 1.66 No Reference Ran ge Provided - May 23, 2025 wstdKt/V without residual 2.5 No Reference Range Provided - May 23, 2025 eKt/V ([place]) 1.43 No Reference Range Provided - May 23, 2025 wstdKt/V 2.5 No Reference Ran ge Provided - May 23, 2025 Krt/V 0.00 No Reference Ran ge Provided - May 23, 2025 wstdKt/V, residual 0.0 No Reference Range Provided - May 23, 2025 spKt/V (Daugirdas II) 1.66 No Reference Range Provided - May 23, 2025 Bone/Mineral Result Type Result Value Relevant [...] - 100.0 ng/mL - December 20, 2024 Corrected Ca x P Product 64 0 - 54 High March 23, 2025 Magnesium 2.3 mg/dL 1.6 - 2.6 mg/dL - March 23, 2025 Alkaline Phosphatase 64 U/L 35 - 104 U/L - 2024 Ca x P Product 63 0 - 54 High March 23 Phosphorus 6.2 mg/dL 2.6 - 4.5 mg/dL High March 23, 2025 Calcium, Total 10.2 mg/dL 8.4 - 10.2 mg/dL - March 23, 2025 PTH-Intact, Plasma 49 pg/mL 16 - 80 pg/mL - Mar Calcium, Total 10.0 mg/dL 8.4 - 10.2 mg/dL - May 09, 2025 Ca x P Product 80 0 - 54 High May 09 Phosphorus 8.0 mg/dL 2.6 - 4.5 mg/dL High May 09, 2025 Corrected Ca x P Product 84 0 - 54 High May 09, 2025 Calcium, Total 8.9 mg/dL 8.4 - 10.2 mg/dL - 2024 Phosphorus 4.3 mg/dL 2.6 - 4.5 mg/dL - May Ca x P Product 38 0 - 54 - May 23, 2025 Corrected Ca x P Product 40 0 - 54 - May 23, 2025 Liver/Nutrition Result Type Result Value Relevant Reference Range Interpre tation Date Globulin (Calc) 2.7 g/dL 2.0 - 4.0 g/dL - March 23, 2025 A/G Ratio 1.4 1.0 - 2.0 - March 23, 2025 Total Protein 6.6 g/dL 6.0 - 8.5 g/dL - March Albumin (BCG) 3.9 g/dL 3.5 - 5.2 g/dL - March eNPCR 0.74 No Reference Ran ge Provided - March 23, 2025 Albumin (BCG) 3.4 g/dL 3.5 - 5.2 g/dL Low April Total Protein 7.2 g/dL 6.0 - 8.5 g/dL - April Globulin (Calc) 3.8 g/dL 2.0 - 4.0 g/dL - May 09, 2025 A/G Ratio 0.9 1.0 - 2.0 Low May 09, 2025 Total Protein 6.4 g/dL 6.0 - 8.5 g/dL - May 23, 2025 A/G Ratio 1.1 1.0 - 2.0 - May 23 eNPCR 0.53 No Reference Ran ge Provided - May 23, 2025 Albumin (BCG) 3.4 g/dL 3.5 - 5.2 g/dL Low May 23, 2025 Globulin (Calc) 3.0 g/dL 2.0 - 4.0 g/dL - Augus t 2024 Immunochemistry Result Type Result Value Relevant Referen [...] 10.0 - 20.0 mcg/mL Low July 17, 2 024 Vancomycin, Trough < 3.0 mcg/mL 10.0 - 20.0 mcg/mL Low July 24, 2 024 Vancomycin, Trough 22.8 mcg/mL 10.0 - [...] Conventional Hemodialysis Data Element Value Order Date/Time June 04, 2025 Frequency 3X Week Treatment Days TueThuSat Dialyzer [id number] Optiflux Treatment Time (Total Minutes) 210 min Blood Flow Rate (mL/min) 450 mL/min Dialysate Flow Rate Manual 800 Estimated Dry Weight 76.5 kg Dialysate Concentrate 2.0 K, 2.5 Ca, 1.0 Mg, 100 Dextrose (G2251) Sodium (mEq/L) 138 mEq/L Bicarb Machine Setting (mEq/L) 32 mEq/L Dialysis Access Hemodialysis-CV Cath eter-Tunneled, Chest, [...] (mL/min) Dialysate Dialyzer Dialysis Access Meds Admin Aug 2024 Weight 78.30 kg Weight 76.50 kg 03:43:00 440 2.0 K, 2.5 Ca, 1.0 Mg, 100 Dextrose (G2251) 180nre Optifl ux Blood Pressure-sitting 153/100 mmHg Blood Pressure-sit ting 140/86 mmHg Heart Rate 121 beats per minute Blood Pressure-standing 125/88 mmHg Respiratory Rate 18 breaths per minute Heart Rate 116 beats per minute Temperature 98.0 deg. F Respiratory Rate 18 breaths per minute - - Temperature 97.8 deg. F June 06, 2025 Weight 77.70 kg Weight 77.70 kg 03:34:00 460 2.0 K, 2.5 Ca, 1.0 Mg, 100 Dextrose (G2251) 180nre Optiflux Hemodialysis-CV Catheter-Tunneled, Chest, Right Jugular Access Placed on June 01, 2024 Cinacalcet (Sensipar); 30mg,Oral Heparin Sodium (Porcine) 1,000 Units/mL Catheter Lock Arterial; 2400units,Arterial [place] Heparin Sodium (Porcine) 1,000 Units/mL Catheter Lock Venous; 2500units,Venous [place] Heparin Sodium (Porcine) 1,000 Units/mL Systemic; 3000units,Intravenous - push Iron Sucrose (Venofer); 100mg,Intravenous - push Ondansetron HCl (Zofran); 4mg,Intravenous - push Blood Pressure-sitting 137/82 mmHg Blood Pressure-sit ting 101/52 mmHg Blood Pressure-standing 150/103 mmHg Blood Pressure-st anding 101/54 mmHg Heart Rate 120 beats per minute Heart Rate 118 beats per minute Respiratory Rate 18 breaths per minute Respiratory Rate 18 breaths per minute Temperature 98.2 deg. F Temperature 98.1 deg. F June 08, 2025 Weight 81.50 kg Weight 79.20 kg 03:33:00 460 2.0 K, 2.5 Ca, 1.0 Mg, 100 Dextrose (G2251) 180nre Optiflux Hemodialysis-CV Catheter-Tunneled, Chest, Right Jugular Access Placed on June 01, 2024 Cinacalcet (Sensipar); 30mg,Oral Diphenhydramine; 25mg,Intravenous - push Heparin Sodium (Porcine) 1,000 Units/mL Catheter Lock Arterial; 2400units,Arterial [place] Heparin Sodium (Porcine) 1,000 Units/mL Catheter Lock Venous; 2500units,Venous [place] Heparin Sodium (Porcine) 1,000 Units/mL Systemic; 3000units,Intravenous - push Blood Pressure-sitting 139/93 mmHg Blood Pressure-sit ting 120/83 mmHg Blood Pressure-standing 151/101 mmHg Blood Pressure-st anding 131/80 mmHg Heart Rate 122 beats per minute Heart Rate 120 beats per minute Respiratory Rate 18 breaths per minute Respiratory Rate 18 breaths per minute Temperature 97.4 deg. F Temperature 97.7 deg. F
--- OUTSIDE RECORDS SUMMARY | 2025-06-11 10:15 | XMS_ITS | Encounter Summary ---
Author Organization [facility] Address [address] [address] Phone Care Team Providers Care Para Educator Name Role Phone Laurent Wolfe MD Primary Care Provider [phone] Reason for Visit * Reason Comments Med Refill Encounter Details Date Type Department Care Team (Late st Contact Info) Description 03/29/2024 Refill [facility] [address] [place] [address] Candie Herman, LABOR SUPERVISOR [address] [address] Social History Tobacco Use Types [...] 03/30/2024 Unless otherwise specified, test(s) performed at: [facility], [address] [place] [id number] SEISMOGRAPH HELPER: Robby Hartley M.D. For any questions, please call customer service at FREQUENCY:OTHER Resulting Agency Comment Specimen source: Blood us Sarah Freeman MD LAB BLOOD ORDERABLES Final Re sult [facility] See order comments or contact performing lab Unknown, [place] documented in this encounter Visit Diagnoses Not on filedocumented in this encounter Care Teams Para Educator Relationship Specialty Start Date End Date Laurent Wolfe MD [address] [place] [address] PCP - General Family Medicine 11/16/21 documented as of this encounter
--- OUTSIDE RECORDS SUMMARY | 2025-06-11 10:15 | XMS_ITS | Clinical Summary ---
Author Organization [facility], [facility] Address [address] [place] [address] Phone Care Team Providers Care Physician Credentialing Specialist Name Role Phone Laurent Wolfe MD Primary Care Provider [phone] Allergies No known active allergies Medications docusate [...] for mild pain Active ergocalciferol 1.25 MG (29058 UT) capsule Take 50,000 Units by mouth [...] (one) time each day 02/06/2022 Active cloNIDine (Sjtyzzmk-ZOX-4) 0.3 MG/24HR patch weekly Place 1 patch on the skin 1 (one) time per week 12 patch 3 04/14/2022 Active Active Problems Problem Noted Date Diagnosed Date Encounter for removal of dialysis catheter 08/11 Chronic kidney disease, Stage V 12/18/2021 Proteinuria 12/18/2021 Essential (primary) hypertension 12/18/2021 Encounters Date Type Department Care Team Description 06/11/[address] [place] [address] [facility], [facility] [address] [place] [phone] Meme Cagle NP End stage renal disease; Dependence on renal dialysis 06/06/2025 Orders Only [facility], [facility] [address] [place] [phone] Sarah Freeman MD 06/04/[address] [place] [address] [employer], [facility] [address] [place] [phone] Sarah Freeman MD End stage renal disease; Dependence on renal dialysis 05/30/2025 Orders Only [facility], [facility] [address] [place] [phone] Sarah Freeman MD 05/28/[address] [place] [address] [employer], [facility] [address] [place] [address] Meme Cagle NP End stage renal disease; Dependence on renal dialysis 05/23/[address] [place] [address] [employer], [facility] [address] [place] [address] Candie Herman NP End stage renal disease; Dependence on renal dialysis 05/23/2025 Orders Only [facility], [facility] [address] [place] [address] Sarah Freeman MD 05/16/2025 Orders Only [facility], [facility] [address] [place] [phone] Sarah Freeman MD 05/14/2025 Orders Only [facility], [facility] [address] [place] [address] Sarah Freeman MD 05/09/2025 Orders Only [facility], [facility] [address] [place] [address] Sarah Freeman MD 04/23/2025 Documentation Only [address] [place] [address], [facility] [address] [place] [phone] Candie Herman NP 04/15/2025 Telephone [facility], [facility] [address] [place] [address] Sarah Freeman MD 03/28/2025 Orders Only [facility], [facility] [address] [place] [address] Sarah Freeman MD 03/26/[address] [place] [address], [facility] [address] [place] [address] Meme Cagle NP End stage renal disease; Dependence on renal dialysis 03/23/2025 Orders Only [facility], [facility] [address] [place] [address] Sarah Freeman MD 03/19/[address] [place] [address], [facility] [address] [place] [phone] Meme Cagle NP End stage renal disease; Dependence on renal dialysis 03/14/2025 Orders Only [facility], [facility] [address] [place] [phone] Sarah Freeman MD 03/14/[address] [place] [address] [facility], [facility] [address] [place] [phone] Sarah Freeman MD End stage renal disease; Dependence on renal dialysis from Last 3 Months Family History Medical [...] Procedure Name Priority Date/Time Associated Diagnosis Comments CHEMISTRY Routine 06/06/2025 HEMATOLOGY Routine 06/06/2025 HEMATOLOGY Routine 05/30/2025 [facility] RESULTS Routine 05/23/2025 HD KINETICS Routine 05/23/2025 POST CHEMISTRY Routine 05/23/2025 CHEMISTRY Routine 05/23/2025 HEMATOLOGY Routine 05/23/2025 HEMATOLOGY Routine 05/16/2025 THERAPEUTIC DRUGS Routine 05/14/2025 [facility] RESULTS Routine 05/09/2025 HD KINETICS Routine 05/09/2025 POST CHEMISTRY Routine 05/09/2025 CHEMISTRY Routine 05/09/2025 HEMATOLOGY Routine 05/09/2025 CHEMISTRY Routine 03/28/2025 HEMATOLOGY Routine 03/28/2025 [facility] RESULTS Routine 03/23/2025 HD KINETICS Routine 03/23/2025 POST CHEMISTRY Routine 03/23/2025 CHEMISTRY Routine 03/23/2025 HEMATOLOGY Routine 03/23/2025 CHEMISTRY Routine 03/23/2025 HEMATOLOGY Routine 03/14/2025 from Last 3 Months Results * (ABNORMAL) HEMATOLOGY (06/06/2025) Only the most recent of8 resultswithin the time period is included. Hemoglobin 8.6(L) 12.0 - 16.0 g/dL [facility] Hemoglobin x 3 25.8(L) 36.0 - 48.0 % [facility] 06/06/2025 06/07/2025 10: 36 AM CDT Narrative [facility]2025 Unless otherwise specified, test(s) performed at: [facility], [address] [place] [address] DENTAL FLOSS PACKER: Robby Hartley M.D. For any questions, please call customer service at FREQUENCY:OTHER Resulting Agency Comment Specimen source: Blood Sarah Freeman MD LAB BLOOD ORDERABLES Final Re sult Performing Organization Address [facility] Co de Phone Number [facility] See order comments or contact performing lab Unknown, [place] * (ABNORMAL) [facility] Chemistry (06/06/2025) Only the most recent of6 resultswithin the time period is included. Pathologist [facility] Ferritin 1,389(H) 10 - 291 ng/mL [facility] 06/06/2025 06/07/2025 10: 57 AM CDT Narrative [facility] - 06/07/2025 Unless otherwise specified, test(s) performed at: [facility], [address] [place] [address] DENTAL FLOSS PACKER: Robby Hartley M.D. For any questions, please call customer service at FREQUENCY:OTHER Resulting Agency Comment Specimen source: Serum Sarah Freeman MD LAB BLOOD ORDERABLES Final Re sult Performing Organization Address [facility]/ZIP Co de Phone Number [facility] See order comments or contact performing lab Unknown, [place] * HD KINETICS (05/23/2025) Only the most recent of3 resultswithin the time period is included. % Urea Reduction 77 65 - 80 % [facility] 05/23/2025 05/24/2025 12: 10 PM CDT Narrative Resulting Agency Comment Specimen source: Plasma Sarah Freeman MD LAB BLOOD ORDERABLES Final Re sult [facility] See order comments or contact performing lab Unknown, [place] * POST CHEMISTRY (05/23/2025) Only the most recent of3 resultswithin the time period is included. Pathologist [facility] BUN Post Dialysis 6 6 - 19 mg/dL [facility] 05/23/2025 05/24/2025 12: 10 PM CDT Narrative [facility] - 05/25/2025 Unless otherwise specified, test(s) performed at: [facility], [address] [place] [address] DENTAL FLOSS PACKER: Robby Hartley M.D. For any questions, please call customer service at FREQUENCY:MONTHLY Resulting Agency Comment Specimen source: Plasma Sarah Freeman MD LAB BLOOD ORDERABLES Final Re sult Performing Organization Address [facility] Co de Phone Number [facility] See order comments or contact performing lab Unknown, [place] * [facility] Results (05/23/2025) Only the most recent of3 resultswithin the time period is included. [facility] spKt/V (Daugirdas II) 1.66 [facility] spKt/V Gotch 1.66 [facility] ge Center eNPCR 0.53 [facility] WSTDKT/V 2.5 [facility] Center PCR 35.18 [facility] eKt/V Got 1.42 [facility] e Center nPCR_HD 0.58 [facility] eKt/V (Tattersall) 1.43 [facility] eKdrt/V 1.42 [facility] 05/23/2025 05/23/2025 [facility] Ordering Provider LAB BLOOD ORDERABLES Final Result [facility] Contact Performing lab Unknown, [place] * THERAPEUTIC DRUGS (05/14/2025) [facility] Vancomycin Tr 18.0 10.0 - 20.0 mcg/mL [facility] Comment: Verified by repeat analysis. Test performed at [facility], [address] [place] [address]. Telephone . Grinder Set Up Operator External: Cuauhtemoc Brenner MD., PhD. 05/14/2025 05/16/2025 8:0 6 AM CDT Narrative [facility] - 05/16/2025 Unless otherwise specified, test(s) performed at: [facility], [address] [place] [id number] DENTAL FLOSS PACKER: Robby Hartley M.D. For any questions, please call customer service at FREQUENCY:OTHER Resulting Agency Comment Specimen source: Serum us Sarah Freeman MD LAB BLOOD ORDERABLES Final Re sult [facility] [employer] See order comments or contact performing lab Unknown, [place] from Last 3 Months Insurance Medicaid [place] ([id number]) [facility] Medicare Care Teams Physician Credentialing Specialist Relationship Specialty Start Date End Date Laurent Wolfe MD [address] [place] [address] PCP - General Family Medicine 11/16/21
--- OUTSIDE RECORDS SUMMARY | 2025-06-11 10:15 | XMS_ITS | Encounter Summary ---
Author Organization [facility] Address [address] [place] [address] Care Team Providers Care Stone Mill Operator Name Role Phone Laurent Wolfe MD Primary Care Provider [phone] Reason for Visit * Reason Comments Med Refill Encounter Details Date Type Department Care Team ([facility] st Contact Info) Description 06/15/2022 Refill [facility] [address] [place] [address] Hamzah Moon MD [address] [place] [address] Social History Tobacco Use Types [...] documented as of this encounter Care Teams Stone Mill Operator Relationship Specialty Start Date End Date Laurent Wolfe MD [address] [place] [address] PCP - General Family Practice 01/10/22 documented as of this encounter
--- OUTSIDE RECORDS SUMMARY | 2025-06-11 10:15 | XMS_ITS | Encounter Summary ---
Author Organization [facility] Address [address] [address] Phone Care Team Providers Care Time Motion Analyst Name Role Phone Laurent Wolfe MD Primary Care Provider [phone] Reason for Visit * Reason Comments Med Refill Encounter Details Date Type Department Care Team (Late st Contact Info) Description 04/17/2024 Refill [facility] [address] [place] [address] Candie Herman QUALITY IMPROVEMENT COORDINATOR (RN) [address] [address] Social History Tobacco Use Types [...] on filedocumented in this encounter Care Teams Time Motion Analyst Relationship Specialty Start Date End Date Laurent Wolfe MD [address] [place] [address] PCP - General Family Medicine 11/16/21 documented as of this encounter
--- OUTSIDE RECORDS SUMMARY | 2025-06-11 10:15 | XMS_ITS | Encounter Summary ---
Author Organization [facility] Address [address] [place] [address] Phone Care Team Providers Care Steam Pressure Chamber Operator Name Role Phone Laurent Wolfe MD Primary Care Provider [phone] Encounter Details Date Type Department Care Team (Late Contact Info) Description 06/06/2025 Orders Only [facility] [address] [facility] [address] [place] [address] Sarah Freeman MD [address] [facility] [address] [place] [address] Social History Tobacco Use Types [...] Priority Date/Time Associated Diagnosis Comments HEMATOLOGY Routine 06/06/2025 CHEMISTRY Routine 06/06/2025 documented in this encounter Results * (ABNORMAL) [facility] Chemistry (06/06/2025) Ferritin 1,389(H) 10 - 291 ng/mL [facility] 06/06/2025 06/07/2025 10: 57 AM CDT Narrative [facility] - 06/07/2025 Unless otherwise specified, test(s) performed at: [facility], [address] [place], [place] [id number] FIBER ARTIST: Robby Hartley M.D. For any questions, please call customer service at FREQUENCY:OTHER Resulting Agency Comment Specimen source: Serum Sarah Freeman MD LAB BLOOD ORDERABLES Final Re sult Performing Organization Address [facility] de Phone Number [employer] [facility] [employer] See order comments or contact performing lab Unknown, [place] * (ABNORMAL) HEMATOLOGY (06/06/2025) Hemoglobin 8.6(L) 12.0 - 16.0 g/dL [facility] Hemoglobin x 3 25.8(L) 36.0 - 48.0 % [facility] 06/06/2025 06/07/2025 10: 36 AM CDT Narrative [facility] - 06/07/2025 Unless otherwise specified, test(s) performed at: [facility], [address] [place], [place] [id number] FIBER ARTIST: Robby Hartley M.D. For any questions, please call customer service at FREQUENCY:OTHER Resulting Agency Comment Specimen source: Blood us Sarah Freeman MD LAB BLOOD ORDERABLES Final Re sult Performing Organization Address [facility] de Phone Number [employer] See order comments or contact performing lab Unknown, [place] documented in this encounter Visit Diagnoses Not on filedocumented in this encounter Care Teams Steam Pressure Chamber Operator Relationship Specialty Start Date End Date Laurent Wolfe MD [address] [place] [address] PCP - General Family Medicine 11/16/21 documented as of this encounter
--- OUTSIDE RECORDS SUMMARY | 2025-06-11 10:15 | XMS_ITS | Encounter Summary ---
Author Organization [facility], [facility] Address [address] [facility] [address] [place] [address] Phone Care Team Providers Care Sales Associate Key Holder Name Role Phone Laurent Wolfe MD Primary Care Provider Encounter Details Date Type Department Care Team ([facility] Contact Info) Description 06/04/2025 Treatment [facility], [facility] [address] [facility] [address] [place] [address] Sarah Freeman MD [address] [facility] [address] [place] [address] End stage renal disease; Dependence on renal dialysis Social History Tobacco Use Types Packs/Day Years [...] as of this encounter Miscellaneous Notes * Dialysis Note - Sarah Freeman MD - 06/04/2025 12:00 AM CDT Patient: Debo Little, 1990, 34y, F Dialysis Location: [facility] Attending Family Resource Coordinator: Sarah Freeman Service Date: 06/04/2025 Service Provider: Sarah Freeman MD I met face to face with the patient today. OVERVIEW The patient presented with ESRD on dialysis Primary cause of renal failure: Hypertensive chronic kidney disease with stage 1 through stage 4 chronic kidney disease, or unspecified chronic kidney disease Comments: VSS, blood pressure and goal. She is feeling stronger and appetite increasing. Medications and labs reviewed. 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 BP Stand Pre 06/01/2025: 161/122 05/30/2025: 148/98 BP Sit Pre 06/04/2025: 153/100 06/01/2025: 188/172 05/30/2025: 136/105 BP Stand Post 06/04/2025: 125/88 06/01/2025: 143/87 05/30/2025: 117/73 BP Sit Post 06/04/2025: 140/86 06/01/2025: 151/83 05/30/2025: 118/62 Tx Duration 06/04/2025: 3:43 06/01/2025: 3:30 05/30/2025: 3:41 Missed Treatments 0 - last 30 days 0 - last 60 days FLUID ASSESSMENT Comments: Did lose weight with recent hospitalization however has gained some back now. Increased EDW EDW (kg) 06/04/2025: 76.5 06/01/2025: 76.5 05/30/2025: 73.0 Weight Pre (kg) 06/04/2025: 78.3 06/01/2025: 77.5 05/30/2025: 79.3 Weight Post (kg) 06/04/2025: 76.5 06/01/2025: 75.1 05/30/2025: 76.0 PWV (kg) 06/04/2025: 0.0 06/01/2025: -1.4 05/30/2025: 3.0 UF Rate (mL/kg/hr) 06/04/2025: 6.3 06/01/2025: 9.1 05/30/2025: 11.8 ADEQUACY ASSESSMENT Comments: Stable trend spKt/V, URR 05/23/2025: 1.66, 77.0 05/09/2025: 1.74, 78.0 03/23/2025: 1.42, 70.0 ACCESS ASSESSMENT Access Type: CVCatheter Access SubType: Tunneled Access Status: Active (In Use) - 06/01/2024 Access Location: Chest Placed: 06/01/2024 Vascular access reviewed. Current access is permanent and functioning well. ANEMIA ASSESSMENT Comments: On IV iron and MALGORZATA protocol. Improving after recent hospital stay. HGB, TSAT 05/30/2025: 8.4, - 05/23/2025: 8.4, 23.0 05/16/2025: 6.6, - Ferritin 03/28/2025: 1174.0 03/23/2025: 930.0 12/20/2024: 875.0 Mircera, IVP (mcg) 05/28/2025: 200 05/14/2025: 200 03/26/2025: 150 Iron Sucrose (Venofer) (mg) 06/01/2025: 100 05/30/2025: 100 05/28/2025: 100 BMM ASSESSMENT Comments: Stopped calcitriol. On Sensipar Phos is at goal. PTH, Intact 03/23/2025: 49.0 12/20/2024: 655.0 Calcium, Phosphorus 05/23/2025: 8.9, 4.3 05/09/2025: 10.0, 8.0 03/23/2025: 10.2, 6.2 Vitamin D (Calcitriol) Oral (mcg) 03/30/2025: 1.5 03/28/2025: 1.5 03/26/2025: 1.5 Cinacalcet (Sensipar) (mg) 06/01/2025: 30 05/30/2025: 30 05/28/2025: 30 NUTRITION ASSESSMENT Comments: Recent illness and hospitalization. Ed to increase protein in diet. Potassium, Albumin 05/23/2025: 4.1, 3.4 05/09/2025: 5.1, 3.4 03/23/2025: 5.1, 3.9 eNPCR 05/23/2025: 0.53 03/23/2025: 0.74 02/21/2025: 0.57 PHYSICAL EXAM Exam Performed. Vital Signs Reviewed. CV - Blood pressure noted. EXT - No edema. EXT - No ulcers. DIAGNOSIS Chief Complaint: N18.6 End stage renal disease Patient is stable. Patient data updated 06/04/2025 at 11:08 AM Signed By: Sarah Freeman MD on 06/04/2025 11:17:18 AM documented in this encounter Plan of Treatment Not on file documented as of this encounter Visit Diagnoses Diagnosis End stage renal disease Dependence on renal dialysis documented in this encounter Care Teams Sales Associate Key Holder Relationship Specialty Start Date End Date aLurent Wolfe MD [address] [place] [address] PCP - General Family Medicine 11/16/21 documented as of this encounter
--- OUTSIDE RECORDS SUMMARY | 2025-06-11 10:15 | XMS_ITS | Encounter Summary ---
Author Organization [facility] [employer], [facility] Address [address] [facility] [address] [place] [address] Phone Care Team Providers Care Chemistry Intern Name Role Phone Laurent Wolfe MD Primary Care Provider [phone] Encounter Details Date Type Department Care Team ([facility] Contact Info) Description 06/11/2025 [facility] [employer], [facility] [address] [facility] [address] [place] [address] Meme Cagle NP [address] [facility] [address] [place] [address] End stage renal disease; Dependence [...] encounter Miscellaneous Notes * Dialysis Note - Meme Cagle NP - 06/11/2025 12:00 AM CDT Patient: Debo Little, 1990, 34y, F Dialysis Location: [facility] Attending Facilities Maintenance Assistant: Sarah Freeman Service Date: 06/11/2025 Service Provider: Meme Cagle NP I met face to face with the patient today. OVERVIEW The patient presented with ESRD on dialysis Primary cause of renal failure: Hypertensive chronic kidney disease with stage 1 through stage 4 chronic kidney disease, or unspecified chronic kidney disease Comments: blood pressure and goal. HR running in 120's. She has been having n/v. She is not on a BB. may need t consider if HR is still elevated Medications and labs reviewed. 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 Blood pressure controlled. No changes indicated. BP Stand Pre 06/08/2025: 151/101 06/06/2025: 150/103 BP Sit Pre 06/08/2025: 139/93 06/06/2025: 137/82 06/04/2025: 153/100 BP Stand Post 06/08/2025: 131/80 06/06/2025: 101/54 06/04/2025: 125/88 BP Sit Post 06/08/2025: 120/83 06/06/2025: 101/52 06/04/2025: 140/86 Tx Duration 06/08/2025: 3:33 06/06/2025: 3:34 06/04/2025: 3:43 Missed Treatments 0 - last 30 days 0 - last 60 days FLUID ASSESSMENT Comments: Did lose weight with recent hospitalization however has gained some back now. Increased EDW EDW (kg) 06/08/2025: 76.5 06/06/2025: 76.5 06/04/2025: 76.5 Weight Pre (kg) 06/08/2025: 81.5 06/06/2025: 77.7 06/04/2025: 78.3 Weight Post (kg) 06/08/2025: 79.2 06/06/2025: 77.7 06/04/2025: 76.5 PWV (kg) 06/08/2025: 2.7 06/06/2025: 1.2 06/04/2025: 0.0 UF Rate (mL/kg/hr) 06/08/2025: 8.2 06/06/2025: 0 06/04/2025: 6.3 ADEQUACY ASSESSMENT Comments: Stable trend spKt/V, URR 05/23/2025: 1.66, 77.0 05/09/2025: 1.74, 78.0 03/23/2025: 1.42, 70.0 ACCESS ASSESSMENT Access Type: CVCatheter Access SubType: Tunneled Access Status: Active (In Use) - 06/01/2024 Access Location: Chest Placed: 06/01/2024 Vascular access reviewed. ANEMIA ASSESSMENT Comments: On IV iron and MALGORZATA protocol. Improving after recent hospital stay. HGB, TSAT 06/06/2025: 8.6, - 05/30/2025: 8.4, - 05/23/2025: 8.4, 23.0 Ferritin 06/06/2025: 1389.0 03/28/2025: 1174.0 03/23/2025: 930.0 Mircera, IVP (mcg) 05/28/2025: 200 05/14/2025: 200 03/26/2025: 150 Iron Sucrose (Venofer) (mg) 06/06/2025: 100 06/04/2025: 100 06/01/2025: 100 BMM ASSESSMENT Comments: Stopped calcitriol. On Sensipar Phos is at goal. PTH, Intact 03/23/2025: 49.0 12/20/2024: 655.0 Calcium, Phosphorus 05/23/2025: 8.9, 4.3 05/09/2025: 10.0, 8.0 03/23/2025: 10.2, 6.2 Vitamin D (Calcitriol) Oral (mcg) 03/30/2025: 1.5 03/28/2025: 1.5 03/26/2025: 1.5 Cinacalcet (Sensipar) (mg) 06/08/2025: 30 06/06/2025: 30 06/04/2025: 30 NUTRITION ASSESSMENT Comments: Recent illness and hospitalization. Ed to increase protein in diet. Potassium, Albumin 05/23/2025: 4.1, 3.4 05/09/2025: 5.1, 3.4 03/23/2025: 5.1, 3.9 eNPCR 05/23/2025: 0.53 03/23/2025: 0.74 02/21/2025: 0.57 DIAGNOSIS Chief Complaint: N18.6 End stage renal disease Patient data updated 06/11/2025 at 8:44 AM Signed By: Meme Cagle NP on 06/11/2025 8:47:21 AM documented in this encounter Plan of Treatment Not on file documented as of this encounter Visit Diagnoses Diagnosis End stage renal disease Dependence on renal dialysis documented in this encounter Care Teams Chemistry Intern Relationship Specialty Start Date End Date Laurent Wolfe MD [address] [place] [address] PCP - General Family Medicine 11/16/21 documented as of this encounter
--- OUTSIDE RECORDS SUMMARY | 2025-06-11 10:15 | XMS_ITS | Encounter Summary ---
Author Organization [facility] Address [address] [facility] [address] [place] [address] Phone Care Team Providers Care Make Up Operator Name Role Phone Laurent Wolfe MD Primary Care Provider [phone] Reason for Visit * Reason Comments Med Refill Encounter Details Date Type Department Care Team (Late st Contact Info) Description 07/25/2024 Refill [facility] [address] [facility] [address] [place] [address] Sarah Freeman MD [address] [facility] [address] [place] [address] Social History Tobacco Use Types [...] on filedocumented in this encounter Care Teams Make Up Operator Relationship Specialty Start Date End Date Laurent Wolfe MD [address] [place] [address] PCP - General Family Medicine 11/16/21 documented as of this encounter
--- OUTSIDE RECORDS SUMMARY | 2025-06-11 10:15 | XMS_ITS | Clinical Summary ---
Author Organization [facility] Address [address] [place] [address] Phone Care Team Providers Care Distribution Tech Name Role Phone Laurent Wolfe MD Primary Care Provider [phone] Allergies Active Allergy Reactions Criticality Noted Date [...] daily. 30 Tablet 01/15/20 22 Active cloNIDine ([id number] ) 0.3 mg/24 hr patch Apply 1 [...] 05/27/20 23 Active naloxone (NARCAN) 4 mg/spray [place], Non-Aerosol EMERGENCY USE ONLY: Administer 1 spray [...] by mouth 2 times daily. 01/04/20 Active Active Problems Problem Noted Date Diagnosed [...] Encounters Date Type Department Care Team Description 05/28/2025 External Device Data [facility] ABSTRACTION Provider, Abstract 05/07/2025 External Device Data [facility] ABSTRACTION Provider, Abstract 05/01/2025 External Device Data [facility] ABSTRACTION Provider, Abstract 04/29/2025 Telephone [facility] Vascular Surgery [place] [address] [address] Meg Glaser MD Referral 04/11/2025 12:05 PM CDT - 04/11/2025 11:59 PM CDT Hospital Encounter [facility] Emergency Medical Services [place] [address] [place] [address] Ambulance, [facility] Geoffrey Rasmussen MD Discharge Disposition: [facility] 04/09/2025 External Device Data ST[facility] ABSTRACTION Provider, Abstract 04/09/2025 External Device Data [facility] ABSTRACTION Provider, Abstract 04/05/2025 Results Follow-Up [facility] Emergency Medicine [address] [place] [address] Sunita Tinoco RN BLOOD CULTURE, BLOOD CULTURE 04/05/2025 Telephone [facility] Vascular Surgery [place] [phone] [phone] Meg Glaser MD Appointment Notification 04/04/2025 4:02 PM CDT - 04/11/2025 7:25 PM CDT Hospital Encounter [facility] 6A Medical Intensive Care [address] [place] [phone] Shikha Blankenship MD Lohia, MD Camacho Mendez Ammar, MD Meyer III, DO Grady Mejia Tasnuva Tarannum, MD Hypertensive emergency Discharge Disposition: [facility] 04/04/2025 11:28 AM CDT - 04/04/2025 3:09 PM CDT Emergency [facility] Emergency Medicine [address] [place] [phone] Lupe Reardon MD Symptomatic anemia (Primary Dx); Other hypervolemia; Transaminitis; Severe sepsis without septic shock ([facility]/HCC) Discharge Disposition: [facility] 04/04/2025 - 04/04/2025 11:59 PM CDT Hospital Encounter [facility] [address] [place] [address] Ambulance, [facility] Discharge Disposition: [facility] 04/04/2025 Travel 03/26/2025 External Device Data [...] 2025 10/29/2020 Medical Devices Implanted Type Area Fisher Weir Device Identifier Shelf Expiration Date Model / Serial / Lot Cath Dialysis Glidepath 14.5fr 24cm [facility] [id number] - [id number] Implanted:Qty: 1 on 06/01/2024 by Diego Salazar MD at [facility] Catheter Right: Chest BARD JD VASC 12/14/2025 [id number] / / [id number] Trialysis-3/19 /2025 Implanted:Qty: 1 on 01/02/2025 by Irineo Shah MD Catheter Right: Neck 10/16/2025 [id number] / / Clip Ligating Horizon Med Ti [id number] - [facility] - [id number] Implanted:Qty: 1 on 05/30/2024 by Leroy Devi MD at [facility] Clip Left: Arm TELEFLEX- WECK CLOSURE SYS [id number] 07/19/2028 [id number] / / [id number] Clip Ligating Horizon Red [id number] - Csc - [id number] Implanted:Qty: 1 on 05/30/2024 by Leroy Devi MD at [facility] Clip Left: Arm TELEFLEX INC [id number] 06/06/2028 [id number] / / [id number] Hemostatic Surgiflo 8ml W/ Thrombin 299 - [id number] Implanted:Qty: 1 on 05/30/2024 by Leroy Devi MD at [facility] Hemostatic Left: Arm J&J- [employer] INC [id number] 07/16/2025 2994 / / [id number] Hemostatic Surgifoam Sz100 1973 - [id number] Implanted:Qty: 1 on 05/30/2024 by Leroy Devi MD at [facility] Hemostatic Left: Arm J&J- [employer] END[employer] [id number] 02/16/2028 1974 / / [id number] Explanted Type Area Fisher Weir Device Identifier Shelf Expiration Date Model / Serial / [place] [id number] - [id number] Implanted:Qty : 1 on 08/12/2022 by Ron Zaragoza DO at [facility] Explanted:Qty : 1 on 10/22/2022 by Ron Zaragoza DO at [facility] Catheter Left: Abdomen MEDTRONIC - COVIDIEN [id number] 01/20/2027 [id number] / / [id number] Description:catheter intact 14.5fr X 23cm Glidepath Dialysis Catheter-05/28 Implanted:Qty : 1 on 05/28/2022 by Edmar Smiley MD Explanted:Qty : 1 on 08/12/2023 by Ángel Polo S Catheter Right: Chest Wall [id number] 12/15/2023 [id number] / / [id number] Description:14.5fr x 23cm Gl idePath Dialysis Catheter implanted right chest Cath Dialysis Power Trialysis Str 13fr [id number] - [id number] Implanted:Qty : 1 on 05/28/2024 by Edmar Smiley MD at [facility] Explanted:Qty : 1 on 06/01/2024 by Diego Salazar MD Catheter Right: Groin CR BARD- ACCESS SYS [id number] 02/13/2025 [id number] / / [id number] Procedures Procedure Name Priority Date/Time Associated Diagnosis [...] - 99 mg/dL 04/11/2025 5:25 PM CDT [facility] SPECIMEN SOURCE, GLUCOSE POC Venous 04/11/2025 5:25 PM CDT [facility] Blood, whole 04/11/2025 5:25 PM CDT 04/11/2025 5:33 PM CDT us Geoffrey Rasmussen MD POINT OF CARE TESTING Final Result Performing Organization Address [facility]/ZIP Co de Phone Number [facility] CLIA # [id number] [address] [address] * (ABNORMAL) HEMOGLOBIN AND HEMATOCRIT (04/11/2025 5:25 PM CDT) Only the most recent of19 resultswithin the time period is included. Pathologist [facility] HEMOGLOBIN 7.8(L) 12.0 - 16.0 g/dL 04/11/2025 6:04 PM CDT [facility] HEMATOCRIT 24.6(L) 36.0 - 46.0 % 04/11/2025 6:04 PM CDT [facility] Blood Venipuncture / Unknown 04/11/2025 5:25 PM CDT 04/11/2025 5:46 PM CDT Marlen Sauer MD HEMATOLOGY ORDERABLES Final Resu lt Performing Organization Address City/[facility]/ZIP Co de Phone Number [facility] CLIA # [id number] [id number] [place] [address] * HEMODIALYSIS (04/11/2025 11:50 AM CDT) Narrative Mayelin Zayas MD - 04/11/2025 11:50 AM CDT Mayelin Zayas MD 04/11/2025 11:52 AM [facility] - Procedure Note Primary Fountain Pen Nibs Inspector: Dr. Sarah Freeman PROCEDURE: Intermittent Hemodialysis INDICATION: [...] hemodialysis Tuesday, and Tuesday Mayelin Zayas MD [facility] 04/11/25, 11:50 AM us Simon Salazar MD DIALYSIS ORDERABLES Final Re sult * (ABNORMAL) CBC WITH DIFFERENTIAL (04/11/2025 4:05 AM CDT) Only the most recent of9 resultswithin the time period is included. WBC 12.2(H) 4.5 - 11.0 K/uL 04/11/2025 4:31 AM CDT [facility] RBC 2.53(L) 4.20 - 5.40 M/uL 04/11/2025 4:31 AM [facility] HEMOGLOBIN 7.7(L) 12.0 - 16.0 g/dL 04/11/2025 4:31 AM [facility] HEMATOCRIT 23.8(L) 36.0 - 46.0 % 04/11/2025 4:31 AM [facility] MCV 94.1 84.0 - 103.0 fL 04/11/2025 4:31 AM [facility] MCH 30.4 27.0 - 34.0 pg 04/11/2025 4:31 AM [facility] MCHC 32.4 30.0 - 35.0 g/dL 04/11/2025 4:31 AM [facility] PLATELETS 110(L) 140 - 440 K/uL 04/11/2025 4:31 AM [facility] MPV 11.5 8.9 - 12.8 fL 04/11/2025 4:31 AM [facility] RDW 18.3(H) 11.0 - 14.5 % 04/11/2025 4:31 AM [facility] RDW-STDEV 61.3(H) 37.0 - 54.0 fL 04/11/2025 4:31 AM [facility] NEUTROPHILS 70 42 - 75 % 04/11/2025 4:31 AM [facility] LYMPHOCYTES 16(L) 24 - 44 % 04/11/2025 4:31 AM [facility] MONOCYTES 10 2 - 10 % 04/11/2025 4:31 AM [facility] EOSINOPHILS 4 0 - 7 % 04/11/2025 4:31 AM [facility] BASOPHILS 0 0 - 1 % 04/11/2025 4:31 AM [facility] IMMATURE GRANULOCYTES 1 0 - 2 % 04/11/2025 4:31 AM [facility] NEUTROPHIL ABSOLUTE 8.60(H) 2.00 - 8.00 K/uL 04/11/2025 4:31 AM [facility] LYMPHOCYTE ABSOLUTE 1.91 1.20 - 4.00 K/uL 04/11/2025 4:31 AM CDT [facility] MONOCYTE ABSOLUTE 1.20(H) 0.10 - 0.60 K/uL 04/11/2025 4:31 AM CDT [facility] EOSINOPHIL ABSOLUTE 0.43 0.00 - 0.70 K/uL 04/11/2025 4:31 AM CDT [facility] BASOPHILS ABSOLUTE 0.01 0.00 - 0.20 K/uL 04/11/2025 4:31 AM CDT [facility] IMMATURE GRANULOCYTES ABSOLUTE 0.07 0.00 - 0.10 K/uL 04/11/2025 4:31 AM T [facility] SMEAR REVIEWED: NA - Not Applicable 04/11/2025 4:31 AM T [facility] Blood Venipuncture / Unknown 04/11/2025 4:05 AM CDT 04/11/2025 4:16 AM CDT us Toya BYRNES HEMATOLOGY ORDERABLES Final Res ult [facility] CLIA # [id number] [address] [place] [id number] * (ABNORMAL) BASIC METABOLIC PANEL (04/11/2025 4:05 AM CDT) Only the most recent of2 resultswithin the time period is included. SODIUM 132(L) 136 - 145 mmol/L 04/11/2025 5:00 AM T [facility] POTASSIUM 4.1 3.5 - 5.1 mmol/L 04/11/2025 5:00 AM T [facility] CHLORIDE 96(L) 98 - 107 mmol/L 04/11/2025 5:00 AM T [facility] CO2 24 22 - 29 mmol/L 04/11/2025 5:00 AM T [facility] CALCIUM 9.1 8.6 - 10.0 mg/dL 04/11/2025 5:00 AM CDT [facility] BUN 41(H) 6 - 20 mg/dL 04/11/2025 5:00 AM T [facility] CREATININE 5.57(H) 0.51 - 0.95 mg/dL 04/11/2025 5:00 AM CDT [facility] GLUCOSE 93 74 - 99 mg/dL 04/11/2025 5:00 AM T [facility] GFR 10(L) >=60 mL/min/1. 73 sq meter 04/11/2025 5:00 AM T [facility] Comment:eGFR calculated with 2020 CKD-EPI equation. Vegetarian diet, extremely high or low muscle mass, and may affect results. Cystatin C with Glomerular Filtration Rate is a suitable alternative for these patients. ANION GAP 12 9 - 20 mmol/L 04/11/2025 5:00 AM T [facility] Blood Venipuncture / Unknown 04/11/2025 4:05 AM CDT 04/11/2025 4:16 AM CDT us Mary Kate Reed NP CHEMISTRY ORDERABLES Final Re sult [facility] CLIA # [id number] [address] [place] [address] * VANCOMYCIN LEVEL RANDOM (04/09/2025 4:02 AM CDT) Only the most recent of3 resultswithin the time period is included. VANCOMYCIN, RANDOM 14.7 5.0 - 50.0 ug/mL 04/09/2025 4:44 AM CDT [facility] Blood Venipuncture / Unknown 04/09/2025 4:02 AM CDT 04/09/2025 4:12 AM CDT Narrative [facility] - 04/09/2025 4:44 AM CDT Vancomycin Therapeutic Ranges: Vancomycin Trough: 10 - 20 mcg/mL Vancomycin Peak: 25 - 50 mcg/mL us Marlen Sauer MD CHEMISTRY ORDERABLES Final Resul t [facility] CLIA # [id number] [address] [address] [place] [address] * (ABNORMAL) COMPREHENSIVE METABOLIC PANEL (04/09/2025 4:02 AM CDT) Only the most recent of7 resultswithin the time period is included. SODIUM 132(L) 136 - 145 mmol/L 04/09/2025 4:45 AM CDT [facility] POTASSIUM 4.3 3.5 - 5.1 mmol/L 04/09/2025 4:45 AM CDT [facility] CHLORIDE 97(L) 98 - 107 mmol/L 04/09/2025 4:45 AM T [facility] CO2 20(L) 22 - 29 mmol/L 04/09/2025 4:45 AM CDT [facility] CALCIUM 8.6 8.6 - 10.0 mg/dL 04/09/2025 4:45 AM CDT [facility] BUN 62(H) 6 - 20 mg/dL 04/09/2025 4:45 AM T [facility] CREATININE 6.81(H) 0.51 - 0.95 mg/dL 04/09/2025 4:45 AM T [facility] GLUCOSE 88 74 - 99 mg/dL 04/09/2025 4:45 AM CDT [facility] TOTAL PROTEIN 6.0(L) 6.4 - 8.3 g/dL 04/09/2025 4:45 AM CDT [facility] ALBUMIN 3.0(L) 3.5 - 5.2 g/dL 04/09/2025 4:45 AM CDT [facility] BILIRUBIN TOTAL 1.0 0.0 - 1.0 mg/dL 04/09/2025 4:45 AM T [facility] ALKALINE PHOSPHATASE 105(H) 35 - 104 U/L 04/09/2025 4:45 AM CDT [facility] AST 139(H) 10 - 35 U/L 04/09/2025 4:45 AM T [facility] ALT 383(H) <=35 U/L 04/09/2025 4:45 AM CDT [facility] GFR 8(L) >=60 mL/min/1. 73 sq meter 04/09/2025 4:45 AM T [facility] Comment:eGFR calculated with 2020 CKD-EPI equation. Vegetarian diet, extremely high or low muscle mass, and may affect results. Cystatin C with Glomerular Filtration Rate is a suitable alternative for these patients. ANION GAP 15 9 - 20 mmol/L 04/09/2025 4:45 AM T [facility] Blood Venipuncture / Unknown 04/09/2025 4:02 AM CDT 04/09/2025 4:12 AM CDT Marlen Sauer MD CHEMISTRY ORDERABLES Final [facility]ul t [id number] [address] [place] [id number] * TRANSFUSE RED BLOOD CELLS (04/09/2025 12:54 AM CDT) Only the most recent of4 resultswithin the time period is included. us Boston Chung III, DO BLOOD TRANSFUSION ORDERAB LES Final Result * TYPE AND SCREEN (04/08/2025 7:00 PM CDT) Only the most recent of3 resultswithin the time period is included. ABO GROUP O 04/08/2025 7:57 PM CDT [facility] RH (D) TYPE Negative 04/08/2025 7:57 PM CDT [facility] ANTIBODY SCREEN Negative 04/08/2025 7:57 PM CDT [facility] Blood Venipuncture / Unknown 04/08/2025 7:00 PM CDT 04/08/2025 7:08 PM CDT us Boston Chung III, DO BLOOD BANK ORDERABLES Sheldon jamaica Result - Final Performing Organization Address [facility]/ZIP Co de Phone Number [facility] [place] CLIA#[id number] [address] [place] [address], * PREPARE RED BLOOD CELLS (04/08/2025 6:17 PM CDT) Only the most recent of4 resultswithin the time period is included. COMPONENT TYPE [id number] [facility] [place] COMPONENT IDENTIFICATION [id number] [facility] [place] UNIT ABO O [facility] [place] UNIT RH NEG [facility] [place] CROSSMATCH Compatible [facility] [place] COMPONENT STATUS Transfused ME [facility] [place] COMPONENT EXPIRATION DATE/TIME [id number] [facility] [place] COMPONENT CODING SYSTEM 9500 [facility] [place] VOLUME, BLOOD PRODUCT 350 [facility] [place] Other, specify 04/08/2025 6: 17 PM CDT us Boston Chung III, DO LAB TRANSFUSION ORDERABLE S Edited Result - Final Performing Organization Address [facility]/ZIP Co de Phone Number [facility] [place] CLIA#[id number] [address] [place] [address], * (ABNORMAL) PROTIME-INR (04/08/2025 4:03 AM CDT) Only the most recent of5 resultswithin the time period is included. PROTIME 15.8(H) 12.7 - 14.9 Seconds 04/08/2025 4:22 AM CDT [facility] [place] INR 1.2 0.8 - 1.2 04/08/2025 4:22 AM CDT [facility] Blood Venipuncture / Unknown 04/08/2025 4:03 AM CDT 04/08/2025 4:10 AM CDT Narrative [facility] - 04/08/2025 4:22 AM CDT Expected Values for INR: DVT/PE Goal INR 2.5; range 2.0 - 3.0 Valve Replacement Tissue Goal INR 2.5; range 2.0 - 3.0 Valve Replacement Mechanical Goal INR 3.0; range 2.5 - 3.5 POST-DE Goal INR 2.5; range 2.0 - 3.0 or Goal INR 3.0; range 2.5 - 3.5 Atrial Fibrillation Goal INR 2.5; range 2.0 - 3.0 Ischemic Stroke Goal INR 2.5; range 2.0 - 3.0 Marlen Sauer MD HEMATOLOGY ORDERABLES Final Resu lt Performing Organization Address City/[facility]/ZIP Co de Phone Number [facility] CLIA # [id number] [address] [address] [place] [address] * (ABNORMAL) HAPTOGLOBIN (04/08/2025 4:03 AM CDT) Only the most recent of4 resultswithin the time period is included. HAPTOGLOBIN <10(L) 30 - 200 mg/dL 04/08/2025 5:04 AM CDT [facility] Blood Venipuncture / Unknown 04/08/2025 4:03 AM CDT 04/08/2025 4:11 AM CDT Marlen Sauer MD CHEMISTRY ORDERABLES Final Resul t Performing Organization Address [facility] Co de Phone Number [facility] CLIA # [id number] [address] [place] [address] * (ABNORMAL) MANUAL DIFFERENTIAL (04/07/2025 6:06 AM CDT) Only the most recent of5 resultswithin the time period is included. SEGMENTED NEUTROPHILS 73(H) 36 - 66 % 04/07/2025 6:49 AM T [facility] LYMPHOCYTES RELATIVE 9(L) 24 - 44 % 04/07/2025 6:49 AM [facility] MONOCYTES RELATIVE 7 4 - 10 % 2024 6:49 AM T [facility] EOSINOPHILS RELATIVE 1 0 - 3 % 04/07/2025 6:49 AM [facility] METAMYELOCYTES RELATIVE 5(H) 0 - 1 % 04/07/2025 6:49 AM [facility] MYELOCYTES - REL (DIFF) 5(H) 0 - 1 % 04/07/2025 6:49 AM [facility] PLATELET EST. Decreased 04/07/2025 6:49 AM [facility] NEUTROPHILS ABSOLUTE COUNT 11.17(H) 2.00 - 8.00 K/uL 04/07/2025 6:49 AM [facility] LYMPHOCYTES ABSOLUTE 1.38 1.20 - 4.00 K/uL 04/07/2025 6:49 AM [facility] ATYPICAL LYMPHS ABSOLUTE 04/07/2025 6:49 AM [facility] MONOCYTES ABSOLUTE 1.07(H) 0.10 - 0.60 K/uL 04/07/2025 6:49 AM [facility] EOSINOPHILS ABSOLUTE 0.15 0.00 - 0.70 K/uL 04/07/2025 6:49 AM [facility] ANISOCYTOSIS 2+ /hpf 04/07/2025 6:49 AM [facility] POIKILOCYTES 2+ /hpf 04/07/2025 6:49 AM [facility] POLYCHROMASIA 2+ /hpf 04/07/2025 6:49 AM [facility] TOTAL CELLS COUNTED IN DIFF 100 04/07/2025 6:49 AM [facility] Blood Venipuncture / Unknown 04/07/2025 6:06 AM CDT 04/07/2025 6:22 AM CDT us Marlen Sauer MD HEMATOLOGY ORDERABLES COM Final Result Performing Organization Address [facility] Co de Phone Number [facility] CLIA # [id number] [address] [address] * (ABNORMAL) CK (04/06/2025 3:14 AM CDT) CK 3,001(H) 26 - 192 U/L 04/06/2025 10:21 AM CDT [facility] Blood Venipuncture / Unknown 04/06/2025 3:14 AM CDT 04/06/2025 3:29 AM CDT us Simon Salazar MD CHEMISTRY ORDERABLES Final R esult Performing Organization Address [facility] Co de Phone Number [facility] CLIA # [id number] [facility] [address] * GC/CHLAMYDIA, UROGENITAL (04/05/2025 4:21 PM CDT) CHLAMYDIA DNA AMPLIFICATION NOT DETECTED Not Detected 04/05/2025 6:02 PM CDT [facility] GC DNA AMPLIFICATION NOT DETECTED Not Detected 04/05/2025 6:02 PM CDT [facility] Genital SPECIMEN FROM VAGINA / Unknown Collection / Unknown 04/05/2025 4:21 PM CDT 04/05/2025 4:29 PM CDT Narrative [facility] - 04/05/2025 6:02 PM CDT Results should not be used for the evaluation of suspected sexual abuse or for other medico-legal indications. The only legally accepted results are from culture. Results cannot be used to assess therapeutic success or failure since nucleic acids may persist following antimicrobial therapy. Marlen Sauer MD MICROBIOLOGY - GENERAL ORDERABLE S Final Result Performing Organization Address [facility] Co de Phone Number [facility] [employer] [facility] CLIA # [id number] [address] [address] [place] [address] * POTASSIUM LEVEL (04/05/2025 12:30 PM CDT) Pathologist [facility] POTASSIUM 3.9 3.5 - 5.1 mmol/L 04/05/2025 1:07 PM CDT [facility] Blood Venipuncture / Unknown 04/05/2025 12:30 PM CDT 04/05/2025 12:39 PM CDT Marlen Sauer MD CHEMISTRY ORDERABLES Final Resul t Performing Organization Address [facility] Co de Phone Number [facility] [employer] [facility] CLIA # [id number] [address] [address] [place] [address] * EXTRA TUBE (URINE IRAHE[place]) (04/05/2025 10:41 AM CDT) Urine (Urine, straight in/out catheter) Collection / Unknown 04/05/2025 10:41 AM CDT 04/05/2025 10:47 AM CDT Marlen Sauer MD URINE ORDERABLES Final Result Performing Organization Address [facility] Co de Phone Number [facility] CLIA # [id number] [address] [address] * (ABNORMAL) URINALYSIS WITH REFLEX MICROSCOPIC (04/05/2025 10:41 AM CDT) COLOR UA Brown(A) Pale to Dark Yellow 04/05/2025 11:02 AM [facility] CLARITY UA Turbid(A) Clear 04/05/2025 11:02 AM [facility] SPECIFIC GRAVITY UA 1.014 1.003 - 1.035 04/05/2025 11:02 AM [facility] PH UA 7.5 5.0 - 8.0 04/05/2025 11:02 AM [facility] LEUKOCYTE ESTERASE UA 3+(A) Negative 04/05/2025 11:02 AM [facility] NITRITE UA Negative Negative 04/05/2025 11:02 AM [facility] PROTEIN UA 2+(A) Negative 04/05/2025 11:02 AM [facility] GLUCOSE UA Negative Negative 04/05/2025 11:02 AM [facility] KETONES UA Unable to Evaluate(A) Negative 04/05/2025 11:02 AM [facility] Comment:MEDICATION/COLOR INT ERFERENCE UROBILINOGEN UA Unable to Evaluate(A) <2.0 mg/dL 04/05/2025 11:02 AM [facility] Comment:MEDICATION/COLOR INT ERFERENCE BILIRUBIN UA Unable to Evaluate(A) Negative 04/05/2025 11:02 AM [facility] Comment:MEDICATION/COLOR INT ERFERENCE BLOOD UA Unable to Evaluate(A) Negative 04/05/2025 11:02 AM [facility] Comment:MEDICATION/COLOR INT ERFERENCE WBC UA >100(A) 0 - 2 /hpf 04/05/2025 11:02 AM [facility] RBC UA >100(A) 0 - 2 /hpf 04/05/2025 11:02 AM [facility] BACTERIA UA 4+(A) Negative /hpf 04/05/2025 11:02 AM [facility] EPITHELIAL CELLS, URINE >25(A) 0 - 5 /hpf 04/05/2025 11:02 AM [facility] WBC CLUMPS Present(A) Absent 04/05/2025 11:02 AM CDT [facility] Urine (Urine, straight in/out catheter) Collection / Unknown 04/05/2025 10:41 AM CDT 04/05/2025 10:47 AM CDT Marlen Sauer MD URINE ORDERABLES Final Result [facility] CLIA # [id number] [address] [place] [address] [place] [address] * (ABNORMAL) URINE CULTURE (04/05/2025 10:41 AM CDT) CULTURE PROTEUS MIRABILIS(A) JORGE LUIS MCG/ML 04/07/2025 7:12 AM CDT [facility] Urine (Urine, straight in/out catheter) Collection / [...] MICROBIOLOGY - GENERAL ORDERABLE S Final Result [facility] CLIA # [id number] [address] [place] [id number] * (ABNORMAL) DRUG SCREEN, URINE (04/05/2025 10:39 AM CDT) [facility] AMPHETAMINE QUAL, URINE Presumptive Positive(A) Negative 04/05/2025 11:30 AM CDT [facility] BARBITURATE QUAL, URINE Negative Negative 04/05/2025 11:30 AM CDT [facility] BENZODIAZEPINE QUAL, URINE Presumptive Positive(A) Negative 04/05/2025 11:30 AM CDT [facility] COCAINE QUAL URINE Negative Negative 04/05/2025 11:30 AM CDT [facility] OPIATE QUAL, URINE Negative Negative 04/05/2025 11:30 AM CDT [facility] CANNABINOIDS QUAL, URINE Presumptive Positive(A) Negative 04/05/2025 11:30 AM CDT [facility] OXYCODONE QUAL, URINE Negative Negative 04/05/2025 11:30 AM CDT [facility] METHADONE QUAL, URINE Negative Negative 04/05/2025 11:30 AM CDT [facility] FENTANYL QUAL, URINE Negative Negative 04/05/2025 11:30 AM CDT [facility] CREATININE, URINE 24.8(L) 29.0 - 226.0 mg/dL 04/05/2025 11:30 AM T [facility] Comment:Reference Range vari es with fluid intake and diet. Urine (Urine, straight in/out catheter) Collection / Unknown 04/05/2025 10:39 AM CDT 04/05/2025 10:47 AM CDT Narrative [facility] - 04/05/2025 11:30 AM CDT This test [...] Marlen Sauer MD URINE ORDERABLES Final Result [facility] CLIA # [id number] [address] [place] [id number] * EKG 12-LEAD (04/05/2025 9:10 AM CDT) Only the most recent of2 resultswithin the time period is included. 04/05/2025 9:10 AM CDT [employer] 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 [address] [place] [address] Test Date: 2025-04-05 Pat Name: SERA LITTLE Department: 12 Room: 6121 Gender: Female Stacker Straightener: [id number] : 1990 Requested By: Order Number: [id number] Reading MD: Christina Campos Measurements Intervals [place] Rate: 82 P: 55 MA: 132 QRS: 63 QRSD: 104 T: 93 [...] INTERFACE SYSTEM - 04/05/2025 9:04 AM CDT [facility] Cardiovascular Services Echocardi[facility] [place] [address] Transthoracic Echocardiography Patient: Sera Little Study ID: ECHO NISHA Yoo Gender: F : 1990 Age: 34 Room: [facility] Study 04/05/2025 Pt Inpatient Date: Status: Study 08:05:11 AM CSN #: [id number] Time: Ordering:Vale Ballard Resources Representative: Jillian Chaves RDCS Indications and History: Endocarditis Acute/subacute bacterial. Summary [...] (H) sully values outside specified reference range. [facility] Echo Labs are accredited with the Intersocietal Accreditation Commission - Echocardiography. Prepared and Electronically Authenticated Deyvi Sanchez MD Confirmed 04/05/2025 09:04 Procedure Note Deyvi Sanchez MD - 04/05/2025 [facility] Cardiovascular Services Echocardiography Laboratory [address] [place] [address] Transthoracic Echocardiography Patient: Sera Little Study ID: CATALINA Yoo Gender: F : 1990 Age: 34 Room: [facility] 04/05/2025 Inpatient Date: Status: Study 08:05:11 AM [facility] #: [id number] Time: Ordering:Vale Ballard Resources Representative: Jillian Chaves [facility] Indications and History: Endocarditis Acute/subacute bacterial. Summary [...] (H) sully values outside specified reference range. [facility] Echo Labs are accredited with theIntersocietal Accreditation Commission - Echocardiography. Prepared and Electronically Authenticated Deyvi Sanchez MD Confirmed 04/05/2025 09:04 us Vale Ballard NP US ORDERABLES Final Result INTERFACE SYSTEM Refer to clinic/hospital department * AMMONIA LEVEL (04/05/2025 7:26 AM CDT) AMMONIA 26.4 11.0 - 51.0 umol/L 04/05/2025 8:03 AM CDT [facility] Blood, venous Venipuncture / Unknown 04/05/2025 7:26 AM CDT 04/05/2025 7:30 AM CDT Vale Mercy Ballard AUDIO VISUAL PRODUCTION SPECIALIST CHEMISTRY ORDERABLES Final Result [facility] CLIA # [id number] [address] [address] [place] [address] * PERIPHERAL BLOOD SMEAR PATHOLOGY INTERP (04/05/2025 3:24 AM CDT) Pathologist [facility] PERIPHERAL BLOOD SMEAR INTERP See Interpretation Below 04/08/2025 1:35 PM CDT [facility] INTERPRETED BY: Freddie Qiu MD 04/08/2025 1:35 PM CDT [facility] Blood Venipuncture / Unknown 04/05/2025 3:24 AM CDT 04/05/2025 3:34 AM CDT Narrative [facility] - 04/08/2025 1:35 PM CDT CLINICAL INFORMATION: [...] ORDERABLES Final Resu lt Performing Organization Address [facility] Co de Phone Number [facility] CLIA # [id number] [address] [address] [place] [address] * (ABNORMAL) LACTATE DEHYDROGENASE (04/05/2025 3:24 AM CDT) [facility] LD (LACTATE DEHYDROGENASE) >2,500(H) 135 - 214 U/L 04/05/2025 4:37 AM CDT [facility] Comment:Slight hemolysis pre sent. Result may be falsely elevated. Blood Venipuncture / Unknown 04/05/2025 3:24 AM CDT 04/05/2025 3:34 AM CDT us Enio Wadsworth MD CHEMISTRY ORDERABLES Final Resu Performing Organization Address [facility] de Phone Number [facility] CLIA # [id number] [address] [address] * (ABNORMAL) TROPONIN 6 HR, 5TH GEN (04/04/2025 10:52 PM CDT) [facility] TROPONIN T, 6 HR 5TH GEN 280(HH) <11 ng/L 04/04/2025 11:34 PM CDT [facility] Comment:Hemolysis can falsel y decrease Troponin quantitation. DELTA 6HR TROPONIN T % -20(LL) See Interp. % 04/04/2025 11:34 PM CDT [facility] Blood Venipuncture / Unknown 04/04/2025 10:52 PM CDT 04/04/2025 10:55 PM CDT Narrative [facility] - 04/04/2025 11:34 PM CDT Troponin elevated. Delta significant change. us Vale Ballard AUDIO VISUAL PRODUCTION SPECIALIST CHEMISTRY ORDERABLES Final Result Performing Organization Address [facility]/ZIP Co de Phone Number [facility] CLIA # [id number] [address] [address] [place] [address] * LACTIC ACID (04/04/2025 10:42 PM CDT) Only the most recent of3 resultswithin the time period is included. LACTIC ACID 1.6 <=2.0 mmol/L 04/04/2025 11:08 PM CDT [facility] Blood Venipuncture / Unknown 04/04/2025 10:42 PM CDT 04/04/2025 10:46 PM CDT us Enio Wadsworth MD CHEMISTRY ORDERABLES Final Resu lt Performing Organization Address [facility] Co de Phone Number [facility] CLIA # [id number] [address] [address] [place] [address] * ETHANOL LEVEL (04/04/2025 10:42 PM CDT) ETHANOL <10.10 <10.10 mg/dL 04/04/2025 11:22 PM CDT [facility] ETHANOL % <0.01 <=0.01 %w/v 04/04/2025 11:22 PM CDT [facility] Blood Venipuncture / Unknown 04/04/2025 10:42 PM CDT 04/04/2025 10:48 PM CDT us Vale Ballard NP CHEMISTRY ORDERABLES Final Result Performing Organization Address [facility]/ZIP Co de Phone Number [facility] CLIA # [id number] [address] [place] [address] * POC LACTIC ACID (04/04/2025 10:40 PM CDT) LACTIC ACID POC 1.5 <=2.0 mmol/L 04/04/2025 10:40 PM CDT [facility] SPECIMEN SOURCE, GASES POC Arterial 04/04/2025 10:40 PM CDT [facility] PUNC SITE POC ART PUNCT 04/04/2025 10:40 PM CDT [facility] Blood 04/04/2025 10:4 0 PM CDT 04/04/2025 10:42 PM CDT Narrative [facility] - 04/04/2025 10:40 PM CDT References ranges displayed are for Arterial samples. us Enio Wadsworth MD POINT OF CARE TESTING Final Res ult Performing Organization Address [facility]/ZIP Co de Phone Number [facility] CLIA # [id number] [address] [place] [address] * (ABNORMAL) BLOOD GAS ARTERIAL (04/04/2025 10:40 PM CDT) PH BLOOD POC 7.52(H) 7.35 - 7.45 04/04/2025 10:40 PM CDT [facility] PCO2 POC 37 35 - 45 mm Hg 04/04/2025 10:40 PM CDT [facility] PO2 POC 68(L) 80 - 105 mm Hg 04/04/2025 10:40 PM CDT [facility] HCO3 (CALC) POC 30(H) 22 - 26 mmol/L 04/04/2025 10:40 PM [facility] HEMOGLOBIN POC 8.0(L) 12.0 - 18.0 g/dL 04/04/2025 10:40 PM [facility] BASE EXCESS POC 7(H) -2 - 3 mmol/L 04/04/2025 10:40 PM [facility] O2 SATURATION POC 99(H) 95 - 98 % 04/04/2025 10:40 PM [facility] SODIUM POC 133(L) 138 - 146 mmol/L 04/04/2025 10:40 PM [facility] POTASSIUM POC 3.1(L) 3.5 - 4.9 mmol/L 04/04/2025 10:40 PM [facility] HEMATOCRIT POC 24(L) 38 - 51 % 04/04/2025 10:40 PM [facility] PH TEMP CORRECT 7.52(H) 7.35 - 7.45 04/04/20 10:40 PM [facility] PCO2 TEMP CORRECT 37 35 - 45 mm Hg 04/04/2025 10:40 PM [facility] PO2 TEMP CORRECT 68(L) 80 - 105 mm Hg 04/04/2025 10:40 PM [facility] SPECIMEN SOURCE, GASES POC Arterial 04/04/2025 10:40 PM [facility] CALCIUM IONIZED POC 4.0(L) 4.8 - 5.2 mg/dL 04/04/2025 10:40 PM [facility] TCO2 (CALC) POC 31(H) 23 - 27 mmol/L 04/04/2025 10:40 PM [facility] PUNC SITE POC ART PUNCT 04/04/2025 10:40 PM [facility] PATIENT'S TEMPERATURE POC 37.0 degrees 04/04/2025 10:40 PM [facility] Blood, arterial 04/04/2025 1 0:40 PM CDT 04/04/2025 10:42 PM CDT us Enio Wadsworth MD ABG ORDERABLES Final Result [facility] HARISH # [id number] [id number] [place] [address] * US ABDOMEN COMPLETE (04/04/2025 9:03 PM [...] 297(HH) <=10 ng/L 04/04/2025 9:44 PM CDT [facility] Comment:Hemolysis can falsel y decrease Troponin quantitation. DELTA 2HR TROPONIN T % -16 See Interp. % 04/04/2025 9:44 PM CDT [facility] Blood Venipuncture / Unknown 04/04/2025 8:44 PM CDT 04/04/2025 8:55 PM CDT Narrative [facility] - 04/04/2025 9:44 PM CDT Troponin elevated. Delay in collection of timed specimen beyond recommended collection interval. Results must be interpreted in clinical context. Delta not changing. Vale Ballard NP CHEMISTRY ORDERABLES Final Result [facility] CLIA # [id number] [address] [place] [address] * (ABNORMAL) ACUTE HEPATITIS PANEL (04/04/2025 8:44 PM CDT) [facility] HEPATITIS B SURFACE AG NON-REACT GARY Non-react gary 04/04/2025 10:07 PM CDT [facility] Comment:A non-reactive test result does not exclude the possibility of exposure to or infection with hepatitis B. HEPATITIS B CORE IGM NON-REACT GARY Non-react gary 04/04/2025 10:07 PM CDT [facility] Comment:IgM antibodies to HB c were not detected; does not exclude the possibility of exposure to HBV. HEPATITIS A IGM Non-react gary Non-react gary 04/04/2025 10:07 PM CDT [facility] Comment:A negative test resu lt does not exclude the possibility of exposure to Hepatitis A virus. HEPATITIS C AB REACTIVE( A) Non-react gary 04/04/2025 10:07 PM CDT [facility] Blood Venipuncture / Unknown 04/04/2025 8:44 PM CDT 04/04/2025 9:14 PM CDT Narrative [facility] - 04/04/2025 10:07 PM CDT Confirmatory testing by HCV_RNA by PCR will be automatically reflexed on reactive results. us Leroy Talley MD CHEMISTRY ORDERABLES Fin al Result Performing Organization Address City/[facility]/ZIP Co de Phone Number [facility] CLIA # [id number] [address] [address] [place] [address] * HEPATITIS C RNA PCR, QUANTITATIVE (04/04/2025 8:44 PM CDT) [facility] HCV RNA, QUANT REAL TIME PCR <15 NOT DETECTED NOT DETECTED IU/mL 04/08/2025 3:53 PM CDT [facility] HCV RNA QUANT PCR COPIES IU/ML <1.18 NOT DETECTED NOT DETECTED Log IU/mL 04/08/2025 3:53 PM CDT [facility] Comment: For additional information, please refer to http://education.[employer]/faq/NTW85b1 (This link is being provided for informational/ educational purposes only.) Blood Venipuncture / Unknown 04/04/2025 8:44 PM CDT 04/04/2025 10:07 PM CDT Narrative [facility] - 04/08/2025 3:53 PM CDT Performing Organization Information: Site ID: [place] Name: [employer] Address: [address] [address] Director: Nikolai Blank MD us Leroy Talley MD CHEMISTRY ORDERABLES Fin al Result [facility] * XR CHEST PA OR AP 1 [...] 352(HH) <=10 ng/L 04/04/2025 6:27 PM CDT [facility] Comment:Hemolysis can falsel y decrease Troponin quantitation. Blood Venipuncture / Unknown 04/04/2025 5:27 PM CDT 04/04/2025 5:41 PM CDT [facility] - 04/04/2025 6:27 PM CDT Troponin elevated. Vale Ballard NP CHEMISTRY ORDERABLES Final Result [facility] CLIA # [id number] [address] [address] [place] [address] * (ABNORMAL) PROCALCITONIN (04/04/2025 5:27 PM CDT) PROCALCITONIN 6.61(H) <=0.08 ng/mL 04/04/2025 6:39 PM CDT [facility] Blood Venipuncture / Unknown 04/04/2025 5:27 PM CDT 04/04/2025 5:42 PM CDT [facility] - 04/04/2025 6:39 PM CDT The utility [...] 2-4 hours and peaks within 6-24 hours. us Vale Ballard NP CHEMISTRY ORDERABLES Final Result Performing Organization Address [facility]/ZIP Co de Phone Number [facility] CLIA # [id number] [address] [place] [phone] * (ABNORMAL) RETICULOCYTES (04/04/2025 5:27 PM CDT) Pathologist [facility] RETICULOCYTES 6.0(H) 0.9 - 2.2 % 04/04/2025 5:52 PM CDT [facility] IMMATURE RETIC FRACTION 62.9(H) 3.3 - 13.6 % 04/04/2025 5:52 PM CDT [facility] RETICULOCYTE, ABSOLUTE 0.1100(H) 0.0160 - 0.0700 10e6/uL 04/04/2025 5:52 PM CDT [facility] RETICULOCYTE HEMOGLOBIN CONTENT 33.7 27.8 - 37.7 pg 04/04/2025 5:52 PM CDT [facility] Blood Venipuncture / Unknown 04/04/2025 5:27 PM CDT 04/04/2025 5:40 PM CDT us Enio Wadsworth MD HEMATOLOGY ORDERABLES Final Res ult [facility] CLIA # [id number] [address] [place] [phone] * HCG QUANTITATIVE, BLOOD (04/04/2025 5:27 PM CDT) HCG QUANT, BLOOD 0.6 0.0 - 1.0 mIU/mL 04/04/2025 6:39 PM CDT [facility] Comment: HCG Quantitative Reference Range Male <= [...] PM CDT 04/04/2025 5:42 PM CDT us Vale Ballard NP CHEMISTRY ORDERABLES Final Result Performing Organization Address City/[facility]/ZIP Co de Phone Number [facility] CLIA # [id number] [address] [address] [place], [place] [id number] * (ABNORMAL) PHOSPHORUS (04/04/2025 5:27 PM CDT) [facility] Signature PHOSPHORUS 9.2(H) 2.5 - 4.5 mg/dL 04/04/2025 6:41 PM CDT [facility] Blood Venipuncture / Unknown 04/04/2025 5:27 PM CDT 04/04/2025 5:42 PM CDT us Enio Wadsworth MD CHEMISTRY ORDERABLES Final Resu lt [facility] CLIA # [id number] [address] [address] [place], [place] [address] * (ABNORMAL) MAGNESIUM LEVEL (04/04/2025 5:27 PM CDT) Only the most recent of2 resultswithin the time period is included. [facility] MAGNESIUM 2.8(H) 1.6 - 2.6 mg/dL 04/04/2025 6:41 PM CDT [facility] Blood Venipuncture / Unknown 04/04/2025 5:27 PM CDT 04/04/2025 5:42 PM CDT Enio Wadsworth MD CHEMISTRY ORDERABLES Final Resu lt Performing Organization Address [facility]/ZIP Co de Phone Number [id number] [address] [place] [address] * (ABNORMAL) MRSA PCR RAPID SCREEN (04/04/2025 4:24 PM CDT) [facility] MRSA PCR RESULT MRSA detected( A) MRSA not detected 04/04/2025 5:47 PM CDT [facility] Surveillance ANTERIOR NARES SWAB / Unknown Collection / Unknown 04/04/2025 4:24 PM CDT 04/04/2025 4:27 PM CDT Narrative [facility] - 04/04/2025 5:47 PM CDT Positive MRSA [...] ORDERABL ES Final Result Performing Organization Address City/[facility]/ZIP Co de Phone Number [facility] [id number] [address] [place] [phone] * RESPIRATORY PATHOGEN PCR PANEL (04/04/2025 4:24 PM CDT) [facility] Respiratory Pathogen PCR Panel NOT DETECTED No respiratory pathogen nucleic acids detected. 04/04/2025 5:25 PM CDT [facility] COVID-19 PCR NOT DETECTED Not Detected 04/04/2025 5:25 PM CDT [facility] Upper Respiratory ENTIRE NASOPHARYNX / Unknown Collection / Unknown 04/04/2025 4:24 PM CDT 04/04/2025 4:27 PM CDT [facility] - 04/04/2025 5:25 PM CDT The Film [...] MICROBIOLOGY - GENERAL ORDERABL ES Final Result [facility] CLIA # [id number] [address] [place] [address] * BLOOD CULTURE (04/04/2025 1:30 PM CDT) Only the most recent of2 resultswithin the time period is included. [facility] BLOOD CULTURE No growth 04/09/2025 7:45 PM CDT [facility] Blood (Peripheral) Venipuncture / Unknown 04/04/2025 1:30 PM CDT 04/04/2025 1:50 PM CDT us Lupe Reardon MD MICROBIOLOGY - GENERAL ORDERABL ES Final Result [facility] HARISH # [id number] [address] [id number] [place] [address] * CT ABDOMEN PELVIS WO CONTRAST (04/04/2025 [...] TYPE O NEG 04/04/2025 2:38 PM CDT [facility] Blood BLOOD SPECIMEN / Unknown Venipuncture / Unknown 04/04/2025 11:28 AM CDT 04/04/2025 2:38 PM CDT us Lupe Reardon MD BLOOD BANK ORDERABLES Final Res ult [id number] [address] [place] [id number] * (ABNORMAL) SEDIMENTATION RATE (04/04/2025 11:28 AM CDT) ESR (SEDIMENTATION RATE) 83(H) 0 - 20 mm/Hr 04/04/2025 12:22 PM CDT [facility] Blood Venipuncture / Unknown 04/04/2025 11:28 AM CDT 04/04/2025 12:02 PM CDT Narrative [facility] - 04/04/2025 12:22 PM CDT [employer] Lot: #[id number] Exp Date: 07/16/2026 SR 0125-1 EXP. 04/20/25 SR 0125-2 EXP. 04/20/25 Lupe Reardon MD HEMATOLOGY ORDERABLES Final Res ult Performing Organization Address [facility] Co de Phone Number [facility] CLIA # [id number] [address] [place] [phone] * (ABNORMAL) C-REACTIVE PROTEIN (04/04/2025 11:28 AM CDT) CRP 165.0(H) <5.0 mg/L 04/04/2025 12:20 PM CDT [facility] Blood Venipuncture / Unknown 04/04/2025 11:28 AM CDT 04/04/2025 12:02 PM CDT Lupe Reardon MD CHEMISTRY ORDERABLES Final Resu lt Performing Organization Address City/[facility] Co de Phone Number [facility] CLIA # [id number] [address] [place] [phone] * (ABNORMAL) BRAIN NATRIURETIC PEPTIDE, BNP OR PROBNP (04/04/2025 11:28 AM CDT) PROBNP, N TERMINAL >70,000(H ) 0 - 125 pg/mL 04/04/2025 12:35 PM CDT [facility] Comment: INTERPRETIVE COMMENT based on diagnosis: Diagnostic [...] Reardon MD CHEMISTRY ORDERABLES Final Resu lt [facility] [id number] [address] [place] [phone] from Last 3 Months Insurance [place]ICA[place] COMPLETE HMO [facility] [id number] Advance Directives For more information, please contact: [phone] * Full Code (Latest Code Status on [...] 2:25 PM 10/22/2022 4:47 PM Care Teams Distribution Tech Relationship Specialty Start Date End Date Laurent Wolfe MD [address] [address] PCP - General Family Practice 01/10/22
[2025-06-11] MEDS: labetalol 5 mg/mL SDV 20mL 20 MG IVP (10:56)
--- NOTE | 2025-06-11 11:03 | ECG_ITS ---
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 Measurements Intervals [place] Rate: 117 P: 0 DC: 0 QRS: 60 QRSD: 103 T: 156 QT: 363 QTc: 508 Interpretive Statements ATRIAL FLUTTER/TACHYCARDIA WITH RAPID VENTRICULAR RESPONSE NONSPECIFIC ST & T-WAVE ABNORMALITY Compared to ECG 02/19/2022 15:38:55 Sinus rhythm no longer present Atrial abnormality no longer present Possible ischemia no longer present T-wave abnormality still present Electronically Signed On 06-11-2025 18:09:35 CDT by Zion Houston M.D. [email or web address]
[2025-06-11 11:06] VITALS: BP 125/86; PULSE 118; O2SAT 96
[2025-06-11 11:24] LABS: Hematocrit 35.6 % (36-47); Hemoglobin 11.00 g/dL (11.27-16.99); Mean Corpuscular HGB Conc 30.9 g/dL (30-55); Mean Corpuscular Hemoglobin 30.3 pg (27-33); Mean Corpuscular Volume 98.1 fl (85-98); Nucleated Red Blood Cells % 0 %; Platelet Count 158 10^3/cmm (157-399); Red Blood Count 3.63 10^6/uL (3.85-5.65); White Blood Count 7.10 10^3/uL (3.29-11.43)
[2025-06-11 11:45] LABS: Lactic Sepsis W/Reflex 0.8 mmol/L (0.5-2.2)
[2025-06-11 11:48] LABS: Alanine Aminotransferase 6 U/L (0-33); Albumin Level 4.0 g/dL (3.5-5.2); Alkaline Phosphatase 135 U/L (35-105); Anion Gap 14.5 (5-19); Aspartate Amino Transferase 13 U/L (0-32); Blood Urea Nitrogen 6 mg/dL (6-20); Calcium 9.3 mg/dL (8.5-10.5); Carbon Dioxide 30 mmol/L (22-29); Chloride 97 mmol/L (98-107); Creatinine Clr Calc Pharmacy 26.4088; Globulin 3.0 g/dL (1.3-4.6); Glucose 80 mg/dL (65-115); Osmolality Calculated 283 mOsm/kg (285-295); Potassium 3.5 mmol/L (3.5-5.1); Sodium 138 mmol/L (136-145); Total Protein 7.0 g/dL (6.6-8.7)
[2025-06-11 11:56] LABS: Troponin(5th) Baseline 227 ng/L (0-10)
--- NOTE | 2025-06-11 12:10 | ECG_ITS ---
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 Measurements Intervals [place] Rate: 119 P: 0 WI: 0 QRS: 66 QRSD: 103 T: 149 QT: 356 QTc: 501 Interpretive Statements ATRIAL FLUTTER/TACHYCARDIA WITH RAPID VENTRICULAR RESPONSE NONSPECIFIC ST & T-WAVE ABNORMALITY Compared to ECG 06/11/2025 11:03:26 No significant changes Electronically Signed On 06-11-2025 18:16:48 CDT by Zion Houston M.D. [email or web address]
[2025-06-11] MEDS: amiodarone 150 MG/100 ML PREMIX 400 MG IV (12:39)
[2025-06-11 13:39] VITALS: BP 118/73; PULSE 116; O2SAT 98
[2025-06-11 13:46] LABS: Troponin 5 2HR 226.3 ng/L (0-10)
[2025-06-11 13:47] LABS: Troponin 5 2HR Delta -0.7 ABS# (0-10)
== END 2025-06-11 14:22 | disposition home or self-care (01) ==
PROVIDERS: Emergency Provider Emergency Medicine; PCP Family Medicine
DX: I13.0 Hypertensive heart and chronic kidney disease with heart failure and stage 1 through stage 4 chronic kidney disease, or unspecified chronic kidney disease (principal); N18.9 Chronic kidney disease, unspecified; I50.9 Heart failure, unspecified; Z79.82 Long term (current) use of aspirin; F17.210 Nicotine dependence, cigarettes, uncomplicated
CPT/HCPCS: 71045; 80053; 83605; 84484; 85025; 87040; 93005; 96374; 96375; 99285; J0283; J3490